=== PATIENT | male | born 1950 | race Caucasian/White ===

== ENCOUNTER → 2018-02-26 06:38 | Outpatient (CLI) | payer MEDICARE, SELFPAY ==
[2017-05-15 11:53] VITALS: BMI 35.6
--- NOTE | 2018-02-26 06:38 | DT_ITS ---
This patient was seen during an EMR downtime February 19, 2018 - February 26, 2018. This patient may have a combination of paper and electronic documentation or all paper documentation. All documentation is viewable within the e-chart portion of [employer] for each patient visit.
[2018-02-26 08:36] LABS: Microalbumin,Random Urine 26.7 mg/L (NO RANGE EST.); Microalbumin:Creatinine Ratio 164.8 mg/g CRE (<30 mg/g CRE)
[2018-02-26 08:44] LABS: ALB/GLOB Ratio 1.1 RATIO (0.9-2.4); AST(SGOT) 17 U/L (15-37); Alanine Aminotransfer ALT/SGPT 34 U/L (16-61); Albumin, Serum 4.2 g/dL (3.2-5.0); Alkaline Phosphatase 68 U/L (45-117); Anion Gap 8 (5-15); BUN 15 mg/dL (7-18); BUN/Creat Ratio 12.7 RATIO (10-20); Bilirubin, Direct 0.14 mg/dL (0.00-0.30); Chloride 105 mmol/L (98-107); Cholesterol 103 mg/dL (200); Creatinine, Serum 1.18 mg/dL (0.70-1.30); EST Glomerular Filtration Rate 65 mL/min (>60); Est Glom Filt Rate - Afr Amer 79 mL/min (>60); Globulin 3.7 g/dL (2.2-4.2); Glucose 92 mg/dL (74-106); High Density Lipoprotein 37 mg/dL; Potassium 3.8 mmol/L (3.5-5.1); Protein, Total 7.9 g/dL (6.4-8.2); Sodium Level 142 mmol/L (136-145); Triglycerides 112 mg/dL; Very Low Density Lipoprotein 22 mg/dL (5-40)
== END ==
PROVIDERS: Family Provider Preventive Medicine Occupational Medicine; PCP Preventive Medicine Occupational Medicine; Visit Provider Nurse Practitioner Family
DX: E78.2 Mixed hyperlipidemia (principal); I10 Essential (primary) hypertension
CPT/HCPCS: 36415; 80053; 80061; 82043; 82248; 82570

== ENCOUNTER 2018-03-14 08:02 | Inpatient (IN) | payer MEDICARE, SELFPAY ==
[2017-05-15 11:53] VITALS: BMI 35.6
[2018-03-14] VITALS (13 sets, daily range): BP systolic 117–191; BP diastolic 65–105; PULSE 32–122; RESP 11–16; TEMP 36.4–37.3; O2SAT 96–99; BMI 32.1
--- NOTE | 2018-03-14 08:22 | CT_ITS ---
STUDY: CT ABDOMEN AND PELVIS WITH CONTRAST REASON FOR EXAM: Male, 68 years old. Bloody stool, abdominal pain RADIATION DOSAGE (If Supplied By Facility): CTDIvol = ( 20.25 ) mGy, DLP = ( 1294.02 ) mGycm TECHNIQUE: Transaxial images were obtained from the dome of the diaphragm to the symphysis pubis with oral contrast. 100 ml of Isovue 300 contrast was administered. Sagittal and coronal images were reconstructed. Individualized dose optimization techniques were used for this CT. COMPARISON: None. FINDINGS: The visualized lung bases are unremarkable. Coronary artery calcifications are present. Normal liver. There is a small calcified gallstone. Normal spleen. Normal pancreas. Normal bilateral adrenal glands. Normal right kidney. Normal left kidney. Normal visualized stomach. There may be mild thickening to the wall of the distal esophagus. Normal small intestine. There appears to be mild wall thickening within the mid transverse colon. The appendix is visualized and appears normal. Mild atherosclerotic calcification is seen within the abdominal aorta. Normal inferior vena cava. Normal retroperitoneum. The urinary bladder is nearly empty at the time of scanning. The prostate gland is slightly enlarged. There is a small umbilical hernia containing fat. Degenerative changes are present within the lower thoracic spine. CT/Abdomen/Pelvis WITH Contrast IMPRESSION: Relatively focal thickening within the mid transverse colon. This can be further evaluated with endoscopy or contrast enema, as clinically indicated. Question mild wall thickening within the distal esophagus. This may represent esophagitis. Cholelithiasis. Additional findings, as detailed above. Electronically Signed: Cj Glover DO at 10:36 EDT Tel , Service support ,
--- NOTE | 2018-03-14 08:29 | ED.VISSUMM ---
- ER Visit Summary Date of Service: 03/14/18 Chief Complaint: GI bleed History of Present Illness: The patient is a 68 M who presents with 2 episodes of bright red blood in his stool this morning. He denies any abdominal pain. He has a history of rectal surgery several years ago and states he has poor muscle tone. He has not had a colonoscopy in the past 5 years. He has a history of gastric ulcers but no history of lower GI bleeding. He does have previous history of [place] and coronary artery disease. He has 2 cardiac stents. Plavix was held this morning. Physical Examination: Blood pressure is 191/105, otherwise vitals are normal. Patient sitting upright in bed no acute distress. Head neck examination is unremarkable. Heart is regular rate and rhythm. Lungs are clear with good air movement. Abdomen is soft and nontender. He has a small reducible periumbilical hernia. Rectal examination reveals no evidence of external hemorrhoids. There is a small amount of bright red blood on gloved finger. Test Results: CBC is remarkable only for platelet count of 125,000. Chemistry studies are normal. Coags normal. Stool guaiac is positive. CT abdomen pelvis with p.o. and IV contrast shows focal thickening within the mid transverse colon. Barium enema versus colonoscopy is recommended. Emergency Department Course and Treatment: Patient is given IV fluids here. Blood pressure is improved to 139/84. Patient had 1 episode with a bloody bowel movement while here in the emergency room. I spoke with Dr. Cueva, on-call for surgery. She will follow with the patient and plan for probable colonoscopy. I will speak with the hospitalist. Treatment Plan: [] Disposition: Admit Impression: GI bleed This note was generated with [employer] dictation software. It may contain incorrect words, spelling, and punctuation that were not noted in review of the chart prior to signing ED Disposition - Plan for ED Patient: Chief Complaint: GI Bleed Referrals: Xavier El DO [Primary Care Provider] -
[2018-03-14] MEDS: 0.9% Normal Saline 1,000 ML 150 ML IV (08:40)
[2018-03-14 09:07] LABS: International Normalized Ratio 1.2; Prothrombin Time (Protime)PT. 14.8 SECONDS (11.7-14.9)
[2018-03-14 09:08] LABS: Partial Thromboplast Time 26.8 Seconds (24.1-36.2)
[2018-03-14 09:14] LABS: Absolute Lymphocyte Count 0.68 X10^3/ul (0.83-4.51); Absolute Neutrophil Count 2.1 X10^3/uL (2.0-7.7); Basophil# 0.01 X10^3/uL; Basophil% 0.3 % (0-1); Eosinophil# 0.05 X10^3/uL; Eosinophils% 1.6 % (0-5); Hematocrit 40.9 % (40-54); Hemoglobin 13.4 g/dl (13.0-16.5); Lymphocyte # 0.68 X10^3/ul (4.0); Lymphocyte % 21.5 % (19-41); Mean Corp Hgb Conc 32.8 g/gl (32-36); Mean Corpuscular Hgb 29.2 pg (27.0-32.0); Mean Corpuscular Volume 89.1 fL (80-94); Monocyte% 9.5 % (0-10); Neutrophil # 2.13 X10^3/uL (2.7-7.7); Neutrophil % 67.1 % (47-70); Platelet Count 125 K/mm3 (150-450); RBC Distribution Width CV 12.6 % (11.6-14.6); RBC Distribution Width SD 40.2 fl (35.1-43.9); Red Blood Count 4.59 M/mm3 (4.6-6.2); White Blood Count 3.2 K/mm3 (4.4-11.0)
[2018-03-14 09:17] LABS: POSITIVE COUNT NO; POSITIVE DIFFERENTIAL NO; POSITIVE MORPHOLOGY NO
[2018-03-14 09:18] LABS: Anion Gap 7 (5-15); BUN 14 mg/dL (7-18); BUN/Creat Ratio 11.9 RATIO (10-20); Calcium,Total 8.4 mg/dL (8.5-10.1); Chloride 106 mmol/L (98-107); Creatinine, Serum 1.18 mg/dL (0.70-1.30); EST Glomerular Filtration Rate 65 mL/min (>60); Est Glom Filt Rate - Afr Amer 79 mL/min (>60); Glucose 148 mg/dL (74-106); Sodium Level 141 mmol/L (136-145)
--- NOTE | 2018-03-14 11:32 | NURSING ---
called [facility] at this time, okay to send pt.
[2018-03-14] MEDS: 0.9% Normal Saline 1,000 ML 75 ML IV (12:30)
--- NOTE | 2018-03-14 12:40 | CON.PCM_ITS ---
- Consult Date of Consult: 03/14/18 - Reason for Consult Chief Complaint: bloody bowel movements History of Present Illness: 68 y/o WM presents with sudden onset of bloody bowel movements - copious amount according to patient, began early this morning around 3:30/4:00am. CT scan reveals focal thickening of transverse colon. Denies previous colonoscopy. Has had occult stool testing intermittently and they have all been negative. No colon cancer known in immediate family. Patient has noted some gaseous distention of his abdomen. Denies any colon problems prior to this. Denies weight loss. Denies diarrhea. Has occasional constipation. Denies abdominal pain. Hgb upon admission was 13.4. Past Medical History: coronary artery disease - s/p stent placement hypertension hyperlipidemia History of peptic ulcer disease Past Surgical History: rectal surgery for rupture? 1979 kidney stone basket removal eye surgery - right coronary artery stent placement May 14, 2017 Medications: aciphex flomax imdur zestril lopressor clopidogrel atorvastatin glucosamine miralax Allergies: omeprazole Social history: TOB use denies , lives with Review of Systems: General - denies fevers, denies weight loss, denies anorexia Cardiovascular denies chest pain, walks 4-5 miles several times per week Pulmonary denies shortness of breath, denies coughing up blood, denies breathing difficulties Gastrointestinal as per HPI, history of peptic ulcers greater than 25 y ago by endoscopy Neurological denies numbness/weakness of extremities, denies seizures, denies history of head trauma, denies history of stroke Genitourinary has benign prostate hypertrophy, denies blood in urine, has history of kidney stones, denies history of kidney infections/failure Hematological denies spontaneous/prolonged bleeding, on aspirin and plavix for coronary artery stent Skin denies open non healing wounds Musculoskeletal has sciatica, complains of left shoulder pain Endocrine denies diabetes Psychological denies suicidal ideation, denies hallucinations Physical examination: Vital signs Temp 97.9F HR 56 RR 16 BP 118/78 Ht: 5'11 Wt: 104.4 kg General WD/WN WM in no apparent distress, alert and oriented, not septic appearing HEENT Normocephalic. EOM intact with sclera clear and no icterus noted. Neck is supple with no jugular venous distention noted. Trachea is midline. Lungs clear to auscultation. normal breath sounds in all lung [place]. No rales/rhonchi/wheezing noted. No labored breathing noted, such as retractions. Heart normal S1 and S2 auscultated. No rubs/clicks/murmurs noted. Normal size and location by auscultation. Abdomen soft and benign, protuberant Normal bowel sounds area auscultated. No abdominal bruits noted. Umbilical hernia present Extremities no calf tenderness noted. No pitting edema noted. Genitourinary/Rectal deferred Skin normal skin integrity. Neurological cranial nerves II-XII intact. Normal motor strength in arms and legs. No localized numbness detected. Psychological normal affect, patient is calm and appropriate Impression: bloody bowel movements abnormal CT scan - transverse colon lesion Discussion/Plan: I have discussed the above with the patient and his who is present with him. I have offered evaluation with colonoscopy/EGD, possible biopsies. Plan for this tomorrow around noon. I have explained the procedure to the patient. I have counseled the patient as to the risks of the procedure, including but not limited to: infection, bleeding, injury to any blood vessels/nerves, scar tissue, injury to any intrabdominal such as the liver/spleen, perforation of the GI tract, inability to complete the procedure, complications of anesthesia, etc. the patient understands. He agrees to proceed. I have answered all questions to the patient?s satisfaction and the patient has no further questions.
--- NOTE | 2018-03-14 14:27 | PCM.HP.STD ---
Problem List (1) GI bleed Status: Acute History of Present Illness Date of Admission: 03/14/18 Chief Complaint: rectal bleeding. The patient is a 68 year old M who was in his normal state of health but today noted blood in his stool ?2 at home. Patient presented to the emergency room where he had bloody bowel movements. Patient had a CAT scan that showed some relatively focal thickening within the mid transverse colon. Dr. Cueva, of general surgery, was contacted and see that she would happily see the patient consultation. Patient denies any history of GI bleed before. He denies any abdominal pain but does state that he has some cramping right before he has a bloody bowel movement. [] Past Medical History Past Medical History (Chronic Problems): Chronic Problems (Last Updated 08/25/17 @ 07:57 by Fady Will NP-C) Hyperlipemia, mixed (Chronic) Essential (primary) hypertension (Chronic) Atherosclerotic heart disease of [place] coronary artery without angina pectoris (Chronic) HTN (hypertension) (Chronic) HLD (hyperlipidemia) (Chronic) Peptic ulcer disease (Chronic) Medical History: Medical History (Last Reviewed 03/14/18 @ 14:28 by Yonathan Pozo DO) Hyperlipemia, mixed (Chronic) E78.2 Essential (primary) hypertension (Chronic) I10 Atherosclerotic heart disease of [place] coronary artery without angina pectoris (Chronic) I25.10 Chest pain (Acute) R07.9 NSTEMI (non-ST elevated myocardial infarction) (Acute) I21.4 Peptic ulcer disease (Chronic) K27.9 BPH (benign prostatic hyperplasia) N40.0 GERD (gastroesophageal reflux disease) K21.9 Hyperglycemia R73.9 Allergies omeprazole [From Prilosec] Adverse Reaction (Verified 03/14/18 08:05) lowers WBCs Home Medications: Ambulatory Orders Medication Instructions Recorded Psyllium [Metamucil] 1 packet PO DAILY 05/13/17 Rabeprazole Sodium [Aciphex] 20 mg PO BID 05/13/17 Tamsulosin HCl [Flomax] 0.4 mg PO QHS 05/13/17 Aspirin E.C. [Ecotrin] 81 mg PO DAILY@0800 #30 tablet 05/16/17 Isosorbide Mononitrate [Imdur] 30 mg PO DAILY #30 tab 05/16/17 Lisinopril [Zestril] 20 mg PO DAILY #30 tab 05/16/17 Metoprolol Tartrate [Lopressor 25 mg PO BID #60 tab 05/16/17 (beta mandeep)] clopidogrel 75 mg tablet 75 mg PO DAILY 08/23/17 atorvastatin 80 mg tablet 80 mg PO QHS 08/24/17 docusate sodium 100 mg capsule 100 mg PO BID 08/25/17 triamcinolone acetonide 55 2 spray INTRANASAL QHS 08/25/17 mcg/actuation nasal spray,aerosol Glucosamine/MSM/Chondroitin A 1 each PO DAILY 03/14/18 [Glucosamine Chondroit MSM Tab] Polyethylene Glycol 3350 [Miralax] 17 gm PO DAILY 03/14/18 Surgical History: Surgical History (Last Reviewed 03/14/18 @ 14:28 by Yonathan Pozo DO) H/O removal of cyst Z98.890 History of left heart catheterization Z98.890 PTCA/JAYLIN of proximal RCA 05/15/17 History of percutaneous coronary intervention Z98.890 PTCA/JAYLIN of proximal RCA 05/15/17 History of rectal surgery Z98.890 Kidney stone removal Right eye surgery Surgical History: - - kidney stone removal w/stent, rectal surgery, laser eye surgery, right wrist cyst removed. Smoking Status: Never smoker - *Family History Paternal Family History: Family History (Last Reviewed 03/14/18 @ 14:29 by Yonathan Pozo DO) Father CAD (coronary artery disease) Mother CAD (coronary artery disease) History Items: Heart Disease Maternal Family History: Family History (Last Reviewed 03/14/18 @ 14:29 by Yonathan Pozo DO) Father CAD (coronary artery disease) Mother CAD (coronary artery disease) History Items: Heart Disease Review of Systems Constitutional: Denies: Chills, Fever, Weight Change Eyes: Denies: Blurred vision, Double vision HEENT: Denies: Head Aches, Sinus Congestion, Sinus Drainage Cardiovascular: Denies: Chest Pain, Palpitations Respiratory: Denies: Cough, Shortness of breath at rest, Sputum production Gastrointestinal: Reports: Hematochezia. Denies: Abdominal Pain, Nausea Genitourinary: Denies: Dysuria Musculoskeletal: Denies: Joint Pain, Joint Tenderness Skin: Denies: Rash, Wounds Neurological: Denies: Numbness, Tingling, Focal weakness Psychiatric: Denies: Anxiety, Depression, Homicidal Ideations, Suicidal Ideations Hematologic/ Lymphatic: Denies: Easy Bruising, Easy Bleeding, Hx of blood clot VTE Information - Inpt Only VTE Present on Admission: No VTE Mechan Device Prophylaxis: SCD's VTE Pharm Prophylaxis ordered?: No Reason prophylaxis not ordered:: Medical Contraindication Patient Problems: Active and Suspected Problems (Last Updated 08/25/17 @ 07:57 by Fady Will SCHOOL ATHLETIC DIRECTOR-C) GI bleed (Acute) - Physical Exam General: Alert, Cooperative, No apparent distress HEENT: Atraumatic, Normocephalic Oral: Moist Mucosa, No Gingival or Mucosal Lesions/ Ulcerations Neck: No Nodes, Thyroid Normal Size and Texture Lungs: Clear to auscultation, Normal air movement, No rhonchi, No wheeze Cardiovascular: Regular rate, Regular Rhythm, Normal S1, Normal S2, No murmurs Abdomen: Bowel Sounds Present, Soft, Non Tender, Non-Distended, No Hepato-splenomegaly Extremities: No clubbing, No cyanosis, No edema, No Calf Tenderness Skin: No rashes, No breakdown Musculoskeletal: No Tenderness to Palpation of Joints or Extremities, No Muscle Wasting Neurological: Neuro grossly intact, Sensory exam intact to light touch and pain, Coordination normal Psych/Mental Status: Normal Affect, Appropriate Vital Signs Temp Pulse Resp BP Pulse Ox 37.3 C 56 L 16 119/73 98 03/14/18 12:20 03/14/18 12:29 03/14/18 12:20 03/14/18 12:20 03/14/18 12:20 Oxygen Delivery Method Room Air Weight: 104.4 kg Body Mass Index (BMI) 32.1 Clinical Impression(s) from Imaging Studies Abdomen/Pelvis CT 03/14/18 08:22 IMPRESSION: Relatively focal thickening within the mid transverse colon. This can be further evaluated with endoscopy or contrast enema, as clinically indicated. Question mild wall thickening within the distal esophagus. This may represent esophagitis. Cholelithiasis. Additional findings, as detailed above. Electronically Signed: Cj Glover DO at 10:36 EDT Tel , Service support , Assessment/Plan All Active Problems (Last Updated 08/25/17 @ 07:57 by Fady Will, SCHOOL ATHLETIC DIRECTOR-C) GI bleed (Acute) Chest pain (Acute) NSTEMI (non-ST elevated myocardial infarction) (Acute) 1. GI bleed I suspect it is probably related with diverticulosis or internal hemorrhoids as it is painless. The area of focal thickening may be no inflammation is patient really does not not have any abdominal pain This is also comp gated by the fact the patient is on dual antiplatelet therapy for coronary artery disease with a drug-eluting stent placed in April 2017 Discussed with the patient and his that if patient's bleeding becomes refractory that we may need transfer to a tertiary facility for bleeding scan and possible coil embolization. 2. Coronary artery disease Status post drug-eluting stent Patient is not quite a year out so will need to continue with the doing the therapy for now Follow-up with cardiology as outpatient 3. DVT prophylaxis with SCDs. Chemical prophylaxis contraindicated in light of the acute GI bleed. Code Visit Inpatient E&M: 17105 Init Hosp L3
--- NOTE | 2018-03-14 14:33 | HP.PCM_ITS ---
Problem List (1) GI bleed Status: Acute History of Present Illness Date of Admission: 03/14/18 Chief Complaint: rectal bleeding. The patient is a 68 year old M who was in his normal state of health but today noted blood in his stool ?2 at home. Patient presented to the emergency room where he had bloody bowel movements. Patient had a CAT scan that showed some relatively focal thickening within the mid transverse colon. Dr. Cueva, of general surgery, was contacted and see that she would happily see the patient consultation. Patient denies any history of GI bleed before. He denies any abdominal pain but does state that he has some cramping right before he has a bloody bowel movement. [] Past Medical History Past Medical History (Chronic Problems): Chronic Problems (Last Updated 08/25/17 @ 07:57 by Fady Will NP-C) Hyperlipemia, mixed (Chronic) Essential (primary) hypertension (Chronic) Atherosclerotic heart disease of [place] coronary artery without angina pectoris (Chronic) HTN (hypertension) (Chronic) HLD (hyperlipidemia) (Chronic) Peptic ulcer disease (Chronic) Medical History: Medical History (Last Reviewed 03/14/18 @ 14:28 by Yonathan Pozo DO) Hyperlipemia, mixed (Chronic) E78.2 Essential (primary) hypertension (Chronic) I10 Atherosclerotic heart disease of [place] coronary artery without angina pectoris (Chronic) I25.10 Chest pain (Acute) R07.9 NSTEMI (non-ST elevated myocardial infarction) (Acute) I21.4 Peptic ulcer disease (Chronic) K27.9 BPH (benign prostatic hyperplasia) N40.0 GERD (gastroesophageal reflux disease) K21.9 Hyperglycemia R73.9 Allergies omeprazole [From Prilosec] Adverse Reaction (Verified 03/14/18 08:05) lowers WBCs Home Medications: Ambulatory Orders Medication Instructions Recorded Psyllium [Metamucil] 1 packet PO DAILY 05/13/17 Rabeprazole Sodium [Aciphex] 20 mg PO BID 05/13/17 Tamsulosin HCl [Flomax] 0.4 mg PO QHS 05/13/17 Aspirin E.C. [Ecotrin] 81 mg PO DAILY@0800 #30 tablet 05/16/17 Isosorbide Mononitrate [Imdur] 30 mg PO DAILY #30 tab 05/16/17 Lisinopril [Zestril] 20 mg PO DAILY #30 tab 05/16/17 Metoprolol Tartrate [Lopressor 25 mg PO BID #60 tab 05/16/17 (beta mandeep)] clopidogrel 75 mg tablet 75 mg PO DAILY 08/23/17 atorvastatin 80 mg tablet 80 mg PO QHS 08/24/17 docusate sodium 100 mg capsule 100 mg PO BID 08/25/17 triamcinolone acetonide 55 2 spray INTRANASAL QHS 08/25/17 mcg/actuation nasal spray,aerosol Glucosamine/MSM/Chondroitin A 1 each PO DAILY 03/14/18 [Glucosamine Chondroit MSM Tab] Polyethylene Glycol 3350 [Miralax] 17 gm PO DAILY 03/14/18 Surgical History: Surgical History (Last Reviewed 03/14/18 @ 14:28 by Yonathan Pozo DO) H/O removal of cyst Z98.890 History of left heart catheterization Z98.890 PTCA/JAYLIN of proximal RCA 05/15/17 History of percutaneous coronary intervention Z98.890 PTCA/JAYLIN of proximal RCA 05/15/17 History of rectal surgery Z98.890 Kidney stone removal Right eye surgery Surgical History: - - kidney stone removal w/stent, rectal surgery, laser eye surgery, right wrist cyst removed. Smoking Status: Never smoker - *Family History Paternal Family History: Family History (Last Reviewed 03/14/18 @ 14:29 by Yonathan Pozo DO) Father CAD (coronary artery disease) Mother CAD (coronary artery disease) History Items: Heart Disease Maternal Family History: Family History (Last Reviewed 03/14/18 @ 14:29 by Yonathan Pozo DO) Father CAD (coronary artery disease) Mother CAD (coronary artery disease) History Items: Heart Disease Review of Systems Constitutional: Denies: Chills, Fever, Weight Change Eyes: Denies: Blurred vision, Double vision HEENT: Denies: Head Aches, Sinus Congestion, Sinus Drainage Cardiovascular: Denies: Chest Pain, Palpitations Respiratory: Denies: Cough, Shortness of breath at rest, Sputum production Gastrointestinal: Reports: Hematochezia. Denies: Abdominal Pain, Nausea Genitourinary: Denies: Dysuria Musculoskeletal: Denies: Joint Pain, Joint Tenderness Skin: Denies: Rash, Wounds Neurological: Denies: Numbness, Tingling, Focal weakness Psychiatric: Denies: Anxiety, Depression, Homicidal Ideations, Suicidal Ideations Hematologic/ Lymphatic: Denies: Easy Bruising, Easy Bleeding, Hx of blood clot VTE Information - Inpt Only VTE Present on Admission: No VTE Mechan Device Prophylaxis: SCD's VTE Pharm Prophylaxis ordered?: No Reason prophylaxis not ordered:: Medical Contraindication Patient Problems: Active and Suspected Problems (Last Updated 08/25/17 @ 07:57 by Fady Will MAINTENANCE DIRECTOR- C) GI bleed (Acute) - Physical Exam General: Alert, Cooperative, No apparent distress HEENT: Atraumatic, Normocephalic Oral: Moist Mucosa, No Gingival or Mucosal Lesions/ Ulcerations Neck: No Nodes, Thyroid Normal Size and Texture Lungs: Clear to auscultation, Normal air movement, No rhonchi, No wheeze Cardiovascular: Regular rate, Regular Rhythm, Normal S1, Normal S2, No murmurs Abdomen: Bowel Sounds Present, Soft, Non Tender, Non-Distended, No Hepato- splenomegaly Extremities: No clubbing, No cyanosis, No edema, No Calf Tenderness Skin: No rashes, No breakdown Musculoskeletal: No Tenderness to Palpation of Joints or Extremities, No Muscle Wasting Neurological: Neuro grossly intact, Sensory exam intact to light touch and pain , Coordination normal Psych/Mental Status: Normal Affect, Appropriate Vital Signs Temp Pulse Resp BP Pulse Ox 37.3 C 56 L 16 119/73 98 03/14/18 12:20 03/14/18 12:29 03/14/18 12:20 03/14/18 12:20 03/14/18 12:20 Oxygen Delivery Method Room Air Weight: 104.4 kg Body Mass Index (BMI) 32.1 Clinical Impression(s) from Imaging Studies Abdomen/Pelvis CT 03/14/18 08:22 IMPRESSION: Relatively focal thickening within the mid transverse colon. This can be further evaluated with endoscopy or contrast enema, as clinically indicated. Question mild wall thickening within the distal esophagus. This may represent esophagitis. Cholelithiasis. Additional findings, as detailed above. Electronically Signed: Cj Glover DO at 10:36 EDT Tel , Service support , Assessment/Plan All Active Problems (Last Updated 08/25/17 @ 07:57 by Fady Will, MAINTENANCE DIRECTOR-C) GI bleed (Acute) Chest pain (Acute) NSTEMI (non-ST elevated myocardial infarction) (Acute) 1. GI bleed * I suspect it is probably related with diverticulosis or internal hemorrhoids as it is painless. * The area of focal thickening may be no inflammation is patient really does not not have any abdominal pain * This is also comp gated by the fact the patient is on dual antiplatelet therapy for coronary artery disease with a drug-eluting stent placed in April 2017 * Discussed with the patient and his that if patient's bleeding becomes refractory that we may need transfer to a tertiary facility for bleeding scan and possible coil embolization. 2. Coronary artery disease * Status post drug-eluting stent * Patient is not quite a year out so will need to continue with the doing the therapy for now * Follow-up with cardiology as outpatient 3. DVT prophylaxis with SCDs. Chemical prophylaxis contraindicated in light of the acute GI bleed. Code Visit Inpatient E&M: 67784 Init Hosp L3
[2018-03-14] MEDS: Electrolyte Solution/Peg's 4000 ML 2000 ML PO (15:58)
[2018-03-14 18:43] LABS: Absolute Lymphocyte Count 1.03 X10^3/ul (0.83-4.51); Absolute Neutrophil Count 4.2 X10^3/uL (2.0-7.7); Basophil# 0.01 X10^3/uL; Basophil% 0.2 % (0-1); Eosinophil# 0.05 X10^3/uL; Eosinophils% 0.9 % (0-5); Hematocrit 36.5 % (40-54); Hemoglobin 12.1 g/dl (13.0-16.5); Lymphocyte # 1.03 X10^3/ul (4.0); Lymphocyte % 18.4 % (19-41); Mean Corp Hgb Conc 33.2 g/gl (32-36); Mean Corpuscular Hgb 29.4 pg (27.0-32.0); Mean Corpuscular Volume 88.8 fL (80-94); Mean Platelet Vol. 9.2 fl (6.2-12.0); Monocyte% 5.3 % (0-10); Neutrophil # 4.21 X10^3/uL (2.7-7.7); Platelet Count 140 K/mm3 (150-450); RBC Distribution Width CV 12.6 % (11.6-14.6); RBC Distribution Width SD 40.5 fl (35.1-43.9); Red Blood Count 4.11 M/mm3 (4.6-6.2); White Blood Count 5.6 K/mm3 (4.4-11.0)
[2018-03-14 18:45] LABS: POSITIVE COUNT NO; POSITIVE DIFFERENTIAL NO; POSITIVE MORPHOLOGY NO
[2018-03-14] MEDS: Ondansetron 4 MG/2 ML Vial IV (21:43)
[2018-03-14 22:05] LABS: Hematocrit 32.6 % (40-54); Hemoglobin 10.9 g/dl (13.0-16.5)
[2018-03-14] MEDS: Fluticasone 0.05% 1 SPRAY NASAL.SRY 2 SPRAY NASAL (22:08)
[2018-03-14] MEDS: Pantoprazole Sodium 20 MG Tablet PO (22:09)
[2018-03-14] MEDS: Atorvastatin Calcium 80 MG Tablet PO (22:10)
--- NOTE | 2018-03-14 22:57 | CCHN_ITS ---
Hospitalist Note Hospitalist note: Patient had an episode of severe sinus bradycardia while having a bowel movement tonight during his prep for colonoscopy tomorrow. Patient had a large melanotic stool, I did an H&H and his hemoglobin was 10.9 which is dropped a little from his admission H&H. I elected to stop his Plavix , his drug-eluting stent was placed last April and the right coronary artery- he had 2 stents placed. I talked to Dr. Donnie kidd and let him know that I stopped the Plavix and he is in agreement with this.
[2018-03-15] VITALS (16 sets, daily range): BP systolic 100–125; BP diastolic 51–71; PULSE 56–105; RESP 16; TEMP 36.4–37.1; O2SAT 95–100; BMI 32.1
--- NOTE | 2018-03-15 | IMM_PTH ---
PATIENT: MYRNA CAPPS Jr. LOC: [facility] U#:[id number] AGE/SX: 68/M ROOM: [facility] RE03/14/[address]: Dr. Yonathan Pozo DO : 1950 BED: 1 DIS: 03/17/2018 SPEC #: [id number] RECD: 03/16/18 10:29 STATUS: KEO REQ #: [id number] DAYANARA: 03/15/18 00:[address]: Yonathan Pozo DEPT: IMMUNOHISTOCHEMISTRY RECD BY: Christine Harding ENTERED: 03/16/18 10:30 SP TYPE: IMMUNO OTHR DR: MD Dr. Xavier Barfield DO Tissues: Gastric mucous membrane Procedures: H Pylori (initial) MSH2 (add) MLH-1 (add) MSH6 (add) Anti-PMS2 (add) DUFFY-2 (add) KI-67 (add) P53 (add) PHYSICIAN & [address] [address] SPECIMEN INFORMATION: Tissue Source: A. Antral biopsy, C. Transverse colon mass, biopsy Clinical Info: GI bleed Specimen Number: [id number] Latoya Lopez CPT code: 13496w6, 58076X1 METHODOLOGY: Deparaffinized sections of prefer/formalin-fixed tissue or PAP/DQ stained slides are incubated with monoclonal/polyclonal antibodies/oligonucleotide probes. Localization is made via biotin free immunoperoxidase method. Appropriate controls are performed and reacted as expected. Results on target cell population are indicated in the following table: RESULTS: ANTIBODY / CLONE RESULT Block A H Pylori (polyclonal) negative Block C COLON CANCER PROFILE (Prognostic Markers) Ki-67 (30-9) positive P53 (DO-7) positive MSH2 (25D12) positive MSH6 (44) positive MLH-1 (M1) positive PMS2 (EPT2214) positive DUFFY-2 (SP21) positive These tests were developed and their performance characteristics determined by [facility]. They may not have been cleared or approved by the U.S. Food and Drug Administration. The FDA has determined that such clearance or approval is not necessary. INTERPRETATION: A. Antral biopsy: Negative for Helicobacter pylori organisms. C. Transverse colon mass, biopsy: Invasive adenocarcinoma Result of Microsatellite Instability Study: Negative (no loss of mismatch protein; no microsatellite instability detected). SJ:sandra 03/19/18
--- NOTE | 2018-03-15 | GASB_PTH ---
PATIENT: MYRNA CAPPS Jr. LOC: [facility] U#:[id number] AGE/SX: 68/M ROOM: [facility] RE03/14/[address]: Dr. Yonathan Pozo DO : 1950 BED: 1 DIS: 03/17/2018 SPEC #: [id number] RECD: 03/15/18 14:08 STATUS: KEO RELg #: [id number] DAYANARA: 03/15/18 00:[address]: Yonathan Pozo DEPT: SURGICAL PATHOLOGY RECD BY: Haile Mayo ENTERED: 03/15/18 14:09 SP TYPE: Gastric Bx OTHR DR: MD Dr. Xavier Barfield DO Tissues: A - Gastric mucous membrane B - Gastric mucous membrane C - Transverse colon Procedures: Surgery Specimen Level IV HEADER OPERATION: EGD and colonoscopy PRE-OP DIAGNOSIS: GI bleed TISSUE SUBMITTED: A. Antral biopsy, B. Gastric polyp biopsy, C. Transverse colon mass biopsy MICROSCOPIC DIAGNOSIS A. Antral biopsy: Mild gastritis. B. Gastric polyp, biopsy: Fundic gland polyp. C. Transverse colon mass, biopsy: Invasive moderately differentiated adenocarcinoma. See comment. SORAYA:farida 03/16/18 COMMENT A. The results of immunohistochemistry for Helicobacter pylori will be reported separately ([id number]). C. A fragment of tubular adenoma is also noted. Results of mismatched repair protein (MMR) by immunohistochemistry ([id number]) will be reported separately. MICROSCOPIC DESCRIPTION Slides are reviewed. A. The specimen shows fragments of gastric mucosa with chronic inflammatory cell infiltrates in the lamina propria consisting of lymphocytes and plasma cells, consistent with mild chronic gastritis. GROSS DESCRIPTION A. Received in fixative is one container labeled with the patient's name and designated antral biopsy. The specimen consists of one irregular fragment of becker soft tissue that measures 0.5 x 0.2 x 0.1 cm. . The entire specimen is submitted in one cassette. B. Received in fixative is one container labeled with the patient's name and designated gastric polyp biopsy. The specimen consists of a becker-pink polyp that measures 1.5 x 1 x 0.3 cm. The entire specimen is submitted in one cassette. C. Received in fixative is one container labeled with the patient's name and designated transverse colon mass biopsy. The specimen consists of multiple irregular fragments of light becker soft tissue that in aggregate measure 0.8 x 0.3 x 0.1 cm. The specimen is totally submitted in one cassette. SJ:farida 03/15/18 TC:0 CPT: 86918 x3
[2018-03-15] MEDS: 0.9% Normal Saline 1,000 ML 75 ML IV ×2 (04:06→12:35)
[2018-03-15] MEDS: Electrolyte Solution/Peg's 4000 ML 2000 ML PO (04:08)
[2018-03-15 06:39] LABS: Absolute Lymphocyte Count 0.82 X10^3/ul (0.83-4.51); Absolute Neutrophil Count 4.4 X10^3/uL (2.0-7.7); Basophil# 0.01 X10^3/uL; Basophil% 0.2 % (0-1); Eosinophil# 0.03 X10^3/uL; Eosinophils% 0.5 % (0-5); Hematocrit 32.5 % (40-54); Hemoglobin 10.7 g/dl (13.0-16.5); Lymphocyte # 0.82 X10^3/ul (4.0); Lymphocyte % 14.6 % (19-41); Mean Corp Hgb Conc 32.9 g/gl (32-36); Mean Corpuscular Hgb 29.1 pg (27.0-32.0); Mean Corpuscular Volume 88.3 fL (80-94); Monocyte# 0.39 X10^3/uL; Monocyte% 6.9 % (0-10); Neutrophil # 4.36 X10^3/uL (2.7-7.7); Neutrophil % 77.6 % (47-70); Platelet Count 145 K/mm3 (150-450); RBC Distribution Width CV 12.7 % (11.6-14.6); RBC Distribution Width SD 40.6 fl (35.1-43.9); Red Blood Count 3.68 M/mm3 (4.6-6.2); White Blood Count 5.6 K/mm3 (4.4-11.0)
[2018-03-15 06:44] LABS: POSITIVE COUNT NO; POSITIVE DIFFERENTIAL NO; POSITIVE MORPHOLOGY NO
[2018-03-15 06:59] LABS: Anion Gap 7 (5-15); BUN 11 mg/dL (7-18); BUN/Creat Ratio 9.8 RATIO (10-20); Calcium,Total 8.1 mg/dL (8.5-10.1); Chloride 110 mmol/L (98-107); Creatinine, Serum 1.12 mg/dL (0.70-1.30); EST Glomerular Filtration Rate 70 mL/min (>60); Est Glom Filt Rate - Afr Amer 84 mL/min (>60); Estimated Creatinine Clearance 68.17 ml/min; Glucose 123 mg/dL (74-106); Potassium 3.9 mmol/L (3.5-5.1); Sodium Level 143 mmol/L (136-145)
[2018-03-15] MEDS: Lisinopril 20 MG Tablet PO (09:29)
[2018-03-15] MEDS: Isosorbide Mononitrate 30 MG Tablet PO (09:29)
--- NOTE | 2018-03-15 09:40 | NURSING ---
Called report to Angelica in AC at this time.
--- NOTE | 2018-03-15 12:05 | CASEMGMT ---
This RN CM to room to complete CM assessment and pt is still out of the dept at this time. [place] RN CM
[2018-03-15] MEDS: Tamsulosin HCl 0.4 MG Capsule PO (14:28)
[2018-03-15] MEDS: Pantoprazole Sodium 20 MG Tablet PO ×2 (14:28→21:33)
[2018-03-15 15:03] LABS: Absolute Lymphocyte Count 0.71 X10^3/ul (0.83-4.51); Absolute Neutrophil Count 3.1 X10^3/uL (2.0-7.7); Basophil# 0.01 X10^3/uL; Basophil% 0.2 % (0-1); Eosinophil# 0.02 X10^3/uL; Eosinophils% 0.5 % (0-5); Hematocrit 26.9 % (40-54); Lymphocyte # 0.71 X10^3/ul (4.0); Lymphocyte % 17.4 % (19-41); Mean Corp Hgb Conc 33.5 g/gl (32-36); Mean Corpuscular Hgb 29.6 pg (27.0-32.0); Mean Corpuscular Volume 88.5 fL (80-94); Mean Platelet Vol. 8.8 fl (6.2-12.0); Monocyte# 0.29 X10^3/uL; Monocyte% 7.1 % (0-10); Neutrophil # 3.06 X10^3/uL (2.7-7.7); Neutrophil % 74.8 % (47-70); POSITIVE COUNT NO; POSITIVE DIFFERENTIAL NO; POSITIVE MORPHOLOGY NO; Platelet Count 125 K/mm3 (150-450); RBC Distribution Width CV 12.8 % (11.6-14.6); RBC Distribution Width SD 41.3 fl (35.1-43.9); Red Blood Count 3.04 M/mm3 (4.6-6.2); White Blood Count 4.1 K/mm3 (4.4-11.0)
--- NOTE | 2018-03-15 15:07 | CASEMGMT ---
Face to Face with patient for initial transition planning/care coordination assessment. SHEN CHANEY introduced self and role at [facility], pt voices understanding and consents to assessment at this time. Pt is sitting up in bed in no distress at this time. Pt is A/O x4 at this time and answers all questions appropriately at this time. Care providers, pharmacy, and demographics verified. See attached link. Pt voices no further concerns/needs at this time. Advised pt to ask for CM if any further questions/concerns/needs arise, voices understanding. PLAN: Home [place] SHEN CHANEY
--- NOTE | 2018-03-15 15:23 | PCM.PROGNOTE ---
<Chinmay Perea - Last Filed: 03/15/18 15:23> Patient Problems: Active and Suspected Problems (Last Reviewed 03/14/18 @ 14:28 by Yonathan Pozo DO) GI bleed (Acute) Subjective: Pt continued to have bloody stools up to 0800 today. Underwent colonoscopy - apparently had a mass in the colon suspicious for cancer, waiting for official report. Pt agreeable to resection. Asa/plavix will be stopped. No abdominal pain. He complains of bloating post procedure. No nausea/vomiting. No LH/dizziness/palpitations/CP/SOB. - Physical Exam General: Alert, Oriented x3, Cooperative HEENT: Atraumatic, PERRLA, EOMI, Normocephalic Neck: Supple, No JVD, Negative Carotid Bruits Lungs: Clear to auscultation, Normal air movement Cardiovascular: Regular rate, No murmurs Abdomen: Bowel Sounds Present, Soft, Non Tender Extremities: No edema, Capillary Refill Less than 3 Seconds Skin: No rashes, No breakdown Musculoskeletal: No Tenderness to Palpation of Joints or Extremities Neurological: Cranial nerves II-XII grossly intact Psych/Mental Status: Normal Affect, Appropriate, Alert and oriented to time, place, person, mood and affect Vital Signs Temp Pulse Resp BP Pulse Ox 98.2 F 68 16 114/59 L 96 03/15/18 13:35 03/15/18 13:35 03/15/18 13:35 03/15/18 13:35 03/15/18 13:35 Oxygen Flow Rate (L/min) 6 Oxygen Delivery Method Room Air Weight: 104.4 kg Body Mass Index (BMI) 32.1 Intake and Output for Last 24 Hours 03/13/18 03/14/18 03/15/18 23:59 23:59 23:59 Intake Total 2877 / 2877 1793 / 1793 Output Total 450 / 450 1974 Balance 2427 / 2427 -182 / -182 Laboratory Tests Past 24 Hrs 03/14/18 03/14/18 03/15/18 18:01 21:57 06:00 WBC 5.6 RBC 4.11 L Hgb 12.1 L 10.9 L Hct 36.5 L 32.6 L MCV 88.8 MCH 29.4 MCHC 33.2 RDW 12.6 RDW Differential 40.5 Plt Count 140 L MPV 9.2 Immature Gran % (Auto) 0.200 Neut % (Auto) 75.0 H Lymph % (Auto) 18.4 L [place] % (Auto) 5.3 Eos % (Auto) 0.9 Baso % (Auto) 0.2 Absolute Neuts (auto) 4.2 Absolute Lymphs (auto) 1.03 Total Counted Not Reportable Sodium 143 Potassium 3.9 Chloride 110 H Carbon Dioxide 26.0 Anion Gap 7 BUN 11 Creatinine 1.12 Estim Creat Clear Calc 68.17 Est GFR (MDRD) Af Amer 84 Est GFR (MDRD) Non-Af 70 BUN/Creatinine Ratio 9.8 L Glucose 123 H Calcium 8.1 L 03/15/18 03/15/18 06:00 14:20 WBC 5.6 4.1 L RBC 3.68 L 3.04 L Hgb 10.7 L 9.0 L Hct 32.5 L 26.9 L MCV 88.3 88.5 MCH 29.1 29.6 MCHC 32.9 33.5 RDW 12.7 12.8 RDW Differential 40.6 41.3 Plt Count 145 L 125 L MPV 9.0 8.8 Immature Gran % (Auto) 0.200 0.000 Neut % (Auto) 77.6 H 74.8 H Lymph % (Auto) 14.6 L 17.4 L [place] % (Auto) 6.9 7.1 Eos % (Auto) 0.5 0.5 Baso % (Auto) 0.2 0.2 Absolute Neuts (auto) 4.4 3.1 Absolute Lymphs (auto) 0.82 L 0.71 L Total Counted Not Reportable Not Reportable Sodium Potassium Chloride Carbon Dioxide Anion Gap BUN Creatinine Estim Creat Clear Calc Est GFR (MDRD) Af Amer Est GFR (MDRD) Non-Af BUN/Creatinine Ratio Glucose Calcium Medical Necessity - Tobacco Use Smoking Status: Never smoker Assessment/Plan All Active Problems (Last Reviewed 03/14/18 @ 14:28 by Yonathan Pozo DO) GI bleed (Acute) Chest pain (Acute) NSTEMI (non-ST elevated myocardial infarction) (Acute) 1. Acute blood loss anemia 2/2 lower GI bleed 2/2 colonic mass - Gen surgery following: Cueva/Hanna. Trend Hgb. DC asa/plavix. CT with 2. Vasovagal syncope 2/2 blood loss and bearing down with large bloody BM last night - stable. Maintain on tele. AM lopressor held. 3. CAD s/p drug eluding stent / NSTEMI last April. continue statin, BB tonight if pulse/bp stable, ANETA-I, imdur. 4. HTN - controlled 5. HLD - statin 6. BPH - flomax 7. PUD/GERD - PPI. 8. Hyperglycemia with A1C 6.2% (last april) c/w prediabetes , with obesity - start DM diet when appropriate. Recheck as it has been >3 months (10). Given cardiac hx would benefit from starting oral antidiabetic medication 9. Pancytopenia suspect 2/2 colorectal cancer. DVT ppx: SCDs DC planning: trend Hgb overnight. This patient was seen by Chinmay Perea PA-C under the supervision of Doctor Nohelia. <Yonathan Pozo - Last Filed: 03/15/18 16:29> - Physical Exam General: Alert, Cooperative HEENT: Atraumatic Lungs: Clear to auscultation, Normal air movement, No rhonchi, No wheeze Cardiovascular: Regular rate, Regular Rhythm, Normal S1, Normal S2 Abdomen: Bowel Sounds Present, Soft, Non Tender, Non-Distended, No Hepato-splenomegaly Psych/Mental Status: Normal Affect, Appropriate Vital Signs Temp Pulse Resp BP Pulse Ox 36.8 C 70 16 114/59 L 96 03/15/18 13:35 03/15/18 15:13 03/15/18 13:35 03/15/18 13:35 03/15/18 13:35 Oxygen Flow Rate (L/min) 6 Oxygen Delivery Method Room Air Weight: 104.4 kg Body Mass Index (BMI) 32.1 Intake and Output for Last 24 Hours 03/13/18 03/14/18 03/15/18 23:59 23:59 23:59 Intake Total 2877 / 2877 1793 / 1793 Output Total 450 / 450 1974 / 1974 Balance 2427 / 2427 -182 / -182 Laboratory Tests Past 24 Hrs 03/14/18 03/14/18 03/15/18 18:01 21:57 06:00 WBC 5.6 RBC 4.11 L Hgb 12.1 L 10.9 L Hct 36.5 L 32.6 L MCV 88.8 MCH 29.4 MCHC 33.2 RDW 12.6 RDW Differential 40.5 Plt Count 140 L MPV 9.2 Immature Gran % (Auto) 0.200 Neut % (Auto) 75.0 H Lymph % (Auto) 18.4 L [place] % (Auto) 5.3 Eos % (Auto) 0.9 Baso % (Auto) 0.2 Absolute Neuts (auto) 4.2 Absolute Lymphs (auto) 1.03 Total Counted Not Reportable Sodium 143 Potassium 3.9 Chloride 110 H Carbon Dioxide 26.0 Anion Gap 7 BUN 11 Creatinine 1.12 Estim Creat Clear Calc 68.17 Est GFR (MDRD) Af Amer 84 Est GFR (MDRD) Non-Af 70 BUN/Creatinine Ratio 9.8 L Glucose 123 H Hemoglobin A1c Calcium 8.1 L 03/15/18 03/15/18 03/15/18 06:00 06:00 14:20 WBC 5.6 4.1 L RBC 3.68 L 3.04 L Hgb 10.7 L 9.0 L Hct 32.5 L 26.9 L MCV 88.3 88.5 MCH 29.1 29.6 MCHC 32.9 33.5 RDW 12.7 12.8 RDW Differential 40.6 41.3 Plt Count 145 L 125 L MPV 9.0 8.8 Immature Gran % (Auto) 0.200 0.000 Neut % (Auto) 77.6 H 74.8 H Lymph % (Auto) 14.6 L 17.4 L [place] % (Auto) 6.9 7.1 Eos % (Auto) 0.5 0.5 Baso % (Auto) 0.2 0.2 Absolute Neuts (auto) 4.4 3.1 Absolute Lymphs (auto) 0.82 L 0.71 L Total Counted Not Reportable Not Reportable Sodium Potassium Chloride Carbon Dioxide Anion Gap BUN Creatinine Estim Creat Clear Calc Est GFR (MDRD) Af Amer Est GFR (MDRD) Non-Af BUN/Creatinine Ratio Glucose Hemoglobin A1c Pending Calcium Assessment/Plan Patient seen and examined independently. Data reviewed. I agree with the above note by the physician nursing assistants teacher. 1. Acute blood loss anemia Secondary to GI bleed hemoglobin has gone from 13.4 to 9 Continue to monitor No need for transfusions at this point Will type and screen but not transfuse at this time. 2. GI bleed Secondary to colonic mass and antiplatelet medications Monitor for now. 3. Colon mass Plan is for surgery on 20 March It will be determined the patient will continue to be hospitalized during the that time or if he can go home and follow-up 4. Coronary artery disease Stent placed in April [address] Fields and he is okay with holding antiplatelet medications in light of GI bleed. 5. DVT prophylaxis with SCDs. Code Visit Inpatient E&M: [id number] [facility] Hosp L3
--- NOTE | 2018-03-15 15:36 | PN_ITS ---
<Chinmay Perea - Last Filed: 03/15/18 15:23> Patient Problems: Active and Suspected Problems (Last Reviewed 03/14/18 @ 14:28 by Yonathan Pozo DO) GI bleed (Acute) Subjective: Pt continued to have bloody stools up to 0800 today. Underwent colonoscopy - apparently had a mass in the colon suspicious for cancer, waiting for official report. Pt agreeable to resection. Asa/plavix will be stopped. No abdominal pain. He complains of bloating post procedure. No nausea/vomiting. No LH/ dizziness/palpitations/CP/SOB. - Physical Exam General: Alert, Oriented x3, Cooperative HEENT: Atraumatic, PERRLA, EOMI, Normocephalic Neck: Supple, No JVD, Negative Carotid Bruits Lungs: Clear to auscultation, Normal air movement Cardiovascular: Regular rate, No murmurs Abdomen: Bowel Sounds Present, Soft, Non Tender Extremities: No edema, Capillary Refill Less than 3 Seconds Skin: No rashes, No breakdown Musculoskeletal: No Tenderness to Palpation of Joints or Extremities Neurological: Cranial nerves II-XII grossly intact Psych/Mental Status: Normal Affect, Appropriate, Alert and oriented to time, place, person, mood and affect Vital Signs Temp Pulse Resp BP Pulse Ox 98.2 F 68 16 114/59 L 96 03/15/18 13:35 03/15/18 13:35 03/15/18 13:35 03/15/18 13:35 03/15/18 13:35 Oxygen Flow Rate (L/min) 6 Oxygen Delivery Method Room Air Weight: 104.4 kg Body Mass Index (BMI) 32.1 Intake and Output for Last 24 Hours 03/13/18 03/14/18 03/15/18 23:59 23:59 23:59 Intake Total 2877 / 2877 1793 / 1793 Output Total 450 / 450 1974 Balance 2427 / 2427 -182 / -182 Laboratory Tests Past 24 Hrs 03/14/18 03/14/18 03/15/18 18:01 21:57 06:00 WBC 5.6 RBC 4.11 L Hgb 12.1 L 10.9 L Hct 36.5 L 32.6 L MCV 88.8 MCH 29.4 MCHC 33.2 RDW 12.6 RDW Differential 40.5 Plt Count 140 L MPV 9.2 Immature Gran % (Auto) 0.200 Neut % (Auto) 75.0 H Lymph % (Auto) 18.4 L [place] % (Auto) 5.3 Eos % (Auto) 0.9 Baso % (Auto) 0.2 Absolute Neuts (auto) 4.2 Absolute Lymphs (auto) 1.03 Total Counted Not Reportable Sodium 143 Potassium 3.9 Chloride 110 H Carbon Dioxide 26.0 Anion Gap 7 BUN 11 Creatinine 1.12 Estim Creat Clear Calc 68.17 Est GFR (MDRD) Af Amer 84 Est GFR (MDRD) Non-Af 70 BUN/Creatinine Ratio 9.8 L Glucose 123 H Calcium 8.1 L 03/15/18 03/15/18 06:00 14:20 WBC 5.6 4.1 L RBC 3.68 L 3.04 L Hgb 10.7 L 9.0 L Hct 32.5 L 26.9 L MCV 88.3 88.5 MCH 29.1 29.6 MCHC 32.9 33.5 RDW 12.7 12.8 RDW Differential 40.6 41.3 Plt Count 145 L 125 L MPV 9.0 8.8 Immature Gran % (Auto) 0.200 0.000 Neut % (Auto) 77.6 H 74.8 H Lymph % (Auto) 14.6 L 17.4 L [place] % (Auto) 6.9 7.1 Eos % (Auto) 0.5 0.5 Baso % (Auto) 0.2 0.2 Absolute Neuts (auto) 4.4 3.1 Absolute Lymphs (auto) 0.82 L 0.71 L Total Counted Not Reportable Not Reportable Sodium Potassium Chloride Carbon Dioxide Anion Gap BUN Creatinine Estim Creat Clear Calc Est GFR (MDRD) Af Amer Est GFR (MDRD) Non-Af BUN/Creatinine Ratio Glucose Calcium Medical Necessity - Tobacco Use Smoking Status: Never smoker Assessment/Plan All Active Problems (Last Reviewed 03/14/18 @ 14:28 by Yonathan Pozo DO) GI bleed (Acute) Chest pain (Acute) NSTEMI (non-ST elevated myocardial infarction) (Acute) 1. Acute blood loss anemia 2/2 lower GI bleed 2/2 colonic mass - Gen surgery following: Cueva/Hanna. Trend Hgb. DC asa/plavix. CT with 2. Vasovagal syncope 2/2 blood loss and bearing down with large bloody BM last night - stable. Maintain on tele. AM lopressor held. 3. CAD s/p drug eluding stent / NSTEMI last April. continue statin, BB tonight if pulse/bp stable, ANETA-I, imdur. 4. HTN - controlled 5. HLD - statin 6. BPH - flomax 7. PUD/GERD - PPI. 8. Hyperglycemia with A1C 6.2% (last april) c/w prediabetes , with obesity - start DM diet when appropriate. Recheck as it has been >3 months (10). Given cardiac hx would benefit from starting oral antidiabetic medication 9. Pancytopenia suspect 2/2 colorectal cancer. DVT ppx: SCDs DC planning: trend Hgb overnight. This patient was seen by Chinmay Perea PA-C under the supervision of Doctor Nohelia. <Yonathan Pozo - Last Filed: 03/15/18 16:29> - Physical Exam General: Alert, Cooperative HEENT: Atraumatic Lungs: Clear to auscultation, Normal air movement, No rhonchi, No wheeze Cardiovascular: Regular rate, Regular Rhythm, Normal S1, Normal S2 Abdomen: Bowel Sounds Present, Soft, Non Tender, Non-Distended, No Hepato- splenomegaly Psych/Mental Status: Normal Affect, Appropriate Vital Signs Temp Pulse Resp BP Pulse Ox 36.8 C 70 16 114/59 L 96 03/15/18 13:35 03/15/18 15:13 03/15/18 13:35 03/15/18 13:35 03/15/18 13:35 Oxygen Flow Rate (L/min) 6 Oxygen Delivery Method Room Air Weight: 104.4 kg Body Mass Index (BMI) 32.1 Intake and Output for Last 24 Hours 03/13/18 03/14/18 03/15/18 23:59 23:59 23:59 Intake Total 2877 / 2877 1793 / 1793 Output Total 450 / 450 1974 / 1974 Balance 2427 / 2427 -182 / -182 Laboratory Tests Past 24 Hrs 03/14/18 03/14/18 03/15/18 18:01 21:57 06:00 WBC 5.6 RBC 4.11 L Hgb 12.1 L 10.9 L Hct 36.5 L 32.6 L MCV 88.8 MCH 29.4 MCHC 33.2 RDW 12.6 RDW Differential 40.5 Plt Count 140 L MPV 9.2 Immature Gran % (Auto) 0.200 Neut % (Auto) 75.0 H Lymph % (Auto) 18.4 L [place] % (Auto) 5.3 Eos % (Auto) 0.9 Baso % (Auto) 0.2 Absolute Neuts (auto) 4.2 Absolute Lymphs (auto) 1.03 Total Counted Not Reportable Sodium 143 Potassium 3.9 Chloride 110 H Carbon Dioxide 26.0 Anion Gap 7 BUN 11 Creatinine 1.12 Estim Creat Clear Calc 68.17 Est GFR (MDRD) Af Amer 84 Est GFR (MDRD) Non-Af 70 BUN/Creatinine Ratio 9.8 L Glucose 123 H Hemoglobin A1c Calcium 8.1 L 03/15/18 03/15/18 03/15/18 06:00 06:00 14:20 WBC 5.6 4.1 L RBC 3.68 L 3.04 L Hgb 10.7 L 9.0 L Hct 32.5 L 26.9 L MCV 88.3 88.5 MCH 29.1 29.6 MCHC 32.9 33.5 RDW 12.7 12.8 RDW Differential 40.6 41.3 Plt Count 145 L 125 L MPV 9.0 8.8 Immature Gran % (Auto) 0.200 0.000 Neut % (Auto) 77.6 H 74.8 H Lymph % (Auto) 14.6 L 17.4 L [place] % (Auto) 6.9 7.1 Eos % (Auto) 0.5 0.5 Baso % (Auto) 0.2 0.2 Absolute Neuts (auto) 4.4 3.1 Absolute Lymphs (auto) 0.82 L 0.71 L Total Counted Not Reportable Not Reportable Sodium Potassium Chloride Carbon Dioxide Anion Gap BUN Creatinine Estim Creat Clear Calc Est GFR (MDRD) Af Amer Est GFR (MDRD) Non-Af BUN/Creatinine Ratio Glucose Hemoglobin A1c Pending Calcium Assessment/Plan Patient seen and examined independently. Data reviewed. I agree with the above note by the physician merchandising assistant. 1. Acute blood loss anemia * Secondary to GI bleed * hemoglobin has gone from 13.4 to 9 * Continue to monitor * No need for transfusions at this point * Will type and screen but not transfuse at this time. 2. GI bleed * Secondary to colonic mass and antiplatelet medications * Monitor for now. 3. Colon mass * Plan is for surgery on 20 March * It will be determined the patient will continue to be hospitalized during the that time or if he can go home and follow-up 4. Coronary artery disease * Stent placed in April 2017 * Discussed with Dr. Fields and he is okay with holding antiplatelet medications in light of GI bleed. 5. DVT prophylaxis with SCDs. Code Visit Inpatient E&M: [id number] Subs Hosp L3
[2018-03-15 16:30] LABS: Hemoglobin A1c 5.9 % (4.2-6.3)
--- NOTE | 2018-03-15 16:50 | PCM.OPRPT ---
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 Colonoscopy with biopsies of mass, clip placed to localize mass, luis ink injected for identification of the mass intraoperatively Description of Surgical Findings:: mild gastritis on EGD with multiple gastric fundic polyps - no bleeding site noted transverse colon mass - actively oozing, no distal lesions noted Type of Anesthesia:: MAC Anesthesiologist: Yonathan Denny Special Medications: luis ink injection at colon mass site Specimen's removed: mucosal biopsy of antrum of stomach. biopsy of transverse colon mass Estimated Blood Loss (mL): < 5 ml Fluids Replaced: see anesthesia note Description of Procedure: After informed consent was given, the patient was brought to the endoscopy suite and placed in the upright sitting position. Appropriate time out protocol was followed. Appropriate cardiac, blood pressure, and pulse oximetry monitoring was placed. After stable vital signs were noted, the patient was given anesthesia by the anesthesiologist. The posterior pharynx was sprayed with lidocaine spray times two and a bite block was placed. The patient was then placed in the left lateral decubitis position. The upper endoscope was lubricated and inserted into the patients mouth and then carefully placed into the patients throat. The patient was asked to swallow and the endoscope was then easily advanced into the patients esophagus. The endoscope was further advanced down into the patients stomach, then past the pylorus, then past the duodenal bulb and then to the second portion of the duodenum. There were no lesions noted in the duodenum. The endoscope was then retracted back into the stomach. A retroflex view of the stomach revealed no evidence of any masses. No ulcers were noted. The patient had multiple benign appearing gastric fundic polyps. There was minimal erythematous mucosa noted of the antrum of the stomach. Mucosal biopsies using cold grasper forceps were taken of the antral mucosal. A biopsy was done of the one of the gastric fundic polyps. The endoscope was retracted into the esophagus, where any insufflated gas in the stomach was aspirated out. The gastroesophageal junction appeared grossly normal. The remainder of the esophagus was normal. The upper endoscope was removed intact. The next procedure performed was the colonoscopy. The colonoscope was lubricated and carefully inserted into the patients anus. It was then advanced into the rectum, then into the sigmoid colon, then into the left descending colon, past the splenic flexure, into the transverse colon where a mass was noted that was probably an adenocarcinoma. It was actively oozing. There was blood noted throughout the colon up to this point. Biopsies were taken using cold grasper forceps of this mass. In anticipation for surgery, the mucosa was injected with luis ink. Also a clip was applied to the area for marking also. The colonoscope could not be advanced pas the hepatic flexure. Given the need for extended right hemicolectomy, no further attempt was made. The colonoscope was retracted back and the mucosa distal to the cancerous lesion was carefully examined. There was retained bloody liquid and clots that required lavage and aspiration to visualize the carmona adequately and this took some time. However, no suspicious lesions were noted distal to the transverse colon mass. Retrograde view of the rectum revealed hemorrhoidal disease. The colonoscopy was removed intact. Patient tolerated procedure well. - Complications none noted
--- NOTE | 2018-03-15 17:02 | OP.PCM_ITS ---
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 Colonoscopy with biopsies of mass, clip placed to localize mass, luis ink injected for identification of the mass intraoperatively Description of Surgical Findings:: mild gastritis on EGD with multiple gastric fundic polyps - no bleeding site noted transverse colon mass - actively oozing, no distal lesions noted Type of Anesthesia:: MAC Anesthesiologist: Yonathan Denny Special Medications: luis ink injection at colon mass site Specimen's removed: mucosal biopsy of antrum of stomach. biopsy of transverse colon mass Estimated Blood Loss (mL): < 5 ml Fluids Replaced: see anesthesia note Description of Procedure: After informed consent was given, the patient was brought to the endoscopy suite and placed in the upright sitting position. Appropriate time out protocol was followed. Appropriate cardiac, blood pressure, and pulse oximetry monitoring was placed. After stable vital signs were noted, the patient was given anesthesia by the anesthesiologist. The posterior pharynx was sprayed with lidocaine spray times two and a bite block was placed. The patient was then placed in the left lateral decubitis position. The upper endoscope was lubricated and inserted into the patient?s mouth and then carefully placed into the patient?s throat. The patient was asked to swallow and the endoscope was then easily advanced into the patient?s esophagus. The endoscope was further advanced down into the patient?s stomach, then past the pylorus, then past the duodenal bulb and then to the second portion of the duodenum. There were no lesions noted in the duodenum. The endoscope was then retracted back into the stomach. A retroflex view of the stomach revealed no evidence of any masses. No ulcers were noted. The patient had multiple benign appearing gastric fundic polyps. There was minimal erythematous mucosa noted of the antrum of the stomach. Mucosal biopsies using cold grasper forceps were taken of the antral mucosal. A biopsy was done of the one of the gastric fundic polyps. The endoscope was retracted into the esophagus, where any insufflated gas in the stomach was aspirated out. The gastroesophageal junction appeared grossly normal. The remainder of the esophagus was normal. The upper endoscope was removed intact. The next procedure performed was the colonoscopy. The colonoscope was lubricated and carefully inserted into the patient?s anus. It was then advanced into the rectum, then into the sigmoid colon, then into the left descending colon, past the splenic flexure, into the transverse colon where a mass was noted that was probably an adenocarcinoma. It was actively oozing. There was blood noted throughout the colon up to this point. Biopsies were taken using cold grasper forceps of this mass. In anticipation for surgery , the mucosa was injected with luis ink. Also a clip was applied to the area for marking also. The colonoscope could not be advanced pas the hepatic flexure. Given the need for extended right hemicolectomy, no further attempt was made. The colonoscope was retracted back and the mucosa distal to the cancerous lesion was carefully examined. There was retained bloody liquid and clots that required lavage and aspiration to visualize the carmona adequately and this took some time. However, no suspicious lesions were noted distal to the transverse colon mass. Retrograde view of the rectum revealed hemorrhoidal disease. The colonoscopy was removed intact. Patient tolerated procedure well. - Complications none noted
--- NOTE | 2018-03-15 17:24 | PCM.CONS.C ---
Problem List (1) Atherosclerotic heart disease of [place] coronary artery without angina pectoris Status: Chronic Qualifiers: [place] vs. transplanted heart: [place] heart Qualified Code(s): I25.10 - Atherosclerotic heart disease of [place] coronary artery without angina pectoris; I25.10 - Atherosclerotic heart disease of [place] coronary artery without angina pectoris; I25.10 - Atherosclerotic heart disease of [place] coronary artery without angina pectoris (2) S/P PTCA (percutaneous transluminal coronary angioplasty) Status: Chronic (3) HLD (hyperlipidemia) Status: Chronic Qualifiers: Hyperlipidemia type: unspecified Qualified Code(s): E78.5 - Hyperlipidemia, unspecified (4) HTN (hypertension) Status: Chronic (5) Anemia Status: Acute (6) GI bleed Status: Acute (7) Colonic mass Status: Acute (8) Preop cardiovascular exam Status: Acute Reason for Consult Date of Consultation: 03/15/18 History of Present Illness: The patient is a 68 year old white male with a past cardiovascular history of an underlying CAD, non-ST segment elevation [place], status post RCA PTCA/stent, hyperlipidemia, hypertension, who is undergoing evaluation for gastrointestinal bleeding thought related to underlying colonic mass concerning for colon carcinoma. Since the patient's last outpatient cardiovascular visit on 08/28/2017 he states overall from a cardiac standpoint he has been doing well. He continues to exercise on his treadmill at 4 mph for approximately 8 miles. He states he feels good doing that. He has had no classic symptoms of angina pectoris at rest or with exertion. There has been no evidence of CHF or pulmonary edema. There has been no near syncope or syncope. He has not undergone additional cardiovascular diagnostic studies or therapeutic intervention. He states that recently, when having a bowel movement, he noted bleeding. He has now been evaluated in the hospital for anemia secondary to gastrointestinal bleeding. He has been found on colonoscopy to have concerns of an underlying colonic mass. According to Dr. Ferreira, via telephone conversation he initiated, he was concerned of underlying colon carcinoma and that the patient would require upcoming general surgery. Thus, based on his cardiovascular disease history, he requested cardiovascular consultation. In the interim the patient's antiplatelet therapy with respect to his aspirin and clopidogrel/Plavix therapy has been placed on hold. He has continued his other cardiovascular medications as his heart rate and blood pressure allow. [] Past Medical History Allergies/Adverse Reactions: Allergies omeprazole [From Prilosec] Adverse Reaction (Verified 03/14/18 08:05) lowers WBCs Home Medications: Ambulatory Orders Medication Instructions Recorded Psyllium [Metamucil] 1 packet PO DAILY 05/13/17 Rabeprazole Sodium [Aciphex] 20 mg PO BID 05/13/17 Tamsulosin HCl [Flomax] 0.4 mg PO QHS 05/13/17 Aspirin E.C. [Ecotrin] 81 mg PO DAILY@0800 #30 tablet 05/16/17 Isosorbide Mononitrate [Imdur] 30 mg PO DAILY #30 tab 05/16/17 Lisinopril [Zestril] 20 mg PO DAILY #30 tab 05/16/17 Metoprolol Tartrate [Lopressor 25 mg PO BID #60 tab 05/16/17 (beta mandeep)] clopidogrel 75 mg tablet 75 mg PO DAILY 08/23/17 atorvastatin 80 mg tablet 80 mg PO QHS 08/24/17 docusate sodium 100 mg capsule 100 mg PO BID 08/25/17 triamcinolone acetonide 55 2 spray INTRANASAL QHS 08/25/17 mcg/actuation nasal spray,aerosol Glucosamine/MSM/Chondroitin A 1 each PO DAILY 03/14/18 [Glucosamine Chondroit MSM Tab] Polyethylene Glycol 3350 [Miralax] 17 gm PO DAILY 03/14/18 Past Medical History (Chronic Problems): Chronic Problems (Last Reviewed 03/14/18 @ 14:28 by Yonathan Pozo DO) S/P PTCA (percutaneous transluminal coronary angioplasty) (Chronic) Hyperlipemia, mixed (Chronic) Essential (primary) hypertension (Chronic) Atherosclerotic heart disease of [place] coronary artery without angina pectoris (Chronic) HTN (hypertension) (Chronic) HLD (hyperlipidemia) (Chronic) Peptic ulcer disease (Chronic) Surgical History: angioplasty, - - kidney stone removal w/stent, rectal surgery, laser eye surgery, right wrist cyst removed. - *Family History Paternal Family History: Family History (Last Reviewed 03/14/18 @ 14:29 by Yonathan Pozo DO) Father CAD (coronary artery disease) Mother CAD (coronary artery disease) History Items: Heart Disease Maternal Family History: Family History (Last Reviewed 03/14/18 @ 14:29 by Yonathan Pozo DO) Father CAD (coronary artery disease) Mother CAD (coronary artery disease) History Items: Heart Disease Lives: Spouse/ Significant Other Smoking Status: Never smoker Alcohol: None Drugs: None Review of Systems - Review of Systems General: Denies: Fever, Night Sweats, Fatigue Cardiovascular: Denies: Chest Discomfort, Shortness of Breath, Orthopnea, PND, Peripheral Edema, Palpitations, Lightheadedness, Dizziness, Near Syncope, Syncope Respiratory: Denies: Cough, Sputum Production, Hemoptysis Gastrointestinal: Reports: Hematochezia. Denies: Hematemesis, Melena Genitourinary: Denies: Dysuria, Hematuria Skin: Denies: Rash Subjectve: This is a 68-year-old white male who appears to be resting comfortably at the moment in no acute distress. Objective: Vital Signs Temp Pulse Resp BP Pulse Ox 98.5 F 77 16 108/55 L 97 03/15/18 17:00 03/15/18 17:00 03/15/18 17:00 03/15/18 17:00 03/15/18 17:00 Oxygen Flow Rate (L/min) 6 Oxygen Delivery Method Room Air Weight: 230 lb 2.601 oz Body Mass Index (BMI) 32.1 Intake and Output for Last 24 Hours 03/13/18 03/14/18 03/15/18 23:59 23:59 23:59 Intake Total 2877 / 2877 1793 / 1793 Output Total 450 / 450 1974 Balance 2427 / 2427 -182 / -182 General: Awake, Alert, Oriented x 3, Cooperative, No Acute Distress HEENT: Atraumatic, Normocephalic, PERRL, EOMI, Sclera Non Icteric Oral: Moist Mucosa Neck: Supple, Good ROM, No JVD Lungs: Clear to auscultation Cardiovascular: Regular Rhythm, Premature Ectopic Beats, Normal S1, Normal S2, Positive S4 Vascular: No Carotid Bruits Abdomen: Bowel Sounds Present, Soft, Non Tender Extremities: No Cyanosis, No Clubbing, No edema Neurological: No Focal Motor or Sensory Deficit Psych/Mental Status: Appropriate, Normal Affect 03/14/18 18:01: WBC 5.6, RBC 4.11 L, Hgb 12.1 L, Hct 36.5 L, MCV 88.8, MCH 29.4, MCHC 33.2, RDW 12.6, RDW Differential 40.5, Plt Count 140 L, MPV 9.2, Immature Gran % (Auto) 0.200, Neut % (Auto) 75.0 H, Lymph % (Auto) 18.4 L, [place] % (Auto) 5.3, Eos % (Auto) 0.9, Baso % (Auto) 0.2, Absolute Neuts (auto) 4.2, Total Counted Not Reportable 03/14/18 21:57: Hgb 10.9 L, Hct 32.6 L 03/15/18 06:00: Sodium 143, Potassium 3.9, Chloride 110 H, Carbon Dioxide 26.0, Anion Gap 7, BUN 11, Creatinine 1.12, Est GFR (MDRD) Af Amer 84, Est GFR (MDRD) Non-Af 70, BUN/Creatinine Ratio 9.8 L, Glucose 123 H, Calcium 8.1 L 03/15/18 06:00: WBC 5.6, RBC 3.68 L, Hgb 10.7 L, Hct 32.5 L, MCV 88.3, MCH 29.1, MCHC 32.9, RDW 12.7, RDW Differential 40.6, Plt Count 145 L, MPV 9.0, Immature Gran % (Auto) 0.200, Neut % (Auto) 77.6 H, Lymph % (Auto) 14.6 L, [place] % (Auto) 6.9, Eos % (Auto) 0.5, Baso % (Auto) 0.2, Absolute Neuts (auto) 4.4, Total Counted Not Reportable 03/15/18 06:00: Hemoglobin A1c 5.9 03/15/18 14:20: WBC 4.1 L, RBC 3.04 L, Hgb 9.0 L, Hct 26.9 L, MCV 88.5, MCH 29.6, MCHC 33.5, RDW 12.8, RDW Differential 41.3, Plt Count 125 L, MPV 8.8, Immature Gran % (Auto) 0.000, Neut % (Auto) 74.8 H, Lymph % (Auto) 17.4 L, [place] % (Auto) 7.1, Eos % (Auto) 0.5, Baso % (Auto) 0.2, Absolute Neuts (auto) 3.1, Total Counted Not Reportable Rhythm: Sinus rhythm; PVCs ECHO: 05/13/2017: Left ventricular regional wall motion abnormalities with overall preserved LVEF of 60%; trivial MR/TR; mild focal aortic valve calcification; unable to estimate RV systolic pressure due to a technically difficult study; decreased diastolic compliance Stress Test: 05/30/2017: Exercise tolerance test: Technically adequate (percent predicted maximal heart rate greater than 85%) exercise tolerance test with a peak ECG demonstrating somatic/motion artifact with beat to beat nonspecific ST segment variability with resolution towards baseline beginning by 1 minute in recovery with subsequent notation of approximately 0.5-1.[address] segment depression in leads I, II, III, aVF, and V4 through V6 during recovery-at approximately 5 minutes into recovery-with gradual resolution towards baseline at approximately 10 minutes into recovery; rare PVC during exercise and recovery Cardiac Cath: 05/15/2017: Left main coronary artery normal; LAD with proximal and mid 25% stenosis; second diagonal branch with proximal long diffuse 85% stenosis-small caliber bifurcating vessel; diagonal branch #3 occluded; LCx with mid 10-25% stenosis; OM 2 with proximal 50-75% stenosis-small caliber vessel; RCA with proximal eccentric 99% stenosis; collateral flow from the left to the right PCI: 05/15/2017: RCA PTCA/JAYLIN Assessment/Plan 1. CAD status post non-ST segment elevation [place]-remote status post RCA PTCA/JAYLIN At the present time he appears to be doing well from a cardiac standpoint with no acute cardiovascular complaints suspicious for his underlying CAD process. Based upon his need for upcoming noncardiovascular surgery he will have additional testing with a 12-lead ECG as well as a transthoracic echocardiogram to evaluate her left ventricular wall motion and systolic function which may provide additional information which may be important with respect to upcoming general anesthesia and noncardiovascular surgery. In the interim he will continue medical management which will include his nitrates, beta-blockers, ANETA inhibitors, lipid-lowering agents. It appears prudent at this time, based upon his continued anemia due to the gastrointestinal bleeding process secondary to the underlying colonic mass that he be without his aspirin therapy and clopidogrel/Plavix therapy. Really he would be without clopidogrel/Plavix therapy for approximately 5 days prior to an upcoming surgical procedure. 2. Hyperlipidemia He will continue lipid-lowering therapy as deemed appropriate. 4. Hypertension His blood pressure will be monitored. His medications may need to be adjusted as deemed appropriate. 5. Anemia secondary to GI bleeding process secondary to colonic mass concerning for colon carcinoma His H&H should be followed. If his H&H declines he may need PRBCs to assist with his oxygen carrying capacity or to his noncardiovascular surgery. 6. Preoperative cardiovascular examination At the present time the patient appears to be without obvious acute cardiovascular symptoms. He does not appear at this time to require additional preoperative cardiovascular evaluation studies, other than those noted above, with respect to exercise tolerance test/imaging study or diagnostic cardiac catheterization, barring some unforeseen change in his clinical status. He should continue on medical management as best as possible in and around the time of his surgical procedure especially with respect to his beta-blockers. He would need close follow-up of his cardiac rate and rhythm and blood pressure during and following his surgical procedure. An attempt should be made to avoid excessive IV volume overload that could bring out CHF/pulmonary edema. Following his surgical procedure be reasonable to restart his aspirin and antiplatelet therapy when able from a surgical standpoint. Comment: The patient's case has been previously discussed with Dr. Ferreira. This note was generated with [employer] software. It may contain incorrect words, spelling, and punctuation that were not noted in checking the note before signing.
--- NOTE | 2018-03-15 17:35 | CON.PCM_ITS ---
Problem List (1) Atherosclerotic heart disease of [place] coronary artery without angina pectoris Status: Chronic Qualifiers: Torres Martinez vs. transplanted heart: [place] heart Qualified Code(s): I25.10 - Atherosclerotic heart disease of [place] coronary artery without angina pectoris ; I25.10 - Atherosclerotic heart disease of [place] coronary artery without angina pectoris; I25.10 - Atherosclerotic heart disease of [place] coronary artery without angina pectoris (2) S/P PTCA (percutaneous transluminal coronary angioplasty) Status: Chronic (3) HLD (hyperlipidemia) Status: Chronic Qualifiers: Hyperlipidemia type: unspecified Qualified Code(s): E78.5 - Hyperlipidemia , unspecified (4) HTN (hypertension) Status: Chronic (5) Anemia Status: Acute (6) GI bleed Status: Acute (7) Colonic mass Status: Acute (8) Preop cardiovascular exam Status: Acute Reason for Consult Date of Consultation: 03/15/18 History of Present Illness: The patient is a 68 year old white male with a past cardiovascular history of an underlying CAD, non-ST segment elevation DE, status post RCA PTCA/stent, hyperlipidemia, hypertension, who is undergoing evaluation for gastrointestinal bleeding thought related to underlying colonic mass concerning for colon carcinoma. Since the patient's last outpatient cardiovascular visit on 2016 he states overall from a cardiac standpoint he has been doing well. He continues to exercise on his treadmill at 4 mph for approximately 8 miles. He states he feels good doing that. He has had no classic symptoms of angina pectoris at rest or with exertion. There has been no evidence of CHF or pulmonary edema. There has been no near syncope or syncope. He has not undergone additional cardiovascular diagnostic studies or therapeutic intervention. He states that recently, when having a bowel movement, he noted bleeding. He has now been evaluated in the hospital for anemia secondary to gastrointestinal bleeding. He has been found on colonoscopy to have concerns of an underlying colonic mass. According to Dr. Ferreira, via telephone conversation he initiated , he was concerned of underlying colon carcinoma and that the patient would require upcoming general surgery. Thus, based on his cardiovascular disease history, he requested cardiovascular consultation. In the interim the patient's antiplatelet therapy with respect to his aspirin and clopidogrel/Plavix therapy has been placed on hold. He has continued his other cardiovascular medications as his heart rate and blood pressure allow. [] Past Medical History Allergies/Adverse Reactions: Allergies omeprazole [From Prilosec] Adverse Reaction (Verified 03/14/18 08:05) lowers WBCs Home Medications: Ambulatory Orders Medication Instructions Recorded Psyllium [Metamucil] 1 packet PO DAILY 05/13/17 Rabeprazole Sodium [Aciphex] 20 mg PO BID 05/13/17 Tamsulosin HCl [Flomax] 0.4 mg PO QHS 05/13/17 Aspirin E.C. [Ecotrin] 81 mg PO DAILY@0800 #30 tablet 05/16/17 Isosorbide Mononitrate [Imdur] 30 mg PO DAILY #30 tab 05/16/17 Lisinopril [Zestril] 20 mg PO DAILY #30 tab 05/16/17 Metoprolol Tartrate [Lopressor 25 mg PO BID #60 tab 05/16/17 (beta mandeep)] clopidogrel 75 mg tablet 75 mg PO DAILY 08/23/17 atorvastatin 80 mg tablet 80 mg PO QHS 08/24/17 docusate sodium 100 mg capsule 100 mg PO BID 08/25/17 triamcinolone acetonide 55 2 spray INTRANASAL QHS 08/25/17 mcg/actuation nasal spray,aerosol Glucosamine/MSM/Chondroitin A 1 each PO DAILY 03/14/18 [Glucosamine Chondroit MSM Tab] Polyethylene Glycol 3350 [Miralax] 17 gm PO DAILY 03/14/18 Past Medical History (Chronic Problems): Chronic Problems (Last Reviewed 03/14/18 @ 14:28 by Yonathan Pozo DO) S/P PTCA (percutaneous transluminal coronary angioplasty) (Chronic) Hyperlipemia, mixed (Chronic) Essential (primary) hypertension (Chronic) Atherosclerotic heart disease of [place] coronary artery without angina pectoris (Chronic) HTN (hypertension) (Chronic) HLD (hyperlipidemia) (Chronic) Peptic ulcer disease (Chronic) Surgical History: angioplasty, - - kidney stone removal w/stent, rectal surgery , laser eye surgery, right wrist cyst removed. - *Family History Paternal Family History: Family History (Last Reviewed 03/14/18 @ 14:29 by Yonathan Pozo DO) Father CAD (coronary artery disease) Mother CAD (coronary artery disease) History Items: Heart Disease Maternal Family History: Family History (Last Reviewed 03/14/18 @ 14:29 by Yonathan Pozo DO) Father CAD (coronary artery disease) Mother CAD (coronary artery disease) History Items: Heart Disease Lives: Spouse/ Significant Other Smoking Status: Never smoker Alcohol: None Drugs: None Review of Systems - Review of Systems General: Denies: Fever, Night Sweats, Fatigue Cardiovascular: Denies: Chest Discomfort, Shortness of Breath, Orthopnea, PND, Peripheral Edema, Palpitations, Lightheadedness, Dizziness, Near Syncope, Syncope Respiratory: Denies: Cough, Sputum Production, Hemoptysis Gastrointestinal: Reports: Hematochezia. Denies: Hematemesis, Melena Genitourinary: Denies: Dysuria, Hematuria Skin: Denies: Rash Subjectve: This is a 68-year-old white male who appears to be resting comfortably at the moment in no acute distress. Objective: Vital Signs Temp Pulse Resp BP Pulse Ox 98.5 F 77 16 108/55 L 97 03/15/18 17:00 03/15/18 17:00 03/15/18 17:00 03/15/18 17:00 03/15/18 17:00 Oxygen Flow Rate (L/min) 6 Oxygen Delivery Method Room Air Weight: 230 lb 2.601 oz Body Mass Index (BMI) 32.1 Intake and Output for Last 24 Hours 03/13/18 03/14/18 03/15/18 23:59 23:59 23:59 Intake Total 2877 / 2877 1793 / 1793 Output Total 450 / 450 1974 Balance 2427 / 2427 -182 / -182 General: Awake, Alert, Oriented x 3, Cooperative, No Acute Distress HEENT: Atraumatic, Normocephalic, PERRL, EOMI, Sclera Non Icteric Oral: Moist Mucosa Neck: Supple, Good ROM, No JVD Lungs: Clear to auscultation Cardiovascular: Regular Rhythm, Premature Ectopic Beats, Normal S1, Normal S2, Positive S4 Vascular: No Carotid Bruits Abdomen: Bowel Sounds Present, Soft, Non Tender Extremities: No Cyanosis, No Clubbing, No edema Neurological: No Focal Motor or Sensory Deficit Psych/Mental Status: Appropriate, Normal Affect 03/14/18 18:01: WBC 5.6, RBC 4.11 L, Hgb 12.1 L, Hct 36.5 L, MCV 88.8, MCH 29.4 , MCHC 33.2, RDW 12.6, RDW Differential 40.5, Plt Count 140 L, MPV 9.2, Immature Gran % (Auto) 0.200, Neut % (Auto) 75.0 H, Lymph % (Auto) 18.4 L, [place] % (Auto) 5.3, Eos % (Auto) 0.9, Baso % (Auto) 0.2, Absolute Neuts (auto) 4.2, Total Counted Not Reportable 03/14/18 21:57: Hgb 10.9 L, Hct 32.6 L 03/15/18 06:00: Sodium 143, Potassium 3.9, Chloride 110 H, Carbon Dioxide 26.0, Anion Gap 7, BUN 11, Creatinine 1.12, Est GFR (MDRD) Af Amer 84, Est GFR (MDRD) Non-Af 70, BUN/Creatinine Ratio 9.8 L, Glucose 123 H, Calcium 8.1 L 03/15/18 06:00: WBC 5.6, RBC 3.68 L, Hgb 10.7 L, Hct 32.5 L, MCV 88.3, MCH 29.1 , MCHC 32.9, RDW 12.7, RDW Differential 40.6, Plt Count 145 L, MPV 9.0, Immature Gran % (Auto) 0.200, Neut % (Auto) 77.6 H, Lymph % (Auto) 14.6 L, [place] % (Auto) 6.9, Eos % (Auto) 0.5, Baso % (Auto) 0.2, Absolute Neuts (auto) 4.4, Total Counted Not Reportable 03/15/18 06:00: Hemoglobin A1c 5.9 03/15/18 14:20: WBC 4.1 L, RBC 3.04 L, Hgb 9.0 L, Hct 26.9 L, MCV 88.5, MCH 29.6 , MCHC 33.5, RDW 12.8, RDW Differential 41.3, Plt Count 125 L, MPV 8.8, Immature Gran % (Auto) 0.000, Neut % (Auto) 74.8 H, Lymph % (Auto) 17.4 L, [place] % (Auto) 7.1, Eos % (Auto) 0.5, Baso % (Auto) 0.2, Absolute Neuts (auto) 3.1, Total Counted Not Reportable Rhythm: Sinus rhythm; PVCs ECHO: 05/13/2017: Left ventricular regional wall motion abnormalities with overall preserved LVEF of 60%; trivial MR/TR; mild focal aortic valve calcification; unable to estimate RV systolic pressure due to a technically difficult study; decreased diastolic compliance Stress Test: 05/30/2017: Exercise tolerance test: Technically adequate (percent predicted maximal heart rate greater than 85%) exercise tolerance test with a peak ECG demonstrating somatic/motion artifact with beat to beat nonspecific ST segment variability with resolution towards baseline beginning by 1 minute in recovery with subsequent notation of approximately 0.5-1.[address] segment depression in leads I, II, III, aVF, and V4 through V6 during recovery- at approximately 5 minutes into recovery-with gradual resolution towards baseline at approximately 10 minutes into recovery; rare PVC during exercise and recovery Cardiac Cath: 05/15/2017: Left main coronary artery normal; LAD with proximal and mid 25% stenosis; second diagonal branch with proximal long diffuse 85% stenosis-small caliber bifurcating vessel; diagonal branch #3 occluded; LCx with mid 10-25% stenosis; OM 2 with proximal 50-75% stenosis-small caliber vessel; RCA with proximal eccentric 99% stenosis; collateral flow from the left to the right PCI: 05/15/2017: RCA PTCA/JAYLIN Assessment/Plan 1. CAD status post non-ST segment elevation DE-remote status post RCA PTCA/JAYLIN At the present time he appears to be doing well from a cardiac standpoint with no acute cardiovascular complaints suspicious for his underlying CAD process. Based upon his need for upcoming noncardiovascular surgery he will have additional testing with a 12-lead ECG as well as a transthoracic echocardiogram to evaluate her left ventricular wall motion and systolic function which may provide additional information which may be important with respect to upcoming general anesthesia and noncardiovascular surgery. In the interim he will continue medical management which will include his nitrates, beta-blockers, ANETA inhibitors, lipid-lowering agents. It appears prudent at this time, based upon his continued anemia due to the gastrointestinal bleeding process secondary to the underlying colonic mass that he be without his aspirin therapy and clopidogrel/Plavix therapy. Really he would be without clopidogrel/Plavix therapy for approximately 5 days prior to an upcoming surgical procedure. 2. Hyperlipidemia He will continue lipid-lowering therapy as deemed appropriate. 4. Hypertension His blood pressure will be monitored. His medications may need to be adjusted as deemed appropriate. 5. Anemia secondary to GI bleeding process secondary to colonic mass concerning for colon carcinoma His H&H should be followed. If his H&H declines he may need PRBCs to assist with his oxygen carrying capacity or to his noncardiovascular surgery. 6. Preoperative cardiovascular examination At the present time the patient appears to be without obvious acute cardiovascular symptoms. He does not appear at this time to require additional preoperative cardiovascular evaluation studies, other than those noted above, with respect to exercise tolerance test/imaging study or diagnostic cardiac catheterization, barring some unforeseen change in his clinical status. He should continue on medical management as best as possible in and around the time of his surgical procedure especially with respect to his beta-blockers. He would need close follow-up of his cardiac rate and rhythm and blood pressure during and following his surgical procedure. An attempt should be made to avoid excessive IV volume overload that could bring out CHF/pulmonary edema. Following his surgical procedure be reasonable to restart his aspirin and antiplatelet therapy when able from a surgical standpoint. Comment: The patient's case has been previously discussed with Dr. Ferreira. This note was generated with [employer] software. It may contain incorrect words, spelling, and punctuation that were not noted in checking the note before signing.
[2018-03-15] MEDS: Fluticasone 0.05% 1 SPRAY NASAL.SRY 2 SPRAY NASAL (21:32)
[2018-03-15] MEDS: Atorvastatin Calcium 80 MG Tablet PO (21:34)
[2018-03-16] VITALS (14 sets, daily range): BP systolic 105–137; BP diastolic 57–76; PULSE 51–100; RESP 14–16; TEMP 36.5–37.1; O2SAT 96–100
--- NOTE | 2018-03-16 05:55 | ECHOD_ITS ---
Reason For Study: CAD/ASHD Procedure This was a 2D Doppler, Color Flow transthoracic echocardiogram. The exam was of fair technical quality due to diminished acoustic windows. The study was technically difficult. Exam performed portable in patient room. Left Ventricle Normal LV size. Mild concentric left ventricular hypertrophy. Segmental dysfunction with preserved ejection fraction (see wall motion). The estimated ejection fraction is 65 %. Infero-Basal: Hypokinetic. Right Ventricle Normal RV size. Normal systolic function. Atria Normal left atrium. Normal right atrium. No doppler evidence for ASD. Mitral Valve There is no mitral annular calcification. Normal mitral valve. Trivial mitral valve insufficiency. Tricuspid Valve Normal tricuspid valve. Mild tricuspid valve insufficiency. Unable to estimate RV systolic pressure/pulmonary artery pressure due to technically difficult study. Aortic Valve Trisinus/trileaflet aortic valve. Moderate focal aortic valve calcification. Pulmonic Valve The pulmonic valve is not well visualized. Great Vessels Normal sized aortic root. Pericardium/Pleural No pericardial effusion. MMode/2D Measurements & Calculations LVIDd: 5.0 cm IVSd: 1.4 cm LVOT diam: 2.1 cm LVIDs: 3.0 cm LVPWd: 1.4 cm LVOT area: 3.5 cm2 RVDd: 3.8 cm FS: 40.5 % Ao root diam: 2.9 cm LAV(MOD-bp): 54.5 ml RVOT diam: 2.6 cm LAV(MOD-bp) Indexed: 24.4 ml/m2 LAV(MOD-sp2): 57.9 ml LAV(MOD-sp4): 50.4 ml EDV(MOD-sp4): 122.0 ml SV(MOD-sp4): 74.9 ml LA A4 area: 19.0 cm2 ESV(MOD-sp4): 47.0 ml EF(MOD-sp4): 61.4 % RA A4 area: 12.5 cm2 Doppler Measurements & Calculations MV E max josé miguel: 118.6 cm/sec Lat Peak E' José Miguel: 8.3 cm/sec Med Peak E' José Miguel: 8.9 cm/sec MV A max josé miguel: 89.5 cm/sec E/E' lat: 14.4 E/E' med: 13.3 MV E/A: 1.3 Ao V2 max: 283.4 cm/sec LV V1 max: 158.1 cm/sec SV(LVOT): 115.1 ml Ao max P.1 mmHg LV V1 max P.0 mmHg Ao V2 mean: 193.6 cm/sec LV V1 mean P.4 mmHg Ao mean P.9 mmHg LV V1 mean: 120.1 cm/sec Ao V2 VTI: 49.1 cm LV V1 VTI: 32.8 cm ANGELES(I,D): 2.3 cm2 ANGELES(V,D): 2.0 cm2 PA V2 max: 252.1 cm/sec SV(RVOT): 123.4 ml Qp/Qs: 1.1/1.0 PA max PG (full): 22.1 mmHg PA V2 mean: 169.7 cm/sec PA mean PG (full): 10.7 mmHg PA V2 VTI: 48.7 cm Interpretation Summary The study was technically difficult. Segmental dysfunction with preserved ejection fraction (see wall motion). The estimated ejection fraction is 65 %. Mild concentric left ventricular hypertrophy. Trivial mitral valve insufficiency. Mild tricuspid valve insufficiency. Moderate focal aortic valve calcification. Unable to estimate RV systolic pressure/pulmonary artery pressure due to technically difficult study. Transmitral diastolic flow velocities suggest diastolic dysfunction (pseudonormal pattern). Ordering Physician: Esteban Grigsby Referring Physician: Xavier El Performed By: Gia Will, CHRIS, RVT
--- NOTE | 2018-03-16 05:55 | EKG12_ITS ---
Test Reason : AM EKG Blood Pressure : / mmHG Vent. Rate : 069 BPM Atrial Rate : 069 BPM P-R Int : 164 ms QRS Dur : 102 ms QT Int : 404 ms P-R-T Axes : 059 031 008 degrees QTc Int : 432 ms Normal sinus rhythm Normal ECG When compared with ECG of 05-JUN-2017 04:26, Premature ventricular complexes are no longer Present Confirmed by JAJA LUKE, CHRISTIAN ([id number]), editor producer ALMA DELIA MORA ([id number]) on 03/19/2018 3:16:52 PM Referred By: ROBERTH Confirmed By:CHRISTIAN WILKINSON MD
[2018-03-16 06:16] LABS: Absolute Lymphocyte Count 0.73 X10^3/ul (0.83-4.51); Absolute Neutrophil Count 4.8 X10^3/uL (2.0-7.7); Basophil# 0.02 X10^3/uL; Basophil% 0.3 % (0-1); Eosinophil# 0.02 X10^3/uL; Eosinophils% 0.3 % (0-5); Hematocrit 26.4 % (40-54); Hemoglobin 8.5 g/dl (13.0-16.5); Lymphocyte # 0.73 X10^3/ul (4.0); Lymphocyte % 11.4 % (19-41); Mean Corp Hgb Conc 32.2 g/gl (32-36); Mean Corpuscular Hgb 29.4 pg (27.0-32.0); Mean Corpuscular Volume 91.3 fL (80-94); Mean Platelet Vol. 9.4 fl (6.2-12.0); Monocyte# 0.83 X10^3/uL; Monocyte% 12.9 % (0-10); Neutrophil # 4.81 X10^3/uL (2.7-7.7); Neutrophil % 75.1 % (47-70); Platelet Count 123 K/mm3 (150-450); RBC Distribution Width CV 12.6 % (11.6-14.6); RBC Distribution Width SD 40.4 fl (35.1-43.9); Red Blood Count 2.89 M/mm3 (4.6-6.2); White Blood Count 6.4 K/mm3 (4.4-11.0)
[2018-03-16 06:18] LABS: POSITIVE COUNT NO; POSITIVE DIFFERENTIAL NO; POSITIVE MORPHOLOGY NO
--- NOTE | 2018-03-16 06:41 | RAD_ITS ---
STUDY: X-RAY - ABDOMEN/PELVIS REASON FOR EXAM: Male, 68 years old. Abdominal distention. GI bleed. History of a carcinoma of the transverse colon. TECHNIQUE: AP supine and upright views of the abdomen and pelvis. COMPARISON: None. FINDINGS: Normal visualized lung bases. Gas is seen throughout small bowel loops and colon. Small bowel loops are markedly dilated. This is suggestive of an ileus pattern. There is no demonstrated free abdominal air. The visualized liver, spleen and kidneys are grossly normal in size and morphology. There are calcified phleboliths in the pelvis. Normal visualized osseous structures. RAD/Abdomen Single View IMPRESSION: Findings suggestive of an ileus gas pattern. Electronically Signed: Dylan Abdalla MD at 8:39 EDT Tel [phone], Service support ,
[2018-03-16] MEDS: Lisinopril 20 MG Tablet PO (09:09)
[2018-03-16] MEDS: Isosorbide Mononitrate 30 MG Tablet PO (09:09)
[2018-03-16] MEDS: Tamsulosin HCl 0.4 MG Capsule PO (09:09)
[2018-03-16] MEDS: Pantoprazole Sodium 20 MG Tablet PO ×2 (09:09→21:13)
--- NOTE | 2018-03-16 10:11 | CASEMGMT ---
SINCERE met with patient and his . Introduced self and role at [facility]. SW offered support for recent diagnosis. Both patient and his state they are doing okay. Patient said he is saved man so does not scare him. They said it sounds like surgery is all he will need for now. They thanked SINCERE for stopping in to check on them. Rossana ALAN MSW
[2018-03-16] MEDS: Metoprolol Tartrate 25 MG Tablet PO ×2 (11:06→23:59)
[2018-03-16] MEDS: Aspirin 81 MG TAB.CHEW PO (11:07)
[2018-03-16] MEDS: 0.9% Normal Saline 1,000 ML 75 ML IV (13:31)
[2018-03-16] MEDS: 0.9% NaCl Peripheral Flush Adult/Peds IV (13:31)
--- NOTE | 2018-03-16 13:39 | PCM.PN.HOSP ---
Patient Problems: Active and Suspected Problems (Last Reviewed 03/14/18 @ 14:28 by Yonathan Pozo DO) GI bleed (Acute) Anemia (Acute) Colonic mass (Acute) Preop cardiovascular exam (Acute) Subjective: Still with some blood in stool but improved from previous Vitals/I&O's: Vital Signs Temp Pulse Resp BP Pulse Ox 37.1 C 82 16 137/76 H 99 03/16/18 09:00 03/16/18 11:11 03/16/18 09:00 03/16/18 11:06 03/16/18 09:00 Oxygen Flow Rate (L/min) 6 Oxygen Delivery Method Room Air Weight: 104.4 kg Body Mass Index (BMI) 32.1 Intake and Output for Last 24 Hours 03/14/18 03/15/18 03/16/18 23:59 23:59 23:59 Intake Total 2877 / 2877 3668 / 3668 1101 / 1101 Output Total 450 / 450 1974 1050 / 1050 Balance 2427 / 2427 1693 / 1693 51 / 51 General: Alert, Cooperative, No apparent distress HEENT: Atraumatic, Normocephalic Neck: No Nodes, Thyroid Normal Size and Texture Lungs: Clear to auscultation, Normal air movement, No rhonchi, No wheeze Cardiovascular: Regular rate, Regular Rhythm, Normal S1, Normal S2, No murmurs Abdomen: Bowel Sounds Present, Soft, Non Tender, Non-Distended, No Hepato-splenomegaly Extremities: No edema, No Calf Tenderness Laboratory Results 03/15/18 06:00: Hemoglobin A1c 5.9 03/15/18 14:20: WBC 4.1 L, RBC 3.04 L, Hgb 9.0 L, Hct 26.9 L, MCV 88.5, MCH 29.6, MCHC 33.5, RDW 12.8, RDW Differential 41.3, Plt Count 125 L, MPV 8.8, Immature Gran % (Auto) 0.000, Neut % (Auto) 74.8 H, Lymph % (Auto) 17.4 L, [place] % (Auto) 7.1, Eos % (Auto) 0.5, Baso % (Auto) 0.2, Absolute Neuts (auto) 3.1, Absolute Lymphs (auto) 0.71 L, Total Counted Not Reportable 03/15/18 16:45: Blood Type O POSITIVE, Antibody Screen NEGATIVE 03/16/18 05:25: WBC 6.4, RBC 2.89 L, Hgb 8.5 L, Hct 26.4 L, MCV 91.3, MCH 29.4, MCHC 32.2, RDW 12.6, RDW Differential 40.4, Plt Count 123 L, MPV 9.4, Immature Gran % (Auto) 0.000, Neut % (Auto) 75.1 H, Lymph % (Auto) 11.4 L, [place] % (Auto) 12.9 H, Eos % (Auto) 0.3, Baso % (Auto) 0.3, Absolute Neuts (auto) 4.8, Absolute Lymphs (auto) 0.73 L, Total Counted Not Reportable Current Medications Aspirin (Aspirin, Baby) 81 mg PO DAILY@0800 [facility] Last Admin: 03/16/18 11:07 Dose: 81 mg Atorvastatin Calcium (Lipitor) 80 mg PO HS [facility] Last Admin: 03/15/18 21:34 Dose: 80 mg Fluticasone Propionate (Flonase Nasal [place]) 2 spray NASAL HS [facility] Last Admin: 03/15/18 21:32 Dose: 2 spray Sodium Chloride () 1,000 mls @ 75 mls/hr IV .[id number] [facility] Last Admin: 03/16/18 13:31 Dose: 75 mls/hr Isosorbide Mononitrate (Imdur) 30 mg PO DAILY [facility] Last Admin: 03/16/18 09:09 Dose: 30 mg Lisinopril (Zestril) 20 mg PO DAILY [facility] Last Admin: 03/16/18 09:09 Dose: 20 mg Magnesium Hydroxide (Milk Of Magnesia) 30 ml PO DAILY PRN PRN Reason: Constipation Metoprolol Tartrate (Lopressor (Beta Geraldine)) 25 mg PO BID [facility] Last Admin: 03/16/18 11:06 Dose: 25 mg Ondansetron HCl (Zofran) 4 mg IV Q8H PRN PRN PRN Reason: NAUSEA Last Admin: 03/14/18 21:43 Dose: 4 mg Pantoprazole Sodium (Protonix) 20 mg PO BID [facility] Last Admin: 03/16/18 09:09 Dose: 20 mg Sodium Chloride () 5 - 30 ml IV UD PRN PRN Reason: SALINE FLUSH Last Admin: 03/16/18 13:31 Dose: 5 ml Tamsulosin HCl (Flomax) 0.4 mg PO DAILY [facility] Last Admin: 03/16/18 09:09 Dose: 0.4 mg Medical Necessity - Tobacco Use Smoking Status: Never smoker Assessment/Plan All Active Problems (Last Reviewed 03/14/18 @ 14:28 by Yonathan Pozo DO) GI bleed (Acute) Anemia (Acute) Colonic mass (Acute) Preop cardiovascular exam (Acute) Chest pain (Acute) NSTEMI (non-ST elevated myocardial infarction) (Acute) 1. Acute blood loss anemia Secondary to GI bleed hemoglobin has gone from 13.4 to 8.5 Continue to monitor No need for transfusions at this point Will type and screen but not transfuse at this time. 2. GI bleed Secondary to colonic mass and antiplatelet medications Monitor for now. Still with some blood. 3. Colon mass Plan is for surgery on 20 March It will be determined the patient will continue to be hospitalized during the that time or if he can go home and follow-up 4. Coronary artery disease Stent placed in April [address] Fields and he is okay with holding antiplatelet medications in light of GI bleed. 5. DVT prophylaxis with SCDs. Code Visit Inpatient E&M: 28878 Subs Hosp L2
--- NOTE | 2018-03-16 14:47 | PCM.PN.SRG ---
Patient Problems: Active and Suspected Problems (Last Reviewed 03/14/18 @ 14:28 by Yonathan Pozo DO) GI bleed (Acute) Anemia (Acute) Colonic mass (Acute) Preop cardiovascular exam (Acute) Subjective: looser stools partially blooning - Physical Exam General: Alert, Oriented x3, Cooperative Vital Signs Temp Pulse Resp BP Pulse Ox 98.8 F 82 16 137/76 H 99 03/16/18 09:00 03/16/18 11:11 03/16/18 09:00 03/16/18 11:06 03/16/18 09:00 Oxygen Flow Rate (L/min) 6 Oxygen Delivery Method Room Air Weight: 104.4 kg Body Mass Index (BMI) 32.1 Intake and Output for Last 24 Hours 03/14/18 03/15/18 03/16/18 23:59 23:59 23:59 Intake Total 2877 / 2877 3668 / 3668 1101 / 1101 Output Total 450 / 450 1974 / 1974 1050 / 1050 Balance 2427 / 2427 1693 / 1693 51 / 51 Laboratory Tests Past 24 Hrs 03/15/18 03/15/18 03/15/18 06:00 14:20 16:45 WBC 4.1 L RBC 3.04 L Hgb 9.0 L Hct 26.9 L MCV 88.5 MCH 29.6 MCHC 33.5 RDW 12.8 RDW Differential 41.3 Plt Count 125 L MPV 8.8 Immature Gran % (Auto) 0.000 Neut % (Auto) 74.8 H Lymph % (Auto) 17.4 L [place] % (Auto) 7.1 Eos % (Auto) 0.5 Baso % (Auto) 0.2 Absolute Neuts (auto) 3.1 Absolute Lymphs (auto) 0.71 L Total Counted Not Reportable Hemoglobin A1c 5.9 Blood Type O POSITIVE Antibody Screen NEGATIVE 03/16/18 05:25 WBC 6.4 RBC 2.89 L Hgb 8.5 L Hct 26.4 L MCV 91.3 MCH 29.4 MCHC 32.2 RDW 12.6 RDW Differential 40.4 Plt Count 123 L MPV 9.4 Immature Gran % (Auto) 0.000 Neut % (Auto) 75.1 H Lymph % (Auto) 11.4 L [place] % (Auto) 12.9 H Eos % (Auto) 0.3 Baso % (Auto) 0.3 Absolute Neuts (auto) 4.8 Absolute Lymphs (auto) 0.73 L Total Counted Not Reportable Hemoglobin A1c Blood Type Antibody Screen Medical Necessity - Tobacco Use Smoking Status: Never smoker Assessment/Plan All Active Problems (Last Reviewed 03/14/18 @ 14:28 by Yonathan Pozo DO) GI bleed (Acute) Anemia (Acute) Colonic mass (Acute) Preop cardiovascular exam (Acute) Chest pain (Acute) NSTEMI (non-ST elevated myocardial infarction) (Acute)
--- NOTE | 2018-03-16 17:06 | PCM.PN.CARD ---
Subjectve: The patient is awake and alert. He has been up and ambulating. He has no new acute cardiovascular complaints or concerns. Objective: Vital Signs Temp Pulse Resp BP Pulse Ox 97.7 F L 60 16 128/69 H 100 03/16/18 15:00 03/16/18 15:37 03/16/18 15:00 03/16/18 15:00 03/16/18 15:00 Oxygen Flow Rate (L/min) 6 Oxygen Delivery Method Room Air Weight: 230 lb 2.601 oz Body Mass Index (BMI) 32.1 Intake and Output for Last 24 Hours 03/14/18 03/15/18 03/16/18 23:59 23:59 23:59 Intake Total 2877 / 2877 3668 / 3668 1101 / 1101 Output Total 450 / 450 1974 1050 / 1050 Balance 2427 / 2427 1693 / 1693 51 / 51 General: Awake, Alert, Oriented x 3, Cooperative Neck: No JVD Lungs: Clear to auscultation Cardiovascular: Regular Rhythm, Normal S1, Normal S2 Abdomen: Bowel Sounds Present, Soft, Non Tender Extremities: No edema 03/16/18 05:25: WBC 6.4, RBC 2.89 L, Hgb 8.5 L, Hct 26.4 L, MCV 91.3, MCH 29.4, MCHC 32.2, RDW 12.6, RDW Differential 40.4, Plt Count 123 L, MPV 9.4, Immature Gran % (Auto) 0.000, Neut % (Auto) 75.1 H, Lymph % (Auto) 11.4 L, [place] % (Auto) 12.9 H, Eos % (Auto) 0.3, Baso % (Auto) 0.3, Absolute Neuts (auto) 4.8, Total Counted Not Reportable Rhythm: Sinus rhythm EKG: Normal sinus rhythm; no acute ECG changes ECHO: Overall preserved LV systolic function/LVEF: Please see official report Medical Necessity - Tobacco Use Smoking Status: Never smoker Assessment/Plan 1. CAD status post non-ST segment elevation [place]-remote status post RCA PTCA/JAYLIN At the present time he appears to be doing well from a cardiac standpoint with no acute cardiovascular complaints suspicious for his underlying CAD process. He appears to be symptomatically and hemodynamically stable at this time. His noninvasive studies have been reviewed. He will continue medical management which will include his nitrates, beta-blockers, ANETA inhibitors, lipid-lowering agents. His case has been previously discussed with Dr. Ferreira. He feels the patient may remain on his aspirin therapy. His clopidogrel/Plavix therapy is on hold. 2. Hyperlipidemia He will continue lipid-lowering therapy as deemed appropriate. 4. Hypertension His blood pressure will be monitored. His medications may need to be adjusted as deemed appropriate. 5. Anemia secondary to GI bleeding process secondary to colonic mass concerning for colon carcinoma His H&H should be followed. If his H&H declines he may need PRBCs to assist with his oxygen carrying capacity or to his noncardiovascular surgery. 6. Preoperative cardiovascular examination At the present time the patient appears to be without obvious acute cardiovascular symptoms. He does not appear at this time to require additional preoperative cardiovascular evaluation studies, other than those noted above, with respect to exercise tolerance test/imaging study or diagnostic cardiac catheterization, barring some unforeseen change in his clinical status. He should continue on medical management as best as possible in and around the time of his surgical procedure especially with respect to his beta-blockers. He would need close follow-up of his cardiac rate and rhythm and blood pressure during and following his surgical procedure. An attempt should be made to avoid excessive IV volume overload that could bring out CHF/pulmonary edema. Following his surgical procedure be reasonable to restart his antiplatelet therapy when able from a surgical standpoint. Comment: The patient's case has been previously discussed with Dr. Ferreira. This note was generated with [employer] software. It may contain incorrect words, spelling, and punctuation that were not noted in checking the note before signing.
--- NOTE | 2018-03-16 17:10 | PN.CARD_ITS ---
Subjectve: The patient is awake and alert. He has been up and ambulating. He has no new acute cardiovascular complaints or concerns. Objective: Vital Signs Temp Pulse Resp BP Pulse Ox 97.7 F L 60 16 128/69 H 100 03/16/18 15:00 03/16/18 15:37 03/16/18 15:00 03/16/18 15:00 03/16/18 15:00 Oxygen Flow Rate (L/min) 6 Oxygen Delivery Method Room Air Weight: 230 lb 2.601 oz Body Mass Index (BMI) 32.1 Intake and Output for Last 24 Hours 03/14/18 03/15/18 03/16/18 23:59 23:59 23:59 Intake Total 2877 / 2877 3668 / 3668 1101 / 1101 Output Total 450 / 450 1974 1050 / 1050 Balance 2427 / 2427 1693 / 1693 51 / 51 General: Awake, Alert, Oriented x 3, Cooperative Neck: No JVD Lungs: Clear to auscultation Cardiovascular: Regular Rhythm, Normal S1, Normal S2 Abdomen: Bowel Sounds Present, Soft, Non Tender Extremities: No edema 03/16/18 05:25: WBC 6.4, RBC 2.89 L, Hgb 8.5 L, Hct 26.4 L, MCV 91.3, MCH 29.4, MCHC 32.2, RDW 12.6, RDW Differential 40.4, Plt Count 123 L, MPV 9.4, Immature Gran % (Auto) 0.000, Neut % (Auto) 75.1 H, Lymph % (Auto) 11.4 L, [place] % (Auto) 12.9 H, Eos % (Auto) 0.3, Baso % (Auto) 0.3, Absolute Neuts (auto) 4.8, Total Counted Not Reportable Rhythm: Sinus rhythm EKG: Normal sinus rhythm; no acute ECG changes ECHO: Overall preserved LV systolic function/LVEF: Please see official report Medical Necessity - Tobacco Use Smoking Status: Never smoker Assessment/Plan 1. CAD status post non-ST segment elevation [place]-remote status post RCA PTCA/JAYLIN At the present time he appears to be doing well from a cardiac standpoint with no acute cardiovascular complaints suspicious for his underlying CAD process. He appears to be symptomatically and hemodynamically stable at this time. His noninvasive studies have been reviewed. He will continue medical management which will include his nitrates, beta- blockers, ANETA inhibitors, lipid-lowering agents. His case has been previously discussed with Dr. Ferreira. He feels the patient may remain on his aspirin therapy. His clopidogrel/Plavix therapy is on hold. 2. Hyperlipidemia He will continue lipid-lowering therapy as deemed appropriate. 4. Hypertension His blood pressure will be monitored. His medications may need to be adjusted as deemed appropriate. 5. Anemia secondary to GI bleeding process secondary to colonic mass concerning for colon carcinoma His H&H should be followed. If his H&H declines he may need PRBCs to assist with his oxygen carrying capacity or to his noncardiovascular surgery. 6. Preoperative cardiovascular examination At the present time the patient appears to be without obvious acute cardiovascular symptoms. He does not appear at this time to require additional preoperative cardiovascular evaluation studies, other than those noted above, with respect to exercise tolerance test/imaging study or diagnostic cardiac catheterization, barring some unforeseen change in his clinical status. He should continue on medical management as best as possible in and around the time of his surgical procedure especially with respect to his beta-blockers. He would need close follow-up of his cardiac rate and rhythm and blood pressure during and following his surgical procedure. An attempt should be made to avoid excessive IV volume overload that could bring out CHF/pulmonary edema. Following his surgical procedure be reasonable to restart his antiplatelet therapy when able from a surgical standpoint. Comment: The patient's case has been previously discussed with Dr. Ferreira. This note was generated with [employer] software. It may contain incorrect words, spelling, and punctuation that were not noted in checking the note before signing.
[2018-03-16] MEDS: Fluticasone 0.05% 1 SPRAY NASAL.SRY 2 SPRAY NASAL (21:13)
[2018-03-16] MEDS: Atorvastatin Calcium 80 MG Tablet PO (21:14)
[2018-03-17] VITALS (12 sets, daily range): BP systolic 105–137; BP diastolic 58–72; PULSE 54–71; RESP 10–16; TEMP 36.7–37.3; O2SAT 97–99
[2018-03-17] MEDS: 0.9% Normal Saline 1,000 ML 75 ML IV (06:02)
[2018-03-17 07:12] LABS: Hematocrit 25.7 % (40-54); Hemoglobin 8.4 g/dl (13.0-16.5); Mean Corp Hgb Conc 32.7 g/gl (32-36); Mean Corpuscular Hgb 29.9 pg (27.0-32.0); Mean Corpuscular Volume 91.5 fL (80-94); Mean Platelet Vol. 9.6 fl (6.2-12.0); Platelet Count 121 K/mm3 (150-450); RBC Distribution Width CV 13.1 % (11.6-14.6); RBC Distribution Width SD 41.9 fl (35.1-43.9); Red Blood Count 2.81 M/mm3 (4.6-6.2); White Blood Count 4.5 K/mm3 (4.4-11.0)
[2018-03-17 07:15] LABS: Scan Indicated on CBC? Y/N NO
[2018-03-17] MEDS: Isosorbide Mononitrate 30 MG Tablet PO (10:10)
[2018-03-17] MEDS: Metoprolol Tartrate 25 MG Tablet PO (10:10)
[2018-03-17] MEDS: Lisinopril 20 MG Tablet PO (10:10)
[2018-03-17] MEDS: Tamsulosin HCl 0.4 MG Capsule PO (10:10)
[2018-03-17] MEDS: Pantoprazole Sodium 20 MG Tablet PO (10:11)
[2018-03-17] MEDS: Aspirin 81 MG TAB.CHEW PO (10:11)
--- NOTE | 2018-03-17 11:42 | PCM.PN.HOSP ---
Patient Problems: Active and Suspected Problems (Last Reviewed 03/14/18 @ 14:28 by Yonathan Pozo DO) GI bleed (Acute) Anemia (Acute) Colonic mass (Acute) Preop cardiovascular exam (Acute) Subjective: No further BRBPR, but no BMs Vitals/I&O's: Vital Signs Temp Pulse Resp BP Pulse Ox 37.3 C H 61 16 137/72 H 97 03/17/18 10:10 03/17/18 11:00 03/17/18 10:10 03/17/18 10:10 03/17/18 10:10 Oxygen Flow Rate (L/min) 6 Oxygen Delivery Method Room Air Weight: 104.4 kg Body Mass Index (BMI) 32.1 Intake and Output for Last 24 Hours 03/15/18 03/16/18 03/17/18 23:59 23:59 23:59 Intake Total 3668 / 3668 2549 / 2549 2085 Output Total 1974 1050 / 1050 Balance 1693 / 1693 1499 / 1499 2085 General: Alert, No apparent distress HEENT: Atraumatic, Normocephalic Oral: Moist Mucosa, No Gingival or Mucosal Lesions/ Ulcerations Lungs: Clear to auscultation, Normal air movement, No rhonchi, No wheeze Cardiovascular: Regular rate, Regular Rhythm, Normal S1, Normal S2 Abdomen: Bowel Sounds Present, Soft, Non Tender, Non-Distended Extremities: No edema, No Calf Tenderness Psych/Mental Status: Normal Affect, Appropriate Laboratory Results 03/15/18 16:45: Crossmatch See Detail 03/17/18 06:31: WBC 4.5, RBC 2.81 L, Hgb 8.4 L, Hct 25.7 L, MCV 91.5, MCH 29.9, MCHC 32.7, RDW 13.1, RDW Differential 41.9, Plt Count 121 L, MPV 9.6 Current Medications Aspirin (Aspirin, Baby) 81 mg PO DAILY@0800 [facility] Last Admin: 03/17/18 10:11 Dose: 81 mg Atorvastatin Calcium (Lipitor) [address] [facility] Last Admin: 03/16/18 21:14 Dose: 80 mg Fluticasone Propionate (Flonase Nasal [place]) [address] [facility] Last Admin: 03/16/18 21:13 Dose: 2 spray Sodium Chloride () 1,000 mls @ 75 mls/hr IV .[id number] [facility] Last Admin: 03/17/18 06:02 Dose: 75 mls/hr Isosorbide Mononitrate (Imdur) 30 mg PO DAILY [facility] Last Admin: 03/17/18 10:10 Dose: 30 mg Lisinopril (Zestril) 20 mg PO DAILY [facility] Last Admin: 03/17/18 10:10 Dose: 20 mg Magnesium Hydroxide (Milk Of Magnesia) 30 ml PO DAILY PRN PRN Reason: Constipation Metoprolol Tartrate (Lopressor (Beta Geraldine)) 25 mg PO BID [facility] Last Admin: 03/17/18 10:10 Dose: 25 mg Ondansetron HCl (Zofran) 4 mg IV Q8H PRN PRN PRN Reason: NAUSEA Last Admin: 03/14/18 21:43 Dose: 4 mg Pantoprazole Sodium (Protonix) 20 mg PO BID [facility] Last Admin: 03/17/18 10:11 Dose: 20 mg Sodium Chloride () 5 - 30 ml IV UD PRN PRN Reason: SALINE FLUSH Last Admin: 03/16/18 13:31 Dose: 5 ml Tamsulosin HCl (Flomax) 0.4 mg PO DAILY [facility] Last Admin: 03/17/18 10:10 Dose: 0.4 mg Medical Necessity - Tobacco Use Smoking Status: Never smoker Assessment/Plan All Active Problems (Last Reviewed 03/14/18 @ 14:28 by Yonathan Pozo DO) GI bleed (Acute) Anemia (Acute) Colonic mass (Acute) Preop cardiovascular exam (Acute) Chest pain (Acute) NSTEMI (non-ST elevated myocardial infarction) (Acute) 1. Acute blood loss anemia Secondary to GI bleed hemoglobin has gone from 13.4 to 8.4 Continue to monitor Was transfused 1 unit last night Will type and screen but not transfuse at this time. recheck Hg, if stable or up, can likely be discharged today. 2. GI bleed Secondary to colonic mass and antiplatelet medications Monitor for now. Still with some blood. 3. Colon mass Plan is for surgery on 20 March It will be determined the patient will continue to be hospitalized during the that time or if he can go home and follow-up 4. Coronary artery disease Stent placed in April [address] Fields and he is okay with holding antiplatelet medications in light of GI bleed. 5. DVT prophylaxis with SCDs. Greater than 30 minutes, of which greater than 50% time was counseling about GI bleed and anemia with the patient and his . Code Visit Inpatient E&M: 29130 Subs Hosp L3
--- NOTE | 2018-03-17 11:46 | PN_ITS ---
Patient Problems: Active and Suspected Problems (Last Reviewed 03/14/18 @ 14:28 by Yonathan Pozo DO) GI bleed (Acute) Anemia (Acute) Colonic mass (Acute) Preop cardiovascular exam (Acute) Subjective: No further BRBPR, but no BMs Vitals/I&O's: Vital Signs Temp Pulse Resp BP Pulse Ox 37.3 C H 61 16 137/72 H 97 03/17/18 10:10 03/17/18 11:00 03/17/18 10:10 03/17/18 10:10 03/17/18 10:10 Oxygen Flow Rate (L/min) 6 Oxygen Delivery Method Room Air Weight: 104.4 kg Body Mass Index (BMI) 32.1 Intake and Output for Last 24 Hours 03/15/18 03/16/18 03/17/18 23:59 23:59 23:59 Intake Total 3668 / 3668 2549 / 2549 2085 Output Total 1974 1050 / 1050 Balance 1693 / 1693 1499 / 1499 2085 General: Alert, No apparent distress HEENT: Atraumatic, Normocephalic Oral: Moist Mucosa, No Gingival or Mucosal Lesions/ Ulcerations Lungs: Clear to auscultation, Normal air movement, No rhonchi, No wheeze Cardiovascular: Regular rate, Regular Rhythm, Normal S1, Normal S2 Abdomen: Bowel Sounds Present, Soft, Non Tender, Non-Distended Extremities: No edema, No Calf Tenderness Psych/Mental Status: Normal Affect, Appropriate Laboratory Results 03/15/18 16:45: Crossmatch See Detail 03/17/18 06:31: WBC 4.5, RBC 2.81 L, Hgb 8.4 L, Hct 25.7 L, MCV 91.5, MCH 29.9, MCHC 32.7, RDW 13.1, RDW Differential 41.9, Plt Count 121 L, MPV 9.6 Current Medications Aspirin (Aspirin, Baby) 81 mg PO DAILY@0800 [facility] Last Admin: 03/17/18 10:11 Dose: 81 mg Atorvastatin Calcium (Lipitor) 80 mg PO [facility] Last Admin: 03/16/18 21:14 Dose: 80 mg Fluticasone Propionate (Flonase Nasal [place]) 2 spray NASAL [facility] Last Admin: 03/16/18 21:13 Dose: 2 spray Sodium Chloride () 1,000 mls @ 75 mls/hr IV .[id number] [facility] Last Admin: 03/17/18 06:02 Dose: 75 mls/hr Isosorbide Mononitrate (Imdur) 30 mg PO DAILY [facility] Last Admin: 03/17/18 10:10 Dose: 30 mg Lisinopril (Zestril) 20 mg PO DAILY [facility] Last Admin: 03/17/18 10:10 Dose: 20 mg Magnesium Hydroxide (Milk Of Magnesia) 30 ml PO DAILY PRN PRN Reason: Constipation Metoprolol Tartrate (Lopressor (Beta Geraldine)) 25 mg PO BID [facility] Last Admin: 03/17/18 10:10 Dose: 25 mg Ondansetron HCl (Zofran) 4 mg IV Q8H PRN PRN PRN Reason: NAUSEA Last Admin: 03/14/18 21:43 Dose: 4 mg Pantoprazole Sodium (Protonix) 20 mg PO BID [facility] Last Admin: 03/17/18 10:11 Dose: 20 mg Sodium Chloride () 5 - 30 ml IV UD PRN PRN Reason: SALINE FLUSH Last Admin: 03/16/18 13:31 Dose: 5 ml Tamsulosin HCl (Flomax) 0.4 mg PO DAILY [facility] Last Admin: 03/17/18 10:10 Dose: 0.4 mg Medical Necessity - Tobacco Use Smoking Status: Never smoker Assessment/Plan All Active Problems (Last Reviewed 03/14/18 @ 14:28 by Yonathan Pozo DO) GI bleed (Acute) Anemia (Acute) Colonic mass (Acute) Preop cardiovascular exam (Acute) Chest pain (Acute) NSTEMI (non-ST elevated myocardial infarction) (Acute) 1. Acute blood loss anemia * Secondary to GI bleed * hemoglobin has gone from 13.4 to 8.4 * Continue to monitor * Was transfused 1 unit last night * Will type and screen but not transfuse at this time. * recheck Hg, if stable or up, can likely be discharged today. 2. GI bleed * Secondary to colonic mass and antiplatelet medications * Monitor for now. * Still with some blood. 3. Colon mass * Plan is for surgery on 20 March * It will be determined the patient will continue to be hospitalized during the that time or if he can go home and follow-up 4. Coronary artery disease * Stent placed in April 2017 * Discussed with Dr. Fields and he is okay with holding antiplatelet medications in light of GI bleed. 5. DVT prophylaxis with SCDs. Greater than 30 minutes, of which greater than 50% time was counseling about GI bleed and anemia with the patient and his . Code Visit Inpatient E&M: 09613 Subs Hosp L3
[2018-03-17 13:09] LABS: Absolute Lymphocyte Count 0.88 X10^3/ul (0.83-4.51); Absolute Neutrophil Count 3.2 X10^3/uL (2.0-7.7); Basophil# 0.01 X10^3/uL; Basophil% 0.2 % (0-1); Eosinophil# 0.09 X10^3/uL; Eosinophils% 1.9 % (0-5); Hematocrit 26.8 % (40-54); Hemoglobin 8.8 g/dl (13.0-16.5); Lymphocyte # 0.88 X10^3/ul (4.0); Lymphocyte % 18.4 % (19-41); Mean Corp Hgb Conc 32.8 g/gl (32-36); Mean Corpuscular Hgb 29.4 pg (27.0-32.0); Mean Corpuscular Volume 89.6 fL (80-94); Monocyte# 0.63 X10^3/uL; Monocyte% 13.2 % (0-10); Neutrophil # 3.15 X10^3/uL (2.7-7.7); Neutrophil % 66.1 % (47-70); Platelet Count 123 K/mm3 (150-450); RBC Distribution Width CV 13.3 % (11.6-14.6); RBC Distribution Width SD 42.9 fl (35.1-43.9); Red Blood Count 2.99 M/mm3 (4.6-6.2); White Blood Count 4.8 K/mm3 (4.4-11.0)
[2018-03-17 13:10] LABS: POSITIVE COUNT NO; POSITIVE DIFFERENTIAL NO; POSITIVE MORPHOLOGY NO
--- NOTE | 2018-03-17 14:15 | PCM.DC ---
- Discharge Diagnoses Current Active Problems: Current Active and Chronic Problems (Last Reviewed 03/14/18 @ 14:28 by Yonathan Pozo DO) GI bleed (Acute) S/P PTCA (percutaneous transluminal coronary angioplasty) (Chronic) Anemia (Acute) Colonic mass (Acute) Preop cardiovascular exam (Acute) You will use the following diet at home:: Other - Mechanical soft. Ground meats. Clear liquid diet starting 04/06/18 Your food should be the consistency of: Mechanical soft (ground) Your liquids should be the consistency of: Regular/Thin Discharge Activity: Return to Normal Activity Call your doctor if you observe: Chest pain, - - recurrent rectal bleeding. Allergies/Adverse Reactions: Allergies omeprazole [From Prilosec] Adverse Reaction (Verified 03/14/18 08:05) lowers WBCs Medications to take at Discharge Psyllium [Metamucil] 1 packet PO DAILY 05/13/17 Rabeprazole Sodium [Aciphex] 20 mg PO BID 05/13/17 Tamsulosin HCl [Flomax] 0.4 mg PO QHS 05/13/17 Aspirin E.C. [Ecotrin] 81 mg PO DAILY@0800 #30 tablet 05/16/17 Isosorbide Mononitrate [Imdur] 30 mg PO DAILY #30 tab 05/16/17 Lisinopril [Zestril] 20 mg PO DAILY #30 tab 05/16/17 Metoprolol Tartrate [Lopressor (beta mandeep)] 25 mg PO BID #60 tab 05/16/17 atorvastatin 80 mg tablet 80 mg PO QHS 08/24/17 docusate sodium 100 mg capsule 100 mg PO BID 08/25/17 triamcinolone acetonide 55 mcg/actuation nasal spray,aerosol 2 spray INTRANASAL QHS 08/25/17 Glucosamine/MSM/Chondroitin A [Glucosamine Chondroit MSM Tab] 1 each PO DAILY 03/14/18 Polyethylene Glycol 3350 [Miralax] 17 gm PO DAILY 03/14/18 Lisinopril [Zestril] 20 mg PO DAILY tablet 03/17/18 Primary Care Physician: Xavier El DO [Primary Care Provider] - Within 2 Weeks Please Follow Up With: Luciano Ferreira MD When: 03/19/18 Please Follow Up With: Esteban Grigsby MD When: 1 month Proposed Discharge Date: 03/17/18
--- NOTE | 2018-03-17 14:18 | PCM.DC.SUM ---
Discharge Date and Diagnosis - Problem List Patient Problems: Active and Suspected Problems (Last Reviewed 03/14/18 @ 14:28 by Yonathan Pozo DO) GI bleed (Acute) Anemia (Acute) Colonic mass (Acute) Preop cardiovascular exam (Acute) Date of Admission: 03/14/18 Date of Discharge: 03/17/18 - Primary Discharge Diagnosis Active and Suspected Problems (Last Reviewed 03/14/18 @ 14:28 by Yonathan Pozo DO) GI bleed (Acute) Anemia (Acute) Colonic mass (Acute) Preop cardiovascular exam (Acute) - Secondary Discharge Diagnosis Chronic Problems (Last Reviewed 03/14/18 @ 14:28 by Yonathan Pozo DO) S/P PTCA (percutaneous transluminal coronary angioplasty) (Chronic) Hyperlipemia, mixed (Chronic) Essential (primary) hypertension (Chronic) Atherosclerotic heart disease of [place] coronary artery without angina pectoris (Chronic) HTN (hypertension) (Chronic) HLD (hyperlipidemia) (Chronic) Peptic ulcer disease (Chronic) Hospital Course and Treatment Imaging Results: Clinical Impression(s) from Imaging Studies Abdomen/Pelvis CT 03/14/18 08:22 IMPRESSION: Relatively focal thickening within the mid transverse colon. This can be further evaluated with endoscopy or contrast enema, as clinically indicated. Question mild wall thickening within the distal esophagus. This may represent esophagitis. Cholelithiasis. Additional findings, as detailed above. Electronically Signed: Cj Glover DO at 10:36 EDT Tel , Service support , [facility] X-Ray 03/16/18 06:41 IMPRESSION: Findings suggestive of an ileus gas pattern. Electronically Signed: Dylan Abdalla MD at 8:39 EDT Tel [phone], Service support , Lorenza Grigsby Operations: None Procedures: Colonoscopy, EGD Summary of Care Provided: The patient is a 68 year old M GI bleed. Patient was seen in consultation by general surgery as well as cardiology. Patient underwent an EGD and colonoscopy to have a colonic mass. The bleeding was coming from the colonic mass but also comp gated by the patient's dual antiplatelet therapy that she is a coronary stent that had placed in April 2017. Plavix is discontinued patient will continue with aspirin given the stent. Plan is for the patient to have a partial colectomy performed on March [address] Valle. Patient was transfused 1 unit of packed red blood cells while he was here. Patient's hemoglobin has been stable though he did have a drop from 13.4 to 8.4. 1. Acute blood loss anemia Secondary to GI bleed hemoglobin has gone from 13.4 to 8.4 Continue to monitor Was transfused 1 unit last night Will type and screen but not transfuse at this time. recheck Hg, if stable or up, can likely be discharged today. 2. GI bleed Secondary to colonic mass and antiplatelet medications Monitor for now. Still with some blood. 3. Colon mass Plan is for surgery on 20 March It will be determined the patient will continue to be hospitalized during the that time or if he can go home and follow-up 4. Coronary artery disease Stent placed in April 2017 Back on ASA Plavix held due to anemia and GI, plus upcoming surgery. [] Discharge Diet: Soft diet Discharge Activity: Return to Normal Activity Call your doctor if you observe: Chest pain, - - recurrent rectal bleeding. Home Medications: Medications to take at Discharge Psyllium [Metamucil] 1 packet PO DAILY 05/13/17 Rabeprazole Sodium [Aciphex] 20 mg PO BID 05/13/17 Tamsulosin HCl [Flomax] 0.4 mg PO QHS 05/13/17 Aspirin E.C. [Ecotrin] 81 mg PO DAILY@0800 #30 tablet 05/16/17 Isosorbide Mononitrate [Imdur] 30 mg PO DAILY #30 tab 05/16/17 Lisinopril [Zestril] 20 mg PO DAILY #30 tab 05/16/17 Metoprolol Tartrate [Lopressor (beta mandeep)] 25 mg PO BID #60 tab 05/16/17 atorvastatin 80 mg tablet 80 mg PO QHS 08/24/17 docusate sodium 100 mg capsule 100 mg PO BID 08/25/17 triamcinolone acetonide 55 mcg/actuation nasal spray,aerosol 2 spray INTRANASAL QHS 08/25/17 Glucosamine/MSM/Chondroitin A [Glucosamine Chondroit MSM Tab] 1 each PO DAILY 03/14/18 Polyethylene Glycol 3350 [Miralax] 17 gm PO DAILY 03/14/18 Lisinopril [Zestril] 20 mg PO DAILY tablet 03/17/18 Primary Care Physician: Xavier El DO [Primary Care Provider] - Within 2 Weeks Please Follow Up With: Luciano Ferreira MD When: 03/19/18 Please Follow Up With: Esteban Grigsby MD When: 1 month Disposition: Home Minutes spent on discharge:: 35 Patient Condition:: Good Medical Necessity - Tobacco Use Smoking Status: Never smoker Meaningful Use Info Meaningful Use Diagnoses (Choose all that apply): None applicable Code Visit Inpatient E&M: 83091 Disch Hosp
--- NOTE | 2018-03-17 14:23 | DS.PCM_ITS ---
Discharge Date and Diagnosis - Problem List Patient Problems: Active and Suspected Problems (Last Reviewed 03/14/18 @ 14:28 by Yonathan Pozo DO) GI bleed (Acute) Anemia (Acute) Colonic mass (Acute) Preop cardiovascular exam (Acute) Date of Admission: 03/14/18 Date of Discharge: 03/17/18 - Primary Discharge Diagnosis Active and Suspected Problems (Last Reviewed 03/14/18 @ 14:28 by Yonathan Pozo DO) GI bleed (Acute) Anemia (Acute) Colonic mass (Acute) Preop cardiovascular exam (Acute) - Secondary Discharge Diagnosis Chronic Problems (Last Reviewed 03/14/18 @ 14:28 by Yonathan Pozo DO) S/P PTCA (percutaneous transluminal coronary angioplasty) (Chronic) Hyperlipemia, mixed (Chronic) Essential (primary) hypertension (Chronic) Atherosclerotic heart disease of [place] coronary artery without angina pectoris (Chronic) HTN (hypertension) (Chronic) HLD (hyperlipidemia) (Chronic) Peptic ulcer disease (Chronic) Hospital Course and Treatment Imaging Results: Clinical Impression(s) from Imaging Studies Abdomen/Pelvis CT 03/14/18 08:22 IMPRESSION: Relatively focal thickening within the mid transverse colon. This can be further evaluated with endoscopy or contrast enema, as clinically indicated. Question mild wall thickening within the distal esophagus. This may represent esophagitis. Cholelithiasis. Additional findings, as detailed above. Electronically Signed: Cj Glover DO at 10:36 EDT Tel , Service support , KUB X-Ray 03/16/18 06:41 IMPRESSION: Findings suggestive of an ileus gas pattern. Electronically Signed: Dylan Abdalla MD at 8:39 EDT Tel [phone], Service support , Lorenza Grigsby Operations: None Procedures: Colonoscopy, EGD Summary of Care Provided: The patient is a 68 year old M GI bleed. Patient was seen in consultation by general surgery as well as cardiology. Patient underwent an EGD and colonoscopy to have a colonic mass. The bleeding was coming from the colonic mass but also comp gated by the patient's dual antiplatelet therapy that she is a coronary stent that had placed in April 2017. Plavix is discontinued patient will continue with aspirin given the stent. Plan is for the patient to have a partial colectomy performed on March [address] Valle. Patient was transfused 1 unit of packed red blood cells while he was here. Patient's hemoglobin has been stable though he did have a drop from 13.4 to 8.4. 1. Acute blood loss anemia * Secondary to GI bleed * hemoglobin has gone from 13.4 to 8.4 * Continue to monitor * Was transfused 1 unit last night * Will type and screen but not transfuse at this time. * recheck Hg, if stable or up, can likely be discharged today. 2. GI bleed * Secondary to colonic mass and antiplatelet medications * Monitor for now. * Still with some blood. 3. Colon mass * Plan is for surgery on 20 March * It will be determined the patient will continue to be hospitalized during the that time or if he can go home and follow-up 4. Coronary artery disease * Stent placed in April 2017 * Back on ASA * Plavix held due to anemia and GI, plus upcoming surgery. [] Discharge Diet: Soft diet Discharge Activity: Return to Normal Activity Call your doctor if you observe: Chest pain, - - recurrent rectal bleeding. Home Medications: Medications to take at Discharge Psyllium [Metamucil] 1 packet PO DAILY 05/13/17 Rabeprazole Sodium [Aciphex] 20 mg PO BID 05/13/17 Tamsulosin HCl [Flomax] 0.4 mg PO QHS 05/13/17 Aspirin E.C. [Ecotrin] 81 mg PO DAILY@0800 #30 tablet 05/16/17 Isosorbide Mononitrate [Imdur] 30 mg PO DAILY #30 tab 05/16/17 Lisinopril [Zestril] 20 mg PO DAILY #30 tab 05/16/17 Metoprolol Tartrate [Lopressor (beta mandeep)] 25 mg PO BID #60 tab 05/16/17 atorvastatin 80 mg tablet 80 mg PO QHS 08/24/17 docusate sodium 100 mg capsule 100 mg PO BID 08/25/17 triamcinolone acetonide 55 mcg/actuation nasal spray,aerosol 2 spray INTRANASAL QHS 08/25/17 Glucosamine/MSM/Chondroitin A [Glucosamine Chondroit MSM Tab] 1 each PO DAILY Polyethylene Glycol 3350 [Miralax] 17 gm PO DAILY 03/14/18 Lisinopril [Zestril] 20 mg PO DAILY tablet 03/17/18 Primary Care Physician: Xaveir El DO [Primary Care Provider] - Within 2 Weeks Please Follow Up With: Luciano Ferreira MD When: 03/19/18 Please Follow Up With: Esteban Grigsby MD When: 1 month Disposition: Home Minutes spent on discharge:: 35 Patient Condition:: Good Medical Necessity - Tobacco Use Smoking Status: Never smoker Meaningful Use Info Meaningful Use Diagnoses (Choose all that apply): None applicable Code Visit Inpatient E&M: 04889 Disch Hosp
== END 2018-03-17 15:18 | disposition home or self-care (01) | DRG 378 ==
LOC: ED 08:25 → PCU 11:41
PROVIDERS: Internal Medicine; Physician Assistant; Surgery; Emergency Provider Emergency Medicine; Family Provider Preventive Medicine Occupational Medicine; PCP Preventive Medicine Occupational Medicine
PROC: 0DJD8ZZ Inspection of Lower Intestinal Tract, Via Natural or Artificial Opening Endoscopic (ICD-10-PCS; CPT 45378; principal; 2018-03-15 12:00)
DX: K92.2 Gastrointestinal hemorrhage, unspecified (principal); D62 Acute posthemorrhagic anemia; K63.9 Disease of intestine, unspecified; I25.10 Atherosclerotic heart disease of native coronary artery without angina pectoris; I10 Essential (primary) hypertension; K29.60 Other gastritis without bleeding; K31.7 Polyp of stomach and duodenum; N40.0 Benign prostatic hyperplasia without lower urinary tract symptoms; E78.5 Hyperlipidemia, unspecified; I25.2 Old myocardial infarction; Z95.5 Presence of coronary angioplasty implant and graft; K27.9 Peptic ulcer, site unspecified, unspecified as acute or chronic, without hemorrhage or perforation; Z79.02 Long term (current) use of antithrombotics/antiplatelets
CPT/HCPCS: 36415; 74018; 74177; 80048; 82274; 83036; 85014; 85018; 85025; 85027; 85610; 85730; 86850; 86900; 86920; 88305; 88341; 88342; 93005; 93306; 97803; 99285; J7030; P9016; Q9967; A4216; A4648; J2405

== ENCOUNTER 2018-03-20 07:03 | Inpatient (IN) | payer MEDICARE, SELFPAY ==
[2017-05-15 11:53] VITALS: BMI 35.6
[2018-03-20] VITALS (10 sets, daily range): BP systolic 98–152; BP diastolic 49–85; PULSE 51–101; RESP 14–18; TEMP 36.6–37.1; O2SAT 93–100; BMI 31.2; BMI 31.8
--- NOTE | 2018-03-20 | IMM_PTH ---
PATIENT: MYRNA CAPPS Jr. LOC: MS3 U#:[id number] AGE/SX: 68/M ROOM: NC314 RE03/20/[address]: Dr. Luciano Ferreira MD : 1950 BED: 1 DIS: 03/23/2018 SPEC #: [id number] RECD: 03/26/18 09:32 STATUS: KEO REQ #: [id number] DAYANARA: 03/20/18 00:[address]: Luciano Ferreira DEPT: IMMUNOHISTOCHEMISTRY RECD BY: Stephanie Moran ENTERED: 03/26/18 09:34 SP TYPE: IMMUNO OTHR DR: Dr. Xavier El DO Tissues: A - Right colon Procedures: MSH2 (add) MLH-1 (add) MSH6 (add) Anti-PMS2 (add) CD31 (add) DUFFY-2 (add) KI-67 (add) P53 (add) FACTOR VIII (add) HER-2-KENDRICK (initial) PHYSICIAN & [address] [address] SPECIMEN INFORMATION: Tissue Source: A ? Right colon Clinical Info: Malignant neoplasm of transverse colon Specimen Number: [id number] #25 CPT code: 66606, 14488 x9 METHODOLOGY: Deparaffinized sections of prefer/formalin-fixed tissue or PAP/DQ stained slides are incubated with monoclonal/polyclonal antibodies/oligonucleotide probes. Localization is made via biotin free immunoperoxidase method. Appropriate controls are performed and reacted as expected. Results on target cell population are indicated in the following table: RESULTS: ANTIBODY / CLONE RESULT Block 25 COLON CANCER PROFILE (Prognostic Markers) Ki-67 (30-9) positive, moderate P53 (DO-7) positive, >50% MSH2 (25D12) positive MSH6 (44) positive MLH-1 (M1) positive PMS2 (MYX1905) negative DUFFY-2 (SP21) positive Her-2neu (CB11) negative CD31 (MELITA/70A) negative Factor VIII (R Ag) negative These tests were developed and their performance characteristics determined by [facility]. They may not have been cleared or approved by the U.S. Food and Drug Administration. The FDA has determined that such clearance or approval is not necessary. INTERPRETATION: Right colon, hemicolectomy: Invasive adenocarcinoma. Result of Microsatellite Instability Study: Negative (no loss of mismatch protein; no microsatellite instability detected). AM:claudio 03/27/18
--- NOTE | 2018-03-20 | COL._PTH ---
PATIENT: MYRNA CAPPS Jr. LOC: MS3 U#:[id number] AGE/SX: 68/M ROOM: MS314 RE03/20/[address]: Dr. Luciano Ferreira MD : 1950 BED: 1 DIS: 03/23/2018 SPEC #: [id number] RECD: 03/20/18 14:45 STATUS: KEO REQ #: [id number] DAYANARA: 03/20/18 00:[address]: Luciano Ferreira DEPT: SURGICAL PATHOLOGY RECD BY: Haile Mayo ENTERED: 03/20/18 14:45 SP TYPE: COLON OTHR DR: Dr. Xavier El DO Tissues: A - Colon, NOS B - HERNIA Procedures: Surgery Specimen Level II Surgery Specimen Level HEADER OPERATION: Laparoscopic right hemicolectomy PRE-OP DIAGNOSIS: Malignant neoplasm of transverse colon TISSUE SUBMITTED: A. Right colon, B. Umbilical hernia sac MICROSCOPIC DIAGNOSIS A. Right colon, hemicolectomy: Invasive adenocarcinoma. See complete cancer checklist below. B. Soft tissue of umbilical region, excision: Fragment of fibrofatty tissue with mild fibrosis consistent with hernia sac. No evidence of malignancy. AM:claudio 03/26/18 COMMENT COLON CANCER SUMMARY: Specimen ? right colon Procedure ? right hemicolectomy Tumor site ? right colon Tumor size ? 2.5 x 2 x 0.5 cm Macroscopic tumor perforation ? not identified Histologic type - adenocarcinoma Histologic grade ? low-grade (moderately differentiated) Microscopic tumor extension ? tumor invades through the muscularis propria to the subserosal adipose tissue. Tumor is located 3 cm from its closest (distal) mucosal margin of excision. Margins: Proximal margin ? uninvolved by invasive carcinoma. Distal margin - uninvolved by invasive carcinoma. Circumferential or mesenteric margin - uninvolved by invasive carcinoma. Treatment effect - unknown Lymph-Vascular invasion ? not identified. Perineural invasion ? not identified Tumor deposits - not identified Lymph nodes: Number of lymph nodes examined - 39 Number of lymph nodes involved - 1 Additional pathologic findings ? largest polyp close to ileocecal valve with focal high-grade dysplasia. Two smaller polyps ? tubular adenoma Appendix ? fibrous obliteration of distal appendix and focal hyperplastic mucosal change. Ancillary studies: Microsatellite instability - Negative (no loss of mismatch protein; no microsatellite instability detected). Immunohistochemistry studies for mismatch repair proteins: MLH1 - Intact nuclear positivity, tumor cells MSH2 - Intact nuclear positivity, tumor cells MSH6 - Intact nuclear positivity, tumor cells PMS2 - Intact nuclear positivity, tumor cells PATHOLOGIC STAGE: pT3 N1a Mx The above summary is in compliance with [employer] (CAP) Cancer Protocols Checklist and [place] Joint Committee on Cancer (AJCC), Staging Manual, 8th Ed. Case has been reviewed in consultation with Dr. Bocanegra who concurs with the above diagnosis. IDC:SJ MICROSCOPIC DESCRIPTION Slides are reviewed. GROSS DESCRIPTION A - Received in fixative is one container labeled with the patient's name and designated right colon. The specimen consists of a 24 cm segment of large bowel with attached 8.5 cm of small bowel and attached 8 cm of appendix that has an average diameter of 1 cm. Located approximately 3 cm from the distal margin of resection is a firm, indurated and ulcerated mass measuring 2.5 x 2 x 0.5 cm. A metallic endoscopic clip is attached to the mucosa adjacent to the mass. The remainder of the small and large bowel mucosa is thrown into normal folds. Located 3 cm distal to the ileocecal valve is a larger polyp measuring 2 x 1.5 x 0.5 cm. The serosal surface in area of this larger polyp is inked in blue ink. Small polyps ranging in size from 0.2 to 0.5 cm are present at a distance of 4 and 7 cm proximal to the mass, respectively. Sections of the appendix do not reveal mass lesions. The serosal surface in area of mass is inked in black ink. Also present free in the container are two irregular segments of becker, glistening mucosa ranging in size from 2.5 to 4 cm. No mass lesions are identified in these mucosal fragments. The attached fibrofatty tissue contains a number of grossly unremarkable lymph nodes. Also present attached to the specimen is a portion of omentum measuring 29 x 13 x 4 cm. Serial sections of the omentum does not reveal mass lesions. Sections are submitted as follows: 1 - [employer] Graduate [employer] sections of small fragments of bowel free in container, 2 ? proximal and distal mucosal margins, 3 ? appendix, 4 ? ileocecal valve, 5 ? largest polyp closest to ileocecal valve, 6 ? smaller polyps, 7-11 ? mass, totally submitted, 12-19 ? multiple lymph nodes in each cassette. B - Received in fixative is one container labeled with the patient's name and designated umbilical hernia sac. The specimen consists of an irregular fragment of becker-yellow fibrofatty tissue measuring 5.6 x 3.5 x 1.5 cm. Sections do not reveal mass lesions. Post Graduate Internship sections are submitted in one cassette. / AM:claudio 03/22/18 TC:0 CPT: 61298, 48672 ADDENDUM ADDENDUM ADDENDUM ADDENDUM ADDENDUM ADDENDUM ADDENDUM 09/30/2019 10:09 ADDENDUM 09/30/2019 10:09 ADDENDUM 09/30/2019 10:09 ADDENDUM 09/30/2019 10:09 ADDENDUM 09/30/2019 10:09 ALICIA/JIGAR REFLEX TO BRAF REPORT FROM [facility] Results: Negative NRAS Results: Negative Please see complete report in e-chart or EMR for further details
[2018-03-20 08:15] LABS: Absolute Neutrophil Count 3.2 X10^3/uL (2.0-7.7); Basophil# 0.01 X10^3/uL; Basophil% 0.2 % (0-1); Eosinophil# 0.06 X10^3/uL; Eosinophils% 1.4 % (0-5); Hematocrit 30.6 % (40-54); Hemoglobin 10.2 g/dl (13.0-16.5); Mean Corp Hgb Conc 33.3 g/gl (32-36); Mean Corpuscular Hgb 29.5 pg (27.0-32.0); Mean Corpuscular Volume 88.4 fL (80-94); Mean Platelet Vol. 8.8 fl (6.2-12.0); Monocyte# 0.34 X10^3/uL; Monocyte% 8.2 % (0-10); Neutrophil # 3.23 X10^3/uL (2.7-7.7); Platelet Count 183 K/mm3 (150-450); RBC Distribution Width CV 13.1 % (11.6-14.6); RBC Distribution Width SD 41.8 fl (35.1-43.9); Red Blood Count 3.46 M/mm3 (4.6-6.2); White Blood Count 4.2 K/mm3 (4.4-11.0)
[2018-03-20 08:27] LABS: Differential Indicated SCAN CRITERIA MET; POSITIVE COUNT NO; POSITIVE DIFFERENTIAL YES; POSITIVE MORPHOLOGY NO
[2018-03-20] MEDS: Bupivacaine Mpf 0.5% 30 ML VIAL (14:00)
--- NOTE | 2018-03-20 14:08 | PCM.OPRPT ---
Report of Operation Date of Procedure: 03/20/18 Pre-Operative Diagnosis: transverse colon cancer Post-Operative Diagnosis: transverse colon cancer - mid to left of midline transverse colon, small umbilical hernia Surgery/Procedure Performed:: laparoscopic extended right hemicolectomy Description of Surgical Findings:: as above childbirth educator: Shirin Cheng Type of Anesthesia:: General Anesthesiologist: Yonathan Denny - ASA3 Specimen's removed: hernia sac, extended right colon Drains: none Estimated Blood Loss (mL): 125 Fluids Replaced: 1999 Description of Procedure: The patient was brought to the operating suite. Sign in was performed verifying patient, site, procedure, position, and DVT prophylaxis with SCDs. Patient 2 g of cefotetan. Preoperative bowel prep of mechanical and antibiotic comprised of GoLYTELY and then neomycin and Flagyl 1 g 3 doses evening before was given. Following induction of general anesthetic. The patients abdomen was prepped and draped in the usual fashion. Timeout was performed verifying patient, site, position. Local anesthetic was injected below the umbilicus. Incision made and dissection carried down to the umbilical root fascia. 2 stay sutures were placed. Incision made in the fascia, the peritoneum entered under direct visualization. A 10 mm Valladares trocar was inserted and secured with the stay sutures. Pneumoperitoneum to 15 mmHg was insufflated. Visual inspection revealed no abnormalities in the liver. The area of tattooing of the tumor was noted to be to the left of the midline by a about 3 cm. 2 5mm ports were placed in the standard midline position and an additional foam was placed in the left upper quadrant. Mobilization the avascular plane was undertaken from the base of the cecum up and around the hepatic flexure. Division of the lesser sac from the midline to the hepatic flexure was undertaken. When this was fully mobilized, the duodenum was visualized from the right flank region. Following this, division of the gastrocolic omentum was undertaken starting to the left of the tumor site and progressing from that left upper quadrant area across the midline, connecting finally to the mobilization at the site of the hepatic flexure. Care was taken to avoid injury of the middle colic vessel, the stomach, and the gastroduodenal vessels Next, the terminal ileum area was brought up and a cleavage point noted in the mesentery. Harmonic Scalpel was used to create a window in the terminal ileal mesentery and division was taken down to the ileocolic root. Next the transverse colon was grasped and the vasculature coming from the middle colic vessel was identified. A window was made in the bare area proximal to the middle colic vessels just overlying the duodenal sweep. This was also fully divided. Dissection was then carried out at the ileal colic vessel root. The artery and vein were identified and doubly clipped proximally and doubly clipped distally with Hem-o-venita clips. The tumor in the mid transverse colon was noted to be just beyond the abdominal midline to the left of midline. There was noted to be a branch of the middle colic vessel which seemed takeoff directly towards the splenic flexure. This branch was protected. Dissection was continued, dividing the transverse mesocolon at the planned point of colonic transection down to the branches of the middle colic going to the middle transverse colon at the site of the tumor. Again, connecting all the way to the previous dissected area towards the ileocolic branch. Vessels were doubly clipped proximally and singly clipped distally with Hem-o-venita clips. With full dissection of the mesentery and full mobilization the colon, the umbilical incision was extended and a wound protector placed. The terminal ileum and cecum ascending colon and extended transverse colon were delivered through the wound protector. Complete division of the mesentery to the bowel was undertaken at both sites. The bowel was transected with an intestinal load echelon stapler. On this a functional stapled end-to-end anastomosis was performed between the ileum and transverse colon with an echelon stapler. The staple line was checked for hemostasis and following this the anastomosis closed with a TA stapler creating a wide triangle opening that was easily palpable. A 3-0 silk suture was used to take tension off the apex of the staple line and Betadine painted on the TA staple line. At this point, the specimen was opened on the back table. There was noted to be tumor in the expected location. Gown and gloves were changed. Pneumoperitoneum was reestablished. There was good anatomic positioning of the small bowel. It was good hemostasis along the incisions. Pneumoperitoneum was released. The midline/supraumbilical fascial defect was closed with a running 0 PDS suture. Pneumoperitoneum was reestablished. The 5mm ports were removed under direct visualization with no signs of bleeding. Pneumoperitoneum was released. Subcutaneous fat reapproximated with interrupted 3-0 Vicryl sutures. Skin was closed with interrupted 4-0 Monocryl subcuticular sutures. Steri-Strips and bandages were applied. The patient was brought to recovery room in stable condition. - Admit VTE Documentation VTE Present on Admission: No VTE Mechan Device Prophylaxis: SCD's VTE Pharm Prophylaxis ordered?: Yes
--- NOTE | 2018-03-20 14:11 | OP.PCM_ITS ---
Report of Operation Date of Procedure: 03/20/18 Pre-Operative Diagnosis: transverse colon cancer Post-Operative Diagnosis: transverse colon cancer - mid to left of midline transverse colon, small umbilical hernia Surgery/Procedure Performed:: laparoscopic extended right hemicolectomy Description of Surgical Findings:: as above laundry bag punch operator: Shirin Cheng Type of Anesthesia:: General Anesthesiologist: Yonathan Denny - ASA3 Specimen's removed: hernia sac, extended right colon Drains: none Estimated Blood Loss (mL): 125 Fluids Replaced: 2000 Description of Procedure: The patient was brought to the operating suite. Sign in was performed verifying patient, site, procedure, position, and DVT prophylaxis with SCDs. Patient 2 g of cefotetan. Preoperative bowel prep of mechanical and antibiotic comprised of GoLYTELY and then neomycin and Flagyl 1 g 3 doses evening before was given. Following induction of general anesthetic. The patient?s abdomen was prepped and draped in the usual fashion. Timeout was performed verifying patient, site , position. Local anesthetic was injected below the umbilicus. Incision made and dissection carried down to the umbilical root fascia. 2 stay sutures were placed. Incision made in the fascia, the peritoneum entered under direct visualization. A 10 mm Valladares trocar was inserted and secured with the stay sutures. Pneumoperitoneum to 15 mmHg was insufflated. Visual inspection revealed no abnormalities in the liver. The area of tattooing of the tumor was noted to be to the left of the midline by a about 3 cm. 2 5mm ports were placed in the standard midline position and an additional foam was placed in the left upper quadrant. Mobilization the avascular plane was undertaken from the base of the cecum up and around the hepatic flexure. Division of the lesser sac from the midline to the hepatic flexure was undertaken. When this was fully mobilized, the duodenum was visualized from the right flank region. Following this, division of the gastrocolic omentum was undertaken starting to the left of the tumor site and progressing from that left upper quadrant area across the midline , connecting finally to the mobilization at the site of the hepatic flexure. Care was taken to avoid injury of the middle colic vessel, the stomach, and the gastroduodenal vessels Next, the terminal ileum area was brought up and a cleavage point noted in the mesentery. Harmonic Scalpel was used to create a window in the terminal ileal mesentery and division was taken down to the ileocolic root. Next the transverse colon was grasped and the vasculature coming from the middle colic vessel was identified. A window was made in the bare area proximal to the middle colic vessels just overlying the duodenal sweep. This was also fully divided. Dissection was then carried out at the ileal colic vessel root. The artery and vein were identified and doubly clipped proximally and doubly clipped distally with Hem-o-venita clips. The tumor in the mid transverse colon was noted to be just beyond the abdominal midline to the left of midline. There was noted to be a branch of the middle colic vessel which seemed takeoff directly towards the splenic flexure. This branch was protected. Dissection was continued, dividing the transverse mesocolon at the planned point of colonic transection down to the branches of the middle colic going to the middle transverse colon at the site of the tumor. Again, connecting all the way to the previous dissected area towards the ileocolic branch. Vessels were doubly clipped proximally and singly clipped distally with Hem-o-venita clips. With full dissection of the mesentery and full mobilization the colon, the umbilical incision was extended and a wound protector placed. The terminal ileum and cecum ascending colon and extended transverse colon were delivered through the wound protector. Complete division of the mesentery to the bowel was undertaken at both sites. The bowel was transected with an intestinal load echelon stapler. On this a functional stapled end-to-end anastomosis was performed between the ileum and transverse colon with an echelon stapler. The staple line was checked for hemostasis and following this the anastomosis closed with a TA stapler creating a wide triangle opening that was easily palpable. A 3-0 silk suture was used to take tension off the apex of the staple line and Betadine painted on the TA staple line. At this point, the specimen was opened on the back table. There was noted to be tumor in the expected location. Gown and gloves were changed. Pneumoperitoneum was reestablished. There was good anatomic positioning of the small bowel. It was good hemostasis along the incisions. Pneumoperitoneum was released. The midline/supraumbilical fascial defect was closed with a running 0 PDS suture. Pneumoperitoneum was reestablished. The 5mm ports were removed under direct visualization with no signs of bleeding. Pneumoperitoneum was released. Subcutaneous fat reapproximated with interrupted 3-0 Vicryl sutures. Skin was closed with interrupted 4-0 Monocryl subcuticular sutures. Steri-Strips and bandages were applied. The patient was brought to recovery room in stable condition. - Admit VTE Documentation VTE Present on Admission: No VTE Mechan Device Prophylaxis: SCD's VTE Pharm Prophylaxis ordered?: Yes
[2018-03-20 14:56] LABS: Absolute Lymphocyte Count 0.33 X10^3/ul (0.83-4.51); Absolute Neutrophil Count 6.4 X10^3/uL (2.0-7.7); Basophil# 0.01 X10^3/uL; Basophil% 0.1 % (0-1); Hematocrit 27.6 % (40-54); Hemoglobin 9.2 g/dl (13.0-16.5); Lymphocyte # 0.33 X10^3/ul (4.0); Lymphocyte % 4.7 % (19-41); Mean Corp Hgb Conc 33.3 g/gl (32-36); Mean Corpuscular Hgb 29.4 pg (27.0-32.0); Mean Corpuscular Volume 88.2 fL (80-94); Mean Platelet Vol. 8.6 fl (6.2-12.0); Monocyte# 0.29 X10^3/uL; Monocyte% 4.1 % (0-10); Neutrophil # 6.38 X10^3/uL (2.7-7.7); Neutrophil % 91.1 % (47-70); Platelet Count 142 K/mm3 (150-450); RBC Distribution Width CV 12.9 % (11.6-14.6); RBC Distribution Width SD 41.5 fl (35.1-43.9); Red Blood Count 3.13 M/mm3 (4.6-6.2)
[2018-03-20 14:58] LABS: Differential Indicated SCAN CRITERIA MET; POSITIVE COUNT NO; POSITIVE DIFFERENTIAL YES; POSITIVE MORPHOLOGY NO
--- NOTE | 2018-03-20 15:47 | NURSING ---
NO FLU VACCINE
--- NOTE | 2018-03-20 16:10 | NURSING ---
LR RUNNING PER ORDER AT 90CC/HR- WITH BAG FROM ER
[2018-03-20] MEDS: 0.9% NaCl Peripheral Flush Adult/Peds IV (17:59)
[2018-03-20] MEDS: Ondansetron 4 MG/2 ML Vial IV (17:59)
[2018-03-20] MEDS: Morphine 2 MG/ML Syringe IV ×3 (17:59→22:08)
[2018-03-20] MEDS: Lactated Ringers 1,000 ML 90 ML IV (18:12)
[2018-03-20] MEDS: Ibuprofen 400 MG Tablet PO (22:09)
[2018-03-20] MEDS: Pantoprazole Sodium 20 MG Tablet PO (22:11)
[2018-03-20] MEDS: Metoprolol Tartrate 25 MG Tablet PO (22:11)
[2018-03-20] MEDS: Tamsulosin HCl 0.4 MG Capsule PO (22:12)
[2018-03-20] MEDS: Fluticasone 0.05% 1 SPRAY NASAL.SRY 2 SPRAY NASAL (22:16)
[2018-03-21] MEDS: Morphine 2 MG/ML Syringe IV ×3 (00:26→05:38)
[2018-03-21 02:00] VITALS: BP 151/85; PULSE 91; RESP 16; TEMP 37.3; O2SAT 97
--- NOTE | 2018-03-21 02:40 | NURSING ---
PATIENT UP WALKING HALLS; WALKED ENTIRE UNIT X3 WITH ; TOLERATING WELL.
[2018-03-21] MEDS: Ibuprofen 400 MG Tablet PO ×5 (03:19→21:09)
[2018-03-21] MEDS: Lactated Ringers 1,000 ML 90 ML IV ×2 (05:26→17:11)
[2018-03-21 06:16] LABS: AST(SGOT) 15 U/L (15-37); Alanine Aminotransfer ALT/SGPT 25 U/L (16-61); Albumin, Serum 3.3 g/dL (3.2-5.0); Alkaline Phosphatase 60 U/L (45-117); Anion Gap 9 (5-15); BUN 9 mg/dL (7-18); BUN/Creat Ratio 7.1 RATIO (10-20); Calcium,Total 8.2 mg/dL (8.5-10.1); Chloride 105 mmol/L (98-107); Creatinine, Serum 1.27 mg/dL (0.70-1.30); EST Glomerular Filtration Rate 60 mL/min (>60); Est Glom Filt Rate - Afr Amer 73 mL/min (>60); Estimated Creatinine Clearance 60.11 ml/min; Globulin 3.2 g/dL (2.2-4.2); Glucose 124 mg/dL (74-106); Potassium 3.6 mmol/L (3.5-5.1); Protein, Total 6.5 g/dL (6.4-8.2); Sodium Level 141 mmol/L (136-145)
[2018-03-21 06:31] LABS: Absolute Lymphocyte Count 0.52 X10^3/ul (0.83-4.51); Absolute Neutrophil Count 7.7 X10^3/uL (2.0-7.7); Hematocrit 27.3 % (40-54); Hemoglobin 9.1 g/dl (13.0-16.5); Lymphocyte # 0.52 X10^3/ul (4.0); Lymphocyte % 5.5 % (19-41); Mean Corp Hgb Conc 33.3 g/gl (32-36); Mean Corpuscular Hgb 29.6 pg (27.0-32.0); Mean Corpuscular Volume 88.9 fL (80-94); Mean Platelet Vol. 8.7 fl (6.2-12.0); Monocyte# 1.31 X10^3/uL; Monocyte% 13.8 % (0-10); Neutrophil # 7.68 X10^3/uL (2.7-7.7); Neutrophil % 80.6 % (47-70); Platelet Count 185 K/mm3 (150-450); RBC Distribution Width CV 12.6 % (11.6-14.6); RBC Distribution Width SD 39.1 fl (35.1-43.9); Red Blood Count 3.07 M/mm3 (4.6-6.2); White Blood Count 9.5 K/mm3 (4.4-11.0)
[2018-03-21 06:32] LABS: Differential Indicated SCAN CRITERIA MET; POSITIVE COUNT NO; POSITIVE DIFFERENTIAL YES; POSITIVE MORPHOLOGY NO
[2018-03-21 07:38] VITALS: BP 132/74; PULSE 64; RESP 18; TEMP 37.2; O2SAT 96
[2018-03-21] MEDS: Aspirin E.C. 81 MG Tablet PO (07:42)
--- NOTE | 2018-03-21 08:01 | PCM.PN.SRG ---
Subjective: improved abdominal pain - Physical Exam General: Alert, Oriented x3 Lungs: Clear to auscultation, Normal air movement Cardiovascular: Regular rate, Regular Rhythm Abdomen: Soft, Tender - minimal tenderness at incisions, hypoactive to no bowel sounds Vital Signs Temp Pulse Resp BP Pulse Ox 98.9 F 64 18 132/74 H 96 03/21/18 07:38 03/21/18 07:38 03/21/18 07:38 03/21/18 07:38 03/21/18 07:38 Oxygen Flow Rate (L/min) 2 Oxygen Delivery Method Room Air Weight: 103.4 kg Body Mass Index (BMI) 31.8 Intake and Output for Last 24 Hours 03/19/18 03/20/18 03/21/18 23:59 23:59 23:59 Intake Total 3110 / 3110 1718 / 1718 Output Total 700 / 700 300 / 300 Balance 2410 / 2410 1418 / 1418 Laboratory Tests Past 24 Hrs 03/20/18 03/20/18 03/20/18 07:30 08:55 08:55 WBC 4.2 L RBC 3.46 L Hgb 10.2 L Hct 30.6 L MCV 88.4 MCH 29.5 MCHC 33.3 RDW 13.1 RDW Differential 41.8 Plt Count 183 MPV 8.8 Immature Gran % (Auto) 0.200 Neut % (Auto) 78.0 H Lymph % (Auto) 12.0 L [place] % (Auto) 8.2 Eos % (Auto) 1.4 Baso % (Auto) 0.2 Absolute Neuts (auto) 3.2 Absolute Lymphs (auto) 0.50 L Total Counted Not Reportable Differential Comment COMMENT Sodium Potassium Chloride Carbon Dioxide Anion Gap BUN Creatinine Estim Creat Clear Calc Est GFR (MDRD) Af Amer Est GFR (MDRD) Non-Af BUN/Creatinine Ratio Glucose Calcium Total Bilirubin AST ALT Alkaline Phosphatase Total Protein Albumin Globulin Albumin/Globulin Ratio Carcinoembryonic Ag Pending Blood Type O POSITIVE Antibody Screen NEGATIVE 03/20/18 03/21/18 03/21/18 14:40 05:28 05:28 WBC 7.0 9.5 RBC 3.13 L 3.07 L Hgb 9.2 L 9.1 L Hct 27.6 L 27.3 L MCV 88.2 88.9 MCH 29.4 29.6 MCHC 33.3 33.3 RDW 12.9 12.6 RDW Differential 41.5 39.1 Plt Count 142 L 185 MPV 8.6 8.7 Immature Gran % (Auto) 0.000 0.100 Neut % (Auto) 91.1 H 80.6 H Lymph % (Auto) 4.7 L 5.5 L [place] % (Auto) 4.1 13.8 H Eos % (Auto) 0.0 0.0 Baso % (Auto) 0.1 0.0 Absolute Neuts (auto) 6.4 7.7 Absolute Lymphs (auto) 0.33 L 0.52 L Total Counted Not Reportable Not Reportable Differential Comment Sodium 141 Potassium 3.6 Chloride 105 Carbon Dioxide 27.0 Anion Gap 9 BUN 9 Creatinine 1.27 Estim Creat Clear Calc 60.11 Est GFR (MDRD) Af Amer 73 Est GFR (MDRD) Non-Af 60 BUN/Creatinine Ratio 7.1 L Glucose 124 H Calcium 8.2 L Total Bilirubin 0.60 AST 15 ALT 25 Alkaline Phosphatase 60 Total Protein 6.5 Albumin 3.3 Globulin 3.2 Albumin/Globulin Ratio 1.0 Carcinoembryonic Ag Blood Type Antibody Screen Medical Necessity - Tobacco Use Smoking Status: Never smoker Assessment/Plan All Active Problems (Last Reviewed 03/14/18 @ 14:28 by Yonathan Pozo DO) GI bleed (Acute) Anemia (Acute) Colonic mass (Acute) Preop cardiovascular exam (Acute) Chest pain (Acute) NSTEMI (non-ST elevated myocardial infarction) (Acute) postoperative day #1 status post extended right hemicolectomy for 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 Patient complaining of minimal discomfort this morning, which is improved since his postoperative pain. He is doing a very good job of ambulating. I recommend utilization of incentive spirometer area. We will continue sips of sugar-based clear liquids until the patient has improved bowel function. Started on Lovenox given his diagnosis malignancy and his history of stent placement. I spoke with Dr. Plata by last night. Given his coronary disease. He was comfortable maintaining his hemoglobin above 9. His current hemoglobin is 9.1 this morning.
[2018-03-21] MEDS: Enoxaparin 40 MG/0.4 ML Syringe SC (09:57)
[2018-03-21 09:58] VITALS: PULSE 64
[2018-03-21] MEDS: Pantoprazole Sodium 20 MG Tablet PO ×2 (09:58→21:02)
[2018-03-21] MEDS: Lisinopril 20 MG Tablet PO (09:58)
[2018-03-21] MEDS: Isosorbide Mononitrate 30 MG Tablet PO (09:58)
[2018-03-21] MEDS: Metoprolol Tartrate 25 MG Tablet PO ×2 (09:58→21:02)
[2018-03-21 14:00] VITALS: BP 118/68; PULSE 66; RESP 16; TEMP 37.5; O2SAT 97
[2018-03-21 20:47] VITALS: BP 118/73; PULSE 69; RESP 16; TEMP 36.9; O2SAT 96
[2018-03-21] MEDS: Tamsulosin HCl 0.4 MG Capsule PO (21:01)
[2018-03-21 21:02] VITALS: BP 118/73; PULSE 69
[2018-03-21] MEDS: Fluticasone 0.05% 1 SPRAY NASAL.SRY 2 SPRAY NASAL (21:02)
--- NOTE | 2018-03-22 02:00 | NURSING ---
c/o nasal drainage. has scheduled Flonase. declined the need for any other intervention at this time.
[2018-03-22 02:04] VITALS: BP 120/82; PULSE 61; RESP 16; TEMP 36.8; O2SAT 97
[2018-03-22] MEDS: Ibuprofen 400 MG Tablet PO ×3 (03:07→22:32)
[2018-03-22] MEDS: Lactated Ringers 1,000 ML 90 ML IV ×2 (03:09→15:05)
[2018-03-22] MEDS: Ondansetron 4 MG/2 ML Vial IV (04:56)
[2018-03-22] MEDS: 0.9% NaCl Peripheral Flush Adult/Peds IV (04:57)
[2018-03-22] MEDS: Isosorbide Mononitrate 30 MG Tablet PO (08:09)
[2018-03-22] MEDS: Pantoprazole Sodium 20 MG Tablet PO ×2 (08:09→22:31)
[2018-03-22] MEDS: Aspirin E.C. 81 MG Tablet PO (08:09)
[2018-03-22] MEDS: Lisinopril 20 MG Tablet PO (08:09)
[2018-03-22 08:10] VITALS: BP 141/75; PULSE 67; RESP 16; TEMP 37.2; O2SAT 97
[2018-03-22] MEDS: Metoprolol Tartrate 25 MG Tablet PO ×2 (08:10→22:27)
[2018-03-22] MEDS: Enoxaparin 40 MG/0.4 ML Syringe SC (08:10)
--- NOTE | 2018-03-22 14:20 | CASEMGMT ---
SEE SHEN CHANEY LINK: D/C PLAN: Home. SHEN CHANEY Face to Face with patient for initial transition planning/care coordination assessment. RN RITU introduced self and role at [facility]. Patient resting in bed, alert and oriented. Patient willing to participate in assessment and answered questions appropriately. , who states is an RN, also in room with pt and answered questions as well. Care providers, pharmacy, and demographics verified. Pt wishes to discharge home and states he has no further needs or concerns at this time. CM to follow for discharge planning needs that may arise. Мария BSN RN CM
[2018-03-22 15:05] VITALS: BP 129/79; PULSE 68; RESP 18; TEMP 37.2; O2SAT 98
[2018-03-22 17:14] LABS: Carcinoembryonic Antigen 2.1 ng/mL (0.0-4.7)
--- NOTE | 2018-03-22 18:23 | PCM.PN.SRG ---
Subjective: no flatus - Physical Exam General: Alert, Oriented x3, Cooperative Lungs: Clear to auscultation, Normal air movement Cardiovascular: Regular rate, No murmurs Abdomen: Bowel Sounds Present, Soft, Non Tender Vital Signs Temp Pulse Resp BP Pulse Ox 98.9 F 68 18 129/79 H 98 03/22/18 15:05 03/22/18 15:05 03/22/18 15:05 03/22/18 15:05 03/22/18 15:05 Oxygen Flow Rate (L/min) 2 Oxygen Delivery Method Room Air Weight: 103.4 kg Body Mass Index (BMI) 31.8 Intake and Output for Last 24 Hours 03/20/18 03/21/18 03/22/18 23:59 23:59 23:59 Intake Total 3110 / 3110 3067 / 3067 2495 / 2495 Output Total 700 / 700 300 / 300 Balance 2410 / 2410 2767 / 2767 2495 / 2495 Laboratory Tests Past 24 Hrs 03/20/18 08:55 Carcinoembryonic Ag 2.1 Medical Necessity - Tobacco Use Smoking Status: Never smoker Assessment/Plan All Active Problems (Last Reviewed 03/14/18 @ 14:28 by Yonathan Pozo DO) GI bleed (Acute) Anemia (Acute) Colonic mass (Acute) Preop cardiovascular exam (Acute) Chest pain (Acute) NSTEMI (non-ST elevated myocardial infarction) (Acute) postoperative day #2 status post extended right hemicolectomy for 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 Patient complaining of minimal discomfort this morning, which is improved since his postoperative pain. He is doing a very good job of ambulating. I recommend utilization of incentive spirometer area. We will continue sips of sugar-based clear liquids until the patient has improved bowel function. Started on Lovenox given his diagnosis malignancy and his history of stent placement. I spoke with Dr. Grigsby, given his coronary disease - he was comfortable maintaining his hemoglobin above 9. His current hemoglobin is 9.1 yesterday morning.
[2018-03-22 20:14] VITALS: BP 132/81; PULSE 78; RESP 18; TEMP 36.8; O2SAT 97
[2018-03-22 22:27] VITALS: BP 141/76; PULSE 74
[2018-03-22] MEDS: Tamsulosin HCl 0.4 MG Capsule PO (22:30)
[2018-03-22] MEDS: Fluticasone 0.05% 1 SPRAY NASAL.SRY 2 SPRAY NASAL (22:31)
[2018-03-23] MEDS: Lactated Ringers 1,000 ML 90 ML IV (01:35)
[2018-03-23 02:14] VITALS: BP 135/88; PULSE 63; RESP 16; TEMP 36.8; O2SAT 97
[2018-03-23 08:32] VITALS: PULSE 78
[2018-03-23] MEDS: Pantoprazole Sodium 20 MG Tablet PO (08:32)
[2018-03-23] MEDS: Metoprolol Tartrate 25 MG Tablet PO (08:32)
[2018-03-23] MEDS: Isosorbide Mononitrate 30 MG Tablet PO (08:32)
[2018-03-23] MEDS: Aspirin E.C. 81 MG Tablet PO (08:32)
[2018-03-23] MEDS: Lisinopril 20 MG Tablet PO (08:32)
[2018-03-23] MEDS: Enoxaparin 40 MG/0.4 ML Syringe SC (08:33)
[2018-03-23 08:35] VITALS: BP 153/77; PULSE 81; RESP 16; TEMP 36.8; O2SAT 100
--- NOTE | 2018-03-23 13:39 | PCM.DC ---
You will use the following diet at home:: Full liquid - for a few days, then advance to regular Discharge Activity: Return to Normal Activity May shower in (days): 0 - now Call your doctor if your incision/area has: Increased Pain/ Swelling, Increased Redness, Foul Smelling Discharge, Swelling at the incision site Call your doctor if you observe: Fever of 101 or Higher, Inability to urinate, Inability to have a bowel movement, Uncontrolled pain Allergies/Adverse Reactions: Allergies omeprazole [From Prilosec] Adverse Reaction (Verified 03/19/18 11:59) lowers WBCs Medications to take at Discharge Psyllium [Metamucil] 1 packet PO DAILY 05/13/17 Rabeprazole Sodium [Aciphex] 20 mg PO BID 05/13/17 Tamsulosin HCl [Flomax] 0.4 mg PO QHS 05/13/17 atorvastatin 80 mg tablet 80 mg PO QHS 08/24/17 docusate sodium 100 mg capsule 100 mg PO BID 08/25/17 triamcinolone acetonide 55 mcg/actuation nasal spray,aerosol 2 spray INTRANASAL QHS 08/25/17 Glucosamine/MSM/Chondroitin A [Glucosamine Chondroit MSM Tab] 1 each PO DAILY 03/14/18 Polyethylene Glycol 3350 [Miralax] 17 gm PO DAILY 03/14/18 Aspirin E.C. [Ecotrin] 81 mg PO DAILY@0800 03/19/18 Isosorbide Mononitrate [Imdur] 30 mg PO DAILY 03/19/18 Lisinopril [Zestril] 20 mg PO DAILY 03/19/18 Metoprolol Tartrate [Lopressor (beta mandeep)] 25 mg PO BID 03/19/18 Primary Care Physician: Xavier El DO [Primary Care Provider] - Test Results: Test results from this visit will be discussed in further detail at your follow-up appointment, if applicable. Please Follow Up With: Luciano Ferreira MD When: Monday or
[2018-03-23 15:22] VITALS: BP 129/79; PULSE 67; RESP 18; TEMP 36.8; O2SAT 99
--- NOTE | 2018-03-24 04:01 | PCM.DC.SUM ---
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 He was found of a mid transverse colon cancer. He was discharged from the hospital last week had appropriate workup and was found to have no signs of metastatic disease. He returned for laparoscopic extended right hemicolectomy performed on March 20 after he had been off his anticoagulation for 5 days. Surgery was somewhat protracted due to the location of the tumor and rather significant mobilization of the transverse colon was required. The patient did well postoperatively had return of bowel function and tolerating a diet by postoperative day 3. He was discharged home with plans to follow-up in my office. Discharge Activity: Return to Normal Activity May shower in (days): 0 - now Call your doctor if your incision/area has: Increased Pain/ Swelling, Increased Redness, Foul Smelling Discharge, Swelling at the incision site Call your doctor if you observe: Fever of 101 or Higher, Inability to urinate, Inability to have a bowel movement, Uncontrolled pain Home Medications: Medications to take at Discharge Psyllium [Metamucil] 1 packet PO DAILY 05/13/17 Rabeprazole Sodium [Aciphex] 20 mg PO BID 05/13/17 Tamsulosin HCl [Flomax] 0.4 mg PO QHS 05/13/17 atorvastatin 80 mg tablet 80 mg PO QHS 08/24/17 Glucosamine/MSM/Chondroitin A [Glucosamine Chondroit MSM Tab] 1 each PO DAILY 03/14/18 Aspirin E.C. [Ecotrin] 81 mg PO DAILY@0800 03/19/18 Isosorbide Mononitrate [Imdur] 30 mg PO DAILY 03/19/18 Lisinopril [Zestril] 20 mg PO DAILY 03/19/18 Metoprolol Tartrate [Lopressor (beta mandeep)] 25 mg PO BID 03/19/18 Fluticasone 0.05% [Flonase Nasal [place]] 2 spray NASAL QHS nasal.sry 03/23/18 Ibuprofen [Motrin] 400 mg PO Q4H PRN PRN tablet 03/23/18 Primary Care Physician: Xavier El DO [Primary Care Provider] - Please Follow Up With: Luciano Ferreira MD When: Monday or Medical Necessity - Tobacco Use Smoking Status: Never smoker Meaningful Use Info Meaningful Use Diagnoses (Choose all that apply): None applicable
== END 2018-03-23 17:33 | disposition home or self-care (01) | DRG 331 ==
LOC: ACINP 07:04 → MS3 12:58
PROVIDERS: Admitting Provider Surgery; Family Provider Preventive Medicine Occupational Medicine; PCP Preventive Medicine Occupational Medicine; Visit Provider Surgery
PROC: 0DTF4ZZ Resection of Right Large Intestine, Percutaneous Endoscopic Approach (ICD-10-PCS; principal; 2018-03-20 08:40)
DX: C18.4 Malignant neoplasm of transverse colon (principal); K42.9 Umbilical hernia without obstruction or gangrene; I25.10 Atherosclerotic heart disease of native coronary artery without angina pectoris; I10 Essential (primary) hypertension; E78.5 Hyperlipidemia, unspecified; Z95.5 Presence of coronary angioplasty implant and graft; I25.2 Old myocardial infarction; N40.0 Benign prostatic hyperplasia without lower urinary tract symptoms
CPT/HCPCS: 36415; 80053; 82378; 85025; 86850; 86900; 88302; 88309; 88341; 88342; J7120; A4216; J2405

== ENCOUNTER → 2018-04-18 11:47 | Outpatient (CLI) | payer MEDICARE, SELFPAY ==
[2017-05-15 11:53] VITALS: BMI 35.6
[2018-04-18 14:56] LABS: Absolute Lymphocyte Count 0.98 X10^3/ul (0.83-4.51); Absolute Neutrophil Count 2.7 X10^3/uL (2.0-7.7); Basophil# 0.02 X10^3/uL; Basophil% 0.5 % (0-1); Eosinophil# 0.09 X10^3/uL; Eosinophils% 2.1 % (0-5); Hematocrit 30.5 % (40-54); Hemoglobin 9.8 g/dl (13.0-16.5); Lymphocyte # 0.98 X10^3/ul (4.0); Lymphocyte % 22.8 % (19-41); Mean Corp Hgb Conc 32.1 g/gl (32-36); Mean Corpuscular Hgb 27.3 pg (27.0-32.0); Mean Platelet Vol. 9.6 fl (6.2-12.0); Monocyte% 11.6 % (0-10); Neutrophil # 2.71 X10^3/uL (2.7-7.7); POSITIVE COUNT NO; POSITIVE DIFFERENTIAL NO; POSITIVE MORPHOLOGY NO; Platelet Count 189 K/mm3 (150-450); RBC Distribution Width CV 12.7 % (11.6-14.6); RBC Distribution Width SD 37.7 fl (35.1-43.9); Red Blood Count 3.59 M/mm3 (4.6-6.2); White Blood Count 4.3 K/mm3 (4.4-11.0)
[2018-04-18 15:06] LABS: ALB/GLOB Ratio 1.1 RATIO (0.9-2.4); AST(SGOT) 16 U/L (15-37); Alanine Aminotransfer ALT/SGPT 28 U/L (16-61); Albumin, Serum 3.9 g/dL (3.2-5.0); Alkaline Phosphatase 78 U/L (45-117); Anion Gap 7 (5-15); BUN 12 mg/dL (7-18); Calcium,Total 8.7 mg/dL (8.5-10.1); Chloride 106 mmol/L (98-107); Creatinine, Serum 1.09 mg/dL (0.70-1.30); EST Glomerular Filtration Rate 72 mL/min (>60); Est Glom Filt Rate - Afr Amer 87 mL/min (>60); Globulin 3.5 g/dL (2.2-4.2); Glucose 76 mg/dL (74-106); Potassium 3.5 mmol/L (3.5-5.1); Protein, Total 7.4 g/dL (6.4-8.2); Sodium Level 140 mmol/L (136-145)
== END ==
PROVIDERS: Family Provider Preventive Medicine Occupational Medicine; PCP Preventive Medicine Occupational Medicine; Visit Provider Internal Medicine Hematology & Oncology
DX: C18.0 Malignant neoplasm of cecum (principal)
CPT/HCPCS: 36415; 80053; 85025

== ENCOUNTER → 2018-04-20 15:48 | Outpatient (CLI) | payer MEDICARE, SELFPAY ==
[2017-05-15 11:53] VITALS: BMI 35.6
[2018-04-20 16:23] LABS: Ferritin 12 ng/mL (26-388); Iron 26 ug/dL (65-175); Iron Binding Capacity,Total 379 ug/dL (250-450)
== END ==
PROVIDERS: Visit Provider Internal Medicine Hematology & Oncology
DX: C18.0 Malignant neoplasm of cecum (principal); C77.2 Secondary and unspecified malignant neoplasm of intra-abdominal lymph nodes; D50.0 Iron deficiency anemia secondary to blood loss (chronic)
CPT/HCPCS: 82728; 83540; 83550

== ENCOUNTER → 2018-05-14 09:22 | Outpatient (CLI) | payer MEDICARE, SELFPAY ==
[2017-05-15 11:53] VITALS: BMI 35.6
[2018-05-14 09:53] LABS: Absolute Lymphocyte Count 0.64 X10^3/ul (0.83-4.51); Absolute Neutrophil Count 1.9 X10^3/uL (2.0-7.7); Basophil# 0.01 X10^3/uL; Basophil% 0.3 % (0-1); Eosinophil# 0.05 X10^3/uL; Eosinophils% 1.7 % (0-5); Hematocrit 34.2 % (40-54); Lymphocyte # 0.64 X10^3/ul (4.0); Lymphocyte % 21.3 % (19-41); Mean Corp Hgb Conc 32.2 g/gl (32-36); Mean Corpuscular Hgb 27.8 pg (27.0-32.0); Mean Corpuscular Volume 86.6 fL (80-94); Mean Platelet Vol. 8.2 fl (6.2-12.0); Monocyte# 0.44 X10^3/uL; Monocyte% 14.6 % (0-10); Neutrophil # 1.85 X10^3/uL (2.7-7.7); Neutrophil % 61.4 % (47-70); Platelet Count 202 K/mm3 (150-450); RBC Distribution Width SD 41.7 fl (35.1-43.9); Red Blood Count 3.95 M/mm3 (4.6-6.2)
[2018-05-14 09:56] LABS: POSITIVE COUNT NO; POSITIVE DIFFERENTIAL NO; POSITIVE MORPHOLOGY NO
[2018-05-14 10:13] LABS: ALB/GLOB Ratio 1.1 RATIO (0.9-2.4); AST(SGOT) 26 U/L (15-37); Alanine Aminotransfer ALT/SGPT 43 U/L (16-61); Albumin, Serum 3.8 g/dL (3.2-5.0); Alkaline Phosphatase 87 U/L (45-117); Anion Gap 12 (5-15); BUN 9 mg/dL (7-18); BUN/Creat Ratio 8.3 RATIO (10-20); Calcium,Total 8.5 mg/dL (8.5-10.1); Chloride 106 mmol/L (98-107); Creatinine, Serum 1.09 mg/dL (0.70-1.30); EST Glomerular Filtration Rate 72 mL/min (>60); Est Glom Filt Rate - Afr Amer 87 mL/min (>60); Globulin 3.5 g/dL (2.2-4.2); Glucose 133 mg/dL (74-106); Potassium 3.8 mmol/L (3.5-5.1); Protein, Total 7.3 g/dL (6.4-8.2); Sodium Level 143 mmol/L (136-145)
== END ==
PROVIDERS: Family Provider Preventive Medicine Occupational Medicine; PCP Preventive Medicine Occupational Medicine; Visit Provider Internal Medicine Hematology & Oncology
DX: C18.0 Malignant neoplasm of cecum (principal)
CPT/HCPCS: 36415; 80053; 85025

== ENCOUNTER 2018-05-16 16:55 | Observation (INO) | payer MEDICARE, SELFPAY ==
[2017-05-15 11:53] VITALS: BMI 35.6
[2018-05-16] VITALS (9 sets, daily range): BP systolic 130–169; BP diastolic 70–85; PULSE 38–70; RESP 14–18; TEMP 36.6; O2SAT 96–98; BMI 31.1; BMI 31.6
[2018-05-16 17:53] LABS: Absolute Lymphocyte Count 0.35 X10^3/ul (0.83-4.51); Absolute Neutrophil Count 3.2 X10^3/uL (2.0-7.7); Eosinophil# 0.01 X10^3/uL; Eosinophils% 0.3 % (0-5); Hematocrit 35.1 % (40-54); Hemoglobin 11.1 g/dl (13.0-16.5); Lymphocyte # 0.35 X10^3/ul (4.0); Lymphocyte % 9.6 % (19-41); Mean Corp Hgb Conc 31.6 g/gl (32-36); Mean Corpuscular Hgb 27.5 pg (27.0-32.0); Mean Corpuscular Volume 86.9 fL (80-94); Mean Platelet Vol. 8.3 fl (6.2-12.0); Monocyte# 0.05 X10^3/uL; Monocyte% 1.4 % (0-10); Neutrophil # 3.24 X10^3/uL (2.7-7.7); Neutrophil % 88.7 % (47-70); Platelet Count 147 K/mm3 (150-450); RBC Distribution Width CV 19.3 % (11.6-14.6); RBC Distribution Width SD 46.5 fl (35.1-43.9); Red Blood Count 4.04 M/mm3 (4.6-6.2); White Blood Count 3.7 K/mm3 (4.4-11.0)
[2018-05-16] MEDS: DiphenhydrAMINE 50 MG/ML Syringe 25 MG IV (17:54)
[2018-05-16] MEDS: MethylPREDNISolone 125 MG/2 ML Vial IV (17:54)
[2018-05-16 17:56] LABS: Differential Indicated SCAN CRITERIA MET; POSITIVE COUNT NO; POSITIVE DIFFERENTIAL YES; POSITIVE MORPHOLOGY NO
[2018-05-16 18:03] LABS: Anion Gap 11 (5-15); BUN 10 mg/dL (7-18); BUN/Creat Ratio 8.9 RATIO (10-20); Calcium,Total 8.5 mg/dL (8.5-10.1); Chloride 107 mmol/L (98-107); Creatinine, Serum 1.12 mg/dL (0.70-1.30); EST Glomerular Filtration Rate 69 mL/min (>60); Est Glom Filt Rate - Afr Amer 84 mL/min (>60); Estimated Creatinine Clearance 66.08 ml/min; Glucose 176 mg/dL (74-106); Potassium 3.6 mmol/L (3.5-5.1); Sodium Level 141 mmol/L (136-145)
[2018-05-16 18:23] LABS: Differential Comment SCANNED
--- NOTE | 2018-05-16 18:29 | ED.DCSUM_ITS ---
- ER Visit Summary Date of Service: 05/16/18 Chief Complaint: Reaction to chemotherapy History of Present Illness: The patient is a 68 M presenting with bilateral hand and feet paresthesias. This started just after his second round of chemotherapy today. He has a history of colon cancer which has been resected and is receiving adjunctive chemotherapy. His oncologist is Dr. Ramos. He states initially he had paresthesias in his hands and feet and this then traveled to his chest and throat. Dr. Ramos was concerned about cold-induced neuropathy from the chemotherapy versus allergic reaction. He denies difficulty breathing. Complains of generalized weakness and dizziness. Physical Examination: Vitals are stable. Patient is afebrile. Alert no acute distress. HEENT exam is unremarkable. No tongue swelling or pharyngeal edema Neck is supple. Lungs are clear and equal bilaterally. Heart is regular rate and rhythm. Abdomen is soft nontender nondistended. Extremities are unremarkable. Skin is warm and dry. No rash No focal neurologic deficit. Remainder of exam is unremarkable. Emergency Department Course and Treatment: EKG is sinus bradycardia rate of 54. Patient was given Solu-Medrol and Benadryl IV. CBC shows white count 3.7, hemoglobin 11.1, platelets 147. Chemistries unremarkable other than glucose 176. Troponin is negative. Chest x-ray shows no acute process. Discussed with Dr. Hawkins who recommends checking a magnesium level as well as observation. Discussed with the hospitalist for observation Disposition: Observation Impression: Cold induced neuropathy, history of colon cancer This note was generated with [employer] dictation software. It may contain incorrect words, spelling, and punctuation that were not noted in review of the chart prior to signing ED Disposition - Plan for ED Patient: Disposition: Acute Care Hospital [facility] Chief Complaint: Allergic Reaction
[2018-05-16 18:52] LABS: Magnesium 2.3 mg/dL (1.6-2.6)
--- NOTE | 2018-05-16 19:41 | PCM.HP.STD ---
Problem List (1) Cold induced neuropathy Status: Acute (2) Pancytopenia Status: Chronic (3) Adenocarcinoma of cecum Status: Chronic (4) GI bleed Status: Chronic Qualifiers: GI bleed type/associated pathology: unspecified gastrointestinal hemorrhage type Qualified Code(s): K92.2 - Gastrointestinal hemorrhage, unspecified (5) Atherosclerotic heart disease of [place] coronary artery without angina pectoris Status: Chronic Qualifiers: [place] vs. transplanted heart: [place] heart Qualified Code(s): I25.10 - Atherosclerotic heart disease of [place] coronary artery without angina pectoris; I25.10 - Atherosclerotic heart disease of [place] coronary artery without angina pectoris; I25.10 - Atherosclerotic heart disease of [place] coronary artery without angina pectoris Comment: PTCA/JAYLIN of Prox RCA 05/15/17 (6) NSTEMI (non-ST elevated myocardial infarction) Status: Chronic (7) HTN (hypertension) Status: Chronic Qualifiers: Hypertension type: essential hypertension Qualified Code(s): I10 - Essential (primary) hypertension (8) HLD (hyperlipidemia) Status: Chronic Qualifiers: Hyperlipidemia type: pure hypercholesterolemia Qualified Code(s): E78.00 - Pure hypercholesterolemia, unspecified; E78.0 - Pure hypercholesterolemia (9) Peptic ulcer disease Status: Chronic History of Present Illness Date of Admission: 05/16/18 Chief Complaint: Neuropathy worsening after chemotherapy round The patient is a 68 y/o M w/ PMHx: CAD s/p NSTEMI, PCI RCA 04/2017, HTN, HLD, BPH, Hx Hyperglycemia w/ 03/15/18 5.9% HgbA1c, PUD/GERD, Chronic constipation, 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 Ramos, s/p 03/[address] Ferreira who presents to the [facility] ED on 05/16/[address] Ramos recommendation as patient had 2nd round oxaliplatin and following onset severe BL LE and UE as well as upper chest and throat sharp pins and needles neuropathic pain. He notes the first time he only had minimal pain in his hands and feet but this quickly subsided however today following his treatments upon standing he had severe discomfort in both lower and upper extremities feet up toward his knees and as well as hands up to his elbows and did not improve upon return to his home. At home he attempted to eat and had intake of suspected colder fluids with onset following severe discomfort in his throat with similar sensation of pins and needles and pain. Dr. 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 Workup in the ED included T 98, heart rate 70, BP 169/85, respiratory rate 16, 97% on room air, CBC with WBC 3.7, hemoglobin 11.1, platelet 147, ANC 3.2, BMP with glucose 176, calcium 8.5, magnesium 2.3, troponin less than 0.015, chest x-ray unremarkable, EKG no acute evidence of ischemia. In the ED patient administered Benadryl and Solu-Medrol. Past Medical History Past Medical History (Chronic Problems): Chronic Problems (Last Reviewed 04/18/18 @ 11:03 by Ramya Fatima) Pancytopenia (Chronic) Adenocarcinoma of cecum (Chronic) Presence of stent in coronary artery (Chronic ~05/15/17) PTCA/JAYLIN of Prox RCA 05/15/17 GI bleed (Chronic) Hyperlipemia, mixed (Chronic) Atherosclerotic heart disease of [place] coronary artery without angina pectoris (Chronic) PTCA/JAYLIN of Prox RCA 05/15/17 NSTEMI (non-ST elevated myocardial infarction) (Chronic) HTN (hypertension) (Chronic) HLD (hyperlipidemia) (Chronic) Peptic ulcer disease (Chronic) Medical History: Medical History (Last Reviewed 04/18/18 @ 11:03 by Ramya Fatima) Presence of stent in coronary artery (Chronic) Onset Date: ~05/15/17 Z95.5 PTCA/JAYLIN of Prox RCA 05/15/17 Hyperlipemia, mixed (Chronic) E78.2 Atherosclerotic heart disease of [place] coronary artery without angina pectoris (Chronic) I25.10 PTCA/JAYLIN of Prox RCA 05/15/17 Chest pain (Acute) R07.9 NSTEMI (non-ST elevated myocardial infarction) (Acute) I21.4 HTN (hypertension) (Chronic) I10 Peptic ulcer disease (Chronic) K27.9 BPH (benign prostatic hyperplasia) N40.0 Cancer of transverse colon C18.4 GERD (gastroesophageal reflux disease) K21.9 Hyperglycemia R73.9 Allergies omeprazole [From Prilosec] Adverse Reaction (Verified 04/18/18 10:59) lowers WBCs Home Medications: Ambulatory Orders Medication Instructions Recorded Psyllium [Metamucil] 1 packet PO DAILY 05/13/17 Rabeprazole Sodium [Aciphex] 20 mg PO BID 05/13/17 Tamsulosin HCl [Flomax] 0.4 mg PO QHS 05/13/17 atorvastatin 80 mg tablet 80 mg PO QHS 08/24/17 Glucosamine/MSM/Chondroitin A 1 ea PO DAILY 03/14/18 [Glucosamine Chondroit MSM Tab] Aspirin E.C. [Ecotrin] 81 mg PO DAILY@0800 03/19/18 Isosorbide Mononitrate [Imdur] 30 mg PO DAILY 03/19/18 Lisinopril [Zestril] 20 mg PO DAILY 03/19/18 Metoprolol Tartrate [Lopressor 25 mg PO BID 03/19/18 (beta mandeep)] Ibuprofen [Motrin] 400 mg PO Q4H PRN PRN tab 03/23/18 tizanidine 4 mg tablet 4 mg PO TID PRN 04/18/18 triamcinolone acetonide 55 mcg 2 spray INTRANASAL QDAY 04/18/18 nasal spray aerosol Surgical History: Surgical History (Last Reviewed 04/18/18 @ 11:03 by Ramya Fatima) H/O removal of cyst Z98.890 History of left heart catheterization Z98.890 PTCA/JAYLIN of proximal RCA 05/15/17 History of rectal surgery Z98.890 Kidney stone removal Postsurgical percutaneous transluminal coronary angioplasty (PTCA) status Onset Date: ~05/15/17 Z98.61 PTCA/JAYLIN of Prox RCA 05/15/17 Right eye surgery S/P right hemicolectomy Z90.49 History of percutaneous coronary intervention Z98.890 PTCA/JAYLIN of proximal RCA 05/15/17 Surgical History: - - kidney stone removal w/ stent, rectal surgery, laser eye surgery, right wrist cyst removed, right hemicolectomy, PCI x 1. Psychiatric History: No pertinent psych hx Lives: Spouse/ Significant Other Smoking Status: Never smoker Alcohol: None Drugs: None - *Family History Paternal Family History: Family History (Last Reviewed 04/18/18 @ 11:03 by Ramya Fatima) Father CAD (coronary artery disease) Mother CAD (coronary artery disease) History Items: Heart Disease Maternal Family History: Family History (Last Reviewed 04/18/18 @ 11:03 by Ramya Fatima) Father CAD (coronary artery disease) Mother CAD (coronary artery disease) History Items: Heart Disease Review of Systems Constitutional: Reports: Malaise, Weakness, Fatigue. Denies: Chills, Fever, Weight Change HEENT: Reports: Sore Throat. Denies: Head Aches, Sinus Congestion, Sinus Drainage Cardiovascular: Reports: Chest Pain. Denies: Palpitations Respiratory: Denies: Cough, Shortness of breath at rest, Sputum production Gastrointestinal: Denies: Abdominal Pain, Nausea, Vomiting Genitourinary: Denies: Dysuria Musculoskeletal: Reports: Hand Pain, Leg Pain. Denies: Joint Pain, Joint Tenderness Skin: Denies: Rash, Wounds Neurological: Reports: Numbness, Tingling. Denies: Focal weakness Psychiatric: Denies: Anxiety, Depression, Homicidal Ideations, Suicidal Ideations Hematologic/ Lymphatic: Reports: Anemia. Denies: Easy Bruising, Easy Bleeding VTE Information - Inpt Only VTE Present on Admission: No VTE Mechan Device Prophylaxis: SCD's VTE Pharm Prophylaxis ordered?: Yes Patient Problems: Active and Suspected Problems (Last Reviewed 04/18/18 @ 11:03 by Ramya Fatima) Cold induced neuropathy (Acute) Subjective: Seated upright in the ED bed, fatigued appearance, notes BL LE and UE paresthesias/neuropathy improved, still some sensation in his throat. Objective: Physical Examination: General: awake, alert, oriented x 3 and cooperative, seated upright in the ED bed in no apparent distress, fatigued appearance. Skin: mildly pale color, turgor, no icterus, cyanosis. HEENT: AT/NC, EOMI, PERRLA, dry MM, no carotid bruits or JVD noted, airway patent, no obstruction or edema noted, breathing well. Lungs: CTA bilaterally, moderate effort, mild decrease BL bases, no rales, ronchi or wheezing. Heart: Regular rate and rhythm; no gallop, rub audible. Abdomen: soft, obese, healed incisions s/p R hemicolectomy, NTTP, ND, normal BS, no HSM. Extremities: no cyanosis, clubbing, or edema. Neurological: patient awake, alert, oriented x 3; cognitive function intact; pupils equally reactive to light and accomodation; cranial nerves II-XII grossly normal, moving all 4 extremities, no focal deficits, strength moderately globally decreased, improved/lessened paresthesias to BL UE and LE. Psychiatric: affect appears normal, no acute evidence of depressive or anxiety feelings. - Physical Exam Vital Signs Temp Pulse Resp BP Pulse Ox 98 F 70 16 169/85 H 97 05/16/18 16:57 05/16/18 16:57 05/16/18 16:57 05/16/18 16:57 05/16/18 16:57 Oxygen Delivery Method Room Air Weight: 220 lb Body Mass Index (BMI) 31.1 Laboratory Tests Past 24 Hrs 05/16/18 05/16/18 05/16/18 17:22 17:35 17:35 WBC 3.7 L RBC 4.04 L Hgb 11.1 L Hct 35.1 L MCV 86.9 MCH 27.5 MCHC 31.6 L RDW 19.3 H RDW Differential 46.5 H Plt Count 147 L MPV 8.3 Immature Gran % (Auto) 0.000 Neut % (Auto) 88.7 H Lymph % (Auto) 9.6 L [place] % (Auto) 1.4 Eos % (Auto) 0.3 Baso % (Auto) 0.0 Absolute Neuts (auto) 3.2 Absolute Lymphs (auto) 0.35 L Total Counted Not Reportable Differential Comment SCANNED Sodium 141 Potassium 3.6 Chloride 107 Carbon Dioxide 23.0 Anion Gap 11 BUN 10 Creatinine 1.12 Estim Creat Clear Calc 66.08 Est GFR (MDRD) Af Amer 84 Est GFR (MDRD) Non-Af 69 BUN/Creatinine Ratio 8.9 L Glucose 176 H Calcium 8.5 Magnesium 2.3 Troponin I < 0.015 Assessment/Plan All Active Problems (Last Reviewed 04/18/18 @ 11:03 by Ramya Fatima) Cold induced neuropathy (Acute) Anemia (Acute) Colonic mass (Acute) Preop cardiovascular exam (Acute) Chest pain (Acute) The patient is a 68 y/o M w/ PMHx: CAD s/p NSTEMI, PCI RCA 04/2017, HTN, HLD, BPH, Hx Hyperglycemia w/ 03/15/18 5.9% HgbA1c, PUD/GERD, Chronic constipation, Recent Dx adenocarcinoma of the cecum following w/ Dr. Ramos, s/p 03/[address] Ferreira who presents to the [facility] ED on 05/16/[address] Ramos recommendation as patient had 2nd round oxaliplatin and following onset severe BL LE and UE as well as upper chest and throat sharp pins and needles neuropathic pain. (1) Allergic Reaction, Cold Induced Neuropathy: Secondary to oxaliplatin, 2nd round on day of ED presentation, Oncology recommendation for treatment, will admit to PCU, maintain on telemetry, continue treatment w/ IV PPI, IV benadril and IV solumedrol, maintain on heated IVFs, allow oral intake warm-hot ONLY to avoid worsened reaction. Pending oncology evaluation. Allow diet if able to tolerate given neuropathy sensation in the throat, airway patent, breathing appropriate. (2) Recent Dx adenocarcinoma of the cecum: Noted pT3Na1 low risk stage IIIa, following w/ Dr. Ramos, s/p 03/[address] Dr. Ferreira, Dr. Ramos consulted, mag normal, phos pending, calcium normal. Continue home BID oral regimen. Add zyprexa given severe nausea after regimen per Dr. Ramos recommendation. Pending Oncology evaluation given #1. (3) CAD: s/p NSTEMI, PCI RCA 04/2017, will continue home regimen asa, off plavix following R hemicolectomy and onset chemotherapy, continue home statin, BB. (4) Hypertension: Continue home regimen including isosorbide, metoprolol, holding lisinopril given atypical allergic reaction presentation although suspected secondary to chemotherapy with cold-induced neuropathy, PRN hydralazine. (5) Hyperlipidemia: Continue home statin regimen. (6) Hyperglycemia: Admission glucose 176, similar to prior presentations, recent 03/15/18 5.9% HgbA1c. (7) Obesity: Weight loss and lifestyle changes encouraged. (8) PUD/GERD: IV PPI as noted, monitor for WBC decrease and change to famotidine if needed. (9) DVT prophylaxis: SCD, Lovenox with hold as needed given mild pancytopenia and prior history GI bleed. Code Visit Inpatient E&M: 50012 Init Hosp L3
[2018-05-16 20:56] LABS: Phosphorus 1.3 mg/dL (2.5-4.9)
[2018-05-16] MEDS: 0.9% Normal Saline 1,000 ML 100 ML IV (21:46)
[2018-05-16] MEDS: Tamsulosin HCl 0.4 MG Capsule PO (21:47)
[2018-05-16] MEDS: Atorvastatin Calcium 80 MG Tablet PO (21:47)
[2018-05-16] MEDS: OLANZapine 2.5 MG Tablet PO (21:48)
[2018-05-16] MEDS: Metoprolol Tartrate 25 MG Tablet PO (21:48)
[2018-05-17] VITALS (8 sets, daily range): BP systolic 124–149; BP diastolic 68–86; PULSE 52–75; RESP 16; TEMP 36.5–36.7; O2SAT 93–98
[2018-05-17] MEDS: 0.9% Normal Saline 1,000 ML 100 ML IV (05:42)
[2018-05-17 06:47] LABS: Absolute Lymphocyte Count 0.49 X10^3/ul (0.83-4.51); Absolute Neutrophil Count 6.3 X10^3/uL (2.0-7.7); Hematocrit 34.7 % (40-54); Hemoglobin 11.3 g/dl (13.0-16.5); Lymphocyte # 0.49 X10^3/ul (4.0); Lymphocyte % 7.1 % (19-41); Mean Corp Hgb Conc 32.6 g/gl (32-36); Mean Corpuscular Volume 85.9 fL (80-94); Mean Platelet Vol. 8.6 fl (6.2-12.0); Monocyte# 0.12 X10^3/uL; Monocyte% 1.7 % (0-10); Neutrophil # 6.28 X10^3/uL (2.7-7.7); Neutrophil % 91.1 % (47-70); Platelet Count 169 K/mm3 (150-450); RBC Distribution Width CV 19.4 % (11.6-14.6); RBC Distribution Width SD 47.6 fl (35.1-43.9); Red Blood Count 4.04 M/mm3 (4.6-6.2); White Blood Count 6.9 K/mm3 (4.4-11.0)
[2018-05-17 06:48] LABS: Differential Indicated SCAN CRITERIA MET; POSITIVE COUNT NO; POSITIVE DIFFERENTIAL YES; POSITIVE MORPHOLOGY NO
[2018-05-17 06:59] LABS: ALB/GLOB Ratio 1.1 RATIO (0.9-2.4); AST(SGOT) 24 U/L (15-37); Alanine Aminotransfer ALT/SGPT 40 U/L (16-61); Albumin, Serum 3.6 g/dL (3.2-5.0); Alkaline Phosphatase 83 U/L (45-117); Anion Gap 12 (5-15); BUN 11 mg/dL (7-18); BUN/Creat Ratio 10.2 RATIO (10-20); Calcium,Total 8.5 mg/dL (8.5-10.1); Chloride 108 mmol/L (98-107); Creatinine, Serum 1.08 mg/dL (0.70-1.30); EST Glomerular Filtration Rate 72 mL/min (>60); Est Glom Filt Rate - Afr Amer 88 mL/min (>60); Estimated Creatinine Clearance 68.53 ml/min; Globulin 3.4 g/dL (2.2-4.2); Glucose 128 mg/dL (74-106); Sodium Level 143 mmol/L (136-145)
--- NOTE | 2018-05-17 08:03 | PCM.CONS.B ---
Problem List (1) Anemia Status: Chronic Qualifiers: Anemia type: unspecified type Qualified Code(s): D64.9 - Anemia, unspecified Comment: Chemotherapy (2) Cold induced neuropathy Status: Acute (3) Adenocarcinoma of cecum Status: Chronic - Consult Date of Consult: 05/17/18 Consultation was requested by Dr. 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 My final recommendation will be communicated to the nursing staff, patient and also by electronic medical records. - Reason for Consult istory of Present Illness Date of Admission: 05/16/18 Chief Complaint: Neuropathy worsening after chemotherapy. 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 Ferreira who presents to the [facility] ED on 05/16/18. During his first cycle of chemotherapy (Oxaliplatin / Xeloda), patient did experience cold induced neuropathy for several days after his chemotherapy treatment. During his 2nd round oxaliplatin,he had acute onset severe BL LE and UE as well as upper chest and throat sharp pins and needles neuropathic pain. He notes the first time he only had minimal pain in his hands and feet but this quickly subsided. He had severe pain upon standing with discomfort in both lower and upper extremities feet up toward his knees and as well as hands up to his elbows and did not improve upon return to his home. At home, he attempted to eat and had intake of suspected colder fluids with onset following severe discomfort in his throat with similar sensation of pins and needles. Has no difficulty breathing or any mucosal swelling. Dr. aRmos was notified and recommended that patient presented to the emergency room for allergic reaction versus cold induced neuropathy secondary to Oxaliplatin. Workup in the ED included T 98, heart rate 70, BP 169/85, respiratory rate 16, 97% on room air, CBC with WBC 3.7, hemoglobin 11.1, platelet 147, ANC 3.2, BMP with glucose 176, calcium 8.5, magnesium 2.3, troponin less than 0.015, chest x-ray unremarkable, EKG no acute evidence of ischemia. In the ED patient administered Benadryl and Solu-Medrol. Warm IV fluid was given peripherally. He was admitted and observe overnight for any reaction. This morning his pain had subsided, he still experienced some numbness in his feet, hand and throat. He denies any sharp neuropathic pain, cough, chest pain or shortness of breath. He denies hoarseness or difficulty swallowing. No fever, nausea, vomiting or diarrhea. Past Medical History Past Medical History (Chronic Problems): Chronic Problems (Last Reviewed 04/18/18 @ 11:03 by Ramya Fatima) Pancytopenia (Chronic) Adenocarcinoma of cecum (Chronic) Presence of stent in coronary artery (Chronic ~05/15/17) PTCA/JAYLIN of Prox RCA 05/15/17 GI bleed (Chronic) Hyperlipemia, mixed (Chronic) Atherosclerotic heart disease of [place] coronary artery without angina pectoris (Chronic) PTCA/JAYLIN of Prox RCA 05/15/17 NSTEMI (non-ST elevated myocardial infarction) (Chronic) HTN (hypertension) (Chronic) HLD (hyperlipidemia) (Chronic) Peptic ulcer disease (Chronic) Medical History: Medical History (Last Reviewed 04/18/18 @ 11:03 by Ramya Fatima) Presence of stent in coronary artery (Chronic) Onset Date: ~05/15/17 Z95.5 PTCA/JAYLIN of Prox RCA 05/15/17 Hyperlipemia, mixed (Chronic) E78.2 Atherosclerotic heart disease of [place] coronary artery without angina pectoris (Chronic) I25.10 PTCA/JAYLIN of Prox RCA 05/15/17 Chest pain (Acute) R07.9 NSTEMI (non-ST elevated myocardial infarction) (Acute) I21.4 HTN (hypertension) (Chronic) I10 Peptic ulcer disease (Chronic) K27.9 BPH (benign prostatic hyperplasia) N40.0 Cancer of transverse colon C18.4 GERD (gastroesophageal reflux disease) K21.9 Hyperglycemia R73.9 Allergies omeprazole [From Prilosec] Adverse Reaction (Verified 04/18/18 10:59) lowers WBCs Home Medications: Ambulatory Orders Medication Instructions Recorded Psyllium [Metamucil] 1 packet PO DAILY 05/13/17 Rabeprazole Sodium [Aciphex] 20 mg PO BID 05/13/17 Tamsulosin HCl [Flomax] 0.4 mg PO QHS 05/13/17 atorvastatin 80 mg tablet 80 mg PO QHS 08/24/17 Glucosamine/MSM/Chondroitin A 1 ea PO DAILY 03/14/18 [Glucosamine Chondroit MSM Tab] Aspirin E.C. [Ecotrin] 81 mg PO DAILY@0800 03/19/18 Isosorbide Mononitrate [Imdur] 30 mg PO DAILY 03/19/18 Lisinopril [Zestril] 20 mg PO DAILY 03/19/18 Metoprolol Tartrate [Lopressor 25 mg PO BID 03/19/18 (beta mandeep)] Ibuprofen [Motrin] 400 mg PO Q4H PRN PRN tab 03/23/18 tizanidine 4 mg tablet 4 mg PO TID PRN 04/18/18 triamcinolone acetonide 55 mcg 2 spray INTRANASAL QDAY 04/18/18 nasal spray aerosol Surgical History: Surgical History (Last Reviewed 04/18/18 @ 11:03 by Ramya Fatima) H/O removal of cyst Z98.890 History of left heart catheterization Z98.890 PTCA/JAYLIN of proximal RCA 05/15/17 History of rectal surgery Z98.890 Kidney stone removal Postsurgical percutaneous transluminal coronary angioplasty (PTCA) status Onset Date: ~05/15/17 Z98.61 PTCA/JAYLIN of Prox RCA 05/15/17 Right eye surgery S/P right hemicolectomy Z90.49 History of percutaneous coronary intervention Z98.890 PTCA/JAYLIN of proximal RCA 05/15/17 Surgical History: - - kidney stone removal w/ stent, rectal surgery, laser eye surgery, right wrist cyst removed, right hemicolectomy, PCI x 1. Psychiatric History: No pertinent psych hx Lives: Spouse/ Significant Other Smoking Status: Never smoker Alcohol: None Drugs: None - *Family History Paternal Family History: Family History (Last Reviewed 04/18/18 @ 11:03 by Ramya Fatima) Father CAD (coronary artery disease) Mother CAD (coronary artery disease) History Items: Heart Disease Maternal Family History: Family History (Last Reviewed 04/18/18 @ 11:03 by Ramya Fatima) Father CAD (coronary artery disease) Mother CAD (coronary artery disease) History Items: Heart Disease Review of Systems Constitutional: Reports: Malaise, Weakness, Fatigue. Denies: Chills, Fever, Weight Change HEENT: Reports: Sore Throat. Denies: Head Aches, Sinus Congestion, Sinus Drainage Cardiovascular: Reports: Chest Pain. Denies: Palpitations Respiratory: Denies: Cough, Shortness of breath at rest, Sputum production Gastrointestinal: Denies: Abdominal Pain, Nausea, Vomiting Genitourinary: Denies: Dysuria Musculoskeletal: Reports: Hand Pain, Leg Pain. Denies: Joint Pain, Joint Tenderness Skin: Denies: Rash, Wounds Neurological: Reports: Numbness, Tingling. Denies: Focal weakness Psychiatric: Denies: Anxiety, Depression, Homicidal Ideations, Suicidal Ideations Hematologic/ Lymphatic: Reports: Anemia. Denies: Easy Bruising, Easy Bleeding Active and Suspected Problems (Last Reviewed 04/18/18 @ 11:03 by Ramya Fatima) Cold induced neuropathy (Acute) Objective: Physical Examination: General: awake, alert, oriented x 3 and cooperative, seated upright in the ED bed in no apparent distress, fatigued appearance. Skin: mildly pale color, turgor, no icterus, cyanosis. HEENT: AT/NC, EOMI, PERRLA, dry MM, no carotid bruits or JVD noted, airway patent, no obstruction or edema noted, breathing well. Lungs: CTA bilaterally, moderate effort, mild decrease BL bases, no rales, ronchi or wheezing. Heart: Regular rate and rhythm; no gallop, rub audible. Abdomen: soft, obese, healed incisions s/p R hemicolectomy, NTTP, ND, normal BS, no HSM. Extremities: no cyanosis, clubbing, or edema. Neurological: patient awake, alert, oriented x 3; cognitive function intact; pupils equally reactive to light and accomodation; cranial nerves II-XII grossly normal, moving all 4 extremities, no focal deficits, strength moderately globally decreased, improved/lessened paresthesias to BL UE and LE. Psychiatric: affect appears normal, no acute evidence of depressive or anxiety feelings. - Physical Exam Vital Signs - 24 hr Temp Pulse Resp BP Pulse Ox 05/17/18 07:30 93 05/17/18 07:07 59 L 05/17/18 03:01 52 L 05/17/18 02:05 97.7 F L 65 16 149/86 H 96 05/16/18 23:00 57 L 05/16/18 22:47 38 L 05/16/18 21:48 54 L 130/73 H 05/16/18 21:08 96 05/16/18 20:50 96 05/16/18 20:36 39 L 05/16/18 20:29 97.8 F 54 L 18 130/73 H 96 05/16/18 20:10 70 14 155/70 H 98 05/16/18 16:57 98 F 70 16 169/85 H 97 Oxygen Delivery Method Room Air Weight: 220 lb Body Mass Index (BMI) 31.1 Laboratory Results - last 24 hr 05/16/18 05/16/18 05/16/18 17:22 17:22 17:35 WBC 3.7 L RBC 4.04 L Hgb 11.1 L Hct 35.1 L MCV 86.9 MCH 27.5 MCHC 31.6 L RDW 19.3 H RDW Differential 46.5 H Plt Count 147 L MPV 8.3 Immature Gran % (Auto) 0.000 Neut % (Auto) 88.7 H Lymph % (Auto) 9.6 L [place] % (Auto) 1.4 Eos % (Auto) 0.3 Baso % (Auto) 0.0 Absolute Neuts (auto) 3.2 Absolute Lymphs (auto) 0.35 L Total Counted Not Reportable Differential Comment SCANNED Sodium Potassium Chloride Carbon Dioxide Anion Gap BUN Creatinine Estim Creat Clear Calc Est GFR (MDRD) Af Amer Est GFR (MDRD) Non-Af BUN/Creatinine Ratio Glucose Calcium Phosphorus 1.3 L Magnesium 2.3 Total Bilirubin AST ALT Alkaline Phosphatase Troponin I Total Protein Albumin Globulin Albumin/Globulin Ratio 05/16/18 05/17/18 05/17/18 17:35 06:20 06:20 WBC 6.9 RBC 4.04 L Hgb 11.3 L Hct 34.7 L MCV 85.9 MCH 28.0 MCHC 32.6 RDW 19.4 H RDW Differential 47.6 H Plt Count 169 MPV 8.6 Immature Gran % (Auto) 0.100 Neut % (Auto) 91.1 H Lymph % (Auto) 7.1 L [place] % (Auto) 1.7 Eos % (Auto) 0.0 Baso % (Auto) 0.0 Absolute Neuts (auto) 6.3 Absolute Lymphs (auto) 0.49 L Total Counted Not Reportable Differential Comment Sodium 141 143 Potassium 3.6 4.0 Chloride 107 108 H Carbon Dioxide 23.0 23.0 Anion Gap 11 12 BUN 10 11 Creatinine 1.12 1.08 Estim Creat Clear Calc 66.08 68.53 Est GFR (MDRD) Af Amer 84 88 Est GFR (MDRD) Non-Af 69 72 BUN/Creatinine Ratio 8.9 L 10.2 Glucose 176 H 128 H Calcium 8.5 8.5 Phosphorus Magnesium Total Bilirubin 0.80 AST 24 ALT 40 Alkaline Phosphatase 83 Troponin I < 0.015 Total Protein 7.0 Albumin 3.6 Globulin 3.4 Albumin/Globulin Ratio 1.1 Assessment/Plan All Active Problems (Last Reviewed 04/18/18 @ 11:03 by Ramya Fatima) 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 Anemia secondary to chemotherapy (Acute/chronic) -asymptomatic Stage III colon cancer, pT3, pN1a (low risk)-status post right hemicolectomy. HUMBERTO on adjuvant chemotherapy. Plan: -Discharge home this morning. No need for Benadryl or prednisone after discharge. -Avoid drinking cold fluid, touching cold objects or walking on cold floor. -Continue Xeloda x 2 weeks at home. -Start Zantac daily and continue Zofran as needed for nausea with chemotherapy. -Follow up with Dr. Ramos in 3 weeks. We will likely omit oxaliplatin & proceed with 6 months of Xeloda -adjuvant chemotherapy instead for his colon cancer. cc: Dr. Esteban Ramos, Dr. Radha Rivera, Dr. Luciano eFrreira
[2018-05-17] MEDS: Metoprolol Tartrate 25 MG Tablet PO (08:45)
[2018-05-17] MEDS: Aspirin E.C. 81 MG Tablet PO (08:45)
[2018-05-17] MEDS: Isosorbide Mononitrate 30 MG Tablet PO (08:45)
--- NOTE | 2018-05-17 13:57 | PCM.DC ---
- Discharge Diagnoses Current Active Problems: Current Active and Chronic Problems (Last Reviewed 04/18/18 @ 11:03 by Ramya Fatima) Pancytopenia (Chronic) Adenocarcinoma of cecum (Chronic) Cold induced neuropathy (Acute) You will use the following diet at home:: No restrictions, Regular Discharge Activity: Return to Normal Activity Allergies/Adverse Reactions: Allergies omeprazole [From Prilosec] Adverse Reaction (Verified 04/18/18 10:59) lowers WBCs Medications to take at Discharge Psyllium [Metamucil] 1 packet PO DAILY 05/13/17 Rabeprazole Sodium [Aciphex] 20 mg PO BID 05/13/17 Tamsulosin HCl [Flomax] 0.4 mg PO QHS 05/13/17 atorvastatin 80 mg tablet 80 mg PO QHS 08/24/17 Glucosamine/MSM/Chondroitin A [Glucosamine Chondroit MSM Tab] 1 ea PO DAILY 03/14/18 Aspirin E.C. [Ecotrin] 81 mg PO DAILY@0800 03/19/18 Isosorbide Mononitrate [Imdur] 30 mg PO DAILY 03/19/18 Lisinopril [Zestril] 20 mg PO DAILY 03/19/18 Metoprolol Tartrate [Lopressor (beta mandeep)] 25 mg PO BID 03/19/18 Ibuprofen [Motrin] 400 mg PO Q4H PRN PRN tab 03/23/18 triamcinolone acetonide 55 mcg nasal spray aerosol 2 spray INTRANASAL QHS 04/18/18 Cyanocobalamin [Vitamin B12] 500 mcg PO DAILY@0800 #30 tab 05/17/18 Pyridoxine HCl [Vitamin B-6] 100 mg PO DAILY@0800 #30 tab 05/17/18 Thiamine Hydrochloride [Vitamin B1] 100 mg PO DAILYCM #30 tab 05/17/18 The following prescriptions were given: Cyanocobalamin [Vitamin B12] 500 mcg PO DAILY@0800 #30 tab Pyridoxine HCl [Vitamin B-6] 100 mg PO DAILY@0800 #30 tab Thiamine Hydrochloride [Vitamin B1] 100 mg PO DAILYCM #30 tab Please follow up with your Primary Care Physician in: 1-2 weeks Test Results: Test results from this visit will be discussed in further detail at your follow-up appointment, if applicable. Proposed Discharge Date: 05/17/18
--- NOTE | 2018-05-17 13:59 | PCM.DC.SUM ---
Discharge Date and Diagnosis - Problem List Patient Problems: Active and Suspected Problems (Last Reviewed 04/18/18 @ 11:03 by Ramya Fatima) Cold induced neuropathy (Acute) Date of Admission: 05/16/18 Date of Discharge: 05/17/18 - Primary Discharge Diagnosis Active and Suspected Problems (Last Reviewed 04/18/18 @ 11:03 by Ramya Fatima) Cold induced neuropathy (Acute) - Secondary Discharge Diagnosis Chronic Problems (Last Reviewed 04/18/18 @ 11:03 by Ramya Fatima) Pancytopenia (Chronic) Adenocarcinoma of cecum (Chronic) Presence of stent in coronary artery (Chronic ~05/15/17) PTCA/JAYLIN of Prox RCA 05/15/17 GI bleed (Chronic) Anemia (Chronic) Chemotherapy Hyperlipemia, mixed (Chronic) Atherosclerotic heart disease of [place] coronary artery without angina pectoris (Chronic) PTCA/JAYLIN of Prox RCA 05/15/17 NSTEMI (non-ST elevated myocardial infarction) (Chronic) HTN (hypertension) (Chronic) HLD (hyperlipidemia) (Chronic) Peptic ulcer disease (Chronic) Hospital Course and Treatment oncology Operations: None, - - laparoscopic extended right hemicolectomy Procedures: None Summary of Care Provided: The patient is a 68 year old M h/o stage II lung cancer s/p XRT and on chemotherapy with with Oxaliplatin and Xeloda. Following chemotherapy infusion developed severe painful paresthesias and dysesthesias in the legs, arm, chest and throat and presented to the ED. Was admitted and treated with steroids and antihistamines and fluids and started on b complex vitamins. Today symptoms have improved, patient was seen by oncology and is doing much better and ok for discharge.] Discharge Activity: Return to Normal Activity Home Medications: Medications to take at Discharge Psyllium [Metamucil] 1 packet PO DAILY 05/13/17 Rabeprazole Sodium [Aciphex] 20 mg PO BID 05/13/17 Tamsulosin HCl [Flomax] 0.4 mg PO QHS 05/13/17 atorvastatin 80 mg tablet 80 mg PO QHS 08/24/17 Glucosamine/MSM/Chondroitin A [Glucosamine Chondroit MSM Tab] 1 ea PO DAILY 03/14/18 Aspirin E.C. [Ecotrin] 81 mg PO DAILY@0800 03/19/18 Isosorbide Mononitrate [Imdur] 30 mg PO DAILY 03/19/18 Lisinopril [Zestril] 20 mg PO DAILY 03/19/18 Metoprolol Tartrate [Lopressor (beta mandeep)] 25 mg PO BID 03/19/18 Ibuprofen [Motrin] 400 mg PO Q4H PRN PRN tab 03/23/18 triamcinolone acetonide 55 mcg nasal spray aerosol 2 spray INTRANASAL QHS 04/18/18 Cyanocobalamin [Vitamin B12] 500 mcg PO DAILY@0800 #30 tab 05/17/18 Pyridoxine HCl [Vitamin B-6] 100 mg PO DAILY@0800 #30 tab 05/17/18 Thiamine Hydrochloride [Vitamin B1] 100 mg PO DAILYCM #30 tab 05/17/18 Following Prescrptions Were Given to Patient: Cyanocobalamin [Vitamin B12] 500 mcg PO DAILY@0800 #30 tab Pyridoxine HCl [Vitamin B-6] 100 mg PO DAILY@0800 #30 tab Thiamine Hydrochloride [Vitamin B1] 100 mg PO DAILYCM #30 tab Primary Care Physician: Xavier El DO [Primary Care Provider] - Please follow up with your Primary Care Physician in: 1-2 weeks Medical Necessity - Tobacco Use Smoking Status: Never smoker Meaningful Use Info Meaningful Use Diagnoses (Choose all that apply): None applicable Code Visit OBSV E&M: 58226 Observation care discharge
== END 2018-05-17 13:58 | disposition home or self-care (01) ==
LOC: ED 17:36 → PCU 20:08
PROVIDERS: Admitting Provider Family Medicine; Emergency Provider Emergency Medicine; Family Provider Preventive Medicine Occupational Medicine; PCP Preventive Medicine Occupational Medicine; Visit Provider Internal Medicine
DX: G62.9 Polyneuropathy, unspecified (principal); T45.1X5A Adverse effect of antineoplastic and immunosuppressive drugs, initial encounter; C18.0 Malignant neoplasm of cecum; R00.1 Bradycardia, unspecified; I25.10 Atherosclerotic heart disease of native coronary artery without angina pectoris; I25.2 Old myocardial infarction; I10 Essential (primary) hypertension; N40.0 Benign prostatic hyperplasia without lower urinary tract symptoms; E66.9 Obesity, unspecified; R73.9 Hyperglycemia, unspecified; Z95.5 Presence of coronary angioplasty implant and graft; Z87.11 Personal history of peptic ulcer disease; Z79.899 Other long term (current) drug therapy; Z79.82 Long term (current) use of aspirin; Z68.31 Body mass index [BMI] 31.0-31.9, adult; Z71.3 Dietary counseling and surveillance; K21.9 Gastro-esophageal reflux disease without esophagitis; E78.2 Mixed hyperlipidemia; D64.81 Anemia due to antineoplastic chemotherapy
CPT/HCPCS: 36415; 71045; 80048; 80053; 83735; 84100; 84484; 85025; 93005; 96361; 96365; 96366; 96375; 96376; 99218; 99283; J7030; J7050; A4216; G0378

== ENCOUNTER 2018-06-02 07:14 | Outpatient (RCR) | payer MEDICARE, SELFPAY ==
[2017-05-15 11:53] VITALS: BMI 35.6
[2018-06-02 08:10] LABS: Absolute Lymphocyte Count 0.92 X10^3/ul (0.83-4.51); Absolute Neutrophil Count 2.6 X10^3/uL (2.0-7.7); Basophil# 0.02 X10^3/uL; Basophil% 0.5 % (0-1); Eosinophils% 2.3 % (0-5); Hemoglobin 11.7 g/dl (13.0-16.5); Lymphocyte # 0.92 X10^3/ul (4.0); Lymphocyte % 21.2 % (19-41); Mean Corp Hgb Conc 32.5 g/gl (32-36); Mean Corpuscular Hgb 28.7 pg (27.0-32.0); Mean Corpuscular Volume 88.5 fL (80-94); Mean Platelet Vol. 9.1 fl (6.2-12.0); Monocyte# 0.68 X10^3/uL; Monocyte% 15.7 % (0-10); Neutrophil # 2.58 X10^3/uL (2.7-7.7); Neutrophil % 59.4 % (47-70); Platelet Count 180 K/mm3 (150-450); RBC Distribution Width CV 22.4 % (11.6-14.6); RBC Distribution Width SD 59.5 fl (35.1-43.9); Red Blood Count 4.07 M/mm3 (4.6-6.2); White Blood Count 4.3 K/mm3 (4.4-11.0)
[2018-06-02 08:11] LABS: Differential Indicated SCAN CRITERIA MET; POSITIVE COUNT NO; POSITIVE DIFFERENTIAL NO; POSITIVE MORPHOLOGY YES
[2018-06-02 08:38] LABS: ALB/GLOB Ratio 1.2 RATIO (0.9-2.4); AST(SGOT) 26 U/L (15-37); Alanine Aminotransfer ALT/SGPT 49 U/L (16-61); Albumin, Serum 4.1 g/dL (3.2-5.0); Alkaline Phosphatase 90 U/L (45-117); Anion Gap 8 (5-15); BUN 11 mg/dL (7-18); BUN/Creat Ratio 10.2 RATIO (10-20); Calcium,Total 8.6 mg/dL (8.5-10.1); Chloride 106 mmol/L (98-107); Creatinine, Serum 1.08 mg/dL (0.70-1.30); EST Glomerular Filtration Rate 72 mL/min (>60); Est Glom Filt Rate - Afr Amer 88 mL/min (>60); Globulin 3.5 g/dL (2.2-4.2); Glucose 96 mg/dL (74-106); Protein, Total 7.6 g/dL (6.4-8.2); Sodium Level 142 mmol/L (136-145)
[2018-06-02 08:57] LABS: Anisocytosis 2+; Differential Comment SCANNED; Macrocytosis 1+; Microcytosis 1+
== END 2018-06-05 08:00 | disposition home or self-care (01) ==
LOC: LAB 07:14
PROVIDERS: Family Provider Preventive Medicine Occupational Medicine; PCP Preventive Medicine Occupational Medicine; Visit Provider Internal Medicine Hematology & Oncology
DX: C18.0 Malignant neoplasm of cecum (principal)
CPT/HCPCS: 36415; 80053; 85025

== ENCOUNTER 2018-07-16 06:56 | Outpatient (RCR) | payer MEDICARE, SELFPAY ==
[2017-05-15 11:53] VITALS: BMI 35.6
[2018-06-25 07:22] LABS: Absolute Neutrophil Count 2.3 X10^3/uL (2.0-7.7); Basophil# 0.01 X10^3/uL; Basophil% 0.3 % (0-1); Eosinophil# 0.05 X10^3/uL; Eosinophils% 1.4 % (0-5); Hematocrit 39.8 % (40-54); Hemoglobin 13.4 g/dl (13.0-16.5); Lymphocyte % 21.7 % (19-41); Mean Corp Hgb Conc 33.7 g/gl (32-36); Mean Corpuscular Hgb 30.2 pg (27.0-32.0); Mean Corpuscular Volume 89.6 fL (80-94); Mean Platelet Vol. 8.6 fl (6.2-12.0); Monocyte# 0.49 X10^3/uL; Monocyte% 13.3 % (0-10); Neutrophil % 62.2 % (47-70); Platelet Count 153 K/mm3 (150-450); RBC Distribution Width CV 26.2 % (11.6-14.6); RBC Distribution Width SD 81.9 fl (35.1-43.9); Red Blood Count 4.44 M/mm3 (4.6-6.2); White Blood Count 3.7 K/mm3 (4.4-11.0)
[2018-06-25 07:24] LABS: Differential Indicated SCAN CRITERIA MET; POSITIVE COUNT NO; POSITIVE DIFFERENTIAL NO; POSITIVE MORPHOLOGY YES
[2018-06-25 07:38] LABS: ALB/GLOB Ratio 1.2 RATIO (0.9-2.4); AST(SGOT) 35 U/L (15-37); Alanine Aminotransfer ALT/SGPT 64 U/L (16-61); Albumin, Serum 4.2 g/dL (3.2-5.0); Alkaline Phosphatase 85 U/L (45-117); Anion Gap 8 (5-15); BUN 10 mg/dL (7-18); BUN/Creat Ratio 9.1 RATIO (10-20); Calcium,Total 9.2 mg/dL (8.5-10.1); Chloride 107 mmol/L (98-107); EST Glomerular Filtration Rate 71 mL/min (>60); Est Glom Filt Rate - Afr Amer 86 mL/min (>60); Globulin 3.4 g/dL (2.2-4.2); Glucose 100 mg/dL (74-106); Protein, Total 7.6 g/dL (6.4-8.2); Sodium Level 143 mmol/L (136-145)
[2018-06-25 07:48] LABS: Anisocytosis 1+; Macrocytosis RARE
[2018-07-16 07:57] LABS: Absolute Lymphocyte Count 0.85 X10^3/ul (0.83-4.51); Absolute Neutrophil Count 2.5 X10^3/uL (2.0-7.7); BUN 11 mg/dL (7-18); Basophil# 0.01 X10^3/uL; Basophil% 0.3 % (0-1); Creatinine, Serum 1.12 mg/dL (0.70-1.30); Differential Indicated SCAN CRITERIA MET; Eosinophil# 0.05 X10^3/uL; Eosinophils% 1.3 % (0-5); Glucose 99 mg/dL (74-106); Hematocrit 41.7 % (40-54); Hemoglobin 13.8 g/dl (13.0-16.5); Lymphocyte # 0.85 X10^3/ul (4.0); Lymphocyte % 21.5 % (19-41); Mean Corp Hgb Conc 33.1 g/gl (32-36); Mean Corpuscular Hgb 30.9 pg (27.0-32.0); Mean Corpuscular Volume 93.3 fL (80-94); Mean Platelet Vol. 8.7 fl (6.2-12.0); Monocyte% 12.7 % (0-10); Neutrophil # 2.52 X10^3/uL (2.7-7.7); Neutrophil % 63.7 % (47-70); POSITIVE COUNT NO; POSITIVE DIFFERENTIAL NO; POSITIVE MORPHOLOGY YES; Platelet Count 135 K/mm3 (150-450); RBC Distribution Width CV 27.3 % (11.6-14.6); RBC Distribution Width SD 91.8 fl (35.1-43.9); Red Blood Count 4.47 M/mm3 (4.6-6.2)
[2018-07-16 07:58] LABS: ALB/GLOB Ratio 1.3 RATIO (0.9-2.4); AST(SGOT) 30 U/L (15-37); Alanine Aminotransfer ALT/SGPT 62 U/L (16-61); Albumin, Serum 4.3 g/dL (3.2-5.0); Alkaline Phosphatase 78 U/L (45-117); Anion Gap 6 (5-15); BUN/Creat Ratio 9.8 RATIO (10-20); Calcium,Total 8.9 mg/dL (8.5-10.1); Chloride 106 mmol/L (98-107); EST Glomerular Filtration Rate 69 mL/min (>60); Est Glom Filt Rate - Afr Amer 84 mL/min (>60); Globulin 3.2 g/dL (2.2-4.2); Potassium 3.9 mmol/L (3.5-5.1); Protein, Total 7.5 g/dL (6.4-8.2); Sodium Level 141 mmol/L (136-145)
== END 2018-07-16 08:00 | disposition home or self-care (01) ==
LOC: LAB 06:56
PROVIDERS: Family Provider Preventive Medicine Occupational Medicine; PCP Preventive Medicine Occupational Medicine; Referring Provider Internal Medicine Hematology & Oncology; Visit Provider Internal Medicine Hematology & Oncology
DX: C18.0 Malignant neoplasm of cecum (principal)
CPT/HCPCS: 36415; 80053; 85025

== ENCOUNTER 2018-08-06 06:44 | Outpatient (RCR) | payer MEDICARE, SELFPAY ==
[2017-05-15 11:53] VITALS: BMI 35.6
[2018-08-06 07:42] LABS: Absolute Lymphocyte Count 0.83 X10^3/ul (0.83-4.51); Absolute Neutrophil Count 2.3 X10^3/uL (2.0-7.7); Basophil# 0.01 X10^3/uL; Basophil% 0.3 % (0-1); Eosinophil# 0.08 X10^3/uL; Eosinophils% 2.1 % (0-5); Hemoglobin 14.1 g/dl (13.0-16.5); Lymphocyte # 0.83 X10^3/ul (4.0); Lymphocyte % 22.1 % (19-41); Mean Corp Hgb Conc 33.6 g/gl (32-36); Mean Corpuscular Hgb 32.6 pg (27.0-32.0); Mean Platelet Vol. 8.8 fl (6.2-12.0); Monocyte# 0.52 X10^3/uL; Monocyte% 13.9 % (0-10); Neutrophil # 2.27 X10^3/uL (2.7-7.7); Neutrophil % 60.5 % (47-70); Platelet Count 135 K/mm3 (150-450); RBC Distribution Width CV 25.1 % (11.6-14.6); RBC Distribution Width SD 89.6 fl (35.1-43.9); Red Blood Count 4.33 M/mm3 (4.6-6.2); White Blood Count 3.8 K/mm3 (4.4-11.0)
[2018-08-06 07:43] LABS: Differential Indicated SCAN CRITERIA MET; POSITIVE COUNT NO; POSITIVE DIFFERENTIAL NO; POSITIVE MORPHOLOGY YES
[2018-08-06 07:58] LABS: ALB/GLOB Ratio 1.3 RATIO (0.9-2.4); AST(SGOT) 30 U/L (15-37); Alanine Aminotransfer ALT/SGPT 62 U/L (16-61); Albumin, Serum 4.3 g/dL (3.2-5.0); Alkaline Phosphatase 83 U/L (45-117); Anion Gap 7 (5-15); BUN 9 mg/dL (7-18); BUN/Creat Ratio 8.9 RATIO (10-20); Calcium,Total 8.7 mg/dL (8.5-10.1); Chloride 108 mmol/L (98-107); Creatinine, Serum 1.01 mg/dL (0.70-1.30); EST Glomerular Filtration Rate 78 mL/min (>60); Est Glom Filt Rate - Afr Amer 95 mL/min (>60); Globulin 3.3 g/dL (2.2-4.2); Glucose 105 mg/dL (74-106); Potassium 3.9 mmol/L (3.5-5.1); Protein, Total 7.6 g/dL (6.4-8.2); Sodium Level 142 mmol/L (136-145)
[2018-08-06 08:11] LABS: Anisocytosis 1+; Basophilic Stippling RARE
== END 2018-08-17 11:30 | disposition home or self-care (01) ==
LOC: LAB 06:44
PROVIDERS: Family Provider Preventive Medicine Occupational Medicine; PCP Preventive Medicine Occupational Medicine; Referring Provider Internal Medicine Hematology & Oncology; Visit Provider Internal Medicine Hematology & Oncology
DX: C18.0 Malignant neoplasm of cecum (principal)
CPT/HCPCS: 36415; 80053; 85025

== ENCOUNTER 2018-09-17 06:44 | Outpatient (RCR) | payer MEDICARE, SELFPAY ==
[2017-05-15 11:53] VITALS: BMI 35.6
[2018-05-16 20:29] VITALS: BMI 31.6
[2018-08-27 09:17] LABS: Absolute Neutrophil Count 1.9 X10^3/uL (2.0-7.7); Basophil# 0.01 X10^3/uL; Basophil% 0.3 % (0-1); Eosinophil# 0.05 X10^3/uL; Eosinophils% 1.5 % (0-5); Hematocrit 42.1 % (40-54); Hemoglobin 14.6 g/dl (13.0-16.5); Lymphocyte % 24.5 % (19-41); Mean Corp Hgb Conc 34.7 g/gl (32-36); Mean Corpuscular Hgb 34.8 pg (27.0-32.0); Mean Corpuscular Volume 100.5 fL (80-94); Mean Platelet Vol. 9.3 fl (6.2-12.0); Monocyte# 0.45 X10^3/uL; Monocyte% 13.8 % (0-10); Neutrophil # 1.94 X10^3/uL (2.7-7.7); Neutrophil % 59.3 % (47-70); Platelet Count 60 K/mm3 (150-450); RBC Distribution Width CV 20.4 % (11.6-14.6); RBC Distribution Width SD 73.8 fl (35.1-43.9); Red Blood Count 4.19 M/mm3 (4.6-6.2); White Blood Count 3.3 K/mm3 (4.4-11.0)
[2018-08-27 09:18] LABS: Differential Indicated SCAN CRITERIA MET; POSITIVE COUNT NO; POSITIVE DIFFERENTIAL NO; POSITIVE MORPHOLOGY YES
[2018-08-27 09:30] LABS: ALB/GLOB Ratio 1.3 RATIO (0.9-2.4); AST(SGOT) 42 U/L (15-37); Alanine Aminotransfer ALT/SGPT 62 U/L (16-61); Albumin, Serum 4.1 g/dL (3.2-5.0); Alkaline Phosphatase 74 U/L (45-117); Anion Gap 9 (5-15); BUN 11 mg/dL (7-18); BUN/Creat Ratio 11.3 RATIO (10-20); Calcium,Total 8.8 mg/dL (8.5-10.1); Chloride 109 mmol/L (98-107); Creatinine, Serum 0.98 mg/dL (0.70-1.30); EST Glomerular Filtration Rate 81 mL/min (>60); Est Glom Filt Rate - Afr Amer 98 mL/min (>60); Globulin 3.1 g/dL (2.2-4.2); Glucose 92 mg/dL (74-106); Protein, Total 7.2 g/dL (6.4-8.2); Sodium Level 140 mmol/L (136-145)
[2018-09-17 07:41] LABS: Absolute Lymphocyte Count 0.93 X10^3/ul (0.83-4.51); Absolute Neutrophil Count 2.1 X10^3/uL (2.0-7.7); Basophil# 0.01 X10^3/uL; Basophil% 0.3 % (0-1); Eosinophil# 0.06 X10^3/uL; Eosinophils% 1.6 % (0-5); Hemoglobin 14.9 g/dl (13.0-16.5); Lymphocyte # 0.93 X10^3/ul (4.0); Lymphocyte % 25.3 % (19-41); Mean Corp Hgb Conc 33.9 g/gl (32-36); Mean Corpuscular Hgb 35.4 pg (27.0-32.0); Mean Corpuscular Volume 104.5 fL (80-94); Monocyte# 0.52 X10^3/uL; Monocyte% 14.2 % (0-10); Neutrophil # 2.13 X10^3/uL (2.7-7.7); Neutrophil % 58.1 % (47-70); Platelet Count 136 K/mm3 (150-450); RBC Distribution Width CV 18.1 % (11.6-14.6); RBC Distribution Width SD 67.9 fl (35.1-43.9); Red Blood Count 4.21 M/mm3 (4.6-6.2); White Blood Count 3.7 K/mm3 (4.4-11.0)
[2018-09-17 07:43] LABS: Differential Indicated SCAN CRITERIA MET; POSITIVE COUNT NO; POSITIVE DIFFERENTIAL NO; POSITIVE MORPHOLOGY YES
[2018-09-17 08:00] LABS: ALB/GLOB Ratio 1.3 RATIO (0.9-2.4); AST(SGOT) 43 U/L (15-37); Alanine Aminotransfer ALT/SGPT 86 U/L (16-61); Albumin, Serum 4.3 g/dL (3.2-5.0); Alkaline Phosphatase 77 U/L (45-117); Anion Gap 10 (5-15); BUN 12 mg/dL (7-18); BUN/Creat Ratio 10.1 RATIO (10-20); Chloride 104 mmol/L (98-107); Creatinine, Serum 1.19 mg/dL (0.70-1.30); EST Glomerular Filtration Rate 65 mL/min (>60); Est Glom Filt Rate - Afr Amer 78 mL/min (>60); Globulin 3.2 g/dL (2.2-4.2); Glucose 103 mg/dL (74-106); Potassium 3.7 mmol/L (3.5-5.1); Protein, Total 7.5 g/dL (6.4-8.2); Sodium Level 143 mmol/L (136-145)
== END 2018-09-17 07:00 | disposition home or self-care (01) ==
LOC: LAB 06:44
PROVIDERS: Family Provider Preventive Medicine Occupational Medicine; PCP Preventive Medicine Occupational Medicine; Referring Provider Internal Medicine Hematology & Oncology; Visit Provider Internal Medicine Hematology & Oncology
DX: C18.0 Malignant neoplasm of cecum (principal)
CPT/HCPCS: 36415; 80053; 85025

== ENCOUNTER 2018-10-08 07:21 | Outpatient (RCR) | payer MEDICARE, SELFPAY ==
[2017-05-15 11:53] VITALS: BMI 35.6
[2018-05-16 20:29] VITALS: BMI 31.6
[2018-10-08 07:53] LABS: Absolute Lymphocyte Count 0.98 X10^3/ul (0.83-4.51); Absolute Neutrophil Count 2.7 X10^3/uL (2.0-7.7); Basophil# 0.01 X10^3/uL; Basophil% 0.2 % (0-1); Eosinophil# 0.08 X10^3/uL; Eosinophils% 1.9 % (0-5); Hematocrit 44.5 % (40-54); Hemoglobin 15.1 g/dl (13.0-16.5); Lymphocyte # 0.98 X10^3/ul (4.0); Mean Corp Hgb Conc 33.9 g/gl (32-36); Mean Corpuscular Hgb 35.9 pg (27.0-32.0); Mean Corpuscular Volume 105.7 fL (80-94); Mean Platelet Vol. 9.3 fl (6.2-12.0); Monocyte# 0.41 X10^3/uL; Monocyte% 9.6 % (0-10); Neutrophil # 2.73 X10^3/uL (2.7-7.7); Neutrophil % 64.1 % (47-70); Platelet Count 143 K/mm3 (150-450); RBC Distribution Width CV 17.5 % (11.6-14.6); RBC Distribution Width SD 66.2 fl (35.1-43.9); Red Blood Count 4.21 M/mm3 (4.6-6.2); White Blood Count 4.3 K/mm3 (4.4-11.0)
[2018-10-08 07:54] LABS: Differential Indicated SCAN CRITERIA MET; POSITIVE COUNT NO; POSITIVE DIFFERENTIAL NO; POSITIVE MORPHOLOGY YES
[2018-10-08 08:18] LABS: ALB/GLOB Ratio 1.3 RATIO (0.9-2.4); AST(SGOT) 42 U/L (15-37); Alanine Aminotransfer ALT/SGPT 73 U/L (16-61); Albumin, Serum 4.2 g/dL (3.2-5.0); Alkaline Phosphatase 81 U/L (45-117); Anion Gap 10 (5-15); BUN 11 mg/dL (7-18); BUN/Creat Ratio 9.2 RATIO (10-20); Calcium,Total 8.9 mg/dL (8.5-10.1); Chloride 108 mmol/L (98-107); EST Glomerular Filtration Rate 64 mL/min (>60); Est Glom Filt Rate - Afr Amer 78 mL/min (>60); Globulin 3.3 g/dL (2.2-4.2); Glucose 106 mg/dL (74-106); Potassium 3.9 mmol/L (3.5-5.1); Protein, Total 7.5 g/dL (6.4-8.2); Sodium Level 142 mmol/L (136-145)
[2018-10-08 08:37] LABS: Anisocytosis 1+; Macrocytosis 2+; Platelet Estimate ADEQUATE (ADEQ); Red Cell Morphology N CHROM NORMAL (NORM C&C)
--- OUTSIDE RECORDS SUMMARY | 2018-12-10 15:01 | XMS RPT_ITS ---
:1950 Author Organization [place] Support Name Relationship Address Phone R Unavailable Unavailable Unavailable JORGENSEN, BLANKA Unavailable [address] + [address] [place] [address] R Unavailable Unavailable Unavailable JORGENSEN, BLANKA Unavailable [address] + [address] [place] [address] R Unavailable Unavailable Unavailable JORGENSEN, BLANKA Unavailable [address] + [address] [place] [address] R Unavailable Unavailable Unavailable JORGENSEN, BLANKA Unavailable [address] + [address] [place] [address] R Unavailable Unavailable Unavailable JORGENSEN, BLANKA Unavailable [address] + [address] [place] [address] R Unavailable Unavailable Unavailable JORGENSEN, BLANKA Unavailable [address] + [address] [place] [address] R Unavailable Unavailable Unavailable JORGENSEN, BLANKA Unavailable [address] + [address] [place] [address] R Unavailable Unavailable Unavailable JORGENSEN, BLANKA Unavailable [address] + [address] [place] [address] R Unavailable Unavailable Unavailable JORGENSEN, BLANKA Unavailable [address] + [address] [place] [address] R Unavailable Unavailable Unavailable JORGENSEN, BLANKA Unavailable [address] + [address] [place] [address] R Unavailable Unavailable Unavailable JORGENSEN, BLANKA Unavailable [address] + [address] [place] [address] R Unavailable Unavailable Unavailable JORGENSEN, BLANKA Unavailable [address] + [address] [place] [address] R Unavailable Unavailable Unavailable JORGENSEN, BLANKA Unavailable [address] + [address] [place] [address] R Unavailable Unavailable Unavailable JORGENSEN, BLANKA Unavailable [address] + [address] [place] [address] R Unavailable Unavailable Unavailable JORGENSEN, BLANKA Unavailable [address] + [address] [place] [address] R Unavailable Unavailable Unavailable JORGENSEN, BLANKA Unavailable [address] + [address] [place] [address] R Unavailable Unavailable Unavailable JORGENSEN, BLANKA Unavailable [address] + [address] [place] [address] R Unavailable Unavailable Unavailable JORGENSEN, BLANKA Unavailable [address] + [address] [place] [address] R Unavailable Unavailable Unavailable JORGENSEN, BLANKA Unavailable [address] + [address] [place] [address] R Unavailable Unavailable Unavailable JORGENSEN, BLANKA Unavailable [address] + [address] [place] [address] R Unavailable Unavailable Unavailable JORGENSEN, BLANKA Unavailable [address] + [address] [place] [address] R Unavailable Unavailable Unavailable JORGENSEN, BLANKA Unavailable [address] + [address] [place] [address] R Unavailable Unavailable Unavailable JORGENSEN, BLANKA Unavailable [address] + [address] [place] [address] Care Team Providers Name Role Phone CHRIS FERREIRA Attending Unavailable CHRIS FERREIRA Attending Unavailable SHLOMO DUDLEY Referring Unavailable ESTEBAN RAMOS Attending Unavailable CHRIS FERREIRA Referring Unavailable CHRIS FERREIRA Attending Unavailable SHLOMO DUDLEY Referring Unavailable ESTEBAN RAMOS Attending Unavailable CHRIS FERREIRA Referring Unavailable ESTEBAN RAMOS Referring Unavailable ESTEBAN RAMOS Referring Unavailable ESTEBAN RAMOS Referring Unavailable ESTEBAN RAMOS Attending Unavailable HANNA, CHRIS Carranza Referring Unavailable MASCI, ESTEBAN Lopez Referring Unavailable MASCI, ESTEBAN Lopez Attending Unavailable MASCI, ESTEBAN Lopez Referring Unavailable MASCI, ESTEBAN Lopez Attending Unavailable HANNA, CHRIS Carranza Referring Unavailable MASCI, ESTEBAN Lopez Attending Unavailable HANNA, CHRIS Carranza Referring Unavailable HANNA, CHRIS Carranza Attending Unavailable OCTAVIASHLOMO F Referring Unavailable MASCI, ESTEBAN Lopez Attending Unavailable HANNA, CHRIS Carranza Referring Unavailable MASCI, ESTEBAN Lopez Attending Unavailable HANNA, CHRIS Carranza Referring Unavailable MASCI, ESTEBAN Lopez Attending Unavailable MASCI, ESTEBAN Lopez Referring Unavailable Masci, Esteban Attending Unavailable Masci, Esteban [facility] Fady Attending Unavailable [facility], Fady Ruano Referring Unavailable [facility] Un[facility] Unavailable Jopperi, Yonathan Admitting Unavailable Jopperi, Yonathan Attending Unavailable Cueva, Lorenza Consulting Unavailable Jopperi, Yonathan Admitting Unavailable Jopperi, Yonathan Attending Unavailable [facility] Unavailable Cueva, Lorenza Consulting Unavailable Jopperi, Yonathan Consulting Unavailable Jopperi, Yonathan Admitting Unavailable Octavia, Shlomo Primary Care Unavailable Cueva, Lorenza Consulting Unavailable Jopperi, Yonathan Attending Unavailable Jopperi, Yonathan Consulting Unavailable Jopperi, Yonathan Admitting Unavailable MoodEsteban anton Attending Unavailable Octavia, [facility] Unavailable Cueva, Lorenza Consulting Unavailable Jopperi, Yonathan Consulting Unavailable Jopperi, Yonathan Admitting Unavailable Jopperi, Yonathan Attending Unavailable Octavia, [facility] Care Unavailable Cueva, Lorenza Consulting Unavailable Jopperi, Yonathan Consulting Unavailable Jopperi, Yonathan Admitting Unavailable MoodispawEsteban Attending Unavailable Octavia, Shlomo Primary Care Unavailable Cueva, Lorenza Consulting Unavailable Jopperi, Yonathan Consulting Unavailable Jopperi, Yonathan Admitting Unavailable Jopperi, Yonathan Attending Unavailable [facility] Unavailable Cueva, Lorenza Consulting Unavailable Jopperi, Yonathan Consulting Unavailable Hanna, Chris Admitting Unavailable Hanna, Chris Attending Unavailable [facility] Unavailable Masci, Esteban Attending Unavailable [facility] Unavailable Masci, Esteban Referring Unavailable Ramya Fatima Attending Unavailable Moodispaw, Esteban Attending Unavailable Octavia, Shlomo Referring Unavailable [facility] Unavailable Masci, Esteban Attending Unavailable Octavia, Shlomo Primary Care Unavailable Masci, Esteban Referring Unavailable Masci, Esteban Attending Unavailable Masci, Esteban Referring Unavailable Octavia, Shlomo Primary Care Unavailable Octavia, Shlomo Primary Care Unavailable White, Radha Admitting Unavailable White, Radha Referring Unavailable Masci, Esteban Consulting Unavailable Oleghe, Ifijen Attending Unavailable White, Radha Admitting Unavailable White, Radha Attending Unavailable White, Radha Referring Unavailable Octavia, Shlomo Primary Care Unavailable Masci, Esteban Consulting Unavailable White, Radha Consulting Unavailable White, Radha Admitting Unavailable White, Radha Referring Unavailable Octavia, Shlomo Primary Care Unavailable Masci, Esteban Consulting Unavailable Sementi, Indy Attending Unavailable Oleghe, Ifijen Consulting Unavailable Moodispaw, Esteban Attending Unavailable Octavia, Shlomo Referring Unavailable Masci, Esteban Attending Unavailable Masci, Esteban Referring Unavailable Octavia, Shlomo Primary Care Unavailable Masci, Esteban Attending Unavailable Masci, Esteban Referring Unavailable Octavia, Shlomo Primary Care Unavailable Masci, Esteban Attending Unavailable Masci, Esteban Referring Unavailable Octavia, Shlomo Primary Care Unavailable Masci, Esteban Attending Unavailable Masci, Esteban Referring Unavailable Octavia, Shlomo Primary Care Unavailable PROBLEMS PROBLEMS DATE TYPE CONDITION / CODE ATTENDING STATUS SOURCE 09/17/2018 Unknown C18.0 - Malignant Esteban Ramos Active [facility] [facility] cecum [facility] C18.0(ICD-10) Hospital Repository 04/21/2018 Unknown C77.2 - Secondary MascEsteban benitez Active [place] and unspecified [facility] malignant [facility]oplasm [facility] of intra-abdominal Repository lymph nodes / C77.2(ICD-10) 04/21/2018 Unknown 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) / Repository D50.0(ICD-10) 03/30/2018 Active Secondary and NA Active [place] unspecified [facility] Main malignant neoplasm [place] of intra-abdominal Repository lymph nodes / C77.2(ICD-10) 03/30/2018 Active Malignant neoplasm NA Active [place] of [facility]ecum / Clinic Main C18.0(ICD-10) [place] Repository 04/20/2018 Active 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 REPOSITORY Visit (SP) Office (NIM[place]) MYRNA JORGENSEN ([id number]) 1950 M Date Time Provider Department 10/09/18 8:30 AM ESTEBAN RAMOS During your visit today, we recorded the following information about you: Temperature Pulse Blood pressure Weight 97.9 degrees 66/minute 165/85 111.8 kg Niki Rios LPN, COMFORT 10/09/2018 8:37 AM Signed Est. Pt. Discuss recent lab results from [facility] 10/08 COMFORT Dolan DO 10/09/2018 8:53 AM Signed Diagnosis: 1) Stage IIIA colon cancer. HPI: The patient is a 68 yo male HTN and CAD (SC 2017; 2 stents RCA). Patient was on ASA and Plavix. Had episode rectal bleeding without previous bleeding. Went to ED where bleeding continued. Admitted. MICROSCOPIC DIAGNOSIS A. Right colon, hemicolectomy: Invasive adenocarcinoma. See complete cancer checklist below. B. Soft tissue of umbilical region, excision: Fragment of fibrofatty tissue with mild fibrosis consistent with hernia sac. No evidence of malignancy. COMMENT COLON CANCER SUMMARY: Specimen ? right colon Procedure ? right hemicolectomy Tumor site ? right colon Tumor size ? 2.5 x 2 x 0.5 cm Macroscopic tumor perforation ? not identified Histologic type - adenocarcinoma Histologic grade ? low-grade (moderately differentiated) Microscopic tumor extension ? tumor invades through the muscularis propria to the subserosal adipose tissue. Tumor is located 3 cm from its closest (distal) mucosal margin of excision. Margins: Proximal margin ? uninvolved by invasive carcinoma. Distal margin - uninvolved by invasive carcinoma. Circumferential or mesenteric margin - uninvolved by invasive carcinoma. Treatment effect - unknown Lymph-Vascular invasion ? not identified. Perineural invasion ? not identified Tumor deposits - not identified Lymph nodes: Number of lymph nodes examined - 39 Number of lymph nodes involved - 1 Additional pathologic findings ? largest polyp close to ileocecal valve with focal high-grade dysplasia. Two smaller polyps ? tubular adenoma Appendix ? fibrous obliteration of distal appendix and focal hyperplastic mucosal change. Ancillary studies: Microsatellite instability - Negative (no loss of mismatch protein; no microsatellite instability detected). Immunohistochemistry studies for mismatch repair proteins: MLH1 - Intact nuclear positivity, tumor cells MSH2 - Intact nuclear positivity, tumor cells MSH6 - Intact nuclear positivity, tumor cells PMS2 - Intact nuclear positivity, tumor cells PATHOLOGIC STAGE: pT3 N1a Mx Was seen by cardiology. Was told okay to stay off Plavix. Continuing ASA daily. Previous therapy: 1) CAPOX. Significant early onset of rather extreme neurologic symptoms following second dose. He required hospitalization overnight observation due to the laryngeal dysesthesia--started in feet right after infusion. Immediately went to knees when he stood up out of chair. By the time he got home (very hot that day; >85 degrees) had feeling of cutting glass from throat to stomach when tried to swallow. Had sensation of severe pain in throat. Couldn't talk. Current therapy: 1) Capecitabine. Presents for ongoing oncologic management. Interim history: Significant HFS reaction of feet this cycle. Eyes feel dry. No nausea with use of Zofran. Stopped last week after completed cycle. Bowels moving regularly and normally. Good appetite. No abdominal pain, bloating or distention. No episodes jaundice. No symptoms of neuropathy. PMH, medications and allergies personally reviewed by me today. Any changes documented in appropriate section. ROS: Constitutional: Denies episodes of fever and night sweats. Neuro: Denies LEWIS, vertigo, dizziness and imbalance. Denies symptoms of neuropathy. HEENT: No recent change in voice, vision or hearing. Resp: Denies cough, wheeze and hemoptysis. CVS: Denies PND, orthopnea. GI: See above. : Denies dysuria or gross hematuria. No symptoms of bladder outlet obstruction. Endo: Denies hot flashes. Denies polyuria and polydipsia. Denies heat and cold intolerance. Musculoskeletal: Denies bone, joint, back and muscular pain. Derm: See above. Heme: Denies unusual bleeding and unexplained bruising. Psych: Normal mood. PHYSICAL EXAM: Vitals: Blood pressure 165/85, pulse 66, temperature 36.6 ?C (97.9 ?F), weight 111.8 kg (246 lb 8 oz). Well-appearing and in no acute distress. EYES: Sclerae are anicteric bilaterally. NECK: Supple. LYMPHATIC: There is no palpable cervical, supraclavicular adenopathy. RESPIRATORY: Inspiratory breath sounds are of normal intensity in all monroy. No rales, wheezes or rhonchi. Expiratory phase is normal. CARDIOVASCULAR: Rhythm is regular. Normal intensity S1/S2. There is no gallop or murmur. ABDOMEN: The abdomen is nondistended. No organomegaly. No tenderness. Extremities: No swelling or edema. SKIN: Resolving areas of desquamation of the feet. NEUROLOGIC: open cut examiner II-XII are grossly intact. No focal motor weakness. MUSCULOSKELETAL: No joint swelling or tenderness. No muscle wasting. 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 -Pathologic staging previously completed in problem list. -Significant reaction to oxaliplatin. -Tolerated capecitabine well with exception hand-foot skin reaction. -Discussed follow up plan: will need SCP in a few weeks. Office visit every 3-6 months for first 2 years and every 6 months for a total of 5 years. CEA every 3-6 months ?2 years and every 6 months for a total of [address] scan of chest, abdomen and pelvis every 6 months for the first 2 years then annually up to year 5. Colonoscopy approximately 1 year after surgery. Plan: -Schedule SCP. -Recommended preservative-free moisturizing eyedrops prn. -Due for colonoscopy in February. -OV/labs in about 3 months. -CT in about 6 months. 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) [C77.2] Follow-up and Disposition History Recorded Prescriptions as of 10/09/2018 Sig: ONDANSETRON HCL 8 MG TABLET Take 1 tablet by mouth every * MULTIPLE VITAMIN ORAL Take 1 tablet by mouth once d* METAMUCIL ORAL Take 2 Tablespoonsful by mout* GLUCOSAMINE [id number]-[id number]* Take 1 tablet by mouth once d* TRIAMCINOLONE ACETONIDE 55 MC* Use 2 Sprays in the nose once* ASPIRIN 81 MG TABLET,DELAYED * Take 81 mg by mouth once curtis* ATORVASTATIN 80 MG TABLET Take 80 mg by mouth once curtis* ISOSORBIDE MONONITRATE ER 30 * Take 30 mg by mouth once curtis* LISINOPRIL 20 MG TABLET Take 20 mg by mouth once curtis* METOPROLOL TARTRATE 25 MG TAB* Take 25 mg by mouth twice cely* MIRALAX ORAL Take 1 scoop by mouth once da* TAMSULOSIN 0.4 MG CAPSULE Take 1 capsule by mouth daily* RABEPRAZOLE 20 MG TABLET,MIA* Take 1 tablet by mouth once d* Patient taking differently: Take 20 mg by mouth twice cely* CAPECITABINE 500 MG TABLET Take 3 tablets by mouth twice* Patient not taking: Reported on 10/09/2018 VITAMIN B12 500 MCG-FOLIC ACI* 1 capsule once daily. CYANOCOBALAMIN (VIT B-12) 500* 1 tablet once daily. VITAMIN B-6 100 MG TABLET 1 tablet once daily. OLANZAPINE 10 MG TABLET Take 1 tablet by mouth daily * Patient not taking: Reported on 06/26/2018 Problem List As Of Date 10/09/2018 Noted Resolved CALCULUS OF KIDNEY [N20.0] INVALID FOR* BENIGN HYPERTENSION [I10] INVALID FOR* HYPERLIPIDEMIA NEC/NOS [E78.5] INVALID FOR* ESOPHAGEAL REFLUX [K21.9] INVALID FOR* Vasomotor rhinitis [J30.0] INVALID FOR* BPH (benign prostatic hyperplasia) [N40.0] INVALID FOR* Cancer of cecum (HCC) [C18.0] INVALID FOR* Metastatic cancer to intra-abdominal lymph node*INVALID FOR* Iron deficiency anemia due to chronic blood los*INVALID FOR* Iron malabsorption [K90.9] INVALID FOR* Visit Notes: >> Niki Ye (Comfort) COMFORT Rios Oct 09, 2018 8:22 AM Status: Signed Est. Pt. Discuss recent lab results from [facility] 10/08 Niki Rios LPN Encounter Status:Closed by ESTEBAN RAMOS DO on 10/09/18 PROGRESS Observed: 10/09/2018 Status: COMPLETED Source: [place] 8:[address] [facility] REPOSITORY HNO ID: [id number] Author: Esteban Ramos Service: (none) Author Type: Physician Type: Progress Notes Filed: 10/09/2018 8:53 AM Note Text: Diagnosis: 1) Stage IIIA colon cancer. HPI: The patient is a 68 yo male HTN and CAD (SC 2017; 2 stents RCA). Patient was on ASA and Plavix. Had episode rectal bleeding without previous bleeding. Went to ED where bleeding continued. Admitted. MICROSCOPIC DIAGNOSIS A. Right colon, hemicolectomy: Invasive adenocarcinoma. See complete cancer checklist below. B. Soft tissue of umbilical region, excision: Fragment of fibrofatty tissue with mild fibrosis consistent with hernia sac. No evidence of malignancy. COMMENT COLON CANCER SUMMARY: Specimen ? right colon Procedure ? right hemicolectomy Tumor site ? right colon Tumor size ? 2.5 x 2 x 0.5 cm Macroscopic tumor perforation ? not identified Histologic type - adenocarcinoma Histologic grade ? low-grade (moderately differentiated) Microscopic tumor extension ? tumor invades through the muscularis propria to the subserosal adipose tissue. Tumor is located 3 cm from its closest (distal) mucosal margin of excision. Margins: Proximal margin ? uninvolved by invasive carcinoma. Distal margin - uninvolved by invasive carcinoma. Circumferential or mesenteric margin - uninvolved by invasive carcinoma. Treatment effect - unknown Lymph-Vascular invasion ? not identified. Perineural invasion ? not identified Tumor deposits - not identified Lymph nodes: Number of lymph nodes examined - 39 Number of lymph nodes involved - 1 Additional pathologic findings ? largest polyp close to ileocecal valve with focal high-grade dysplasia. Two smaller polyps ? tubular adenoma Appendix ? fibrous obliteration of distal appendix and focal hyperplastic mucosal change. Ancillary studies: Microsatellite instability - Negative (no loss of mismatch protein; no microsatellite instability detected). Immunohistochemistry studies for mismatch repair proteins: MLH1 - Intact nuclear positivity, tumor cells MSH2 - Intact nuclear positivity, tumor cells MSH6 - Intact nuclear positivity, tumor cells PMS2 - Intact nuclear positivity, tumor cells PATHOLOGIC STAGE: pT3 N1a Mx Was seen by cardiology. Was told okay to stay off Plavix. Continuing ASA daily. Previous therapy: 1) CAPOX. Significant early onset of rather extreme neurologic symptoms following second dose. He required hospitalization overnight observation due to the laryngeal dysesthesia--started in feet right after infusion. Immediately went to knees when he stood up out of chair. By the time he got home (very hot that day; >85 degrees) had feeling of cutting glass from throat to stomach when tried to swallow. Had sensation of severe pain in throat. Couldn't talk. Current therapy: 1) Capecitabine. Presents for ongoing oncologic management. Interim history: Significant HFS reaction of feet this cycle. Eyes feel dry. No nausea with use of Zofran. Stopped last week after completed cycle. Bowels moving regularly and normally. Good appetite. No abdominal pain, bloating or distention. No episodes jaundice. No symptoms of neuropathy. PMH, medications and allergies personally reviewed by me today. Any changes documented in appropriate section. ROS: Constitutional: Denies episodes of fever and night sweats. Neuro: Denies LEWIS, vertigo, dizziness and imbalance. Denies symptoms of neuropathy. HEENT: No recent change in voice, vision or hearing. Resp: Denies cough, wheeze and hemoptysis. CVS: Denies PND, orthopnea. GI: See above. : Denies dysuria or gross hematuria. No symptoms of bladder outlet obstruction. Endo: Denies hot flashes. Denies polyuria and polydipsia. Denies heat and cold intolerance. Musculoskeletal: Denies bone, joint, back and muscular pain. Derm: See above. Heme: Denies unusual bleeding and unexplained bruising. Psych: Normal mood. PHYSICAL EXAM: Vitals: Blood pressure 165/85, pulse 66, temperature 36.6 ?C (97.9 ?F), weight 111.8 kg (246 lb 8 oz). Well-appearing and in no acute distress. EYES: Sclerae are anicteric bilaterally. NECK: Supple. LYMPHATIC: There is no palpable cervical, supraclavicular adenopathy. RESPIRATORY: Inspiratory breath sounds are of normal intensity in all monroy. No rales, wheezes or rhonchi. Expiratory phase is normal. CARDIOVASCULAR: Rhythm is regular. Normal intensity S1/S2. There is no gallop or murmur. ABDOMEN: The abdomen is nondistended. No organomegaly. No tenderness. Extremities: No swelling or edema. SKIN: Resolving areas of desquamation of the feet. NEUROLOGIC: open cut examiner II-XII are grossly intact. No focal motor weakness. MUSCULOSKELETAL: No joint swelling or tenderness. No muscle wasting. 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 -Pathologic staging previously completed in problem list. -Significant reaction to oxaliplatin. -Tolerated capecitabine well with exception hand-foot skin reaction. -Discussed follow up plan: will need SCP in a few weeks. Office visit every 3-6 months for first 2 years and every 6 months for a total of 5 years. CEA every 3-6 months ?2 years and every 6 months for a total of [address] scan of chest, abdomen and pelvis every 6 months for the first 2 years then annually up to year 5. Colonoscopy approximately 1 year after surgery. Plan: -Schedule SCP. -Recommended preservative-free moisturizing eyedrops prn. -Due for colonoscopy in February. -OV/labs in about 3 months. -CT in about 6 months. Esteban Ramos, DO CBC W/DIFF, AUTOMATED Collected: 10/08/2018 Status: F Source: [place] 7:27 AM [facility] REPOSITORY TYPE CODE TESTS RESULT OUT OF RANGE REFERENCE UNITS LAB L100.1000 4.4-11.0 K/mm3 Low WBC 4.3 LAB L100.1200 4.6-6.2 M/mm3 Low RBC 4.21 LAB L100.1300 13.0-16.5 g/dl Normal HGB 15.1 LAB L100.1400 40-54 % Normal HCT 44.5 LAB L100.1500 80-94 fL High MCV 105.7 LAB L100.1600 27.0-32.0 pg High MCH 35.9 LAB L100.1700 32-36 g/gl Normal MCHC 33.9 LAB L100.1810 11.6-14.6 % High RDW CV 17.5 LAB L100.1820 35.1-43.9 fl High RDW SD 66.2 LAB L100.1900 150-450 K/mm3 Low PLT 143 LAB L100.2000 6.2-12.0 fl Normal MPV 9.3 LAB L100.2100 47-70 % Normal NEUT% 64.1 LAB L100.2200 19-41 % Normal LY% 23.0 LAB L100.2300 0-10 % Normal MONO% 9.6 LAB L100.2400 0-5 % Normal EO% 1.9 LAB L100.2500 0-1 % Normal BASO% 0.2 LAB L100.2550 0.0-0.9 % High IM GRAN % 1.200 Result Comment: IG% - Immature Granulocytes (promyelocytes, myelocytes and metamyelocytes) > 1% indicates that a LEFT SHIFT is Present. LAB L100.2620 2.0-7.7 X10 3/uL Normal Absolute Neut 2.7 LAB L100.2720 0.83-4.51 X10 3/ul Normal Absolute Lymph 0.98 LAB L100.5500 ADEQ Normal PLT EST [facility] L100.7000 NORM C AND C NORMAL Normal RED CELL MORPH N CHROM LAB L100.7300 Normal ANISO 1+ LAB L100.7800 Normal MACROCYTE 2+ Performed By: #### L100.0100 #### [facility] [address] [place], [address] COMPREHENSIVE METABOLIC Collected: 10/08/2018 Status: F Source: [facility] 7:27 AM [facility] REPOSITORY TYPE CODE TESTS RESULT OUT OF RANGE REFERENCE UNITS LAB L501.0100 74-106 mg/dL Normal GLU 106 Result Comment: Fasting Glucose result from 100 to 125 mg/dL suggests IMPAIRED HOMEOSTASIS per A.D.A. criteria. Please note revised GLUCOSE reference range effective 2017. LAB L501.1000 7-18 mg/dL Normal BUN 11 LAB L501.1100 0.70-1.30 mg/dL Normal CREAT,SERUM 1.20 Result Comment: The validity of the calculated GFR AND GFRAA in patients over 70 years has not been determined. Clinical correlation is essential. LAB L501.1110 >60 mL/min Normal EST GFR 64 Result Comment: Non- GFR Calc LAB L501.1115 >60 mL/min Normal EST GFR - AA 78 Result Comment: GFR Calc LAB L501.1300 10-20 RATIO Low BUN/CRE 9.2 LAB L501.1500 6.4-8.2 g/dL Normal T PROT 7.5 LAB L501.1800 3.2-5.0 g/dL Normal ALB 4.2 LAB L501.1950 2.2-4.2 g/dL Normal GLOB 3.3 LAB L501.2000 0.9-2.4 RATIO Normal A/G 1.3 LAB L501.2200 8.5-10.1 mg/dL Normal CA 8.9 LAB L501.4100 15-37 U/L High AST 42 Result Comment: Slight Hemolysis, Result may be falsely increased. LAB L501.4305 45-117 U/L Normal ALK P 81 LAB L501.4405 16-61 U/L High ALT 73 LAB L501.4600 0.20-1.00 mg/dL Normal T BILI 0.80 LAB L501.5300 136-145 mmol/L Normal NA 142 LAB L501.5600 3.5-5.1 mmol/L Normal K 3.9 Result Comment: Slight Hemolysis, Result may be falsely increased. LAB L501.5900 98-107 mmol/L High CL 108 LAB L501.6100 21.0-32.0 mmol/L Normal CO2 24.0 LAB L501.6200 5-15 Normal GAP 10 Performed By: #### L500.4050 #### [facility] [address] [place], [place] [address], [address] CBC W/DIFF, AUTOMATED Collected: 09/17/2018 Status: F Source: [place] 6:46 AM [facility] REPOSITORY TYPE CODE TESTS RESULT OUT OF RANGE REFERENCE UNITS LAB L100.1000 4.4-11.0 K/mm3 Low WBC 3.7 LAB L100.1200 4.6-6.2 M/mm3 Low RBC 4.21 LAB L100.1300 13.0-16.5 g/dl Normal HGB 14.9 LAB L100.1400 40-54 % Normal HCT 44.0 LAB L100.1500 80-94 fL High MCV 104.5 LAB L100.1600 27.0-32.0 pg High MCH 35.4 LAB L100.1700 32-36 g/gl Normal MCHC 33.9 LAB L100.1810 11.6-14.6 % High RDW CV 18.1 LAB L100.1820 35.1-43.9 fl High RDW SD 67.9 LAB L100.1900 150-450 K/mm3 Low PLT 136 LAB L100.2000 6.2-12.0 fl Normal MPV 9.0 LAB L100.2100 47-70 % Normal NEUT% 58.1 LAB L100.2200 19-41 % Normal LY% 25.3 LAB L100.2300 0-10 % High MONO% 14.2 LAB L100.2400 0-5 % Normal EO% 1.6 LAB L100.2500 0-1 % Normal BASO% 0.3 LAB L100.2550 0.0-0.9 % Normal IM GRAN % 0.500 Result Comment: IG% - Immature Granulocytes (promyelocytes, myelocytes and metamyelocytes) > 1% indicates that a LEFT SHIFT is Present. LAB L100.2620 2.0-7.7 X10 3/uL Normal Absolute Neut 2.1 LAB L100.2720 0.83-4.51 X10 3/ul Normal Absolute Lymph 0.93 LAB L100.4500 Normal SMEAR COMMENT COMMENT Result Comment: SLIDE SCANNED - 1+ ANISO. Performed By: #### L100.0100 #### [facility] [address] [place], [place], [address] COMPREHENSIVE METABOLIC Collected: 09/17/2018 Status: F Source: [facility] 6:46 AM [facility] REPOSITORY TYPE CODE TESTS RESULT OUT OF RANGE REFERENCE UNITS LAB L501.0100 74-106 mg/dL Normal GLU 103 Result Comment: Fasting Glucose result from 100 to 125 mg/dL suggests IMPAIRED HOMEOSTASIS per A.D.A. criteria. Please note revised GLUCOSE reference range effective 2017. LAB L501.1000 7-18 mg/dL Normal BUN 12 LAB L501.1100 0.70-1.30 mg/dL Normal CREAT,SERUM 1.19 Result Comment: The validity of the calculated GFR AND GFRAA in patients over 70 years has not been determined. Clinical correlation is essential. LAB L501.1110 >60 mL/min Normal EST GFR 65 Result Comment: Non- GFR Calc LAB L501.1115 >60 mL/min Normal EST GFR - AA 78 Result Comment: GFR Calc LAB L501.1300 10-20 RATIO Normal BUN/CRE 10.1 LAB L501.1500 6.4-8.2 g/dL T Normal PROT 7.5 LAB L501.1800 3.2-5.0 g/dL Normal ALB 4.3 LAB L501.1950 2.2-4.2 g/dL Normal GLOB 3.2 LAB L501.2000 0.9-2.4 RATIO Normal A/G 1.3 LAB L501.2200 8.5-10.1 mg/dL CA Normal 9.0 LAB L501.4100 15-37 U/L High AST 43 LAB L501.4305 45-117 U/L Normal ALK P 77 LAB L501.4405 16-61 U/L High ALT 86 LAB L501.4600 0.20-1.00 mg/dL T Normal BILI 0.90 LAB L501.5300 136-145 mmol/L NA Normal 143 LAB L501.5600 3.5-5.1 mmol/L K Normal 3.7 LAB L501.5900 98-107 mmol/L CL Normal 104 LAB L501.6100 21.0-32.0 mmol/L Normal CO2 29.0 LAB L501.6200 5-15 Normal GAP 10 Performed By: #### L500.4050 #### [facility] [address] [place] [address]. [place], [place], [address] PROGRESS Observed: 08/28/2018 Status: COMPLETED Source: [place] 10:[address] [facility] REPOSITORY [facility] ID: [id number] Author: Esteban Ramos Service: (none) Author Type: Physician Type: Progress Notes Filed: 08/28/2018 11:14 AM Note Text: Diagnosis: 1) Stage IIIA colon cancer. HPI: The patient is a 68 yo male HTN and CAD (SC 2017; 2 stents RCA). Patient was on ASA and Plavix. Had episode rectal bleeding without previous bleeding. Went to ED where bleeding continued. Admitted. MICROSCOPIC DIAGNOSIS A. Right colon, hemicolectomy: Invasive adenocarcinoma. See complete cancer checklist below. B. Soft tissue of umbilical region, excision: Fragment of fibrofatty tissue with mild fibrosis consistent with hernia sac. No evidence of malignancy. COMMENT COLON CANCER SUMMARY: Specimen ? right colon Procedure ? right hemicolectomy Tumor site ? right colon Tumor size ? 2.5 x 2 x 0.5 cm Macroscopic tumor perforation ? not identified Histologic type - adenocarcinoma Histologic grade ? low-grade (moderately differentiated) Microscopic tumor extension ? tumor invades through the muscularis propria to the subserosal adipose tissue. Tumor is located 3 cm from its closest (distal) mucosal margin of excision. Margins: Proximal margin ? uninvolved by invasive carcinoma. Distal margin - uninvolved by invasive carcinoma. Circumferential or mesenteric margin - uninvolved by invasive carcinoma. Treatment effect - unknown Lymph-Vascular invasion ? not identified. Perineural invasion ? not identified Tumor deposits - not identified Lymph nodes: Number of lymph nodes examined - 39 Number of lymph nodes involved - 1 Additional pathologic findings ? largest polyp close to ileocecal valve with focal high-grade dysplasia. Two smaller polyps ? tubular adenoma Appendix ? fibrous obliteration of distal appendix and focal hyperplastic mucosal change. Ancillary studies: Microsatellite instability - Negative (no loss of mismatch protein; no microsatellite instability detected). Immunohistochemistry studies for mismatch repair proteins: MLH1 - Intact nuclear positivity, tumor cells MSH2 - Intact nuclear positivity, tumor cells MSH6 - Intact nuclear positivity, tumor cells PMS2 - Intact nuclear positivity, tumor cells PATHOLOGIC STAGE: pT3 N1a Mx Was seen by cardiology. Was told okay to stay off Plavix. Continuing ASA daily. Previous therapy: 1) CAPOX. Significant early onset of rather extreme neurologic symptoms following second dose. He required hospitalization overnight observation due to the laryngeal dysesthesia--started in feet right after infusion. Immediately went to knees when he stood up out of chair. By the time he got home (very hot that day; >85 degrees) had feeling of cutting glass from throat to stomach when tried to swallow. Had sensation of severe pain in throat. Couldn't talk. Current therapy: 1) Capecitabine. Presents for ongoing oncologic management. Interim history: Doing well with 1500 mg BID dosing. Had flare of HFS in feet and nausea throughout this week. No symptoms of neuropathy. PMH, medications and allergies personally reviewed by me today. Any changes documented in appropriate section. ROS: Constitutional: Denies episodes of fever and night sweats. Neuro: Denies LEWIS, vertigo, dizziness and imbalance. Denies symptoms of neuropathy. HEENT: No recent change in voice, vision or hearing. Resp: Denies cough, wheeze and hemoptysis. CVS: Denies PND, orthopnea. GI: See above. : Denies dysuria or gross hematuria. No symptoms of bladder outlet obstruction. Endo: Denies hot flashes. Denies polyuria and polydipsia. Denies heat and cold intolerance. Musculoskeletal: Denies bone, joint, back and muscular pain. Derm: See above. Heme: Denies unusual bleeding and unexplained bruising. Psych: Normal mood. PHYSICAL EXAM: Vitals: Blood pressure 149/82, pulse 60, temperature 36.8 ?C (98.3 ?F), temperature source Temporal Artery, weight 108.2 kg (238 lb 8 oz). Well-appearing and in no acute distress. EYES: Sclerae are anicteric bilaterally. NECK: Supple. LYMPHATIC: There is no palpable cervical, supraclavicular adenopathy. RESPIRATORY: Inspiratory breath sounds are of normal intensity in all [place]roy. No rales, wheezes or rhonchi. Expiratory phase is normal. CARDIOVASCULAR: Rhythm is regular. Normal intensity S1/S2. There is no gallop or murmur. ABDOMEN: The abdomen is nondistended. No organomegaly. No tenderness. Extremities: No swelling or edema. SKIN: No jaundice or rash. No petechiae. NEUROLOGIC: open cut examiner II-XII are grossly intact. No focal motor weakness. MUSCULOSKELETAL: No joint swelling or tenderness. No muscle wasting. 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 -Pathologic staging previously completed in problem list. -Significant reaction to oxaliplatin. Plan: -Continue capecitabine at 1500 mg in am and keep 1500 mg pm. -Will complete 6 months of therapy--due to finish in October. Esteban Ramos DO CNOVSP Observed: 08/28/2018 Status: COMPLETED Source: [place] 10:[address] [facility] REPOSITORY Visit (SP) Office ([place]) MYRNA JORGENSEN ([id number]) 1950 M Date Time Provider Department 08/28/18 10:30 AM ESTEBAN RAMOS During your visit today, we recorded the following information about you: Temperature Pulse Blood pressure Weight 98.3 degrees 60/minute 149/82 108.2 kg Meryl Amaral LPN 08/28/2018 10:55 AM Signed Est patient. Three week office visit. Discuss recent labs. Meryl Ramos DO 08/28/2018 11:14 AM Signed Diagnosis: 1) Stage IIIA colon cancer. HPI: The patient is a 68 yo male HTN and CAD (SC 2017; 2 stents RCA). Patient was on ASA and Plavix. Had episode rectal bleeding without previous bleeding. Went to ED where bleeding continued. Admitted. MICROSCOPIC DIAGNOSIS A. Right colon, hemicolectomy: Invasive adenocarcinoma. See complete cancer checklist below. B. Soft tissue of umbilical region, excision: Fragment of fibrofatty tissue with mild fibrosis consistent with hernia sac. No evidence of malignancy. COMMENT COLON CANCER SUMMARY: Specimen ? right colon Procedure ? right hemicolectomy Tumor site ? right colon Tumor size ? 2.5 x 2 x 0.5 cm Macroscopic tumor perforation ? not identified Histologic type - adenocarcinoma Histologic grade ? low-grade (moderately differentiated) Microscopic tumor extension ? tumor invades through the muscularis propria to the subserosal adipose tissue. Tumor is located 3 cm from its closest (distal) mucosal margin of excision. Margins: Proximal margin ? uninvolved by invasive carcinoma. Distal margin - uninvolved by invasive carcinoma. Circumferential or mesenteric margin - uninvolved by invasive carcinoma. Treatment effect - unknown Lymph-Vascular invasion ? not identified. Perineural invasion ? not identified Tumor deposits - not identified Lymph nodes: Number of lymph nodes examined - 39 Number of lymph nodes involved - 1 Additional pathologic findings ? largest polyp close to ileocecal valve with focal high-grade dysplasia. Two smaller polyps ? tubular adenoma Appendix ? fibrous obliteration of distal appendix and focal hyperplastic mucosal change. Ancillary studies: Microsatellite instability - Negative (no loss of mismatch protein; no microsatellite instability detected). Immunohistochemistry studies for mismatch repair proteins: MLH1 - Intact nuclear positivity, tumor cells MSH2 - Intact nuclear positivity, tumor cells MSH6 - Intact nuclear positivity, tumor cells PMS2 - Intact nuclear positivity, tumor cells PATHOLOGIC STAGE: pT3 N1a Mx Was seen by cardiology. Was told okay to stay off Plavix. Continuing ASA daily. Previous therapy: 1) CAPOX. Significant early onset of rather extreme neurologic symptoms following second dose. He required hospitalization overnight observation due to the laryngeal dysesthesia--started in feet right after infusion. Immediately went to knees when he stood up out of chair. By the time he got home (very hot that day; >85 degrees) had feeling of cutting glass from throat to stomach when tried to swallow. Had sensation of severe pain in throat. Couldn't talk. Current therapy: 1) Capecitabine. Presents for ongoing oncologic management. Interim history: Doing well with 1500 mg BID dosing. Had flare of HFS in feet and nausea throughout this week. No symptoms of neuropathy. PMH, medications and allergies personally reviewed by me today. Any changes documented in appropriate section. ROS: Constitutional: Denies episodes of fever and night sweats. Neuro: Denies LEWIS, vertigo, dizziness and imbalance. Denies symptoms of neuropathy. HEENT: No recent change in voice, vision or hearing. Resp: Denies cough, wheeze and hemoptysis. CVS: Denies PND, orthopnea. GI: See above. : Denies dysuria or gross hematuria. No symptoms of bladder outlet obstruction. Endo: Denies hot flashes. Denies polyuria and polydipsia. Denies heat and cold intolerance. Musculoskeletal: Denies bone, joint, back and muscular pain. Derm: See above. Heme: Denies unusual bleeding and unexplained bruising. Psych: Normal mood. PHYSICAL EXAM: Vitals: Blood pressure 149/82, pulse 60, temperature 36.8 ?C (98.3 ?F), temperature source Temporal Artery, weight 108.2 kg (238 lb 8 oz). Well-appearing and in no acute distress. EYES: Sclerae are anicteric bilaterally. NECK: Supple. LYMPHATIC: There is no palpable cervical, supraclavicular adenopathy. RESPIRATORY: Inspiratory breath sounds are of normal intensity in all monroy. No rales, wheezes or rhonchi. Expiratory phase is normal. CARDIOVASCULAR: Rhythm is regular. Normal intensity S1/S2. There is no gallop or murmur. ABDOMEN: The abdomen is nondistended. No organomegaly. No tenderness. Extremities: No swelling or edema. SKIN: No jaundice or rash. No petechiae. NEUROLOGIC: open cut examiner II-XII are grossly intact. No focal motor weakness. MUSCULOSKELETAL: No joint swelling or tenderness. No muscle wasting. 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 -Pathologic staging previously completed in problem list. -Significant reaction to oxaliplatin. Plan: -Continue capecitabine at 1500 mg in am and keep 1500 mg pm. -Will complete 6 months of therapy--due to finish in October. Esteban Ramos DO Referring Provider: CHRIS FERREIRA [[id number]] Allergies As of Date: 08/28/2018 Noted Allergy Reaction OXALIPLATIN 06/04/2018 5 - Intolerance Comments: Difficulty swallowing PRILOSEC (OMEPRAZOLE) 09/20/2005 ZYPREXA (OLANZAPINE) 07/19/2018 14 - Other: See Comments Comments: muscle twitching Date Reviewed: 08/28/2018 Reviewed by: Mreyl Amaral LPN - Fully Assessed Reason for Visit: Established Patient [175] Primary Visit Diagnosis:Cancer of cecum (HCC) [C18.0] Other Visit Diagnosis:Metastatic cancer to intra-abdominal lymph nodes (HCC) [C77.2] Follow-up and Disposition History Recorded Prescriptions as of 08/28/2018 Sig: ASPIRIN 81 MG TABLET,DELAYED * Take 81 mg by mouth once curtis* ATORVASTATIN 80 MG TABLET Take 80 mg by mouth once curtis* CAPECITABINE 500 MG TABLET Take 3 tablets by mouth twice* GLUCOSAMINE [id number]* Take 1 tablet by mouth once d* ISOSORBIDE MONONITRATE ER 30 * Take 30 mg by mouth once curtis* LISINOPRIL 20 MG TABLET Take 20 mg by mouth once curtis* METOPROLOL TARTRATE 25 MG TAB* Take 25 mg by mouth twice cely* MULTIPLE VITAMIN ORAL Take 1 tablet by mouth once d* ONDANSETRON HCL 8 MG TABLET Take 1 tablet by mouth every * MIRALAX ORAL Take 1 scoop by mouth once da* METAMUCIL ORAL Take 2 Tablespoonsful by mout* RABEPRAZOLE 20 MG TABLET,MIA* Take 1 tablet by mouth once d* Patient taking differently: Take 20 mg by mouth twice cely* TAMSULOSIN 0.4 MG CAPSULE Take 1 capsule by mouth daily* TRIAMCINOLONE ACETONIDE 55 MC* Use 2 Sprays in the nose once* CYANOCOBALAMIN (VIT B-12) 500* 1 tablet once daily. VITAMIN B12 500 MCG-FOLIC ACI* 1 capsule once daily. OLANZAPINE 10 MG TABLET Take 1 tablet by mouth daily * Patient not taking: Reported on 06/26/2018 VITAMIN B-6 100 MG TABLET 1 tablet once daily. Problem List As Of Date 08/28/2018 Noted Resolved CALCULUS OF KIDNEY [N20.0] INVALID FOR* BENIGN HYPERTENSION [I10] INVALID FOR* HYPERLIPIDEMIA NEC/NOS [E78.5] INVALID FOR* ESOPHAGEAL REFLUX [K21.9] INVALID FOR* Vasomotor rhinitis [J30.0] INVALID FOR* BPH (benign prostatic hyperplasia) [N40.0] INVALID FOR* Cancer of cecum (HCC) [C18.0] INVALID FOR* Metastatic cancer to intra-abdominal lymph node*INVALID FOR* Iron deficiency anemia due to chronic blood los*INVALID FOR* Iron malabsorption [K90.9] INVALID FOR* Visit Notes: >> Meryl Mcfaralne Aug 28, 2018 10:43 AM Status: Signed Est patient. Three week office visit. Discuss recent labs. Meryl Amaral LPN Encounter Status:Closed by ESTEBAN RAMOS DO on 08/28/18 CBC W/DIFF, AUTOMATED Collected: 08/27/2018 Status: F Source: [place] 7:04 AM [facility] REPOSITORY TYPE CODE TESTS RESULT OUT OF RANGE REFERENCE UNITS LAB L100.1000 4.4-11.0 K/mm3 Low WBC 3.3 LAB L100.1200 4.6-6.2 M/mm3 Low RBC 4.19 LAB L100.1300 13.0-16.5 g/dl Normal HGB 14.6 LAB L100.1400 40-54 % Normal HCT 42.1 LAB L100.1500 80-94 fL High MCV 100.5 LAB L100.1600 27.0-32.0 pg High MCH 34.8 LAB L100.1700 32-36 g/gl Normal MCHC 34.7 LAB L100.1810 11.6-14.6 % High RDW CV 20.4 LAB L100.1820 35.1-43.9 fl High RDW SD 73.8 LAB L100.1900 150-450 K/mm3 Low PLT 60 LAB L100.2000 6.2-12.0 fl Normal MPV 9.3 LAB L100.2100 47-70 % Normal NEUT% 59.3 LAB L100.2200 19-41 % Normal LY% 24.5 LAB L100.2300 0-10 % High MONO% 13.8 LAB L100.2400 0-5 % Normal EO% 1.5 LAB L100.2500 0-1 % Normal BASO% 0.3 LAB L100.2550 0.0-0.9 % Normal IM GRAN % 0.600 Result Comment: IG% - Immature Granulocytes (promyelocytes, myelocytes and metamyelocytes) > 1% indicates that a LEFT SHIFT is Present. LAB L100.2620 2.0-7.7 X10 3/uL Low Absolute Neut 1.9 LAB L100.2720 0.83-4.51 X10 3/ul Low Absolute Lymph 0.80 LAB L100.4500 Normal SMEAR COMMENT COMMENT Result Comment: SLIDE SCANNED - 1+ ANISO. Performed By: #### L100.0100 #### [facility] [address] [place], [place], [address] COMPREHENSIVE METABOLIC Collected: 08/27/2018 Status: F Source: [facility] 7:04 AM [facility] REPOSITORY TYPE CODE TESTS RESULT OUT OF RANGE REFERENCE UNITS LAB L501.0100 74-106 mg/dL Normal GLU 92 Result Comment: Please note revised GLUCOSE reference range effective 2017. LAB L501.1000 7-18 mg/dL Normal BUN 11 LAB L501.1100 0.70-1.30 mg/dL Normal CREAT,SERUM 0.98 Result Comment: The validity of the calculated GFR AND GFRAA in patients over 70 years has not been determined. Clinical correlation is essential. LAB L501.1110 >60 mL/min Normal EST GFR 81 Result Comment: Non- GFR Calc LAB L501.1115 >60 mL/min Normal EST GFR - AA 98 Result Comment: GFR Calc LAB L501.1300 10-20 RATIO Normal BUN/CRE 11.3 LAB L501.1500 6.4-8.2 g/dL T Normal PROT 7.2 LAB L501.1800 3.2-5.0 g/dL Normal ALB 4.1 LAB L501.1950 2.2-4.2 g/dL Normal GLOB 3.1 LAB L501.2000 0.9-2.4 RATIO Normal A/G 1.3 LAB L501.2200 8.5-10.1 mg/dL CA Normal 8.8 LAB L501.4100 15-37 U/L High AST 42 Result Comment: Moderate Hemolysis, Result may be falsely increased. LAB L501.4305 45-117 U/L Normal ALK P 74 LAB L501.4405 16-61 U/L High ALT 62 LAB L501.4600 0.20-1.00 mg/dL Normal T BILI 0.90 LAB L501.5300 136-145 mmol/L Normal NA 140 LAB L501.5600 3.5-5.1 mmol/L Normal K 4.0 Result Comment: Moderate Hemolysis, Result may be falsely increased. LAB L501.5900 98-107 mmol/L High CL 109 LAB L501.6100 21.0-32.0 mmol/L Normal CO2 22.0 LAB L501.6200 5-15 Normal 9 GAP Performed By: #### L500.4050 #### [facility] [address] [facility] [place], [address] PROGRESS Observed: 08/07/2018 Status: COMPLETED Source: [place] 2:[address] [facility] REPOSITORY [facility] ID: [id number] Author: Esteban Ramos Service: (none) Author Type: Physician Type: Progress Notes Filed: 08/07/2018 2:32 PM Note Text: Diagnosis: 1) Stage IIIA colon cancer. HPI: The patient is a 68 yo male HTN and CAD (SC 2017; 2 stents RCA). Patient was on ASA and Plavix. Had episode rectal bleeding without previous bleeding. Went to ED where bleeding continued. Admitted. MICROSCOPIC DIAGNOSIS A. Right colon, hemicolectomy: Invasive adenocarcinoma. See complete cancer checklist below. B. Soft tissue of umbilical region, excision: Fragment of fibrofatty tissue with mild fibrosis consistent with hernia sac. No evidence of malignancy. COMMENT COLON CANCER SUMMARY: Specimen ? right colon Procedure ? right hemicolectomy Tumor site ? right colon Tumor size ? 2.5 x 2 x 0.5 cm Macroscopic tumor perforation ? not identified Histologic type - adenocarcinoma Histologic grade ? low-grade (moderately differentiated) Microscopic tumor extension ? tumor invades through the muscularis propria to the subserosal adipose tissue. Tumor is located 3 cm from its closest (distal) mucosal margin of excision. Margins: Proximal margin ? uninvolved by invasive carcinoma. Distal margin - uninvolved by invasive carcinoma. Circumferential or mesenteric margin - uninvolved by invasive carcinoma. Treatment effect - unknown Lymph-Vascular invasion ? not identified. Perineural invasion ? not identified Tumor deposits - not identified Lymph nodes: Number of lymph nodes examined - 39 Number of lymph nodes involved - 1 Additional pathologic findings ? largest polyp close to ileocecal valve with focal high-grade dysplasia. Two smaller polyps ? tubular adenoma Appendix ? fibrous obliteration of distal appendix and focal hyperplastic mucosal change. Ancillary studies: Microsatellite instability - Negative (no loss of mismatch protein; no microsatellite instability detected). Immunohistochemistry studies for mismatch repair proteins: MLH1 - Intact nuclear positivity, tumor cells MSH2 - Intact nuclear positivity, tumor cells MSH6 - Intact nuclear positivity, tumor cells PMS2 - Intact nuclear positivity, tumor cells PATHOLOGIC STAGE: pT3 N1a Mx Was seen by cardiology. Was told okay to stay off Plavix. Continuing ASA daily. Previous therapy: 1) CAPOX. Significant early onset of rather extreme neurologic symptoms following second dose. He required hospitalization overnight observation due to the laryngeal dysesthesia--started in feet right after infusion. Immediately went to knees when he stood up out of chair. By the time he got home (very hot that day; >85 degrees) had feeling of cutting glass from throat to stomach when tried to swallow. Had sensation of severe pain in throat. Couldn't talk. Current therapy: 1) Capecitabine. Presents for ongoing oncologic management. Interim history: Doing well with 1500 mg BID dosing. Still gets HFS reaction of the soles of the feet during week #2. Nausea minimal and relieved with Zofran. Appetite very good. No abdominal pain, bloating or distension. No symptoms of neuropathy. PMH, medications and allergies personally reviewed by me today. Any changes documented in appropriate section. ROS: Constitutional: Denies episodes of fever and night sweats. Neuro: Denies LEWIS, vertigo, dizziness and imbalance. Denies symptoms of neuropathy. HEENT: No recent change in voice, vision or hearing. Resp: Denies cough, wheeze and hemoptysis. CVS: Denies PND, orthopnea. GI: See above. : Denies dysuria or gross hematuria. No symptoms of bladder outlet obstruction. Endo: Denies hot flashes. Denies polyuria and polydipsia. Denies heat and cold intolerance. Musculoskeletal: Denies bone, joint, back and muscular pain. Derm: See above. Heme: Denies unusual bleeding and unexplained bruising. Psych: Normal mood. PHYSICAL EXAM: Vitals: Blood pressure 156/88, pulse (!) 55, temperature 36.6 ?C (97.8 ?F), temperature source Temporal Artery, weight 107 kg (236 lb). Well-appearing and in no acute distress. EYES: Sclerae are anicteric bilaterally. NECK: Supple. LYMPHATIC: There is no palpable cervical, supraclavicular adenopathy. RESPIRATORY: Inspiratory breath sounds are of normal intensity in all [place]roy. No rales, wheezes or rhonchi. Expiratory phase is normal. CARDIOVASCULAR: Rhythm is regular. Normal intensity S1/S2. There is no gallop or murmur. ABDOMEN: The abdomen is nondistended. No organomegaly. No tenderness. Extremities: No swelling or edema. SKIN: No jaundice or rash. No petechiae. NEUROLOGIC: open cut examiner II-XII are grossly intact. No focal motor weakness. MUSCULOSKELETAL: No joint swelling or tenderness. No muscle wasting. 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 -Pathologic staging previously completed in problem list. -Significant reaction to oxaliplatin. Plan: -Continue capecitabine at 1500 mg in am and keep 1500 mg pm. -Will complete 6 months of therapy--due to finish in October. Esteban Ramos DO CNOVSP Observed: 08/07/2018 Status: COMPLETED Source: [place] 2:[address] [facility] REPOSITORY Visit (SP) Office ([place]IM[place]) MYRNA JORGENSEN ([id number]) 1950 M Date Time Provider Department 08/07/18 2:00 PM ESTEBAN RAMOS During your visit today, we recorded the following information about you: Temperature Pulse Blood pressure Weight 97.8 degrees 55/minute 156/88 107 kg Esteban Ramos DO 08/07/2018 2:32 PM Signed Diagnosis: 1) Stage IIIA colon cancer. HPI: The patient is a 68 yo male HTN and CAD (SC 2017; 2 stents RCA). Patient was on ASA and Plavix. Had episode rectal bleeding without previous bleeding. Went to ED where bleeding continued. Admitted. MICROSCOPIC DIAGNOSIS A. Right colon, hemicolectomy: Invasive adenocarcinoma. See complete cancer checklist below. B. Soft tissue of umbilical region, excision: Fragment of fibrofatty tissue with mild fibrosis consistent with hernia sac. No evidence of malignancy. COMMENT COLON CANCER SUMMARY: Specimen ? right colon Procedure ? right hemicolectomy Tumor site ? right colon Tumor size ? 2.5 x 2 x 0.5 cm Macroscopic tumor perforation ? not identified Histologic type - adenocarcinoma Histologic grade ? low-grade (moderately differentiated) Microscopic tumor extension ? tumor invades through the muscularis propria to the subserosal adipose tissue. Tumor is located 3 cm from its closest (distal) mucosal margin of excision. Margins: Proximal margin ? uninvolved by invasive carcinoma. Distal margin - uninvolved by invasive carcinoma. Circumferential or mesenteric margin - uninvolved by invasive carcinoma. Treatment effect - unknown Lymph-Vascular invasion ? not identified. Perineural invasion ? not identified Tumor deposits - not identified Lymph nodes: Number of lymph nodes examined - 39 Number of lymph nodes involved - 1 Additional pathologic findings ? largest polyp close to ileocecal valve with focal high-grade dysplasia. Two smaller polyps ? tubular adenoma Appendix ? fibrous obliteration of distal appendix and focal hyperplastic mucosal change. Ancillary studies: Microsatellite instability - Negative (no loss of mismatch protein; no microsatellite instability detected). Immunohistochemistry studies for mismatch repair proteins: MLH1 - Intact nuclear positivity, tumor cells MSH2 - Intact nuclear positivity, tumor cells MSH6 - Intact nuclear positivity, tumor cells PMS2 - Intact nuclear positivity, tumor cells PATHOLOGIC STAGE: pT3 N1a Mx Was seen by cardiology. Was told okay to stay off Plavix. Continuing ASA daily. Previous therapy: 1) CAPOX. Significant early onset of rather extreme neurologic symptoms following second dose. He required hospitalization overnight observation due to the laryngeal dysesthesia--started in feet right after infusion. Immediately went to knees when he stood up out of chair. By the time he got home (very hot that day; >85 degrees) had feeling of cutting glass from throat to stomach when tried to swallow. Had sensation of severe pain in throat. Couldn't talk. Current therapy: 1) Capecitabine. Presents for ongoing oncologic management. Interim history: Doing well with 1500 mg BID dosing. Still gets HFS reaction of the soles of the feet during week #2. Nausea minimal and relieved with Zofran. Appetite very good. No abdominal pain, bloating or distension. No symptoms of neuropathy. PMH, medications and allergies personally reviewed by me today. Any changes documented in appropriate section. ROS: Constitutional: Denies episodes of fever and night sweats. Neuro: Denies LEIWS, vertigo, dizziness and imbalance. Denies symptoms of neuropathy. HEENT: No recent change in voice, vision or hearing. Resp: Denies cough, wheeze and hemoptysis. CVS: Denies PND, orthopnea. GI: See above. : Denies dysuria or gross hematuria. No symptoms of bladder outlet obstruction. Endo: Denies hot flashes. Denies polyuria and polydipsia. Denies heat and cold intolerance. Musculoskeletal: Denies bone, joint, back and muscular pain. Derm: See above. Heme: Denies unusual bleeding and unexplained bruising. Psych: Normal mood. PHYSICAL EXAM: Vitals: Blood pressure 156/88, pulse (!) 55, temperature 36.6 ?C (97.8 ?F), temperature source Temporal Artery, weight 107 kg (236 lb). Well-appearing and in no acute distress. EYES: Sclerae are anicteric bilaterally. NECK: Supple. LYMPHATIC: There is no palpable cervical, supraclavicular adenopathy. RESPIRATORY: Inspiratory breath sounds are of normal intensity in all [place]roy. No rales, wheezes or rhonchi. Expiratory phase is normal. CARDIOVASCULAR: Rhythm is regular. Normal intensity S1/S2. There is no gallop or murmur. ABDOMEN: The abdomen is nondistended. No organomegaly. No tenderness. Extremities: No swelling or edema. SKIN: No jaundice or rash. No petechiae. NEUROLOGIC: open cut examiner II-XII are grossly intact. No focal motor weakness. MUSCULOSKELETAL: No joint swelling or tenderness. No muscle wasting. 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 -Pathologic staging previously completed in problem list. -Significant reaction to oxaliplatin. Plan: -Continue capecitabine at 1500 mg in am and keep 1500 mg pm. -Will complete 6 months of therapy--due to finish in October. Esteban Ramos DO Referring Provider: CHRIS FERREIRA [[id number]] Allergies As of Date: 08/07/2018 Noted Allergy Reaction OXALIPLATIN 06/04/2018 5 - Intolerance Comments: Difficulty swallowing PRILOSEC (OMEPRAZOLE) 09/20/2005 ZYPREXA (OLANZAPINE) 07/19/2018 14 - Other: See Comments Comments: muscle twitching Date Reviewed: 08/07/2018 Reviewed by: Patricia Guadarrama - Fully Assessed Reason for Visit: Established Patient [175] Visit Diagnoses:Cancer of cecum (HCC) [C18.0] Metastatic cancer to intra-abdominal lymph nodes (HCC) [C77.2] Order(s):ondansetron (ZOFRAN) 8 mg tabletTake 1 tablet by mouth every 8 hours as needed for Nausea/Vomiting (For chemotherapy induced nausea). FOR NAUSEADisp: 30 tabletRfl: 2 Follow-up and Disposition History Recorded Prescriptions as of 08/07/2018 Sig: ONDANSETRON HCL 8 MG TABLET Take 1 tablet by mouth every * CAPECITABINE 500 MG TABLET Take 3 tablets by mouth twice* MULTIPLE VITAMIN ORAL Take 1 tablet by mouth once d* METAMUCIL ORAL Take 2 Tablespoonsful by mout* GLUCOSAMINE [id number]* Take 1 tablet by mouth once d* TRIAMCINOLONE ACETONIDE 55 MC* Use 2 Sprays in the nose once* ASPIRIN 81 MG TABLET,DELAYED * Take 81 mg by mouth once curtis* ATORVASTATIN 80 MG TABLET Take 80 mg by mouth once curtis* ISOSORBIDE MONONITRATE ER 30 * Take 30 mg by mouth once curtis* LISINOPRIL 20 MG TABLET Take 20 mg by mouth once curtis* METOPROLOL TARTRATE 25 MG TAB* Take 25 mg by mouth twice cely* MIRALAX ORAL Take 1 scoop by mouth once da* TAMSULOSIN 0.4 MG CAPSULE Take 1 capsule by mouth daily* RABEPRAZOLE 20 MG TABLET,MIA* Take 1 tablet by mouth once d* Patient taking differently: Take 20 mg by mouth twice cely* VITAMIN B12 500 MCG-FOLIC ACI* 1 capsule once daily. CYANOCOBALAMIN (VIT B-12) 500* 1 tablet once daily. VITAMIN B-6 100 MG TABLET 1 tablet once daily. OLANZAPINE 10 MG TABLET Take 1 tablet by mouth daily * Patient not taking: Reported on 06/26/2018 Problem List As Of Date 08/07/2018 Noted Resolved CALCULUS OF KIDNEY [N20.0] INVALID FOR* BENIGN HYPERTENSION [I10] INVALID FOR* HYPERLIPIDEMIA NEC/NOS [E78.5] INVALID FOR* ESOPHAGEAL REFLUX [K21.9] INVALID FOR* Vasomotor rhinitis [J30.0] INVALID FOR* BPH (benign prostatic hyperplasia) [N40.0] INVALID FOR* Cancer of cecum (HCC) [C18.0] INVALID FOR* Metastatic cancer to intra-abdominal lymph node*INVALID FOR* Iron deficiency anemia due to chronic blood los*INVALID FOR* Iron malabsorption [K90.9] INVALID FOR* Encounter Status:Closed by ESTEBAN RAMOS DO on 08/07/18 CBC W/DIFF, AUTOMATED Collected: 08/06/2018 Status: F Source: [place] 6:49 AM [facility] REPOSITORY TYPE CODE TESTS RESULT OUT OF RANGE REFERENCE UNITS LAB L100.1000 4.4-11.0 K/mm3 Low WBC 3.8 LAB L100.1200 4.6-6.2 M/mm3 Low RBC 4.33 LAB L100.1300 13.0-16.5 g/dl Normal HGB 14.1 LAB L100.1400 40-54 % Normal HCT 42.0 LAB L100.1500 80-94 fL High MCV 97.0 LAB L100.1600 27.0-32.0 pg High MCH 32.6 LAB L100.1700 32-36 g/gl Normal MCHC 33.6 LAB L100.1810 11.6-14.6 % High RDW CV 25.1 LAB L100.1820 35.1-43.9 fl High RDW SD 89.6 LAB L100.1900 150-450 K/mm3 Low PLT 135 LAB L100.2000 6.2-12.0 fl Normal MPV 8.8 LAB L100.2100 47-70 % Normal NEUT% 60.5 LAB L100.2200 19-41 % Normal LY% 22.1 LAB L100.2300 0-10 % High MONO% 13.9 LAB L100.2400 0-5 % Normal EO% 2.1 LAB L100.2500 0-1 % Normal BASO% 0.3 LAB L100.2550 0.0-0.9 % High IM GRAN % 1.100 Result Comment: IG% - Immature Granulocytes (promyelocytes, myelocytes and metamyelocytes) > 1% indicates that a LEFT SHIFT is Present. LAB L100.2620 2.0-7.7 X10 3/uL Normal Absolute Neut 2.3 LAB L100.2720 0.83-4.51 X10 3/ul Normal Absolute Lymph 0.83 LAB L100.7300 Normal ANISO 1+ LAB L100.7900 Normal BASO STIP RARE Performed By: #### L100.0100 #### [facility] [address] [place], [place], [address] COMPREHENSIVE METABOLIC Collected: 08/06/2018 Status: F Source: [facility] 6:49 AM [facility] REPOSITORY TYPE CODE TESTS RESULT OUT OF RANGE REFERENCE UNITS LAB L501.0100 74-106 mg/dL Normal GLU 105 Result Comment: Fasting Glucose result from 100 to 125 mg/dL suggests IMPAIRED HOMEOSTASIS per A.D.A. criteria. Please note revised GLUCOSE reference range effective 2017. LAB L501.1000 7-18 mg/dL Normal BUN 9 LAB L501.1100 0.70-1.30 mg/dL Normal CREAT,SERUM 1.01 Result Comment: The validity of the calculated GFR AND GFRAA in patients over 70 years has not been determined. Clinical correlation is essential. LAB L501.1110 >60 mL/min Normal EST GFR 78 Result Comment: Non- GFR Calc LAB L501.1115 >60 mL/min Normal EST GFR - AA 95 Result Comment: GFR Calc LAB L501.1300 10-20 RATIO Low BUN/CRE 8.9 LAB L501.1500 6.4-8.2 g/dL Normal T PROT 7.6 LAB L501.1800 3.2-5.0 g/dL Normal ALB 4.3 LAB L501.1950 2.2-4.2 g/dL Normal GLOB 3.3 LAB L501.2000 0.9-2.4 RATIO Normal A/G 1.3 LAB L501.2200 8.5-10.1 mg/dL Normal CA 8.7 LAB L501.4100 15-37 U/L Normal AST 30 LAB L501.4305 45-117 U/L Normal ALK P 83 LAB L501.4405 16-61 U/L High ALT 62 LAB L501.4600 0.20-1.00 mg/dL Normal T BILI 0.80 LAB L501.5300 136-145 mmol/L Normal NA 142 LAB L501.5600 3.5-5.1 mmol/L Normal K 3.9 LAB L501.5900 98-107 mmol/L High CL 108 LAB L501.6100 21.0-32.0 mmol/L Normal CO2 27.0 LAB L501.6200 5-15 Normal GAP 7 Performed By: #### L500.4050 #### [facility] [address] [place], [address] PROGRESS Observed: 07/19/2018 Status: COMPLETED Source: [place] 7:06 PM [facility] [place] REPOSITORY HNO ID: [id number] Author: Chris Ferreira Service: (none) Author Type: Physician Type: Progress Notes Filed: 07/19/2018 7:09 PM Note Text: FOLLOW UP VISIT - POST OP COLON CANCER NAME: Myrna Jorgensen [facility] NO.: [id number] DATE OF SERVICE: July 19, 2018 : 1950 REFERRING PHYSICIAN: Shlomo Dudley DO Myrna is a patient I am following for a mid transverse colon colon cancer. The patient is a 68 year old male with a complaint of rectal bleeding. The patient has a history of coronary artery disease. He had 2 stents placed last April. He is chronically on Plavix and aspirin. The patient presented to [facility] last week with rectal bleeding. He was admitted to the medicine service. A CT scan of the abdomen and pelvis was obtained which demonstrated no specific abnormalities in the liver. There was felt to be thickening in the mid transverse colon. My partner, Lorenza Cueva was consulted. She performed upper and lower endoscopy on March 15, 2018. Upper endoscopy demonstrated very mild antritis and benign gastric fundic polyps. Colonoscopy was performed and at the mid transverse colon a fungating mass was identified. Multiple biopsies were obtained. Luis ink was injected for identification and a clip was placed to better localize this abnormality. Postprocedure KUB was obtained which demonstrated the clip just to the right of the midline vertebral structures. Pathology returned this morning. Pathology demonstrated: MICROSCOPIC DIAGNOSIS A. Antral biopsy: Mild gastritis. B. Gastric polyp, biopsy: Fundic gland polyp. C. Transverse colon mass, biopsy: Invasive moderately differentiated adenocarcinoma. See comment. The patient was seen in the hospital by his bladder tier, Dr. Esteban Grigsby. Dr. Grigsby felt that overall, the patient was a reasonable risk for surgical intervention locally. He was comfortable holding both his aspirin and his plavix. I performed a laparoscopic extended right hemicolectomy on March 20, 2018. The patient did well and was discharged home on March 23. He did note some dizziness the day after discharge, but we held his beta mandeep and he has been doing well since. The pathology demonstrated: MICROSCOPIC DIAGNOSIS A. Right colon, hemicolectomy: Invasive adenocarcinoma. See complete cancer checklist below. B. Soft tissue of umbilical region, excision: Fragment of fibrofatty tissue with mild fibrosis consistent with hernia sac. No evidence of malignancy. AM:claudio 03/26/18 COMMENT COLON CANCER SUMMARY: Specimen ? right colon Procedure ? right hemicolectomy Tumor site ? right colon Tumor size ? 2.5 x 2 x 0.5 cm Macroscopic tumor perforation ? not identified Histologic type - adenocarcinoma Histologic grade ? low-grade (moderately differentiated) Microscopic tumor extension ? tumor invades through the muscularis propria to the subserosal adipose tissue. Tumor is located 3 cm from its closest (distal) mucosal margin of excision. Margins: Proximal margin ? uninvolved by invasive carcinoma. Distal margin - uninvolved by invasive carcinoma. Circumferential or mesenteric margin - uninvolved by invasive carcinoma. Treatment effect - unknown Lymph-Vascular invasion ? not identified. Perineural invasion ? not identified Tumor deposits - not identified Lymph nodes: Number of lymph nodes examined - 39 Number of lymph nodes involved - 1 Additional pathologic findings ? largest polyp close to ileocecal valve with focal high-grade dysplasia. Two smaller polyps ? tubular adenoma Appendix ? fibrous obliteration of distal appendix and focal hyperplastic mucosal change. Ancillary studies: Microsatellite instability - Negative (no loss of mismatch protein; no microsatellite instability detected). Immunohistochemistry studies for mismatch repair proteins: MLH1 - Intact nuclear positivity, tumor cells MSH2 - Intact nuclear positivity, tumor cells MSH6 - Intact nuclear positivity, tumor cells PMS2 - Intact nuclear positivity, tumor cells PATHOLOGIC STAGE: pT3 N1a Mx Myrna notes overall he is doing quite well. Post operative pain has been well controlled. The patient denies nausea. The patient`s appetite has been good. He is currently undergoing his oral chemotherapy agents. He has had 1 episode of a reaction to his medication which has protracted his course somewhat but overall he is doing well. He notes his appetite is good and he is gaining weight. VITALS: There were no vitals taken for this visit. On examination, the abdominal skin incisions were clean, dry, and intact. The bowel sounds were normal, the abdomen was soft. Assessment IMPRESSION: Status Post laparoscopic right hemicolectomy for colon cancer. PLAN: Myrna should contact me immediately if he has any difficulties or changes in his bowel activity or abdominal complaints. Otherwise, I would like him to return for 1 year follow-up colonoscopy next summer Diagnoses: (C18.4) Malignant neoplasm of transverse colon (HCC) (primary encounter diagnosis) Return to Clinic: The patient is instructed to follow- up with me in 8 months for colonoscopy. Chris Ferreira MD CNOV Observed: 07/19/2018 Status: COMPLETED Source: [place] 8:[address] [facility] REPOSITORY Office Visit (GENSWS) MYRNA JORGENSEN ([id number]) 1950 M Date Time Provider Department 07/19/18 8:30 AM CHRIS FERREIRA During your visit today, we recorded the following information about you: Chris Ferreira MD 07/19/2018 7:09 PM Signed FOLLOW UP VISIT - POST OP COLON CANCER NAME: Myrna Jorgensen CLINIC NO.: [id number] DATE OF SERVICE: July 19, 2018 : 1950 REFERRING PHYSICIAN: Shlomo Dudley DO Myrna is a patient I am following for a mid transverse colon colon cancer. The patient is a 68 year old male with a complaint of rectal bleeding. The patient has a history of coronary artery disease. He had 2 stents placed last April. He is chronically on Plavix and aspirin. The patient presented to [facility] last week with rectal bleeding. He was admitted to the medicine service. A CT scan of the abdomen and pelvis was obtained which demonstrated no specific abnormalities in the liver. There was felt to be thickening in the mid transverse colon. My partner, Lorenza Cueva was consulted. She performed upper and lower endoscopy on March 15, 2018. Upper endoscopy demonstrated very mild antritis and benign gastric fundic polyps. Colonoscopy was performed and at the mid transverse colon a fungating mass was identified. Multiple biopsies were obtained. Luis ink was injected for identification and a clip was placed to better localize this abnormality. Postprocedure KUB was obtained which demonstrated the clip just to the right of the midline vertebral structures. Pathology returned this morning. Pathology demonstrated: MICROSCOPIC DIAGNOSIS A. Antral biopsy: Mild gastritis. B. Gastric polyp, biopsy: Fundic gland polyp. C. Transverse colon mass, biopsy: Invasive moderately differentiated adenocarcinoma. See comment. The patient was seen in the hospital by his bladder tier, Dr. Esteban Grigsby. Dr. Grigsby felt that overall, the patient was a reasonable risk for surgical intervention locally. He was comfortable holding both his aspirin and his plavix. I performed a laparoscopic extended right hemicolectomy on March 20, 2018. The patient did well and was discharged home on March 23. He did note some dizziness the day after discharge, but we held his beta mandeep and he has been doing well since. The pathology demonstrated: MICROSCOPIC DIAGNOSIS A. Right colon, hemicolectomy: Invasive adenocarcinoma. See complete cancer checklist below. B. Soft tissue of umbilical region, excision: Fragment of fibrofatty tissue with mild fibrosis consistent with hernia sac. No evidence of malignancy. AM:claudio 03/26/18 COMMENT COLON CANCER SUMMARY: Specimen ? right colon Procedure ? right hemicolectomy Tumor site ? right colon Tumor size ? 2.5 x 2 x 0.5 cm Macroscopic tumor perforation ? not identified Histologic type - adenocarcinoma Histologic grade ? low-grade (moderately differentiated) Microscopic tumor extension ? tumor invades through the muscularis propria to the subserosal adipose tissue. Tumor is located 3 cm from its closest (distal) mucosal margin of excision. Margins: Proximal margin ? uninvolved by invasive carcinoma. Distal margin - uninvolved by invasive carcinoma. Circumferential or mesenteric margin - uninvolved by invasive carcinoma. Treatment effect - unknown Lymph-Vascular invasion ? not identified. Perineural invasion ? not identified Tumor deposits - not identified Lymph nodes: Number of lymph nodes examined - 39 Number of lymph nodes involved - 1 Additional pathologic findings ? largest polyp close to ileocecal valve with focal high-grade dysplasia. Two smaller polyps ? tubular adenoma Appendix ? fibrous obliteration of distal appendix and focal hyperplastic mucosal change. Ancillary studies: Microsatellite instability - Negative (no loss of mismatch protein; no microsatellite instability detected). Immunohistochemistry studies for mismatch repair proteins: MLH1 - Intact nuclear positivity, tumor cells MSH2 - Intact nuclear positivity, tumor cells MSH6 - Intact nuclear positivity, tumor cells PMS2 - Intact nuclear positivity, tumor cells PATHOLOGIC STAGE: pT3 N1a Mx Myrna notes overall he is doing quite well. Post operative pain has been well controlled. The patient denies nausea. The patient`s appetite has been good. He is currently undergoing his oral chemotherapy agents. He has had 1 episode of a reaction to his medication which has protracted his course somewhat but overall he is doing well. He notes his appetite is good and he is gaining weight. VITALS: There were no vitals taken for this visit. On examination, the abdominal skin incisions were clean, dry, and intact. The bowel sounds were normal, the abdomen was soft. Assessment IMPRESSION: Status Post laparoscopic right hemicolectomy for colon cancer. PLAN: Myrna should contact me immediately if he has any difficulties or changes in his bowel activity or abdominal complaints. Otherwise, I would like him to return for 1 year follow-up colonoscopy next summer Diagnoses: (C18.4) Malignant neoplasm of transverse colon (HCC) (primary encounter diagnosis) Return to Clinic: The patient is instructed to follow- up with me in 8 months for colonoscopy. Chris Ferreira MD Referring Provider: SHLOMO DUDLEY [[id number]] Allergies As of Date: 07/19/2018 Noted Allergy Reaction OXALIPLATIN 06/04/2018 5 - Intolerance Comments: Difficulty swallowing PRILOSEC (OMEPRAZOLE) 09/20/2005 ZYPREXA (OLANZAPINE) 07/19/2018 14 - Other: See Comments Comments: muscle twitching Date Reviewed: 07/19/2018 Reviewed by: Chris Ferreira - Fully Assessed Reason for Visit: Established Patient [175] Cmt: 3 mo f/u colectomy Primary Visit Diagnosis:Malignant neoplasm of transverse colon (HCC) [C18.4] Prescriptions as of 07/19/2018 Sig: CAPECITABINE 500 MG TABLET Take 3 tablets by mouth twice* MULTIPLE VITAMIN ORAL Take 1 tablet by mouth once d* ONDANSETRON HCL 8 MG TABLET Take 1 tablet by mouth every * METAMUCIL ORAL Take 2 Tablespoonsful by mout* GLUCOSAMINE [id number]* Take 1 tablet by mouth once d* TRIAMCINOLONE ACETONIDE 55 MC* Use 2 Sprays in the nose once* ASPIRIN 81 MG TABLET,DELAYED * Take 81 mg by mouth once curtis* ATORVASTATIN 80 MG TABLET Take 80 mg by mouth once curtis* ISOSORBIDE MONONITRATE ER 30 * Take 30 mg by mouth once curtis* LISINOPRIL 20 MG TABLET Take 20 mg by mouth once curtis* METOPROLOL TARTRATE 25 MG TAB* Take 25 mg by mouth twice cely* MIRALAX ORAL Take 1 scoop by mouth once da* TAMSULOSIN 0.4 MG CAPSULE Take 1 capsule by mouth daily* RABEPRAZOLE 20 MG TABLET,MIA* Take 1 tablet by mouth once d* Patient taking differently: Take 20 mg by mouth twice cely* VITAMIN B12 500 MCG-FOLIC ACI* 1 capsule once daily. CYANOCOBALAMIN (VIT B-12) 500* 1 tablet once daily. VITAMIN B-6 100 MG TABLET 1 tablet once daily. OLANZAPINE 10 MG TABLET Take 1 tablet by mouth daily * Patient not taking: Reported on 06/26/2018 Problem List As Of Date 07/19/2018 Noted Resolved CALCULUS OF KIDNEY [N20.0] INVALID FOR* BENIGN HYPERTENSION [I10] INVALID FOR* HYPERLIPIDEMIA NEC/NOS [E78.5] INVALID FOR* ESOPHAGEAL REFLUX [K21.9] INVALID FOR* Vasomotor rhinitis [J30.0] INVALID FOR* BPH (benign prostatic hyperplasia) [N40.0] INVALID FOR* Cancer of cecum (HCC) [C18.0] INVALID FOR* Metastatic cancer to intra-abdominal lymph node*INVALID FOR* Iron deficiency anemia due to chronic blood los*INVALID FOR* Iron malabsorption [K90.9] INVALID FOR* Follow-up and Disposition History Recorded Letter Text Encounter Status:Closed by CHRIS FERREIRA MD on 07/19/18 PROGRESS Observed: 07/17/2018 Status: COMPLETED Source: [place] 10:[address] [facility] REPOSITORY O ID: [id number] Author: Esteban Ramos Service: (none) Author Type: Physician Type: Progress Notes Filed: 07/17/2018 11:12 AM Note Text: Diagnosis: 1) Stage IIIA colon cancer. HPI: The patient is a 68 yo male HTN and CAD (SC 2017; 2 stents RCA). Patient was on ASA and Plavix. Had episode rectal bleeding without previous bleeding. Went to ED where bleeding continued. Admitted. MICROSCOPIC DIAGNOSIS A. Right colon, hemicolectomy: Invasive adenocarcinoma. See complete cancer checklist below. B. Soft tissue of umbilical region, excision: Fragment of fibrofatty tissue with mild fibrosis consistent with hernia sac. No evidence of malignancy. COMMENT COLON CANCER SUMMARY: Specimen ? right colon Procedure ? right hemicolectomy Tumor site ? right colon Tumor size ? 2.5 x 2 x 0.5 cm Macroscopic tumor perforation ? not identified Histologic type - adenocarcinoma Histologic grade ? low-grade (moderately differentiated) Microscopic tumor extension ? tumor invades through the muscularis propria to the subserosal adipose tissue. Tumor is located 3 cm from its closest (distal) mucosal margin of excision. Margins: Proximal margin ? uninvolved by invasive carcinoma. Distal margin - uninvolved by invasive carcinoma. Circumferential or mesenteric margin - uninvolved by invasive carcinoma. Treatment effect - unknown Lymph-Vascular invasion ? not identified. Perineural invasion ? not identified Tumor deposits - not identified Lymph nodes: Number of lymph nodes examined - 39 Number of lymph nodes involved - 1 Additional pathologic findings ? largest polyp close to ileocecal valve with focal high-grade dysplasia. Two smaller polyps ? tubular adenoma Appendix ? fibrous obliteration of distal appendix and focal hyperplastic mucosal change. Ancillary studies: Microsatellite instability - Negative (no loss of mismatch protein; no microsatellite instability detected). Immunohistochemistry studies for mismatch repair proteins: MLH1 - Intact nuclear positivity, tumor cells MSH2 - Intact nuclear positivity, tumor cells MSH6 - Intact nuclear positivity, tumor cells PMS2 - Intact nuclear positivity, tumor cells PATHOLOGIC STAGE: pT3 N1a Mx Was seen by cardiology. Was told okay to stay off Plavix. Continuing ASA daily. Previous therapy: 1) CAPOX. Significant early onset of rather extreme neurologic symptoms following second dose. He required hospitalization overnight observation due to the laryngeal dysesthesia--started in feet right after infusion. Immediately went to knees when he stood up out of chair. By the time he got home (very hot that day; >85 degrees) had feeling of cutting glass from throat to stomach when tried to swallow. Had sensation of severe pain in throat. Couldn't talk. Current therapy: 1) Capecitabine. Presents for ongoing oncologic management. Interim history: Did better with 1500 mg BID dosing--less nausea, but uses Zofran prior to each dose capecitabine. Less HFS reaction, but got on the treadmill twice and exacerbated symptoms of feet. Now healing well. No mouth sores or diarrhea. Rare heartburn. All neurologic symptoms remain resolved. PMH, medications and allergies personally reviewed by me today. Any changes documented in appropriate section. ROS: Constitutional: Denies episodes of fever and night sweats. Neuro: Denies LEWIS, vertigo, dizziness and imbalance. Denies symptoms of neuropathy. HEENT: No recent change in voice, vision or hearing. Resp: Denies cough, wheeze and hemoptysis. CVS: Denies PND, orthopnea. GI: See above. : Denies dysuria or gross hematuria. No symptoms of bladder outlet obstruction. Endo: Denies hot flashes. Denies polyuria and polydipsia. Denies heat and cold intolerance. Musculoskeletal: Denies bone, joint, back and muscular pain. Derm: Denies rash. Denies jaundice and diffuse pruritis. Heme: Denies unusual bleeding and unexplained bruising. Psych: Normal mood. PHYSICAL EXAM: Vitals: There were no vitals taken for this visit. Well-appearing and in no acute distress. EYES: Sclerae are anicteric bilaterally. NECK: Supple. LYMPHATIC: There is no palpable cervical, supraclavicular adenopathy. RESPIRATORY: Inspiratory breath sounds are of normal intensity in all [place]roy. No rales, wheezes or rhonchi. Expiratory phase is normal. CARDIOVASCULAR: Rhythm is regular. Normal intensity S1/S2. There is no gallop or murmur. ABDOMEN: The abdomen is nondistended. No organomegaly. No tenderness. Extremities: No swelling or edema. SKIN: No jaundice or rash. No petechiae. NEUROLOGIC: open cut examiner II-XII are grossly intact. No focal motor weakness. MUSCULOSKELETAL: No joint swelling or tenderness. No muscle wasting. 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 -Pathologic staging previously completed in problem list. -Significant reaction to oxaliplatin. -Plan 6 months of therapy which will be 8-9 cycles of treatment. Plan: -Continue capecitabine at 1500 mg in am and keep 1500 mg pm. -Will complete 6 months of therapy. Esteban Ramos DO CNOVSP Observed: 07/17/2018 Status: COMPLETED Source: [place] 10:[address] [facility] REPOSITORY Visit (SP) Office ([place]) MYRNA JORGENSEN ([id number]) 1950 M Date Time Provider Department 07/17/18 10:50 AM ESTEBAN RAMOS During your visit today, we recorded the following information about you: Esteban Ramos DO 07/17/2018 11:12 AM Signed Diagnosis: 1) Stage IIIA colon cancer. HPI: The patient is a 68 yo male HTN and CAD (SC 2017; 2 stents RCA). Patient was on ASA and Plavix. Had episode rectal bleeding without previous bleeding. Went to ED where bleeding continued. Admitted. MICROSCOPIC DIAGNOSIS A. Right colon, hemicolectomy: Invasive adenocarcinoma. See complete cancer checklist below. B. Soft tissue of umbilical region, excision: Fragment of fibrofatty tissue with mild fibrosis consistent with hernia sac. No evidence of malignancy. COMMENT COLON CANCER SUMMARY: Specimen ? right colon Procedure ? right hemicolectomy Tumor site ? right colon Tumor size ? 2.5 x 2 x 0.5 cm Macroscopic tumor perforation ? not identified Histologic type - adenocarcinoma Histologic grade ? low-grade (moderately differentiated) Microscopic tumor extension ? tumor invades through the muscularis propria to the subserosal adipose tissue. Tumor is located 3 cm from its closest (distal) mucosal margin of excision. Margins: Proximal margin ? uninvolved by invasive carcinoma. Distal margin - uninvolved by invasive carcinoma. Circumferential or mesenteric margin - uninvolved by invasive carcinoma. Treatment effect - unknown Lymph-Vascular invasion ? not identified. Perineural invasion ? not identified Tumor deposits - not identified Lymph nodes: Number of lymph nodes examined - 39 Number of lymph nodes involved - 1 Additional pathologic findings ? largest polyp close to ileocecal valve with focal high-grade dysplasia. Two smaller polyps ? tubular adenoma Appendix ? fibrous obliteration of distal appendix and focal hyperplastic mucosal change. Ancillary studies: Microsatellite instability - Negative (no loss of mismatch protein; no microsatellite instability detected). Immunohistochemistry studies for mismatch repair proteins: MLH1 - Intact nuclear positivity, tumor cells MSH2 - Intact nuclear positivity, tumor cells MSH6 - Intact nuclear positivity, tumor cells PMS2 - Intact nuclear positivity, tumor cells PATHOLOGIC STAGE: pT3 N1a Mx Was seen by cardiology. Was told okay to stay off Plavix. Continuing ASA daily. Previous therapy: 1) CAPOX. Significant early onset of rather extreme neurologic symptoms following second dose. He required hospitalization overnight observation due to the laryngeal dysesthesia--started in feet right after infusion. Immediately went to knees when he stood up out of chair. By the time he got home (very hot that day; >85 degrees) had feeling of cutting glass from throat to stomach when tried to swallow. Had sensation of severe pain in throat. Couldn't talk. Current therapy: 1) Capecitabine. Presents for ongoing oncologic management. Interim history: Did better with 1500 mg BID dosing--less nausea, but uses Zofran prior to each dose capecitabine. Less HFS reaction, but got on the treadmill twice and exacerbated symptoms of feet. Now healing well. No mouth sores or diarrhea. Rare heartburn. All neurologic symptoms remain resolved. PMH, medications and allergies personally reviewed by me today. Any changes documented in appropriate section. ROS: Constitutional: Denies episodes of fever and night sweats. Neuro: Denies LEWIS, vertigo, dizziness and imbalance. Denies symptoms of neuropathy. HEENT: No recent change in voice, vision or hearing. Resp: Denies cough, wheeze and hemoptysis. CVS: Denies PND, orthopnea. GI: See above. : Denies dysuria or gross hematuria. No symptoms of bladder outlet obstruction. Endo: Denies hot flashes. Denies polyuria and polydipsia. Denies heat and cold intolerance. Musculoskeletal: Denies bone, joint, back and muscular pain. Derm: Denies rash. Denies jaundice and diffuse pruritis. Heme: Denies unusual bleeding and unexplained bruising. Psych: Normal mood. PHYSICAL EXAM: Vitals: There were no vitals taken for this visit. Well-appearing and in no acute distress. EYES: Sclerae are anicteric bilaterally. NECK: Supple. LYMPHATIC: There is no palpable cervical, supraclavicular adenopathy. RESPIRATORY: Inspiratory breath sounds are of normal intensity in all [place]. No rales, wheezes or rhonchi. Expiratory phase is normal. CARDIOVASCULAR: Rhythm is regular. Normal intensity S1/S2. There is no gallop or murmur. ABDOMEN: The abdomen is nondistended. No organomegaly. No tenderness. Extremities: No swelling or edema. SKIN: No jaundice or rash. No petechiae. NEUROLOGIC: open cut examiner II-XII are grossly intact. No focal motor weakness. MUSCULOSKELETAL: No joint swelling or tenderness. No muscle wasting. 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 -Pathologic staging previously completed in problem list. -Significant reaction to oxaliplatin. -Plan 6 months of therapy which will be 8-9 cycles of treatment. Plan: -Continue capecitabine at 1500 mg in am and keep 1500 mg pm. -Will complete 6 months of therapy. DO Niki Sanchez LPN, COMFORT 07/17/2018 11:05 AM Signed Est pt., discuss recent lab results Niki Rios LPN Referring Provider: CHRIS FERREIRA [[id number]] Allergies As of Date: 07/17/2018 Noted Allergy Reaction OXALIPLATIN 06/04/2018 5 - Intolerance Comments: Difficulty swallowing PRILOSEC (OMEPRAZOLE) 09/20/2005 Date Reviewed: 07/17/2018 Reviewed by: Niki Ye (Musical Performer) COMFORT Rios - Fully Assessed Reason for Visit: Established Patient [175] Primary Visit Diagnosis:Cancer of cecum (HCC) [C18.0] Other Visit Diagnosis:Metastatic cancer to intra-abdominal lymph nodes (HCC) [C77.2] Follow-up and Disposition History Recorded Prescriptions as of 07/17/2018 Sig: CAPECITABINE 500 MG TABLET Take 3 tablets by mouth twice* MULTIPLE VITAMIN ORAL Take 1 tablet by mouth once d* ONDANSETRON HCL 8 MG TABLET Take 1 tablet by mouth every * METAMUCIL ORAL Take 2 Tablespoonsful by mout* GLUCOSAMINE [id number]* Take 1 tablet by mouth once d* TRIAMCINOLONE ACETONIDE 55 MC* Use 2 Sprays in the nose once* ASPIRIN 81 MG TABLET,DELAYED * Take 81 mg by mouth once curtis* ATORVASTATIN 80 MG TABLET Take 80 mg by mouth once curtis* ISOSORBIDE MONONITRATE ER 30 * Take 30 mg by mouth once curtis* LISINOPRIL 20 MG TABLET Take 20 mg by mouth once curtis* METOPROLOL TARTRATE 25 MG TAB* Take 25 mg by mouth twice cely* MIRALAX ORAL Take 1 scoop by mouth once da* TAMSULOSIN 0.4 MG CAPSULE Take 1 capsule by mouth daily* RABEPRAZOLE 20 MG TABLET,MIA* Take 1 tablet by mouth once d* Patient taking differently: Take 20 mg by mouth twice cely* VITAMIN B12 500 MCG-FOLIC ACI* 1 capsule once daily. CYANOCOBALAMIN (VIT B-12) 500* 1 tablet once daily. VITAMIN B-6 100 MG TABLET 1 tablet once daily. OLANZAPINE 10 MG TABLET Take 1 tablet by mouth daily * Patient not taking: Reported on 06/26/2018 Problem List As Of Date 07/17/2018 Noted Resolved CALCULUS OF KIDNEY [N20.0] INVALID FOR* BENIGN HYPERTENSION [I10] INVALID FOR* HYPERLIPIDEMIA NEC/NOS [E78.5] INVALID FOR* ESOPHAGEAL REFLUX [K21.9] INVALID FOR* Vasomotor rhinitis [J30.0] INVALID FOR* BPH (benign prostatic hyperplasia) [N40.0] INVALID FOR* Cancer of cecum (HCC) [C18.0] INVALID FOR* Metastatic cancer to intra-abdominal lymph node*INVALID FOR* Iron deficiency anemia due to chronic blood los*INVALID FOR* Iron malabsorption [K90.9] INVALID FOR* Visit Notes: >> Niki Ye (Musical Performer) BlancaCOMFORT Jul 17, 2018 11:00 AM Status: Signed Est pt., discuss recent lab results Niki Ye ArashjiaCOMFORT Encounter Status:Closed by ESTEBAN RAMOS DO on 07/17/18 COMPREHENSIVE METABOLIC Collected: 07/16/2018 Status: F Source: [place] RODRIGUEZ 7:01 AM [facility] REPOSITORY TYPE CODE TESTS RESULT OUT OF RANGE REFERENCE UNITS LAB L501.0100 74-106 mg/dL Normal GLU 99 Result Comment: Please note revised GLUCOSE reference range effective 2017. LAB L501.1000 7-18 mg/dL Normal BUN 11 LAB L501.1100 0.70-1.30 mg/dL Normal CREAT,SERUM 1.12 Result Comment: The validity of the calculated GFR AND GFRAA in patients over 70 years has not been determined. Clinical correlation is essential. LAB L501.1110 >60 mL/min Normal EST GFR 69 Result Comment: Non- GFR Calc LAB L501.1115 >60 mL/min Normal EST GFR - AA 84 Result Comment: GFR Calc LAB L501.1300 10-20 RATIO Low BUN/CRE 9.8 LAB L501.1500 6.4-8.2 g/dL Normal T PROT 7.5 LAB L501.1800 3.2-5.0 g/dL Normal ALB 4.3 LAB L501.1950 2.2-4.2 g/dL Normal GLOB 3.2 LAB L501.2000 0.9-2.4 RATIO Normal A/G 1.3 LAB L501.2200 8.5-10.1 mg/dL Normal CA 8.9 LAB L501.4100 15-37 U/L Normal AST 30 LAB L501.4305 45-117 U/L Normal ALK P 78 LAB L501.4405 16-61 U/L High ALT 62 LAB L501.4600 0.20-1.00 mg/dL Normal T BILI 0.80 LAB L501.5300 136-145 mmol/L Normal NA 141 LAB L501.5600 3.5-5.1 mmol/L Normal K 3.9 LAB L501.5900 98-107 mmol/L Normal CL 106 LAB L501.6100 21.0-32.0 mmol/L Normal CO2 29.0 LAB L501.6200 5-15 Normal GAP 6 Performed By: #### L500.4050 #### [facility] [address] [place], [address] CBC W/DIFF, AUTOMATED Collected: 07/16/2018 Status: F Source: [place] 7:01 AM [facility] REPOSITORY TYPE CODE TESTS RESULT OUT OF RANGE REFERENCE UNITS LAB L100.1000 4.4-11.0 K/mm3 Low WBC 4.0 LAB L100.1200 4.6-6.2 M/mm3 Low RBC 4.47 LAB L100.1300 13.0-16.5 g/dl Normal HGB 13.8 LAB L100.1400 40-54 % Normal HCT 41.7 LAB L100.1500 80-94 fL Normal MCV 93.3 LAB L100.1600 27.0-32.0 pg Normal MCH 30.9 LAB L100.1700 32-36 g/gl Normal MCHC 33.1 LAB L100.1810 11.6-14.6 % High RDW CV 27.3 LAB L100.1820 35.1-43.9 fl High RDW SD 91.8 LAB L100.1900 150-450 K/mm3 Low PLT 135 LAB L100.2000 6.2-12.0 fl Normal MPV 8.7 LAB L100.2100 47-70 % Normal NEUT% 63.7 LAB L100.2200 19-41 % Normal LY% 21.5 LAB L100.2300 0-10 % High MONO% 12.7 LAB L100.2400 0-5 % Normal EO% 1.3 LAB L100.2500 0-1 % Normal BASO% 0.3 LAB L100.2550 0.0-0.9 % Normal IM GRAN % 0.500 Result Comment: IG% - Immature Granulocytes (promyelocytes, myelocytes and metamyelocytes) > 1% indicates that a LEFT SHIFT is Present. LAB L100.2620 2.0-7.7 X10 3/uL Normal Absolute Neut 2.5 LAB L100.2720 0.83-4.51 X10 3/ul Normal Absolute Lymph 0.85 LAB L100.4500 Normal SMEAR COMMENT COMMENT Result Comment: SLIDE SCANNED - 1+ ANISO NOTED. Performed By: #### L100.0100 #### [facility] [address], [address] PROGRESS Observed: 06/26/2018 Status: COMPLETED Source: [place] 10:[address] [facility] REPOSITORY HNO ID: [id number] Author: Niki Ye (Comfort) COMFORT Rios Service: (none) Author Type: LICENSED NURSE Type: Progress Notes Filed: 06/26/2018 12:33 PM Note Text: 68 year old male here for INACTIVATED INFLUENZA VACCINE. 2842-7665 Season Patient is identified by name and date of : Yes [] CONTRAINDICATIONS color enhanced section Age less than 6 months? No Allergy to eggs, chicken, chicken feathers, or chicken dander? No Allergy to thimerosal (a preservative) or formaldehyde, gelatin? No History of severe reaction to any vaccine component or a previous dose of influenza vaccination? No History of Guillain-Huson Syndrome within 6 weeks after a previous influenza vaccine? No Patient is not moderately or severely ill? No Current temperature greater or equal to 100.4F? No History of Bone Marrow Transplant prior 6 months or solid organ transplant in the past 3 months ? No History of fainting after a prior injection or medical procedure? No- ? If patient has fainted in the past, the CDC recommends sitting or lying down for 15 minutes after the vaccination. [] VERIFICATION color enhanced section Was the answer Yes for any of the above contraindications? No contraindications present. Acceptable to proceed with vaccine. Patient/guardian agrees the above answers are true to the best of their knowledge? Yes Flu vaccine information sheet given? Yes See immunization activity in [facility] for details of immunizations adminstered today. Patient age: [age] year old For The 7486-3943 Flu Season 6-35 months old: Fluzone 0.25 ml - IM (Preservative Free) 3 years of age: Fluzone 0.5 ml - IM (Preservative Free) 3 years and older: Fluzone 0.5 ml- IM-(with Preservatives) 65+ years old: 2-49 years old Fluzone High-Dose 0.5 ml - IM (Preservative Free) FLUMIST- intranasal REMEMBER: If patient is less than 9 years of age and this is the first vaccine of Influenza to be received in any flu season, they should receive a second dose in one months time. PROGRESS Observed: 06/26/2018 Status: COMPLETED Source: [place] 10:[address] [facility] REPOSITORY [facility] ID: [id number] Author: Esteban Ramos Service: (none) Author Type: Physician Type: Progress Notes Filed: 06/26/2018 12:33 PM Note Text: Diagnosis: 1) Stage IIIA colon cancer. HPI: The patient is a 68 yo male HTN and CAD (SC 2017; 2 stents RCA). Patient was on ASA and Plavix. Had episode rectal bleeding without previous bleeding. Went to ED where bleeding continued. Admitted. MICROSCOPIC DIAGNOSIS A. Right colon, hemicolectomy: Invasive adenocarcinoma. See complete cancer checklist below. B. Soft tissue of umbilical region, excision: Fragment of fibrofatty tissue with mild fibrosis consistent with hernia sac. No evidence of malignancy. COMMENT COLON CANCER SUMMARY: Specimen ? right colon Procedure ? right hemicolectomy Tumor site ? right colon Tumor size ? 2.5 x 2 x 0.5 cm Macroscopic tumor perforation ? not identified Histologic type - adenocarcinoma Histologic grade ? low-grade (moderately differentiated) Microscopic tumor extension ? tumor invades through the muscularis propria to the subserosal adipose tissue. Tumor is located 3 cm from its closest (distal) mucosal margin of excision. Margins: Proximal margin ? uninvolved by invasive carcinoma. Distal margin - uninvolved by invasive carcinoma. Circumferential or mesenteric margin - uninvolved by invasive carcinoma. Treatment effect - unknown Lymph-Vascular invasion ? not identified. Perineural invasion ? not identified Tumor deposits - not identified Lymph nodes: Number of lymph nodes examined - 39 Number of lymph nodes involved - 1 Additional pathologic findings ? largest polyp close to ileocecal valve with focal high-grade dysplasia. Two smaller polyps ? tubular adenoma Appendix ? fibrous obliteration of distal appendix and focal hyperplastic mucosal change. Ancillary studies: Microsatellite instability - Negative (no loss of mismatch protein; no microsatellite instability detected). Immunohistochemistry studies for mismatch repair proteins: MLH1 - Intact nuclear positivity, tumor cells MSH2 - Intact nuclear positivity, tumor cells MSH6 - Intact nuclear positivity, tumor cells PMS2 - Intact nuclear positivity, tumor cells PATHOLOGIC STAGE: pT3 N1a Mx Was seen by cardiology. Was told okay to stay off Plavix. Continuing ASA daily. Previous therapy: 1) CAPOX. Significant early onset of rather extreme neurologic symptoms following second dose. He required hospitalization overnight observation due to the laryngeal dysesthesia--started in feet right after infusion. Immediately went to knees when he stood up out of chair. By the time he got home (very hot that day; >85 degrees) had feeling of cutting glass from throat to stomach when tried to swallow. Had sensation of severe pain in throat. Couldn't talk. Current therapy: 1) Capecitabine. Presents for ongoing oncologic management. Interim history: Dose of capecitabine was increased for cycle 2. Around day 12 or 13 he started experiencing symptoms of hand-foot skin reaction. Most predominant on the feet. No cracking or blistering. However they were tender. No symptoms of stomatitis. No diarrhea. He had fatigue and still had nausea which was relieved with antiemetics. All neurologic symptoms resolved. PMH, medications and allergies personally reviewed by me today. Any changes documented in appropriate section. ROS: Constitutional: Denies episodes of fever and night sweats. Neuro: Denies LEWIS, vertigo, dizziness and imbalance. Denies symptoms of neuropathy. HEENT: No recent change in voice, vision or hearing. Resp: Denies cough, wheeze and hemoptysis. CVS: Denies PND, orthopnea. GI: See above. : Denies dysuria or gross hematuria. No symptoms of bladder outlet obstruction. Endo: Denies hot flashes. Denies polyuria and polydipsia. Denies heat and cold intolerance. Musculoskeletal: Denies bone, joint, back and muscular pain. Derm: Denies rash. Denies jaundice and diffuse pruritis. Heme: Denies unusual bleeding and unexplained bruising. Psych: Normal mood. PHYSICAL EXAM: Vitals: Blood pressure 127/75, pulse 63, temperature 37.4 ?C (99.3 ?F), temperature source Oral, weight 103.9 kg (229 lb). Well-appearing and in no acute distress. EYES: Sclerae are anicteric bilaterally. NECK: Supple. LYMPHATIC: There is no palpable cervical, supraclavicular adenopathy. RESPIRATORY: Inspiratory breath sounds are of normal intensity in all [place]. No rales, wheezes or rhonchi. Expiratory phase is normal. CARDIOVASCULAR: Rhythm is regular. Normal intensity S1/S2. There is no gallop or murmur. ABDOMEN: The abdomen is nondistended. No organomegaly. No tenderness. Extremities: No swelling or edema. SKIN: No jaundice or rash. No petechiae. NEUROLOGIC: open cut examiner II-XII are grossly intact. No focal motor weakness. MUSCULOSKELETAL: No joint swelling or tenderness. No muscle wasting. 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 -Pathologic staging previously completed in problem list. -Significant reaction to oxaliplatin. -Plan 6 months of therapy which will be 8-9 cycles of treatment. Plan: -Decrease back to 1500 mg in am and keep 1500 mg pm. -Will complete 6 months of therapy. -Flu shot today. Esteban Ramos DO CNOVSP Observed: 06/26/2018 Status: COMPLETED Source: [place] 10:[address] [facility] REPOSITORY Visit (SP) Office (HEMAWS) MYRNA JORGENSEN ([id number]) 1950 M Date Time Provider Department 06/26/18 10:10 AM ESTEBAN RAMOS During your visit today, we recorded the following information about you: Temperature Pulse Blood pressure Weight 99.3 degrees 63/minute 127/75 103.9 kg Meryl Marina MOYER 06/26/2018 10:46 AM Signed Est patient. Discuss recent labs. Meryl Marina Ramos DO 06/26/2018 12:33 PM Signed Diagnosis: 1) Stage IIIA colon cancer. HPI: The patient is a 68 yo male HTN and CAD (SC 2017; 2 stents RCA). Patient was on ASA and Plavix. Had episode rectal bleeding without previous bleeding. Went to ED where bleeding continued. Admitted. MICROSCOPIC DIAGNOSIS A. Right colon, hemicolectomy: Invasive adenocarcinoma. See complete cancer checklist below. B. Soft tissue of umbilical region, excision: Fragment of fibrofatty tissue with mild fibrosis consistent with hernia sac. No evidence of malignancy. COMMENT COLON CANCER SUMMARY: Specimen ? right colon Procedure ? right hemicolectomy Tumor site ? right colon Tumor size ? 2.5 x 2 x 0.5 cm Macroscopic tumor perforation ? not identified Histologic type - adenocarcinoma Histologic grade ? low-grade (moderately differentiated) Microscopic tumor extension ? tumor invades through the muscularis propria to the subserosal adipose tissue. Tumor is located 3 cm from its closest (distal) mucosal margin of excision. Margins: Proximal margin ? uninvolved by invasive carcinoma. Distal margin - uninvolved by invasive carcinoma. Circumferential or mesenteric margin - uninvolved by invasive carcinoma. Treatment effect - unknown Lymph-Vascular invasion ? not identified. Perineural invasion ? not identified Tumor deposits - not identified Lymph nodes: Number of lymph nodes examined - 39 Number of lymph nodes involved - 1 Additional pathologic findings ? largest polyp close to ileocecal valve with focal high-grade dysplasia. Two smaller polyps ? tubular adenoma Appendix ? fibrous obliteration of distal appendix and focal hyperplastic mucosal change. Ancillary studies: Microsatellite instability - Negative (no loss of mismatch protein; no microsatellite instability detected). Immunohistochemistry studies for mismatch repair proteins: MLH1 - Intact nuclear positivity, tumor cells MSH2 - Intact nuclear positivity, tumor cells MSH6 - Intact nuclear positivity, tumor cells PMS2 - Intact nuclear positivity, tumor cells PATHOLOGIC STAGE: pT3 N1a Mx Was seen by cardiology. Was told okay to stay off Plavix. Continuing ASA daily. Previous therapy: 1) CAPOX. Significant early onset of rather extreme neurologic symptoms following second dose. He required hospitalization overnight observation due to the laryngeal dysesthesia--started in feet right after infusion. Immediately went to knees when he stood up out of chair. By the time he got home (very hot that day; >85 degrees) had feeling of cutting glass from throat to stomach when tried to swallow. Had sensation of severe pain in throat. Couldn't talk. Current therapy: 1) Capecitabine. Presents for ongoing oncologic management. Interim history: Dose of capecitabine was increased for cycle 2. Around day 12 or 13 he started experiencing symptoms of hand-foot skin reaction. Most predominant on the feet. No cracking or blistering. However they were tender. No symptoms of stomatitis. No diarrhea. He had fatigue and still had nausea which was relieved with antiemetics. All neurologic symptoms resolved. PMH, medications and allergies personally reviewed by me today. Any changes documented in appropriate section. ROS: Constitutional: Denies episodes of fever and night sweats. Neuro: Denies LEWIS, vertigo, dizziness and imbalance. Denies symptoms of neuropathy. HEENT: No recent change in voice, vision or hearing. Resp: Denies cough, wheeze and hemoptysis. CVS: Denies PND, orthopnea. GI: See above. : Denies dysuria or gross hematuria. No symptoms of bladder outlet obstruction. Endo: Denies hot flashes. Denies polyuria and polydipsia. Denies heat and cold intolerance. Musculoskeletal: Denies bone, joint, back and muscular pain. Derm: Denies rash. Denies jaundice and diffuse pruritis. Heme: Denies unusual bleeding and unexplained bruising. Psych: Normal mood. PHYSICAL EXAM: Vitals: Blood pressure 127/75, pulse 63, temperature 37.4 ?C (99.3 ?F), temperature source Oral, weight 103.9 kg (229 lb). Well-appearing and in no acute distress. EYES: Sclerae are anicteric bilaterally. NECK: Supple. LYMPHATIC: There is no palpable cervical, supraclavicular adenopathy. RESPIRATORY: Inspiratory breath sounds are of normal intensity in all monroy. No rales, wheezes or rhonchi. Expiratory phase is normal. CARDIOVASCULAR: Rhythm is regular. Normal intensity S1/S2. There is no gallop or murmur. ABDOMEN: The abdomen is nondistended. No organomegaly. No tenderness. Extremities: No swelling or edema. SKIN: No jaundice or rash. No petechiae. NEUROLOGIC: open cut examiner II-XII are grossly intact. No focal motor weakness. MUSCULOSKELETAL: No joint swelling or tenderness. No muscle wasting. 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 -Pathologic staging previously completed in problem list. -Significant reaction to oxaliplatin. -Plan 6 months of therapy which will be 8-9 cycles of treatment. Plan: -Decrease back to 1500 mg in am and keep 1500 mg pm. -Will complete 6 months of therapy. -Flu shot today. DO Niki Sanchez, COMFORT, STOPPER GRINDER 06/26/2018 12:33 PM Signed 68 year old male here for INACTIVATED INFLUENZA VACCINE. [id number] Season Patient is identified by name and date of : Yes [] CONTRAINDICATIONS color enhanced section Age less than 6 months? No Allergy to eggs, chicken, chicken feathers, or chicken dander? No Allergy to thimerosal (a preservative) or formaldehyde, gelatin? No History of severe reaction to any vaccine component or a previous dose of influenza vaccination? No History of Guillain-Huson Syndrome within 6 weeks after a previous influenza vaccine? No Patient is not moderately or severely ill? No Current temperature greater or equal to 100.4F? No History of Bone Marrow Transplant prior 6 months or solid organ transplant in the past 3 months ? No History of fainting after a prior injection or medical procedure? No- ? If patient has fainted in the past, the CDC recommends sitting or lying down for 15 minutes after the vaccination. [] VERIFICATION color enhanced section Was the answer Yes for any of the above contraindications? No contraindications present. Acceptable to proceed with vaccine. Patient/guardian agrees the above answers are true to the best of their knowledge? Yes Flu vaccine information sheet given? Yes See immunization activity in [facility] for details of immunizations adminstered today. Patient age: [age] year old For The [id number] Flu Season 6-35 months old: Fluzone 0.25 ml - IM (Preservative Free) 3 years of age: Fluzone 0.5 ml - IM (Preservative Free) 3 years and older: Fluzone 0.5 ml- IM-(with Preservatives) 65+ years old: 2-49 years old Fluzone High-Dose 0.5 ml - IM (Preservative Free) FLUMIST- intranasal REMEMBER: If patient is less than 9 years of age and this is the first vaccine of Influenza to be received in any flu season, they should receive a second dose in one months time. Niki Rios LPN, COMFORT 06/26/2018 11:07 AM Signed Flu vaccine administered, tolerated well, no immediate adverse reactions noted. Niki Rios LPN Referring Provider: CHRIS FERREIRA [[id number]] Allergies As of Date: 06/26/2018 Noted Allergy Reaction OXALIPLATIN 06/04/2018 5 - Intolerance Comments: Difficulty swallowing PRILOSEC (OMEPRAZOLE) 09/20/2005 Date Reviewed: 06/26/2018 Reviewed by: Meryl Amaral LPN - Fully Assessed Reason for Visit: Established Patient [175] Imm/Inj [58] Cmt: Flu Vaccine Reason For Visit History Recorded Primary Visit Diagnosis:Cancer of cecum (HCC) [C18.0] Other Visit Diagnoses:Metastatic cancer to intra-abdominal lymph nodes (HCC) [C77.2] Need for vaccination [Z23] Order(s):capecitabine (XELODA) 500 mg tabletTake 3 tablets by mouth twice daily. for 14 days. Then off 1 week.Disp: 112 tabletRfl: 5 [] influenza vaccine 180 mcg (Patients 65 years and older) (PF) (FLUZONE HIGH DOSE )Disp: Rfl: Follow-up and Disposition History Recorded Prescriptions as of 06/26/2018 Sig: CAPECITABINE 500 MG TABLET Take 3 tablets by mouth twice* MULTIPLE VITAMIN ORAL Take 1 tablet by mouth once d* ONDANSETRON HCL 8 MG TABLET Take 1 tablet by mouth every * METAMUCIL ORAL Take 2 Tablespoonsful by mout* GLUCOSAMINE [id number]* Take 1 tablet by mouth once d* TRIAMCINOLONE ACETONIDE 55 MC* Use 2 Sprays in the nose once* ASPIRIN 81 MG TABLET,DELAYED * Take 81 mg by mouth once curtis* ATORVASTATIN 80 MG TABLET Take 80 mg by mouth once curtis* ISOSORBIDE MONONITRATE ER 30 * Take 30 mg by mouth once curtis* LISINOPRIL 20 MG TABLET Take 20 mg by mouth once curtis* METOPROLOL TARTRATE 25 MG TAB* Take 25 mg by mouth twice cely* MIRALAX ORAL Take 1 scoop by mouth once da* TAMSULOSIN 0.4 MG CAPSULE Take 1 capsule by mouth daily* RABEPRAZOLE 20 MG TABLET,MIA* Take 1 tablet by mouth once d* Patient taking differently: Take 20 mg by mouth twice cely* VITAMIN B12 500 MCG-FOLIC ACI* 1 capsule once daily. CYANOCOBALAMIN (VIT B-12) 500* 1 tablet once daily. VITAMIN B-6 100 MG TABLET 1 tablet once daily. OLANZAPINE 10 MG TABLET Take 1 tablet by mouth daily * Patient not taking: Reported on 06/26/2018 Medication notes this encounter VITAMIN B12 500 MCG-FOLIC ACID 400 MCG TABLET >> Meryl Amaral LPN 06/26/2018 10:11 AM >> MERYL AMARAL LPN Jun 26, 2018 10:11 AM discontinued CYANOCOBALAMIN (VIT B-12) 500 MCG TABLET >> Meryl Amaral LPN 06/26/2018 10:11 AM >> MERYL AMARAL LPN Jun 26, 2018 10:11 AM discontinued VITAMIN B-6 100 MG TABLET >> Meryl Amaral LPN 06/26/2018 10:13 AM >> MERYL AMARAL LPN Jun 26, 2018 10:13 AM discontinued Problem List As Of Date 06/26/2018 Noted Resolved CALCULUS OF KIDNEY [N20.0] INVALID FOR* BENIGN HYPERTENSION [I10] INVALID FOR* HYPERLIPIDEMIA NEC/NOS [E78.5] INVALID FOR* ESOPHAGEAL REFLUX [K21.9] INVALID FOR* Vasomotor rhinitis [J30.0] INVALID FOR* BPH (benign prostatic hyperplasia) [N40.0] INVALID FOR* Cancer of cecum (HCC) [C18.0] INVALID FOR* Metastatic cancer to intra-abdominal lymph node*INVALID FOR* Iron deficiency anemia due to chronic blood los*INVALID FOR* Iron malabsorption [K90.9] INVALID FOR* Visit Notes: >> Meryl Marina MOYER MonJun 26, 2018 10:14 AM Status: Signed Est patient. Discuss recent labs. Meryl Amaral LPN >> Niki Ye (Musical Performer) COMFORT Rios MonJun 26, 2018 11:06 AM Status: Signed Flu vaccine administered, tolerated well, no immediate adverse reactions noted. Niki Rios LPN Encounter Status:Closed by NIKI RIOS on 06/26/18 CBC W/DIFF, AUTOMATED Collected: 06/25/2018 Status: F Source: [place] 7:01 AM [facility] REPOSITORY TYPE CODE TESTS RESULT OUT OF RANGE REFERENCE UNITS LAB L100.1000 4.4-11.0 K/mm3 Low WBC 3.7 LAB L100.1200 4.6-6.2 M/mm3 Low RBC 4.44 LAB L100.1300 13.0-16.5 g/dl Normal HGB 13.4 LAB L100.1400 40-54 % Low HCT 39.8 LAB L100.1500 80-94 fL Normal MCV 89.6 LAB L100.1600 27.0-32.0 pg Normal MCH 30.2 LAB L100.1700 32-36 g/gl Normal MCHC 33.7 LAB L100.1810 11.6-14.6 % High RDW CV 26.2 LAB L100.1820 35.1-43.9 fl High RDW SD 81.9 LAB L100.1900 150-450 K/mm3 Normal PLT 153 LAB L100.2000 6.2-12.0 fl Normal MPV 8.6 LAB L100.2100 47-70 % Normal NEUT% 62.2 LAB L100.2200 19-41 % Normal LY% 21.7 LAB L100.2300 0-10 % High MONO% 13.3 LAB L100.2400 0-5 % Normal EO% 1.4 LAB L100.2500 0-1 % Normal BASO% 0.3 LAB L100.2550 0.0-0.9 % High IM GRAN % 1.100 Result Comment: IG% - Immature Granulocytes (promyelocytes, myelocytes and metamyelocytes) > 1% indicates that a LEFT SHIFT is Present. LAB L100.2620 2.0-7.7 X10 3/uL Normal Absolute Neut 2.3 LAB L100.2720 0.83-4.51 X10 3/ul Low Absolute Lymph 0.80 LAB L100.7300 ANISO Normal 1+ LAB L100.7800 Normal MACROCYTE RARE Performed By: #### L100.0100 #### [facility] [address] [place], [address] COMPREHENSIVE METABOLIC Collected: 06/25/2018 Status: F Source: [facility] 7:01 AM [facility] REPOSITORY TYPE CODE TESTS RESULT OUT OF RANGE REFERENCE UNITS LAB L501.0100 74-106 mg/dL Normal GLU 100 Result Comment: Fasting Glucose result from 100 to 125 mg/dL suggests IMPAIRED HOMEOSTASIS per A.D.A. criteria. Please note revised GLUCOSE reference range effective 2017. LAB L501.1000 7-18 mg/dL Normal BUN 10 LAB L501.1100 0.70-1.30 mg/dL Normal CREAT,SERUM 1.10 Result Comment: The validity of the calculated GFR AND GFRAA in patients over 70 years has not been determined. Clinical correlation is essential. LAB L501.1110 >60 mL/min Normal EST GFR 71 Result Comment: Non- GFR Calc LAB L501.1115 >60 mL/min Normal EST GFR - AA 86 Result Comment: GFR Calc LAB L501.1300 10-20 RATIO Low BUN/CRE 9.1 LAB L501.1500 6.4-8.2 g/dL Normal T PROT 7.6 LAB L501.1800 3.2-5.0 g/dL Normal ALB 4.2 LAB L501.1950 2.2-4.2 g/dL Normal GLOB 3.4 LAB L501.2000 0.9-2.4 RATIO Normal A/G 1.2 LAB L501.2200 8.5-10.1 mg/dL Normal CA 9.2 LAB L501.4100 15-37 U/L Normal AST 35 LAB L501.4305 45-117 U/L Normal ALK P 85 LAB L501.4405 16-61 U/L High ALT 64 LAB L501.4600 0.20-1.00 mg/dL Normal T BILI 0.70 LAB L501.5300 136-145 mmol/L Normal NA 143 LAB L501.5600 3.5-5.1 mmol/L Normal K 4.0 LAB L501.5900 98-107 mmol/L Normal CL 107 LAB L501.6100 21.0-32.0 mmol/L Normal CO2 28.0 LAB L501.6200 5-15 Normal GAP 8 Performed By: #### L500.4050 #### [facility] [address], [address] PROGRESS Observed: 06/07/2018 Status: COMPLETED Source: [place] 2:[address] [facility] REPOSITORY HNO ID: [id number] Author: Sabina Saravia (Sw) Service: (none) Author Type: Director Dental Services Type: Progress Notes Filed: 06/07/2018 2:17 PM Note Text: SOCIAL WORK FOLLOW UP NOTE: [facility] Date of service: June 07, 2018 Myrna Hudson Jorgensen is being seen for a follow up social work visit. Today's visit includes: spouse TOPICS ADDRESSED: Finances; SINCERE spoke with patient's spouse regarding need for Xeloda assistance once current jessica is . Patient's spouse reports she did not receive previous message from SINCERE earlier this month. Currently funding is not available for patient's disease through [employer], [employer] or [employer]. Patient's spouse reports they cannot afford the co-pay amount if we were to go through Rx Outreach. SINCERE referred this to Financial Navigator to see if other resources are available. PLAN: Communicate pertinent medical/psychosocial information to Cancer Center team and Continue follow up as needed F/U APPOINTMENT: WAQAS Leroy Observed: 06/07/2018 Status: COMPLETED Source: [place] 12:[address] [facility] REPOSITORY Social Work (NIMA) JEFRYMYRNA Hudson ([id number]) 1950 M Date Time Provider Department 06/07/18 SABINA SARAVIA (SW) During your visit today, we recorded the following information about you: WAQAS Fuchs 06/07/2018 2:17 PM Signed SOCIAL WORK FOLLOW UP NOTE: [facility]CER CENTER Date of service: June 07, 2018 Myrna Jorgensen is being seen for a follow up social work visit. Today's visit includes: spouse TOPICS ADDRESSED: Finances; SINCERE spoke with patient's spouse regarding need for Xeloda assistance once current jessica is . Patient's spouse reports she did not receive previous message from SINCERE earlier this month. Currently funding is not available for patient's disease through [employer] or [employer]. Patient's spouse reports they cannot afford the co-pay amount if we were to go through Rx Outreach. SINCERE referred this to Financial Navigator to see if other resources are available. PLAN: Communicate pertinent medical/psychosocial information to Cancer Center team and Continue follow up as needed F/U APPOINTMENT: PRN WAQAS Fuchs Allergies As of Date: 06/07/2018 Noted Allergy Reaction OXALIPLATIN 06/04/2018 5 - Intolerance Comments: Difficulty swallowing PRILOSEC (OMEPRAZOLE) 09/20/2005 Date Reviewed: 06/04/2018 Reviewed by: Niki Ye (Musical Performer) COMFORT Rios - Fully Assessed Reason for Visit: Social Work Services [507] Prescriptions as of 06/07/2018 Sig: VITAMIN B12 500 MCG-FOLIC ACI* 1 capsule once daily. CYANOCOBALAMIN (VIT B-12) 500* 1 tablet once daily. VITAMIN B-6 100 MG TABLET 1 tablet once daily. MULTIPLE VITAMIN ORAL Take 1 tablet by mouth once d* ONDANSETRON HCL 8 MG TABLET Take 1 tablet by mouth every * METAMUCIL ORAL Take 2 Tablespoonsful by mout* OLANZAPINE 10 MG TABLET Take 1 tablet by mouth daily * GLUCOSAMINE [id number]* Take 1 tablet by mouth once d* CAPECITABINE 500 MG TABLET Take 4 tablets by mouth twice* TRIAMCINOLONE ACETONIDE 55 MC* Use 2 Sprays in the nose once* ASPIRIN 81 MG TABLET,DELAYED * Take 81 mg by mouth once curtis* ATORVASTATIN 80 MG TABLET Take 80 mg by mouth once curtis* ISOSORBIDE MONONITRATE ER 30 * Take 30 mg by mouth once curtis* LISINOPRIL 20 MG TABLET Take 20 mg by mouth once curtis* METOPROLOL TARTRATE 25 MG TAB* Take 25 mg by mouth twice cely* MIRALAX ORAL Take 1 scoop by mouth once da* TAMSULOSIN 0.4 MG CAPSULE Take 1 capsule by mouth daily* RABEPRAZOLE 20 MG TABLET,MIA* Take 1 tablet by mouth once d* Patient taking differently: Take 20 mg by mouth twice cely* Problem List As Of Date 06/07/2018 Noted Resolved CALCULUS OF KIDNEY [N20.0] INVALID FOR* BENIGN HYPERTENSION [I10] INVALID FOR* HYPERLIPIDEMIA NEC/NOS [E78.5] INVALID FOR* ESOPHAGEAL REFLUX [K21.9] INVALID FOR* Vasomotor rhinitis [J30.0] INVALID FOR* BPH (benign prostatic hyperplasia) [N40.0] INVALID FOR* Cancer of cecum (HCC) [C18.0] INVALID FOR* Metastatic cancer to intra-abdominal lymph node*INVALID FOR* Iron deficiency anemia due to chronic blood los*INVALID FOR* Iron malabsorption [K90.9] INVALID FOR* Encounter Status:Closed by SABINA SARAVIA on 06/07/18 PROGRESS Observed: 06/04/2018 Status: COMPLETED Source: [place] 4:[address] [facility] REPOSITORY [facility] ID: [id number] Author: Esteban Ramos Service: (none) Author Type: Physician Type: Progress Notes Filed: 06/04/2018 4:39 PM Note Text: Diagnosis: 1) Stage IIIA colon cancer. HPI: The patient is a 68 yo male HTN and CAD (SC 2017; 2 stents RCA). Patient was on ASA and Plavix. Had episode rectal bleeding without previous bleeding. Went to ED where bleeding continued. Admitted. MICROSCOPIC DIAGNOSIS A. Right colon, hemicolectomy: Invasive adenocarcinoma. See complete cancer checklist below. B. Soft tissue of umbilical region, excision: Fragment of fibrofatty tissue with mild fibrosis consistent with hernia sac. No evidence of malignancy. COMMENT COLON CANCER SUMMARY: Specimen ? right colon Procedure ? right hemicolectomy Tumor site ? right colon Tumor size ? 2.5 x 2 x 0.5 cm Macroscopic tumor perforation ? not identified Histologic type - adenocarcinoma Histologic grade ? low-grade (moderately differentiated) Microscopic tumor extension ? tumor invades through the muscularis propria to the subserosal adipose tissue. Tumor is located 3 cm from its closest (distal) mucosal margin of excision. Margins: Proximal margin ? uninvolved by invasive carcinoma. Distal margin - uninvolved by invasive carcinoma. Circumferential or mesenteric margin - uninvolved by invasive carcinoma. Treatment effect - unknown Lymph-Vascular invasion ? not identified. Perineural invasion ? not identified Tumor deposits - not identified Lymph nodes: Number of lymph nodes examined - 39 Number of lymph nodes involved - 1 Additional pathologic findings ? largest polyp close to ileocecal valve with focal high-grade dysplasia. Two smaller polyps ? tubular adenoma Appendix ? fibrous obliteration of distal appendix and focal hyperplastic mucosal change. Ancillary studies: Microsatellite instability - Negative (no loss of mismatch protein; no microsatellite instability detected). Immunohistochemistry studies for mismatch repair proteins: MLH1 - Intact nuclear positivity, tumor cells MSH2 - Intact nuclear positivity, tumor cells MSH6 - Intact nuclear positivity, tumor cells PMS2 - Intact nuclear positivity, tumor cells PATHOLOGIC STAGE: pT3 N1a Mx Was seen by cardiology. Was told okay to stay off Plavix. Continuing ASA daily. Current therapy: 1) CAPOX Presents for ongoing oncologic management. Interim history: He had a very marked and severe onset of neuropathy following the most recent dose of oxaliplatin--started in feet right after infusion. Immediately went to knees when he stood up out of chair. By the time he got home (very hot that day; >85 degrees) had feeling of cutting glass from throat to stomach when tried to swallow. Had sensation of severe pain in throat. Couldn't talk. Went to ED. Had a lot of tremors/fasciliculations the next day. All neurologic symptoms resolved. PMH, medications and allergies personally reviewed by me today. Any changes documented in appropriate section. ROS: Constitutional: Denies episodes of fever and night sweats. Neuro: Denies LEWIS, vertigo, dizziness and imbalance. Denies symptoms of neuropathy. HEENT: No recent change in voice, vision or hearing. Resp: Denies cough, wheeze and hemoptysis. CVS: Denies PND, orthopnea. GI: See above. : Denies dysuria or gross hematuria. No symptoms of bladder outlet obstruction. Endo: Denies hot flashes. Denies polyuria and polydipsia. Denies heat and cold intolerance. Musculoskeletal: See above. Derm: Denies rash. Denies jaundice and diffuse pruritis. Heme: Denies unusual bleeding and unexplained bruising. Psych: Normal mood. PHYSICAL EXAM: Vitals: Blood pressure 124/82, pulse 66, temperature 37 ?C (98.6 ?F), weight 102.1 kg (225 lb). Well-appearing and in no acute distress. EYES: Sclerae are anicteric bilaterally. NECK: Supple. No enlargement of thyroid. LYMPHATIC: There is no palpable cervical, supraclavicular, axillary or inguinal adenopathy. RESPIRATORY: Inspiratory breath sounds are of normal intensity in all [place]roy. No rales, wheezes or rhonchi. Expiratory phase is normal. CARDIOVASCULAR: Rhythm is regular. Normal intensity S1/S2. There is no gallop or murmur. ABDOMEN: The abdomen is nondistended. No organomegaly. No tenderness. Extremities: No swelling or edema. SKIN: No jaundice or rash. No petechiae. NEUROLOGIC: open cut examiner II-XII are grossly intact. No focal motor weakness. DTRs are symmetric and normal. MUSCULOSKELETAL: No joint swelling or tenderness. No muscle wasting. 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 -Pathologic staging previously completed in problem list. -Significant reaction to oxaliplatin. -Plan 6 months of therapy which will be 8-9 cycles of treatment. Plan: -Increase to 2000 mg in am and keep 1500 mg pm. If does well then increase to 2000 mg BID for next cycle. -Will complete 6 months of therapy. RETA -continue iron carboxymaltose Esteban Ramos DO CNOVSP Observed: 06/04/2018 Status: COMPLETED Source: [place] 4:[address] [facility] REPOSITORY Visit (SP) Office (HEMAWS) MYRNA JORGENSEN ([id number]) 1950 M Date Time Provider Department 06/04/18 4:10 PM ESTEBAN RAMOS During your visit today, we recorded the following information about you: Temperature Pulse Blood pressure Weight 98.6 degrees 66/minute 124/82 102.1 kg Niki Cassi Rios LPN, COMFORT 06/04/2018 4:26 PM Signed Est pt, discuss recent lab results Nikigeorges Ye COMFORT Rios, 06/04/2018 4:39 PM Signed Diagnosis: 1) Stage IIIA colon cancer. HPI: The patient is a 68 yo male HTN and CAD (SC 2017; 2 stents RCA). Patient was on ASA and Plavix. Had episode rectal bleeding without previous bleeding. Went to ED where bleeding continued. Admitted. MICROSCOPIC DIAGNOSIS A. Right colon, hemicolectomy: Invasive adenocarcinoma. See complete cancer checklist below. B. Soft tissue of umbilical region, excision: Fragment of fibrofatty tissue with mild fibrosis consistent with hernia sac. No evidence of malignancy. COMMENT COLON CANCER SUMMARY: Specimen ? right colon Procedure ? right hemicolectomy Tumor site ? right colon Tumor size ? 2.5 x 2 x 0.5 cm Macroscopic tumor perforation ? not identified Histologic type - adenocarcinoma Histologic grade ? low-grade (moderately differentiated) Microscopic tumor extension ? tumor invades through the muscularis propria to the subserosal adipose tissue. Tumor is located 3 cm from its closest (distal) mucosal margin of excision. Margins: Proximal margin ? uninvolved by invasive carcinoma. Distal margin - uninvolved by invasive carcinoma. Circumferential or mesenteric margin - uninvolved by invasive carcinoma. Treatment effect - unknown Lymph-Vascular invasion ? not identified. Perineural invasion ? not identified Tumor deposits - not identified Lymph nodes: Number of lymph nodes examined - 39 Number of lymph nodes involved - 1 Additional pathologic findings ? largest polyp close to ileocecal valve with focal high-grade dysplasia. Two smaller polyps ? tubular adenoma Appendix ? fibrous obliteration of distal appendix and focal hyperplastic mucosal change. Ancillary studies: Microsatellite instability - Negative (no loss of mismatch protein; no microsatellite instability detected). Immunohistochemistry studies for mismatch repair proteins: MLH1 - Intact nuclear positivity, tumor cells MSH2 - Intact nuclear positivity, tumor cells MSH6 - Intact nuclear positivity, tumor cells PMS2 - Intact nuclear positivity, tumor cells PATHOLOGIC STAGE: pT3 N1a Mx Was seen by cardiology. Was told okay to stay off Plavix. Continuing ASA daily. Current therapy: 1) KAREN Presents for ongoing oncologic management. Interim history: He had a very marked and severe onset of neuropathy following the most recent dose of oxaliplatin--started in feet right after infusion. Immediately went to knees when he stood up out of chair. By the time he got home (very hot that day; >85 degrees) had feeling of cutting glass from throat to stomach when tried to swallow. Had sensation of severe pain in throat. Couldn't talk. Went to ED. Had a lot of tremors/fasciliculations the next day. All neurologic symptoms resolved. PMH, medications and allergies personally reviewed by me today. Any changes documented in appropriate section. ROS: Constitutional: Denies episodes of fever and night sweats. Neuro: Denies LEWIS, vertigo, dizziness and imbalance. Denies symptoms of neuropathy. HEENT: No recent change in voice, vision or hearing. Resp: Denies cough, wheeze and hemoptysis. CVS: Denies PND, orthopnea. GI: See above. : Denies dysuria or gross hematuria. No symptoms of bladder outlet obstruction. Endo: Denies hot flashes. Denies polyuria and polydipsia. Denies heat and cold intolerance. Musculoskeletal: See above. Derm: Denies rash. Denies jaundice and diffuse pruritis. Heme: Denies unusual bleeding and unexplained bruising. Psych: Normal mood. PHYSICAL EXAM: Vitals: Blood pressure 124/82, pulse 66, temperature 37 ?C (98.6 ?F), weight 102.1 kg (225 lb). Well-appearing and in no acute distress. EYES: Sclerae are anicteric bilaterally. NECK: Supple. No enlargement of thyroid. LYMPHATIC: There is no palpable cervical, supraclavicular, axillary or inguinal adenopathy. RESPIRATORY: Inspiratory breath sounds are of normal intensity in all monroy. No rales, wheezes or rhonchi. Expiratory phase is normal. CARDIOVASCULAR: Rhythm is regular. Normal intensity S1/S2. There is no gallop or murmur. ABDOMEN: The abdomen is nondistended. No organomegaly. No tenderness. Extremities: No swelling or edema. SKIN: No jaundice or rash. No petechiae. NEUROLOGIC: open cut examiner II-XII are grossly intact. No focal motor weakness. DTRs are symmetric and normal. MUSCULOSKELETAL: No joint swelling or tenderness. No muscle wasting. 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 -Pathologic staging previously completed in problem list. -Significant reaction to oxaliplatin. -Plan 6 months of therapy which will be 8-9 cycles of treatment. Plan: -Increase to 2000 mg in am and keep 1500 mg pm. If does well then increase to 2000 mg BID for next cycle. -Will complete 6 months of therapy. 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 FOR NAUSEADisp: 30 tabletRfl: 2 Follow-up and Disposition History Recorded Prescriptions as of 06/04/2018 Sig: VITAMIN B12 500 MCG-FOLIC ACI* 1 capsule once daily. CYANOCOBALAMIN (VIT B-12) 500* 1 tablet once daily. VITAMIN B-6 100 MG TABLET 1 tablet once daily. MULTIPLE VITAMIN ORAL Take 1 tablet by mouth once d* ONDANSETRON HCL 8 MG TABLET Take 1 tablet by mouth every * METAMUCIL ORAL Take 2 Tablespoonsful by mout* GLUCOSAMINE [id number]* Take 1 tablet by mouth once d* CAPECITABINE 500 MG TABLET Take 4 tablets by mouth twice* TRIAMCINOLONE ACETONIDE 55 MC* Use 2 Sprays in the nose once* ASPIRIN 81 MG TABLET,DELAYED * Take 81 mg by mouth once curtis* ATORVASTATIN 80 MG TABLET Take 80 mg by mouth once curtis* ISOSORBIDE MONONITRATE ER 30 * Take 30 mg by mouth once curtis* LISINOPRIL 20 MG TABLET Take 20 mg by mouth once curtis* METOPROLOL TARTRATE 25 MG TAB* Take 25 mg by mouth twice cely* MIRALAX ORAL Take 1 scoop by mouth once da* TAMSULOSIN 0.4 MG CAPSULE Take 1 capsule by mouth daily* RABEPRAZOLE 20 MG TABLET,MIA* Take 1 tablet by mouth once d* Patient taking differently: Take 20 mg by mouth twice cely* OLANZAPINE 10 MG TABLET Take 1 tablet by mouth daily * Medication notes this encounter OLANZAPINE 10 MG TABLET >> Niki Rios LPN, LPN 06/04/2018 4:13 PM >> NIKI RIOS MonJun 04, 2018 4:13 PM discontinued Problem List As Of Date 06/04/2018 Noted Resolved CALCULUS OF KIDNEY [N20.0] INVALID FOR* BENIGN HYPERTENSION [I10] INVALID FOR* HYPERLIPIDEMIA NEC/NOS [E78.5] INVALID FOR* ESOPHAGEAL REFLUX [K21.9] INVALID FOR* Vasomotor rhinitis [J30.0] INVALID FOR* BPH (benign prostatic hyperplasia) [N40.0] INVALID FOR* Cancer of cecum (HCC) [C18.0] INVALID FOR* Metastatic cancer to intra-abdominal lymph node*INVALID FOR* Iron deficiency anemia due to chronic blood los*INVALID FOR* Iron malabsorption [K90.9] INVALID FOR* Visit Notes: >> Niki Rios LPN MonJun 04, 2018 4:18 PM Status: Signed Est pt, discuss recent lab results Niki Rios LPN Encounter Status:Closed by ESTEBAN RAMOS DO on 06/04/18 CBC W/DIFF, AUTOMATED Collected: 06/02/2018 Status: F Source: [place] 7:17 AM [facility] REPOSITORY TYPE CODE TESTS RESULT OUT OF RANGE REFERENCE UNITS LAB L100.1000 4.4-11.0 K/mm3 Low WBC 4.3 LAB L100.1200 4.6-6.2 M/mm3 Low RBC 4.07 LAB L100.1300 13.0-16.5 g/dl Low HGB 11.7 LAB L100.1400 40-54 % Low HCT 36.0 LAB L100.1500 80-94 fL Normal MCV 88.5 LAB L100.1600 27.0-32.0 pg Normal MCH 28.7 LAB L100.1700 32-36 g/gl Normal MCHC 32.5 LAB L100.1810 11.6-14.6 % High RDW CV 22.4 LAB L100.1820 35.1-43.9 fl High RDW SD 59.5 LAB L100.1900 150-450 K/mm3 Normal PLT 180 LAB L100.2000 6.2-12.0 fl Normal MPV 9.1 LAB L100.2100 47-70 % Normal NEUT% 59.4 LAB L100.2200 19-41 % Normal LY% 21.2 LAB L100.2300 0-10 % High MONO% 15.7 LAB L100.2400 0-5 % Normal EO% 2.3 LAB L100.2500 0-1 % Normal BASO% 0.5 LAB L100.2550 0.0-0.9 % Normal IM GRAN % 0.900 Result Comment: IG% - Immature Granulocytes (promyelocytes, myelocytes and metamyelocytes) > 1% indicates that a LEFT SHIFT is Present. LAB L100.2620 2.0-7.7 X10 3/uL Absolute Normal Neut 2.6 LAB L100.2720 0.83-4.51 X10 3/ul Absolute Normal Lymph 0.92 LAB L100.4500 SMEAR Normal COMMENT SCANNED LAB L100.7300 ANISO Normal 2+ LAB L100.7700 Normal MICROCYTES 1+ LAB L100.7800 Normal MACROCYTE 1+ Performed By: #### L100.0100 #### [facility] [place], [address] COMPREHENSIVE METABOLIC Collected: 06/02/2018 Status: F Source: [facility] 7:17 AM [facility] REPOSITORY TYPE CODE TESTS RESULT OUT OF RANGE REFERENCE UNITS LAB L501.0100 74-106 mg/dL Normal GLU 96 Result Comment: Please note revised GLUCOSE reference range effective 2017. LAB L501.1000 7-18 mg/dL Normal BUN 11 LAB L501.1100 0.70-1.30 mg/dL Normal CREAT,SERUM 1.08 Result Comment: The validity of the calculated GFR AND GFRAA in patients over 70 years has not been determined. Clinical correlation is essential. LAB L501.1110 >60 mL/min Normal EST GFR 72 Result Comment: Non- GFR Calc LAB L501.1115 >60 mL/min Normal EST GFR - AA 88 Result Comment: GFR Calc LAB L501.1300 10-20 RATIO Normal BUN/CRE 10.2 LAB L501.1500 6.4-8.2 g/dL T Normal PROT 7.6 LAB L501.1800 3.2-5.0 g/dL Normal ALB 4.1 LAB L501.1950 2.2-4.2 g/dL Normal GLOB 3.5 LAB L501.2000 0.9-2.4 RATIO Normal A/G 1.2 LAB L501.2200 8.5-10.1 mg/dL CA Normal 8.6 LAB L501.4100 15-37 U/L Normal AST 26 LAB L501.4305 45-117 U/L Normal ALK P 90 LAB L501.4405 16-61 U/L Normal ALT 49 LAB L501.4600 0.20-1.00 mg/dL T Normal BILI 0.50 LAB L501.5300 136-145 mmol/L NA Normal 142 LAB L501.5600 3.5-5.1 mmol/L K Normal 4.0 LAB L501.5900 98-107 mmol/L CL Normal 106 LAB L501.6100 21.0-32.0 mmol/L Normal CO2 28.0 LAB L501.6200 5-15 Normal GAP 8 Performed By: #### L500.4050 #### [facility] [address] [place] [address]. [place], [place], [id number] PROGRESS Observed: 05/23/2018 Status: COMPLETED Source: [place] 4:36 PM [facility] REPOSITORY HNO ID: [id number] Author: Sabina Saravia (Sw) Service: (none) Author Type: Director Dental Services Type: Progress Notes Filed: 05/23/2018 4:37 PM Note Text: SOCIAL WORK FOLLOW UP NOTE: [facility] Date of service: May 23, 2018 Myrna Jorgensen is being seen for a follow up social work visit. Today's visit includes: spouse and [employer] representative TOPICS ADDRESSED: Finances; SINCERE called patient's spouse to discuss upcoming usage of current jessica for Xeloda through [employer]. There is open funding through [employer], but we cannot apply until current funding is used up. PLAN: Continue follow up as needed F/U APPOINTMENT: WAQAS Leroy CNSW Observed: 05/23/2018 Status: COMPLETED Source: [place] 12:[address] [facility] REPOSITORY Social Work (HEMAWS) MYRNA JORGENSEN ([id number]) 1950 M Date Time Provider Department 05/23/18 SABINA SARAVIA (SINCERE) NIMA During your visit today, we recorded the following information about you: WAQAS Fuchs 05/23/2018 4:37 PM Signed SOCIAL WORK FOLLOW UP NOTE: CANCER CENTER Date of service: May 23, 2018 Myrna Jorgensen is being seen for a follow up social work visit. Today's visit includes: spouse and [employer] representative TOPICS ADDRESSED: Finances; SINCERE called patient's spouse to discuss upcoming usage of current jessica for Xeloda through [employer]. There is open funding through [employer], but we cannot apply until current funding is used up. PLAN: Continue follow up as needed F/U APPOINTMENT: WAQAS Leroy Allergies As of Date: 05/23/2018 Noted Allergy Reaction PRILOSEC (OMEPRAZOLE) 09/20/2005 Date Reviewed: 05/16/2018 Reviewed by: Caty Morales - Fully Assessed Reason for Visit: Social Work Services [507] Prescriptions as of 05/23/2018 Sig: METAMUCIL ORAL Take 2 Tablespoonsful by mout* OLANZAPINE 10 MG TABLET Take 1 tablet by mouth daily * ONDANSETRON HCL 8 MG TABLET Take 1 tablet by mouth every * GLUCOSAMINE [id number]* Take 1 tablet by mouth once d* CAPECITABINE 500 MG TABLET Take 4 tablets by mouth twice* TRIAMCINOLONE ACETONIDE 55 MC* Use 2 Sprays in the nose once* ASPIRIN 81 MG TABLET,DELAYED * Take 81 mg by mouth once curtis* ATORVASTATIN 80 MG TABLET Take 80 mg by mouth once curtis* ISOSORBIDE MONONITRATE ER 30 * Take 30 mg by mouth once curtis* LISINOPRIL 20 MG TABLET Take 20 mg by mouth once curtis* METOPROLOL TARTRATE 25 MG TAB* Take 25 mg by mouth twice cely* MIRALAX ORAL Take 1 scoop by mouth once da* TAMSULOSIN 0.4 MG CAPSULE Take 1 capsule by mouth daily* RABEPRAZOLE 20 MG TABLET,MIA* Take 1 tablet by mouth once d* Patient taking differently: Take 20 mg by mouth twice cely* Problem List As Of Date 05/23/2018 Noted Resolved CALCULUS OF KIDNEY [N20.0] INVALID FOR* BENIGN HYPERTENSION [I10] INVALID FOR* HYPERLIPIDEMIA NEC/NOS [E78.5] INVALID FOR* ESOPHAGEAL REFLUX [K21.9] INVALID FOR* Vasomotor rhinitis [J30.0] INVALID FOR* BPH (benign prostatic hyperplasia) [N40.0] INVALID FOR* Cancer of cecum (HCC) [C18.0] INVALID FOR* Metastatic cancer to intra-abdominal lymph node*INVALID FOR* Iron deficiency anemia due to chronic blood los*INVALID FOR* Iron malabsorption [K90.9] INVALID FOR* Encounter Status:Closed by SABINA SARAVIA on 05/23/18 12 LEAD ELECTROCARDIOGRAM Observed: 05/18/2018 Status: F Source: [place] 1:30 PM [facility] REPOSITORY [facility] Cardiovascular Services [address] [place] [address] 12 Lead EKG 05/16/18 1705 MR#: [id number] Acct: [id number] Name: MYRNA JORGENSEN Jr. Rep #: [id number] : 1950 68 From: Esteban Grigsby MD Attending Dr: Jyotsna Bal M.D. Status: DIS ROMEO Ordering Dr: Aimee Babin MD Date: 05/16/18 Location: [facility] Sex: M C Admitted: 05/16/18 Test Reason : CHEST OTHER Blood Pressure : / mmHG Vent. Rate : 054 BPM Atrial Rate : 054 BPM P-R Int : 190 ms QRS Dur : 104 ms QT Int : 426 ms P-R-T Axes : 072 049 021 degrees QTc Int : 403 ms Sinus bradycardia with sinus arrhythmia Otherwise normal ECG Confirmed by KIRSTIN LUKE, ESTBEAN ([id number]), state editor ALMA DELIA MORA ([id number]) on 05/18/2018 1:29:40 PM Referred By: Radha Rivera Confirmed By:ESTEBAN GRIGSBY MD 05/18/18 1329 Date Esteban Grigsby MD CC: Aimee Babin MD; Radha Rivera; Jyotsna Bal M.D.; Shlomo Dudley DO Signed DISCHARGE SUMMARY Observed: 05/17/2018 Status: F Source: [place] 2:09 PM [facility] REPOSITORY [facility] Medical Records Department [address] [place] [address] Discharge Summary 05/17/18 1359 MR#: [id number] Acct: [id number] Name: MYRNA JORGENSEN Jr. Rep #: [id number] : 1950 68 From: Jyotsna Bal MD PCP: Shlomo Dudley DO Status: ADM IN Location: [place] [address] Discharge Date and Diagnosis - Problem List Patient Problems: Active and Suspected Problems (Last Reviewed 04/18/18 @ 11:03 by Ramya Fatima) Cold induced neuropathy (Acute) Date of Admission: 05/16/18 Date of Discharge: 05/17/18 - Primary Discharge Diagnosis Active and Suspected Problems (Last Reviewed 04/18/18 @ 11:03 by Ramya Fatima) Cold induced neuropathy (Acute) - Secondary Discharge Diagnosis Chronic Problems (Last Reviewed 04/18/18 @ 11:03 by Ramya Fatima) Pancytopenia (Chronic) Adenocarcinoma of cecum (Chronic) Presence of stent in coronary artery (Chronic 05/15/17) PTCA/JAYLIN of Prox RCA 05/15/17 GI bleed (Chronic) Anemia (Chronic) Chemotherapy Hyperlipemia, mixed (Chronic) 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 Following chemotherapy infusion developed severe painful paresthesias and dysesthesias in the legs, arm, chest and throat and presented to the ED. Was admitted and treated with steroids and antihistamines and fluids and started on b complex vitamins. Today symptoms have improved, patient was seen by oncology and is doing much better and ok for discharge.] Discharge Activity: Return to Normal Activity Home Medications: Medications to take at Discharge Psyllium [Metamucil] 1 packet PO DAILY 05/13/17 Rabeprazole Sodium [Aciphex] 20 mg PO BID 05/13/17 Tamsulosin HCl [Flomax] 0.4 mg PO QHS 05/13/17 atorvastatin 80 mg tablet 80 mg PO QHS 08/24/17 Glucosamine/MSM/Chondroitin A [Glucosamine Chondroit MSM Tab] 1 ea PO DAILY 03/14/18 Aspirin E.C. [Ecotrin] 81 mg PO DAILY@0800 03/19/18 Isosorbide Mononitrate [Imdur] 30 mg PO DAILY 03/19/18 Lisinopril [Zestril] 20 mg PO DAILY 03/19/18 Metoprolol Tartrate [Lopressor (beta mandeep)] 25 mg PO BID 03/19/18 Ibuprofen [Motrin] 400 mg PO Q4H PRN PRN tab 03/23/18 triamcinolone acetonide 55 mcg nasal spray aerosol 2 spray INTRANASAL QHS 04/18/18 Cyanocobalamin [Vitamin B12] 500 mcg PO DAILY@0800 #30 tab 05/17/18 Pyridoxine HCl [Vitamin B-6] 100 mg PO DAILY@0800 #30 tab 05/17/18 Thiamine Hydrochloride [Vitamin B1] 100 mg PO DAILYCM #30 tab 05/17/18 Following Prescrptions Were Given to Patient: Cyanocobalamin [Vitamin B12] 500 mcg PO DAILY@0800 #30 tab Pyridoxine HCl [Vitamin B-6] 100 mg PO DAILY@0800 #30 tab Thiamine Hydrochloride [Vitamin B1] 100 mg PO DAILYCM #30 tab Primary Care Physician: Shlomo Dudley DO [Primary Care Provider] - Please follow up with your Primary Care Physician in: 1-2 weeks Medical Necessity - Tobacco Use Smoking Status: Never smoker Meaningful Use Info Meaningful Use Diagnoses (Choose all that apply): None applicable Code Visit OBSV E AND M: 99251 Observation care discharge 05/17/18 1409 <Electronically signed by Jyotsna Bal MD> Date Jyotsna Bal MD Cosigner Signature (if applicable): Date CC: Jyotsna Bal M.D.; Shlomo Dudley DO Signed DISCHARGE INSTRUCTION Observed: 05/17/2018 Status: F Source: [place] 1:59 PM [facility] REPOSITORY [facility] Medical Records Department [address] [place] [address] Instructions for Home/Discharge Instructions 05/17/18 1357 MR#: [id number] Acct: [id number] Name: MYRNA JORGENSEN Jr. Rep #: [id number] : 1950 68 From: Jyotsna Bal MD PCP: Shlomo Dudley DO Status: ADM IN - Discharge Diagnoses Current Active Problems: Current Active and Chronic Problems (Last Reviewed 04/18/18 @ 11:03 by Ramya Fatima) Pancytopenia (Chronic) Adenocarcinoma of cecum (Chronic) Cold induced neuropathy (Acute) You will use the following diet at home:: No restrictions, Regular Discharge Activity: Return to Normal Activity Allergies/Adverse Reactions: Allergies omeprazole [From Prilosec] Adverse Reaction (Verified 04/18/18 10:59) lowers WBCs Medications to take at Discharge Psyllium [Metamucil] 1 packet PO DAILY 05/13/17 Rabeprazole Sodium [Aciphex] 20 mg PO BID 05/13/17 Tamsulosin HCl [Flomax] 0.4 mg PO QHS 05/13/17 atorvastatin 80 mg tablet 80 mg PO QHS 08/24/17 Glucosamine/MSM/Chondroitin A [Glucosamine Chondroit MSM Tab] 1 ea PO DAILY 03/14/18 Aspirin E.C. [Ecotrin] 81 mg PO DAILY@0800 03/19/18 Isosorbide Mononitrate [Imdur] 30 mg PO DAILY 03/19/18 Lisinopril [Zestril] 20 mg PO DAILY 03/19/18 Metoprolol Tartrate [Lopressor (beta mandeep)] 25 mg PO BID 03/19/18 Ibuprofen [Motrin] 400 mg PO Q4H PRN PRN tab 03/23/18 triamcinolone acetonide 55 mcg nasal spray aerosol 2 spray INTRANASAL QHS 04/18/18 Cyanocobalamin [Vitamin B12] 500 mcg PO DAILY@0800 #30 tab 05/17/18 Pyridoxine HCl [Vitamin B-6] 100 mg PO DAILY@0800 #30 tab 05/17/18 Thiamine Hydrochloride [Vitamin B1] 100 mg PO DAILYCM #30 tab 05/17/18 The following prescriptions were given: Cyanocobalamin [Vitamin B12] 500 mcg PO DAILY@0800 #30 tab Pyridoxine HCl [Vitamin B-6] 100 mg PO DAILY@0800 #30 tab Thiamine Hydrochloride [Vitamin B1] 100 mg PO DAILYCM #30 tab Please follow up with your Primary Care Physician in: 1-2 weeks Test Results: Test results from this visit will be discussed in further detail at your follow-up appointment, if applicable. Proposed Discharge Date: 05/17/18 05/17/18 1359 <Electronically signed by Jyotsna Bal MD> Date Jyotsna Bal MD CC: Esteban Ramos DO; Shlomo Dudley DO CONSULTATION Observed: 05/17/2018 Status: F Source: [place] 8:22 AM [facility] REPOSITORY [facility] Medical Records Department [address] [place] [address] Consultation 05/17/18 08 MR#: [id number] Acct: [id number] Name: MYRNA JORGENSEN Jr. Rep #: [id number] : 1950 68 From: Dioni Hawkins MD PCP: Shlomo Dudley DO Status: ADM IN Y Location: [place] [address] Problem List (1) Anemia Status: Chronic Qualifiers: Anemia type: unspecified type Qualified Code(s): D64.9 - Anemia, unspecified Comment: Chemotherapy (2) Cold induced neuropathy Status: Acute (3) Adenocarcinoma of cecum Status: Chronic - Consult Date of Consult: 05/17/18 Consultation was requested by Dr. 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 My final recommendation will be communicated to the nursing staff, patient and also by electronic medical records. - Reason for Consult istory of Present Illness Date of Admission: 05/16/18 Chief Complaint: Neuropathy worsening after chemotherapy. 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 Ferreira who presents to the [facility] ED on 05/16/18. During his first cycle of chemotherapy (Oxaliplatin / Xeloda), patient did experience cold induced neuropathy for several days after his chemotherapy treatment. During his 2nd round oxaliplatin,he had acute onset severe BL LE and UE as well as upper chest and throat sharp pins and needles neuropathic pain. He notes the first time he only had minimal pain in his hands and feet but this quickly subsided. He had severe pain upon standing with discomfort in both lower and upper extremities feet up toward his knees and as well as hands up to his elbows and did not improve upon return to his home. At home, he attempted to eat and had intake of suspected colder fluids with onset following severe discomfort in his throat with similar sensation of pins and needles. Has no difficulty breathing or any mucosal swelling. Dr. Ramos was notified and recommended that patient presented to the emergency room for allergic reaction versus cold induced neuropathy secondary to Oxaliplatin. Workup in the ED included T 98, heart rate 70, BP 169/85, respiratory rate 16, 97% on room air, CBC with WBC 3.7, hemoglobin 11.1, platelet 147, ANC 3.2, BMP with glucose 176, calcium 8.5, magnesium 2.3, troponin less than 0.015, chest x-ray unremarkable, EKG no acute evidence of ischemia. In the ED patient administered Benadryl and Solu-Medrol. Warm IV fluid was given peripherally. He was admitted and observe overnight for any reaction. This morning his pain had subsided, he still experienced some numbness in his feet, hand and throat. He denies any sharp neuropathic pain, cough, chest pain or shortness of breath. He denies hoarseness or difficulty swallowing. No fever, nausea, vomiting or diarrhea. 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) PTCA/JAYLIN of Prox RCA 05/15/17 NSTEMI (non-ST elevated myocardial infarction) (Chronic) HTN (hypertension) (Chronic) HLD (hyperlipidemia) (Chronic) Peptic ulcer disease (Chronic) Medical History: Medical History (Last Reviewed 04/18/18 @ 11:03 by Ramya Fatima) Presence of stent in coronary artery (Chronic) Onset Date: 05/15/17 Z95.5 PTCA/JAYLIN of Prox RCA 05/15/17 Hyperlipemia, mixed (Chronic) E78.2 Atherosclerotic heart disease of [place] coronary artery without angina pectoris (Chronic) I25.10 PTCA/JAYLIN of Prox RCA 05/15/17 Chest pain (Acute) R07.9 NSTEMI (non-ST elevated myocardial infarction) (Acute) I21.4 HTN (hypertension) (Chronic) I10 Peptic ulcer disease (Chronic) K27.9 BPH (benign prostatic hyperplasia) N40.0 Cancer of transverse colon C18.4 GERD (gastroesophageal reflux disease) K21.9 Hyperglycemia R73.9 Allergies omeprazole [From Prilosec] Adverse Reaction (Verified 04/18/18 10:59) lowers WBCs Home Medications: Ambulatory Orders Medication Instructions Recorded Psyllium [Metamucil] 1 packet PO DAILY 05/13/17 Rabeprazole Sodium [Aciphex] 20 mg PO BID 05/13/17 Tamsulosin HCl [Flomax] 0.4 mg PO QHS 05/13/17 Surgical History: Surgical History (Last Reviewed 04/18/18 @ 11:03 by Ramya Fatima) H/O removal of cyst Z98.890 History of left heart catheterization Z98.890 PTCA/JAYLIN of proximal RCA 05/15/17 History of rectal surgery Z98.890 Kidney stone removal Postsurgical percutaneous transluminal coronary angioplasty (PTCA) status Onset Date: 05/15/17 Z98.61 PTCA/JAYLIN of Prox RCA 05/15/17 Right eye surgery S/P right hemicolectomy Z90.49 History of percutaneous coronary intervention Z98.890 PTCA/JAYLIN of proximal RCA 05/15/17 Surgical History: - - kidney stone removal w/ stent, rectal surgery, laser eye surgery, right wrist cyst removed, right hemicolectomy, PCI x 1. Psychiatric History: No pertinent psych hx Lives: Spouse/ Significant Other Smoking Status: Never smoker Alcohol: None Drugs: None - *Family History Paternal Family History: Family History (Last Reviewed 04/18/18 @ 11:03 by Ramya Fatima) Father CAD (coronary artery disease) Mother CAD (coronary artery disease) History Items: Heart Disease Maternal Family History: Family History (Last Reviewed 04/18/18 @ 11:03 by Ramya Fatima) Father CAD (coronary artery disease) Mother CAD (coronary artery disease) History Items: Heart Disease Review of Systems Constitutional: Reports: Malaise, Weakness, Fatigue. Denies: Chills, Fever, Weight Change HEENT: Reports: Sore Throat. Denies: Head Aches, Sinus Congestion, Sinus Drainage Cardiovascular: Reports: Chest Pain. Denies: Palpitations Respiratory: Denies: Cough, Shortness of breath at rest, Sputum production Gastrointestinal: Denies: Abdominal Pain, Nausea, Vomiting Genitourinary: Denies: Dysuria Musculoskeletal: Reports: Hand Pain, Leg Pain. Denies: Joint Pain, Joint Tenderness Skin: Denies: Rash, Wounds Neurological: Reports: Numbness, Tingling. Denies: Focal weakness Psychiatric: Denies: Anxiety, Depression, Homicidal Ideations, Suicidal Ideations Hematologic/ Lymphatic: Reports: Anemia. Denies: Easy Bruising, Easy Bleeding Active and Suspected Problems (Last Reviewed 04/18/18 @ 11:03 by Ramya Fatima) Cold induced neuropathy (Acute) Objective: Physical Examination: General: awake, alert, oriented x 3 and cooperative, seated upright in the ED bed in no apparent distress, fatigued appearance. Skin: mildly pale color, turgor, no icterus, cyanosis. HEENT: AT/NC, EOMI, PERRLA, dry MM, no carotid bruits or JVD noted, airway patent, no obstruction or edema noted, breathing well. Lungs: CTA bilaterally, moderate effort, mild decrease BL bases, no rales, ronchi or wheezing. Heart: Regular rate and rhythm; no gallop, rub audible. Abdomen: soft, obese, healed incisions s/p R hemicolectomy, NTTP, ND, normal BS, no HSM. Extremities: no cyanosis, clubbing, or edema. Neurological: patient awake, alert, oriented x 3; cognitive function intact; pupils equally reactive to light and accomodation; cranial nerves II-XII grossly normal, moving all 4 extremities, no focal deficits, strength moderately globally decreased, improved/lessened paresthesias to BL UE and LE. Psychiatric: affect appears normal, no acute evidence of depressive or anxiety feelings. 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 Anemia secondary to chemotherapy (Acute/chronic) -asymptomatic Stage III colon cancer, pT3, pN1a (low risk)-status post right hemicolectomy. HUMBERTO on adjuvant chemotherapy. Plan: -Discharge home this morning. No need for Benadryl or prednisone after discharge. -Avoid drinking cold fluid, touching cold objects or walking on cold floor. -Continue Xeloda x 2 weeks at home. -Start Zantac daily and continue Zofran as needed for nausea with chemotherapy. -Follow up with Dr. Ramos in 3 weeks. We will likely omit oxaliplatin AND proceed with 6 months of Xeloda -adjuvant chemotherapy instead for his colon cancer. cc: Dr. Esteban Ramos, Dr. Radha Rivera, Dr. Chris Ferreira 05/17/18 0822 <Electronically signed by Dioni Hawkins MD> Date Dioni Hawkins MD Cosigner Signature (if applicable): Date CC: Radha Rivera; Esteban Ramos DO; Shlomo Dudley DO Signed CBC W/DIFF, AUTOMATED Collected: 05/17/2018 Status: F Source: [place] 6:20 AM [facility] REPOSITORY TYPE CODE TESTS RESULT OUT OF RANGE REFERENCE UNITS LAB L100.1000 4.4-11.0 K/mm3 Normal WBC 6.9 LAB L100.1200 4.6-6.2 M/mm3 Low RBC 4.04 LAB L100.1300 13.0-16.5 g/dl Low HGB 11.3 LAB L100.1400 40-54 % Low HCT 34.7 LAB L100.1500 80-94 fL Normal MCV 85.9 LAB L100.1600 27.0-32.0 pg Normal MCH 28.0 LAB L100.1700 32-36 g/gl Normal MCHC 32.6 LAB L100.1810 11.6-14.6 % High RDW CV 19.4 LAB L100.1820 35.1-43.9 fl High RDW SD 47.6 LAB L100.1900 150-450 K/mm3 Normal PLT 169 LAB L100.2000 6.2-12.0 fl Normal MPV 8.6 LAB L100.2100 47-70 % High NEUT% 91.1 LAB L100.2200 19-41 % Low LY% 7.1 LAB L100.2300 0-10 % Normal MONO% 1.7 LAB L100.2400 0-5 % Normal EO% 0.0 LAB L100.2500 0-1 % Normal BASO% 0.0 LAB L100.2550 0.0-0.9 % Normal IM GRAN % 0.100 Result Comment: IG% - Immature Granulocytes (promyelocytes, myelocytes and metamyelocytes) > 1% indicates that a LEFT SHIFT is Present. LAB L100.2620 2.0-7.7 X10 3/uL Normal Absolute Neut 6.3 LAB L100.2720 0.83-4.51 X10 3/ul Low Absolute Lymph 0.49 Performed By: #### L100.0100 #### [facility] [address] [place], [place], [address] COMPREHENSIVE METABOLIC Collected: 05/17/2018 Status: F Source: [facility] 6:20 AM [facility] REPOSITORY TYPE CODE TESTS RESULT OUT OF RANGE REFERENCE UNITS LAB L501.0100 74-106 mg/dL High GLU 128 Result Comment: Fasting Glucose result greater than or equal to 126 mg/dL suggests DIABETES MELLITUS per A.D.A. criteria. Please note revised GLUCOSE reference range effective 2017. LAB L501.1000 7-18 mg/dL Normal BUN 11 LAB L501.1100 0.70-1.30 mg/dL Normal CREAT,SERUM 1.08 Result Comment: The validity of the calculated GFR AND GFRAA in patients over 70 years has not been determined. Clinical correlation is essential. LAB L501.1110 >60 mL/min Normal EST GFR 72 Result Comment: Non- GFR Calc LAB L501.1115 >60 mL/min Normal EST GFR - AA 88 Result Comment: GFR Calc LAB L501.1255 ml/min Normal Estimated CRCL 68.53 LAB L501.1300 10-20 RATIO Normal BUN/CRE 10.2 LAB L501.1500 6.4-8. g/dL Normal 2 T PROT 7.0 LAB L501.1800 3.2-5. g/dL Normal 0 ALB 3.6 LAB L501.1950 2.2-4. g/dL Normal 2 GLOB 3.4 LAB L501.2000 0.9-2. RATIO Normal 4 A/G 1.1 LAB L501.2200 8.5-10 mg/dL Normal .1 CA 8.5 LAB L501.4100 15-37 U/L Normal AST 24 LAB L501.4305 45-117 U/L Normal ALK P 83 LAB L501.4405 16-61 U/L Normal ALT 40 LAB L501.4600 0.20-1 mg/dL Normal .00 T BILI 0.80 LAB L501.5300 136-14 mmol/L Normal 5 NA 143 LAB L501.5600 3.5-5. mmol/L Normal 1 K 4.0 LAB L501.5900 98-107 mmol/L High CL 108 LAB L501.6100 21.0-3 mmol/L Normal 2.0 CO2 23.0 LAB L501.6200 5-15 Normal GAP 12 Performed By: #### L500.4050 #### [facility] [address] [facility] [place], [address] EMERGENCY DEPARTMENT Observed: 05/16/2018 Status: F Source: [place] 9:42 PM [facility] REPOSITORY [facility] Medical Records Department [address] [place] [address] Emergency Department Summary 05/16/18 1829 MR#: [id number] Acct: [id number] Name: MYRNA JORGENSEN Jr. Rep #: [id number] : 1950 68 From: Aimee Babin MD PCP: Shlomo Dudley DO Status: ADM IN - ER Visit Summary Date of Service: 05/16/18 Chief Complaint: Reaction to chemotherapy History of Present Illness: The patient is a 68 M presenting with bilateral hand and feet paresthesias. This started just after his second round of chemotherapy today. He has a history of colon cancer which has been resected and is receiving adjunctive chemotherapy. His oncologist is Dr. Ramos. He states initially he had paresthesias in his hands and feet and this then traveled to his chest and throat. Dr. Ramos was concerned about cold-induced neuropathy from the chemotherapy versus allergic reaction. He denies difficulty breathing. Complains of generalized weakness and dizziness. Physical Examination: Vitals are stable. Patient is afebrile. Alert no acute distress. HEENT exam is unremarkable. No tongue swelling or pharyngeal edema Neck is supple. Lungs are clear and equal bilaterally. Heart is regular rate and rhythm. Abdomen is soft nontender nondistended. Extremities are unremarkable. Skin is warm and dry. No rash No focal neurologic deficit. Remainder of exam is unremarkable. Emergency Department Course and Treatment: EKG is sinus bradycardia rate of 54. Patient was given Solu-Medrol and Benadryl IV. CBC shows white count 3.7, hemoglobin 11.1, platelets 147. Chemistries unremarkable other than glucose 176. Troponin is negative. Chest x-ray shows no acute process. Discussed with Dr. Hawkins who recommends checking a magnesium level as well as observation. Discussed with the hospitalist for observation Disposition: Observation Impression: Cold induced neuropathy, history of colon cancer This note was generated with Driverdo dictation software. It may contain incorrect words, spelling, and punctuation that were not noted in review of the chart prior to signing ED Disposition - Plan for ED Patient: Disposition: [facility] Chief Complaint: Allergic Reaction What to do if you have Problems For any increased pain, shortness of breath, bleeding, nausea or vomiting, chest pain, or any unexpected problems, contact your Primary Care Provider. Call [facility] ([phone]) or report to the closest Emergency Room. Call 911 if necessary. 05/16/182141 <Electronically signed by Aimee Babin MD> Date Aimee Babin MD Cosigner Signature (If Indicated): Date CC: Shlomo Dudley DO HISTORY AND PHYSICAL Observed: 05/16/2018 Status: F Source: [place]AM 8:24 PM [facility] REPOSITORY [facility] Medical Records Department [address] [place] [address] History and Physical 05/16/181940 MR#: [id number] Acct: [id number] Name: MYRNA JORGENSEN Jr. Rep #: [id number] : 1950 68 From: Radha Rivera PCP: Shlomo Dudley DO Status: ADM IN Y Location: [place] [address]-1 Problem List (1) Cold induced neuropathy Status: Acute (2) Pancytopenia Status: Chronic (3) Adenocarcinoma of cecum Status: Chronic (4) GI bleed Status: Chronic Qualifiers: GI bleed type/associated pathology: unspecified gastrointestinal hemorrhage type Qualified Code(s): K92.2 - Gastrointestinal hemorrhage, unspecified (5) Atherosclerotic heart disease of saxman coronary artery without angina pectoris Status: Chronic Qualifiers: [place] vs. transplanted heart: saxman heart Qualified Code(s): I25.10 - Atherosclerotic heart disease of saxman coronary artery without angina pectoris; I25.10 - Atherosclerotic heart disease of saxman coronary artery without angina pectoris; I25.10 - Atherosclerotic heart disease of saxman coronary artery without angina pectoris Comment: PTCA/JAYLIN of Prox RCA 05/15/17 (6) NSTEMI (non-ST elevated myocardial infarction) Status: Chronic (7) HTN (hypertension) Status: Chronic Qualifiers: Hypertension type: essential hypertension Qualified Code(s): I10 - Essential (primary) hypertension (8) HLD (hyperlipidemia) Status: Chronic Qualifiers: Hyperlipidemia type: pure hypercholesterolemia Qualified Code(s): E78.00 - Pure hypercholesterolemia, unspecified; E78.0 - Pure hypercholesterolemia (9) Peptic ulcer disease Status: Chronic History of Present Illness Date of Admission: 05/16/18 Chief Complaint: Neuropathy worsening after chemotherapy round The patient is a 68 y/o M w/ PMHx: CAD s/p NSTEMI, PCI RCA 04/2017, HTN, HLD, BPH, Hx Hyperglycemia w/ 03/15/18 5.9% HgbA1c, PUD/GERD, Chronic constipation, 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 Ramos, s/p 03/[address] Ferreira who presents to the [facility] ED on 05/16/[address] Ramos recommendation as patient had 2nd round oxaliplatin and following onset severe BL LE and UE as well as upper chest and throat sharp pins and needles neuropathic pain. He notes the first time he only had minimal pain in his hands and feet but this quickly subsided however today following his treatments upon standing he had severe discomfort in both lower and upper extremities feet up toward his knees and as well as hands up to his elbows and did not improve upon return to his home. At home he attempted to eat and had intake of suspected colder fluids with onset following severe discomfort in his throat with similar sensation of pins and needles and pain. Dr. 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 Workup in the ED included T 98, heart rate 70, BP 169/85, respiratory rate 16, 97% on room air, CBC with WBC 3.7, hemoglobin 11.1, platelet 147, ANC 3.2, BMP with glucose 176, calcium 8.5, magnesium 2.3, troponin less than 0.015, chest x-ray unremarkable, EKG no acute evidence of ischemia. In the ED patient administered Benadryl and Solu-Medrol. 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) PTCA/JAYLIN of Prox RCA 05/15/17 NSTEMI (non-ST elevated myocardial infarction) (Chronic) HTN (hypertension) (Chronic) HLD (hyperlipidemia) (Chronic) Peptic ulcer disease (Chronic) Medical History: Medical History (Last Reviewed 04/18/18 @ 11:03 by Ramya Fatima) Presence of stent in coronary artery (Chronic) Onset Date: 05/15/17 Z95.5 PTCA/JAYLIN of Prox RCA 05/15/17 Hyperlipemia, mixed (Chronic) E78.2 Atherosclerotic heart disease of saxman coronary artery without angina pectoris (Chronic) I25.10 PTCA/JAYLIN of Prox RCA 05/15/17 Chest pain (Acute) R07.9 NSTEMI (non-ST elevated myocardial infarction) (Acute) I21.4 HTN (hypertension) (Chronic) I10 Peptic ulcer disease (Chronic) K27.9 BPH (benign prostatic hyperplasia) N40.0 Cancer of transverse colon C18.4 GERD (gastroesophageal reflux disease) K21.9 Hyperglycemia R73.9 Allergies omeprazole [From Prilosec] Adverse Reaction (Verified 04/18/18 10:59) lowers WBCs Home Medications: Ambulatory Orders Medication Instructions Recorded Psyllium [Metamucil] 1 packet PO DAILY 05/13/17 Rabeprazole Sodium [Aciphex] 20 mg PO BID 05/13/17 Tamsulosin HCl [Flomax] 0.4 mg PO QHS 05/13/17 Surgical History: Surgical History (Last Reviewed 04/18/18 @ 11:03 by Ramya Fatima) H/O removal of cyst Z98.890 History of left heart catheterization Z98.890 PTCA/JAYLIN of proximal RCA 05/15/17 History of rectal surgery Z98.890 Kidney stone removal Postsurgical percutaneous transluminal coronary angioplasty (PTCA) status Onset Date: 05/15/17 Z98.61 PTCA/JAYLIN of Prox RCA 05/15/17 Right eye surgery S/P right hemicolectomy Z90.49 History of percutaneous coronary intervention Z98.890 PTCA/JAYLIN of proximal RCA 05/15/17 Surgical History: - - kidney stone removal w/ stent, rectal surgery, laser eye surgery, right wrist cyst removed, right hemicolectomy, PCI x 1. Psychiatric History: No pertinent psych hx Lives: Spouse/ Significant Other Smoking Status: Never smoker Alcohol: None Drugs: None - *Family History Paternal Family History: Family History (Last Reviewed 04/18/18 @ 11:03 by Ramya Fatima) Father CAD (coronary artery disease) Mother CAD (coronary artery disease) History Items: Heart Disease Maternal Family History: Family History (Last Reviewed 04/18/18 @ 11:03 by Ramya Fatima) Father CAD (coronary artery disease) Mother CAD (coronary artery disease) History Items: Heart Disease Review of Systems Constitutional: Reports: Malaise, Weakness, Fatigue. Denies: Chills, Fever, Weight Change HEENT: Reports: Sore Throat. Denies: Head Aches, Sinus Congestion, Sinus Drainage Cardiovascular: Reports: Chest Pain. Denies: Palpitations Respiratory: Denies: Cough, Shortness of breath at rest, Sputum production Gastrointestinal: Denies: Abdominal Pain, Nausea, Vomiting Genitourinary: Denies: Dysuria Musculoskeletal: Reports: Hand Pain, Leg Pain. Denies: Joint Pain, Joint Tenderness Skin: Denies: Rash, Wounds Neurological: Reports: Numbness, Tingling. Denies: Focal weakness Psychiatric: Denies: Anxiety, Depression, Homicidal Ideations, Suicidal Ideations Hematologic/ Lymphatic: Reports: Anemia. Denies: Easy Bruising, Easy Bleeding VTE Information - Inpt Only VTE Present on Admission: No VTE Mechan Device Prophylaxis: SCD's VTE Pharm Prophylaxis ordered?: Yes Patient Problems: Active and Suspected Problems (Last Reviewed 04/18/18 @ 11:03 by Ramya Fatima) Cold induced neuropathy (Acute) Subjective: Seated upright in the ED bed, fatigued appearance, notes BL LE and UE paresthesias/neuropathy improved, still some sensation in his throat. Objective: Physical Examination: General: awake, alert, oriented x 3 and cooperative, seated upright in the ED bed in no apparent distress, fatigued appearance. Skin: mildly pale color, turgor, no icterus, cyanosis. HEENT: AT/NC, EOMI, PERRLA, dry MM, no carotid bruits or JVD noted, airway patent, no obstruction or edema noted, breathing well. Lungs: CTA bilaterally, moderate effort, mild decrease BL bases, no rales, ronchi or wheezing. Heart: Regular rate and rhythm; no gallop, rub audible. Abdomen: soft, obese, healed incisions s/p R hemicolectomy, NTTP, ND, normal BS, no HSM. Extremities: no cyanosis, clubbing, or edema. Neurological: patient awake, alert, oriented x 3; cognitive function intact; pupils equally reactive to light and accomodation; cranial nerves II-XII grossly normal, moving all 4 extremities, no focal deficits, strength moderately globally decreased, improved/lessened paresthesias to BL UE and LE. Psychiatric: affect appears normal, no acute evidence of depressive or anxiety feelings. - Physical Exam Vital Signs Temp Pulse Resp BP Pulse Ox 98 F 70 16 169/85 H 97 05/16/18 16:57 05/16/18 16:57 05/16/18 16:57 05/16/18 16:57 05/16/18 16:57 Oxygen Delivery Method Room Air Weight: 220 lb Body Mass Index (BMI) 31.1 Laboratory Tests Past 24 Hrs WBC 3.7 L Assessment/Plan All Active Problems (Last Reviewed 04/18/18 @ 11:03 by Ramya Fatima) Cold induced neuropathy (Acute) Anemia (Acute) Colonic mass (Acute) Preop cardiovascular exam (Acute) Chest pain (Acute) The patient is a 68 y/o M w/ PMHx: CAD s/p NSTEMI, PCI RCA 04/2017, HTN, HLD, BPH, Hx Hyperglycemia w/ 03/15/18 5.9% HgbA1c, PUD/GERD, Chronic constipation, Recent Dx adenocarcinoma of the cecum following w/ Dr. Ramos, s/p 03/[address] Ferreira who presents to the [facility] ED on 05/16/[address] Ramos recommendation as patient had 2nd round oxaliplatin and following onset severe BL LE and UE as well as upper chest and throat sharp pins and needles neuropathic pain. (1) Allergic Reaction, Cold Induced Neuropathy: Secondary to oxaliplatin, 2nd round on day of ED presentation, Oncology recommendation for treatment, will admit to PCU, maintain on telemetry, continue treatment w/ IV PPI, IV benadril and IV solumedrol, maintain on heated IVFs, allow oral intake warm-hot ONLY to avoid worsened reaction. Pending oncology evaluation. Allow diet if able to tolerate given neuropathy sensation in the throat, airway patent, breathing appropriate. (2) Recent Dx adenocarcinoma of the cecum: Noted pT3Na1 low risk stage IIIa, following w/ Dr. Ramos, s/p 03/[address] per Dr. Ferreira, Dr. Ramos consulted, mag normal, phos pending, calcium normal. Continue home BID oral regimen. Add zyprexa given severe nausea after regimen per Dr. Ramos recommendation. Pending Oncology evaluation given #1. (3) CAD: s/p NSTEMI, PCI RCA 04/2017, will continue home regimen asa, off plavix following R hemicolectomy and onset chemotherapy, continue home statin, BB. (4) Hypertension: Continue home regimen including isosorbide, metoprolol, holding lisinopril given atypical allergic reaction presentation although suspected secondary to chemotherapy with cold-induced neuropathy, PRN hydralazine. (5) Hyperlipidemia: Continue home statin regimen. (6) Hyperglycemia: Admission glucose 176, similar to prior presentations, recent 03/15/18 5.9% HgbA1c. (7) Obesity: Weight loss and lifestyle changes encouraged. (8) PUD/GERD: IV PPI as noted, monitor for WBC decrease and change to famotidine if needed. (9) DVT prophylaxis: SCD, Lovenox with hold as needed given mild pancytopenia and prior history GI bleed. Code Visit Inpatient E AND M: [id number] Init Hosp L3 05/16/182023 <Electronically signed by Radha Rivera > Date Radha Rivera Cosigner Signature: Date (if applicable) CC: Radha Rivera; Shlomo Dudley DO Signed CBC W/DIFF, AUTOMATED Collected: 05/16/2018 Status: F Source: [place] 5:35 PM [facility] REPOSITORY TYPE CODE TESTS RESULT OUT OF RANGE REFERENCE UNITS LAB L100.1000 4.4-11.0 K/mm3 Low WBC 3.7 LAB L100.1200 4.6-6.2 M/mm3 Low RBC 4.04 LAB L100.1300 13.0-16.5 g/dl Low HGB 11.1 LAB L100.1400 40-54 % Low HCT 35.1 LAB L100.1500 80-94 fL Normal MCV 86.9 LAB L100.1600 27.0-32.0 pg Normal MCH 27.5 LAB L100.1700 32-36 g/gl Low MCHC 31.6 LAB L100.1810 11.6-14.6 % High RDW CV 19.3 LAB L100.1820 35.1-43.9 fl High RDW SD 46.5 LAB L100.1900 150-450 K/mm3 Low PLT 147 LAB L100.2000 6.2-12.0 fl Normal MPV 8.3 LAB L100.2100 47-70 % High NEUT% 88.7 LAB L100.2200 19-41 % Low LY% 9.6 LAB L100.2300 0-10 % Normal MONO% 1.4 LAB L100.2400 0-5 % Normal EO% 0.3 LAB L100.2500 0-1 % Normal BASO% 0.0 LAB L100.2550 0.0-0.9 % Normal IM GRAN % 0.000 Result Comment: IG% - Immature Granulocytes (promyelocytes, myelocytes and metamyelocytes) > 1% indicates that a LEFT SHIFT is Present. LAB L100.2620 2.0-7.7 X10 3/uL Normal Absolute Neut 3.2 LAB L100.2720 0.83-4.51 X10 3/ul Low Absolute Lymph 0.35 LAB L100.4500 Normal SMEAR COMMENT SCANNED Result Comment: LYMPHOPENIA NOTED Performed By: #### L100.0100 #### [facility] [address] [place], [place], [address] BASIC METABOLIC Collected: 05/16/2018 Status: F Source: [place] PROFILE (BMP) 5:35 PM [facility] REPOSITORY TYPE CODE TESTS RESULT OUT OF RANGE REFERENCE UNITS LAB L501.0100 74-106 mg/dL High GLU 176 Result Comment: Fasting Glucose result greater than or equal to 126 mg/dL suggests DIABETES MELLITUS per A.D.A. criteria. Please note revised GLUCOSE reference range effective 2017. LAB L501.1000 7-18 mg/dL Normal BUN 10 LAB L501.1100 0.70-1.30 mg/dL Normal CREAT,SERUM 1.12 Result Comment: The validity of the calculated GFR AND GFRAA in patients over 70 years has not been determined. Clinical correlation is essential. LAB L501.1110 >60 mL/min Normal EST GFR 69 Result Comment: Non- GFR Calc LAB L501.1115 >60 mL/min Normal EST GFR - AA 84 Result Comment: GFR Calc LAB L501.1255 ml/min Normal Estimated CRCL 66.08 LAB L501.1300 10-20 RATIO Low BUN/CRE 8.9 LAB L501.2200 8.5-10 mg/dL Normal .1 CA 8.5 LAB L501.5300 136-14 mmol/L Normal 5 NA 141 LAB L501.5600 3.5-5. mmol/L Normal 1 K 3.6 LAB L501.5900 98-107 mmol/L Normal CL 107 LAB L501.6100 21.0-3 mmol/L Normal 2.0 CO2 23.0 LAB L501.6200 5-15 Normal GAP 11 Performed By: #### L500.2500, L501.4010 #### [facility] [address] [place], [address] TROPONIN-I Collected: 05/16/2018 Status: F Source: [place] 5:35 PM [facility] REPOSITORY TYPE CODE TESTS RESULT OUT OF RANGE REFERENCE UNITS LAB L501.4010 <0.045 ng/mL Normal < 0.015 TROPONIN-I Result Comment: TROPONIN-I EXPECTED VALUES <0.045 Negative 0.045 - 0.590 Consistent with Cardiac Damage > OR = 0.600 Critical Value Not every elevated troponin is indicative of SC. These values should be used with clinical judgement in examining the patient's clinical picture for diagnosis. To establish a diagnosis of SC versus myocardial injury, there must be a demonstrated rise and/or fall in the troponin values, in addition to ischemic symptoms, EKG changes, new regional wall motion abnormality, and/or angiographical evidence. PLEASE NOTE: REFERENCE RANGES EDITED 18 Performed By: #### L500.2500, L501.4010 #### [facility] [address] [facility] [place], [address] CHEST 1 VIEW Observed: 05/16/2018 Status: F Source: [place] (PORTABLE) 5:22 PM [facility] REPOSITORY [facility] Imaging Services [address] [facility] [place] [address] Chest 1 View (Portable) MR#: [id number] Acct: [id number] Name: MYRNA JORGENSEN Jr. Rep #: [id number] : 1950 68 From: Juan Antonio Sparrow MD PCP: Shlomo Dudley DO Status: REG ER Study: Chest 1 View (Portable) Date of Exam: 05/16/18 Exam# [id number] Ordering Dr: Aimee Babin MD STUDY: X-RAY CHEST REASON FOR EXAM: Male, 68 years old. Fever cough and sore throat TECHNIQUE: Single AP portable view of the chest. COMPARISON: 2016 FINDINGS: The lungs are clear and expanded. There is no demonstrated pleural abnormality. Normal size heart. Normal mediastinum and sandro. Normal visualized pulmonary arteries. Normal visualized aortic arch and descending thoracic aorta. There are diffuse degenerative changes of the visualized thoracic spine. Normal visualized ribs, clavicles, and shoulders. There is no demonstrated abnormality of the visualized soft tissue structures of the upper abdomen. RAD/Chest 1 View (Portable) IMPRESSION: No acute pulmonary process Electronically Signed: Yasmani Sparrow MD at 18:07 EDT , Service support , CC: Aimee Babin MD; Shlomo Dudley DO Managed Security Sales Consultant: Signed MAGNESIUM Collected: 05/16/2018 Status: F Source: [place] 5:22 PM [facility] REPOSITORY TYPE CODE TESTS RESULT OUT OF RANGE REFERENCE UNITS LAB L501.5200 1.6-2.6 mg/dL Normal MG 2.3 Performed By: #### L501.5200 #### [facility] [address] [place], [place], [address] PHOSPHORUS Collected: 05/16/2018 Status: F Source: [place] 5:22 PM [facility] REPOSITORY TYPE CODE TESTS RESULT OUT OF RANGE REFERENCE UNITS LAB L501.2300 2.5-4.9 mg/dL Low PHOS 1.3 Performed By: #### L501.2300 #### [facility] [address] [place], [address] PROGRESS Observed: 05/15/2018 Status: COMPLETED Source: [place] 10:54 AM [facility] REPOSITORY HNO ID: [id number] Author: Esteban Ramos Service: (none) Author Type: Physician Type: Progress Notes Filed: 05/15/2018 11:20 AM Note Text: Diagnosis: 1) Stage IIIA colon cancer. HPI: The patient is a 68 yo male HTN and CAD (SC 2017; 2 stents RCA). Patient was on ASA and Plavix. Had episode rectal bleeding without previous bleeding. Went to ED where bleeding continued. Admitted. MICROSCOPIC DIAGNOSIS A. Right colon, hemicolectomy: Invasive adenocarcinoma. See complete cancer checklist below. B. Soft tissue of umbilical region, excision: Fragment of fibrofatty tissue with mild fibrosis consistent with hernia sac. No evidence of malignancy. COMMENT COLON CANCER SUMMARY: Specimen ? right colon Procedure ? right hemicolectomy Tumor site ? right colon Tumor size ? 2.5 x 2 x 0.5 cm Macroscopic tumor perforation ? not identified Histologic type - adenocarcinoma Histologic grade ? low-grade (moderately differentiated) Microscopic tumor extension ? tumor invades through the muscularis propria to the subserosal adipose tissue. Tumor is located 3 cm from its closest (distal) mucosal margin of excision. Margins: Proximal margin ? uninvolved by invasive carcinoma. Distal margin - uninvolved by invasive carcinoma. Circumferential or mesenteric margin - uninvolved by invasive carcinoma. Treatment effect - unknown Lymph-Vascular invasion ? not identified. Perineural invasion ? not identified Tumor deposits - not identified Lymph nodes: Number of lymph nodes examined - 39 Number of lymph nodes involved - 1 Additional pathologic findings ? largest polyp close to ileocecal valve with focal high-grade dysplasia. Two smaller polyps ? tubular adenoma Appendix ? fibrous obliteration of distal appendix and focal hyperplastic mucosal change. Ancillary studies: Microsatellite instability - Negative (no loss of mismatch protein; no microsatellite instability detected). Immunohistochemistry studies for mismatch repair proteins: MLH1 - Intact nuclear positivity, tumor cells MSH2 - Intact nuclear positivity, tumor cells MSH6 - Intact nuclear positivity, tumor cells PMS2 - Intact nuclear positivity, tumor cells PATHOLOGIC STAGE: pT3 N1a Mx Was seen by cardiology. Was told okay to stay off Plavix. Continuing ASA daily. Current therapy: 1) CAPOX Presents for ongoing oncologic management. Interim history: Had significant nausea on days 34 and 5 with the first cycle. He took Zofran which helped curb the nausea. No actual vomiting. 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 No further nausea after day 4 or 5. No diarrhea. Small little fissure in the right corner of his mouth otherwise no symptoms of stomatitis. PMH, medications and allergies personally reviewed by me today. Any changes documented in appropriate section. ROS: Constitutional: Denies episodes of fever and night sweats. Neuro: Denies LEWIS, vertigo, dizziness and imbalance. Denies symptoms of neuropathy. HEENT: No recent change in voice, vision or hearing. Resp: Denies cough, wheeze and hemoptysis. CVS: Denies PND, orthopnea. GI: See above. : Denies dysuria or gross hematuria. No symptoms of bladder outlet obstruction. Endo: Denies hot flashes. Denies polyuria and polydipsia. Denies heat and cold intolerance. Musculoskeletal: See above. Derm: Denies rash. Denies jaundice and diffuse pruritis. Heme: Denies unusual bleeding and unexplained bruising. Psych: Normal mood. PHYSICAL EXAM: Vitals: Blood pressure 114/66, pulse (!) 58, temperature 36.7 ?C (98 ?F), temperature source Temporal Artery, weight 101.2 kg (223 lb). Well-appearing and in no acute distress. EYES: Sclerae are anicteric bilaterally. NECK: Supple. No enlargement of thyroid. LYMPHATIC: There is no palpable cervical, supraclavicular, axillary or inguinal adenopathy. RESPIRATORY: Inspiratory breath sounds are of normal intensity in all monroy. No rales, wheezes or rhonchi. Expiratory phase is normal. CARDIOVASCULAR: Rhythm is regular. Normal intensity S1/S2. There is no gallop or murmur. ABDOMEN: The abdomen is nondistended. No organomegaly. No tenderness. Extremities: No swelling or edema. SKIN: No jaundice or rash. No petechiae. NEUROLOGIC: open cut examiner II-XII are grossly intact. No focal motor weakness. DTRs are symmetric and normal. MUSCULOSKELETAL: No joint swelling or tenderness. No muscle wasting. 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 -Pathologic staging previously completed in problem list. -Tolerating chemotherapy well with the exception of nausea. ANC yesterday was 1900. -Discussed plan to continue chemotherapy with dose of capecitabine at 1500 mg twice a day secondary to lower white blood cell count. -Discussed anti-emetic regimen. We'll add fosaprepitant tomorrow and he'll take olanzapine at bedtime for 5 nights in a row. He is very sensitive to steroids secondary to trouble with chronic reflux. Therefore no use of dexamethasone unless nausea proves to need tighter control after this cycle. -Plan 3 months of therapy which will be 4 cycles of treatment. Plan: -Okay to continue treatment. RETA -continue iron carboxymaltose Esteban Ramos DO CNOVSP Observed: 05/15/2018 Status: COMPLETED Source: [place] 10:[address] [facility] REPOSITORY Visit (SP) Office (HEMAWS) MYRNA JORGENSEN ([id number]) 1950 M Date Time Provider Department 05/15/18 10:30 AM ESTEBAN RAMOS During your visit today, we recorded the following information about you: Temperature Pulse Blood pressure Weight 98 degrees 58/minute 114/66 101.2 kg Esteban Ramos DO 05/15/2018 11:20 AM Signed Diagnosis: 1) Stage IIIA colon cancer. HPI: The patient is a 68 yo male HTN and CAD (SC 2017; 2 stents RCA). Patient was on ASA and Plavix. Had episode rectal bleeding without previous bleeding. Went to ED where bleeding continued. Admitted. MICROSCOPIC DIAGNOSIS A. Right colon, hemicolectomy: Invasive adenocarcinoma. See complete cancer checklist below. B. Soft tissue of umbilical region, excision: Fragment of fibrofatty tissue with mild fibrosis consistent with hernia sac. No evidence of malignancy. COMMENT COLON CANCER SUMMARY: Specimen ? right colon Procedure ? right hemicolectomy Tumor site ? right colon Tumor size ? 2.5 x 2 x 0.5 cm Macroscopic tumor perforation ? not identified Histologic type - adenocarcinoma Histologic grade ? low-grade (moderately differentiated) Microscopic tumor extension ? tumor invades through the muscularis propria to the subserosal adipose tissue. Tumor is located 3 cm from its closest (distal) mucosal margin of excision. Margins: Proximal margin ? uninvolved by invasive carcinoma. Distal margin - uninvolved by invasive carcinoma. Circumferential or mesenteric margin - uninvolved by invasive carcinoma. Treatment effect - unknown Lymph-Vascular invasion ? not identified. Perineural invasion ? not identified Tumor deposits - not identified Lymph nodes: Number of lymph nodes examined - 39 Number of lymph nodes involved - 1 Additional pathologic findings ? largest polyp close to ileocecal valve with focal high-grade dysplasia. Two smaller polyps ? tubular adenoma Appendix ? fibrous obliteration of distal appendix and focal hyperplastic mucosal change. Ancillary studies: Microsatellite instability - Negative (no loss of mismatch protein; no microsatellite instability detected). Immunohistochemistry studies for mismatch repair proteins: MLH1 - Intact nuclear positivity, tumor cells MSH2 - Intact nuclear positivity, tumor cells MSH6 - Intact nuclear positivity, tumor cells PMS2 - Intact nuclear positivity, tumor cells PATHOLOGIC STAGE: pT3 N1a Mx Was seen by cardiology. Was told okay to stay off Plavix. Continuing ASA daily. Current therapy: 1) CAPOX Presents for ongoing oncologic management. Interim history: Had significant nausea on days 34 and 5 with the first cycle. He took Zofran which helped curb the nausea. No actual vomiting. 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 No further nausea after day 4 or 5. No diarrhea. Small little fissure in the right corner of his mouth otherwise no symptoms of stomatitis. PMH, medications and allergies personally reviewed by me today. Any changes documented in appropriate section. ROS: Constitutional: Denies episodes of fever and night sweats. Neuro: Denies LEWIS, vertigo, dizziness and imbalance. Denies symptoms of neuropathy. HEENT: No recent change in voice, vision or hearing. Resp: Denies cough, wheeze and hemoptysis. CVS: Denies PND, orthopnea. GI: See above. : Denies dysuria or gross hematuria. No symptoms of bladder outlet obstruction. Endo: Denies hot flashes. Denies polyuria and polydipsia. Denies heat and cold intolerance. Musculoskeletal: See above. Derm: Denies rash. Denies jaundice and diffuse pruritis. Heme: Denies unusual bleeding and unexplained bruising. Psych: Normal mood. PHYSICAL EXAM: Vitals: Blood pressure 114/66, pulse (!) 58, temperature 36.7 ?C (98 ?F), temperature source Temporal Artery, weight 101.2 kg (223 lb). Well-appearing and in no acute distress. EYES: Sclerae are anicteric bilaterally. NECK: Supple. No enlargement of thyroid. LYMPHATIC: There is no palpable cervical, supraclavicular, axillary or inguinal adenopathy. RESPIRATORY: Inspiratory breath sounds are of normal intensity in all monroy. No rales, wheezes or rhonchi. Expiratory phase is normal. CARDIOVASCULAR: Rhythm is regular. Normal intensity S1/S2. There is no gallop or murmur. ABDOMEN: The abdomen is nondistended. No organomegaly. No tenderness. Extremities: No swelling or edema. SKIN: No jaundice or rash. No petechiae. NEUROLOGIC: open cut examiner II-XII are grossly intact. No focal motor weakness. DTRs are symmetric and normal. MUSCULOSKELETAL: No joint swelling or tenderness. No muscle wasting. 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 -Pathologic staging previously completed in problem list. -Tolerating chemotherapy well with the exception of nausea. ANC yesterday was 1900. -Discussed plan to continue chemotherapy with dose of capecitabine at 1500 mg twice a day secondary to lower white blood cell count. -Discussed anti-emetic regimen. We'll add fosaprepitant tomorrow and he'll take olanzapine at bedtime for 5 nights in a row. He is very sensitive to steroids secondary to trouble with chronic reflux. Therefore no use of dexamethasone unless nausea proves to need tighter control after this cycle. -Plan 3 months of therapy which will be 4 cycles of treatment. Plan: -Okay to continue treatment. RETA -continue iron carboxymaltose Esteban Ramos DO Referring Provider: CHRIS FERREIRA [[id number]] Allergies As of Date: 05/15/2018 Noted Allergy Reaction PRILOSEC (OMEPRAZOLE) 09/20/2005 Date Reviewed: 05/15/2018 Reviewed by: Patricia Guadarrama - Fully Assessed Reason for Visit: Established Patient [175] Primary Visit Diagnosis:Cancer of cecum (HCC) [C18.0] Other Visit Diagnosis:Metastatic cancer to intra-abdominal lymph nodes (HCC) [C77.2] Order(s):OLANZapine (ZYPREXA) 10 mg tabletTake 1 tablet by mouth daily at bedtime. for 5 nights beginning the night of each chemotherapy infusion.Disp: 5 tabletRfl: 5 Follow-up and Disposition History Recorded Prescriptions as of 05/15/2018 Sig: METAMUCIL ORAL Take 2 Tablespoonsful by mout* ONDANSETRON HCL 8 MG TABLET Take 1 tablet by mouth every * GLUCOSAMINE [id number]* Take 1 tablet by mouth once d* CAPECITABINE 500 MG TABLET Take 4 tablets by mouth twice* TRIAMCINOLONE ACETONIDE 55 MC* Use 2 Sprays in the nose once* ASPIRIN 81 MG TABLET,DELAYED * Take 81 mg by mouth once curtis* ATORVASTATIN 80 MG TABLET Take 80 mg by mouth once curtis* ISOSORBIDE MONONITRATE ER 30 * Take 30 mg by mouth once curtis* LISINOPRIL 20 MG TABLET Take 20 mg by mouth once curtis* METOPROLOL TARTRATE 25 MG TAB* Take 25 mg by mouth twice cely* MIRALAX ORAL Take 1 scoop by mouth once da* TAMSULOSIN 0.4 MG CAPSULE Take 1 capsule by mouth daily* RABEPRAZOLE 20 MG TABLET,MIA* Take 1 tablet by mouth once d* Patient taking differently: Take 20 mg by mouth twice cely* OLANZAPINE 10 MG TABLET Take 1 tablet by mouth daily * Medication notes this encounter CAPECITABINE 500 MG TABLET >> Patricia Guadarrama MA 05/15/2018 10:26 AM >> PATRICIA GUADARRAMA MA May 15, 2018 10:26 AM Taking 3 tablets twice daily x 14 days, then off x 1 week. Problem List As Of Date 05/15/2018 Noted Resolved CALCULUS OF KIDNEY [N20.0] INVALID FOR* BENIGN HYPERTENSION [I10] INVALID FOR* HYPERLIPIDEMIA NEC/NOS [E78.5] INVALID FOR* ESOPHAGEAL REFLUX [K21.9] INVALID FOR* Vasomotor rhinitis [J30.0] INVALID FOR* BPH (benign prostatic hyperplasia) [N40.0] INVALID FOR* Cancer of cecum (HCC) [C18.0] INVALID FOR* Metastatic cancer to intra-abdominal lymph node*INVALID FOR* Iron deficiency anemia due to chronic blood los*INVALID FOR* Iron malabsorption [K90.9] INVALID FOR* Encounter Status:Closed by ESTEBAN RAMOS DO on 05/15/18 CBC W/DIFF, AUTOMATED Collected: 05/14/2018 Status: F Source: [place] 9:31 AM [facility] REPOSITORY TYPE CODE TESTS RESULT OUT OF RANGE REFERENCE UNITS LAB L100.1000 4.4-11.0 K/mm3 Low WBC 3.0 LAB L100.1200 4.6-6.2 M/mm3 Low RBC 3.95 LAB L100.1300 13.0-16.5 g/dl Low HGB 11.0 LAB L100.1400 40-54 % Low HCT 34.2 LAB L100.1500 80-94 fL Normal MCV 86.6 LAB L100.1600 27.0-32.0 pg Normal MCH 27.8 LAB L100.1700 32-36 g/gl Normal MCHC 32.2 LAB L100.1810 11.6-14.6 % High RDW CV 19.0 LAB L100.1820 35.1-43.9 fl Normal RDW SD 41.7 LAB L100.1900 150-450 K/mm3 Normal PLT 202 LAB L100.2000 6.2-12.0 fl Normal MPV 8.2 LAB L100.2100 47-70 % Normal NEUT% 61.4 LAB L100.2200 19-41 % Normal LY% 21.3 LAB L100.2300 0-10 % High MONO% 14.6 LAB L100.2400 0-5 % Normal EO% 1.7 LAB L100.2500 0-1 % Normal BASO% 0.3 LAB L100.2550 0.0-0.9 % Normal IM GRAN % 0.700 Result Comment: IG% - Immature Granulocytes (promyelocytes, myelocytes and metamyelocytes) > 1% indicates that a LEFT SHIFT is Present. LAB L100.2620 2.0-7.7 X10 3/uL Low Absolute Neut 1.9 LAB L100.2720 0.83-4.51 X10 3/ul Low Absolute Lymph 0.64 Performed By: #### L100.0100 #### [facility] [address] [place], [address] COMPREHENSIVE METABOLIC Collected: 05/14/2018 Status: F Source: [facility] 9:31 AM [facility] REPOSITORY TYPE CODE TESTS RESULT OUT OF RANGE REFERENCE UNITS LAB L501.0100 74-106 mg/dL High GLU 133 Result Comment: Fasting Glucose result greater than or equal to 126 mg/dL suggests DIABETES MELLITUS per A.D.A. criteria. Please note revised GLUCOSE reference range effective 2017. LAB L501.1000 7-18 mg/dL Normal BUN 9 LAB L501.1100 0.70-1.30 mg/dL Normal CREAT,SERUM 1.09 Result Comment: The validity of the calculated GFR AND GFRAA in patients over 70 years has not been determined. Clinical correlation is essential. LAB L501.1110 >60 mL/min Normal EST GFR 72 Result Comment: Non- GFR Calc LAB L501.1115 >60 mL/min Normal EST GFR - AA 87 Result Comment: GFR Calc LAB L501.1300 10-20 RATIO Low BUN/CRE 8.3 LAB L501.1500 6.4-8.2 g/dL Normal T PROT 7.3 LAB L501.1800 3.2-5.0 g/dL Normal ALB 3.8 LAB L501.1950 2.2-4.2 g/dL Normal GLOB 3.5 LAB L501.2000 0.9-2.4 RATIO Normal A/G 1.1 LAB L501.2200 8.5-10.1 mg/dL Normal CA 8.5 LAB L501.4100 15-37 U/L Normal AST 26 LAB L501.4305 45-117 U/L Normal ALK P 87 LAB L501.4405 16-61 U/L Normal ALT 43 LAB L501.4600 0.20-1.00 mg/dL Normal T BILI 0.60 LAB L501.5300 136-145 mmol/L Normal NA 143 LAB L501.5600 3.5-5.1 mmol/L Normal K 3.8 LAB L501.5900 98-107 mmol/L Normal CL 106 LAB L501.6100 21.0-32.0 mmol/L Normal CO2 25.0 LAB L501.6200 5-15 Normal GAP 12 Performed By: #### L500.4050 #### [facility] [address] [place], [place], [address] CNPN Observed: 04/27/2018 Status: COMPLETED Source: [place] 12:[address] [facility] REPOSITORY Telephone (NIMA) MYRNA JORGENSEN ([id number]) 1950 M Date Time Provider Department 04/27/18 FINANCIAL NAVIGATOR SARAN NIMA During your visit today, we recorded the following information about you: BrigidChiSunita Gonsalez 04/27/2018 11:17 AM Signed OOP report- benefit investigation complete.Spoke with patient, received authorization to speak with spouse. Called [employer], spoke with [facility] ref # [id number]. Advised [facility] is OON and if pre cert is approved patients responsibility is 20% coinsurance. Precert is to be completed through Utilization Management, fax # . Estimate shows patient financial responsibility is $0 for each treatment in 2018 until oop max is reached. Patient stated understanding. Although estimate shows $0 patient responsibility for the drug, I explained copay assistance and spouse authorized me to proceed with enrollment once funding becomes available. Reference #: [id number] Estimate run by Meme Summers Pssebastian 05/10/2018 1:35 PM Signed Spouse called regarding the jessica to assist with patient' chemo treatment. Please advise to caller at [phone]. Caller inquires regarding the progress that is being made. Allergies As of Date: 04/27/2018 Noted Allergy Reaction PRILOSEC (OMEPRAZOLE) 09/20/2005 Date Reviewed: 04/20/2018 Reviewed by: Meryl Amaral LPN - Fully Assessed Reason for Visit: Benefits Investigation [4588] Prescriptions as of 04/27/2018 Sig: ONDANSETRON HCL 8 MG TABLET Take 1 tablet by mouth every * GLUCOSAMINE [id number]* Take by mouth. CAPECITABINE 500 MG TABLET Take 4 tablets by mouth twice* TIZANIDINE 4 MG CAPSULE Take 1 capsule by mouth three* TRIAMCINOLONE ACETONIDE 55 MC* Use 2 Sprays in the nose once* ASPIRIN 81 MG TABLET,DELAYED * Take 81 mg by mouth once curtis* ATORVASTATIN 80 MG TABLET Take 80 mg by mouth once curtis* ISOSORBIDE MONONITRATE ER 30 * Take 30 mg by mouth once curtis* LISINOPRIL 20 MG TABLET Take 20 mg by mouth once curtis* METOPROLOL TARTRATE 25 MG TAB* Take 25 mg by mouth twice cely* MIRALAX ORAL Take 1 scoop by mouth once da* TAMSULOSIN 0.4 MG CAPSULE Take 1 capsule by mouth daily* RABEPRAZOLE 20 MG TABLET,MIA* Take 1 tablet by mouth once d* Patient taking differently: Take 20 mg by mouth twice cely* Problem List As Of Date 04/27/2018 Noted Resolved CALCULUS OF KIDNEY [N20.0] INVALID FOR* BENIGN HYPERTENSION [I10] INVALID FOR* HYPERLIPIDEMIA NEC/NOS [E78.5] INVALID FOR* ESOPHAGEAL REFLUX [K21.9] INVALID FOR* Vasomotor rhinitis [J30.0] INVALID FOR* BPH (benign prostatic hyperplasia) [N40.0] INVALID FOR* Cancer of cecum (HCC) [C18.0] INVALID FOR* Metastatic cancer to intra-abdominal lymph node*INVALID FOR* Iron deficiency anemia due to chronic blood los*INVALID FOR* Iron malabsorption [K90.9] INVALID FOR* Encounter Status:Closed by SHRADDHA GONSALEZ on 04/27/18 MICHA Observed: 04/26/2018 Status: COMPLETED Source: [place] 12:[address] [facility] REPOSITORY Telephone (NIMA) MYRNA JORGENSEN ([id number]) 1950 M Date Time Provider Department 04/26/18 KASEY MIJARES) NIMA During your visit today, we recorded the following information about you: Kasey Mijares RN, RN 04/26/2018 10:42 AM Signed CYCLE 1/DAY 1 POST TREATMENT CALL Today's date: April 26, 2018 Treatment Regimen: Capeox C1D1 Date: 04/25/2018 Called patient to follow-up on symptom management. Spoke with Patient reports treatment related symptoms: YES Other: cold induced peripheral neuropathy, abdominal discomfort that resolved Patient reports adequate fluid and nutrition intake: YES Reinforced applicable treatment education based on current and anticipated symptoms. Patient instructed to contact office or after hours Hematology/Oncology fellow for: temperature ? 100.4; questions or concerns. Contact information provided. denies N/V, bowel changes, rash. stated patient had abdominal discomfort this AM but resolved shortly after. stated patietnt's appetite is good and he is drinking 64+ ounces of fluids daily. instructed to call this office with a temperature of 100.4F or higher, worsening symptoms, questions or concerns. stated understanding. Kasey Mijares, RN Kasey Mijares, RN, RN 04/26/2018 10:45 AM Signed ORAL ANTI-CANCER AGENTS FOLLOW-UP PHONE CALL/VISIT spouse called today for follow- up on Capecitabine (Xeloda) for Colon / Rectal Cancer. Patient is on cycle 1, week 1, day 2 GENERAL ASSESSMENT: 1. Verified patient able to identify the medication they are taking: Yes 2. Verified patient was able to identify the correct dose prescribed: Yes 3. Verified patient understands reason for prescribed medication: Yes ADMINISTRATION ASSESSMENT: 1. Verified patient is able to open medication bottles and packages? Yes 2. Verified patient is able to read drug label information? Yes 3. Verified patient knows the dose and schedule of oral chemo agent:Yes 4. Verified patient knows what to do if a medication dose is missed. Yes 5. Verified patient is able to swallow pills: Yes 6. Verified patient is taking the pill whole Yes 7. Where is the patient storing the oral agent? Kitchen 8. Was review needed on where to correctly store the medication (out of sunlight, away from heat and/or humidity)? No 9. Was review given on how to correctly handle the oral agent, any body fluids, and soiled linen at this time? No SIDE EFFECT ASSESSMENT: 1. Verified patient understands potential side effects and how to manage them. Yes: Nausea , Vomiting, Constipation, Diarrhea, Fever / Chills / Risk for Neutropenic Fever, Headache, Neutropenia, Thrombocytopenia, Anemia, Mucositis, Fatigue, Alopecia , Abdominal Discomfort, Hand-foot Syndrome, Rash, Myalgia, Arthalgia and Fluid Retention 2. Verified patient understands neutropenia management (fever and/or chills). Yes 3. Has the patient started any new medications or herbal supplements since last visit? No ADDITIONAL FOLLOW UP: 1. Verified patient verbalized how to correctly refill the oral agent prescription. Yes 2. Does the patient have any financial difficulties affording this medication? No 3. Any additional follow-up needed at this time? Yes, instructed to call with any questions or concerns. 4. Verified patient is aware of next appointment in the cancer center: Yes. Patient is aware to call with any additional concerns or questions at this time. Reviewed the importance for the patient to take the oral agent as prescribed and to call if unable to take the agent. The next follow-up phone call is due on : Next week for Toxicity check Total time spent with patient: 15 minutes Total time spent on encounter: 20 minutes Kasey Mijares RN Allergies As of Date: 04/26/2018 Noted Allergy Reaction PRILOSEC (OMEPRAZOLE) 09/20/2005 Date Reviewed: 04/20/2018 Reviewed by: Meryl Amaral LPN - Fully Assessed Reason for Visit: Care Coordination [3491] Cmt: Cycle 1/Day 1 Post Treatment Call / Oral anti-cancer agents follow-up Reason For Visit History Recorded Prescriptions as of 04/26/2018 Sig: ONDANSETRON HCL 8 MG TABLET Take 1 tablet by mouth every * GLUCOSAMINE [id number]* Take by mouth. CAPECITABINE 500 MG TABLET Take 4 tablets by mouth twice* TIZANIDINE 4 MG CAPSULE Take 1 capsule by mouth three* TRIAMCINOLONE ACETONIDE 55 MC* Use 2 Sprays in the nose once* ASPIRIN 81 MG TABLET,DELAYED * Take 81 mg by mouth once curtis* ATORVASTATIN 80 MG TABLET Take 80 mg by mouth once curtis* ISOSORBIDE MONONITRATE ER 30 * Take 30 mg by mouth once curtis* LISINOPRIL 20 MG TABLET Take 20 mg by mouth once curtis* METOPROLOL TARTRATE 25 MG TAB* Take 25 mg by mouth twice cely* MIRALAX ORAL Take 1 scoop by mouth once da* TAMSULOSIN 0.4 MG CAPSULE Take 1 capsule by mouth daily* RABEPRAZOLE 20 MG TABLET,MIA* Take 1 tablet by mouth once d* Patient taking differently: Take 20 mg by mouth twice cely* Problem List As Of Date 04/26/2018 Noted Resolved CALCULUS OF KIDNEY [N20.0] INVALID FOR* BENIGN HYPERTENSION [I10] INVALID FOR* HYPERLIPIDEMIA NEC/NOS [E78.5] INVALID FOR* ESOPHAGEAL REFLUX [K21.9] INVALID FOR* Vasomotor rhinitis [J30.0] INVALID FOR* BPH (benign prostatic hyperplasia) [N40.0] INVALID FOR* Cancer of cecum (HCC) [C18.0] INVALID FOR* Metastatic cancer to intra-abdominal lymph node*INVALID FOR* Iron deficiency anemia due to chronic blood los*INVALID FOR* Iron malabsorption [K90.9] INVALID FOR* Encounter Status:Closed by KASEY MIJARES on 04/26/18 MICHA Observed: 04/24/2018 Status: COMPLETED Source: [place] 12:[address] [facility] REPOSITORY Telephone (HEMAWS) MYRNA JORGENSEN ([id number]) 1950 M Date Time Provider Department 04/24/18 ESTEBAN RAMOS During your visit today, we recorded the following information about you: Shirin Cardenas Psr 04/24/2018 11:38 AM Signed Patient's PCP gave him Prednisone for his achy joints. Patient asking if ok to start this medication today due to have his first tx starting tomorrow. Please advise and call patient. Thank you. Esteban Ramos DO 04/24/2018 12:58 PM Signed Yes. Also, can let him know I received the results of the iron studies run over at [facility]. I would like for him to get a dose of iron carboxymaltose when he is here tomorrow for chemotherapy and then at the time of his second chemotherapy. Orders filed. DO HORTENCIA Sanchez, RN, RN 04/24/2018 1:20 PM Signed Message given to patient and verbalizing understanding of all instructions Joanne Prather Psr 04/24/2018 1:38 PM Signed Added to appointment notes. New referral has been attached. Allergies As of Date: 04/24/2018 Noted Allergy Reaction PRILOSEC (OMEPRAZOLE) 09/20/2005 Date Reviewed: 04/20/2018 Reviewed by: Meryl Amaral LPN - Fully Assessed Reason for Visit: patient medication question [Other] Prescriptions as of 04/24/2018 Sig: ONDANSETRON HCL 8 MG TABLET Take 1 tablet by mouth every * GLUCOSAMINE [id number]* Take by mouth. CAPECITABINE 500 MG TABLET Take 4 tablets by mouth twice* TIZANIDINE 4 MG CAPSULE Take 1 capsule by mouth three* TRIAMCINOLONE ACETONIDE 55 MC* Use 2 Sprays in the nose once* ASPIRIN 81 MG TABLET,DELAYED * Take 81 mg by mouth once curtis* ATORVASTATIN 80 MG TABLET Take 80 mg by mouth once curtis* ISOSORBIDE MONONITRATE ER 30 * Take 30 mg by mouth once curtis* LISINOPRIL 20 MG TABLET Take 20 mg by mouth once curtis* METOPROLOL TARTRATE 25 MG TAB* Take 25 mg by mouth twice cely* MIRALAX ORAL Take 1 scoop by mouth once da* TAMSULOSIN 0.4 MG CAPSULE Take 1 capsule by mouth daily* RABEPRAZOLE 20 MG TABLET,MIA* Take 1 tablet by mouth once d* Patient taking differently: Take 20 mg by mouth twice cely* Problem List As Of Date 04/24/2018 Noted Resolved CALCULUS OF KIDNEY [N20.0] INVALID FOR* BENIGN HYPERTENSION [I10] INVALID FOR* HYPERLIPIDEMIA NEC/NOS [E78.5] INVALID FOR* ESOPHAGEAL REFLUX [K21.9] INVALID FOR* Vasomotor rhinitis [J30.0] INVALID FOR* BPH (benign prostatic hyperplasia) [N40.0] INVALID FOR* Cancer of cecum (HCC) [C18.0] INVALID FOR* Metastatic cancer to intra-abdominal lymph node*INVALID FOR* Iron deficiency anemia due to chronic blood los*INVALID FOR* Iron malabsorption [K90.9] INVALID FOR* Encounter Status:Closed by HORTENCIA KLINE on 04/24/18 PROGRESS Observed: 04/23/2018 Status: COMPLETED Source: [place] 3:08 PM [facility] HNO ID: [id number] Author: Sabina Saravia (Sw) Service: (none) Author Type: Director Dental Services Type: Progress Notes Filed: 04/23/2018 3:27 PM Note Text: PSYCHOSOCIAL ASSESSMENT Date of Service: April 23, 2018 Myrna Jorgensen is a 68 year old male being seen for initial social work assessment. Diagnosis: cancer of cecum New Primary Oncologist: Dr. Ramos Radiation Oncologist: BHARTI Goals of Care: Curative intent Today's visit includes: self/patient and spouse Family History of Cancer: no family history *SUPPORT NETWORK: Marital status: Parent(s): Mother is and Father is Child/Children: Yes. How many? 1 son, 1 daughter and 1 step-daughter dog day care attendant arrangements needed: No Siblings: 4 sister(s) and 2 brother(s) (both brothers ) Grandchild(moisés): 6 Home Health Provider: No Community Services: No Jo-Ann Identified: Yes Buddhist/Spirituality: Amish Are these practices or beliefs that may affect or influence treatment? No *EMPLOYMENT/FINANCIAL/HEALTH INSURANCE: Employment: Retired Income source: Social Security and Long-Term Pension Insurance: Medicare HMO Prescription coverage: Yes COBRA Is the patient appropriate for referral to [facility] COBRA Assistance program? No Financial Distress: No [place]: No *LIVING ARRANGEMENTS: Type: Condo-independent Resides with: Family Spouse and parrot *FUNCTIONAL STATUS: Cognitive limitations: none Physical limitations: high level fatigue Language barrier: No Hearing Impaired: Yes some hearing loss, but nothing major Speech Impaired: No Visual Impairments: Yes, reading glasses Literacy Issues: No Special considerations/accommodations needed: No MENTAL HEALTH HISTORY: No History of combat/trauma: No Substance Use and Treatment History: denied History of Abuse: No Issues with: ? Sleep:No ? Eating:No ? Exercising: No ? Stress Management: No *ADVANCE DIRECTIVES/LEGAL DOCUMENTS: Living Will: Yes Health Care Durable Power of Collections Analyst: Yes Scanned into [facility] [employer]: Yes Guardianship: NA Scanned into EPIC:NA *COPING STATUS: Coping Strengths: supportive relationships with immediate family, with friends, with extended family, with neighbors and with rastafarian spirituality successful managing past crises hopefulness self advocate strong problem-solving skills ability to plan able to follow direction consistently over time able to communicate effectively uses physical exercise Current affect/mood: appropriate History of Loss: Yes, mother, father, two brothers Adjustment to diagnosis: reflecting understanding, responding appropriately and accepting help *BARRIERS/CARE CHALLENGES: None Are barriers/care challenges identified likely to have an impact on the patient's quality of life during treatment? NA *CLINICAL IMPRESSION: SW met with patient and his spouse following his chemotherapy education appointment. Patient reports strong support system from spouse, children, grandchildren and sisters. Patient reports no family history of cancer and states he experienced no side effects or symptoms before his diagnosis. Patient reports he used to walk 8-10 miles/day, but recently has been walking only two because he is feeling more fatigued from anemia. Patient reports he sleeps well, has a good appetite and has no physical or cognitive issues besides the fatigue. Patient is retired and receives Social Security and has a Medicare Advantage plan that combines his A, B and D. Patient did not have Advance Directives, but was agreeable to completing these today. SW will scan copy into his chart. SINCERE oriented patient to services and provided him with a list of local community resources. INTERVENTIONS/REFERRALS TO BE PROVIDED: Monitor patient response to treatment Communicate pertinent medical/psychosocial information to Cancer Center team Provide emotional support to patient/family Referral to community resource Assist with financial support applications Psychotherapy/Counseling Education Relaxation Techniques Financial Applications Provided education on distress and screening process Continue follow up as needed Resources and Referrals: ? Internal: [facility] ? External: [facility] PLAN: Follow up appointment with SINCERE in: [facility] CNSW Observed: 04/23/2018 Status: COMPLETED Source: [place] 12:[address] [facility] REPOSITORY Social Work (NIMA) MYRNA JORGENSEN ([id number]) 1950 M Date Time Provider Department 04/23/18 SABINA SARAVIA (SW) During your visit today, we recorded the following information about you: WAQAS Fuchs 04/23/2018 3:27 PM Signed PSYCHOSOCIAL ASSESSMENT Date of Service: April 23, 2018 Myrna Jorgensen is a 68 year old male being seen for initial social work assessment. Diagnosis: cancer of cecum New Primary Oncologist: Dr. Ramos Radiation Oncologist: BHARTI Goals of Care: Curative intent Today's visit includes: self/patient and spouse Family History of Cancer: no family history *SUPPORT NETWORK: Marital status: Parent(s): Mother is and Father is Child/Children: Yes. How many? 1 son, 1 daughter and 1 step-daughter dog day care attendant arrangements needed: No Siblings: 4 sister(s) and 2 brother(s) (both brothers ) Grandchild(moisés): 6 Home Health Provider: No Community Services: No Jo-Ann Identified: Yes Buddhist/Spirituality: Amish Are these practices or beliefs that may affect or influence treatment? No *EMPLOYMENT/FINANCIAL/HEALTH INSURANCE: Employment: Retired Income source: Social Security and Long-Term Pension Insurance: Medicare HMO Prescription coverage: Yes COBRA Is the patient appropriate for referral to [facility] COBRA Assistance program? No Financial Distress: No : No *LIVING ARRANGEMENTS: Type: Condo-independent Resides with: Family Spouse and parrot *FUNCTIONAL STATUS: Cognitive limitations: none Physical limitations: high level fatigue Language barrier: No Hearing Impaired: Yes some hearing loss, but nothing major Speech Impaired: No Visual Impairments: Yes, reading glasses Literacy Issues: No Special considerations/accommodations needed: No MENTAL HEALTH HISTORY: No History of combat/trauma: No Substance Use and Treatment History: denied History of Abuse: No Issues with: ? Sleep:No ? Eating:No ? Exercising: No ? Stress Management: No *ADVANCE DIRECTIVES/LEGAL DOCUMENTS: Living Will: Yes Health Care Durable Power of Collections Analyst: Yes Scanned into [facility] [employer]: Yes Guardianship: NA Scanned into [facility]:NA *COPING STATUS: Coping Strengths: supportive relationships with immediate family, with friends, with extended family, with neighbors and with rastafarian spirituality successful managing past crises hopefulness self advocate strong problem-solving skills ability to plan able to follow direction consistently over time able to communicate effectively uses physical exercise Current affect/mood: appropriate History of Loss: Yes, mother, father, two brothers Adjustment to diagnosis: reflecting understanding, responding appropriately and accepting help *BARRIERS/CARE CHALLENGES: None Are barriers/care challenges identified likely to have an impact on the patient's quality of life during treatment? NA *CLINICAL IMPRESSION: SW met with patient and his spouse following his chemotherapy education appointment. Patient reports strong support system from spouse, children, grandchildren and sisters. Patient reports no family history of cancer and states he experienced no side effects or symptoms before his diagnosis. Patient reports he used to walk 8-10 miles/day, but recently has been walking only two because he is feeling more fatigued from anemia. Patient reports he sleeps well, has a good appetite and has no physical or cognitive issues besides the fatigue. Patient is retired and receives Social Security and has a Medicare Advantage plan that combines his A, B and D. Patient did not have Advance Directives, but was agreeable to completing these today. SW will scan copy into his chart. SW oriented patient to services and provided him with a list of local community resources. INTERVENTIONS/REFERRALS TO BE PROVIDED: Monitor patient response to treatment Communicate pertinent medical/psychosocial information to Cancer Center team Provide emotional support to patient/family Referral to community resource Assist with financial support applications Psychotherapy/Counseling Education Relaxation Techniques Financial Applications Provided education on distress and screening process Continue follow up as needed Resources and Referrals: ? Internal: [facility] ? External: [facility] PLAN: Follow up appointment with SINCERE in: [facility] Allergies As of Date: 04/23/2018 Noted Allergy Reaction PRILOSEC (OMEPRAZOLE) 09/20/2005 Date Reviewed: 04/20/2018 Reviewed by: Meryl Amaral LPN - Fully Assessed Reason for Visit: Psychosocial Assessment [[id number]] Prescriptions as of 04/23/2018 Sig: GLUCOSAMINE [id number]* Take by mouth. CAPECITABINE 500 MG TABLET Take 4 tablets by mouth twice* TIZANIDINE 4 MG CAPSULE Take 1 capsule by mouth three* TRIAMCINOLONE ACETONIDE 55 MC* Use 2 Sprays in the nose once* ASPIRIN 81 MG TABLET,DELAYED * Take 81 mg by mouth once curtis* ATORVASTATIN 80 MG TABLET Take 80 mg by mouth once curtis* ISOSORBIDE MONONITRATE ER 30 * Take 30 mg by mouth once curtis* LISINOPRIL 20 MG TABLET Take 20 mg by mouth once curtis* METOPROLOL TARTRATE 25 MG TAB* Take 25 mg by mouth twice cely* MIRALAX ORAL Take 1 scoop by mouth once da* TAMSULOSIN 0.4 MG CAPSULE Take 1 capsule by mouth daily* RABEPRAZOLE 20 MG TABLET,MIA* Take 1 tablet by mouth once d* Patient taking differently: Take 20 mg by mouth twice cely* Problem List As Of Date 04/23/2018 Noted Resolved CALCULUS OF KIDNEY [N20.0] INVALID FOR* BENIGN HYPERTENSION [I10] INVALID FOR* HYPERLIPIDEMIA NEC/NOS [E78.5] INVALID FOR* ESOPHAGEAL REFLUX [K21.9] INVALID FOR* Vasomotor rhinitis [J30.0] INVALID FOR* BPH (benign prostatic hyperplasia) [N40.0] INVALID FOR* Cancer of cecum (HCC) [C18.0] INVALID FOR* Metastatic cancer to intra-abdominal lymph node*INVALID FOR* Encounter Status:Closed by SABINA SARAVIA on 04/23/18 FERRITIN Collected: 04/20/2018 Status: F Source: [place] 12:[address] [facility] REPOSITORY TYPE CODE TESTS RESULT OUT OF REFERENCE UNITS RANGE LAB FERR 30.3-565.7 ng/mL Test Ferritin sent to [facility]. Result Comment: Account Credited HIDE IRON AND TIBC Collected: 04/20/2018 Status: F Source: [place] 12:[address] [facility] REPOSITORY TYPE CODE TESTS RESULT OUT OF REFERENCE UNITS RANGE LAB IRN 41-186 ug/dL Test Iron sent to [facility]. Result Comment: Account Credited HIDE LAB TIBC 232-386 ug/dL Test sent TIBC to [facility]. Result Comment: Account Credited HIDE LAB SAT 15-57 % Transferrin Test sent Saturatn to [facility]. Result Comment: Account Credited HIDE IRON BINDING Collected: 04/20/2018 Status: F Source: [facility] 12:10 PM [facility] REPOSITORY TYPE CODE TESTS RESULT OUT OF RANGE REFERENCE UNITS LAB L503.6075 250-450 ug/dL Normal TIBC 379 Performed By: #### L503.6075, L503.6150, L503.6550 #### [facility] [address] [facility] [id number] (498) IRON Collected: 04/20/2018 Status: F Source: [place] 12:10 PM [facility] REPOSITORY TYPE CODE TESTS RESULT OUT OF RANGE REFERENCE UNITS LAB [id number] 65-175 ug/dL Low IRON 26 Performed By: #### L503.6075, L503.6150, L503.6550 #### [facility] [address] [place], [address] FERRITIN Collected: 04/20/2018 Status: F Source: [place] 12:10 PM [facility] REPOSITORY TYPE CODE TESTS RESULT OUT OF REFERENCE UNITS RANGE LAB L503.6550 26-388 ng/mL Low FERRITIN 12 Performed By: #### L503.6075, L503.6150, L503.6550 #### [facility] [address] [facility] [id number] PROGRESS Observed: 04/20/2018 Status: COMPLETED Source: [place] 11:[address] [facility] REPOSITORY HNO ID: [id number] Author: Esteban Ramos Service: (none) Author Type: Physician Type: Progress Notes Filed: 04/20/2018 12:07 PM Note Text: Diagnosis: 1) Stage IIIA colon cancer. HPI: The patient is a 68 yo male HTN and CAD (SC 2017; 2 stents RCA). Patient was on ASA and Plavix. Had episode rectal bleeding without previous bleeding. Went to ED where bleeding continued. Admitted. MICROSCOPIC DIAGNOSIS A. Right colon, hemicolectomy: Invasive adenocarcinoma. See complete cancer checklist below. B. Soft tissue of umbilical region, excision: Fragment of fibrofatty tissue with mild fibrosis consistent with hernia sac. No evidence of malignancy. COMMENT COLON CANCER SUMMARY: Specimen ? right colon Procedure ? right hemicolectomy Tumor site ? right colon Tumor size ? 2.5 x 2 x 0.5 cm Macroscopic tumor perforation ? not identified Histologic type - adenocarcinoma Histologic grade ? low-grade (moderately differentiated) Microscopic tumor extension ? tumor invades through the muscularis propria to the subserosal adipose tissue. Tumor is located 3 cm from its closest (distal) mucosal margin of excision. Margins: Proximal margin ? uninvolved by invasive carcinoma. Distal margin - uninvolved by invasive carcinoma. Circumferential or mesenteric margin - uninvolved by invasive carcinoma. Treatment effect - unknown Lymph-Vascular invasion ? not identified. Perineural invasion ? not identified Tumor deposits - not identified Lymph nodes: Number of lymph nodes examined - 39 Number of lymph nodes involved - 1 Additional pathologic findings ? largest polyp close to ileocecal valve with focal high-grade dysplasia. Two smaller polyps ? tubular adenoma Appendix ? fibrous obliteration of distal appendix and focal hyperplastic mucosal change. Ancillary studies: Microsatellite instability - Negative (no loss of mismatch protein; no microsatellite instability detected). Immunohistochemistry studies for mismatch repair proteins: MLH1 - Intact nuclear positivity, tumor cells MSH2 - Intact nuclear positivity, tumor cells MSH6 - Intact nuclear positivity, tumor cells PMS2 - Intact nuclear positivity, tumor cells PATHOLOGIC STAGE: pT3 N1a Mx Presents for ongoing oncologic management. Interim history: Was seen by cardiology. Was told okay to stay off Plavix. Continuing ASA daily. He's not had any chest pain/pressure or tightness. No palpitation. No shortness of breath at rest or with exertion. No lower extremity swelling or edema. Still somewhat constipated, but relieved with Miralax. Appetite good. No nausea. He's not having any abdominal pain, bloating or distention. No signs of GI bleeding including melena and hematochezia. No episodes of jaundice. 3 different areas of back pain he had at presentation here including right-sided sciatica were significantly improved after taking several days of muscle relaxer. PMH, medications and allergies personally reviewed by me today. Any changes documented in appropriate section. ROS: Constitutional: Denies episodes of fever and night sweats. Neuro: Denies LEWIS, vertigo, dizziness and imbalance. Denies symptoms of neuropathy. HEENT: No recent change in voice, vision or hearing. Resp: Denies cough, wheeze and hemoptysis. CVS: Denies PND, orthopnea. GI: Denies dysgeusia. Denies symptoms of stomatitis. Denies dysphagia and odynophagia. Denies reflux (on terminal carman Aciphex) , n/v. : Denies dysuria or gross hematuria. No symptoms of bladder outlet obstruction. Endo: Denies hot flashes. Denies polyuria and polydipsia. Denies heat and cold intolerance. Musculoskeletal: See above. Derm: Denies rash. Denies jaundice and diffuse pruritis. Heme: Denies unusual bleeding and unexplained bruising. Psych: Normal mood. PHYSICAL EXAM: Vitals: Blood pressure 123/70, pulse (!) 54, temperature 36.9 ?C (98.5 ?F), temperature source Temporal Artery, weight 100 kg (220 lb 8 oz). Well-appearing and in no acute distress. EYES: Sclerae are anicteric bilaterally. NECK: Supple. No enlargement of thyroid. LYMPHATIC: There is no palpable cervical, supraclavicular, axillary or inguinal adenopathy. RESPIRATORY: Inspiratory breath sounds are of normal intensity in all [place]. No rales, wheezes or rhonchi. Expiratory phase is normal. CARDIOVASCULAR: Rhythm is regular. Normal intensity S1/S2. There is no gallop or murmur. ABDOMEN: The abdomen is nondistended. No organomegaly. No tenderness. Extremities: No swelling or edema. SKIN: No jaundice or rash. No petechiae. NEUROLOGIC: open cut examiner II-XII are grossly intact. No focal motor weakness. DTRs are symmetric and normal. MUSCULOSKELETAL: No joint swelling or tenderness. No muscle wasting. 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 -Pathologic staging previously completed in problem list. -Again reviewed the CAPOX regimen with the patient and his in detail. Due to lower counts, I advised we start with 1500 mg, i.e. 3 tablets of capecitabine twice a day for the first cycle. -Plan 3 months of therapy which will be 4 cycles of treatment. Plan: -Chemotherapy teaching for oxaliplatin. -Begin therapy next week. Esteban Ramos DO CNOVSP Observed: 04/20/2018 Status: COMPLETED Source: [place] 11:[address] [facility] REPOSITORY Visit (SP) Office (NIMA) MYRNA JORGENSEN ([id number]) 1950 M Date Time Provider Department 04/20/18 11:00 AM ESTEBAN RAMOS During your visit today, we recorded the following information about you: Temperature Pulse Blood pressure Weight 98.5 degrees 54/minute 123/70 100 kg Meryl Amaral LPN 04/20/2018 11:37 AM Signed Est patient. Discuss recent labs. Meryl aRmos DO 04/20/2018 12:07 PM Signed Diagnosis: 1) Stage IIIA colon cancer. HPI: The patient is a 68 yo male HTN and CAD (SC 2017; 2 stents RCA). Patient was on ASA and Plavix. Had episode rectal bleeding without previous bleeding. Went to ED where bleeding continued. Admitted. MICROSCOPIC DIAGNOSIS A. Right colon, hemicolectomy: Invasive adenocarcinoma. See complete cancer checklist below. B. Soft tissue of umbilical region, excision: Fragment of fibrofatty tissue with mild fibrosis consistent with hernia sac. No evidence of malignancy. COMMENT COLON CANCER SUMMARY: Specimen ? right colon Procedure ? right hemicolectomy Tumor site ? right colon Tumor size ? 2.5 x 2 x 0.5 cm Macroscopic tumor perforation ? not identified Histologic type - adenocarcinoma Histologic grade ? low-grade (moderately differentiated) Microscopic tumor extension ? tumor invades through the muscularis propria to the subserosal adipose tissue. Tumor is located 3 cm from its closest (distal) mucosal margin of excision. Margins: Proximal margin ? uninvolved by invasive carcinoma. Distal margin - uninvolved by invasive carcinoma. Circumferential or mesenteric margin - uninvolved by invasive carcinoma. Treatment effect - unknown Lymph-Vascular invasion ? not identified. Perineural invasion ? not identified Tumor deposits - not identified Lymph nodes: Number of lymph nodes examined - 39 Number of lymph nodes involved - 1 Additional pathologic findings ? largest polyp close to ileocecal valve with focal high-grade dysplasia. Two smaller polyps ? tubular adenoma Appendix ? fibrous obliteration of distal appendix and focal hyperplastic mucosal change. Ancillary studies: Microsatellite instability - Negative (no loss of mismatch protein; no microsatellite instability detected). Immunohistochemistry studies for mismatch repair proteins: MLH1 - Intact nuclear positivity, tumor cells MSH2 - Intact nuclear positivity, tumor cells MSH6 - Intact nuclear positivity, tumor cells PMS2 - Intact nuclear positivity, tumor cells PATHOLOGIC STAGE: pT3 N1a Mx Presents for ongoing oncologic management. Interim history: Was seen by cardiology. Was told okay to stay off Plavix. Continuing ASA daily. He's not had any chest pain/pressure or tightness. No palpitation. No shortness of breath at rest or with exertion. No lower extremity swelling or edema. Still somewhat constipated, but relieved with Miralax. Appetite good. No nausea. He's not having any abdominal pain, bloating or distention. No signs of GI bleeding including melena and hematochezia. No episodes of jaundice. 3 different areas of back pain he had at presentation here including right-sided sciatica were significantly improved after taking several days of muscle relaxer. PMH, medications and allergies personally reviewed by me today. Any changes documented in appropriate section. ROS: Constitutional: Denies episodes of fever and night sweats. Neuro: Denies LEWIS, vertigo, dizziness and imbalance. Denies symptoms of neuropathy. HEENT: No recent change in voice, vision or hearing. Resp: Denies cough, wheeze and hemoptysis. CVS: Denies PND, orthopnea. GI: Denies dysgeusia. Denies symptoms of stomatitis. Denies dysphagia and odynophagia. Denies reflux (on mcc Aciphex) , n/v. : Denies dysuria or gross hematuria. No symptoms of bladder outlet obstruction. Endo: Denies hot flashes. Denies polyuria and polydipsia. Denies heat and cold intolerance. Musculoskeletal: See above. Derm: Denies rash. Denies jaundice and diffuse pruritis. Heme: Denies unusual bleeding and unexplained bruising. Psych: Normal mood. PHYSICAL EXAM: Vitals: Blood pressure 123/70, pulse (!) 54, temperature 36.9 ?C (98.5 ?F), temperature source Temporal Artery, weight 100 kg (220 lb 8 oz). Well-appearing and in no acute distress. EYES: Sclerae are anicteric bilaterally. NECK: Supple. No enlargement of thyroid. LYMPHATIC: There is no palpable cervical, supraclavicular, axillary or inguinal adenopathy. RESPIRATORY: Inspiratory breath sounds are of normal intensity in all [place]. No rales, wheezes or rhonchi. Expiratory phase is normal. CARDIOVASCULAR: Rhythm is regular. Normal intensity S1/S2. There is no gallop or murmur. ABDOMEN: The abdomen is nondistended. No organomegaly. No tenderness. Extremities: No swelling or edema. SKIN: No jaundice or rash. No petechiae. NEUROLOGIC: open cut examiner II-XII are grossly intact. No focal motor weakness. DTRs are symmetric and normal. MUSCULOSKELETAL: No joint swelling or tenderness. No muscle wasting. 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 -Pathologic staging previously completed in problem list. -Again reviewed the CAPOX regimen with the patient and his in detail. Due to lower counts, I advised we start with 1500 mg, i.e. 3 tablets of capecitabine twice a day for the first cycle. -Plan 3 months of therapy which will be 4 cycles of treatment. Plan: -Chemotherapy teaching for oxaliplatin. -Begin therapy next week. Esteban Ramos DO Referring Provider: CHRIS FERREIRA [[id number]] Allergies As of Date: 04/20/2018 Noted Allergy Reaction PRILOSEC (OMEPRAZOLE) 09/20/2005 Date Reviewed: 04/20/2018 Reviewed by: Meryl Amaral LPN - Fully Assessed Reason for Visit: Established Patient [175] Primary Visit Diagnosis:Cancer of cecum (HCC) [C18.0] Other Visit Diagnoses:Metastatic cancer to intra-abdominal lymph nodes (HCC) [C77.2] Iron deficiency anemia due to chronic blood loss [D50.0] Order(s):IRON + TIBC [SQIRON] Order #: [id number] FUTURE FERRITIN BLD [SQFERR] Order #: [id number] FUTURE Follow-up and Disposition History Recorded Prescriptions as of 04/20/2018 Sig: GLUCOSAMINE [id number]* Take by mouth. TIZANIDINE 4 MG CAPSULE Take 1 capsule by mouth three* TRIAMCINOLONE ACETONIDE 55 MC* Use 2 Sprays in the nose once* ASPIRIN 81 MG TABLET,DELAYED * Take 81 mg by mouth once curtis* ATORVASTATIN 80 MG TABLET Take 80 mg by mouth once curtis* ISOSORBIDE MONONITRATE ER 30 * Take 30 mg by mouth once curtis* LISINOPRIL 20 MG TABLET Take 20 mg by mouth once curtis* METOPROLOL TARTRATE 25 MG TAB* Take 25 mg by mouth twice cely* MIRALAX ORAL Take 1 scoop by mouth once da* TAMSULOSIN 0.4 MG CAPSULE Take 1 capsule by mouth daily* RABEPRAZOLE 20 MG TABLET,MIA* Take 1 tablet by mouth once d* Patient taking differently: Take 20 mg by mouth twice cely* CAPECITABINE 500 MG TABLET Take 4 tablets by mouth twice* Medication notes this encounter TIZANIDINE 4 MG CAPSULE >> Esteban Ramos DO 04/20/2018 12:07 PM >> ESTEBAN RAMOS DO MonApr 20, 2018 12:07 PM Not currently using. ATORVASTATIN 80 MG TABLET >> Meryl Amaral LPN 04/20/2018 10:54 AM >> MERYL AMARAL LPN MonApr 20, 2018 10:54 AM resumed METOPROLOL TARTRATE 25 MG TABLET >> Meryl Amaral LPN 04/20/2018 10:55 AM >> MERYL AMARAL LPN MonApr 20, 2018 10:55 AM resumed CAPECITABINE 500 MG TABLET >> Meryl Amaral COMFORT 04/20/2018 10:54 AM >> MERYL AMARAL LPN MonApr 20, 2018 10:54 AM Due to receive 04/24/2018 Problem List As Of Date 04/20/2018 Noted Resolved CALCULUS OF KIDNEY [N20.0] INVALID FOR* BENIGN HYPERTENSION [I10] INVALID FOR* HYPERLIPIDEMIA NEC/NOS [E78.5] INVALID FOR* ESOPHAGEAL REFLUX [K21.9] INVALID FOR* Vasomotor rhinitis [J30.0] INVALID FOR* BPH (benign prostatic hyperplasia) [N40.0] INVALID FOR* Cancer of cecum (HCC) [C18.0] INVALID FOR* Metastatic cancer to intra-abdominal lymph node*INVALID FOR* Visit Notes: >> Meryl Amaral COMFROT MonApr 20, 2018 10:56 AM Status: Signed Est patient. Discuss recent labs. Meryl Marina MOYER Encounter Status:Closed by ESTEBAN RAMOS DO on 04/20/18 CARDIOLOGY VISIT Observed: 04/18/2018 Status: F Source: [place] RE[place] 5:23 PM [facility] REPOSITORY [facility] [address] [place] [address] OFFICE VISIT Date of Service: 04/18/18 MR#: [id number] Acct: [id number] Name: MYRNA JORGENSEN Jr. Rep #: [id number] : 1950 Provider: Esteban Grigsby MD Age/Sex: 68/M Location: [facility] Status: Signed HPI HPI Details: MYRNA JORGENSEN, is a 68 M who presents to the office today for for outpatient cardiovascular follow-up. As you recall he was evaluated at [facility] in cardiovascular consultation on 08/28/2017. That was for his history of CAD status post previous PCI superimposed on hyperlipidemia and hypertension in the midst of an underlying GI bleed secondary to concerns of colon carcinoma requiring PRBC transfusions and future colon surgery. At that time he did receive PRBCs. His medications with respect to his antiplatelet therapy was interrupted. He has subsequently gone on to receive colon carcinoma surgery. He is now pending initiation of chemotherapy. He states overall he feels much better. He denies any obvious ongoing evidence of angina pectoris at rest or with exertion. There is been no evidence of CHF or pulmonary edema. There has been no recurrent near syncope or syncope. As you recall in the past he did have episodes, during his hospitalization, during his anemia, etc. that appeared to be compatible with gastrointestinal related noxious stimuli leading to a vasovagal event. He states he is due for a follow-up H AND H later today by his oncologist. Intake Vital Signs04/18/18 Height 5 ft 10 in 04/18/18 Weight: 219 lb 04/18/18 Body Mass Index (BMI) 31.4 04/18/18 Blood Pressure 118/72 Intake Visit Reasons: GI Bleed/Ref. ED Allergies omeprazole [From Prilosec] Adverse Reaction (Verified 04/18/18 10:59) lowers WBCs Medications Psyllium [Metamucil] 1 packet PO DAILY 05/13/17 [History Confirmed 04/18/18] Rabeprazole Sodium [Aciphex] 20 mg PO BID 05/13/17 [History Confirmed 04/18/18] Tamsulosin HCl [Flomax] 0.4 mg PO QHS 05/13/17 [History Confirmed 04/18/18] atorvastatin 80 mg tablet 80 mg PO QHS 08/24/17 [History Confirmed 04/18/18] Glucosamine/MSM/Chondroitin A [Glucosamine Chondroit MSM Tab] 1 ea PO DAILY 03/14/18 [History Confirmed 04/18/18] Aspirin E.C. [Ecotrin] 81 mg PO DAILY@0800 03/19/18 [History Confirmed 04/18/18] Isosorbide Mononitrate [Imdur] 30 mg PO DAILY 03/19/18 [History Confirmed 04/18/18] Lisinopril [Zestril] 20 mg PO DAILY 03/19/18 [History Confirmed 04/18/18] Metoprolol Tartrate [Lopressor (beta mandeep)] 25 mg PO BID 03/19/18 [History Confirmed 04/18/18] Ibuprofen [Motrin] 400 mg PO Q4H PRN PRN tab 03/23/18 [Rx Confirmed 04/18/18] tizanidine 4 mg tablet 4 mg PO TID PRN 04/18/18 [History Confirmed 04/18/18] triamcinolone acetonide 55 mcg nasal spray aerosol 2 spray INTRANASAL QDAY 04/18/18 [History Confirmed 04/18/18] PFSH Medical History Presence of stent in coronary artery (Chronic 05/15/17) Hyperlipemia, mixed (Chronic) Atherosclerotic heart disease of saxman coronary artery without angina pectoris (Chronic) Chest pain (Acute) NSTEMI (non-ST elevated myocardial infarction) (Acute) HTN (hypertension) (Chronic) Peptic ulcer disease (Chronic) BPH (benign prostatic hyperplasia) (Chronic) Cancer of transverse colon (Chronic) GERD (gastroesophageal reflux disease) (Chronic) Hyperglycemia (Chronic) Surgical History H/O removal of cyst (Chronic) History of left heart catheterization (Chronic) History of rectal surgery (Chronic) Kidney stone removal (Chronic) Postsurgical percutaneous transluminal coronary angioplasty (PTCA) status (Chronic 05/15/17) Right eye surgery (Chronic) S/P right hemicolectomy (Resolved) History of percutaneous coronary intervention (Inactive) Family History Father CAD (coronary artery disease) Mother CAD (coronary artery disease) Social History Smoking Status: Never smoker ROS Const Const: Negative for fatigue, weakness, weight gain, weight loss, frequent falls or excessive sweating Eyes Eyes: Negative for change in vision, blurry vision or transient loss of vision ENT ENT: Negative for dizziness or balance problems Cardio Chest Pain: No Palpitations: No Edema: None Muscle aches with walking: None Resp Respiratory: Negative for SOB with activity or SOB at rest GI GI: Negative vomiting or vomiting blood/hematemesis : Negative for hematuria Musc Musc: Negative for balance problems, muscle aches/ myalgia, muscle weakness or joint pain Skin Skin: Negative non-healing lesions or rash Neuro Neuro: Negative for weakness, blurry vision, dizziness, lightheadedness, frequent falls or orthostatic symptoms [place] Hematologic/Lymphatic: Negative for easy bleeding Endo Endo: Negative for fatigue or excessive sweating Psych Psych: Negative for anxiety or depression Allergy Allergy/Immunology: Negative for hives, Negative for rash Cardiology Exam Const Appearance: cooperative, healthy appearing, comfortable, no acute distress, well developed and well groomed Nutritional Appearance: overweight Orientation: alert, awake and oriented x3 Head Head: normal to inspection, normocephalic and atraumatic Ears: hearing grossly normal bilaterally Nose: external nose normal Face and Sinus: face symmetric Mouth: oral mucosae normal Teeth and gingiva: fair dentition Eyes Eyelids: eyelids normal Conjunctivae: conjunctivae normal Pupils: PERRL EOM: EOM intact bilaterally Neck Neck: normal visual inspection and full ROM Carotids: normal carotid upstroke Chest Chest inspection: normal inspection of the chest and symmetric chest movement Auscultation: Bilateral: Clear to Auscultation Cardio Palpation: normal PMI Rhythm: regular rhythm Heart sounds: S1 normal and S2 normal GI GI: normal to inspection, soft, no hepatosplenomegaly and bowel sounds present Neuro General: alert, awake, oriented x3, gait normal, moves all extremities, no focal sensory deficit and no focal motor deficits Skin Skin: no rashes or lesions noted Extremities Pulses: Normal: Right Radial Pulse, Left Radial Pulse Psych Psychological: normal affect Supplemental Info He had a transthoracic echocardiogram performed on 05/13/2017 Interpretation Summary The study was technically difficult. Contrast injection was performed. Segmental dysfunction with preserved ejection fraction (see wall motion). The estimated ejection fraction is 60 %. Trivial mitral valve insufficiency. Trivial tricuspid valve insufficiency. Mild focal aortic valve calcification. Unable to estimate RV systolic pressure/pulmonary artery pressure due to technically difficult study. Transmitral diastolic flow velocities suggest diastolic dysfunction (pseudonormal pattern). He had a treadmill stress test performed on 05/30/2017. 1. Technically adequate (percent predicted maximal heart rate greater than 85%) exercise tolerance test 2. The peak exercise ECG demonstrated somatic/motion artifact with beat to beat nonspecific ST segment variability with resolution towards baseline beginning by 1 minute in recovery with subsequent notation of approximately 0.5 - 1.[address] segment depression in leads I, II, III, aVF, and V4 through V6 during recovery (at approximately 5 minutes into recovery) with gradual resolution towards baseline at approximately 10 minutes into recovery. 3. Rare PVC during exercise and recovery He had a diagnostic cardiac catheterization performed at [facility] on 05/15/2017. DOMINANCE: Right Dominant LEFT HEART ASSESSMENT LV evaluation: not performed: please see echocardiogram report LEFT MAIN: Angiographically normal LEFT ANTERIOR DESCENDING ARTERY: PROX LAD: Eccentric: 25 % Stenosis MID LAD: Eccentric: 25 % Stenosis DIAGONAL 2: Proximal - Long: Diffuse: 85 % Stenosis (small caliber bifurcating vassel) DIAGONAL 3: Proximal - is occluded CIRCUMFLEX ARTERY: MID CIRC: Eccentric: 10-25 % Stenosis OM 2: Proximal - 50-75 % Stenosis (small caliber vessel) RIGHT CORONARY ARTERY: Mild luminal irregularities PROX RCA: Eccentric: 99 % Stenosis COLLATERAL FLOW: Collateral flow from Left to Right He underwent PCI at [facility] on 05/15/2017. This included a JAYLIN to the RCA Assessment AND Plan 1. Atherosclerosis of saxman coronary artery of saxman heart without angina pectoris I25.10 PTCA/JAYLIN of Prox RCA 05/15/17 Plan At the present time he appears to be doing well. He will continue risk factor modification and medical management. 2. Presence of stent in coronary artery Z95.5 PTCA/JAYLIN of Prox RCA 05/15/17 Plan His antiplatelet therapy had to be interrupted based upon his anemia secondary to GI bleed secondary to his colon carcinoma. He has remained off of it. He appears to be doing well. As he is now approximately 1 year out from his PCI he will remain off of his antiplatelet therapy as he proceeds with further gastrointestinal evaluation care. 3. Hyperlipidemia, unspecified hyperlipidemia type E78.5 Plan He will continue his lipid-lowering therapy. His lipids will be followed over time peer 4. Essential hypertension I10 Plan His blood pressure appears to be recently well controlled. He will continue medical management and follow-up. Plan Detail Other Medications Discontinued: fluticasone 50 mcg/actuation Discontinued Reason: Pt no longer tak2 sprays NASAL QHS ing Additional Comments Thank you for allowing me to participate in the care of your patient. Please don't hesitate to call if any issues arise. This note was generated using a voice recognition system and there may be incorrect words, spelling or punctuation that were not noted when reviewing the office note prior to saving. Follow Up 6 Months (PFM) Coding Level of Care Code Off vis,est,level 3 Diagnoses Atherosclerosis of saxman coronary artery of saxman heart without angina pectoris I25.10 [place] vs. transplanted heart: saxman heart Presence of stent in coronary artery Z95.5 Hyperlipidemia, unspecified hyperlipidemia type E78.5 Hyperlipidemia type: unspecified Essential hypertension I10 Hypertension type: essential hypertension Coding Level of Care Code Off vis,est,level 3 Diagnoses Atherosclerosis of saxman coronary artery of sax[place] heart without angina pectoris I25.10 [place] vs. transplanted heart: saxman heart Presence of stent in coronary artery Z95.5 Hyperlipidemia, unspecified hyperlipidemia type E78.5 Hyperlipidemia type: unspecified Essential hypertension I10 Hypertension type: essential hypertension 04/18/18 1723 <Electronically signed by Esteban Grigsby MD> Date Esteban Grigsby MD Cosigner Signature: Date (if applicable) CC: Esteban Ramos DO; Chris Ferreira MD; Shlomo Dudley DO CBC W/DIFF, AUTOMATED Collected: 04/18/2018 Status: F Source: [place] 11:52 AM [facility] REPOSITORY TYPE CODE TESTS RESULT OUT OF RANGE REFERENCE UNITS LAB L100.1000 4.4-11.0 K/mm3 Low WBC 4.3 LAB L100.1200 4.6-6.2 M/mm3 Low RBC 3.59 LAB L100.1300 13.0-16.5 g/dl Low HGB 9.8 LAB L100.1400 40-54 % Low HCT 30.5 LAB L100.1500 80-94 fL Normal MCV 85.0 LAB L100.1600 27.0-32.0 pg Normal MCH 27.3 LAB L100.1700 32-36 g/gl Normal MCHC 32.1 LAB L100.1810 11.6-14.6 % Normal RDW CV 12.7 LAB L100.1820 35.1-43.9 fl Normal RDW SD 37.7 LAB L100.1900 150-450 K/mm3 Normal PLT 189 LAB L100.2000 6.2-12.0 fl Normal MPV 9.6 LAB L100.2100 47-70 % Normal NEUT% 63.0 LAB L100.2200 19-41 % Normal LY% 22.8 LAB L100.2300 0-10 % High MONO% 11.6 LAB L100.2400 0-5 % Normal EO% 2.1 LAB L100.2500 0-1 % Normal BASO% 0.5 LAB L100.2550 0.0-0.9 % Normal IM GRAN % 0.200 Result Comment: IG% - Immature Granulocytes (promyelocytes, myelocytes and metamyelocytes) > 1% indicates that a LEFT SHIFT is Present. LAB L100.2620 2.0-7.7 X10 3/uL Normal Absolute Neut 2.7 LAB L100.2720 0.83-4.51 X10 3/ul Normal Absolute Lymph 0.98 Performed By: #### L100.0100 #### [facility] [address], [address] COMPREHENSIVE METABOLIC Collected: 04/18/2018 Status: F Source: DANISHA RODRIGUEZ 11:52 AM [facility] REPOSITORY TYPE CODE TESTS RESULT OUT OF RANGE REFERENCE UNITS LAB L501.0100 74-106 mg/dL Normal GLU 76 Result Comment: Please note revised GLUCOSE reference range effective 2017. LAB L501.1000 7-18 mg/dL Normal BUN 12 LAB L501.1100 0.70-1.30 mg/dL Normal CREAT,SERUM 1.09 Result Comment: The validity of the calculated GFR AND GFRAA in patients over 70 years has not been determined. Clinical correlation is essential. LAB L501.1110 >60 mL/min Normal EST GFR 72 Result Comment: Non- GFR Calc LAB L501.1115 >60 mL/min Normal EST GFR - AA 87 Result Comment: GFR Calc LAB L501.1300 10-20 RATIO Normal BUN/CRE 11.0 LAB L501.1500 6.4-8.2 g/dL T Normal PROT 7.4 LAB L501.1800 3.2-5.0 g/dL Normal ALB 3.9 LAB L501.1950 2.2-4.2 g/dL Normal GLOB 3.5 LAB L501.2000 0.9-2.4 RATIO Normal A/G 1.1 LAB L501.2200 8.5-10.1 mg/dL CA Normal 8.7 LAB L501.4100 15-37 U/L Normal AST 16 LAB L501.4305 45-117 U/L Normal ALK P 78 LAB L501.4405 16-61 U/L Normal ALT 28 LAB L501.4600 0.20-1.00 mg/dL T Normal BILI 0.40 LAB L501.5300 136-145 mmol/L NA Normal 140 LAB L501.5600 3.5-5.1 mmol/L K Normal 3.5 LAB L501.5900 98-107 mmol/L CL Normal 106 LAB L501.6100 21.0-32.0 mmol/L Normal CO2 27.0 LAB L501.6200 5-15 Normal GAP 7 Performed By: #### L500.4050 #### [facility] [place], [address] PROGRESS Observed: 04/17/2018 Status: COMPLETED Source: [place] 8:04 PM [facility] REPOSIT[facility] HNO ID: [id number] Author: Chris Ferreira Service: (none) Author Type: Physician Type: Progress Notes Filed: 04/17/2018 8:06 PM Note Text: FOLLOW UP VISIT - POST OP COLON CANCER NAME: Myrna Jorgensen [facility] NO.: [id number] DATE OF SERVICE: April 17, 2018 : 1950 REFERRING PHYSICIAN: Shlomo Dudley DO Myrna is a patient I am following for a mid transverse colon colon cancer. The patient is a 68 year old male with a complaint of rectal bleeding. The patient has a history of coronary artery disease. He had 2 stents placed last April. He is chronically on Plavix and aspirin. The patient presented to [facility] last week with rectal bleeding. He was admitted to the medicine service. A CT scan of the abdomen and pelvis was obtained which demonstrated no specific abnormalities in the liver. There was felt to be thickening in the mid transverse colon. My partner, Lorenza Cueva was consulted. She performed upper and lower endoscopy on March 15, 2018. Upper endoscopy demonstrated very mild antritis and benign gastric fundic polyps. Colonoscopy was performed and at the mid transverse colon a fungating mass was identified. Multiple biopsies were obtained. Luis ink was injected for identification and a clip was placed to better localize this abnormality. Postprocedure KUB was obtained which demonstrated the clip just to the right of the midline vertebral structures. Pathology returned this morning. Pathology demonstrated: MICROSCOPIC DIAGNOSIS A. Antral biopsy: Mild gastritis. B. Gastric polyp, biopsy: Fundic gland polyp. C. Transverse colon mass, biopsy: Invasive moderately differentiated adenocarcinoma. See comment. The patient was seen in the hospital by his bladder tier, Dr. Esteban Grigsby. Dr. Moodispaw felt that overall, the patient was a reasonable risk for surgical intervention locally. He was comfortable holding both his aspirin and his plavix. The patient's last dose of Plavix was Monday. PAST MEDICAL HISTORY Diagnosis Date - BPH (benign prostatic hyperplasia) 09/02/2010 - Colon cancer (HCC) 03/2018 - Esophageal reflux 02/02/2008 - Heart attack (HCC) 04/2017 - Hernia of other specified sites of abdominal cavity without mention of obstruction or gangrene rectal - Renal calculus - Vasomotor rhinitis 09/02/2010 PAST SURGICAL HISTORY Procedure Laterality Date - PAST SURGICAL HISTORY OF Right 1979 detatched retina - PAST SURGICAL HISTORY OF removal of kidney stone - PAST SURGICAL HISTORY OF 1979 rectal surgery? - PRQ CARDIAC STENT W/ANGIO 1 VSL 04/2017 Current Outpatient Prescriptions: docusate sodium (COLACE) 100 mg capsule Take 100 mg by mouth twice daily. Disp: Rfl: triamcinolone acetonide (NASACORT AQ) 55 mcg nasal inhaler Use 2 Sprays in the nose once daily. Disp: Rfl: aspirin, enteric coated (ECOTRIN LOW STRENGTH) 81 mg EC tablet Take 81 mg by mouth once daily. Disp: Rfl: atorvastatin (LIPITOR) 80 mg tablet Take 80 mg by mouth once daily. Disp: Rfl: isosorbide mononitrate ER (IMDUR) 30 mg 24 hr tablet Take 30 mg by mouth once daily. Disp: Rfl: lisinopril (ZESTRIL) 20 mg tablet Take 20 mg by mouth once daily. Disp: Rfl: metoprolol tartrate, short acting, (LOPRESSOR) 25 mg tablet Take 25 mg by mouth twice daily. Disp: Rfl: polyethylene glycol 3350 (MIRALAX ORAL) Take 1 scoop by mouth once daily. Disp: Rfl: OTC NUTRITIONAL SUPPLEMENT once daily. Glucosamine/chondroitin 1500/1200mg Disp: Rfl: tamsulosin ER (FLOMAX) 0.4 mg cp24 Take 1 capsule by mouth daily at bedtime. Disp: 90 capsule Rfl: 0 RABEprazole (ACIPHEX) 20 mg tablet Take 1 tablet by mouth once daily. (Patient taking differently: Take 20 mg by mouth twice daily. ) Disp: 90 tablet Rfl: 0 Miralax / Gatorade Prep Miralax 238 gm bottle, (2) 32 oz bottles of Gatorade, AND 4 Dulcolax 5 mg tabs- as directed per instructions Disp: Rfl: neomycin 500 mg tablet Take 2 tablets by mouth four times daily. 2 TABLETS AT 6, 8 ,AND 10 PM Disp: 6 tablet Rfl: 0 metroNIDAZOLE (FLAGYL) 500 mg tablet Take 1 tablet by mouth three times daily. 2 TABLETS AT 6, 8, AND 10 PM Disp: 6 tablet Rfl: 0 Hydrochlorothiazide 12.5 mg capsule Take 1 capsule by mouth once daily. (Patient not taking: Reported on 03/19/2018 ) Disp: 90 capsule Rfl: 0 mometasone (NASONEX) 50 mcg/actuation nasal spray 2 puffs in each nostrils daily (Patient not taking: Reported on 03/19/2018 ) Disp: 3 Bottle Rfl: 3 methylPREDNISolone (MEDROL, MELODY,) 4 mg tablet Follow dosing instructions, take by mouth with food. (Patient not taking: Reported on 03/19/2018 ) Disp: 1 Package Rfl: 0 No current facility-administered medications for this visit. Last Plavix dose was Monday evening I performed a laparoscopic extended right hemicolectomy on March 20, 2018. The patient did well and was discharged home on March 23. He did note some dizziness the day after discharge, but we held his beta mandeep and he has been doing well since. The pathology demonstrated: MICROSCOPIC DIAGNOSIS A. Right colon, hemicolectomy: Invasive adenocarcinoma. See complete cancer checklist below. B. Soft tissue of umbilical region, excision: Fragment of fibrofatty tissue with mild fibrosis consistent with hernia sac. No evidence of malignancy. AM:claudio 03/26/18 COMMENT COLON CANCER SUMMARY: Specimen ? right colon Procedure ? right hemicolectomy Tumor site ? right colon Tumor size ? 2.5 x 2 x 0.5 cm Macroscopic tumor perforation ? not identified Histologic type - adenocarcinoma Histologic grade ? low-grade (moderately differentiated) Microscopic tumor extension ? tumor invades through the muscularis propria to the subserosal adipose tissue. Tumor is located 3 cm from its closest (distal) mucosal margin of excision. Margins: Proximal margin ? uninvolved by invasive carcinoma. Distal margin - uninvolved by invasive carcinoma. Circumferential or mesenteric margin - uninvolved by invasive carcinoma. Treatment effect - unknown Lymph-Vascular invasion ? not identified. Perineural invasion ? not identified Tumor deposits - not identified Lymph nodes: Number of lymph nodes examined - 39 Number of lymph nodes involved - 1 Additional pathologic findings ? largest polyp close to ileocecal valve with focal high-grade dysplasia. Two smaller polyps ? tubular adenoma Appendix ? fibrous obliteration of distal appendix and focal hyperplastic mucosal change. Ancillary studies: Microsatellite instability - Negative (no loss of mismatch protein; no microsatellite instability detected). Immunohistochemistry studies for mismatch repair proteins: MLH1 - Intact nuclear positivity, tumor cells MSH2 - Intact nuclear positivity, tumor cells MSH6 - Intact nuclear positivity, tumor cells PMS2 - Intact nuclear positivity, tumor cells PATHOLOGIC STAGE: pT3 N1a Mx Myrna notes overall he is doing quite well. Post operative pain has been well controlled. The patient denies nausea. The patient`s appetite has been good. VITALS: Blood pressure 152/84, pulse 64, weight 100.1 kg (220 lb 9.6 oz). On examination, the abdominal skin incisions were clean, dry, and intact. The bowel sounds were normal, the abdomen was soft. Assessment IMPRESSION: Status Post laparoscopic right hemicolectomy for colon cancer. PLAN: Myrna may return to regular activities as tolerated with the exception of no heavy lifting. .he may shower and bathe. The patient may now drive as long as he is no longer taking narcotic pain medication. If he notes any difficulties, he should contact me immediately. He was seen by Dr. Esteban Ramos. He is planning to start oral agents for his chemotherapy Diagnoses: (C18.4) Malignant neoplasm of transverse colon (HCC) (primary encounter diagnosis) Return to Clinic: The patient is instructed to follow- up with me in 3 months Chris Ferreira MD CNOV Observed: 04/17/2018 Status: COMPLETED Source: [place] 1:[address] [facility] REPOSITORY Office Visit (GENSWS) MYRNA JORGENSEN ([id number]) 1950 M Date Time Provider Department 04/17/18 1:50 PM CHRIS FERREIRA During your visit today, we recorded the following information about you: Pulse Blood pressure Weight 64/minute 152/84 100.1 kg Chris Ferreira MD 04/17/2018 8:06 PM Signed FOLLOW UP VISIT - POST OP COLON CANCER NAME: Myrna Jorgensen CLINIC NO.: [id number] DATE OF SERVICE: April 17, 2018 : 1950 REFERRING PHYSICIAN: Shlomo Dudley DO Myrna is a patient I am following for a mid transverse colon colon cancer. The patient is a 68 year old male with a complaint of rectal bleeding. The patient has a history of coronary artery disease. He had 2 stents placed last April. He is chronically on Plavix and aspirin. The patient presented to [facility] last week with rectal bleeding. He was admitted to the medicine service. A CT scan of the abdomen and pelvis was obtained which demonstrated no specific abnormalities in the liver. There was felt to be thickening in the mid transverse colon. My partner, Lorenza Cueva was consulted. She performed upper and lower endoscopy on March 15, 2018. Upper endoscopy demonstrated very mild antritis and benign gastric fundic polyps. Colonoscopy was performed and at the mid transverse colon a fungating mass was identified. Multiple biopsies were obtained. Luis ink was injected for identification and a clip was placed to better localize this abnormality. Postprocedure KUB was obtained which demonstrated the clip just to the right of the midline vertebral structures. Pathology returned this morning. Pathology demonstrated: MICROSCOPIC DIAGNOSIS A. Antral biopsy: Mild gastritis. B. Gastric polyp, biopsy: Fundic gland polyp. C. Transverse colon mass, biopsy: Invasive moderately differentiated adenocarcinoma. See comment. The patient was seen in the hospital by his bladder tier, Dr. Esteban Grigsby. Dr. Grigsby felt that overall, the patient was a reasonable risk for surgical intervention locally. He was comfortable holding both his aspirin and his plavix. The patient's last dose of Plavix was Monday. PAST MEDICAL HISTORY Diagnosis Date - BPH (benign prostatic hyperplasia) 09/02/2010 - Colon cancer (HCC) 03/2018 - Esophageal reflux 02/02/2008 - Heart attack (HCC) 04/2017 - Hernia of other specified sites of abdominal cavity without mention of obstruction or gangrene rectal - Renal calculus - Vasomotor rhinitis 09/02/2010 PAST SURGICAL HISTORY Procedure Laterality Date - PAST SURGICAL HISTORY OF Right 1980 detatched retina - PAST SURGICAL HISTORY OF removal of kidney stone - PAST SURGICAL HISTORY OF 1979 rectal surgery? - PRQ CARDIAC STENT W/ANGIO 1 VSL 04/2017 Current Outpatient Prescriptions: docusate sodium (COLACE) 100 mg capsule Take 100 mg by mouth twice daily. Disp: Rfl: triamcinolone acetonide (NASACORT AQ) 55 mcg nasal inhaler Use 2 Sprays in the nose once daily. Disp: Rfl: aspirin, enteric coated (ECOTRIN LOW STRENGTH) 81 mg EC tablet Take 81 mg by mouth once daily. Disp: Rfl: atorvastatin (LIPITOR) 80 mg tablet Take 80 mg by mouth once daily. Disp: Rfl: isosorbide mononitrate ER (IMDUR) 30 mg 24 hr tablet Take 30 mg by mouth once daily. Disp: Rfl: lisinopril (ZESTRIL) 20 mg tablet Take 20 mg by mouth once daily. Disp: Rfl: metoprolol tartrate, short acting, (LOPRESSOR) 25 mg tablet Take 25 mg by mouth twice daily. Disp: Rfl: polyethylene glycol 3350 (MIRALAX ORAL) Take 1 scoop by mouth once daily. Disp: Rfl: OTC NUTRITIONAL SUPPLEMENT once daily. Glucosamine/chondroitin 1500/1200mg Disp: Rfl: tamsulosin ER (FLOMAX) 0.4 mg cp24 Take 1 capsule by mouth daily at bedtime. Disp: 90 capsule Rfl: 0 RABEprazole (ACIPHEX) 20 mg tablet Take 1 tablet by mouth once daily. (Patient taking differently: Take 20 mg by mouth twice daily. ) Disp: 90 tablet Rfl: 0 Miralax / Gatorade Prep Miralax 238 gm bottle, (2) 32 oz bottles of Gatorade, AND 4 Dulcolax 5 mg tabs- as directed per instructions Disp: Rfl: neomycin 500 mg tablet Take 2 tablets by mouth four times daily. 2 TABLETS AT 6, 8 ,AND 10 PM Disp: 6 tablet Rfl: 0 metroNIDAZOLE (FLAGYL) 500 mg tablet Take 1 tablet by mouth three times daily. 2 TABLETS AT 6, 8, AND 10 PM Disp: 6 tablet Rfl: 0 Hydrochlorothiazide 12.5 mg capsule Take 1 capsule by mouth once daily. (Patient not taking: Reported on 03/19/2018 ) Disp: 90 capsule Rfl: 0 mometasone (NASONEX) 50 mcg/actuation nasal spray 2 puffs in each nostrils daily (Patient not taking: Reported on 03/19/2018 ) Disp: 3 Bottle Rfl: 3 methylPREDNISolone (MEDROL, MELODY,) 4 mg tablet Follow dosing instructions, take by mouth with food. (Patient not taking: Reported on 03/19/2018 ) Disp: 1 Package Rfl: 0 No current facility-administered medications for this visit. Last Plavix dose was Monday evening I performed a laparoscopic extended right hemicolectomy on March 20, 2018. The patient did well and was discharged home on March 23. He did note some dizziness the day after discharge, but we held his beta mandeep and he has been doing well since. The pathology demonstrated: MICROSCOPIC DIAGNOSIS A. Right colon, hemicolectomy: Invasive adenocarcinoma. See complete cancer checklist below. B. Soft tissue of umbilical region, excision: Fragment of fibrofatty tissue with mild fibrosis consistent with hernia sac. No evidence of malignancy. AM:claudio 03/26/18 COMMENT COLON CANCER SUMMARY: Specimen ? right colon Procedure ? right hemicolectomy Tumor site ? right colon Tumor size ? 2.5 x 2 x 0.5 cm Macroscopic tumor perforation ? not identified Histologic type - adenocarcinoma Histologic grade ? low-grade (moderately differentiated) Microscopic tumor extension ? tumor invades through the muscularis propria to the subserosal adipose tissue. Tumor is located 3 cm from its closest (distal) mucosal margin of excision. Margins: Proximal margin ? uninvolved by invasive carcinoma. Distal margin - uninvolved by invasive carcinoma. Circumferential or mesenteric margin - uninvolved by invasive carcinoma. Treatment effect - unknown Lymph-Vascular invasion ? not identified. Perineural invasion ? not identified Tumor deposits - not identified Lymph nodes: Number of lymph nodes examined - 39 Number of lymph nodes involved - 1 Additional pathologic findings ? largest polyp close to ileocecal valve with focal high-grade dysplasia. Two smaller polyps ? tubular adenoma Appendix ? fibrous obliteration of distal appendix and focal hyperplastic mucosal change. Ancillary studies: Microsatellite instability - Negative (no loss of mismatch protein; no microsatellite instability detected). Immunohistochemistry studies for mismatch repair proteins: MLH1 - Intact nuclear positivity, tumor cells MSH2 - Intact nuclear positivity, tumor cells MSH6 - Intact nuclear positivity, tumor cells PMS2 - Intact nuclear positivity, tumor cells PATHOLOGIC STAGE: pT3 N1a Mx Reddy notes overall he is doing quite well. Post operative pain has been well controlled. The patient denies nausea. The patient`s appetite has been good. VITALS: Blood pressure 152/84, pulse 64, weight 100.1 kg (220 lb 9.6 oz). On examination, the abdominal skin incisions were clean, dry, and intact. The bowel sounds were normal, the abdomen was soft. Assessment IMPRESSION: Status Post laparoscopic right hemicolectomy for colon cancer. PLAN: Myrna may return to regular activities as tolerated with the exception of no heavy lifting. .he may shower and bathe. The patient may now drive as long as he is no longer taking narcotic pain medication. If he notes any difficulties, he should contact me immediately. He was seen by Dr. Esteban Ramos. He is planning to start oral agents for his chemotherapy Diagnoses: (C18.4) Malignant neoplasm of transverse colon (HCC) (primary encounter diagnosis) Return to Clinic: The patient is instructed to follow- up with me in 3 months Chris Ferreira MD Referring Provider: SHLOMO DUDLEY [[id number]] Allergies As of Date: 04/17/2018 Noted Allergy Reaction PRILOSEC (OMEPRAZOLE) 09/20/2005 Date Reviewed: 04/17/2018 Reviewed by: Chris Ferreira - Fully Assessed Reason for Visit: Post Op [174] Cmt: 3 wk colectomy Primary Visit Diagnosis:Malignant neoplasm of transverse colon (HCC) [C18.4] Prescriptions as of 04/17/2018 Sig: GLUCOSAMINE [id number]* Take by mouth. TIZANIDINE 4 MG CAPSULE Take 1 capsule by mouth three* TRIAMCINOLONE ACETONIDE 55 MC* Use 2 Sprays in the nose once* ASPIRIN 81 MG TABLET,DELAYED * Take 81 mg by mouth once curtis* ATORVASTATIN 80 MG TABLET Take 80 mg by mouth once curtis* ISOSORBIDE MONONITRATE ER 30 * Take 30 mg by mouth once curtis* LISINOPRIL 20 MG TABLET Take 20 mg by mouth once curtis* METOPROLOL TARTRATE 25 MG TAB* Take 25 mg by mouth twice cely* MIRALAX ORAL Take 1 scoop by mouth once da* TAMSULOSIN 0.4 MG CAPSULE Take 1 capsule by mouth daily* RABEPRAZOLE 20 MG TABLET,MIA* Take 1 tablet by mouth once d* Patient taking differently: Take 20 mg by mouth twice cely* CAPECITABINE 500 MG TABLET Take 4 tablets by mouth twice* HYDROCHLOROTHIAZIDE 12.5 MG C* Take 1 capsule by mouth once * Patient not taking: Reported on 03/19/2018 Problem List As Of Date 04/17/2018 Noted Resolved CALCULUS OF KIDNEY [N20.0] INVALID FOR* BENIGN HYPERTENSION [I10] INVALID FOR* HYPERLIPIDEMIA NEC/NOS [E78.5] INVALID FOR* ESOPHAGEAL REFLUX [K21.9] INVALID FOR* Vasomotor rhinitis [J30.0] INVALID FOR* BPH (benign prostatic hyperplasia) [N40.0] INVALID FOR* Cancer of cecum (HCC) [C18.0] INVALID FOR* 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 REPOSITORY HNO ID: [id number] Author: Sabina Saravia (Sw) Service: (none) Author Type: Director Dental Services Type: Progress Notes Filed: 04/12/2018 8:28 AM Note Text: SOCIAL WORK FOLLOW UP NOTE: [facility] Date of service: April 12, 2018 Myrna Jorgensen is being seen for a follow up social work visit. Today's visit includes: patient not present TOPICS ADDRESSED: Finances; assessment coordinator had Xeloda prescription sent electronically to [facility]. SINCERE faxed this confirmation, along with demographic information, insurance cards and PANF information to [facility]. PLAN: Continue follow up as needed F/U APPOINTMENT: WAQAS Leroy Observed: 04/12/2018 Status: COMPLETED Source: [place] 12:[address] [facility] REPOSITORY Social Work (NIMA) MYRNA JORGENSEN ([id number]) 1950 M Date Time Provider Department 04/12/18 MANJIT, SABINA HERRING (SW) During your visit today, we recorded the following information about you: WAQAS Fuchs 04/12/2018 8:28 AM Signed SOCIAL WORK FOLLOW UP NOTE: [facility] Date of service: April 12, 2018 Myrna Jorgensen is being seen for a follow up social work visit. Today's visit includes: patient not present TOPICS ADDRESSED: Finances; assessment coordinator had Xeloda prescription sent electronically to [facility]. SINCERE faxed this confirmation, along with demographic information, insurance cards and PANF information to [facility]. PLAN: Continue follow up as needed F/U APPOINTMENT: PRN WAQAS Fuchs Allergies As of Date: 04/12/2018 Noted Allergy Reaction PRILOSEC (OMEPRAZOLE) 09/20/2005 Date Reviewed: 03/30/2018 Reviewed by: Niki Ye (Comfort) COMFORT Rios - Fully Assessed Reason for Visit: Social Work Services [507] Prescriptions as of 04/12/2018 Sig: CAPECITABINE 500 MG TABLET Take 4 tablets by mouth twice* TIZANIDINE 4 MG CAPSULE Take 1 capsule by mouth three* TRIAMCINOLONE ACETONIDE 55 MC* Use 2 Sprays in the nose once* ASPIRIN 81 MG TABLET,DELAYED * Take 81 mg by mouth once curtis* ATORVASTATIN 80 MG TABLET Take 80 mg by mouth once curtis* ISOSORBIDE MONONITRATE ER 30 * Take 30 mg by mouth once curtis* LISINOPRIL 20 MG TABLET Take 20 mg by mouth once curtis* METOPROLOL TARTRATE 25 MG TAB* Take 25 mg by mouth twice cely* MIRALAX ORAL Take 1 scoop by mouth once da* TAMSULOSIN 0.4 MG CAPSULE Take 1 capsule by mouth daily* RABEPRAZOLE 20 MG TABLET,MIA* Take 1 tablet by mouth once d* Patient taking differently: Take 20 mg by mouth twice cely* HYDROCHLOROTHIAZIDE 12.5 MG C* Take 1 capsule by mouth once * Patient not taking: Reported on 03/19/2018 Problem List As Of Date 04/12/2018 Noted Resolved CALCULUS OF KIDNEY [N20.0] INVALID FOR* BENIGN HYPERTENSION [I10] INVALID FOR* HYPERLIPIDEMIA NEC/NOS [E78.5] INVALID FOR* ESOPHAGEAL REFLUX [K21.9] INVALID FOR* Vasomotor rhinitis [J30.0] INVALID FOR* BPH (benign prostatic hyperplasia) [N40.0] INVALID FOR* Cancer of cecum (HCC) [C18.0] INVALID FOR* 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 PERSONS INTERVIEWED: family - Name: Blanka, spouse, [facility] brewery representative and nurse INTERVENTION: Phone Contact, Team Meeting and Information AND Referral Service Co-ordination Affect/Mood: The patient is noted as patient not present IDENTIFIED PROBLEMS/NEEDS: Financial Intervention/Referral to be provided:Arrangements made for continuity of care Information for community resources/agencies Financial: Applications(s) sent to: Other: [facility] [employer] [facility] IMPRESSION/PLAN: SW received referral from nurse regarding issues getting patient's Xeloda. [facility] was informed from patient's insurance company that Xeloda would need to be provided through [facility], so [facility] SP sent Rx to [facility]. [facility] said they were not contracted with patient's insurance to cover this medication through Medicare Part B. SINCERE called patient's insurance company and was informed that patient actually needs this medication through [facility]. SINCERE contacted [facility] to get their information and needs for filling new Rx. [employer] is working on getting new Rx for SW to send to [facility] along with demographic information and copy of insurance card. SINCERE also spoke with patient's spouse about patient assistance that may be available through [facility] Access [facility]. Patient's spouse reports she is agreeable for to apply for this. SINCERE called [facility] to apply for patient and patient was approved. SINCERE will write this information down on fax cover sheet when sending information to [facility]. Patient's jessica award information is as follows: Group: [id number] Rx Bin: [id number] PCN: [employer] contacted patient's spouse afterward and also provided her with this information. SINCERE will fax information to [facility] tomorrow when physician Rx is obtained. F/U APPOINTMENT: WAQAS Leroy CNSW Observed: 04/11/2018 Status: COMPLETED Source: [place] 12:[address] [facility] REPOSITORY Social Work (HEMAWS) MYRNA JORGENSEN ([id number]) 1950 M Date Time Provider Department 04/11/18 SABINA SARAVIA (SINCERE) NIMA During your visit today, we recorded the following information about you: WAQAS Fuchs 04/11/2018 4:13 PM Signed Social Work Problem Referral Note INFORMATION/REFERRAL : Myrna Jorgensen 68 year old male was referred by nurse to [facility] Social Work for the following reason(s): Prescription issue and financial assistance - meals, parking, etc. PERSONS INTERVIEWED: family - Name: Blanka, spouse, [facility] brewery representative and nurse INTERVENTION: Phone Contact, Team Meeting and Information AND Referral Service Co-ordination Affect/Mood: The patient is noted as patient not present IDENTIFIED PROBLEMS/NEEDS: Financial Intervention/Referral to be provided:Arrangements made for continuity of care Information for community resources/agencies Financial: Applications(s) sent to: Other: Patient Access Network [facility] IMPRESSION/PLAN: SINCERE received referral from nurse regarding issues getting patient's Xeloda. [facility] was informed from patient's insurance company that Xeloda would need to be provided through [facility], so [facility] SP sent Rx to [facility]. [facility] said they were not contracted with patient's insurance to cover this medication through Medicare Part B. SINCERE called patient's insurance company and was informed that patient actually needs this medication through [facility]. SINCERE contacted [facility] to get their information and needs for filling new Rx. [employer] is working on getting new Rx for SW to send to [facility] along with demographic information and copy of insurance card. SINCERE also spoke with patient's spouse about patient assistance that may be available through Patient Access [facility]. Patient's spouse reports she is agreeable for SINCERE to apply for this. SINCERE called [employer] to apply for patient and patient was approved. SINCERE will write this information down on fax cover sheet when sending information to [facility]. Patient's jessica award information is as follows: Group: [id number] Rx Bin: [id number] PCN: [employer] POST contacted patient's spouse afterward and also provided her with this information. SINCERE will fax information to [facility] tomorrow when physician Rx is obtained. F/U APPOINTMENT: WAQAS Leroy Allergies As of Date: 04/11/2018 Noted Allergy Reaction PRILOSEC (OMEPRAZOLE) 09/20/2005 Date Reviewed: 03/30/2018 Reviewed by: Niki Ye (Musical Performer) COMFORT Rios - Fully Assessed Reason for Visit: Social Work Services [507] Cmt: patient assistance Xeloda Prescriptions as of 04/11/2018 Sig: CAPECITABINE 500 MG TABLET Take 4 tablets by mouth twice* TIZANIDINE 4 MG CAPSULE Take 1 capsule by mouth three* TRIAMCINOLONE ACETONIDE 55 MC* Use 2 Sprays in the nose once* ASPIRIN 81 MG TABLET,DELAYED * Take 81 mg by mouth once curtis* ATORVASTATIN 80 MG TABLET Take 80 mg by mouth once curtis* ISOSORBIDE MONONITRATE ER 30 * Take 30 mg by mouth once curtis* LISINOPRIL 20 MG TABLET Take 20 mg by mouth once curtis* METOPROLOL TARTRATE 25 MG TAB* Take 25 mg by mouth twice cely* MIRALAX ORAL Take 1 scoop by mouth once da* TAMSULOSIN 0.4 MG CAPSULE Take 1 capsule by mouth daily* RABEPRAZOLE 20 MG TABLET,MIA* Take 1 tablet by mouth once d* Patient taking differently: Take 20 mg by mouth twice cely* HYDROCHLOROTHIAZIDE 12.5 MG C* Take 1 capsule by mouth once * Patient not taking: Reported on 03/19/2018 Problem List As Of Date 04/11/2018 Noted Resolved CALCULUS OF KIDNEY [N20.0] INVALID FOR* BENIGN HYPERTENSION [I10] INVALID FOR* HYPERLIPIDEMIA NEC/NOS [E78.5] INVALID FOR* ESOPHAGEAL REFLUX [K21.9] INVALID FOR* Vasomotor rhinitis [J30.0] INVALID FOR* BPH (benign prostatic hyperplasia) [N40.0] INVALID FOR* Cancer of cecum (HCC) [C18.0] INVALID FOR* 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 REPOSITORY HNO ID: [id number] Author: Janine Aj (Pharmacist) Service: (none) Author Type: Pharmacist Type: Progress Notes Filed: 04/03/2018 12:22 PM Note Text: [facility] received prescription(s) for capecitabine (Xeloda) from Dr. Ramos's office. Benefits investigation was conducted, indicating that pt has an [employer] Medicare Advantage plan that bundles his Medicare Parts A, B and D benefits. Capecitabine is a medically billed, Part B medication. Medical billing to Part B can only be completed by [facility]'s in-network DME pharmacies, [facility] not being one of them. Called [facility], who advised that the prescription should be forwarded to [facility], who is in-network to be able to medically bill Part B. Will pend Rx request to go to that pharmacy. No further action by [facility] Janine Aj, PharmD Clinical Pharmacist, Oncology, Growth Hormone [facility] P: , F: [phone] [facility] Observed: 04/02/2018 Status: COMPLETED Source: [place] 12:[address] [facility] REPOSITORY Telephone (NIMA) MYRNA JORGENSEN ([id number]) 1950 M Date Time Provider Department 04/02/18 ESTEBAN RAMOS During your visit today, we recorded the following information about you: Ursula Riggs Pss 04/02/2018 12:51 PM Signed Patient's called in - she states that patient's insurance will not cover the lab work to be done at the [facility] - Dr. Ramos ordered labwork. The insurance company states that it must be done at [facility]. Patient's wanted to make sure the orders are re-placed to [facility]. She would like to be notified when they are placed so that patient can make sure to have the lab work done before patient's appointment on 04/20. Please advise - patient can be reached at [phone] Esteban Ramos DO 04/03/2018 8:21 AM Signed I printed orders for a weekly standing CBC/CMP to be faxed over to the hospital. He'll need to have those labs done the day prior to seeing me on 04/20. DO Meryl Sanchez LPN 04/03/2018 8:58 AM Signed Lab orders faxed to [facility]. Patient aware to have them drawn the day before the next office visit. Meryl Amaral LPN Allergies As of Date: 04/02/2018 Noted Allergy Reaction PRILOSEC (OMEPRAZOLE) 09/20/2005 Date Reviewed: 03/30/2018 Reviewed by: Niki Ye (Comfort) COMFORT Rios - Fully Assessed Reason for Visit: other [Other] Cmt: Upcoming Lab Work Primary Visit Diagnosis:Cancer of cecum (HCC) [C18.0] Order(s):DANISHA CBC AND DIFF [SQWCBCDF] Order #: [id number] STANDING COMP METABOLIC PANEL [SQCMP] Order #: [id number] STANDING Prescriptions as of 04/02/2018 Sig: TIZANIDINE 4 MG CAPSULE Take 1 capsule by mouth three* CAPECITABINE 500 MG TABLET Take 4 tablets by mouth twice* TRIAMCINOLONE ACETONIDE 55 MC* Use 2 Sprays in the nose once* ASPIRIN 81 MG TABLET,DELAYED * Take 81 mg by mouth once curtis* ATORVASTATIN 80 MG TABLET Take 80 mg by mouth once curtis* ISOSORBIDE MONONITRATE ER 30 * Take 30 mg by mouth once curtis* LISINOPRIL 20 MG TABLET Take 20 mg by mouth once curtis* METOPROLOL TARTRATE 25 MG TAB* Take 25 mg by mouth twice cely* MIRALAX ORAL Take 1 scoop by mouth once da* TAMSULOSIN 0.4 MG CAPSULE Take 1 capsule by mouth daily* RABEPRAZOLE 20 MG TABLET,MIA* Take 1 tablet by mouth once d* Patient taking differently: Take 20 mg by mouth twice cely* HYDROCHLOROTHIAZIDE 12.5 MG C* Take 1 capsule by mouth once * Patient not taking: Reported on 03/19/2018 Problem List As Of Date 04/02/2018 Noted Resolved CALCULUS OF KIDNEY [N20.0] INVALID FOR* BENIGN HYPERTENSION [I10] INVALID FOR* HYPERLIPIDEMIA NEC/NOS [E78.5] INVALID FOR* ESOPHAGEAL REFLUX [K21.9] INVALID FOR* Vasomotor rhinitis [J30.0] INVALID FOR* BPH (benign prostatic hyperplasia) [N40.0] INVALID FOR* Cancer of cecum (HCC) [C18.0] INVALID FOR* Metastatic cancer to intra-abdominal lymph node*INVALID FOR* Encounter Status:Closed by ESTEBAN RAMOS DO on 04/03/18 CNOVSP Observed: 03/30/2018 Status: COMPLETED Source: [place] 3:[address] [facility] REPOSITORY Visit (SP) Office (HEMCORI) MYRNA JORGENSEN ([id number]) 1950 M Date Time Provider Department 03/30/18 3:30 PM ESTEBAN RAMOS During your visit today, we recorded the following information about you: Temperature Pulse Blood pressure Weight 99.1 degrees 77/minute 127/62 99.8 kg Height 1.759 m Esteban Ramos DO 04/02/2018 1:14 PM Signed Consult requested by Dr. Ferreira for my opinion and recommendations regarding a patient who recently had surgery for a stage III colon cancer. The impression and plan will be communicated by way of the shared electronic record. HPI: The patient is a 68 yo male HTN and CAD (SC 2017; 2 stents RCA). Patient was on ASA and Plavix. Had episode rectal bleeding without previous bleeding. Went to ED where bleeding continued. Admitted. MICROSCOPIC DIAGNOSIS A. Right colon, hemicolectomy: Invasive adenocarcinoma. See complete cancer checklist below. B. Soft tissue of umbilical region, excision: Fragment of fibrofatty tissue with mild fibrosis consistent with hernia sac. No evidence of malignancy. COMMENT COLON CANCER SUMMARY: Specimen ? right colon Procedure ? right hemicolectomy Tumor site ? right colon Tumor size ? 2.5 x 2 x 0.5 cm Macroscopic tumor perforation ? not identified Histologic type - adenocarcinoma Histologic grade ? low-grade (moderately differentiated) Microscopic tumor extension ? tumor invades through the muscularis propria to the subserosal adipose tissue. Tumor is located 3 cm from its closest (distal) mucosal margin of excision. Margins: Proximal margin ? uninvolved by invasive carcinoma. Distal margin - uninvolved by invasive carcinoma. Circumferential or mesenteric margin - uninvolved by invasive carcinoma. Treatment effect - unknown Lymph-Vascular invasion ? not identified. Perineural invasion ? not identified Tumor deposits - not identified Lymph nodes: Number of lymph nodes examined - 39 Number of lymph nodes involved - 1 Additional pathologic findings ? largest polyp close to ileocecal valve with focal high-grade dysplasia. Two smaller polyps ? tubular adenoma Appendix ? fibrous obliteration of distal appendix and focal hyperplastic mucosal change. Ancillary studies: Microsatellite instability - Negative (no loss of mismatch protein; no microsatellite instability detected). Immunohistochemistry studies for mismatch repair proteins: MLH1 - Intact nuclear positivity, tumor cells MSH2 - Intact nuclear positivity, tumor cells MSH6 - Intact nuclear positivity, tumor cells PMS2 - Intact nuclear positivity, tumor cells PATHOLOGIC STAGE: pT3 N1a Mx He is making a very nice recovery thus far. PMH, medications and allergies personally reviewed by me today. Any changes documented in appropriate section. ROS: Constitutional: Denies episodes of fever and night sweats. Neuro: Denies LEWIS, vertigo, dizziness and imbalance. Denies symptoms of neuropathy. HEENT: No recent change in voice, vision or hearing. Resp: Denies cough, wheeze and hemoptysis. Denies shortness of breath at rest. Denies SOTO. CVS: Denies exertional chest pain, PND, orthopnea and LE edema. GI: Denies dysgeusia. Denies symptoms of stomatitis. Denies dysphagia and odynophagia. Denies reflux, n/v. : Denies dysuria or gross hematuria. No symptoms of bladder outlet obstruction. Endo: Denies hot flashes. Denies polyuria and polydipsia. Denies heat and cold intolerance. Musculoskeletal: Right sided sciatica. Intermittent. Derm: Denies rash. Denies jaundice and diffuse pruritis. Heme: Denies unusual bleeding and unexplained bruising. Psych: Normal mood. PHYSICAL EXAM: Vitals: Blood pressure 127/62, pulse 77, temperature 37.3 ?C (99.1 ?F), height 175.9 cm (5' 9.25), weight 99.8 kg (220 lb). Well-appearing and in no acute distress. EYES: Sclerae are anicteric bilaterally. NECK: Supple. No enlargement of thyroid. LYMPHATIC: There is no palpable cervical, supraclavicular, axillary or inguinal adenopathy. RESPIRATORY: Inspiratory breath sounds are of normal intensity in all monroy. No rales, wheezes or rhonchi. Expiratory phase is normal. CARDIOVASCULAR: Rhythm is regular. Normal intensity S1/S2. There is no gallop or murmur. ABDOMEN: The abdomen is nondistended. No organomegaly. No tenderness. Extremities: No swelling or edema. SKIN: No jaundice or rash. No petechiae. NEUROLOGIC: open cut examiner II-XII are grossly intact. No focal motor weakness. DTRs are symmetric and normal. MUSCULOSKELETAL: No joint swelling or tenderness. No muscle wasting. 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 -Pathologic staging completed in problem list. -I discussed with the patient and his the natural history, treated course, and prognosis of IIIA adenocarcinoma the right colon.. Also discussed the rationale, logistics, potential risks (including ), benefits and alternatives, as well as the personnel involved in the administration of CAPEOX/FOLFOX. I answered his questions in detail and he verbalized understanding and agreed with the recommended therapy. Please see the electronic consent document for details of doses and schedule. -CAPEOX x3 months if insurance covers capecitabine. FOLFOX x3-6 months if it doesn't. Plan: -Rx for capecitabine sent. -Plan chemotherapy teaching for oxaliplatin. -Begin therapy in about a month. Total [id number]-[id number] time was >60 minutes with greater than 45 minutes spent discussing the issues outlined above and/or coordinating care. DO Niki Sanchez LPN, LPN 03/30/2018 3:55 PM Signed New patient, diagnose recent DX: colon cancer Niki Rios LPN Referring Provider: CHRIS FERREIRA [[id number]] Allergies As of Date: 03/30/2018 Noted Allergy Reaction PRILOSEC (OMEPRAZOLE) 09/20/2005 Date Reviewed: 03/30/2018 Reviewed by: Niki Jo) COMFORT Rios - Fully Assessed Reason for Visit: New Patient [172] Primary Visit Diagnosis:Cancer of cecum (HCC) [C18.0] Other Visit Diagnosis:Metastatic cancer to intra-abdominal lymph nodes (HCC) [C77.2] Order(s):tiZANidine HCl 4 mg capsuleTake 1 capsule by mouth three times daily.Disp: 90 capsuleRfl: 0 capecitabine (XELODA) 500 mg tabletTake 4 tablets by mouth twice daily.Disp: 112 tabletRfl: 5 Follow-up and Disposition History Recorded Prescriptions as of 03/30/2018 Sig: TRIAMCINOLONE ACETONIDE 55 MC* Use 2 Sprays in the nose once* ASPIRIN 81 MG TABLET,DELAYED * Take 81 mg by mouth once curtis* ISOSORBIDE MONONITRATE ER 30 * Take 30 mg by mouth once curtis* LISINOPRIL 20 MG TABLET Take 20 mg by mouth once curtis* MIRALAX ORAL Take 1 scoop by mouth once da* TAMSULOSIN 0.4 MG CAPSULE Take 1 capsule by mouth daily* RABEPRAZOLE 20 MG TABLET,MIA* Take 1 tablet by mouth once d* Patient taking differently: Take 20 mg by mouth twice cely* TIZANIDINE 4 MG CAPSULE Take 1 capsule by mouth three* CAPECITABINE 500 MG TABLET Take 4 tablets by mouth twice* ATORVASTATIN 80 MG TABLET Take 80 mg by mouth once curtis* METOPROLOL TARTRATE 25 MG TAB* Take 25 mg by mouth twice cely* HYDROCHLOROTHIAZIDE 12.5 MG C* Take 1 capsule by mouth once * Patient not taking: Reported on 03/19/2018 Medication notes this encounter ATORVASTATIN 80 MG TABLET >> Niki Rios LPN, LPN 03/30/2018 3:32 PM >> NIKI RIOS MonMar 30, 2018 3:32 PM Hasn't taken in past couple weeks METOPROLOL TARTRATE 25 MG TABLET >> Niki Rios LPN, STOPPER GRINDER 03/30/2018 3:33 PM >> NIKI RIOS MonMar 30, 2018 3:33 PM On hold DOCUSATE SODIUM 100 MG CAPSULE >> Niki Rios LPN, STOPPER GRINDER 03/30/2018 3:33 PM >> NIKI RIOS MonMar 30, 2018 3:33 PM discontinued OTC NUTRITIONAL SUPPLEMENT >> Niki Rios LPN, STOPPER GRINDER 03/30/2018 3:34 PM >> NIKI RIOS MonMar 30, 2018 3:34 PM On hold COMPOUNDED PRESCRIPTION >> Niki Rios LPN, STOPPER GRINDER 03/30/2018 3:33 PM >> NIKI RIOS MonMar 30, 2018 3:33 PM discontinued NEOMYCIN 500 MG TABLET >> Niki Rios LPN, STOPPER GRINDER 03/30/2018 3:34 PM >> NIKI RIOS MonMar 30, 2018 3:34 PM discontinued METRONIDAZOLE 500 MG TABLET >> Niki Rios LPN, STOPPER GRINDER 03/30/2018 3:33 PM >> NIKI RIOS MonMar 30, 2018 3:33 PM Completed course Problem List As Of Date 03/30/2018 Noted Resolved CALCULUS OF KIDNEY [N20.0] INVALID FOR* BENIGN HYPERTENSION [I10] INVALID FOR* HYPERLIPIDEMIA NEC/NOS [E78.5] INVALID FOR* ESOPHAGEAL REFLUX [K21.9] INVALID FOR* Vasomotor rhinitis [J30.0] INVALID FOR* BPH (benign prostatic hyperplasia) [N40.0] INVALID FOR* Cancer of cecum (HCC) [C18.0] INVALID FOR* Metastatic cancer to intra-abdominal lymph node*INVALID FOR* Visit Notes: >> Niki Ye (Comfort) COMFORT Rios MonMar 30, 2018 3:34 PM Status: Signed New patient, diagnose recent DX: colon cancer Niki Rios LPN Encounter Status:Closed by ESTEBAN RAMOS DO on 04/02/18 PROGRESS Observed: 03/30/2018 Status: COMPLETED Source: [place] 3:[address] [facility] REPOSITORY HNO ID: [id number] Author: Esteban Ramos Service: (none) Author Type: Physician Type: Progress Notes Filed: 04/02/2018 1:14 PM Note Text: Consult requested by Dr. Ferreira for my opinion and recommendations regarding a patient who recently had surgery for a stage III colon cancer. The impression and plan will be communicated by way of the shared electronic record. HPI: The patient is a 68 yo male HTN and CAD (SC 2017; 2 stents RCA). Patient was on ASA and Plavix. Had episode rectal bleeding without previous bleeding. Went to ED where bleeding continued. Admitted. MICROSCOPIC DIAGNOSIS A. Right colon, hemicolectomy: Invasive adenocarcinoma. See complete cancer checklist below. B. Soft tissue of umbilical region, excision: Fragment of fibrofatty tissue with mild fibrosis consistent with hernia sac. No evidence of malignancy. COMMENT COLON CANCER SUMMARY: Specimen ? right colon Procedure ? right hemicolectomy Tumor site ? right colon Tumor size ? 2.5 x 2 x 0.5 cm Macroscopic tumor perforation ? not identified Histologic type - adenocarcinoma Histologic grade ? low-grade (moderately differentiated) Microscopic tumor extension ? tumor invades through the muscularis propria to the subserosal adipose tissue. Tumor is located 3 cm from its closest (distal) mucosal margin of excision. Margins: Proximal margin ? uninvolved by invasive carcinoma. Distal margin - uninvolved by invasive carcinoma. Circumferential or mesenteric margin - uninvolved by invasive carcinoma. Treatment effect - unknown Lymph-Vascular invasion ? not identified. Perineural invasion ? not identified Tumor deposits - not identified Lymph nodes: Number of lymph nodes examined - 39 Number of lymph nodes involved - 1 Additional pathologic findings ? largest polyp close to ileocecal valve with focal high-grade dysplasia. Two smaller polyps ? tubular adenoma Appendix ? fibrous obliteration of distal appendix and focal hyperplastic mucosal change. Ancillary studies: Microsatellite instability - Negative (no loss of mismatch protein; no microsatellite instability detected). Immunohistochemistry studies for mismatch repair proteins: MLH1 - Intact nuclear positivity, tumor cells MSH2 - Intact nuclear positivity, tumor cells MSH6 - Intact nuclear positivity, tumor cells PMS2 - Intact nuclear positivity, tumor cells PATHOLOGIC STAGE: pT3 N1a Mx He is making a very nice recovery thus far. PMH, medications and allergies personally reviewed by me today. Any changes documented in appropriate section. ROS: Constitutional: Denies episodes of fever and night sweats. Neuro: Denies LEWIS, vertigo, dizziness and imbalance. Denies symptoms of neuropathy. HEENT: No recent change in voice, vision or hearing. Resp: Denies cough, wheeze and hemoptysis. Denies shortness of breath at rest. Denies SOTO. CVS: Denies exertional chest pain, PND, orthopnea and LE edema. GI: Denies dysgeusia. Denies symptoms of stomatitis. Denies dysphagia and odynophagia. Denies reflux, n/v. : Denies dysuria or gross hematuria. No symptoms of bladder outlet obstruction. Endo: Denies hot flashes. Denies polyuria and polydipsia. Denies heat and cold intolerance. Musculoskeletal: Right sided sciatica. Intermittent. Derm: Denies rash. Denies jaundice and diffuse pruritis. Heme: Denies unusual bleeding and unexplained bruising. Psych: Normal mood. PHYSICAL EXAM: Vitals: Blood pressure 127/62, pulse 77, temperature 37.3 ?C (99.1 ?F), height 175.9 cm (5' 9.25), weight 99.8 kg (220 lb). Well-appearing and in no acute distress. EYES: Sclerae are anicteric bilaterally. NECK: Supple. No enlargement of thyroid. LYMPHATIC: There is no palpable cervical, supraclavicular, axillary or inguinal adenopathy. RESPIRATORY: Inspiratory breath sounds are of normal intensity in all monroy. No rales, wheezes or rhonchi. Expiratory phase is normal. CARDIOVASCULAR: Rhythm is regular. Normal intensity S1/S2. There is no gallop or murmur. ABDOMEN: The abdomen is nondistended. No organomegaly. No tenderness. Extremities: No swelling or edema. SKIN: No jaundice or rash. No petechiae. NEUROLOGIC: open cut examiner II-XII are grossly intact. No focal motor weakness. DTRs are symmetric and normal. MUSCULOSKELETAL: No joint swelling or tenderness. No muscle wasting. 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 -Pathologic staging completed in problem list. -I discussed with the patient and his the natural history, treated course, and prognosis of IIIA adenocarcinoma the right colon.. Also discussed the rationale, logistics, potential risks (including ), benefits and alternatives, as well as the personnel involved in the administration of CAPEOX/FOLFOX. I answered his questions in detail and he verbalized understanding and agreed with the recommended therapy. Please see the electronic consent document for details of doses and schedule. -CAPEOX x3 months if insurance covers capecitabine. FOLFOX x3-6 months if it doesn't. Plan: -Rx for capecitabine sent. -Plan chemotherapy teaching for oxaliplatin. -Begin therapy in about a month. Total ehhm-my-nkjx time was >60 minutes with greater than 45 minutes spent discussing the issues outlined above and/or coordinating care. Esteban Ramos DO PROGRESS Observed: 03/28/2018 Status: COMPLETED Source: [place] 5:28 PM [facility] [place] REPOSITORY HNO ID: [id number] Author: Chris Ferreira Service: (none) Author Type: Physician Type: Progress Notes Filed: 03/28/2018 5:34 PM Note Text: FOLLOW UP VISIT - POST OP COLON CANCER NAME: Myrna Jorgensen [facility] NO.: [id number] DATE OF SERVICE: 03/27/2018 : 1950 REFERRING PHYSICIAN: Shlomo Dudley DO Myrna is a patient I am following for a mid transverse colon colon cancer. The patient is a 68 year old male with a complaint of rectal bleeding. The patient has a history of coronary artery disease. He had 2 stents placed last April. He is chronically on Plavix and aspirin. The patient presented to [facility] last week with rectal bleeding. He was admitted to the medicine service. A CT scan of the abdomen and pelvis was obtained which demonstrated no specific abnormalities in the liver. There was felt to be thickening in the mid transverse colon. My partner, Lorenza Cueva was consulted. She performed upper and lower endoscopy on March 15, 2018. Upper endoscopy demonstrated very mild antritis and benign gastric fundic polyps. Colonoscopy was performed and at the mid transverse colon a fungating mass was identified. Multiple biopsies were obtained. Luis ink was injected for identification and a clip was placed to better localize this abnormality. Postprocedure KUB was obtained which demonstrated the clip just to the right of the midline vertebral structures. Pathology returned this morning. Pathology demonstrated: MICROSCOPIC DIAGNOSIS A. Antral biopsy: Mild gastritis. B. Gastric polyp, biopsy: Fundic gland polyp. C. Transverse colon mass, biopsy: Invasive moderately differentiated adenocarcinoma. See comment. The patient was seen in the hospital by his bladder tier, Dr. Esteban Grigsby. Dr. Grigsby felt that overall, the patient was a reasonable risk for surgical intervention locally. He was comfortable holding both his aspirin and his plavix. The patient's last dose of Plavix was Monday. PAST MEDICAL HISTORY Diagnosis Date - BPH (benign prostatic hyperplasia) 09/02/2010 - Colon cancer (HCC) 03/2018 - Esophageal reflux 02/02/2008 - Heart attack (HCC) 04/2017 - Hernia of other specified sites of abdominal cavity without mention of obstruction or gangrene rectal - Renal calculus - Vasomotor rhinitis 09/02/2010 PAST SURGICAL HISTORY Procedure Laterality Date - PAST SURGICAL HISTORY OF Right 1979 detatched retina - PAST SURGICAL HISTORY OF removal of kidney stone - PAST SURGICAL HISTORY OF 1979 rectal surgery? - PRQ CARDIAC STENT W/ANGIO 1 VSL 04/2017 Current Outpatient Prescriptions: docusate sodium (COLACE) 100 mg capsule Take 100 mg by mouth twice daily. Disp: Rfl: triamcinolone acetonide (NASACORT AQ) 55 mcg nasal inhaler Use 2 Sprays in the nose once daily. Disp: Rfl: aspirin, enteric coated (ECOTRIN LOW STRENGTH) 81 mg EC tablet Take 81 mg by mouth once daily. Disp: Rfl: atorvastatin (LIPITOR) 80 mg tablet Take 80 mg by mouth once daily. Disp: Rfl: isosorbide mononitrate ER (IMDUR) 30 mg 24 hr tablet Take 30 mg by mouth once daily. Disp: Rfl: lisinopril (ZESTRIL) 20 mg tablet Take 20 mg by mouth once daily. Disp: Rfl: metoprolol tartrate, short acting, (LOPRESSOR) 25 mg tablet Take 25 mg by mouth twice daily. Disp: Rfl: polyethylene glycol 3350 (MIRALAX ORAL) Take 1 scoop by mouth once daily. Disp: Rfl: OTC NUTRITIONAL SUPPLEMENT once daily. Glucosamine/chondroitin 1500/1200mg Disp: Rfl: tamsulosin ER (FLOMAX) 0.4 mg cp24 Take 1 capsule by mouth daily at bedtime. Disp: 90 capsule Rfl: 0 RABEprazole (ACIPHEX) 20 mg tablet Take 1 tablet by mouth once daily. (Patient taking differently: Take 20 mg by mouth twice daily. ) Disp: 90 tablet Rfl: 0 Miralax / Gatorade Prep Miralax 238 gm bottle, (2) 32 oz bottles of Gatorade, AND 4 Dulcolax 5 mg tabs- as directed per instructions Disp: Rfl: neomycin 500 mg tablet Take 2 tablets by mouth four times daily. 2 TABLETS AT 6, 8 ,AND 10 PM Disp: 6 tablet Rfl: 0 metroNIDAZOLE (FLAGYL) 500 mg tablet Take 1 tablet by mouth three times daily. 2 TABLETS AT 6, 8, AND 10 PM Disp: 6 tablet Rfl: 0 Hydrochlorothiazide 12.5 mg capsule Take 1 capsule by mouth once daily. (Patient not taking: Reported on 03/19/2018 ) Disp: 90 capsule Rfl: 0 mometasone (NASONEX) 50 mcg/actuation nasal spray 2 puffs in each nostrils daily (Patient not taking: Reported on 03/19/2018 ) Disp: 3 Bottle Rfl: 3 methylPREDNISolone (MEDROL, MELODY,) 4 mg tablet Follow dosing instructions, take by mouth with food. (Patient not taking: Reported on 03/19/2018 ) Disp: 1 Package Rfl: 0 No current facility-administered medications for this visit. Last Plavix dose was Monday evening I performed a laparoscopic extended right hemicolectomy on March 20, 2018. The patient did well and was discharged home on March 23. He did note some dizziness the day after discharge, but we held his beta mandeep and he has been doing well since. The pathology demonstrated: MICROSCOPIC DIAGNOSIS A. Right colon, hemicolectomy: Invasive adenocarcinoma. See complete cancer checklist below. B. Soft tissue of umbilical region, excision: Fragment of fibrofatty tissue with mild fibrosis consistent with hernia sac. No evidence of malignancy. AM:claudio 03/26/18 COMMENT COLON CANCER SUMMARY: Specimen ? right colon Procedure ? right hemicolectomy Tumor site ? right colon Tumor size ? 2.5 x 2 x 0.5 cm Macroscopic tumor perforation ? not identified Histologic type - adenocarcinoma Histologic grade ? low-grade (moderately differentiated) Microscopic tumor extension ? tumor invades through the muscularis propria to the subserosal adipose tissue. Tumor is located 3 cm from its closest (distal) mucosal margin of excision. Margins: Proximal margin ? uninvolved by invasive carcinoma. Distal margin - uninvolved by invasive carcinoma. Circumferential or mesenteric margin - uninvolved by invasive carcinoma. Treatment effect - unknown Lymph-Vascular invasion ? not identified. Perineural invasion ? not identified Tumor deposits - not identified Lymph nodes: Number of lymph nodes examined - 39 Number of lymph nodes involved - 1 Additional pathologic findings ? largest polyp close to ileocecal valve with focal high-grade dysplasia. Two smaller polyps ? tubular adenoma Appendix ? fibrous obliteration of distal appendix and focal hyperplastic mucosal change. Ancillary studies: Microsatellite instability - Negative (no loss of mismatch protein; no microsatellite instability detected). Immunohistochemistry studies for mismatch repair proteins: MLH1 - Intact nuclear positivity, tumor cells MSH2 - Intact nuclear positivity, tumor cells MSH6 - Intact nuclear positivity, tumor cells PMS2 - Intact nuclear positivity, tumor cells PATHOLOGIC STAGE: pT3 N1a Mx Myrna notes overall he is doing quite well. Post operative pain has been well controlled. The patient denies nausea. The patient`s appetite has been good. VITALS: Blood pressure 124/68, pulse 70, temperature 37.1 ?C (98.8 ?F), temperature source Temporal Artery. On examination, the abdominal skin incisions were clean, dry, and intact. The bowel sounds were normal, the abdomen was soft. Assessment IMPRESSION: Status Post laparoscopic right hemicolectomy for colon cancer. PLAN: Myrna may return to regular activities as tolerated with the exception of no heavy lifting. .he may shower and bathe. The patient may now drive as long as he is no longer taking narcotic pain medication. If he notes any difficulties, he should contact me immediately. I plan to refer him for evaluation by oncology - Dr. Esteban Ramos. Diagnoses: (C18.4) Malignant neoplasm of transverse colon (HCC) (primary encounter diagnosis) Return to Clinic: The patient is instructed to follow- up with me in 3 weeks. Chris Ferreira MD CNOV Observed: 03/27/2018 Status: COMPLETED Source: [place] 1:[address] [facility] REPOSITORY Office Visit (GENSWS) MYRNA JORGENSEN ([id number]) 1950 Date Time Provider Department 03/27/18 1:40 PM CHRIS FERREIRA During your visit today, we recorded the following information about you: Temperature Pulse Blood pressure 98.8 degrees 70/minute 124/68 Chris Ferreira MD 03/28/2018 5:34 PM Signed FOLLOW UP VISIT - POST OP COLON CANCER NAME: Myrna Jorgensen CLINIC NO.: [id number] DATE OF SERVICE: 03/27/2018 : 1950 REFERRING PHYSICIAN: Shlomo Dudley DO Myrna is a patient I am following for a mid transverse colon colon cancer. The patient is a 68 year old male with a complaint of rectal bleeding. The patient has a history of coronary artery disease. He had 2 stents placed last April. He is chronically on Plavix and aspirin. The patient presented to [facility] last week with rectal bleeding. He was admitted to the medicine service. A CT scan of the abdomen and pelvis was obtained which demonstrated no specific abnormalities in the liver. There was felt to be thickening in the mid transverse colon. My partner, Lorenza Hammad was consulted. She performed upper and lower endoscopy on March 15, 2018. Upper endoscopy demonstrated very mild antritis and benign gastric fundic polyps. Colonoscopy was performed and at the mid transverse colon a fungating mass was identified. Multiple biopsies were obtained. Luis ink was injected for identification and a clip was placed to better localize this abnormality. Postprocedure KUB was obtained which demonstrated the clip just to the right of the midline vertebral structures. Pathology returned this morning. Pathology demonstrated: MICROSCOPIC DIAGNOSIS A. Antral biopsy: Mild gastritis. B. Gastric polyp, biopsy: Fundic gland polyp. C. Transverse colon mass, biopsy: Invasive moderately differentiated adenocarcinoma. See comment. The patient was seen in the hospital by his bladder tier, Dr. Esteban Grigsby. Dr. Grigsby felt that overall, the patient was a reasonable risk for surgical intervention locally. He was comfortable holding both his aspirin and his plavix. The patient's last dose of Plavix was Monday. PAST MEDICAL HISTORY Diagnosis Date - BPH (benign prostatic hyperplasia) 09/02/2010 - Colon cancer (HCC) 03/2018 - Esophageal reflux 02/02/2008 - Heart attack (HCC) 04/2017 - Hernia of other specified sites of abdominal cavity without mention of obstruction or gangrene rectal - Renal calculus - Vasomotor rhinitis 09/02/2010 PAST SURGICAL HISTORY Procedure Laterality Date - PAST SURGICAL HISTORY OF Right 1979 detatched retina - PAST SURGICAL HISTORY OF removal of kidney stone - PAST SURGICAL HISTORY OF 1979 rectal surgery? - PRQ CARDIAC STENT W/ANGIO 1 VSL 04/2017 Current Outpatient Prescriptions: docusate sodium (COLACE) 100 mg capsule Take 100 mg by mouth twice daily. Disp: Rfl: triamcinolone acetonide (NASACORT AQ) 55 mcg nasal inhaler Use 2 Sprays in the nose once daily. Disp: Rfl: aspirin, enteric coated (ECOTRIN LOW STRENGTH) 81 mg EC tablet Take 81 mg by mouth once daily. Disp: Rfl: atorvastatin (LIPITOR) 80 mg tablet Take 80 mg by mouth once daily. Disp: Rfl: isosorbide mononitrate ER (IMDUR) 30 mg 24 hr tablet Take 30 mg by mouth once daily. Disp: Rfl: lisinopril (ZESTRIL) 20 mg tablet Take 20 mg by mouth once daily. Disp: Rfl: metoprolol tartrate, short acting, (LOPRESSOR) 25 mg tablet Take 25 mg by mouth twice daily. Disp: Rfl: polyethylene glycol 3350 (MIRALAX ORAL) Take 1 scoop by mouth once daily. Disp: Rfl: OTC NUTRITIONAL SUPPLEMENT once daily. Glucosamine/chondroitin 1500/1200mg Disp: Rfl: tamsulosin ER (FLOMAX) 0.4 mg cp24 Take 1 capsule by mouth daily at bedtime. Disp: 90 capsule Rfl: 0 RABEprazole (ACIPHEX) 20 mg tablet Take 1 tablet by mouth once daily. (Patient taking differently: Take 20 mg by mouth twice daily. ) Disp: 90 tablet Rfl: 0 Miralax / Gatorade Prep Miralax 238 gm bottle, (2) 32 oz bottles of Gatorade, AND 4 Dulcolax 5 mg tabs- as directed per instructions Disp: Rfl: neomycin 500 mg tablet Take 2 tablets by mouth four times daily. 2 TABLETS AT 6, 8 ,AND 10 PM Disp: 6 tablet Rfl: 0 metroNIDAZOLE (FLAGYL) 500 mg tablet Take 1 tablet by mouth three times daily. 2 TABLETS AT 6, 8, AND 10 PM Disp: 6 tablet Rfl: 0 Hydrochlorothiazide 12.5 mg capsule Take 1 capsule by mouth once daily. (Patient not taking: Reported on 03/19/2018 ) Disp: 90 capsule Rfl: 0 mometasone (NASONEX) 50 mcg/actuation nasal spray 2 puffs in each nostrils daily (Patient not taking: Reported on 03/19/2018 ) Disp: 3 Bottle Rfl: 3 methylPREDNISolone (MEDROL, MELODY,) 4 mg tablet Follow dosing instructions, take by mouth with food. (Patient not taking: Reported on 03/19/2018 ) Disp: 1 Package Rfl: 0 No current facility-administered medications for this visit. Last Plavix dose was Monday evening I performed a laparoscopic extended right hemicolectomy on March 20, 2018. The patient did well and was discharged home on March 23. He did note some dizziness the day after discharge, but we held his beta mandeep and he has been doing well since. The pathology demonstrated: MICROSCOPIC DIAGNOSIS A. Right colon, hemicolectomy: Invasive adenocarcinoma. See complete cancer checklist below. B. Soft tissue of umbilical region, excision: Fragment of fibrofatty tissue with mild fibrosis consistent with hernia sac. No evidence of malignancy. AM:claudio 03/26/18 COMMENT COLON CANCER SUMMARY: Specimen ? right colon Procedure ? right hemicolectomy Tumor site ? right colon Tumor size ? 2.5 x 2 x 0.5 cm Macroscopic tumor perforation ? not identified Histologic type - adenocarcinoma Histologic grade ? low-grade (moderately differentiated) Microscopic tumor extension ? tumor invades through the muscularis propria to the subserosal adipose tissue. Tumor is located 3 cm from its closest (distal) mucosal margin of excision. Margins: Proximal margin ? uninvolved by invasive carcinoma. Distal margin - uninvolved by invasive carcinoma. Circumferential or mesenteric margin - uninvolved by invasive carcinoma. Treatment effect - unknown Lymph-Vascular invasion ? not identified. Perineural invasion ? not identified Tumor deposits - not identified Lymph nodes: Number of lymph nodes examined - 39 Number of lymph nodes involved - 1 Additional pathologic findings ? largest polyp close to ileocecal valve with focal high-grade dysplasia. Two smaller polyps ? tubular adenoma Appendix ? fibrous obliteration of distal appendix and focal hyperplastic mucosal change. Ancillary studies: Microsatellite instability - Negative (no loss of mismatch protein; no microsatellite instability detected). Immunohistochemistry studies for mismatch repair proteins: MLH1 - Intact nuclear positivity, tumor cells MSH2 - Intact nuclear positivity, tumor cells MSH6 - Intact nuclear positivity, tumor cells PMS2 - Intact nuclear positivity, tumor cells PATHOLOGIC STAGE: pT3 N1a Mx Myrna notes overall he is doing quite well. Post operative pain has been well controlled. The patient denies nausea. The patient`s appetite has been good. VITALS: Blood pressure 124/68, pulse 70, temperature 37.1 ?C (98.8 ?F), temperature source Temporal Artery. On examination, the abdominal skin incisions were clean, dry, and intact. The bowel sounds were normal, the abdomen was soft. Assessment IMPRESSION: Status Post laparoscopic right hemicolectomy for colon cancer. PLAN: Myrna may return to regular activities as tolerated with the exception of no heavy lifting. .he may shower and bathe. The patient may now drive as long as he is no longer taking narcotic pain medication. If he notes any difficulties, he should contact me immediately. I plan to refer him for evaluation by oncology - Dr. Esteban Ramos. Diagnoses: (C18.4) Malignant neoplasm of transverse colon (HCC) (primary encounter diagnosis) Return to Clinic: The patient is instructed to follow- up with me in 3 weeks. Chris Ferreira MD Referring Provider: SHLOMO DUDLEY [[id number]] Allergies As of Date: 03/27/2018 Noted Allergy Reaction PRILOSEC (OMEPRAZOLE) 09/20/2005 Date Reviewed: 03/27/2018 Reviewed by: Roopa Mae LPN - Fully Assessed Reason for Visit: Post Op [174] Primary Visit Diagnosis:Malignant neoplasm of transverse colon (HCC) [C18.4] Prescriptions as of 03/27/2018 Sig: DOCUSATE SODIUM 100 MG CAPSULE Take 100 mg by mouth twice da* TRIAMCINOLONE ACETONIDE 55 MC* Use 2 Sprays in the nose once* ASPIRIN 81 MG TABLET,DELAYED * Take 81 mg by mouth once curtis* ATORVASTATIN 80 MG TABLET Take 80 mg by mouth once curtis* ISOSORBIDE MONONITRATE ER 30 * Take 30 mg by mouth once curtis* LISINOPRIL 20 MG TABLET Take 20 mg by mouth once curtis* METOPROLOL TARTRATE 25 MG TAB* Take 25 mg by mouth twice cely* MIRALAX ORAL Take 1 scoop by mouth once da* OTC NUTRITIONAL SUPPLEMENT once daily. Glucosamine/chond* COMPOUNDED PRESCRIPTION Miralax 238 gm bottle, (2) 32* NEOMYCIN 500 MG TABLET Take 2 tablets by mouth four * METRONIDAZOLE 500 MG TABLET Take 1 tablet by mouth three * TAMSULOSIN 0.4 MG CAPSULE Take 1 capsule by mouth daily* RABEPRAZOLE 20 MG TABLET,MIA* Take 1 tablet by mouth once d* Patient taking differently: Take 20 mg by mouth twice cely* HYDROCHLOROTHIAZIDE 12.5 MG C* Take 1 capsule by mouth once * Patient not taking: Reported on 03/19/2018 MOMETASONE 50 MCG/ACTUATION N* 2 puffs in each nostrils daily Patient not taking: Reported on 03/19/2018 METHYLPREDNISOLONE 4 MG TABLE* Follow dosing instructions, t* Patient not taking: Reported on 03/19/2018 Problem List As Of Date 03/27/2018 Noted Resolved CALCULUS OF KIDNEY [N20.0] INVALID FOR* BENIGN HYPERTENSION [I10] INVALID FOR* HYPERLIPIDEMIA NEC/NOS [E78.5] INVALID FOR* ESOPHAGEAL REFLUX [K21.9] INVALID FOR* Vasomotor rhinitis [J30.0] INVALID FOR* BPH (benign prostatic hyperplasia) [N40.0] INVALID FOR* Follow-up and Disposition History Recorded Letter Text Encounter Status:Closed by CHRIS FERREIRA MD on 03/28/18 PROGRESS Observed: 03/25/2018 Status: COMPLETED Source: [place] 9:[address] [facility] REPOSITORY [facility] ID: [id number] Author: Chris Ferreira Service: (none) Author Type: Physician Type: Progress Notes Filed: 03/25/2018 9:32 AM Note Text: OPERATIVE NOTATION FOR [facility] SURGICAL PROCEDURE. March 20, 2018 Myrna Jorgensen 1950 [id number] male PROCEDURE: Laparoscopic colectomy partial right hemicolectomy- [id number] SURGEON: Souleymane Ferreira M.D. FACS MEDICAL SUPERINTENDENT: [facility] DEPT: WQ PROVIDER: [id number] Ferreira MD POS: [id number] DIAGNOSIS: (C18.4) Malignant neoplasm of transverse colon (HCC) (primary encounter diagnosis) ASA CLASS: 3 - Severe FINDINGS: extended right hemicolectomy COMPLICATIONS: None PMHx - PAST MEDICAL HISTORY Diagnosis Date - BPH (benign prostatic hyperplasia) 09/02/2010 - Colon cancer (HCC) 03/2018 - Esophageal reflux 02/02/2008 - Heart attack (HCC) 04/2017 - Hernia of other specified sites of abdominal cavity without mention of obstruction or gangrene rectal - Renal calculus - Vasomotor rhinitis 09/02/2010 COMORBIDITIES - Obesity, Coagulopathy, CAD, Hx Cardiac Surgery and SC Post Op Occurrences - None Wound Classification - Clean Contaminated Operative note dictated in the [facility] dictation system. Chris Ferreira MD DISCHARGE SUMMARY Observed: 03/24/2018 Status: F Source: [place] 4:03 AM [facility] REPOSITORY [facility] Medical Records Department [address] [place] [address] Discharge Summary 03/24/18 0401 MR#: [id number] Acct: [id number] Name: MYRNA JORGENSEN JrMartha Rep #: [id number] : 1950 68 From: Chris Ferreira MD PCP: Shlomo Dudley DO Status: DIS IN Y Location: MS3 [id number] Discharge Date and Diagnosis Date of Admission: 03/20/18 Date of Discharge: 03/23/18 - Secondary Discharge Diagnosis Chronic Problems (Last Reviewed 03/14/18 @ 14:28 by Yonathan Pozo DO) transverse colon cancer S/P PTCA (percutaneous transluminal coronary angioplasty) (Chronic) Hyperlipemia, mixed (Chronic) Essential (primary) hypertension (Chronic) 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 He was found of a mid transverse colon cancer. He was discharged from the hospital last week had appropriate workup and was found to have no signs of metastatic disease. He returned for laparoscopic extended right hemicolectomy performed on March 20 after he had been off his anticoagulation for 5 days. Surgery was somewhat protracted due to the location of the tumor and rather significant mobilization of the transverse colon was required. The patient did well postoperatively had return of bowel function and tolerating a diet by postoperative day 3. He was discharged home with plans to follow-up in my office. Discharge Activity: Return to Normal Activity May shower in (days): 0 - now Call your doctor if your incision/area has: Increased Pain/ Swelling, Increased Redness, Foul Smelling Discharge, Swelling at the incision site Call your doctor if you observe: Fever of 101 or Higher, Inability to urinate, Inability to have a bowel movement, Uncontrolled pain Home Medications: Medications to take at Discharge Psyllium [Metamucil] 1 packet PO DAILY 05/13/17 Rabeprazole Sodium [Aciphex] 20 mg PO BID 05/13/17 Tamsulosin HCl [Flomax] 0.4 mg PO QHS 05/13/17 atorvastatin 80 mg tablet 80 mg PO QHS 08/24/17 Glucosamine/MSM/Chondroitin A [Glucosamine Chondroit MSM Tab] 1 each PO DAILY 03/14/18 Aspirin E.C. [Ecotrin] 81 mg PO DAILY@0800 03/19/18 Isosorbide Mononitrate [Imdur] 30 mg PO DAILY 03/19/18 Lisinopril [Zestril] 20 mg PO DAILY 03/19/18 Metoprolol Tartrate [Lopressor (beta mandeep)] 25 mg PO BID 03/19/18 Fluticasone 0.05% [Flonase Nasal [place]] 2 spray NASAL QHS nasal.sry 03/23/18 Ibuprofen [Motrin] 400 mg PO Q4H PRN PRN tablet 03/23/18 Primary Care Physician: Shlomo Dudley DO [Primary Care Provider] - Please Follow Up With: Chris Ferreira MD When: Monday or Medical Necessity - Tobacco Use Smoking Status: Never smoker Meaningful Use Info Meaningful Use Diagnoses (Choose all that apply): None applicable 03/24/18 5943 <Electronically signed by Chris Ferreira MD> Date Chris Ferreira MD Cosigner Signature (if applicable): Date CC: Chris Ferreira MD; Shlomo Dudley DO Signed DISCHARGE INSTRUCTION Observed: 03/23/2018 Status: F Source: [place] 1:40 PM [facility] REPOSITORY [facility] Medical Records Department [address] [place] [address] Instructions for Home/Discharge Instructions 03/23/18 1339 MR#: [id number] Acct: [id number] Name: MYRNA JORGENSEN Jr. Rep #: [id number] : 1950 68 From: Chris Ferreira MD PCP: Shlomo Dudley DO Status: ADM IN You will use the following diet at home:: Full liquid - for a few days, then advance to regular Discharge Activity: Return to Normal Activity May shower in (days): 0 - now Call your doctor if your incision/area has: Increased Pain/ Swelling, Increased Redness, Foul Smelling Discharge, Swelling at the incision site Call your doctor if you observe: Fever of 101 or Higher, Inability to urinate, Inability to have a bowel movement, Uncontrolled pain Allergies/Adverse Reactions: Allergies omeprazole [From Prilosec] Adverse Reaction (Verified 03/19/18 11:59) lowers WBCs Medications to take at Discharge Psyllium [Metamucil] 1 packet PO DAILY 05/13/17 Rabeprazole Sodium [Aciphex] 20 mg PO BID 05/13/17 Tamsulosin HCl [Flomax] 0.4 mg PO QHS 05/13/17 atorvastatin 80 mg tablet 80 mg PO QHS 08/24/17 docusate sodium 100 mg capsule 100 mg PO BID 08/25/17 triamcinolone acetonide 55 mcg/actuation nasal spray,aerosol 2 spray INTRANASAL QHS 08/25/17 Glucosamine/MSM/Chondroitin A [Glucosamine Chondroit MSM Tab] 1 each PO DAILY 03/14/18 Polyethylene Glycol 3350 [Miralax] 17 gm PO DAILY 03/14/18 Aspirin E.C. [Ecotrin] 81 mg PO DAILY@0800 03/19/18 Isosorbide Mononitrate [Imdur] 30 mg PO DAILY 03/19/18 Lisinopril [Zestril] 20 mg PO DAILY 03/19/18 Metoprolol Tartrate [Lopressor (beta mandeep)] 25 mg PO BID 03/19/18 Primary Care Physician: Shlomo Dudley DO [Primary Care Provider] - Test Results: Test results from this visit will be discussed in further detail at your follow-up appointment, if applicable. Please Follow Up With: Chris Ferreira MD When: Monday or 03/23/18 1340 <Electronically signed by Chris Ferreira MD> Date Chris Ferreira MD CC: Shlomo Dudley DO COMPREHENSIVE METABOLIC Collected: 03/21/2018 Status: F Source: [place] PROFIL 5:28 AM [facility] REPOSITORY TYPE CODE TESTS RESULT OUT OF RANGE REFERENCE UNITS LAB L501.0100 74-106 mg/dL High GLU 124 Result Comment: Fasting Glucose result from 100 to 125 mg/dL suggests IMPAIRED HOMEOSTASIS per A.D.A. criteria. Please note revised GLUCOSE reference range effective 2017. LAB L501.1000 7-18 mg/dL Normal BUN 9 LAB L501.1100 0.70-1.30 mg/dL Normal CREAT,SERUM 1.27 Result Comment: The validity of the calculated GFR AND GFRAA in patients over 70 years has not been determined. Clinical correlation is essential. LAB L501.1110 >60 mL/min Normal EST GFR 60 Result Comment: Non- GFR Calc LAB L501.1115 >60 mL/min Normal EST GFR - AA 73 Result Comment: GFR Calc LAB L501.1255 ml/min Normal Estimated CRCL 60.11 LAB L501.1300 10-20 RATIO Low BUN/CRE 7.1 LAB L501.1500 6.4-8. g/dL Normal 2 T PROT 6.5 LAB L501.1800 3.2-5. g/dL Normal 0 ALB 3.3 LAB L501.1950 2.2-4. g/dL Normal 2 GLOB 3.2 LAB L501.2000 0.9-2. RATIO Normal 4 A/G 1.0 LAB L501.2200 8.5-10 mg/dL Low .1 CA 8.2 LAB L501.4100 15-37 U/L Normal AST 15 LAB L501.4305 45-117 U/L Normal ALK P 60 LAB L501.4405 16-61 U/L Normal ALT 25 LAB L501.4600 0.20-1 mg/dL Normal .00 T BILI 0.60 LAB L501.5300 136-14 mmol/L Normal 5 NA 141 LAB L501.5600 3.5-5. mmol/L Normal 1 K 3.6 LAB L501.5900 98-107 mmol/L Normal CL 105 LAB L501.6100 21.0-3 mmol/L Normal 2.0 CO2 27.0 LAB L501.6200 5-15 Normal GAP 9 Performed By: #### L500.4050 #### [facility] [address], [address] CBC W/DIFF, AUTOMATED Collected: 03/21/2018 Status: F Source: [place] 5:28 AM [facility] REPOSITORY TYPE CODE TESTS RESULT OUT OF RANGE REFERENCE UNITS LAB L100.1000 4.4-11.0 K/mm3 Normal WBC 9.5 LAB L100.1200 4.6-6.2 M/mm3 Low RBC 3.07 LAB L100.1300 13.0-16.5 g/dl Low HGB 9.1 LAB L100.1400 40-54 % Low HCT 27.3 LAB L100.1500 80-94 fL Normal MCV 88.9 LAB L100.1600 27.0-32.0 pg Normal MCH 29.6 LAB L100.1700 32-36 g/gl Normal MCHC 33.3 LAB L100.1810 11.6-14.6 % Normal RDW CV 12.6 LAB L100.1820 35.1-43.9 fl Normal RDW SD 39.1 LAB L100.1900 150-450 K/mm3 Normal PLT 185 LAB L100.2000 6.2-12.0 fl Normal MPV 8.7 LAB L100.2100 47-70 % High NEUT% 80.6 LAB L100.2200 19-41 % Low LY% 5.5 LAB L100.2300 0-10 % High MONO% 13.8 LAB L100.2400 0-5 % Normal EO% 0.0 LAB L100.2500 0-1 % Normal BASO% 0.0 LAB L100.2550 0.0-0.9 % Normal IM GRAN % 0.100 Result Comment: IG% - Immature Granulocytes (promyelocytes, myelocytes and metamyelocytes) > 1% indicates that a LEFT SHIFT is Present. LAB L100.2620 2.0-7.7 X10 3/uL Normal Absolute Neut 7.7 LAB L100.2720 0.83-4.51 X10 3/ul Low Absolute Lymph 0.52 Performed By: #### L100.0100 #### [facility] [address] [facility] [place], [address] OPERATIVE REPORT Observed: 03/20/2018 Status: F Source: [place] 8:00 PM [facility] REPOSITORY [facility] Medical Records Department [address] [place] [address] Operative Report 03/20/18 1408 MR#: [id number] Acct: [id number] Name: MYRNA JORGENSEN Jr. Rep #: [id number] : 1950 68 From: Chris Ferreira MD PCP: Shlomo Dudley DO Status: ADM IN Y Location: [facility] [place] [id number] Report of Operation Date of Procedure: 03/20/18 Pre-Operative Diagnosis: transverse colon cancer Post-Operative Diagnosis: transverse colon cancer - mid to left of midline transverse colon, small umbilical hernia Surgery/Procedure Performed:: laparoscopic extended right hemicolectomy Description of Surgical Findings:: as above senior systems analyst: Shirin Cheng Type of Anesthesia:: General Anesthesiologist: Yonathan Denny - ASA3 Specimen's removed: hernia sac, extended right colon Drains: none Estimated Blood Loss (mL): 125 Fluids Replaced: 1999 Description of Procedure: The patient was brought to the operating suite. Sign in was performed verifying patient, site, procedure, position, and DVT prophylaxis with SCDs. Patient 2 g of cefotetan. Preoperative bowel prep of mechanical and antibiotic comprised of GoLYTELY and then neomycin and Flagyl 1 g 3 doses evening before was given. Following induction of general anesthetic. The patient s abdomen was prepped and draped in the usual fashion. Timeout was performed verifying patient, site, position. Local anesthetic was injected below the umbilicus. Incision made and dissection carried down to the umbilical root fascia. 2 stay sutures were placed. Incision made in the fascia, the peritoneum entered under direct visualization. A 10 mm Valladares trocar was inserted and secured with the stay sutures. Pneumoperitoneum to 15 mmHg was insufflated. Visual inspection revealed no abnormalities in the liver. The area of tattooing of the tumor was noted to be to the left of the midline by a about 3 cm. 2 5mm ports were placed in the standard midline position and an additional foam was placed in the left upper quadrant. Mobilization the avascular plane was undertaken from the base of the cecum up and around the hepatic flexure. Division of the lesser sac from the midline to the hepatic flexure was undertaken. When this was fully mobilized, the duodenum was visualized from the right flank region. Following this, division of the gastrocolic omentum was undertaken starting to the left of the tumor site and progressing from that left upper quadrant area across the midline, connecting finally to the mobilization at the site of the hepatic flexure. Care was taken to avoid injury of the middle colic vessel, the stomach, and the gastroduodenal vessels Next, the terminal ileum area was brought up and a cleavage point noted in the mesentery. Harmonic Scalpel was used to create a window in the terminal ileal mesentery and division was taken down to the ileocolic root. Next the transverse colon was grasped and the vasculature coming from the middle colic vessel was identified. A window was made in the bare area proximal to the middle colic vessels just overlying the duodenal sweep. This was also fully divided. Dissection was then carried out at the ileal colic vessel root. The artery and vein were identified and doubly clipped proximally and doubly clipped distally with Hem-o-venita clips. The tumor in the mid transverse colon was noted to be just beyond the abdominal midline to the left of midline. There was noted to be a branch of the middle colic vessel which seemed takeoff directly towards the splenic flexure. This branch was protected. Dissection was continued, dividing the transverse mesocolon at the planned point of colonic transection down to the branches of the middle colic going to the middle transverse colon at the site of the tumor. Again, connecting all the way to the previous dissected area towards the ileocolic branch. Vessels were doubly clipped proximally and singly clipped distally with Hem-o-venita clips. With full dissection of the mesentery and full mobilization the colon, the umbilical incision was extended and a wound protector placed. The terminal ileum and cecum ascending colon and extended transverse colon were delivered through the wound protector. Complete division of the mesentery to the bowel was undertaken at both sites. The bowel was transected with an intestinal load echelon stapler. On this a functional stapled end-to-end anastomosis was performed between the ileum and transverse colon with an echelon stapler. The staple line was checked for hemostasis and following this the anastomosis closed with a TA stapler creating a wide triangle opening that was easily palpable. A 3-0 silk suture was used to take tension off the apex of the staple line and Betadine painted on the TA staple line. At this point, the specimen was opened on the back table. There was noted to be tumor in the expected location. Gown and gloves were changed. Pneumoperitoneum was reestablished. There was good anatomic positioning of the small bowel. It was good hemostasis along the incisions. Pneumoperitoneum was released. The midline/supraumbilical fascial defect was closed with a running 0 PDS suture. Pneumoperitoneum was reestablished. The 5mm ports were removed under direct visualization with no signs of bleeding. Pneumoperitoneum was released. Subcutaneous fat reapproximated with interrupted 3-0 Vicryl sutures. Skin was closed with interrupted 4-0 Monocryl subcuticular sutures. Steri-Strips and bandages were applied. The patient was brought to recovery room in stable condition. - Admit VTE Documentation VTE Present on Admission: No VTE Mechan Device Prophylaxis: SCD's VTE Pharm Prophylaxis ordered?: Yes 03/20/181999 <Electronically signed by Chris Ferreira MD> Date Chris Ferreira MD CC: Chris Ferreira MD; Shlomo Dudley DO Signed CBC W/DIFF, AUTOMATED Collected: 03/20/2018 Status: F Source: [place] 2:40 PM [facility] REPOSITORY TYPE CODE TESTS RESULT OUT OF RANGE REFERENCE UNITS LAB L100.1000 4.4-11.0 K/mm3 Normal WBC 7.0 LAB L100.1200 4.6-6.2 M/mm3 Low RBC 3.13 LAB L100.1300 13.0-16.5 g/dl Low HGB 9.2 LAB L100.1400 40-54 % Low HCT 27.6 LAB L100.1500 80-94 fL Normal MCV 88.2 LAB L100.1600 27.0-32.0 pg Normal MCH 29.4 LAB L100.1700 32-36 g/gl Normal MCHC 33.3 LAB L100.1810 11.6-14.6 % Normal RDW CV 12.9 LAB L100.1820 35.1-43.9 fl Normal RDW SD 41.5 LAB L100.1900 150-450 K/mm3 Low PLT 142 LAB L100.2000 6.2-12.0 fl Normal MPV 8.6 LAB L100.2100 47-70 % High NEUT% 91.1 LAB L100.2200 19-41 % Low LY% 4.7 LAB L100.2300 0-10 % Normal MONO% 4.1 LAB L100.2400 0-5 % Normal EO% 0.0 LAB L100.2500 0-1 % Normal BASO% 0.1 LAB L100.2550 0.0-0.9 % Normal IM GRAN % 0.000 Result Comment: IG% - Immature Granulocytes (promyelocytes, myelocytes and metamyelocytes) > 1% indicates that a LEFT SHIFT is Present. LAB L100.2620 2.0-7.7 X10 3/uL Normal Absolute Neut 6.4 LAB L100.2720 0.83-4.51 X10 3/ul Low Absolute Lymph 0.33 LAB L100.4500 SMEAR Normal COMMENT Result Comment: SLIDE SCANNED - LYMPHOPENIA NOTED. Performed By: #### L100.0100 #### [facility] [address] [place], [place], [id number] TYPE AND SCREEN Collected: 03/20/2018 Status: F Source: [place] 8:55 AM [facility] REPOSITORY Order Comment: Reason for Type AND Screen/Red Cells: SURGERY TYPE CODE TESTS RESULT OUT OF RANGE REFERENCE UNITS LAB B10.0800 O Normal BLOOD TYPE GEL POSITIVE LAB B100.4000 Normal Antibody NEGATIVE Screen Performed By: #### B101.7450 #### [facility] [address] [place], [address] CARCINOEMBRYONIC ANTIGEN Collected: 03/20/2018 Status: F Source: [place] 8:55 AM [facility] REPOSITORY TYPE CODE TESTS RESULT OUT OF RANGE REFERENCE UNITS LAB L3100.2300 0.0-4.7 ng/mL Normal CEA 2.1 Result Comment: Tian ECLIA methodology Nonsmokers <3.9 Smokers <5.6 Performed at: [address] [id number] Exploration Geologist: Fareed Shane PhD, Phone: [phone] Performed By: #### L3100.2300 #### [facility] (refer to report for specific site) refer to report for address and phone number CBC W/DIFF, AUTOMATED Collected: 03/20/2018 Status: F Source: [place] 7:30 AM [facility] REPOSITORY TYPE CODE TESTS RESULT OUT OF RANGE REFERENCE UNITS LAB L100.1000 4.4-11.0 K/mm3 Low WBC 4.2 LAB L100.1200 4.6-6.2 M/mm3 Low RBC 3.46 LAB L100.1300 13.0-16.5 g/dl Low HGB 10.2 LAB L100.1400 40-54 % Low HCT 30.6 LAB L100.1500 80-94 fL Normal MCV 88.4 LAB L100.1600 27.0-32.0 pg Normal MCH 29.5 LAB L100.1700 32-36 g/gl Normal MCHC 33.3 LAB L100.1810 11.6-14.6 % Normal RDW CV 13.1 LAB L100.1820 35.1-43.9 fl Normal RDW SD 41.8 LAB L100.1900 150-450 K/mm3 Normal PLT 183 LAB L100.2000 6.2-12.0 fl Normal MPV 8.8 LAB L100.2100 47-70 % High NEUT% 78.0 LAB L100.2200 19-41 % Low LY% 12.0 LAB L100.2300 0-10 % Normal MONO% 8.2 LAB L100.2400 0-5 % Normal EO% 1.4 LAB L100.2500 0-1 % Normal BASO% 0.2 LAB L100.2550 0.0-0.9 % Normal IM GRAN % 0.200 Result Comment: IG% - Immature Granulocytes (promyelocytes, myelocytes and metamyelocytes) > 1% indicates that a LEFT SHIFT is Present. LAB L100.2620 2.0-7.7 X10 3/uL Normal Absolute Neut 3.2 LAB L100.2720 0.83-4.51 X10 3/ul Low Absolute Lymph 0.50 LAB L100.4500 Normal SMEAR COMMENT COMMENT Result Comment: SLIDE SCANNED - LYMPHOPENIA NOTED. Performed By: #### L100.0100 #### [facility] [address] [place], [address] CNOP Observed: 03/20/2018 Status: COMPLETED Source: [place] 12:[address] [facility] REPOSITORY Operative Note (Enc) (GENSWS) Progress Notes: Chris Ferreira MD 03/25/2018 9:32 AM Signed OPERATIVE NOTATION FOR [facility] SURGICAL PROCEDURE. March 20, 2018 Myrna Jorgensen 1950 [id number] male PROCEDURE: Laparoscopic colectomy partial right hemicolectomy- [id number] SURGEON: Souleymane Ferreira M.D. FACS MEDICAL SUPERINTENDENT: [facility] DEPT: WQ PROVIDER: [id number] Ferreira MD POS: [id number]=[id number] DIAGNOSIS: (C18.4) Malignant neoplasm of transverse colon (HCC) (primary encounter diagnosis) ASA CLASS: 3 - Severe FINDINGS: extended right hemicolectomy COMPLICATIONS: None PMHx - PAST MEDICAL HISTORY Diagnosis Date - BPH (benign prostatic hyperplasia) 09/02/2010 - Colon cancer (HCC) 03/2018 - Esophageal reflux 02/02/2008 - Heart attack (HCC) 04/2017 - Hernia of other specified sites of abdominal cavity without mention of obstruction or gangrene rectal - Renal calculus - Vasomotor rhinitis 09/02/2010 COMORBIDITIES - Obesity, Coagulopathy, CAD, Hx Cardiac Surgery and SC Post Op Occurrences - None Wound Classification - Clean Contaminated Operative note dictated in the [facility] dictation system. Chris Ferreira MD Encounter Status:Closed by CHRIS FERREIRA MD on 03/25/18 COLON (NEOPLASM) Observed: 03/20/2018 Status: F Source: [place] 12:00 AM [facility] REPOSITORY Patient: MYRNA JORGENSEN Jr. : 1950 (68/M) Acct Num: [id number] Phys: Chris Ferreira MD Unit Num: [id number] Loc: MS3 [id number] Specimen: [id number] Received: 03/20/181444 Spec Type: COLON TISSUES TISSUES: A. Colon, NOS B. HERNIA COMMENT COLON CANCER SUMMARY: Specimen right colon Procedure right hemicolectomy Tumor site right colon Tumor size 2.5 x 2 x 0.5 cm Macroscopic tumor perforation not identified Histologic type - adenocarcinoma Histologic grade low-grade (moderately differentiated) Microscopic tumor extension tumor invades through the muscularis propria to the subserosal adipose tissue. Tumor is located 3 cm from its closest (distal) mucosal margin of excision. Margins: Proximal margin uninvolved by invasive carcinoma. Distal margin - uninvolved by invasive carcinoma. Circumferential or mesenteric margin - uninvolved by invasive carcinoma. Treatment effect - unknown Lymph-Vascular invasion not identified. Perineural invasion not identified Tumor deposits - not identified Lymph nodes: Number of lymph nodes examined - 39 Number of lymph nodes involved - 1 Additional pathologic findings largest polyp close to ileocecal valve with focal high-grade dysplasia. Two smaller polyps tubular adenoma Appendix fibrous obliteration of distal appendix and focal hyperplastic mucosal change. Ancillary studies: Microsatellite instability - Negative (no loss of mismatch protein; no microsatellite instability detected). Immunohistochemistry studies for mismatch repair proteins: MLH1 - Intact nuclear positivity, tumor cells MSH2 - Intact nuclear positivity, tumor cells MSH6 - Intact nuclear positivity, tumor cells PMS2 - Intact nuclear positivity, tumor cells PATHOLOGIC STAGE: pT3 N1a Mx The above summary is in compliance with [employer] [place] Pathology (CAP) Cancer Protocols Checklist and [place] Joint Committee on Cancer (AJCC), Staging Manual, 8th Ed. Case has been reviewed in consultation with Dr. Bocanegra who concurs with the above diagnosis. IDC:SJ GROSS DESCRIPTION A - Received in fixative is one container labeled with the patient's name and designated right colon. The specimen consists of a 24 cm segment of large bowel with attached 8.5 cm of small bowel and attached 8 cm of appendix that has an average diameter of 1 cm. Located approximately 3 cm from the distal margin of resection is a firm, indurated and ulcerated mass measuring 2.5 x 2 x 0.5 cm. A metallic endoscopic clip is attached to the mucosa adjacent to the mass. The remainder of the small and large bowel mucosa is thrown into normal folds. Located 3 cm distal to the ileocecal valve is a larger polyp measuring 2 x 1.5 x 0.5 cm. The serosal surface in area of this larger polyp is inked in blue ink. Small polyps ranging in size from 0.2 to 0.5 cm are present at a distance of 4 and 7 cm proximal to the mass, respectively. Sections of the appendix do not reveal mass lesions. The serosal surface in area of mass is inked in black ink. Also present free in the container are two irregular segments of becker, glistening mucosa ranging in size from 2.5 to 4 cm. No mass lesions are identified in these mucosal fragments. The attached fibrofatty tissue contains a number of grossly unremarkable lymph nodes. Also present attached to the specimen is a portion of omentum measuring 29 x 13 x 4 cm. Serial sections of the omentum does not reveal mass lesions. Sections are submitted as follows: 1 - Family Life Counselor sections of small fragments of bowel free in container, 2 proximal and distal mucosal margins, 3 appendix, 4 ileocecal valve, 5 largest polyp closest to ileocecal valve, 6 smaller polyps, 7-11 mass, totally submitted, 12-19 multiple lymph nodes in each cassette. B - Received in fixative is one container labeled with the patient's name and designated umbilical hernia sac. The specimen consists of an irregular fragment of becker-yellow fibrofatty tissue measuring 5.6 x 3.5 x 1.5 cm. Sections do not reveal mass lesions. Family Life Counselor sections are submitted in one cassette. / AM:claudio 03/22/18 TC:0 CPT: 56351, 82409 HEADER OPERATION: Laparoscopic right hemicolectomy PRE-OP DIAGNOSIS: Malignant neoplasm of transverse colon TISSUE SUBMITTED: A. Right colon, B. Umbilical hernia sac MICROSCOPIC DESCRIPTION Slides are reviewed. MICROSCOPIC DIAGNOSIS A. Right colon, hemicolectomy: Invasive adenocarcinoma. See complete cancer checklist below. B. Soft tissue of umbilical region, excision: Fragment of fibrofatty tissue with mild fibrosis consistent with hernia sac. No evidence of malignancy. AM:claudio 03/26/18 Signed August Riojas 03/26/18 <signature on file> Performed By: #### PCOL. #### [facility] [address], [address] IMMUNOHISTOCHEMISTRY Observed: 03/20/2018 Status: F Source: [place] 12:00 AM [facility] REPOSITORY Patient: MYRNA JORGENSEN Jr. : 1950 (68/M) Acct Num: [id number] Phys: Chris Ferreira MD Unit Num: [id number] Loc: MS3 QN927-2 Specimen: [id number] Received: 03/26/18931 Spec Type: IMMUNO TISSUES TISSUES: A. Right colon - #25 SPECIMEN INFORMATION: Tissue Source: A Right colon Clinical Info: Malignant neoplasm of transverse colon Specimen Number: [id number] #25 CPT code: 44534, 17215 x9 METHODOLOGY: Deparaffinized sections of prefer/formalin-fixed tissue or PAP/DQ stained slides are incubated with monoclonal/polyclonal antibodies/oligonucleotide probes. Localization is made via biotin free immunoperoxidase method. Appropriate controls are performed and reacted as expected. Results on target cell population are indicated in the following table: RESULTS: ANTIBODY / CLONE RESULT Block 25 COLON CANCER PROFILE (Prognostic Markers) Ki-67 (30-9) positive, moderate P53 (DO-7) positive, >50% MSH2 (25D12) positive MSH6 (44) positive MLH-1 (M1) positive PMS2 (CGZ0385) negative DUFFY-2 (SP21) positive Her-2neu (CB11) negative CD31 (MELITA/70A) negative Factor VIII (R Ag) negative These tests were developed and their performance characteristics determined by [facility]. They may not have been cleared or approved by the U.S. Food and Drug Administration. The FDA has determined that such clearance or approval is not necessary. INTERPRETATION: Right colon, hemicolectomy: Invasive adenocarcinoma. Result of Microsatellite Instability Study: Negative (no loss of mismatch protein; no microsatellite instability detected). AM:claudio 03/27/18 PHYSICIAN AND INSTITUTION [address] [address] Signed August Riojas 03/29/18 <signature on file> Performed By: #### PIMM #### [facility] [address] [place] [address]. [place], [place], [id number] 12 LEAD ELECTROCARDIOGRAM Observed: 03/19/2018 Status: F Source: [place] 3:17 PM [facility] REPOSITORY [facility] Cardiovascular Services [address] [place] [address] 12 Lead EKG 03/16/18 0519 MR#: [id number] Acct: [id number] Name: MYRNA JORGENSEN Jr. Rep #: [id number] : 1950 68 From: Kwaku Owusu MD Attending Dr: Yonathan Pozo DO Status: DIS IN Ordering Dr: Esteban Grigsby MD Date: 03/16/18 Location: [facility] Sex: M C Admitted: 03/14/18 Test Reason : AM EKG Blood Pressure : / mmHG Vent. Rate : 069 BPM Atrial Rate : 069 BPM P-R Int : 164 ms QRS Dur : 102 ms QT Int : 404 ms P-R-T Axes : 059 031 008 degrees QTc Int : 432 ms Normal sinus rhythm Normal ECG When compared with ECG of 05-JUN-2017 04:26, Premature ventricular complexes are no longer Present Confirmed by KWAKU OWUSU MD ([id number]), state editor ALMA DELIA MORA ([id number]) on 03/19/2018 3:16:52 PM Referred By: ROBERTH Confirmed By:KWAKU OWUSU MD 03/19/18 1516 Date Kwaku Owusu MD CC: Yonathan Pozo DO; Esteban Grigsby MD; Shlomo Dudley DO Signed PROGRESS Observed: 03/19/2018 Status: COMPLETED Source: [place] 10:[address] [facility] REPOSITORY HNO ID: [id number] Author: Chris Tere Ferreira Service: (none) Author Type: Physician Type: Progress Notes Filed: 03/19/2018 11:08 AM Note Text: HISTORY AND PHYSICAL - COLON RESECTION FOR MID TRANSVERSE COLON CANCER Myrna Hudson Jorgensen 1950 March 19, 2018 REFERRING PHYSICIAN: Dr. Dudley CHIEF COMPLAINT: Rectal bleeding HPI: The patient is a 68 year old male with a complaint of rectal bleeding. The patient has a history of coronary artery disease. He had 2 stents placed last April. He is chronically on Plavix and aspirin. The patient presented to [facility] last week with rectal bleeding. He was admitted to the medicine service. A CT scan of the abdomen and pelvis was obtained which demonstrated no specific abnormalities in the liver. There was felt to be thickening in the mid transverse colon. My partner, Lorenza Cueva was consulted. She performed upper and lower endoscopy on March 15, 2018. Upper endoscopy demonstrated very mild antritis and benign gastric fundic polyps. Colonoscopy was performed and at the mid transverse colon a fungating mass was identified. Multiple biopsies were obtained. Luis ink was injected for identification and a clip was placed to better localize this abnormality. Postprocedure KUB was obtained which demonstrated the clip just to the right of the midline vertebral structures. Pathology returned this morning. Pathology demonstrated: MICROSCOPIC DIAGNOSIS A. Antral biopsy: Mild gastritis. B. Gastric polyp, biopsy: Fundic gland polyp. C. Transverse colon mass, biopsy: Invasive moderately differentiated adenocarcinoma. See comment. The patient was seen in the hospital by his bladder tier, Dr. Esteban Grigsby. Dr. Grigsby felt that overall, the patient was a reasonable risk for surgical intervention locally. He was comfortable holding both his aspirin and his plavix. The patient's last dose of Plavix was Monday. PAST MEDICAL HISTORY Diagnosis Date - BPH (benign prostatic hyperplasia) 09/02/2010 - Colon cancer (HCC) 03/2018 - Esophageal reflux 02/02/2008 - Heart attack (HCC) 04/2017 - Hernia of other specified sites of abdominal cavity without mention of obstruction or gangrene rectal - Renal calculus - Vasomotor rhinitis 09/02/2010 PAST SURGICAL HISTORY Procedure Laterality Date - PAST SURGICAL HISTORY OF Right 1979 detatched retina - PAST SURGICAL HISTORY OF removal of kidney stone - PAST SURGICAL HISTORY OF 1979 rectal surgery? - PRQ CARDIAC STENT W/ANGIO 1 VSL 04/2017 Current Outpatient Prescriptions: docusate sodium (COLACE) 100 mg capsule Take 100 mg by mouth twice daily. Disp: Rfl: triamcinolone acetonide (NASACORT AQ) 55 mcg nasal inhaler Use 2 Sprays in the nose once daily. Disp: Rfl: aspirin, enteric coated (ECOTRIN LOW STRENGTH) 81 mg EC tablet Take 81 mg by mouth once daily. Disp: Rfl: atorvastatin (LIPITOR) 80 mg tablet Take 80 mg by mouth once daily. Disp: Rfl: isosorbide mononitrate ER (IMDUR) 30 mg 24 hr tablet Take 30 mg by mouth once daily. Disp: Rfl: lisinopril (ZESTRIL) 20 mg tablet Take 20 mg by mouth once daily. Disp: Rfl: metoprolol tartrate, short acting, (LOPRESSOR) 25 mg tablet Take 25 mg by mouth twice daily. Disp: Rfl: polyethylene glycol 3350 (MIRALAX ORAL) Take 1 scoop by mouth once daily. Disp: Rfl: OTC NUTRITIONAL SUPPLEMENT once daily. Glucosamine/chondroitin 1500/1200mg Disp: Rfl: tamsulosin ER (FLOMAX) 0.4 mg cp24 Take 1 capsule by mouth daily at bedtime. Disp: 90 capsule Rfl: 0 RABEprazole (ACIPHEX) 20 mg tablet Take 1 tablet by mouth once daily. (Patient taking differently: Take 20 mg by mouth twice daily. ) Disp: 90 tablet Rfl: 0 Miralax / Gatorade Prep Miralax 238 gm bottle, (2) 32 oz bottles of Gatorade, AND 4 Dulcolax 5 mg tabs- as directed per instructions Disp: Rfl: neomycin 500 mg tablet Take 2 tablets by mouth four times daily. 2 TABLETS AT 6, 8 ,AND 10 PM Disp: 6 tablet Rfl: 0 metroNIDAZOLE (FLAGYL) 500 mg tablet Take 1 tablet by mouth three times daily. 2 TABLETS AT 6, 8, AND 10 PM Disp: 6 tablet Rfl: 0 Hydrochlorothiazide 12.5 mg capsule Take 1 capsule by mouth once daily. (Patient not taking: Reported on 03/19/2018 ) Disp: 90 capsule Rfl: 0 mometasone (NASONEX) 50 mcg/actuation nasal spray 2 puffs in each nostrils daily (Patient not taking: Reported on 03/19/2018 ) Disp: 3 Bottle Rfl: 3 methylPREDNISolone (MEDROL, MELODY,) 4 mg tablet Follow dosing instructions, take by mouth with food. (Patient not taking: Reported on 03/19/2018 ) Disp: 1 Package Rfl: 0 No current facility-administered medications for this visit. Last Plavix dose was Monday evening ALLERGIES: Prilosec [Omeprazole] PERSONAL HISTORY: Social History Marital status: Spouse name: Years of education: Number of children: Social History Main Topics Smoking status: Never Smoker Smokeless tobacco: Never Used Alcohol use: No Drug use: No FAMILY HISTORY: FAMILY HISTORY Problem Relation Age of Onset - Heart Mother ASHD,valve disease - Ischemic Heart Disease Father 80 - Hypertension Father - Diabetes Father - Ischemic Heart Disease Sister - None Sister - None Sister - None Sister REVIEW OF SYMPTOMS: The review of systems data was entered by the nurse and reviewed by ok Nursing Notes: Maribeth Carrizales RN 03/19/2018 9:26 AM Signed REVIEW OF SYSTEMS: General: The patient denies fatigue, denies weight loss, denies weight gain, denies feeling hot, and denies feelings of cold. Eyes: The patient denies glaucoma, NOTES eye injury/surgery, wears glasses or contacts. Ear/Nose/Throat: The patient NOTES allergies, denies hayfever, denies ear infections, and denies bloody noses. Cardiovascular: The patient denies chest pain, NOTES heart disease, denies high blood pressure,NOTES cardiac stent, NOTES prior heart attack, denies irregular heart beat, denies high cholesterol, denies poor circulation, denies heart failure, other cardiac issues, denies claudication, denies cold feet, denies peripheral arterial stent. Respiratory: The patient denies tuberculosis, denies pneumonia, denies frequent cough, denies pulmonary embolism, denies shortness of breath, and denies coughing up blood. Gastrointestinal: The patient denies difficulty swallowing, denies acid reflux, denies ulcers, denies vomiting, denies jaundice/hepatitis, denies gallbladder problems, denies black or tarry stools, denies hemorrhoids, NOTES bleeding from rectum, denies diverticulitis, denies constipation, denies diarrhea, denies loss of stool control, and denies hernias. Kidney/Bladder: The patient notes kidney stones, denies urine infections, and denies bloody urine. Skin: The patient denies a history of skin cancer, denies bleeding/changing moles, and denies a history of skin rash. Neurologic: The patient denies a history of epilepsy/convulsions, denies headaches, denies head/spinal injuries, and denies stroke/TIA. Psychiatric: The patient denies psychiatric medications, denies depression, and denies voices, denies substance abuse. Endocrine: The patient denies thyroid disorders, denies diabetes, and denies hormonal problems. Hematologic: The patient denies a history of bruising, denies bleeding, and denies anemia, denies blood clots. Infections: The patient denies a history of measles and mumps, denies rheumatic fever, and denies sexually transmitted diseases. Musculoskeletal: The patient denies back pain/injury, notes back problems, notes sciatica, denies knee/foot trouble, denies arthritis, or denies gout. When was patient's last Mammogram screening? N/A Last Colonoscopy: 02/2018 Maribeth Carrizales RN PHYSICAL EXAMINATION: General: The patient is 68 year old male, well nourished, well hydrated in no acute distress. The patient is oriented to time, place, and person. VITALS: BP 120/70 (BP Site: Right Arm, BP Position: Sitting, BP Cuff Size: Large Adult) Pulse 66 Temp 36.9 ?C (98.4 ?F) Ht 180.3 cm (5' 11) Wt 103.4 kg (228 lb) BMI 31.80 kg/m? Body mass index is 31.8 kg/m?. HEENT: Normal cephalic, ataumatic, pupils are equally round, sclera are anicteric, mucous membranes are moist, oropharynx is clear. Neck has no masses, asymmetry or lymphadenopathy. Thyroid is unremarkable. Respiratory: Clear to auscultation and percussion. Normal respiratory excursion and pattern. Cardiac: Examination is regular rate and rhythm. Abdominal exam: Soft, nontender, with no palpable masses. No hepatosplenomegaly. A small nonreducible umbilical hernia, no obvious inguinal hernias. Rectal exam: exam deferred Extremities: no clubbing, cyanosis or edema. No adenopathy. LABORATORY VALUES: As Noted RADIOLOGIC STUDIES: As Noted Assessment IMPRESSION: Transverse colon cancer PLAN: We extensively discussed the diagnosis and discussed the surgical options. The patient has elected to undergo colon resection I plan to perform a Laparoscopic colectomy partial right hemicolectomy- [id number]. The planned surgical procedure was discussed extensively with the patient. The risks, benefits, anticipated outcomes and possible complications and alternatives were discussed. My staff has also explained the procedure in understandable terms and the patient was given the option to take printed material concerning the planned procedure. The patient had the opportunity to ask questions concerning the planned procedure. The patient freely consents to the planned procedure. I will plan for outpatient bowel preparation including mechanical and antibiotic preparation including Neomycin and Flagyl 1gm each at 6,8, and 10pm the night before surgery. The patient received 1 unit of packed red cells while in the hospital last week. I will repeat a hemoglobin in the morning before surgery and obtain a CEA level. Anticipated Surgical Procedure/ CPT Code: Laparoscopic colectomy partial right hemicolectomy- 75750-237 Anticipated Anesthetic: General Patient weight: Blood pressure 120/70, pulse 66, temperature 36.9 ?C (98.4 ?F), height 180.3 cm (5' 11), weight 103.4 kg (228 lb). BMI: Body mass index is 31.8 kg/m?. Planned antibiotic: Cefotetan 2gm IVPB enterprise application administrator to OR SCDs needed - Yes Business Support Liaison Needed - Yes Diagnoses: (C18.4) Malignant neoplasm of transverse colon (HCC) (primary encounter diagnosis) A letter was sent to Dr. Octavia LUKE indicating the above finding for this patient. Return to Clinic: The patient is instructed to follow-up with me 1 week post operatively. Chris Ferreira MD CNOV Observed: 03/19/2018 Status: COMPLETED Source: [place] 8:[address] [facility] REPOSITORY Office Visit (GENSWS) JEFRYMYRNA ([id number]) 1950 M Date Time Provider Department 03/19/18 8:45 AM CHRIS FERREIRA During your visit today, we recorded the following information about you: Temperature Pulse Blood pressure Weight 98.4 degrees 66/minute 120/70 103.4 kg Height 1.803 m Maribeth Carrizales RN 03/19/2018 9:26 AM Signed REVIEW OF SYSTEMS: General: The patient denies fatigue, denies weight loss, denies weight gain, denies feeling hot, and denies feelings of cold. Eyes: The patient denies glaucoma, NOTES eye injury/surgery, wears glasses or contacts. Ear/Nose/Throat: The patient NOTES allergies, denies hayfever, denies ear infections, and denies bloody noses. Cardiovascular: The patient denies chest pain, NOTES heart disease, denies high blood pressure,NOTES cardiac stent, NOTES prior heart attack, denies irregular heart beat, denies high cholesterol, denies poor circulation, denies heart failure, other cardiac issues, denies claudication, denies cold feet, denies peripheral arterial stent. Respiratory: The patient denies tuberculosis, denies pneumonia, denies frequent cough, denies pulmonary embolism, denies shortness of breath, and denies coughing up blood. Gastrointestinal: The patient denies difficulty swallowing, denies acid reflux, denies ulcers, denies vomiting, denies jaundice/hepatitis, denies gallbladder problems, denies black or tarry stools, denies hemorrhoids, NOTES bleeding from rectum, denies diverticulitis, denies constipation, denies diarrhea, denies loss of stool control, and denies hernias. Kidney/Bladder: The patient notes kidney stones, denies urine infections, and denies bloody urine. Skin: The patient denies a history of skin cancer, denies bleeding/changing moles, and denies a history of skin rash. Neurologic: The patient denies a history of epilepsy/convulsions, denies headaches, denies head/spinal injuries, and denies stroke/TIA. Psychiatric: The patient denies psychiatric medications, denies depression, and denies voices, denies substance abuse. Endocrine: The patient denies thyroid disorders, denies diabetes, and denies hormonal problems. Hematologic: The patient denies a history of bruising, denies bleeding, and denies anemia, denies blood clots. Infections: The patient denies a history of measles and mumps, denies rheumatic fever, and denies sexually transmitted diseases. Musculoskeletal: The patient denies back pain/injury, notes back problems, notes sciatica, denies knee/foot trouble, denies arthritis, or denies gout. When was patient's last Mammogram screening? N/A Last Colonoscopy: 02/2018 Maribeth Ferreira MD 03/19/2018 10:25 AM Addendum SPLIT DOSE MIRALAX-GATORADE PREPARATION Arrive one hour early for your procedure. To ensure a successful exam, please follow all instructions carefully. You MUST arrange a ride for the day of your exam. If you fail to arrange acceptable transportation, your procedure will need to be rescheduled. Please bring a list of all of your current medications, including any Mool-ubo-Bkqnhlf medications with you. DIABETIC PATIENTS Use G2 or (Gatorade 2) Take only ? of your morning dose of insulin or tablets the day before your exam. Do not take any more of your diabetic medications until the procedure is over and you have resumed eating again. Drink regular liquids (not diabetic) and monitor your sugar throughout the day you are on clear liquids. If your sugar gets too low, drink some apple juice. PURCHASE THE FOLLOWING SUPPLIES AT YOUR LOCAL PHARMACY: - 1- 8.3oz bottle Miralax (238 grams) or generic equivalent. - 64 oz. clear liquid (NOT red). Gatorade, G2, Gatorade, G2, Gatorade Ice, PowerAde or PowerAde Zero are acceptable. 7 DAYS BEFORE YOUR COLONOSCOPY: If you take aspirin or NSAIDS such as Advil, Motrin, Celebrex or Ibuprofen, you may continue to take them as usual unless otherwise instructed by your physician. You should discuss this with your physician in advance of the procedure. Ask your doctor for specific instructions if you take a blood thinner like Plavix, Pradaxa, Clopidogrel, Coumadin, Warfarin, Effient, Prasugrel or Lovenox. 3 DAYS BEFORE COLONOSCOPY: Stop eating all nutes, seeds and popcorn. 1 DAY BEFORE YOUR COLONOSCOPY: Begin a clear liquid diet. Drink at least 8 glasses of water during the day to avoid dehydration. At 5pm, take 4 Dulcolax tablets. Mix 64oz. liquid with 8.[address] in the refrigerator (DO NOT ADD ICE) At 6pm, drink 32 oz. of the Miralax/Gatorade solution. 4 hours prior to procedure, drink the remaining 32 oz. of the Miralax/Gatorade solution. Clear Liquid Not Clear Liquid Gatorade, Pedialyte or PowerAde No red items of any kind Clear broth or bouillon No alcohol Coffee or tea (no milk or non-dairy creamer) No milk or non- dairy creamers Carbonated and non-carbonated soft drinks No noodles or vegetables in soup Cortes-Aid or other fruit flavored drinks No juice with pulp Strained fruit juices (no pulp) No liquid you cannot see through Jell-O, popsicles, hard candy No gum or candy DAY OF YOUR COLONOSCOPY: You may take your blood pressure or heart medication with a sip of water up to 3 hours before your procedure. 2 hours before, stop drinking all clear liquids. You are ready for the exam if you followed all instructions and your stool is no longer formed, but clear or yellow liquid. COLON CLEANSING TIPS 1. Stay near a toilet! You will have diarrhea, which can be quite sudden. This is normal. 2. It is common to experience abdominal discomfort until the stool has flushed from your colon (this may take 2-4 hours, and occasionally significantly longer). 3. Rarely, people may experience nausea or vomiting with the prep. If this occurs, give yourself a 30-90 minute break, rinse your mouth or brush your teeth, then continue drinking the prep solution. 4. Anal skin irritation or a flare of hemorrhoid inflammation may occur and can be treated with a variety of over the counter remedies including hydrocortisone creams, baby wipes or Tucks pads. Avoid products containing alcohol. If you have a prescription for hemorrhoid cream, you may use it. Do not use suppositories. The following instructions are important for you related to your office visit today with the [facility]. INSTRUCTIONS FOR YOUR SURGICAL PROCEDURE - COLON RESECTION We discussed the risks and benefits of your planned procedure. If you have any additional questions, please contact our office immediately. Preadmission testing is an important part of preparation for your procedure. All laboratory studies, x-rays, and additional testing must be available for the preadmission testing staff to help ready you for surgery. You should not take aspirin or other blood thinners for one week prior to surgery unless instructed differently. You were given handouts with instructions for your bowel preparation. It is important that should follow these instructions closely. If you do not feel you are becoming adequately clean after your bowel preparation, contact our office. Make sure to drink plenty of clear liquids with your bowel cleansing. This well help to better clean your colon and prevent dehydration. Do not eat or drink liquids after midnight. After completing the bowel cleansing, You may be given antibiotic tablets to further prepare your colon. Typically neomycin and flagyl - 1gram orally at: 4pm, 6pm and 10pm are given. The times may be different if surgery is not scheduled for the first case of the day. You should not have anything to eat or drink after midnight the night prior to your surgery. You should wear comfortable clothes for your procedure. Please understand that the operating room schedule is an estimated time for your surgical procedure. Your procedure may be somewhat earlier or somewhat later than the estimated time. You will typically be kept NPO in the hospital until you have return of bowel activity. Once you have return of bowel activity, you will be started on clear liquids and typically will go home the following day. You'll be discharged home with postoperative instructions and typically pain medications. Please be aware that many pain medications may cause nausea. You should typically eat light foods as you take your pain medications. Your dressing will usually be able to be removed two to three days following surgery. You may typically shower three days after surgery. If you have Steri-Strips on your incision (little white tapes) you should leave these in place until they fall off. You will typically have a followup office visit 1 to 2 weeks after surgery. Again, if you have any difficulties or concerns, contact our office immediately. If you note any additional difficulties, questions, or concerns, you should contact our office immediately @ [phone] and ask to be transferred to the General Surgery department. Chris Ferreira MD 03/19/2018 11:08 AM Signed HISTORY AND PHYSICAL - COLON RESECTION FOR MID TRANSVERSE COLON CANCER Myrna Jorgensen 1950 March 19, 2018 REFERRING PHYSICIAN: Dr. Dudley CHIEF COMPLAINT: Rectal bleeding HPI: The patient is a 68 year old male with a complaint of rectal bleeding. The patient has a history of coronary artery disease. He had 2 stents placed last April. He is chronically on Plavix and aspirin. The patient presented to [facility] last week with rectal bleeding. He was admitted to the medicine service. A CT scan of the abdomen and pelvis was obtained which demonstrated no specific abnormalities in the liver. There was felt to be thickening in the mid transverse colon. My partner, Lorenza Cueva was consulted. She performed upper and lower endoscopy on March 15, 2018. Upper endoscopy demonstrated very mild antritis and benign gastric fundic polyps. Colonoscopy was performed and at the mid transverse colon a fungating mass was identified. Multiple biopsies were obtained. Luis ink was injected for identification and a clip was placed to better localize this abnormality. Postprocedure KUB was obtained which demonstrated the clip just to the right of the midline vertebral structures. Pathology returned this morning. Pathology demonstrated: MICROSCOPIC DIAGNOSIS A. Antral biopsy: Mild gastritis. B. Gastric polyp, biopsy: Fundic gland polyp. C. Transverse colon mass, biopsy: Invasive moderately differentiated adenocarcinoma. See comment. The patient was seen in the hospital by his bladder tier, Dr. Esteban Grigsby. Dr. Grigsby felt that overall, the patient was a reasonable risk for surgical intervention locally. He was comfortable holding both his aspirin and his plavix. The patient's last dose of Plavix was Monday. PAST MEDICAL HISTORY Diagnosis Date - BPH (benign prostatic hyperplasia) 09/02/2010 - Colon cancer (HCC) 03/2018 - Esophageal reflux 02/02/2008 - Heart attack (HCC) 04/2017 - Hernia of other specified sites of abdominal cavity without mention of obstruction or gangrene rectal - Renal calculus - Vasomotor rhinitis 09/02/2010 PAST SURGICAL HISTORY Procedure Laterality Date - PAST SURGICAL HISTORY OF Right 1979 detatched retina - PAST SURGICAL HISTORY OF removal of kidney stone - PAST SURGICAL HISTORY OF 1979 rectal surgery? - PRQ CARDIAC STENT W/ANGIO 1 VSL 04/2017 Current Outpatient Prescriptions: docusate sodium (COLACE) 100 mg capsule Take 100 mg by mouth twice daily. Disp: Rfl: triamcinolone acetonide (NASACORT AQ) 55 mcg nasal inhaler Use 2 Sprays in the nose once daily. Disp: Rfl: aspirin, enteric coated (ECOTRIN LOW STRENGTH) 81 mg EC tablet Take 81 mg by mouth once daily. Disp: Rfl: atorvastatin (LIPITOR) 80 mg tablet Take 80 mg by mouth once daily. Disp: Rfl: isosorbide mononitrate ER (IMDUR) 30 mg 24 hr tablet Take 30 mg by mouth once daily. Disp: Rfl: lisinopril (ZESTRIL) 20 mg tablet Take 20 mg by mouth once daily. Disp: Rfl: metoprolol tartrate, short acting, (LOPRESSOR) 25 mg tablet Take 25 mg by mouth twice daily. Disp: Rfl: polyethylene glycol 3350 (MIRALAX ORAL) Take 1 scoop by mouth once daily. Disp: Rfl: OTC NUTRITIONAL SUPPLEMENT once daily. Glucosamine/chondroitin 1500/1200mg Disp: Rfl: tamsulosin ER (FLOMAX) 0.4 mg cp24 Take 1 capsule by mouth daily at bedtime. Disp: 90 capsule Rfl: 0 RABEprazole (ACIPHEX) 20 mg tablet Take 1 tablet by mouth once daily. (Patient taking differently: Take 20 mg by mouth twice daily. ) Disp: 90 tablet Rfl: 0 Miralax / Gatorade Prep Miralax 238 gm bottle, (2) 32 oz bottles of Gatorade, AND 4 Dulcolax 5 mg tabs- as directed per instructions Disp: Rfl: neomycin 500 mg tablet Take 2 tablets by mouth four times daily. 2 TABLETS AT 6, 8 ,AND 10 PM Disp: 6 tablet Rfl: 0 metroNIDAZOLE (FLAGYL) 500 mg tablet Take 1 tablet by mouth three times daily. 2 TABLETS AT 6, 8, AND 10 PM Disp: 6 tablet Rfl: 0 Hydrochlorothiazide 12.5 mg capsule Take 1 capsule by mouth once daily. (Patient not taking: Reported on 03/19/2018 ) Disp: 90 capsule Rfl: 0 mometasone (NASONEX) 50 mcg/actuation nasal spray 2 puffs in each nostrils daily (Patient not taking: Reported on 03/19/2018 ) Disp: 3 Bottle Rfl: 3 methylPREDNISolone (MEDROL, MELODY,) 4 mg tablet Follow dosing instructions, take by mouth with food. (Patient not taking: Reported on 03/19/2018 ) Disp: 1 Package Rfl: 0 No current facility-administered medications for this visit. Last Plavix dose was Monday evening ALLERGIES: Prilosec [Omeprazole] PERSONAL HISTORY: Social History Marital status: Spouse name: Years of education: Number of children: Social History Main Topics Smoking status: Never Smoker Smokeless tobacco: Never Used Alcohol use: No Drug use: No FAMILY HISTORY: FAMILY HISTORY Problem Relation Age of Onset - Heart Mother ASHD,valve disease - Ischemic Heart Disease Father 80 - Hypertension Father - Diabetes Father - Ischemic Heart Disease Sister - None Sister - None Sister - None Sister REVIEW OF SYMPTOMS: The review of systems data was entered by the nurse and reviewed by ok Nursing Notes: Maribeth Carrizales RN 03/19/2018 9:26 AM Signed REVIEW OF SYSTEMS: General: The patient denies fatigue, denies weight loss, denies weight gain, denies feeling hot, and denies feelings of cold. Eyes: The patient denies glaucoma, NOTES eye injury/surgery, wears glasses or contacts. Ear/Nose/Throat: The patient NOTES allergies, denies hayfever, denies ear infections, and denies bloody noses. Cardiovascular: The patient denies chest pain, NOTES heart disease, denies high blood pressure,NOTES cardiac stent, NOTES prior heart attack, denies irregular heart beat, denies high cholesterol, denies poor circulation, denies heart failure, other cardiac issues, denies claudication, denies cold feet, denies peripheral arterial stent. Respiratory: The patient denies tuberculosis, denies pneumonia, denies frequent cough, denies pulmonary embolism, denies shortness of breath, and denies coughing up blood. Gastrointestinal: The patient denies difficulty swallowing, denies acid reflux, denies ulcers, denies vomiting, denies jaundice/hepatitis, denies gallbladder problems, denies black or tarry stools, denies hemorrhoids, NOTES bleeding from rectum, denies diverticulitis, denies constipation, denies diarrhea, denies loss of stool control, and denies hernias. Kidney/Bladder: The patient notes kidney stones, denies urine infections, and denies bloody urine. Skin: The patient denies a history of skin cancer, denies bleeding/changing moles, and denies a history of skin rash. Neurologic: The patient denies a history of epilepsy/convulsions, denies headaches, denies head/spinal injuries, and denies stroke/TIA. Psychiatric: The patient denies psychiatric medications, denies depression, and denies voices, denies substance abuse. Endocrine: The patient denies thyroid disorders, denies diabetes, and denies hormonal problems. Hematologic: The patient denies a history of bruising, denies bleeding, and denies anemia, denies blood clots. Infections: The patient denies a history of measles and mumps, denies rheumatic fever, and denies sexually transmitted diseases. Musculoskeletal: The patient denies back pain/injury, notes back problems, notes sciatica, denies knee/foot trouble, denies arthritis, or denies gout. When was patient's last Mammogram screening? N/A Last Colonoscopy: 02/2018 Maribeth Carrizales RN PHYSICAL EXAMINATION: General: The patient is 68 year old male, well nourished, well hydrated in no acute distress. The patient is oriented to time, place, and person. VITALS: BP 120/70 (BP Site: Right Arm, BP Position: Sitting, BP Cuff Size: Large Adult) Pulse 66 Temp 36.9 ?C (98.4 ?F) Ht 180.3 cm (5' 11) Wt 103.4 kg (228 lb) BMI 31.80 kg/m? Body mass index is 31.8 kg/m?. HEENT: Normal cephalic, ataumatic, pupils are equally round, sclera are anicteric, mucous membranes are moist, oropharynx is clear. Neck has no masses, asymmetry or lymphadenopathy. Thyroid is unremarkable. Respiratory: Clear to auscultation and percussion. Normal respiratory excursion and pattern. Cardiac: Examination is regular rate and rhythm. Abdominal exam: Soft, nontender, with no palpable masses. No hepatosplenomegaly. A small nonreducible umbilical hernia, no obvious inguinal hernias. Rectal exam: exam deferred Extremities: no clubbing, cyanosis or edema. No adenopathy. LABORATORY VALUES: As Noted RADIOLOGIC STUDIES: As Noted Assessment IMPRESSION: Transverse colon cancer PLAN: We extensively discussed the diagnosis and discussed the surgical options. The patient has elected to undergo colon resection I plan to perform a Laparoscopic colectomy partial right hemicolectomy- [id number]. The planned surgical procedure was discussed extensively with the patient. The risks, benefits, anticipated outcomes and possible complications and alternatives were discussed. My staff has also explained the procedure in understandable terms and the patient was given the option to take printed material concerning the planned procedure. The patient had the opportunity to ask questions concerning the planned procedure. The patient freely consents to the planned procedure. I will plan for outpatient bowel preparation including mechanical and antibiotic preparation including Neomycin and Flagyl 1gm each at 6,8, and 10pm the night before surgery. The patient received 1 unit of packed red cells while in the hospital last week. I will repeat a hemoglobin in the morning before surgery and obtain a CEA level. Anticipated Surgical Procedure/ CPT Code: Laparoscopic colectomy partial right hemicolectomy- 96900-325 Anticipated Anesthetic: General Patient weight: Blood pressure 120/70, pulse 66, temperature 36.9 ?C (98.4 ?F), height 180.3 cm (5' 11), weight 103.4 kg (228 lb). BMI: Body mass index is 31.8 kg/m?. Planned antibiotic: Cefotetan 2gm IVPB enterprise application administrator to OR SCDs needed - Yes Business Support Liaison Needed - Yes Diagnoses: (C18.4) Malignant neoplasm of transverse colon (HCC) (primary encounter diagnosis) A letter was sent to Dr. Octavia LUKE indicating the above finding for this patient. Return to Clinic: The patient is instructed to follow-up with me 1 week post operatively. Chris Ferreira MD Referring Provider: [facility] [[id number]] Allergies As of Date: 03/19/2018 Noted Allergy Reaction PRILOSEC (OMEPRAZOLE) 09/20/2005 Date Reviewed: 03/19/2018 Reviewed by: Chris Ferreira - Fully Assessed Reason for Visit: Consult [[id number]] Cmt: colectomy Primary Visit Diagnosis:Malignant neoplasm of transverse colon (HCC) [C18.4] Order(s):Miralax / Gatorade PrepMiralax 238 gm bottle, (2) 32 oz bottles of Gatorade, AND 4 Dulcolax 5 mg tabs- as directed per instructionsDisp: Rfl: neomycin 500 mg tabletTake 2 tablets by mouth four times daily. 2 TABLETS AT 6, 8 ,AND 10 PMDisp: 6 tabletRfl: 0 metroNIDAZOLE (FLAGYL) 500 mg tabletTake 1 tablet by mouth three times daily. 2 TABLETS AT 6, 8, AND 10 PMDisp: 6 tabletRfl: 0 Prescriptions as of 03/19/2018 Sig: DOCUSATE SODIUM 100 MG CAPSULE Take 100 mg by mouth twice da* TRIAMCINOLONE ACETONIDE 55 MC* Use 2 Sprays in the nose once* ASPIRIN 81 MG TABLET,DELAYED * Take 81 mg by mouth once curtis* ATORVASTATIN 80 MG TABLET Take 80 mg by mouth once curtis* ISOSORBIDE MONONITRATE ER 30 * Take 30 mg by mouth once curtis* LISINOPRIL 20 MG TABLET Take 20 mg by mouth once curtis* METOPROLOL TARTRATE 25 MG TAB* Take 25 mg by mouth twice cely* MIRALAX ORAL Take 1 scoop by mouth once da* OTC NUTRITIONAL SUPPLEMENT once daily. Glucosamine/chond* TAMSULOSIN 0.4 MG CAPSULE Take 1 capsule by mouth daily* RABEPRAZOLE 20 MG TABLET,MIA* Take 1 tablet by mouth once d* Patient taking differently: Take 20 mg by mouth twice cely* COMPOUNDED PRESCRIPTION Miralax 238 gm bottle, (2) 32* NEOMYCIN 500 MG TABLET Take 2 tablets by mouth four * METRONIDAZOLE 500 MG TABLET Take 1 tablet by mouth three * HYDROCHLOROTHIAZIDE 12.5 MG C* Take 1 capsule by mouth once * Patient not taking: Reported on 03/19/2018 MOMETASONE 50 MCG/ACTUATION N* 2 puffs in each nostrils daily Patient not taking: Reported on 03/19/2018 METHYLPREDNISOLONE 4 MG TABLE* Follow dosing instructions, t* Patient not taking: Reported on 03/19/2018 Problem List As Of Date 03/19/2018 Noted Resolved CALCULUS OF KIDNEY [N20.0] INVALID FOR* BENIGN HYPERTENSION [I10] INVALID FOR* HYPERLIPIDEMIA NEC/NOS [E78.5] INVALID FOR* ESOPHAGEAL REFLUX [K21.9] INVALID FOR* Vasomotor rhinitis [J30.0] INVALID FOR* BPH (benign prostatic hyperplasia) [N40.0] INVALID FOR* Other instructions from your clinician: SPLIT DOSE MIRALAX-GATORADE PREPARATION Arrive one hour early for your procedure. To ensure a successful exam, please follow all instructions carefully. You MUST arrange a ride for the day of your exam. If you fail to arrange acceptable transportation, your procedure will need to be rescheduled. Please bring a list of all of your current medications, including any Ciee-lbd-Dugns[facility] medications with you. DIABETIC PATIENTS Use G2 or (Gatorade 2) Take only ? of your morning dose of insulin or tablets the day before your exam. Do not take any more of your diabetic medications until the procedure is over and you have resumed eating again. Drink regular liquids (not diabetic) and monitor your sugar throughout the day you are on clear liquids. If your sugar gets too low, drink some apple juice. PURCHASE THE FOLLOWING SUPPLIES AT YOUR LOCAL PHARMACY: - 1- 8.3oz bottle Miralax (238 grams) or generic equivalent. - 64 oz. clear liquid (NOT red). Gatorade, G2, Gatorade, G2, Gatorade Ice, PowerAde or PowerAde Zero are acceptable. 7 DAYS BEFORE YOUR COLONOSCOPY: If you take aspirin or NSAIDS such as Advil, Motrin, Celebrex or Ibuprofen, you may continue to take them as usual unless otherwise instructed by your physician. You should discuss this with your physician in advance of the procedure. Ask your doctor for specific instructions if you take a blood thinner like Plavix, Pradaxa, Clopidogrel, Coumadin, Warfarin, Effient, Prasugrel or Lovenox. 3 DAYS BEFORE COLONOSCOPY: Stop eating all nutes, seeds and popcorn. 1 DAY BEFORE YOUR COLONOSCOPY: Begin a clear liquid diet. Drink at least 8 glasses of water during the day to avoid dehydration. At 5pm, take 4 Dulcolax tablets. Mix 64oz. liquid with 8.[address] in the refrigerator (DO NOT ADD ICE) At 6pm, drink 32 oz. of the Miralax/Gatorade solution. 4 hours prior to procedure, drink the remaining 32 oz. of the Miralax/Gatorade solution. Clear Liquid Not Clear Liquid Gatorade, Pedialyte or PowerAde No red items of any kind Clear broth or bouillon No alcohol Coffee or tea (no milk or non-dairy creamer) No milk or non-dairy creamers Carbonated and non-carbonated soft drinks No noodles or vegetables in soup Cortes-Aid or other fruit flavored drinks No juice with pulp Strained fruit juices (no pulp) No liquid you cannot see through Jell-O, popsicles, hard candy No gum or candy DAY OF YOUR COLONOSCOPY: You may take your blood pressure or heart medication with a sip of water up to 3 hours before your procedure. 2 hours before, stop drinking all clear liquids. You are ready for the exam if you followed all instructions and your stool is no longer formed, but clear or yellow liquid. COLON CLEANSING TIPS 1. Stay near a toilet! You will have diarrhea, which can be quite sudden. This is normal. 2. It is common to experience abdominal discomfort until the stool has flushed from your colon (this may take 2-4 hours, and occasionally significantly longer). 3. Rarely, people may experience nausea or vomiting with the prep. If this occurs, give yourself a 30-90 minute break, rinse your mouth or brush your teeth, then continue drinking the prep solution. 4. Anal skin irritation or a flare of hemorrhoid inflammation may occur and can be treated with a variety of over the counter remedies including hydrocortisone creams, baby wipes or Tucks pads. Avoid products containing alcohol. If you have a prescription for hemorrhoid cream, you may use it. Do not use suppositories. The following instructions are important for you related to your office visit today with the [facility]. INSTRUCTIONS FOR YOUR SURGICAL PROCEDURE - COLON RESECTION We discussed the risks and benefits of your planned procedure. If you have any additional questions, please contact our office immediately. Preadmission testing is an important part of preparation for your procedure. All laboratory studies, x-rays, and additional testing must be available for the preadmission testing staff to help ready you for surgery. You should not take aspirin or other blood thinners for one week prior to surgery unless instructed differently. You were given handouts with instructions for your bowel preparation. It is important that should follow these instructions closely. If you do not feel you are becoming adequately clean after your bowel preparation, contact our office. Make sure to drink plenty of clear liquids with your bowel cleansing. This well help to better clean your colon and prevent dehydration. Do not eat or drink liquids after midnight. After completing the bowel cleansing, You may be given antibiotic tablets to further prepare your colon. Typically neomycin and flagyl - 1gram orally at: 4pm, 6pm and 10pm are given. The times may be different if surgery is not scheduled for the first case of the day. You should not have anything to eat or drink after midnight the night prior to your surgery. You should wear comfortable clothes for your procedure. Please understand that the operating room schedule is an estimated time for your surgical procedure. Your procedure may be somewhat earlier or somewhat later than the estimated time. You will typically be kept NPO in the hospital until you have return of bowel activity. Once you have return of bowel activity, you will be started on clear liquids and typically will go home the following day. You'll be discharged home with postoperative instructions and typically pain medications. Please be aware that many pain medications may cause nausea. You should typically eat light foods as you take your pain medications. Your dressing will usually be able to be removed two to three days following surgery. You may typically shower three days after surgery. If you have Steri-Strips on your incision (little white tapes) you should leave these in place until they fall off. You will typically have a followup office visit 1 to 2 weeks after surgery. Again, if you have any difficulties or concerns, contact our office immediately. If you note any additional difficulties, questions, or concerns, you should contact our office immediately @ [phone] and ask to be transferred to the General Surgery department. Visit Notes: >> Maribeth Carrizales RN MonMar 19, 2018 9:25 AM Status: Signed REVIEW OF SYSTEMS: General: The patient denies fatigue, denies weight loss, denies weight gain, denies feeling hot, and denies feelings of cold. Eyes: The patient denies glaucoma, NOTES eye injury/surgery, wears glasses or contacts. Ear/Nose/Throat: The patient NOTES allergies, denies hayfever, denies ear infections, and denies bloody noses. Cardiovascular: The patient denies chest pain, NOTES heart disease, denies high blood pressure,NOTES cardiac stent, NOTES prior heart attack, denies irregular heart beat, denies high cholesterol, denies poor circulation, denies heart failure, other cardiac issues, denies claudication, denies cold feet, denies peripheral arterial stent. Respiratory: The patient denies tuberculosis, denies pneumonia, denies frequent cough, denies pulmonary embolism, denies shortness of breath, and denies coughing up blood. Gastrointestinal: The patient denies difficulty swallowing, denies acid reflux, denies ulcers, denies vomiting, denies jaundice/hepatitis, denies gallbladder problems, denies black or tarry stools, denies hemorrhoids, NOTES bleeding from rectum, denies diverticulitis, denies constipation, denies diarrhea, denies loss of stool control, and denies hernias. Kidney/Bladder: The patient notes kidney stones, denies urine infections, and denies bloody urine. Skin: The patient denies a history of skin cancer, denies bleeding/changing moles, and denies a history of skin rash. Neurologic: The patient denies a history of epilepsy/convulsions, denies headaches, denies head/spinal injuries, and denies stroke/TIA. Psychiatric: The patient denies psychiatric medications, denies depression, and denies voices, denies substance abuse. Endocrine: The patient denies thyroid disorders, denies diabetes, and denies hormonal problems. Hematologic: The patient denies a history of bruising, denies bleeding, and denies anemia, denies blood clots. Infections: The patient denies a history of measles and mumps, denies rheumatic fever, and denies sexually transmitted diseases. Musculoskeletal: The patient denies back pain/injury, notes back problems, notes sciatica, denies knee/foot trouble, denies arthritis, or denies gout. When was patient's last Mammogram screening? N/A Last Colonoscopy: 02/2018 Maribeth Carrizales RN Prescriptions ordered this encounter Disp Refills Start End COMPOUNDED PRESCRIPTION 03/19/2018 Class: OTC Sig: Miralax 238 gm bottle, (2) 32 oz bottles of Gatorade, AND 4 Dulcolax 5 mg tabs- as directed per instructions NEOMYCIN 500 MG TABLET 6 ta* 0 03/19/2018 Route: ORAL Sig: Take 2 tablets by mouth four times daily. 2 TABLETS AT 6, 8 ,AND 10 PM METRONIDAZOLE 500 MG TABLET 6 ta* 0 03/19/2018 Route: ORAL Sig: Take 1 tablet by mouth three times daily. 2 TABLETS AT 6, 8, AND 10 PM Letter Text NURSE'S SIGNATURE DOCTOR'S SIGNATURE TIME TIME DATE March 19, 2018 [facility] DATE March 19, 2018 Orders verified by readback: PRE-ADMISSION TESTING PHYSICIAN'S ORDER SHEET PREOPERATIVE ORDERS: X ANTIBIOTIC: _Cefotetan 2gm IVPB enterprise application administrator to OR__ aware of penicillin allergy ok to administer X SCD'S __ PREP LOCATION: ___abdomen_ __ PAINT WITH BETADINE/CHLORAHEXIDINE PREP PRE-ADMISSION TESTING PHYSICIAN'S ORDER SHEET [id number] REV 3.13.08 ANESTHESIA: __ Surgeon has notified anesthesia. Date/Time Doctor OR __ Anesthesia not yet notified of consult by surgeon. Check area of concern. System of concern: __Cardiac __Pulmonary __Neuro __ Airway __Allergies __Other __ Anesthesia to see patient at PAT appointment. (PAT appt must be between 1-3 pm) LAB ORDERS: X Labs done at [facility] (Copies enclosed for [facility]) __ Duplicate order __ No Labs ordered ___ CBC _X__ CBC/Diff ___ Basic Metabolic Profile (BUN, Lytes, Glu, Cre, Calcium) __ Glucose __ Creatinine __ BUN __ Lytes __ Protime- Dx code: __ PTT - Dx code: __ Urinalysis __ Urinalysis (complete) __ Liver Profile __ Lipid Profile __ Alk Phosphatase __ Bilirubin __ Amylase/Lipase __ Magnesium __ Phosphorous __ PSA - Dx code: _X_ CEA - Dx code: __ Urine __ Serum (Age 11-52 years old unless sterilization or pt refuses) X Screen for MRSA (PCR) if guidelines met Other: BLOOD BANK: __ Type AND Screen __ Type AND Cross (RC) units __ Autologous units __ Fresh Frozen Plasma units __ Platelets units ANCILLARY DEPTS: __EKG-MD to read: __PA/Lat CXR Reason for exam: __ Incentive Spirometer __ SPINNER FIXER Other: Patient has: Pacemaker ICD Dispensing Optician name AND phone number: Pacer/ICD rep notified by nurse: X CHG product: Aplicare or cloths Dispense CHG product+Instructions if surgical site below neck Additional Orders: PAT Comment: Anesthesia notified on about: TEDS / KNEE HIGH TEDS / THIGH HIGH Faxed to Pharmacy: __ Vancomycin 1000 mg IV X 1 dose preoperatively if history of MRSA or positive MRSA screening (Fax to Rx) Admission Status: SDC Outpatient SDC Overnight (23 hr or less) X Admit Date: PAT Surgery Allergies:. Prilosec [Omeprazole] Patient's Name: Epi Jorgensen Patient's Birthdate: 1950 Diagnosis: (C18.4) Malignant neoplasm of transverse colon (HCC) (primary encounter diagnosis) [facility] Surgery / Procedure: Surgeon / Physician: Chris Ferreira MD My doctor and I talked about the recommended surgery/procedure, the reasons it is being recommended, and what it generally is expected to do. We talked about major risks or complications that could occur. We talked about options other than the recommended surgery/procedure (including no treatment) and the benefits and risks of each option. I received and understand information describing the surgery or procedure, its potential risks and complications. I know surgery/medicine is not an exact science. No doctor, nurse or anyone from [facility] promised or guaranteed the success or clinical outcome of the surgery/procedure, or that a risk or complication could not occur. I know every surgery/procedure has risks, including the risk of anesthesia, the risk of unplanned injury, the risk of infection and the risk of failure. I know that not every possible risk could be covered in the written materials or in talking with the doctor. Before signing this Consent, I had an opportunity to discuss the recommended surgery/procedure, other options, and risks. I am satisfied with the answers to all of my questions. I understand about risks and knowingly accept them. If you are (or believe you may be ), tell your doctor or nurse before you sign this Consent. Your doctor will discuss with you if there are potential risks to your unborn child. Your consent will be for yourself and for the unborn child. It is the Hospital's policy to require that a responsible adult drive you directly home when you leave the Hospital. By signing, you accept and agree with this policy. By signing, I voluntarily and knowingly give my informed consent: O To have the doctor perform the recommended surgery/procedure. O To have such anesthetics (including moderate sedation) that are necessary and advisable. O To have the doctor perform additional, medically necessary surgery/procedures to treat any unforeseen or newly-discovered condition that occurs during surgery/the procedure, which needs prompt attention. O To examine, record and dispose of any tissue or body parts that are removed. O To allow photographs that will be used strictly for documenting my medical condition and treatment, which will be made a part of my confidential medical record. Check, if applicable: - To give me blood or blood products during surgery/procedure and during my hospital stay, as medically necessary. The risks, benefits, and alternatives to transfusions have been discussed with me and all my questions have been answered. - To not give me blood or blood products. I fully understand that this may adversely affect my medical management and may result in my . Alternatives to blood/blood products have been discussed with me. I read this Form, or had it read to me. I understand what it says. Patient or Responsible Person Relationship to Patient Witness to Signature Only Reason Patient Does Not Sign -- Date and Time signed Physician's signature [id number] Rev 03/24 Informed Consent Page 1 of 2 [facility] Informed Consent Surgery / Procedure: Laparoscopic colectomy partial right hemicolectomy- [id number] Surgeon / Physician: Chris Ferreira MD My doctor and I talked about the recommended surgery / procedure, the reasons it is being recommended, and what it generally is expected to do. We talked about major risks or complications that could occur. We talked about options other than the recommended surgery / procedure (including no treatment) and the benefits and risks of each option. I received and understand information describing the surgery or procedure, its potential risks, and complications. I know surgery / medicine is not an exact science. No doctor, nurse or anyone from [facility] promised or guaranteed the success or clinical outcome of the surgery / procedure, or that a risk or complication could not occur. I know every surgery / procedure has risks, including the risk of anesthesia, the risk of unplanned injury, the risk of infection and the risk of failure. I know that not every possible risk could be covered in the written materials or in talking with the doctor. Before signing this Consent, I had an opportunity to discuss the recommended surgery / procedure, other options, risks, and what may occur if I choose not to have the surgery / procedure. I am satisfied with the answers to all of my questions. I understand about risks and knowingly accept them. If you are (or believe you may be ), tell your doctor or nurse before you sign this Consent. Your doctor will discuss with you if there are potential risks to your unborn child. Your consent will be for yourself and for the unborn child. It is the Hospital?s policy to require that a responsible adult drive you directly home when you leave the Hospital. By signing, you accept and agree with this policy. By signing, I voluntarily and knowingly give my informed consent: To have the doctor perform the recommended surgery / procedure To have such anesthetics (including moderate / deep sedation) that are necessary and advisable. To have the doctor perform additional, medically necessary surgery / procedures to treat any unforeseen or newly-discovered condition that occurs during surgery / the procedure, which needs prompt attention. To examine, record and dispose of any tissue or body parts that are removed. To allow photographs that will be used strictly for documenting my medical condition and treatment, which will be made a part of my confidential medical record. To allow [facility] employees, such as an Registered Nurse Plodding Operator (HOT SHOT) to assist with my surgery To allow Healthcare Industry Representatives to be present during my surgery or procedure To allow students to participate in the care, under appropriate situations. Page 1 of 2 [facility] Informed Consent Check One: To give me blood or blood products during surgery / procedure and during my hospital stay, as medically necessary. The risks, benefits, and alternatives to transfusions have been discussed with me and all my questions have been answered. To not give me blood or blood products. I fully understand that this may adversely affect my medical management and may result in my . Alternatives to blood / blood products have been discussed with me. I read this Form, or had it read to me. I understand what it says. Patient Signature Relationship to Patient Date AND Time Signed Reason Patient Does Not Sign Witness to Signature Only Date and Time Signed I certify that I have explained the nature, purpose, anticipated risks and benefits, complications, and alternatives to the proposed procedure to the patient. I have answered all questions fully and I believe the patient fully understands what I have explained. Physician?s Signature Date and Time [facility] [address] [place], [place] [address] Daniel Carey III MD [address] [place] [address] 03/19/2018 Dear Daniel Carey III MD : Thank you for allowing me to evaluate your patient, Myrna Jorgensen. I saw Myrna on 03/19/2018. I am planning to perform a asdasdsa. Enclosed is a copy of my office dictation for Myrna which includes my evaluation and recommendations. Again, thank you for the referral of Myrna Treviño Jorgensen. If I can be of any assistance to you in the future, please don't hesitate to call. Sincerely yours, Chris Ferreira MD, FACS HISTORY AND PHYSICAL - COLON RESECTION FOR MID TRANSVERSE COLON CANCER Myrna Jorgensen 1950 March 19, 2018 REFERRING PHYSICIAN: Dr. Dudley CHIEF COMPLAINT: Rectal bleeding HPI: The patient is a 68 year old male with a complaint of rectal bleeding. The patient has a history of coronary artery disease. He had 2 stents placed last April. He is chronically on Plavix and aspirin. The patient presented to [facility] last week with rectal bleeding. He was admitted to the medicine service. A CT scan of the abdomen and pelvis was obtained which demonstrated no specific abnormalities in the liver. There was felt to be thickening in the mid transverse colon. My partner, Lorenza Cueva was consulted. She performed upper and lower endoscopy on March 15, 2018. Upper endoscopy demonstrated very mild antritis and benign gastric fundic polyps. Colonoscopy was performed and at the mid transverse colon a fungating mass was identified. Multiple biopsies were obtained. Luis ink was injected for identification and a clip was placed to better localize this abnormality. Postprocedure KUB was obtained which demonstrated the clip just to the right of the midline vertebral structures. Pathology returned this morning. Pathology demonstrated: MICROSCOPIC DIAGNOSIS A. Antral biopsy: Mild gastritis. B. Gastric polyp, biopsy: Fundic gland polyp. C. Transverse colon mass, biopsy: Invasive moderately differentiated adenocarcinoma. See comment. The patient was seen in the hospital by his bladder tier, Dr. Esteban Grigsby. Dr. Grigsby felt that overall, the patient was a reasonable risk for surgical intervention locally. He was comfortable holding both his aspirin and his plavix. The patient's last dose of Plavix was Monday. PAST MEDICAL HISTORY Diagnosis Date - BPH (benign prostatic hyperplasia) 09/02/2010 - Colon cancer (HCC) 03/2018 - Esophageal reflux 02/02/2008 - Heart attack (HCC) 04/2017 - Hernia of other specified sites of abdominal cavity without mention of obstruction or gangrene rectal - Renal calculus - Vasomotor rhinitis 09/02/2010 PAST SURGICAL HISTORY Procedure Laterality Date - PAST SURGICAL HISTORY OF Right 1979 detatched retina - PAST SURGICAL HISTORY OF removal of kidney stone - PAST SURGICAL HISTORY OF 1979 rectal surgery? - PRQ CARDIAC STENT W/ANGIO 1 VSL 04/2017 Current Outpatient Prescriptions: docusate sodium (COLACE) 100 mg capsule Take 100 mg by mouth twice daily. Disp: Rfl: triamcinolone acetonide (NASACORT AQ) 55 mcg nasal inhaler Use 2 Sprays in the nose once daily. Disp: Rfl: aspirin, enteric coated (ECOTRIN LOW STRENGTH) 81 mg EC tablet Take 81 mg by mouth once daily. Disp: Rfl: atorvastatin (LIPITOR) 80 mg tablet Take 80 mg by mouth once daily. Disp: Rfl: isosorbide mononitrate ER (IMDUR) 30 mg 24 hr tablet Take 30 mg by mouth once daily. Disp: Rfl: lisinopril (ZESTRIL) 20 mg tablet Take 20 mg by mouth once daily. Disp: Rfl: metoprolol tartrate, short acting, (LOPRESSOR) 25 mg tablet Take 25 mg by mouth twice daily. Disp: Rfl: polyethylene glycol 3350 (MIRALAX ORAL) Take 1 scoop by mouth once daily. Disp: Rfl: OTC NUTRITIONAL SUPPLEMENT once daily. Glucosamine/chondroitin 1500/1200mg Disp: Rfl: tamsulosin ER (FLOMAX) 0.4 mg cp24 Take 1 capsule by mouth daily at bedtime. Disp: 90 capsule Rfl: 0 RABEprazole (ACIPHEX) 20 mg tablet Take 1 tablet by mouth once daily. (Patient taking differently: Take 20 mg by mouth twice daily. ) Disp: 90 tablet Rfl: 0 Miralax / Gatorade Prep Miralax 238 gm bottle, (2) 32 oz bottles of Gatorade, AND 4 Dulcolax 5 mg tabs- as directed per instructions Disp: Rfl: neomycin 500 mg tablet Take 2 tablets by mouth four times daily. 2 TABLETS AT 6, 8 ,AND 10 PM Disp: 6 tablet Rfl: 0 metroNIDAZOLE (FLAGYL) 500 mg tablet Take 1 tablet by mouth three times daily. 2 TABLETS AT 6, 8, AND 10 PM Disp: 6 tablet Rfl: 0 Hydrochlorothiazide 12.5 mg capsule Take 1 capsule by mouth once daily. (Patient not taking: Reported on 03/19/2018 ) Disp: 90 capsule Rfl: 0 mometasone (NASONEX) 50 mcg/actuation nasal spray 2 puffs in each nostrils daily (Patient not taking: Reported on 03/19/2018 ) Disp: 3 Bottle Rfl: 3 methylPREDNISolone (MEDROL, MELODY,) 4 mg tablet Follow dosing instructions, take by mouth with food. (Patient not taking: Reported on 03/19/2018 ) Disp: 1 Package Rfl: 0 No current facility-administered medications for this visit. Last Plavix dose was Monday evening ALLERGIES: Prilosec [Omeprazole] PERSONAL HISTORY: Social History Marital status: Spouse name: Years of education: Number of children: Social History Main Topics Smoking status: Never Smoker Smokeless tobacco: Never Used Alcohol use: No Drug use: No FAMILY HISTORY: FAMILY HISTORY Problem Relation Age of Onset - Heart Mother ASHD,valve disease - Ischemic Heart Disease Father 80 - Hypertension Father - Diabetes Father - Ischemic Heart Disease Sister - None Sister - None Sister - None Sister REVIEW OF SYMPTOMS: The review of systems data was entered by the nurse and reviewed by ok Nursing Notes: Maribeth Carrizales RN 03/19/2018 9:26 AM Signed REVIEW OF SYSTEMS: General: The patient denies fatigue, denies weight loss, denies weight gain, denies feeling hot, and denies feelings of cold. Eyes: The patient denies glaucoma, NOTES eye injury/surgery, wears glasses or contacts. Ear/Nose/Throat: The patient NOTES allergies, denies hayfever, denies ear infections, and denies bloody noses. Cardiovascular: The patient denies chest pain, NOTES heart disease, denies high blood pressure,NOTES cardiac stent, NOTES prior heart attack, denies irregular heart beat, denies high cholesterol, denies poor circulation, denies heart failure, other cardiac issues, denies claudication, denies cold feet, denies peripheral arterial stent. Respiratory: The patient denies tuberculosis, denies pneumonia, denies frequent cough, denies pulmonary embolism, denies shortness of breath, and denies coughing up blood. Gastrointestinal: The patient denies difficulty swallowing, denies acid reflux, denies ulcers, denies vomiting, denies jaundice/hepatitis, denies gallbladder problems, denies black or tarry stools, denies hemorrhoids, NOTES bleeding from rectum, denies diverticulitis, denies constipation, denies diarrhea, denies loss of stool control, and denies hernias. Kidney/Bladder: The patient notes kidney stones, denies urine infections, and denies bloody urine. Skin: The patient denies a history of skin cancer, denies bleeding/changing moles, and denies a history of skin rash. Neurologic: The patient denies a history of epilepsy/convulsions, denies headaches, denies head/spinal injuries, and denies stroke/TIA. Psychiatric: The patient denies psychiatric medications, denies depression, and denies voices, denies substance abuse. Endocrine: The patient denies thyroid disorders, denies diabetes, and denies hormonal problems. Hematologic: The patient denies a history of bruising, denies bleeding, and denies anemia, denies blood clots. Infections: The patient denies a history of measles and mumps, denies rheumatic fever, and denies sexually transmitted diseases. Musculoskeletal: The patient denies back pain/injury, notes back problems, notes sciatica, denies knee/foot trouble, denies arthritis, or denies gout. When was patient's last Mammogram screening? N/A Last Colonoscopy: 02/2018 Maribeth Carrizales RN PHYSICAL EXAMINATION: General: The patient is 68 year old male, well nourished, well hydrated in no acute distress. The patient is oriented to time, place, and person. VITALS: BP 120/70 (BP Site: Right Arm, BP Position: Sitting, BP Cuff Size: Large Adult) Pulse 66 Temp 36.9 ?C (98.4 ?F) Ht 180.3 cm (5' 11) Wt 103.4 kg (228 lb) BMI 31.80 kg/m? Body mass index is 31.8 kg/m?. HEENT: Normal cephalic, ataumatic, pupils are equally round, sclera are anicteric, mucous membranes are moist, oropharynx is clear. Neck has no masses, asymmetry or lymphadenopathy. Thyroid is unremarkable. Respiratory: Clear to auscultation and percussion. Normal respiratory excursion and pattern. Cardiac: Examination is regular rate and rhythm. Abdominal exam: Soft, nontender, with no palpable masses. No hepatosplenomegaly. A small nonreducible umbilical hernia, no obvious inguinal hernias. Rectal exam: exam deferred Extremities: no clubbing, cyanosis or edema. No adenopathy. LABORATORY VALUES: As Noted RADIOLOGIC STUDIES: As Noted Assessment IMPRESSION: Transverse colon cancer PLAN: We extensively discussed the diagnosis and discussed the surgical options. The patient has elected to undergo colon resection I plan to perform a Laparoscopic colectomy partial right hemicolectomy- 73040-298. The planned surgical procedure was discussed extensively with the patient. The risks, benefits, anticipated outcomes and possible complications and alternatives were discussed. My staff has also explained the procedure in understandable terms and the patient was given the option to take printed material concerning the planned procedure. The patient had the opportunity to ask questions concerning the planned procedure. The patient freely consents to the planned procedure. I will plan for outpatient bowel preparation including mechanical and antibiotic preparation including Neomycin and Flagyl 1gm each at 6,8, and 10pm the night before surgery. The patient received 1 unit of packed red cells while in the hospital last week. I will repeat a hemoglobin in the morning before surgery and obtain a CEA level. Anticipated Surgical Procedure/ CPT Code: Laparoscopic colectomy partial right hemicolectomy- 77969-566 Anticipated Anesthetic: General Patient weight: Blood pressure 120/70, pulse 66, temperature 36.9 ?C (98.4 ?F), height 180.3 cm (5' 11), weight 103.4 kg (228 lb). BMI: Body mass index is 31.8 kg/m?. Planned antibiotic: Cefotetan 2gm IVPB enterprise application administrator to OR SCDs needed - Yes Business Support Liaison Needed - Yes Diagnoses: (C18.4) Malignant neoplasm of transverse colon (HCC) (primary encounter diagnosis) A letter was sent to Dr. Octavia LUKE indicating the above finding for this patient. Return to Clinic: The patient is instructed to follow-up with me 1 week post operatively. Chris Ferreira MD 03/19/2018 HISTORY AND PHYSICAL - COLON RESECTION FOR MID TRANSVERSE COLON CANCER Myrna Jorgensen 1950 March 19, 2018 REFERRING PHYSICIAN: Dr. Dudley CHIEF COMPLAINT: Rectal bleeding HPI: The patient is a 68 year old male with a complaint of rectal bleeding. The patient has a history of coronary artery disease. He had 2 stents placed last April. He is chronically on Plavix and aspirin. The patient presented to [facility] last week with rectal bleeding. He was admitted to the medicine service. A CT scan of the abdomen and pelvis was obtained which demonstrated no specific abnormalities in the liver. There was felt to be thickening in the mid transverse colon. My partner, Lorenza Cueva was consulted. She performed upper and lower endoscopy on March 15, 2018. Upper endoscopy demonstrated very mild antritis and benign gastric fundic polyps. Colonoscopy was performed and at the mid transverse colon a fungating mass was identified. Multiple biopsies were obtained. Luis ink was injected for identification and a clip was placed to better localize this abnormality. Postprocedure KUB was obtained which demonstrated the clip just to the right of the midline vertebral structures. Pathology returned this morning. Pathology demonstrated: MICROSCOPIC DIAGNOSIS A. Antral biopsy: Mild gastritis. B. Gastric polyp, biopsy: Fundic gland polyp. C. Transverse colon mass, biopsy: Invasive moderately differentiated adenocarcinoma. See comment. The patient was seen in the hospital by his bladder tier, Dr. Esteban Grigsby. Dr. Grigsby felt that overall, the patient was a reasonable risk for surgical intervention locally. He was comfortable holding both his aspirin and his plavix. The patient's last dose of Plavix was Monday. PAST MEDICAL HISTORY Diagnosis Date - BPH (benign prostatic hyperplasia) 09/02/2010 - Colon cancer (HCC) 03/2018 - Esophageal reflux 02/02/2008 - Heart attack (HCC) 04/2017 - Hernia of other specified sites of abdominal cavity without mention of obstruction or gangrene rectal - Renal calculus - Vasomotor rhinitis 09/02/2010 PAST SURGICAL HISTORY Procedure Laterality Date - PAST SURGICAL HISTORY OF Right 1979 detatched retina - PAST SURGICAL HISTORY OF removal of kidney stone - PAST SURGICAL HISTORY OF 1979 rectal surgery? - PRQ CARDIAC STENT W/ANGIO 1 VSL 04/2017 Current Outpatient Prescriptions: docusate sodium (COLACE) 100 mg capsule Take 100 mg by mouth twice daily. Disp: Rfl: triamcinolone acetonide (NASACORT AQ) 55 mcg nasal inhaler Use 2 Sprays in the nose once daily. Disp: Rfl: aspirin, enteric coated (ECOTRIN LOW STRENGTH) 81 mg EC tablet Take 81 mg by mouth once daily. Disp: Rfl: atorvastatin (LIPITOR) 80 mg tablet Take 80 mg by mouth once daily. Disp: Rfl: isosorbide mononitrate ER (IMDUR) 30 mg 24 hr tablet Take 30 mg by mouth once daily. Disp: Rfl: lisinopril (ZESTRIL) 20 mg tablet Take 20 mg by mouth once daily. Disp: Rfl: metoprolol tartrate, short acting, (LOPRESSOR) 25 mg tablet Take 25 mg by mouth twice daily. Disp: Rfl: polyethylene glycol 3350 (MIRALAX ORAL) Take 1 scoop by mouth once daily. Disp: Rfl: OTC NUTRITIONAL SUPPLEMENT once daily. Glucosamine/chondroitin 1500/1200mg Disp: Rfl: tamsulosin ER (FLOMAX) 0.4 mg cp24 Take 1 capsule by mouth daily at bedtime. Disp: 90 capsule Rfl: 0 RABEprazole (ACIPHEX) 20 mg tablet Take 1 tablet by mouth once daily. (Patient taking differently: Take 20 mg by mouth twice daily. ) Disp: 90 tablet Rfl: 0 Miralax / Gatorade Prep Miralax 238 gm bottle, (2) 32 oz bottles of Gatorade, AND 4 Dulcolax 5 mg tabs- as directed per instructions Disp: Rfl: neomycin 500 mg tablet Take 2 tablets by mouth four times daily. 2 TABLETS AT 6, 8 ,AND 10 PM Disp: 6 tablet Rfl: 0 metroNIDAZOLE (FLAGYL) 500 mg tablet Take 1 tablet by mouth three times daily. 2 TABLETS AT 6, 8, AND 10 PM Disp: 6 tablet Rfl: 0 Hydrochlorothiazide 12.5 mg capsule Take 1 capsule by mouth once daily. (Patient not taking: Reported on 03/19/2018 ) Disp: 90 capsule Rfl: 0 mometasone (NASONEX) 50 mcg/actuation nasal spray 2 puffs in each nostrils daily (Patient not taking: Reported on 03/19/2018 ) Disp: 3 Bottle Rfl: 3 methylPREDNISolone (MEDROL, MELODY,) 4 mg tablet Follow dosing instructions, take by mouth with food. (Patient not taking: Reported on 03/19/2018 ) Disp: 1 Package Rfl: 0 No current facility-administered medications for this visit. Last Plavix dose was Monday evening ALLERGIES: Prilosec [Omeprazole] PERSONAL HISTORY: Social History Marital status: Spouse name: Years of education: Number of children: Social History Main Topics Smoking status: Never Smoker Smokeless tobacco: Never Used Alcohol use: No Drug use: No FAMILY HISTORY: FAMILY HISTORY Problem Relation Age of Onset - Heart Mother ASHD,valve disease - Ischemic Heart Disease Father 80 - Hypertension Father - Diabetes Father - Ischemic Heart Disease Sister - None Sister - None Sister - None Sister REVIEW OF SYMPTOMS: The review of systems data was entered by the nurse and reviewed by ok Nursing Notes: Maribeth Carrizales RN 03/19/2018 9:26 AM Signed REVIEW OF SYSTEMS: General: The patient denies fatigue, denies weight loss, denies weight gain, denies feeling hot, and denies feelings of cold. Eyes: The patient denies glaucoma, NOTES eye injury/surgery, wears glasses or contacts. Ear/Nose/Throat: The patient NOTES allergies, denies hayfever, denies ear infections, and denies bloody noses. Cardiovascular: The patient denies chest pain, NOTES heart disease, denies high blood pressure,NOTES cardiac stent, NOTES prior heart attack, denies irregular heart beat, denies high cholesterol, denies poor circulation, denies heart failure, other cardiac issues, denies claudication, denies cold feet, denies peripheral arterial stent. Respiratory: The patient denies tuberculosis, denies pneumonia, denies frequent cough, denies pulmonary embolism, denies shortness of breath, and denies coughing up blood. Gastrointestinal: The patient denies difficulty swallowing, denies acid reflux, denies ulcers, denies vomiting, denies jaundice/hepatitis, denies gallbladder problems, denies black or tarry stools, denies hemorrhoids, NOTES bleeding from rectum, denies diverticulitis, denies constipation, denies diarrhea, denies loss of stool control, and denies hernias. Kidney/Bladder: The patient notes kidney stones, denies urine infections, and denies bloody urine. Skin: The patient denies a history of skin cancer, denies bleeding/changing moles, and denies a history of skin rash. Neurologic: The patient denies a history of epilepsy/convulsions, denies headaches, denies head/spinal injuries, and denies stroke/TIA. Psychiatric: The patient denies psychiatric medications, denies depression, and denies voices, denies substance abuse. Endocrine: The patient denies thyroid disorders, denies diabetes, and denies hormonal problems. Hematologic: The patient denies a history of bruising, denies bleeding, and denies anemia, denies blood clots. Infections: The patient denies a history of measles and mumps, denies rheumatic fever, and denies sexually transmitted diseases. Musculoskeletal: The patient denies back pain/injury, notes back problems, notes sciatica, denies knee/foot trouble, denies arthritis, or denies gout. When was patient's last Mammogram screening? N/A Last Colonoscopy: 02/2018 Maribeth Carrizales RN PHYSICAL EXAMINATION: General: The patient is 68 year old male, well nourished, well hydrated in no acute distress. The patient is oriented to time, place, and person. VITALS: BP 120/70 (BP Site: Right Arm, BP Position: Sitting, BP Cuff Size: Large Adult) Pulse 66 Temp 36.9 ?C (98.4 ?F) Ht 180.3 cm (5' 11) Wt 103.4 kg (228 lb) BMI 31.80 kg/m? Body mass index is 31.8 kg/m?. HEENT: Normal cephalic, ataumatic, pupils are equally round, sclera are anicteric, mucous membranes are moist, oropharynx is clear. Neck has no masses, asymmetry or lymphadenopathy. Thyroid is unremarkable. Respiratory: Clear to auscultation and percussion. Normal respiratory excursion and pattern. Cardiac: Examination is regular rate and rhythm. Abdominal exam: Soft, nontender, with no palpable masses. No hepatosplenomegaly. A small nonreducible umbilical hernia, no obvious inguinal hernias. Rectal exam: exam deferred Extremities: no clubbing, cyanosis or edema. No adenopathy. LABORATORY VALUES: As Noted RADIOLOGIC STUDIES: As Noted Assessment IMPRESSION: Transverse colon cancer PLAN: We extensively discussed the diagnosis and discussed the surgical options. The patient has elected to undergo colon resection I plan to perform a Laparoscopic colectomy partial right hemicolectomy- 42572-332. The planned surgical procedure was discussed extensively with the patient. The risks, benefits, anticipated outcomes and possible complications and alternatives were discussed. My staff has also explained the procedure in understandable terms and the patient was given the option to take printed material concerning the planned procedure. The patient had the opportunity to ask questions concerning the planned procedure. The patient freely consents to the planned procedure. I will plan for outpatient bowel preparation including mechanical and antibiotic preparation including Neomycin and Flagyl 1gm each at 6,8, and 10pm the night before surgery. The patient received 1 unit of packed red cells while in the hospital last week. I will repeat a hemoglobin in the morning before surgery and obtain a CEA level. Anticipated Surgical Procedure/ CPT Code: Laparoscopic colectomy partial right hemicolectomy- 44999-330 Anticipated Anesthetic: General Patient weight: Blood pressure 120/70, pulse 66, temperature 36.9 ?C (98.4 ?F), height 180.3 cm (5' 11), weight 103.4 kg (228 lb). BMI: Body mass index is 31.8 kg/m?. Planned antibiotic: Cefotetan 2gm IVPB enterprise application administrator to OR SCDs needed - Yes Business Support Liaison Needed - Yes Diagnoses: (C18.4) Malignant neoplasm of transverse colon (HCC) (primary encounter diagnosis) A letter was sent to Dr. Octavia LUKE indicating the above finding for this patient. Return to Clinic: The patient is instructed to follow-up with me 1 week post operatively. Chris Ferreira MD I have reviewed the above history and physical exam. There have been no significant changes Chris Ferreira MD 03/19/2018 Letter Text Encounter Status:Closed by CHRIS FERREIRA MD on 03/19/18 DISCHARGE SUMMARY Observed: 03/17/2018 Status: F Source: [place] 2:23 PM [facility] REPOSITORY [facility] Medical Records Department [address] [place] [address] Discharge Summary 03/17/18 1418 MR#: [id number] Acct: [id number] Name: MYRNA JORGENSEN Jr. Rep #: [id number] : 1950 68 From: Yonathan Pozo DO PCP: Shlomo Dudley DO Status: ADM IN Location: [place] [address] Discharge Date and Diagnosis - Problem List Patient Problems: Active and Suspected Problems (Last Reviewed 03/14/18 @ 14:28 by Yonathan Pozo DO) GI bleed (Acute) Anemia (Acute) Colonic mass (Acute) Preop cardiovascular exam (Acute) Date of Admission: 03/14/18 Date of Discharge: 03/17/18 - Primary Discharge Diagnosis Active and Suspected Problems (Last Reviewed 03/14/18 @ 14:28 by Yonathan Pozo DO) GI bleed (Acute) Anemia (Acute) Colonic mass (Acute) Preop cardiovascular exam (Acute) - Secondary Discharge Diagnosis Chronic Problems (Last Reviewed 03/14/18 @ 14:28 by Yonathan Pozo DO) S/P PTCA (percutaneous transluminal coronary angioplasty) (Chronic) Hyperlipemia, mixed (Chronic) Essential (primary) hypertension (Chronic) Atherosclerotic heart disease of saxman coronary artery without angina pectoris (Chronic) HTN (hypertension) (Chronic) HLD (hyperlipidemia) (Chronic) Peptic ulcer disease (Chronic) Hospital Course and Treatment Imaging Results: Clinical Impression(s) from Imaging Studies Abdomen/Pelvis CT 03/14/18 08:22 IMPRESSION: Relatively focal thickening within the mid transverse colon. This can be further evaluated with endoscopy or contrast enema, as clinically indicated. Question mild wall thickening within the distal esophagus. This may represent esophagitis. Cholelithiasis. Additional findings, as detailed above. Electronically Signed: Cj Glover DO at 10:36 EDT Tel , Service support , KUB X-Ray 03/16/18 06:41 IMPRESSION: Findings suggestive of an ileus gas pattern. Electronically Signed: Dylan Abdalla MD at 8:39 EDT Tel [phone], Service support , Lorenza Grigsby Operations: None Procedures: Colonoscopy, EGD Summary of Care Provided: The patient is a 68 year old M GI bleed. Patient was seen in consultation by general surgery as well as cardiology. Patient underwent an EGD and colonoscopy to have a colonic mass. The bleeding was coming from the colonic mass but also comp gated by the patient's dual antiplatelet therapy that she is a coronary stent that had placed in April 2017. Plavix is discontinued patient will continue with aspirin given the stent. Plan is for the patient to have a partial colectomy performed on March [address] Valle. Patient was transfused 1 unit of packed red blood cells while he was here. Patient's hemoglobin has been stable though he did have a drop from 13.4 to 8.4. 1. Acute blood loss anemia * Secondary to GI bleed * hemoglobin has gone from 13.4 to 8.4 * Continue to monitor * Was transfused 1 unit last night * Will type and screen but not transfuse at this time. * recheck Hg, if stable or up, can likely be discharged today. 2. GI bleed * Secondary to colonic mass and antiplatelet medications * Monitor for now. * Still with some blood. 3. Colon mass * Plan is for surgery on 20 March * It will be determined the patient will continue to be hospitalized during the that time or if he can go home and follow-up 4. Coronary artery disease * Stent placed in April 2017 * Back on ASA * Plavix held due to anemia and GI, plus upcoming surgery. [] Discharge Diet: Soft diet Discharge Activity: Return to Normal Activity Call your doctor if you observe: Chest pain, - - recurrent rectal bleeding. Home Medications: Medications to take at Discharge Psyllium [Metamucil] 1 packet PO DAILY 05/13/17 Rabeprazole Sodium [Aciphex] 20 mg PO BID 05/13/17 Tamsulosin HCl [Flomax] 0.4 mg PO QHS 05/13/17 Aspirin E.C. [Ecotrin] 81 mg PO DAILY@0800 #30 tablet 05/16/17 Isosorbide Mononitrate [Imdur] 30 mg PO DAILY #30 tab 05/16/17 Lisinopril [Zestril] 20 mg PO DAILY #30 tab 05/16/17 Metoprolol Tartrate [Lopressor (beta mandeep)] 25 mg PO BID #60 tab 05/16/17 atorvastatin 80 mg tablet 80 mg PO QHS 08/24/17 docusate sodium 100 mg capsule 100 mg PO BID 08/25/17 triamcinolone acetonide 55 mcg/actuation nasal spray,aerosol 2 spray INTRANASAL QHS 08/25/17 Glucosamine/MSM/Chondroitin A [Glucosamine Chondroit MSM Tab] 1 each PO DAILY 03/14/18 Polyethylene Glycol 3350 [Miralax] 17 gm PO DAILY 03/14/18 Lisinopril [Zestril] 20 mg PO DAILY tablet 03/17/18 Primary Care Physician: Shlomo Dudley DO [Primary Care Provider] - Within 2 Weeks Please Follow Up With: Chris Ferreira MD When: 03/19/18 Please Follow Up With: Esteban Grigsby MD When: 1 month Disposition: Home Minutes spent on discharge:: 35 Patient Condition:: Good Medical Necessity - Tobacco Use Smoking Status: Never smoker Meaningful Use Info Meaningful Use Diagnoses (Choose all that apply): None applicable Code Visit Inpatient E AND M: 31686 Disch Hosp 03/17/18 1423 <Electronically signed by Yonathan Pozo DO> Date Yonathan Pozo DO Cosigner Signature (if applicable): Date CC: Yonathan Pozo DO; Esteban Grigsby MD; Shlomo Dudley DO Signed DISCHARGE INSTRUCTION Observed: 03/17/2018 Status: F Source: [place] 2:17 PM [facility] REPOSITORY [facility] Medical Records Department [address] [place] [address] Instructions for Home/Discharge Instructions 03/17/18 1415 MR#: [id number] Acct: [id number] Name: MYRNA JORGENSEN Jr. Rep #: [id number] : 1950 68 From: Yonathan Pozo DO PCP: Shlomo Dudley DO Status: ADM IN - Discharge Diagnoses Current Active Problems: Current Active and Chronic Problems (Last Reviewed 03/14/18 @ 14:28 by Yonathan Pozo DO) GI bleed (Acute) S/P PTCA (percutaneous transluminal coronary angioplasty) (Chronic) Anemia (Acute) Colonic mass (Acute) Preop cardiovascular exam (Acute) You will use the following diet at home:: Other - Mechanical soft. Ground meats. Clear liquid diet starting 04/06/18 Your food should be the consistency of: Mechanical soft (ground) Your liquids should be the consistency of: Regular/Thin Discharge Activity: Return to Normal Activity Call your doctor if you observe: Chest pain, - - recurrent rectal bleeding. Allergies/Adverse Reactions: Allergies omeprazole [From Prilosec] Adverse Reaction (Verified 03/14/18 08:05) lowers WBCs Medications to take at Discharge Psyllium [Metamucil] 1 packet PO DAILY 05/13/17 Rabeprazole Sodium [Aciphex] 20 mg PO BID 05/13/17 Tamsulosin HCl [Flomax] 0.4 mg PO QHS 05/13/17 Aspirin E.C. [Ecotrin] 81 mg PO DAILY@0800 #30 tablet 05/16/17 Isosorbide Mononitrate [Imdur] 30 mg PO DAILY #30 tab 05/16/17 Lisinopril [Zestril] 20 mg PO DAILY #30 tab 05/16/17 Metoprolol Tartrate [Lopressor (beta mandeep)] 25 mg PO BID #60 tab 05/16/17 atorvastatin 80 mg tablet 80 mg PO QHS 08/24/17 docusate sodium 100 mg capsule 100 mg PO BID 08/25/17 triamcinolone acetonide 55 mcg/actuation nasal spray,aerosol 2 spray INTRANASAL QHS 08/25/17 Glucosamine/MSM/Chondroitin A [Glucosamine Chondroit MSM Tab] 1 each PO DAILY 03/14/18 Polyethylene Glycol 3350 [Miralax] 17 gm PO DAILY 03/14/18 Lisinopril [Zestril] 20 mg PO DAILY tablet 03/17/18 Primary Care Physician: Shlomo Dudley DO [Primary Care Provider] - Within 2 Weeks Please Follow Up With: Chris Ferreira MD When: 03/19/18 Please Follow Up With: Esteban Grigsby MD When: 1 month Proposed Discharge Date: 03/17/18 03/17/18 1417 <Electronically signed by Yonathan Pozo DO> Date Yonathan Pozo DO CC: Lorenza Cueva MD; Shlomo Dudley DO CBC W/DIFF, AUTOMATED Collected: 03/17/2018 Status: F Source: [place] 12:10 PM [facility] REPOSITORY TYPE CODE TESTS RESULT OUT OF RANGE REFERENCE UNITS LAB L100.1000 4.4-11.0 K/mm3 Normal WBC 4.8 LAB L100.1200 4.6-6.2 M/mm3 Low RBC 2.99 LAB L100.1300 13.0-16.5 g/dl Low HGB 8.8 LAB L100.1400 40-54 % Low HCT 26.8 LAB L100.1500 80-94 fL Normal MCV 89.6 LAB L100.1600 27.0-32.0 pg Normal MCH 29.4 LAB L100.1700 32-36 g/gl Normal MCHC 32.8 LAB L100.1810 11.6-14.6 % Normal RDW CV 13.3 LAB L100.1820 35.1-43.9 fl Normal RDW SD 42.9 LAB L100.1900 150-450 K/mm3 Low PLT 123 LAB L100.2000 6.2-12.0 fl Normal MPV 9.0 LAB L100.2100 47-70 % Normal NEUT% 66.1 LAB L100.2200 19-41 % Low LY% 18.4 LAB L100.2300 0-10 % High MONO% 13.2 LAB L100.2400 0-5 % Normal EO% 1.9 LAB L100.2500 0-1 % Normal BASO% 0.2 LAB L100.2550 0.0-0.9 % Normal IM GRAN % 0.200 Result Comment: IG% - Immature Granulocytes (promyelocytes, myelocytes and metamyelocytes) > 1% indicates that a LEFT SHIFT is Present. LAB L100.2620 2.0-7.7 X10 3/uL Normal Absolute Neut 3.2 LAB L100.2720 0.83-4.51 X10 3/ul Normal Absolute Lymph 0.88 Performed By: #### L100.0100 #### [facility] [address] [place], [place], [address] CBC-COMPLETE BLOOD CNT Collected: 03/17/2018 Status: F Source: [place] NO DIFF 6:31 AM [facility] REPOSITORY TYPE CODE TESTS RESULT OUT OF RANGE REFERENCE UNITS LAB L100.1000 4.4-11.0 K/mm3 Normal WBC 4.5 LAB L100.1200 4.6-6.2 M/mm3 Low RBC 2.81 LAB L100.1300 13.0-16.5 g/dl Low HGB 8.4 LAB L100.1400 40-54 % Low HCT 25.7 LAB L100.1500 80-94 fL Normal MCV 91.5 LAB L100.1600 27.0-32.0 pg Normal MCH 29.9 LAB L100.1700 32-36 g/gl Normal MCHC 32.7 LAB L100.1810 11.6-14.6 % Normal RDW CV 13.1 LAB L100.1820 35.1-43.9 fl Normal RDW SD 41.9 LAB L100.1900 150-450 K/mm3 Low PLT 121 LAB L100.2000 6.2-12.0 fl Normal MPV 9.6 Performed By: #### L100.0500 #### [facility] [address] [place], [address] ECHOCARDIOGRAM COMPLETE Observed: 03/16/2018 Status: F Source: [place] 4:34 PM [facility] REPOSITORY [facility] Cardiovascular Services [address] [place] [address] Echo Complete 03/16/18 0917 MR#: [id number] Acct: [id number] Name: MYRNA JORGENSEN Jr. Rep #: [id number] : 1950 68 From: Esteban Grigsby MD Attending Dr: Yonathan Pozo DO Status: ADM IN Ordering Dr: Esteban Grigsby MD Date: 03/16/18 Location: U Sex: M C Admitted: 03/14/18 Reason For Study: CAD/ASHD Procedure This was a 2D Doppler, Color Flow transthoracic echocardiogram. The exam was of fair technical quality due to diminished acoustic windows. The study was technically difficult. Exam performed portable in patient room. Left Ventricle Normal LV size. Mild concentric left ventricular hypertrophy. Segmental dysfunction with preserved ejection fraction (see wall motion). The estimated ejection fraction is 65 %. Infero-Basal: Hypokinetic. Right Ventricle Normal RV size. Normal systolic function. Atria Normal left atrium. Normal right atrium. No doppler evidence for ASD. Mitral Valve There is no mitral annular calcification. Normal mitral valve. Trivial mitral valve insufficiency. Tricuspid Valve Normal tricuspid valve. Mild tricuspid valve insufficiency. Unable to estimate RV systolic pressure/pulmonary artery pressure due to technically difficult study. Aortic Valve Trisinus/trileaflet aortic valve. Moderate focal aortic valve calcification. Pulmonic Valve The pulmonic valve is not well visualized. Great Vessels Normal sized aortic root. Pericardium/Pleural No pericardial effusion. MMode/2D Measurements AND Calculations LVIDd: 5.0 cm IVSd: 1.4 cm LVOT diam: 2.1 cm LVIDs: 3.0 cm LVPWd: 1.4 cm LVOT area: 3.5 cm2 RVDd: 3.8 cm FS: 40.5 % Ao root diam: 2.9 cm LAV(MOD-bp): 54.5 ml RVOT diam: 2.6 cm LAV(MOD-bp) Indexed: 24.4 ml/m2 LAV(MOD-sp2): 57.9 ml LAV(MOD-sp4): 50.4 ml EDV(MOD-sp4): 122.0 ml SV(MOD-sp4): 74.9 ml LA A4 area: 19.0 cm2 ESV(MOD-sp4): 47.0 ml EF(MOD-sp4): 61.4 % RA A4 area: 12.5 cm2 Doppler Measurements AND Calculations MV E max bharati: 118.6 cm/sec Lat Peak E' Bharati: 8.3 cm/sec Med Peak E' Bharati: 8.9 cm/sec MV A max bharati: 89.5 cm/sec E/E' lat: 14.4 E/E' med: 13.3 MV E/A: 1.3 Ao V2 max: 283.4 cm/sec LV V1 max: 158.1 cm/sec SV(LVOT): 115.1 ml Ao max P.1 mmHg LV V1 max P.0 mmHg Ao V2 mean: 193.6 cm/sec LV V1 mean P.4 mmHg Ao mean P.9 mmHg LV V1 mean: 120.1 cm/sec Ao V2 VTI: 49.1 cm LV V1 VTI: 32.8 cm ANGELES(I,D): 2.3 cm2 ANGELES(V,D): 2.0 cm2 PA V2 max: 252.1 cm/sec SV(RVOT): 123.4 ml Qp/Qs: 1.1/1.0 PA max PG (full): 22.1 mmHg PA V2 mean: 169.7 cm/sec PA mean PG (full): 10.7 mmHg PA V2 VTI: 48.7 cm Interpretation Summary The study was technically difficult. Segmental dysfunction with preserved ejection fraction (see wall motion). The estimated ejection fraction is 65 %. Mild concentric left ventricular hypertrophy. Trivial mitral valve insufficiency. Mild tricuspid valve insufficiency. Moderate focal aortic valve calcification. Unable to estimate RV systolic pressure/pulmonary artery pressure due to technically difficult study. Transmitral diastolic flow velocities suggest diastolic dysfunction (pseudonormal pattern). Ordering Physician: Esteban Grigsby Referring Physician: Shlomo Dudley Performed By: Gia Will RDCS, RVT 03/16/18 1634 Date Esteban Grigsby MD CC: Yonathan Pozo DO; Esteban Grigsby MD; Shlomo Dudley DO Date Dictated: 03/16/18916 Date Transcribed: 03/16/181633 Managed Security Sales Consultant: Signed ABDOMEN SINGLE VIEW Observed: 03/16/2018 Status: F Source: [place] 6:43 AM [facility] REPOSITORY [facility] Imaging Services [address] [place] [id number] Abdomen Single View MR#: [id number] Acct: [id number] Name: MYRNA JORGENSEN Jr. Rep #: [id number] : 1950 M 68 From: Dylan Abdalla MD PCP: Shlomo Dudley DO Status: ADM IN Study: Abdomen Single View Date of Exam: 03/16/18 Exam# [id number] Ordering Dr: Chris Ferreira MD STUDY: X-RAY - ABDOMEN/PELVIS REASON FOR EXAM: Male, 68 years old. Abdominal distention. GI bleed. History of a carcinoma of the transverse colon. TECHNIQUE: AP supine and upright views of the abdomen and pelvis. COMPARISON: None. FINDINGS: Normal visualized lung bases. Gas is seen throughout small bowel loops and colon. Small bowel loops are markedly dilated. This is suggestive of an ileus pattern. There is no demonstrated free abdominal air. The visualized liver, spleen and kidneys are grossly normal in size and morphology. There are calcified phleboliths in the pelvis. Normal visualized osseous structures. RAD/Abdomen Single View IMPRESSION: Findings suggestive of an ileus gas pattern. Electronically Signed: Dylan Abdalla MD at 8:39 EDT Tel [phone], Service support , CC: Chris Ferreira MD; Shlomo Dudley DO Managed Security Sales Consultant: Signed CBC W/DIFF, AUTOMATED Collected: 03/16/2018 Status: F Source: [place] 5:25 AM [facility] REPOSITORY TYPE CODE TESTS RESULT OUT OF RANGE REFERENCE UNITS LAB L100.1000 4.4-11.0 K/mm3 Normal WBC 6.4 LAB L100.1200 4.6-6.2 M/mm3 Low RBC 2.89 LAB L100.1300 13.0-16.5 g/dl Low HGB 8.5 LAB L100.1400 40-54 % Low HCT 26.4 LAB L100.1500 80-94 fL Normal MCV 91.3 LAB L100.1600 27.0-32.0 pg Normal MCH 29.4 LAB L100.1700 32-36 g/gl Normal MCHC 32.2 LAB L100.1810 11.6-14.6 % Normal RDW CV 12.6 LAB L100.1820 35.1-43.9 fl Normal RDW SD 40.4 LAB L100.1900 150-450 K/mm3 Low PLT 123 LAB L100.2000 6.2-12.0 fl Normal MPV 9.4 LAB L100.2100 47-70 % High NEUT% 75.1 LAB L100.2200 19-41 % Low LY% 11.4 LAB L100.2300 0-10 % High MONO% 12.9 LAB L100.2400 0-5 % Normal EO% 0.3 LAB L100.2500 0-1 % Normal BASO% 0.3 LAB L100.2550 0.0-0.9 % Normal IM GRAN % 0.000 Result Comment: IG% - Immature Granulocytes (promyelocytes, myelocytes and metamyelocytes) > 1% indicates that a LEFT SHIFT is Present. LAB L100.2620 2.0-7.7 X10 3/uL Normal Absolute Neut 4.8 LAB L100.2720 0.83-4.51 X10 3/ul Low Absolute Lymph 0.73 Performed By: #### L100.0100 #### [facility] [address], [address] CONSULTATION Observed: 03/15/2018 Status: F Source: [place] 5:50 PM [facility] REPOSITORY [facility] Medical Records Department [address] [place] [address] Consultation 03/15/18 1724 MR#: [id number] Acct: [id number] Name: MYRNA JORGENSEN Jr. Rep #: [id number] : 1950 68 From: Esteban Grigsby MD PCP: Shlomo Dudley DO Status: ADM IN Y Location: [place] [address] Problem List (1) Atherosclerotic heart disease of saxman coronary artery without angina pectoris Status: Chronic Qualifiers: [place] vs. transplanted heart: saxman heart Qualified Code(s): I25.10 - Atherosclerotic heart disease of saxman coronary artery without angina pectoris; I25.10 - Atherosclerotic heart disease of saxman coronary artery without angina pectoris; I25.10 - Atherosclerotic heart disease of saxman coronary artery without angina pectoris (2) S/P PTCA (percutaneous transluminal coronary angioplasty) Status: Chronic (3) HLD (hyperlipidemia) Status: Chronic Qualifiers: Hyperlipidemia type: unspecified Qualified Code(s): E78.5 - Hyperlipidemia, unspecified (4) HTN (hypertension) Status: Chronic (5) Anemia Status: Acute (6) GI bleed Status: Acute (7) Colonic mass Status: Acute (8) Preop cardiovascular exam Status: Acute Reason for Consult Date of Consultation: 03/15/18 History of Present Illness: The patient is a 68 year old white male with a past cardiovascular history of an underlying CAD, non-ST segment elevation SC, status post RCA PTCA/stent, hyperlipidemia, hypertension, who is undergoing evaluation for gastrointestinal bleeding thought related to underlying colonic mass concerning for colon carcinoma. Since the patient's last outpatient cardiovascular visit on 08/28/2017 he states overall from a cardiac standpoint he has been doing well. He continues to exercise on his treadmill at 4 mph for approximately 8 miles. He states he feels good doing that. He has had no classic symptoms of angina pectoris at rest or with exertion. There has been no evidence of CHF or pulmonary edema. There has been no near syncope or syncope. He has not undergone additional cardiovascular diagnostic studies or therapeutic intervention. He states that recently, when having a bowel movement, he noted bleeding. He has now been evaluated in the hospital for anemia secondary to gastrointestinal bleeding. He has been found on colonoscopy to have concerns of an underlying colonic mass. According to Dr. Ferreira, via telephone conversation he initiated, he was concerned of underlying colon carcinoma and that the patient would require upcoming general surgery. Thus, based on his cardiovascular disease history, he requested cardiovascular consultation. In the interim the patient's antiplatelet therapy with respect to his aspirin and clopidogrel/Plavix therapy has been placed on hold. He has continued his other cardiovascular medications as his heart rate and blood pressure allow. [] Past Medical History Allergies/Adverse Reactions: Allergies omeprazole [From Prilosec] Adverse Reaction (Verified 03/14/18 08:05) lowers WBCs Home Medications: Ambulatory Orders Medication Instructions Recorded Psyllium [Metamucil] 1 packet PO DAILY 05/13/17 Past Medical History (Chronic Problems): Chronic Problems (Last Reviewed 03/14/18 @ 14:28 by Yonathan Pozo DO) S/P PTCA (percutaneous transluminal coronary angioplasty) (Chronic) Hyperlipemia, mixed (Chronic) Essential (primary) hypertension (Chronic) Atherosclerotic heart disease of saxman coronary artery without angina pectoris (Chronic) HTN (hypertension) (Chronic) HLD (hyperlipidemia) (Chronic) Peptic ulcer disease (Chronic) Surgical History: angioplasty, - - kidney stone removal w/stent, rectal surgery, laser eye surgery, right wrist cyst removed. - *Family History Paternal Family History: Family History (Last Reviewed 03/14/18 @ 14:29 by Yonathan Pozo DO) Father CAD (coronary artery disease) Mother CAD (coronary artery disease) History Items: Heart Disease Maternal Family History: Family History (Last Reviewed 03/14/18 @ 14:29 by Yonathan Pozo DO) Father CAD (coronary artery disease) Mother CAD (coronary artery disease) History Items: Heart Disease Lives: Spouse/ Significant Other Smoking Status: Never smoker Alcohol: None Drugs: None Review of Systems - Review of Systems General: Denies: Fever, Night Sweats, Fatigue Cardiovascular: Denies: Chest Discomfort, Shortness of Breath, Orthopnea, PND, Peripheral Edema, Palpitations, Lightheadedness, Dizziness, Near Syncope, Syncope Respiratory: Denies: Cough, Sputum Production, Hemoptysis Gastrointestinal: Reports: Hematochezia. Denies: Hematemesis, Melena Genitourinary: Denies: Dysuria, Hematuria Skin: Denies: Rash Subjectve: This is a 68-year-old white male who appears to be resting comfortably at the moment in no acute distress. Objective: Vital Signs Temp Pulse Resp BP Pulse Ox 98.5 F 77 16 108/55 L 97 03/15/18 17:00 03/15/18 17:00 03/15/18 17:00 03/15/18 17:00 03/15/18 17:00 Oxygen Flow Rate (L/min) 6 Oxygen Delivery Method Room Air Weight: 230 lb 2.601 oz Body Mass Index (BMI) 32.1 Intake and Output for Last 24 Hours Intake Total 2877 / 2877 1793 / 1793 Output Total 450 / 450 1974 Balance 2427 / 2427 -182 / -182 General: Awake, Alert, Oriented x 3, Cooperative, No Acute Distress HEENT: Atraumatic, Normocephalic, PERRL, EOMI, Sclera Non Icteric Oral: Moist Mucosa Neck: Supple, Good ROM, No JVD Lungs: Clear to auscultation Cardiovascular: Regular Rhythm, Premature Ectopic Beats, Normal S1, Normal S2, Positive S4 Vascular: No Carotid Bruits Abdomen: Bowel Sounds Present, Soft, Non Tender Extremities: No Cyanosis, No Clubbing, No edema Neurological: No Focal Motor or Sensory Deficit Psych/Mental Status: Appropriate, Normal Affect 03/14/18 18:01: WBC 5.6, RBC 4.11 L, Hgb 12.1 L, Hct 36.5 L, MCV 88.8, MCH 29.4, MCHC 33.2, RDW 12.6, RDW Differential 40.5, Plt Count 140 L, MPV 9.2, Immature Gran % (Auto) 0.200, Neut % (Auto) 75.0 H, Lymph % (Auto) 18.4 L, [place] % (Auto) 5.3, Eos % (Auto) 0.9, Baso % (Auto) 0.2, Absolute Neuts (auto) 4.2, Total Counted Not Reportable 03/14/18 21:57: Hgb 10.9 L, Hct 32.6 L 03/15/18 06:00: Sodium 143, Potassium 3.9, Chloride 110 H, Carbon Dioxide 26.0, Anion Gap 7, BUN 11, Creatinine 1.12, Est GFR (MDRD) Af Amer 84, Est GFR (MDRD) Non-Af 70, BUN/Creatinine Ratio 9.8 L, Glucose 123 H, Calcium 8.1 L 03/15/18 06:00: WBC 5.6, RBC 3.68 L, Hgb 10.7 L, Hct 32.5 L, MCV 88.3, MCH 29.1, MCHC 32.9, RDW 12.7, RDW Differential 40.6, Plt Count 145 L, MPV 9.0, Immature Gran % (Auto) 0.200, Neut % (Auto) 77.6 H, Lymph % (Auto) 14.6 L, Johnston % (Auto) 6.9, Eos % (Auto) 0.5, Baso % (Auto) 0.2, Absolute Neuts (auto) 4.4, Total Counted Not Reportable 03/15/18 06:00: Hemoglobin A1c 5.9 03/15/18 14:20: WBC 4.1 L, RBC 3.04 L, Hgb 9.0 L, Hct 26.9 L, MCV 88.5, MCH 29.6, MCHC 33.5, RDW 12.8, RDW Differential 41.3, Plt Count 125 L, MPV 8.8, Immature Gran % (Auto) 0.000, Neut % (Auto) 74.8 H, Lymph % (Auto) 17.4 L, Johnston % (Auto) 7.1, Eos % (Auto) 0.5, Baso % (Auto) 0.2, Absolute Neuts (auto) 3.1, Total Counted Not Reportable Rhythm: Sinus rhythm; PVCs ECHO: 05/13/2017: Left ventricular regional wall motion abnormalities with overall preserved LVEF of 60%; trivial MR/TR; mild focal aortic valve calcification; unable to estimate RV systolic pressure due to a technically difficult study; decreased diastolic compliance Stress Test: 05/30/2017: Exercise tolerance test: Technically adequate (percent predicted maximal heart rate greater than 85%) exercise tolerance test with a peak ECG demonstrating somatic/motion artifact with beat to beat nonspecific ST segment variability with resolution towards baseline beginning by 1 minute in recovery with subsequent notation of approximately 0.5-1.[address] segment depression in leads I, II, III, aVF, and V4 through V6 during recovery-at approximately 5 minutes into recovery-with gradual resolution towards baseline at approximately 10 minutes into recovery; rare PVC during exercise and recovery Cardiac Cath: 05/15/2017: Left main coronary artery normal; LAD with proximal and mid 25% stenosis; second diagonal branch with proximal long diffuse 85% stenosis-small caliber bifurcating vessel; diagonal branch #3 occluded; LCx with mid 10-25% stenosis; OM 2 with proximal 50-75% stenosis-small caliber vessel; RCA with proximal eccentric 99% stenosis; collateral flow from the left to the right PCI: 05/15/2017: RCA PTCA/JAYLIN Assessment/Plan 1. CAD status post non-ST segment elevation SC-remote status post RCA PTCA/JAYLIN At the present time he appears to be doing well from a cardiac standpoint with no acute cardiovascular complaints suspicious for his underlying CAD process. Based upon his need for upcoming noncardiovascular surgery he will have additional testing with a 12-lead ECG as well as a transthoracic echocardiogram to evaluate her left ventricular wall motion and systolic function which may provide additional information which may be important with respect to upcoming general anesthesia and noncardiovascular surgery. In the interim he will continue medical management which will include his nitrates, beta-blockers, ANETA inhibitors, lipid-lowering agents. It appears prudent at this time, based upon his continued anemia due to the gastrointestinal bleeding process secondary to the underlying colonic mass that he be without his aspirin therapy and clopidogrel/Plavix therapy. Really he would be without clopidogrel/Plavix therapy for approximately 5 days prior to an upcoming surgical procedure. 2. Hyperlipidemia He will continue lipid-lowering therapy as deemed appropriate. 4. Hypertension His blood pressure will be monitored. His medications may need to be adjusted as deemed appropriate. 5. Anemia secondary to GI bleeding process secondary to colonic mass concerning for colon carcinoma His H AND H should be followed. If his H AND H declines he may need PRBCs to assist with his oxygen carrying capacity or to his noncardiovascular surgery. 6. Preoperative cardiovascular examination At the present time the patient appears to be without obvious acute cardiovascular symptoms. He does not appear at this time to require additional preoperative cardiovascular evaluation studies, other than those noted above, with respect to exercise tolerance test/imaging study or diagnostic cardiac catheterization, barring some unforeseen change in his clinical status. He should continue on medical management as best as possible in and around the time of his surgical procedure especially with respect to his beta-blockers. He would need close follow-up of his cardiac rate and rhythm and blood pressure during and following his surgical procedure. An attempt should be made to avoid excessive IV volume overload that could bring out CHF/pulmonary edema. Following his surgical procedure be reasonable to restart his aspirin and antiplatelet therapy when able from a surgical standpoint. Comment: The patient's case has been previously discussed with Dr. Ferreira. This note was generated with [employer] software. It may contain incorrect words, spelling, and punctuation that were not noted in checking the note before signing. 03/15/18 1750 <Electronically signed by Esteban Grigsby MD> Date Esteban Grigsby MD Cosigner Signature (if applicable): Date CC: Lorenza Cueva MD; Chris Ferreira MD; Shlomo Dudley DO Signed CONSULTATION Observed: 03/15/2018 Status: F Source: [place] 5:11 PM [facility] REPOSITORY [facility] Medical Records Department [address] [facility] [address] Consultation 03/14/18 1239 MR#: [id number] Acct: [id number] Name: MYRNA JORGENSEN Jr. Rep #: [id number] : 1950 68 From: Lorenza Cueva MD PCP: Shlomo Dudley DO Status: ADM IN Y Location: [facility] [id number] - Consult Date of Consult: 03/14/18 - Reason for Consult Chief Complaint: bloody bowel movements History of Present Illness: 68 y/o WM presents with sudden onset of bloody bowel movements - copious amount according to patient, began early this morning around 3:30/4:00am. CT scan reveals focal thickening of transverse colon. Denies previous colonoscopy. Has had occult stool testing intermittently and they have all been negative. No colon cancer known in immediate family. Patient has noted some gaseous distention of his abdomen. Denies any colon problems prior to this. Denies weight loss. Denies diarrhea. Has occasional constipation. Denies abdominal pain. Hgb upon admission was 13.4. Past Medical History: coronary artery disease - s/p stent placement hypertension hyperlipidemia History of peptic ulcer disease Past Surgical History: rectal surgery for rupture? 1979 kidney stone basket removal eye surgery - right coronary artery stent placement May 14, 2017 Medications: aciphex flomax imdur zestril lopressor clopidogrel atorvastatin glucosamine miralax Allergies: omeprazole Social history: TOB use denies , lives with Review of Systems: General - denies fevers, denies weight loss, denies anorexia Cardiovascular denies chest pain, walks 4-5 miles several times per week Pulmonary denies shortness of breath, denies coughing up blood, denies breathing difficulties Gastrointestinal as per HPI, history of peptic ulcers greater than 25 y ago by endoscopy Neurological denies numbness/weakness of extremities, denies seizures, denies history of head trauma, denies history of stroke Genitourinary has benign prostate hypertrophy, denies blood in urine, has history of kidney stones, denies history of kidney infections/failure Hematological denies spontaneous/prolonged bleeding, on aspirin and plavix for coronary artery stent Skin denies open non healing wounds Musculoskeletal has sciatica, complains of left shoulder pain Endocrine denies diabetes Psychological denies suicidal ideation, denies hallucinations Physical examination: Vital signs Temp 97.9F HR 56 RR 16 BP 118/78 Ht: 5'11 Wt: 104.4 kg General WD/WN WM in no apparent distress, alert and oriented, not septic appearing HEENT Normocephalic. EOM intact with sclera clear and no icterus noted. Neck is supple with no jugular venous distention noted. Trachea is midline. Lungs clear to auscultation. normal breath sounds in all lung [place]. No rales/rhonchi/wheezing noted. No labored breathing noted, such as retractions. Heart normal S1 and S2 auscultated. No rubs/clicks/murmurs noted. Normal size and location by auscultation. Abdomen soft and benign, protuberant Normal bowel sounds area auscultated. No abdominal bruits noted. Umbilical hernia present Extremities no calf tenderness noted. No pitting edema noted. Genitourinary/Rectal deferred Skin normal skin integrity. Neurological cranial nerves II-XII intact. Normal motor strength in arms and legs. No localized numbness detected. Psychological normal affect, patient is calm and appropriate Impression: bloody bowel movements abnormal CT scan - transverse colon lesion Discussion/Plan: I have discussed the above with the patient and his who is present with him. I have offered evaluation with colonoscopy/EGD, possible biopsies. Plan for this tomorrow around noon. I have explained the procedure to the patient. I have counseled the patient as to the risks of the procedure, including but not limited to: infection, bleeding, injury to any blood vessels/nerves, scar tissue, injury to any intrabdominal such as the liver/spleen, perforation of the GI tract, inability to complete the procedure, complications of anesthesia, etc. the patient understands. He agrees to proceed. I have answered all questions to the patient s satisfaction and the patient has no further questions. 03/15/18 1711 <Electronically signed by Lorenza Cueva MD> Date Lorenza Cueva MD Cosigner Signature (if applicable): Date CC: Lorenza Cueva MD; Shlomo Dudley DO Signed OPERATIVE REPORT Observed: 03/15/2018 Status: F Source: [place] 5:04 PM [facility] REPOSITORY [facility] Medical Records Department [address] [place] [address] Operative Report 03/15/18 1650 MR#: [id number] Acct: [id number] Name: MYRNA JORGENSEN Jr. Rep #: [id number] : 1950 68 From: Lorenza Cueva MD PCP: Shlomo Dudley DO Status: ADM IN Y Location: [place] [address]-1 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 Colonoscopy with biopsies of mass, clip placed to localize mass, luis ink injected for identification of the mass intraoperatively Description of Surgical Findings:: mild gastritis on EGD with multiple gastric fundic polyps - no bleeding site noted transverse colon mass - actively oozing, no distal lesions noted Type of Anesthesia:: MAC Anesthesiologist: Yonathan Denny Special Medications: luis ink injection at colon mass site Specimen's removed: mucosal biopsy of antrum of stomach. biopsy of transverse colon mass Estimated Blood Loss (mL): < 5 ml Fluids Replaced: see anesthesia note Description of Procedure: After informed consent was given, the patient was brought to the endoscopy suite and placed in the upright sitting position. Appropriate time out protocol was followed. Appropriate cardiac, blood pressure, and pulse oximetry monitoring was placed. After stable vital signs were noted, the patient was given anesthesia by the anesthesiologist. The posterior pharynx was sprayed with lidocaine spray times two and a bite block was placed. The patient was then placed in the left lateral decubitis position. The upper endoscope was lubricated and inserted into the patient s mouth and then carefully placed into the patient s throat. The patient was asked to swallow and the endoscope was then easily advanced into the patient s esophagus. The endoscope was further advanced down into the patient s stomach, then past the pylorus, then past the duodenal bulb and then to the second portion of the duodenum. There were no lesions noted in the duodenum. The endoscope was then retracted back into the stomach. A retroflex view of the stomach revealed no evidence of any masses. No ulcers were noted. The patient had multiple benign appearing gastric fundic polyps. There was minimal erythematous mucosa noted of the antrum of the stomach. Mucosal biopsies using cold grasper forceps were taken of the antral mucosal. A biopsy was done of the one of the gastric fundic polyps. The endoscope was retracted into the esophagus, where any insufflated gas in the stomach was aspirated out. The gastroesophageal junction appeared grossly normal. The remainder of the esophagus was normal. The upper endoscope was removed intact. The next procedure performed was the colonoscopy. The colonoscope was lubricated and carefully inserted into the patient s anus. It was then advanced into the rectum, then into the sigmoid colon, then into the left descending colon, past the splenic flexure, into the transverse colon where a mass was noted that was probably an adenocarcinoma. It was actively oozing. There was blood noted throughout the colon up to this point. Biopsies were taken using cold grasper forceps of this mass. In anticipation for surgery, the mucosa was injected with luis ink. Also a clip was applied to the area for marking also. The colonoscope could not be advanced pas the hepatic flexure. Given the need for extended right hemicolectomy, no further attempt was made. The colonoscope was retracted back and the mucosa distal to the cancerous lesion was carefully examined. There was retained bloody liquid and clots that required lavage and aspiration to visualize the carmona adequately and this took some time. However, no suspicious lesions were noted distal to the transverse colon mass. Retrograde view of the rectum revealed hemorrhoidal disease. The colonoscopy was removed intact. Patient tolerated procedure well. - Complications none noted 03/15/181703 <Electronically signed by Lorenza Cueva MD> Date Lorenza Cueva MD CC: Lorenza Cueva MD; Shlomo Dudley DO Signed TYPE AND SCREEN Collected: 03/15/2018 Status: F Source: [place] 4:45 PM [facility] REPOSITORY Order Comment: Reason for Type AND Screen/Red Cells: ANEMIA TYPE CODE TESTS RESULT OUT OF RANGE REFERENCE UNITS LAB B10.0800 O Normal BLOOD TYPE GEL POSITIVE LAB B100.4000 Normal Antibody NEGATIVE Screen Performed By: #### B101.7450 #### [facility] [address] [place], [address] Collected: 03/15/2018 Status: F Source: [place] 4:45 PM [facility] REPOSITORY TYPE CODE TESTS RESULT OUT OF REFERENCE UNITS RANGE LAB U100.0000 [id number] TRANSFUSED PRODUCT: T AND S with Crossmatch, Red Cells COUNT: 1 Performed By: #### U100.0000 #### [facility] - refer to report for specific site CBC W/DIFF, AUTOMATED Collected: 03/15/2018 Status: F Source: [place] 2:20 PM [facility] REPOSITORY TYPE CODE TESTS RESULT OUT OF RANGE REFERENCE UNITS LAB L100.1000 4.4-11.0 K/mm3 Low WBC 4.1 LAB L100.1200 4.6-6.2 M/mm3 Low RBC 3.04 LAB L100.1300 13.0-16.5 g/dl Low HGB 9.0 LAB L100.1400 40-54 % Low HCT 26.9 LAB L100.1500 80-94 fL Normal MCV 88.5 LAB L100.1600 27.0-32.0 pg Normal MCH 29.6 LAB L100.1700 32-36 g/gl Normal MCHC 33.5 LAB L100.1810 11.6-14.6 % Normal RDW CV 12.8 LAB L100.1820 35.1-43.9 fl Normal RDW SD 41.3 LAB L100.1900 150-450 K/mm3 Low PLT 125 LAB L100.2000 6.2-12.0 fl Normal MPV 8.8 LAB L100.2100 47-70 % High NEUT% 74.8 LAB L100.2200 19-41 % Low LY% 17.4 LAB L100.2300 0-10 % Normal MONO% 7.1 LAB L100.2400 0-5 % Normal EO% 0.5 LAB L100.2500 0-1 % Normal BASO% 0.2 LAB L100.2550 0.0-0.9 % Normal IM GRAN % 0.000 Result Comment: IG% - Immature Granulocytes (promyelocytes, myelocytes and metamyelocytes) > 1% indicates that a LEFT SHIFT is Present. LAB L100.2620 2.0-7.7 X10 3/uL Normal Absolute Neut 3.1 LAB L100.2720 0.83-4.51 X10 3/ul Low Absolute Lymph 0.71 Performed By: #### L100.0100 #### [facility] [address], [address] CBC W/DIFF, AUTOMATED Collected: 03/15/2018 Status: F Source: [place] 6:00 AM [facility] REPOSITORY TYPE CODE TESTS RESULT OUT OF RANGE REFERENCE UNITS LAB L100.1000 4.4-11.0 K/mm3 Normal WBC 5.6 LAB L100.1200 4.6-6.2 M/mm3 Low RBC 3.68 LAB L100.1300 13.0-16.5 g/dl Low HGB 10.7 LAB L100.1400 40-54 % Low HCT 32.5 LAB L100.1500 80-94 fL Normal MCV 88.3 LAB L100.1600 27.0-32.0 pg Normal MCH 29.1 LAB L100.1700 32-36 g/gl Normal MCHC 32.9 LAB L100.1810 11.6-14.6 % Normal RDW CV 12.7 LAB L100.1820 35.1-43.9 fl Normal RDW SD 40.6 LAB L100.1900 150-450 K/mm3 Low PLT 145 LAB L100.2000 6.2-12.0 fl Normal MPV 9.0 LAB L100.2100 47-70 % High NEUT% 77.6 LAB L100.2200 19-41 % Low LY% 14.6 LAB L100.2300 0-10 % Normal MONO% 6.9 LAB L100.2400 0-5 % Normal EO% 0.5 LAB L100.2500 0-1 % Normal BASO% 0.2 LAB L100.2550 0.0-0.9 % Normal IM GRAN % 0.200 Result Comment: IG% - Immature Granulocytes (promyelocytes, myelocytes and metamyelocytes) > 1% indicates that a LEFT SHIFT is Present. LAB L100.2620 2.0-7.7 X10 3/uL Normal Absolute Neut 4.4 LAB L100.2720 0.83-4.51 X10 3/ul Low Absolute Lymph 0.82 Performed By: #### L100.0100 #### [facility] [address] [place], [place], [address] BASIC METABOLIC Collected: 03/15/2018 Status: F Source: [place] [facility]FILE ([facility] 6:00 AM [facility] REPOSITORY TYPE CODE TESTS RESULT OUT OF RANGE REFERENCE UNITS LAB L501.0100 74-106 mg/dL High GLU 123 Result Comment: Fasting Glucose result from 100 to 125 mg/dL suggests IMPAIRED HOMEOSTASIS per A.D.A. criteria. Please note revised GLUCOSE reference range effective 2017. LAB L501.1000 7-18 mg/dL Normal BUN 11 LAB L501.1100 0.70-1.30 mg/dL Normal CREAT,SERUM 1.12 Result Comment: The validity of the calculated GFR AND GFRAA in patients over 70 years has not been determined. Clinical correlation is essential. LAB L501.1110 >60 mL/min Normal EST GFR 70 Result Comment: Non- GFR Calc LAB L501.1115 >60 mL/min Normal EST GFR - AA 84 Result Comment: GFR Calc LAB L501.1255 ml/min Normal Estimated CRCL 68.17 LAB L501.1300 10-20 RATIO Low BUN/CRE 9.8 LAB L501.2200 8.5-10 mg/dL Low .1 CA 8.1 LAB L501.5300 136-14 mmol/L Normal 5 NA 143 LAB L501.5600 3.5-5. mmol/L Normal 1 K 3.9 LAB L501.5900 98-107 mmol/L High CL 110 LAB L501.6100 21.0-3 mmol/L Normal 2.0 CO2 26.0 LAB L501.6200 5-15 Normal GAP 7 Performed By: #### L500.2500 #### [facility] [address] [facility]. [place], [place], [address] HEMOGLOBIN A1C Collected: 03/15/2018 Status: F Source: [place] 6:00 AM [facility] REPOSITORY Order Comment: Comments: ok to add on TYPE CODE TESTS RESULT OUT OF RANGE REFERENCE UNITS LAB L501.9985 4.2-6.3 % Normal HGB A1C 5.9 Performed By: #### L501.9985 #### [facility] [address] [place], [address] GASTRIC BIOPSY Observed: 03/15/2018 Status: F Source: [place] 12:00 AM [facility] REPOSITORY Patient: MYRNA JORGENSEN Jr. : 1950 (68/M) Acct Num: [id number] Phys: Yonathan Pozo DO Unit Num: [id number] Loc: [facility] [id number] Specimen: [id number] Received: 03/15/18 - 1408 Spec Type: Gastric Bx TISSUES TISSUES: A. Gastric mucous membrane B. Gastric mucous membrane C. Transverse colon COMMENT A. The results of immunohistochemistry for Helicobacter pylori will be reported separately ([id number]). C. A fragment of tubular adenoma is also noted. Results of mismatched repair protein (MMR) by immunohistochemistry ([id number]) will be reported separately. GROSS DESCRIPTION A. Received in fixative is one container labeled with the patient's name and designated antral biopsy. The specimen consists of one irregular fragment of becker soft tissue that measures 0.5 x 0.2 x 0.1 cm. . The entire specimen is submitted in one cassette. B. Received in fixative is one container labeled with the patient's name and designated gastric polyp biopsy. The specimen consists of a becker-pink polyp that measures 1.5 x 1 x 0.3 cm. The entire specimen is submitted in one cassette. C. Received in fixative is one container labeled with the patient's name and designated transverse colon mass biopsy. The specimen consists of multiple irregular fragments of light becker soft tissue that in aggregate measure 0.8 x 0.3 x 0.1 cm. The specimen is totally submitted in one cassette. SJ:farida 03/15/18 TC:0 CPT: 95520 x3 HEADER OPERATION: EGD and colonoscopy PRE-OP DIAGNOSIS: GI bleed TISSUE SUBMITTED: A. Antral biopsy, B. Gastric polyp biopsy, C. Transverse colon mass biopsy MICROSCOPIC DESCRIPTION Slides are reviewed. A. The specimen shows fragments of gastric mucosa with chronic inflammatory cell infiltrates in the lamina propria consisting of lymphocytes and plasma cells, consistent with mild chronic gastritis. MICROSCOPIC DIAGNOSIS A. Antral biopsy: Mild gastritis. B. Gastric polyp, biopsy: Fundic gland polyp. C. Transverse colon mass, biopsy: Invasive moderately differentiated adenocarcinoma. See comment. SORAYA:farida 03/16/18 Signed Jagdeep Bocanegra 03/16/18 <signature on file> Performed By: #### PGASB #### [facility] [address], [address] IMMUNOHISTOCHEMISTRY Observed: 03/15/2018 Status: F Source: [place] 12:00 AM [facility] REPOSITORY Patient: MYRNA JORGENSEN Jr. : 1950 (68/M) Acct Num: [id number] Phys: Yonathan Pozo DO Unit Num: [id number] Loc: U IOK493-3 Specimen: [id number] Received: 03/16/18 - 1029 Spec Type: IMMUNO TISSUES TISSUES: Gastric mucous membrane SPECIMEN INFORMATION: Tissue Source: A. Antral biopsy, C. Transverse colon mass, biopsy Clinical Info: GI bleed Specimen Number: [id number] A, C CPT code: 13278b0, 26261K9 METHODOLOGY: Deparaffinized sections of prefer/formalin-fixed tissue or PAP/DQ stained slides are incubated with monoclonal/polyclonal antibodies/oligonucleotide probes. Localization is made via biotin free immunoperoxidase method. Appropriate controls are performed and reacted as expected. Results on target cell population are indicated in the following table: RESULTS: ANTIBODY / CLONE RESULT Block A H Pylori (polyclonal) negative Block C COLON CANCER PROFILE (Prognostic Markers) Ki-67 (30-9) positive P53 (DO-7) positive MSH2 (25D12) positive MSH6 (44) positive MLH-1 (M1) positive PMS2 (YPQ9859) positive DUFFY-2 (SP21) positive These tests were developed and their performance characteristics determined by [facility]. They may not have been cleared or approved by the U.S. Food and Drug Administration. The FDA has determined that such clearance or approval is not necessary. INTERPRETATION: A. Antral biopsy: Negative for Helicobacter pylori organisms. C. Transverse colon mass, biopsy: Invasive adenocarcinoma Result of Microsatellite Instability Study: Negative (no loss of mismatch protein; no microsatellite instability detected). SJ:sandra 03/19/18 PHYSICIAN [facility] INSTIT[facility] [address] [address] Signed Jagdeep Bocanegra 03/19/18 <signature on file> Performed By: #### PIMM #### [facility] [address] [place] [address]. [place], [address] HH, HEMOGLOBIN AND Collected: 03/14/2018 Status: F Source: [place] HEMATOCRIT 9:57 PM [facility] REPOSITORY TYPE CODE TESTS RESULT OUT OF RANGE REFERENCE UNITS LAB L100.1300 13.0-16.5 g/dl Low HGB 10.9 LAB L100.1400 40-54 % Low HCT 32.6 Performed By: #### L100.0600 #### [facility] [address] [place], [place], [address] CBC W/DIFF, AUTOMATED Collected: 03/14/2018 Status: F Source: [place] 6:01 PM [facility] REPOSITORY TYPE CODE TESTS RESULT OUT OF RANGE REFERENCE UNITS LAB L100.1000 4.4-11.0 K/mm3 Normal WBC 5.6 LAB L100.1200 4.6-6.2 M/mm3 Low RBC 4.11 LAB L100.1300 13.0-16.5 g/dl Low HGB 12.1 LAB L100.1400 40-54 % Low HCT 36.5 LAB L100.1500 80-94 fL Normal MCV 88.8 LAB L100.1600 27.0-32.0 pg Normal MCH 29.4 LAB L100.1700 32-36 g/gl Normal MCHC 33.2 LAB L100.1810 11.6-14.6 % Normal RDW CV 12.6 LAB L100.1820 35.1-43.9 fl Normal RDW SD 40.5 LAB L100.1900 150-450 K/mm3 Low PLT 140 LAB L100.2000 6.2-12.0 fl Normal MPV 9.2 LAB L100.2100 47-70 % High NEUT% 75.0 LAB L100.2200 19-41 % Low LY% 18.4 LAB L100.2300 0-10 % Normal MONO% 5.3 LAB L100.2400 0-5 % Normal EO% 0.9 LAB L100.2500 0-1 % Normal BASO% 0.2 LAB L100.2550 0.0-0.9 % Normal IM GRAN % 0.200 Result Comment: IG% - Immature Granulocytes (promyelocytes, myelocytes and metamyelocytes) > 1% indicates that a LEFT SHIFT is Present. LAB L100.2620 2.0-7.7 X10 3/uL Normal Absolute Neut 4.2 LAB L100.2720 0.83-4.51 X10 3/ul Normal Absolute Lymph 1.03 Performed By: #### L100.0100 #### [facility] [address], [address] HISTORY AND PHYSICAL Observed: 03/14/2018 Status: F Source: [place] EXAM 2:34 PM [facility] REPOSITORY [facility] Medical Records Department [address] [place] [address] History and Physical 03/14/18 1427 MR#: [id number] Acct: [id number] Name: MYRNA JORGENSEN Jr. Rep #: [id number] : 1950 68 From: Yonathan Pozo DO PCP: Shlomo Dudley DO Status: ADM IN Y [id number] Problem List (1) GI bleed Status: Acute History of Present Illness Date of Admission: 03/14/18 Chief Complaint: rectal bleeding. The patient is a 68 year old M who was in his normal state of health but today noted blood in his stool 2 at home. Patient presented to the emergency room where he had bloody bowel movements. Patient had a CAT scan that showed some relatively focal thickening within the mid transverse colon. Dr. Cueva, of general surgery, was contacted and see that she would happily see the patient consultation. Patient denies any history of GI bleed before. He denies any abdominal pain but does state that he has some cramping right before he has a bloody bowel movement. 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) I25.10 Chest pain (Acute) R07.9 NSTEMI (non-ST elevated myocardial infarction) (Acute) I21.4 Peptic ulcer disease (Chronic) K27.9 BPH (benign prostatic hyperplasia) N40.0 GERD (gastroesophageal reflux disease) K21.9 Hyperglycemia R73.9 Allergies omeprazole [From Prilosec] Adverse Reaction (Verified 03/14/18 08:05) lowers WBCs Home Medications: Ambulatory Orders Medication Instructions Recorded Psyllium [Metamucil] 1 packet PO DAILY 05/13/17 Surgical History: Surgical History (Last Reviewed 03/14/18 @ 14:28 by Yonathan Pozo DO) H/O removal of cyst Z98.890 History of left heart catheterization Z98.890 PTCA/JAYLIN of proximal RCA 05/15/17 History of percutaneous coronary intervention Z98.890 PTCA/JAYLIN of proximal RCA 05/15/17 History of rectal surgery Z98.890 Kidney stone removal Right eye surgery Surgical History: - - kidney stone removal w/stent, rectal surgery, laser eye surgery, right wrist cyst removed. Smoking Status: Never smoker - *Family History Paternal Family History: Family History (Last Reviewed 03/14/18 @ 14:29 by Yonathan Pozo DO) Father CAD (coronary artery disease) Mother CAD (coronary artery disease) History Items: Heart Disease Maternal Family History: Family History (Last Reviewed 03/14/18 @ 14:29 by Yonathan Pozo DO) Father CAD (coronary artery disease) Mother CAD (coronary artery disease) History Items: Heart Disease Review of Systems Constitutional: Denies: Chills, Fever, Weight Change Eyes: Denies: Blurred vision, Double vision HEENT: Denies: Head Aches, Sinus Congestion, Sinus Drainage Cardiovascular: Denies: Chest Pain, Palpitations Respiratory: Denies: Cough, Shortness of breath at rest, Sputum production Gastrointestinal: Reports: Hematochezia. Denies: Abdominal Pain, Nausea Genitourinary: Denies: Dysuria Musculoskeletal: Denies: Joint Pain, Joint Tenderness Skin: Denies: Rash, Wounds Neurological: Denies: Numbness, Tingling, Focal weakness Psychiatric: Denies: Anxiety, Depression, Homicidal Ideations, Suicidal Ideations Hematologic/ Lymphatic: Denies: Easy Bruising, Easy Bleeding, Hx of blood clot VTE Information - Inpt Only VTE Present on Admission: No VTE Mechan Device Prophylaxis: SCD's VTE Pharm Prophylaxis ordered?: No Reason prophylaxis not ordered:: Medical Contraindication Patient Problems: Active and Suspected Problems (Last Updated 08/25/17 @ 07:57 by FLORENCIO Kennedy) GI bleed (Acute) - Physical Exam General: Alert, Cooperative, No apparent distress HEENT: Atraumatic, Normocephalic Oral: Moist Mucosa, No Gingival or Mucosal Lesions/ Ulcerations Neck: No Nodes, Thyroid Normal Size and Texture Lungs: Clear to auscultation, Normal air movement, No rhonchi, No wheeze Cardiovascular: Regular rate, Regular Rhythm, Normal S1, Normal S2, No murmurs Abdomen: Bowel Sounds Present, Soft, Non Tender, Non-Distended, No Hepato-splenomegaly Extremities: No clubbing, No cyanosis, No edema, No Calf Tenderness Skin: No rashes, No breakdown Musculoskeletal: No Tenderness to Palpation of Joints or Extremities, No Muscle Wasting Neurological: Neuro grossly intact, Sensory exam intact to light touch and pain, Coordination normal Psych/Mental Status: Normal Affect, Appropriate Vital Signs Temp Pulse Resp BP Pulse Ox 37.3 C 56 L 16 119/73 98 03/14/18 12:20 03/14/18 12:29 03/14/18 12:20 03/14/18 12:20 03/14/18 12:20 Oxygen Delivery Method Room Air Weight: 104.4 kg Body Mass Index (BMI) 32.1 Clinical Impression(s) from Imaging Studies Abdomen/Pelvis CT 03/14/18 08:22 IMPRESSION: Relatively focal thickening within the mid transverse colon. This can be further evaluated with endoscopy or contrast enema, as clinically indicated. Question mild wall thickening within the distal esophagus. This may represent esophagitis. Cholelithiasis. Additional findings, as detailed above. Electronically Signed: Cj Glover DO at 10:36 EDT Tel , Service support , Assessment/Plan All Active Problems (Last Updated 08/25/17 @ 07:57 by FLORENCIO Kennedy) GI bleed (Acute) Chest pain (Acute) NSTEMI (non-ST elevated myocardial infarction) (Acute) 1. GI bleed * I suspect it is probably related with diverticulosis or internal hemorrhoids as it is painless. * The area of focal thickening may be no inflammation is patient really does not not have any abdominal pain * This is also comp gated by the fact the patient is on dual antiplatelet therapy for coronary artery disease with a drug-eluting stent placed in April 2017 * Discussed with the patient and his that if patient's bleeding becomes refractory that we may need transfer to a tertiary facility for bleeding scan and possible coil embolization. 2. Coronary artery disease * Status post drug-eluting stent * Patient is not quite a year out so will need to continue with the doing the therapy for now * Follow-up with cardiology as outpatient 3. DVT prophylaxis with SCDs. Chemical prophylaxis contraindicated in light of the acute GI bleed. Code Visit Inpatient E AND M: [id number] Init Hosp L3 03/14/18 1433 <Electronically signed by Yonathan Pozo DO> Date Yonathan Pozo DO Cosigner Signature: Date (if applicable) CC: Yonathan Pozo DO; Shlomo Dudley DO Signed EMERGENCY DEPARTMENT Observed: 03/14/2018 Status: F Source: [place] SUMMARY 11:47 AM [facility] Medical Records Department [address] [place] [address] Emergency Department Summary 03/14/18 0829 MR#: [id number] Acct: [id number] Name: MYRNA JORGENSEN Jr. Rep #: [id number] : 1950 68 From: Madhuri Dallas MD PCP: Shlomo Dudley DO Status: ADM IN - ER Visit Summary Date of Service: 03/14/18 Chief Complaint: GI bleed History of Present Illness: The patient is a 68 M who presents with 2 episodes of bright red blood in his stool this morning. He denies any abdominal pain. He has a history of rectal surgery several years ago and states he has poor muscle tone. He has not had a colonoscopy in the past 5 years. He has a history of gastric ulcers but no history of lower GI bleeding. He does have previous history of SC and coronary artery disease. He has 2 cardiac stents. Plavix was held this morning. Physical Examination: Blood pressure is 191/105, otherwise vitals are normal. Patient sitting upright in bed no acute distress. Head neck examination is unremarkable. Heart is regular rate and rhythm. Lungs are clear with good air movement. Abdomen is soft and nontender. He has a small reducible periumbilical hernia. Rectal examination reveals no evidence of external hemorrhoids. There is a small amount of bright red blood on gloved finger. Test Results: CBC is remarkable only for platelet count of 125,000. Chemistry studies are normal. Coags normal. Stool guaiac is positive. CT abdomen pelvis with p.o. and IV contrast shows focal thickening within the mid transverse colon. Barium enema versus colonoscopy is recommended. Emergency Department Course and Treatment: Patient is given IV fluids here. Blood pressure is improved to 139/84. Patient had 1 episode with a bloody bowel movement while here in the emergency room. I spoke with Dr. Cueva, on-call for surgery. She will follow with the patient and plan for probable colonoscopy. I will speak with the hospitalist. Treatment Plan: [] Disposition: Admit Impression: GI bleed This note was generated with Driverdo dictation software. It may contain incorrect words, spelling, and punctuation that were not noted in review of the chart prior to signing ED Disposition - Plan for ED Patient: Chief Complaint: GI Bleed Referrals: Shlomo Dudley, [Primary Care Provider] - What to do if you have Problems For any increased pain, shortness of breath, bleeding, nausea or vomiting, chest pain, or any unexpected problems, contact your Primary Care Provider. Call [facility] ([phone]) or report to the closest Emergency Room. Call 911 if necessary. 03/14/18 1147 <Electronically signed by Madhuri Dallas MD> Date Madhuri Dallas MD Cosigner Signature (If Indicated): Date CC: Shlomo Dudley DO Observed: 03/14/2018 Status: F Source: [place] STOOL OCCULT BLOOD 8:53 AM [facility]OB REPOSITORY Order Date: 03/14/18 STOB iFOB Normal Reference Range = Negative Occult Blood Positive ORGANISM 1: OCCULT BLOOD POSITIVE Performed By: #### M100.7900 #### [facility] [address] [place], [address] PROTHROMBIN TIME W/INR Collected: 03/14/2018 Status: F Source: [place] 8:49 AM [facility] REPOSITORY TYPE CODE TESTS RESULT OUT OF RANGE REFERENCE UNITS LAB L300.4150 11.7-14.9 SECONDS Normal PROTIME 14.8 LAB L300.4200 Normal INR 1.2 Performed By: #### L300.3900, L300.4310 #### [facility] [address] [place], [address] PARTIAL THROMBOPLAST Collected: 03/14/2018 Status: F Source: [place] 8:49 AM [facility] REPOSITORY TYPE CODE TESTS RESULT OUT OF RANGE REFERENCE UNITS LAB L300.4310 24.1-36.2 Seconds Normal PTT 26.8 Performed By: #### L300.3900, L300.4310 #### [facility] [address] [place], [address] CBC W/DIFF, AUTOMATED Collected: 03/14/2018 Status: F Source: D[place] 8:49 AM [facility] REPOSITORY TYPE CODE TESTS RESULT OUT OF RANGE REFERENCE UNITS LAB L100.1000 4.4-11.0 K/mm3 Low WBC 3.2 LAB L100.1200 4.6-6.2 M/mm3 Low RBC 4.59 LAB L100.1300 13.0-16.5 g/dl Normal HGB 13.4 LAB L100.1400 40-54 % Normal HCT 40.9 LAB L100.1500 80-94 fL Normal MCV 89.1 LAB L100.1600 27.0-32.0 pg Normal MCH 29.2 LAB L100.1700 32-36 g/gl Normal MCHC 32.8 LAB L100.1810 11.6-14.6 % Normal RDW CV 12.6 LAB L100.1820 35.1-43.9 fl Normal RDW SD 40.2 LAB L100.1900 150-450 K/mm3 Low PLT 125 LAB L100.2000 6.2-12.0 fl Normal MPV 9.0 LAB L100.2100 47-70 % Normal NEUT% 67.1 LAB L100.2200 19-41 % Normal LY% 21.5 LAB L100.2300 0-10 % Normal MONO% 9.5 LAB L100.2400 0-5 % Normal EO% 1.6 LAB L100.2500 0-1 % Normal BASO% 0.3 LAB L100.2550 0.0-0.9 % Normal IM GRAN % 0.000 Result Comment: IG% - Immature Granulocytes (promyelocytes, myelocytes and metamyelocytes) > 1% indicates that a LEFT SHIFT is Present. LAB L100.2620 2.0-7.7 X10 3/uL Normal Absolute Neut 2.1 LAB L100.2720 0.83-4.51 X10 3/ul Low Absolute Lymph 0.68 Performed By: #### L100.0100 #### [facility] [address], [address] BASIC METABOLIC Collected: 03/14/2018 Status: F Source: [place] [facility] 8:49 AM [facility] REPOSITORY TYPE CODE TESTS RESULT OUT OF RANGE REFERENCE UNITS LAB L501.0100 74-106 mg/dL High GLU 148 Result Comment: Fasting Glucose result greater than or equal to 126 mg/dL suggests DIABETES MELLITUS per A.D.A. criteria. Please note revised GLUCOSE reference range effective 2017. LAB L501.1000 7-18 mg/dL Normal BUN 14 LAB L501.1100 0.70-1.30 mg/dL Normal CREAT,SERUM 1.18 Result Comment: The validity of the calculated GFR AND GFRAA in patients over 70 years has not been determined. Clinical correlation is essential. LAB L501.1110 >60 mL/min Normal EST GFR 65 Result Comment: Non- GFR Calc LAB L501.1115 >60 mL/min Normal EST GFR - AA 79 Result Comment: GFR Calc LAB L501.1255 ml/min Normal Estimated CRCL 64.70 LAB L501.1300 10-20 RATIO Normal BUN/CRE 11.9 LAB L501.2200 8.5-10 mg/dL Low .1 CA 8.4 LAB L501.5300 136-14 mmol/L Normal 5 NA 141 LAB L501.5600 3.5-5. mmol/L Normal 1 K 4.0 LAB L501.5900 98-107 mmol/L Normal CL 106 LAB L501.6100 21.0-3 mmol/L Normal 2.0 CO2 28.0 LAB L501.6200 5-15 Normal GAP 7 Performed By: #### L500.2500 #### [facility] [address] [facility] [place], [address] ABDOMEN/PELVIS WITH Observed: 03/14/2018 Status: F Source: [place] CONTRAST 8:24 AM [facility] REPOSITORY [facility] Imaging Services [address] [place] [address] Abdomen/Pelvis WITH Contrast MR#: [id number] Acct: [id number] Name: MYRNA JORGENSEN Jr. Rep #: [id number] : 1950 68 From: Cj Glover DO PCP: Shlomo Dudley DO Status: REG ER Study: Abdomen/Pelvis WITH Contrast Date of Exam: 03/14/18 Exam# [id number] Ordering Dr: Madhuri Dallas MD STUDY: CT ABDOMEN AND PELVIS WITH CONTRAST REASON FOR EXAM: Male, 68 years old. Bloody stool, abdominal pain RADIATION DOSAGE (If Supplied By Facility): CTDIvol = ( 20.25 ) mGy, DLP = ( 1294.02 ) mGycm TECHNIQUE: Transaxial images were obtained from the dome of the diaphragm to the symphysis pubis with oral contrast. 100 ml of Isovue 300 contrast was administered. Sagittal and coronal images were reconstructed. Individualized dose optimization techniques were used for this CT. COMPARISON: None. FINDINGS: The visualized lung bases are unremarkable. Coronary artery calcifications are present. Normal liver. There is a small calcified gallstone. Normal spleen. Normal pancreas. Normal bilateral adrenal glands. Normal right kidney. Normal left kidney. Normal visualized stomach. There may be mild thickening to the wall of the distal esophagus. Normal small intestine. There appears to be mild wall thickening within the mid transverse colon. The appendix is visualized and appears normal. Mild atherosclerotic calcification is seen within the abdominal aorta. Normal inferior vena cava. Normal retroperitoneum. The urinary bladder is nearly empty at the time of scanning. The prostate gland is slightly enlarged. There is a small umbilical hernia containing fat. Degenerative changes are present within the lower thoracic spine. CT/Abdomen/Pelvis WITH Contrast IMPRESSION: Relatively focal thickening within the mid transverse colon. This can be further evaluated with endoscopy or contrast enema, as clinically indicated. Question mild wall thickening within the distal esophagus. This may represent esophagitis. Cholelithiasis. Additional findings, as detailed above. Electronically Signed: Cj Glover DO at 10:36 EDT Tel , Service support , CC: Madhuri Dallas MD; Shlomo Dudley DO Managed Security Sales Consultant: Signed DOWNTIME REPORT Observed: 03/08/2018 Status: F Source: [place]HA 1:51 PM [facility] REPOSITORY [facility] Medical Records Department [address] [place] [address] Downtime Report MR#: [id number] Acct: [id number] Name: MYRNA JORGENSEN Jr. Rep #: [id number] : 1950 68 From: Koby Mora PCP: Shlomo Dudley DO Status: REG CLI This patient was seen during an EMR downtime February 19, 2018 - February 26, 2018. This patient may have a combination of paper and electronic documentation or all paper documentation. All documentation is viewable within the e-chart portion of [employer] for each patient visit. COMPREHENSIVE METABOLIC Collected: 02/26/2018 Status: F Source: D[place] PROFIL 6:44 AM [facility] REPOSITORY Order Comment: CMP.MIACRE FOR DR MOON LIVER LIPID FOR TYPE CODE TESTS RESULT OUT OF RANGE REFERENCE UNITS LAB L501.0100 74-106 mg/dL Normal GLU 92 Result Comment: Please note revised GLUCOSE reference range effective 2017. LAB L501.1000 7-18 mg/dL Normal BUN 15 LAB L501.1100 0.70-1.30 mg/dL Normal CREAT,SERUM 1.18 Result Comment: The validity of the calculated GFR AND GFRAA in patients over 70 years has not been determined. Clinical correlation is essential. LAB L501.1110 >60 mL/min Normal EST GFR 65 Result Comment: Non- GFR Calc LAB L501.1115 >60 mL/min Normal EST GFR - AA 79 Result Comment: GFR Calc LAB L501.1300 10-20 RATIO Normal BUN/CRE 12.7 LAB L501.1500 6.4-8.2 g/dL T Normal PROT 7.9 LAB L501.1800 3.2-5.0 g/dL Normal ALB 4.2 LAB L501.1950 2.2-4.2 g/dL Normal GLOB 3.7 LAB L501.2000 0.9-2.4 RATIO Normal A/G 1.1 LAB L501.2200 8.5-10.1 mg/dL CA Normal 9.0 LAB L501.4100 15-37 U/L Normal AST 17 LAB L501.4305 45-117 U/L Normal ALK P 68 LAB L501.4405 16-61 U/L Normal ALT 34 LAB L501.4600 0.20-1.00 mg/dL T Normal BILI 0.50 LAB L501.5300 136-145 mmol/L NA Normal 142 LAB L501.5600 3.5-5.1 mmol/L K Normal 3.8 LAB L501.5900 98-107 mmol/L CL Normal 105 LAB L501.6100 21.0-32.0 mmol/L Normal CO2 29.0 LAB L501.6200 5-15 Normal GAP 8 Performed By: #### L500.4050, L500.4100, L501.4700 #### [facility] [address] [place], [address] LIPID PROFILE Collected: 02/26/2018 Status: F Source: DAN[place]HA 6:44 AM [facility] REPOSITORY Order Comment: CK FOR DR MOON LIVER LIPID FOR TYPE CODE TESTS RESULT OUT OF RANGE REFERENCE UNITS LAB L501.4900 200 mg/dL Normal CHOL 103 Result Comment: <200 mg/dL Desirable 200-240 mg/dL Borderline >240 mg/dL High Risk LAB L501.5000 mg/dL Normal TRIG 112 Result Comment: The drugs N-Acetylcysteine and Metamizole may falsely depress this assay. Serum Triglycerides Reference Interval Normal <150 mg/dL Borderline high 150 - 199 mg/dL High 200 - 499 mg/dL Very High > or = 500 mg/dL LAB L501.6400 mg/dL Low HDL 37 Result Comment: The drugs N-Acetylcysteine and Metamizole may falsely depress this assay. Reference Range HDL <40 mg/dL Low HDL Cholesterol HDL >or= 60 mg/dL High HDL Cholesterol LAB L501.6500 0-130 mg/dL Normal LDL 44 LAB L501.6600 5-40 mg/dL Normal VLDL 22 Performed By: #### L500.4050, L500.4100, L501.4700 #### [facility] [address] [place], [place], [address] BILIRUBIN, DIRECT Collected: 02/26/2018 Status: F Source: D[place]HA 6:44 AM [facility] REPOSITORY Order Comment: CK FOR DR MOON LIVER LIPID FOR TYPE CODE TESTS RESULT OUT OF RANGE REFERENCE UNITS LAB L501.4700 0.00-0.30 mg/dL Normal D BILI 0.14 Performed By: #### L500.4050, L500.4100, L501.4700 #### [facility] [address] [place], [place], [address] MICROALB:CREAT Collected: 02/26/2018 Status: F Source: DANISHA RATIO,RANDOM UR 6:44 AM [facility] REPOSITORY Order Comment: CK FOR DR MOON LIVER LIPID FOR TYPE CODE TESTS RESULT OUT OF RANGE REFERENCE UNITS LAB L501.1200 NO RANGE EST. mg/dL Normal UR CREAT 16.20 LAB L502.0500 NO RANGE EST. mg/L Normal 26.7 MICROALBUMIN ,UR LAB L502.0600 <30 mg/g CRE mg/g CRE High 164.8 MALB:CREAT Performed By: #### L502.0250 #### [facility] [address] [place], [address] ALLERGIES ALLERGIES DATE TYPE / NAME / CODE REACTION SEVERITY SOURCE CODE 07/19/2018 DRUG OLANZAPINE OTHER: SEE C [address] [id number]( Repository OMED CT) 06/04/2018 DRUG OXALIPLATIN INTOLERANCE High [place] [address] [address] [place] 6291832( Repository OMED CT) 04/18/2018 Drug omeprazole/[id number] lowers WBCs Unknown [place] [address] 3476(RXNORM) [facility] 0122978( Hospital OMED CT) Repository 09/20/2005 DRUG OMEPRAZOLE [address] [id number]( Repository OMED CT) ENCOUNTERS ENCOUNTERS ADMIT/DISCHARGE ACCOUNT ADMITTING ENCOUNTER LOCATION SOURCE NUMBER CLASS 10/09/2018/10/10/[id number] Repository 10/08/2018 [id number] [facility] ing:LAB Repository 09/17/2018/09/17/[id number] ing:LAB Repository 08/28/2018/08/29/[id number] Repository 08/07/2018/08/08/[id number] Repository 08/06/2018/08/17/[id number] ing:LAB Repository 07/19/2018/07/20/20 [id number] Ambulatory [address] Repository 07/17/2018/07/18/[id number] Repository 07/16/2018/07/16/[id number] ing:LAB Repository 06/26/2018/06/27/20 [id number] Ambulatory [address] Repository 06/04/2018/06/05/20 [id number] Ambulatory [address] Repository 06/04/2018 [id number] Ambulatory BMSBuilding:Luke Raman MS.[facility] Repository 06/02/2018/06/05/20 [id number] Ambulatory [address] ing:LAB Repository 05/16/2018/05/17/20 [id number] Radha Rievra Ambulatory [address] ing:PCURoom: Repository [id number]: 1 05/16/2018 [id number] Radha Rivera Ambulatory BMSBuilding:Luke Raman MS.[facility] Repository 05/16/2018 [id number] Radha Rivera Ambulatory BMSBuilding:Luke Raman MS.[facility] Repository 05/16/2018/05/17/20 [id number] Ambulatory [address] Repository 05/15/2018/05/16/20 [id number] Ambulatory [address] Repository 05/14/2018 [id number] Ambulatory [facility] ing:LAB Repository 04/25/2018/04/26/20 [id number] Ambulatory [address] Repository 04/23/2018/04/24/20 [id number] Ambulatory [address] Repository 04/20/2018 [id number] [facility] ing:LABSPEC Repository 04/20/2018/04/20/20 [id number] Ambulatory [address] Repository 04/20/2018/04/23/20 [id number] Ambulatory [address] Repository 04/18/2018 [id number] Ambulatory [facility] ing:LAB.FUTUR Repository E 04/18/2018/04/18/20 [id number] Ambulatory BMSBuilding:Luke Raman 18 MS.[facility] Repository 04/17/2018/04/18/20 [id number] Ambulatory [address] Repository 04/16/2018 [id number] Ambulatory BMSBuilding:Luke Raman MS.[facility] Repository 03/30/2018/04/03/20 [id number] Ambulatory [address] Repository 03/27/2018/03/29/20 [id number] Ambulatory [address] Repository 03/20/2018/03/23/20 [id number] Hanna, Inpatient [place] 18 Chris Encounter [facility] ing:DC7Xjsy: Repository [id number]: 1 03/19/2018/03/22/20 [id number] Ambulatory [address] Repository 03/14/2018/03/17/20 [id number] Yonathan Pozo Inpatient [place] 18 Encounter [facility] ing:PCURoom: Repository [id number]: 1 03/14/2018 [id number] Roberth, Yonathan Ambulatory BMSBuilding:B Danisha MS.[facility] Repository 03/14/2018 [id number] Roberth, Yonathan Ambulatory BMSBuilding:[place] MS.[facility] Repository 03/14/2018 [id number] Roberth Yonathan Ambulatory BMSBuilding:B Danisha MS.CF.[facility] Repository 03/14/2018 [id number] Roberth, Yonathan Ambulatory BMSBuilding:B Danisha MS.[facility] Repository 03/14/2018 [id number] Roberth, Yonathan Ambulatory BMSBuilding:B Danisha MS.CF.[facility] Repository 03/14/2018 [id number] Roberth, Yonathan Ambulatory BMSBuilding:B [place] MS.[facility] Repository 02/26/2018 [id number] [facility] ing:LAB Repository PAYERS PAYERS ENCOUNTER GUARANTOR PAYER SUBSCRIBER SOURCE 10/08/2018 MYRNA JORGENSEN Primary MYRNA Raman Jr.2447 Insurance:CLAUDE Martha: [facility] [id number] Hospital [address] Carolyn Number: [place] [address]Yli: (634) [id number] [phone] () e Date:3374-57-54YZ [address], [place] [address]YN: 10/08/2018 Secondary NOT GIVENUNK [place] Insurance:SELF PAY [facility] Number: Effective Repository Date:2018-09-17 09/17/2018 MYRNA JORGENSEN Primary MYRNA Raman Jr.2447 Insurance:CLAUDE Jr.: [facility] [id number] Number: Repository [place] [address]Gcj: (330) [id number] [phone] () e Date:0753-58-93FY [address] [address]ZI: 09/17/2018 Secondary NOT GIVENUNK [place] Insurance:SELF PAY [facility] Number: Effective Repository Date:2018-08-20 08/06/2018 MYRNA JORGENSEN Primary MYRNA Raman Jr.2447 Insurance:CLAUDE Jr.: [facility] [id number] Number: Repository [place] [address]Edr: (330) [id number] [phone] () e Date:6886-13-62WW [address] [address]JH: 08/06/2018 Secondary NOT GIVENUNK [place] Insurance:SELF PAY [facility] Number: Effective Repository Date:2018-07-19 07/16/2018 MYRNA JORGENSEN Primary MYRNA Raman Jr.2447 Insurance:CLAUDE Jr.: [facility] [id number] Number: Repository [place] [address]Fhf: (330 [id number] [phone] () e Date:1408-91-25ZG [address] [address]YH: 07/16/2018 Secondary NOT GIVENUNK Danisha Insurance:SELF PAY [facility] Number: Effective Repository Date:2018-06-20 06/04/2018 MYRNA JORGENSEN Primary MYRNA Raman Jr.2447 Insurance:CLAUDE Jr.: [facility] [id number] Number: Repository [place] [address]Glb: ([phone] [id number] [phone] () e Date:1762-58-62HV [address] [address]PC: 06/04/2018 Secondary NOT GIVENUNK [place] Insurance:SELF PAY [facility] Hospital Number: Effective Repository Date:2017-08-28 06/02/2018 MYRNA JORGENSEN Primary MYRNA Raman Jr.2447 Insurance:CLAUDE Jr.: [facility] [id number] Number: Repository [place] [address]Ijk: (330) [id number] [phone] () e Date:4387-15-03SZ [address] [place] [address], [place] [address]GA: 06/02/2018 Secondary NOT GIVENUNK Danisha Insurance:SELF PAY [facility] Hospital Number: Effective Repository Date:2018-06-02 05/16/2018 MYRNA JORGENSEN Primary MYRNA Raman Jr.2447 Insurance:CLAUDE Jr.: [facility] [id number] Number: Repository [place] [address]Xdj: (330) [id number] [phone] () e Date:7849-82-81UJ [address] [place] [address], [place] [address]LC: 05/16/2018 Secondary NOT GIVENUNK Danisha Insurance:SELF PAY [facility] Hospital Number: Effective Repository Date:2018-05-16 05/16/2018 MYRNA JORGENSEN Primary MYRNA Raman Jr.2447 Insurance:CLAUDE Jr.: [facility] [id number] Number: Repository [place] [address]Nba: (330) [id number] [phone] (HP) e Date:1681-87-43OR [address], [place] [address]MA: 05/16/2018 Secondary NOT GIVENUNK [place] Insurance:SELF PAY [facility] Number: Effective Repository Date:2018-05-16 05/16/2018 MYRNA JORGENSEN Primary MYRNA Raman Jr.2447 Insurance:CLAUDE Jr.: [facility] [id number] Number: Repository [place] [address]Jrt: (330) [id number] [phone] (HP) e Date:4816-50-37IE [address], [place] [address]LT: 05/16/2018 Secondary NOT GIVENUNK Danisha Insurance:SELF PAY [facility] Number: Effective Repository Date:2018-05-16 05/14/2018 MYRNA JORGENSEN Primary MYRNA Raman Jr.2447 Insurance:CLAUDE Jr.: [facility] [id number] Number: Repository [place] [address]Flw: (330) [id number] [phone] (HP) e Date:4152-72-89VJ [address], [place] [address]GD: 05/14/2018 Secondary NOT GIVENUNK [place] Insurance:SELF PAY [facility] Number: Effective Repository Date:2018-05-14 04/20/2018 MYRNA JORGENSEN Primary MYRNA Raman Jr.2447 Insurance:CLAUDE Jr.: [facility] [id number] [facility] Number: Repository [address], [place] [id number]: (330) e Date:3054-16-11YB [phone] () [address], [place] [address]UU: 04/20/2018 Secondary NOT GIVENUNK [place] Insurance:SELF PAY [facility] Hospital Number: Effective Repository Date:2018-04-20 04/18/2018 MYRNA JORGENSEN Primary MYRNA Raman Jr.2447 Insurance:CLAUDE Jr.: [facility] [id number] Number: Repository [place] [address]Tqg: (330) [id number] [phone] (HP) e Date:3625-38-04ZQ [address] [address]UX: 04/18/2018 Secondary NOT GIVENUNK [place] Insurance:SELF PAY [facility] Number: Effective Repository Date:2018-04-04 04/18/2018 MYRNA JORGENSEN Primary MYRNA Raman Jr.2447 Insurance:CLAUDE Jr.: [facility] [id number] [facility] Number: Repository [address] [place] [address] [id number]: (330) e Date:8179-89-24JF [phone] () [address] [address]VS: 04/18/2018 Secondary NOT GIVENUNK [place] Insurance:SELF PAY [facility] Number: Effective Repository Date:2018-04-18 04/16/2018 MYRNA JORGENSEN Primary MYRNA Raman Jr.2447 Insurance:CLAUDE Jr.: [facility] [id number] Number: Repository [place] [address]Ngd: (330) [id number] [phone] (HP) e Date:2943-54-89FQ [address], [place] [address]HZ: 04/16/2018 Secondary NOT GIVENUNK [place] Insurance:SELF PAY [facility] Number: Effective Repository Date:2018-04-16 03/20/2018 MYRNA JORGENSEN Primary MYRNA Raman Jr.2447 Insurance:CLAUDE Jr.: [facility] [id number] Number: Repository [place] [address]Gvf: (330) [id number] [phone] () e Date:6728-78-53EZ [address], [place] [address]DZ: 03/20/2018 Secondary NOT GIVENUNK [place] Insurance:SELF PAY [facility] Hospital Number: Effective Repository Date:2018-03-19 03/14/2018 MYRNA JORGENSEN Primary MYRNA Raman JrMartha2447 Insurance:CLAUDE Jr.: [place] [id number] Number: Repository [place] [address]Bdk: (330) [id number] [phone] () e Date:7806-92-04SG [address], [place] [address]AS: 03/14/2018 Secondary NOT GIVENUNK Danisha Insurance:SELF PAY [facility] Hospital Number: Effective Repository Date:2018-03-14 03/14/2018 MYRNA JORGENSEN Primary MYRNA Raman Jr.2447 Insurance:CLAUDE Jr.: [facility] [id number] Number: Repository [place] [address]Xln: (330) [id number] [phone] () e Date:6991-58-64VG [address], [place] [address]XG: 03/14/2018 Secondary NOT GIVENUNK Danisha Insurance:SELF PAY [facility] Number: Effective Repository Date:2018-03-14 03/14/2018 MYRNA JORGENSEN Primary MYRNA Raman Jr.2447 Insurance:CLAUDE Jr.: [place] [id number] Number: [place]ository [place] [address]Cun: (330) [id number] [phone] () e Date:4403-99-62LK [address], [place] [address]PW: 03/14/2018 Secondary NOT GIVENUNK Danisha Insurance:SELF PAY [facility] Hospital Number: Effective Repository Date:2018-03-14 03/14/2018 MYRNA JORGENSEN Primary MYRNA Raman Jr.2447 Insurance:CLAUDE Jr.: [place] [id number] Number: Repository [place] [address]Qer: 330 [id number] [phone] () e Date:1107-05-61HQ [address] [address]BM: 03/14/2018 Secondary NOT GIVENUNK Danisha Insurance:SELF PAY [facility] Number: Effective Repository Date:2018-03-14 03/14/2018 MYRNA JORGENSEN Primary MYRNA Raman Jr.2447 Insurance:CLAUDE .: [facility] [id number] Number: [place]ository [place] [address]Epb: 330 [id number] [phone] () e Date:4922-84-41HW [address] [address]DR: 03/14/2018 Secondary NOT GIVENUNK Danisha Insurance:SELF PAY [facility] Hospital Number: Effective Repository Date:2018-03-14 03/14/2018 MYRNA JORGENSEN Primary MYRNA Raman Jr.2447 Insurance:CLAUDE Jr.: [facility] [id number] Number: [place]ository [place] [address]Whh: 330 [id number] [phone] () e Date:0818-32-18EX [address] [address]EV: 03/14/2018 Secondary NOT GIVENUNK Danisha Insurance:SELF PAY [facility] Number: Effective Repository Date:2018-03-14 03/14/2018 MYRNA JORGENSEN Primary MYRNA Raman Jr.2447 [facility] [id number] Number: [place]ository [place] [address]Ghe: 330 [id number] [phone] () e Date:9180-06-24CI [address], [place] [address]TW: 03/14/2018 Secondary NOT GIVENUNK [place] Insurance:SELF PAY [facility] Number: Effective Repository Date:2018-03-14 02/26/2018 MYRNA JORGENSEN Primary MYRNA Raman Jr.2447 Insurance:CLAUDE .: [facility] [id number] Number: Repository [place] [address]Ggn: 330 [id number] [phone] () e Date:4082-63-75AJ [address] [address]FN: 02/26/2018 Secondary NOT GIVENUNK Danisha Insurance:SELF PAY [facility] Number: Effective Repository Date:2018-02-26
== END 2018-10-08 08:21 | disposition home or self-care (01) ==
LOC: LAB 07:21
PROVIDERS: Family Provider Preventive Medicine Occupational Medicine; PCP Preventive Medicine Occupational Medicine; Referring Provider Internal Medicine Hematology & Oncology; Visit Provider Internal Medicine Hematology & Oncology
DX: C18.0 Malignant neoplasm of cecum (principal)
CPT/HCPCS: 36415; 80053; 85025

== ENCOUNTER → 2019-01-15 06:43 | Outpatient (CLI) | payer MEDICARE, SELFPAY ==
[2017-05-15 11:53] VITALS: BMI 35.6
[2018-12-27 10:59] VITALS: BMI 34.4
--- NOTE | 2019-01-15 10:17 | STRESSREP_ITS ---
Stress Test Report Date: 01-15-19 Procedure: Exercise tolerance test/imaging study Indications: Chest pain; CAD; status post PCI Consent: Per the patient Procedure: The patient exercised on a Valerio protocol for 6 minutes completing Stage II achieving a peak heart rate of 131 bpm (86 % predicted maximal heart rate) with a peak blood pressure 224/90 mmHg and a peak MET capacity of 7 METs. The baseline ECG demonstrated normal sinus rhythm. The peak exercise ECG demonstrated no obvious ECG changes. There was a rare PVC during recovery. The functional capacity was considered average. There was no complaint of chest discomfort during exercise or recovery. The examination was discontinued secondary to hypertension. Impression: 1. Technically adequate (percent predicted maximal heart rate greater than 85%) exercise tolerance test 2. Peak exercise ECG with no obvious ECG changes 3. There was a rare PVC during recovery 4. Nuclear images pending Myocardial perfusion imaging study: Technique: The patient was injected with 14.7 mCi of technetium 99m Cardiolite and subsequently rest SPECT Cardiolite nuclear imaging was obtained in the horizontal long, vertical long, and short axis views. The patient exercised on a Valerio protocol for 6 minutes completing Stage II achieving a peak heart rate of 131 bpm (86 % predicted maximal heart rate) with a peak blood pressure 224/90 mmHg and a peak MET capacity of 7 METs. The patient was injected with 44.7 mCi of technetium 99m Cardiolite and subsequently stress SPECT Cardiolite nuclear imaging was obtained in the horizontal long, vertical long, and short axis views. A gated Cardiolite study at peak stress was obtained. Interpretation: Rest and stress SPECT Cardiolite nuclear imaging status post realignment, normalization, and attenuation correction, demonstrates the appearance of relative uniform tracer uptake and myocardial perfusion at rest. Status post stress there is notation of an area of diminished tracer uptake in portions of the basal to mid lateral segments. There is diminished end systolic thickening and brightening in the aforementioned areas. The gated Cardiolite study demonstrates myocardial thickening and inward wall motion. The reported LVEF is 45 %. Impression: 1. Rest and stress SPECT Cardiolite nuclear imaging demonstrate myocardial perfusion changes concerning for an area of stress-induced myocardial ischemia and portions of the basal to mid lateral segments. 2. The gated Cardiolite study reports an LVEF of 45 %. This note was generated with [employer] software. It may contain incorrect words, spelling, and punctuation that were not noted in checking the note before signing.
== END ==
PROVIDERS: Family Provider Preventive Medicine Occupational Medicine; PCP Preventive Medicine Occupational Medicine; Referring Provider Internal Medicine Cardiovascular Disease; Visit Provider Internal Medicine Cardiovascular Disease
DX: R07.9 Chest pain, unspecified (principal); E78.2 Mixed hyperlipidemia
CPT/HCPCS: 78452; 93017; A9500; A4216

== ENCOUNTER → 2019-01-19 07:02 | Outpatient (CLI) | payer MEDICARE, SELFPAY ==
[2017-05-15 11:53] VITALS: BMI 35.6
[2018-12-27 10:59] VITALS: BMI 34.4
[2019-01-19 08:31] LABS: Hematocrit 45.6 % (40-54); Hemoglobin 15.7 g/dl (13.0-16.5); Mean Corp Hgb Conc 34.4 g/gl (32-36); Mean Corpuscular Hgb 31.1 pg (27.0-32.0); Mean Corpuscular Volume 90.3 fL (80-94); Mean Platelet Vol. 9.9 fl (6.2-12.0); Platelet Count 146 K/mm3 (150-450); RBC Distribution Width CV 12.1 % (11.6-14.6); RBC Distribution Width SD 39.3 fl (35.1-43.9); Red Blood Count 5.05 M/mm3 (4.6-6.2); White Blood Count 3.6 K/mm3 (4.4-11.0)
[2019-01-19 08:35] LABS: Scan Indicated on CBC? Y/N NO
[2019-01-19 08:40] LABS: International Normalized Ratio 1.1; Partial Thromboplast Time 26.7 Seconds (24.1-36.2); Prothrombin Time (Protime)PT. 13.8 SECONDS (11.7-14.9)
[2019-01-19 09:17] LABS: AST(SGOT) 19 U/L (15-37); Alanine Aminotransfer ALT/SGPT 32 U/L (16-61); Alkaline Phosphatase 77 U/L (45-117); Anion Gap 9 (5-15); BUN 9 mg/dL (7-18); Bilirubin, Direct 0.18 mg/dL (0.00-0.30); Calcium,Total 8.8 mg/dL (8.5-10.1); Chloride 108 mmol/L (98-107); Cholesterol 112 mg/dL (200); Creatinine, Serum 1.12 mg/dL (0.70-1.30); EST Glomerular Filtration Rate 69 mL/min (>60); Est Glom Filt Rate - Afr Amer 84 mL/min (>60); Globulin 3.2 g/dL (2.2-4.2); Glucose 105 mg/dL (74-106); High Density Lipoprotein 38 mg/dL; Potassium 3.6 mmol/L (3.5-5.1); Protein, Total 7.2 g/dL (6.4-8.2); Sodium Level 142 mmol/L (136-145); Triglycerides 199 mg/dL; Very Low Density Lipoprotein 40 mg/dL (5-40)
[2019-01-20 09:12] LABS: Carcinoembryonic Antigen 2.9 ng/mL (0.0-4.7)
== END ==
PROVIDERS: Internal Medicine Cardiovascular Disease; Nurse Practitioner; Family Provider Preventive Medicine Occupational Medicine; PCP Preventive Medicine Occupational Medicine; Referring Provider Radiology Diagnostic Radiology; Visit Provider Radiology Diagnostic Radiology
DX: C18.0 Malignant neoplasm of cecum (principal); C77.2 Secondary and unspecified malignant neoplasm of intra-abdominal lymph nodes; E78.2 Mixed hyperlipidemia; R07.9 Chest pain, unspecified; I25.10 Atherosclerotic heart disease of native coronary artery without angina pectoris; R94.39 Abnormal result of other cardiovascular function study; Z95.5 Presence of coronary angioplasty implant and graft
CPT/HCPCS: 36415; 80048; 80061; 80076; 82378; 85027; 85610; 85730

== ENCOUNTER 2019-01-23 06:59 | Day surgery (SDC) | payer MEDICARE, SELFPAY ==
[2017-05-15 11:53] VITALS: BMI 35.6
[2018-12-27 10:59] VITALS: BMI 34.4
--- NOTE | 2019-01-17 13:56 | RAD_ITS ---
HISTORY: chest pain, pre heart cath EXAM: XR Chest 2 Views COMPARISON: 06/05/17 CXR FINDINGS: LINES/DEVICES: None. LUNGS: Radiographically clear. No consolidation, edema or effusion. No pneumothorax. Hyperinflated somewhat lucent lungs. MEDIASTINUM AND CARDIOVASCULAR STRUCTURES: Cardiac silhouette not enlarged. Central airways and mediastinal contour are unremarkable. BONES AND SOFT TISSUES: Unremarkable. RAD/Chest PA and Lateral IMPRESSION: Suspect mild COPD. No radiographic evidence of acute cardiopulmonary disease. at 2029 Reported and signed by: Farhan Mcduffie MD Electronically Signed: Farhan Mcduffie, at 20:27 EDT Tel , Service support ,
[2019-01-22 07:34] VITALS: BMI 34.4
[2019-01-23] VITALS (23 sets, daily range): BP systolic 127–187; BP diastolic 57–98; PULSE 43–68; RESP 9–19; TEMP 36.6–36.8; O2SAT 97–100; BMI 34.4; BMI 34.3
[2019-01-23 09:56] LABS: ACT Activated Clotting Time 202 sec (74-137)
--- NOTE | 2019-01-23 10:16 | CL.I_ITS ---
Patient Name: MYRNA CAPPS Study Date: 01/23/2019 Performing: Biju Combs MD Ht: 70.08 inches 178 cm : 1950 Wt: 240.3 lbs 109 kg Age: 69 Gender: male BSA: 2.26 PROCEDURE(S) PERFORMED [id number] W OR WO PTCA, SINGLE CORONARY ARTERY [id number] W OR WO PTCA, EACH ADD'L ARTERY, SAME MAJOR [id number], CORONARY OR GRAFT, INITIAL VESSEL CLINICAL PROFILE AND CO-MORBIDITIES Indications: Worsening Angina, Suspected CAD, New Onset Angina <= 2 months, Worsening Angina, Sta ble Known CAD Heart Failure: None Stress/Imaging Stress Test w/SPECT MPI: Yes Result: Positive Stress Test with SPECT MPI: Positive Angina Classification Anginal Classification w/in 2 Weeks: CCS III CAD Presentations: Stable angina. Unstable angina. Comorbidities/Risk Factors: Hypertension Dyslipidemia Prior PCI CONCLUSIONS Successful PTCA/JAYLIN proximal DIAG#1 with a 2.25 x 20 Promus Synergy; 85%-->0%, no dissection or encro achment into LAD. Successful PTCA/JAYLIN mid LAD with a 4.0 x 28 Promus Synergy, post dilated throughout with a 4.0 x 12 N C Balloon; 75%-->0%, no dissection. FFR eval of LAD was 0.78 pre stent; 0.93 post stent. RECOMMENDATIONS Highly recommend quitting all tobacco products Follow up with primary preschool program director Risk factor modification ASA Indefinitley Plavix for at least 12 months Routine post interventional care Refer for Outpatient Cardiac Rehab Manual sheath removal per protocol Follow up with Dr. Grigsby Elective PCI of LCX/OM in 3 weeks. Successful Mynx closure of RFA. DESCRIPTION OF PROCEDURE The patient arrived to the procedure lab. The risks and benefits of the procedure as well as a full d escription of our services here and current unavailability of surgical backup were fully explained to the patient and/or their significant other prior to the catheterization. The Timeout was completed, verifying the correct patient and procedure. The patient's procedural site was prepped and draped in the usual fashion. Local anesthetic was given subcutaneously to right groin region with Lidocaine 2% Using a modified Seldinger technique,arterial access was obtained via the right femoral artery, a 4Fr sheath was inserted Left Coronary Artery selective angiography was performed in multiple views using a 4 Fr. JL5 catheter. Right Coronary Artery selective angiography was then performed in multiple vie ws using a 4 Fr. 3DRC catheter. Left Ventriculography was performed in BURRELL projection using a 4 Fr. P igtail catheter. LV to AO pullback pressures were then recorded.The images were reviewed and options discussed. A decision was then made to proceed with an Intervention, IVUS or other adjunc t procedure. Arterial sheath was exchanged for a 6 Fr Sheath. ebu 3.75 Guide catheter was inserted and engaged into the LCA. The FFR/iFR wire was inserted. Adenosine was then given per protocol. Pressures and FF R/iFR were then recorded. FFR Ratio post Adenosine: 0.76 bmw Guide wire was advanced to the 1st Diago nal. emerge 2.00 x 12 Balloon catheter was advanced across lesion in the first diagonal, proximal. PT CA balloon inflated at 6 atms for 11 secs. PTCA balloon inflated at 8 atms for 11 secs. PTCA balloon inflated at 8 atms for 10 secs. Angiogram performed post balloon dilatation. synergy 2.25 x 20 Drug E luting stent was advanced across the lesion in the first diagonal, proximal. synergy 4.0 x 28 Drug El uting stent was advanced across the lesion in the LAD, mid. Angiogram performed pre stent deployment. Angiogram performed pre balloon dilatation. nc emerge 4.0 x 12 Balloon catheter was inserted post st ent. Angiogram performed post balloon dilatation. emerge 2.00 x 12 Balloon catheter was inserted post stent to diag 1 Contrast was injected through the sheath and the Right Iliac and Femora l artery were assessed for possible closure device. The arterial sheath was pulled and a Mynx closur e device was deployed for hemostasis INTERVENTION INFORMATION LESION SITE: 1st Diagonal (Proximal) Lesion Complexity: High, lesion at bifurcation: No, thrombus present: No, lesion length: 20 mm, culpr it lesion: Yes Pre Stenosis: 85 % Pre intervention SANAM flow: 3 PROCEDURE: Drug Eluting Stent with pre dilatation. Post Stenosis: 0 % Post intervention SANAM flow: 3 Lesion Devices: Apperian Synergy MR JAYLIN 2.25x20 Bernard Sci EMERGE MR 2.00x12 BALLOON LESION SITE: LAD (Mid) Lesion Complexity: High/C, lesion at bifurcation: No, thrombus present: No, lesion length: 28 mm, cul prit lesion: No Pre Stenosis: 75 % Pre intervention SANAM flow: 3 PROCEDURE: FFR Drug Eluting Stent with pre and post dilatation Post Stenosis: 0 % Post intervention SANAM flow: 3 Lesion Devices: Bernard Sci Synergy MR JAYLIN 4.00x28 Bernard Sci NC EMERGE MR 4.00x12 BALLOON COMPLICATIONS No Complications PROCEDURE MEDICATIONS Versed 1 mg IV Oxygen: 2 L/min via nasal cannula Adenosine drip for FFR 900 ml/hr 30 cc's infused @ 01/23/2019 09:13:19 Heparin 6000 unit(s) IV 01/23/2019 09:01:52 Nitro 200 mcg IC 01/23/2019 09:03:53 Nitro 200 mcg IC 01/23/2019 09:03:53 SUMMARY OF HEMODYNAMIC DATA Time AIR REST ECG 08:02:48 AO 137/87 (112) SA 08:09:36 LV 160/0, 22 08:17:43 LV 154/0, 20 08:17:50 LV 156/-3, 19 08:18:40 LV 156/-5, 20 08:18:47 LVp 154/-4, 20 08:18:53 AOp 81/-19 (13) 08:18:58 AO 171/83 (113) 09:45:54 Signed By Biju Combs MD On 01/23/2019 10:16:25 Biju Combs MD
--- NOTE | 2019-01-23 10:27 | EKG12_ITS ---
Test Reason : AM EKG Blood Pressure : / mmHG Vent. Rate : 053 BPM Atrial Rate : 053 BPM P-R Int : 176 ms QRS Dur : 104 ms QT Int : 438 ms P-R-T Axes : 049 030 011 degrees QTc Int : 410 ms Sinus bradycardia with Premature ventricular complexes or Fusion complexes Otherwise normal ECG When compared with ECG of 23-JAN-2019 10:24, MANUAL COMPARISON REQUIRED, DATA IS UNCONFIRMED Confirmed by KORY GERARD ([id number]), editor newspaper OMKAR MARTIN ([id number]) on 01/28/2019 2:29:36 PM Referred By: Esteban Grigsby Confirmed By:KVNG GERARD
--- NOTE | 2019-01-23 10:43 | CL.D_ITS ---
Patient Name: MYRNA CAPPS Study Date: 01/23/2019 Performing: Esteban Grigsby MD Ht: 70 inches 178 cm : 1950 Wt: 240.6 lbs 109 kg Age: 69 Gender: male BSA: 2.26 PROCEDURE(S) PERFORMED MC65-TZA/COR/LV [id number] W OR WO PTCA, SINGLE CORONARY ARTERY [id number] W OR WO PTCA, EACH ADD'L ARTERY, SAME MAJOR [id number], CORONARY OR GRAFT, INITIAL VESSEL CLINICAL PROFILE AND INDICATIONS Indications: Worsening Angina, Suspected CAD, New Onset Angina <= 2 months, Worsening Angina, Sta ble Known CAD Heart Failure: None Stress/Imaging Stress Test w/SPECT MPI: Yes Result: PositiveStress Test with SPECT MPI: Positive Angina Classification Anginal Classification w/in 2 Weeks: CCS III CAD Presentations: Stable angina. Unstable angina. Comorbidities/Risk Factors: Hypertension Dyslipidemia Prior PCI CONCLUSIONS Elevated Left Ventricular End Diastolic Pressure Normal LV size, wall motion,and systolic function LVEF: by LV gram 65 % [place] Multivessel CAD RECOMMENDATIONS Risk factor modification Medical therapy Referred for immediate PCI DESCRIPTION OF PROCEDURE The patient arrived to the procedure lab. The risks and benefits of the procedure as well as a full d escription of our services here and current unavailability of surgical backup were fully explained to the patient and/or their significant other prior to the catheterization. The Timeout was completed, verifying the correct patient and procedure. The patient's procedural site was prepped and draped in the usual fashion. Local anesthetic was given subcutaneously to right groin region with Lidocaine 2%. Using a modified Seldinger technique, arterial access was obtained via the right femoral artery, a 4 Fr sheath was inserted Left Coronary Artery selective angiography was performed in multiple views us ing a 4 Fr. JL5 catheter. Right Coronary Artery selective angiography was then performed in multiple views using a 4 Fr. 3DRC catheter. Left Ventriculography was performed in BURRELL projection using a 4 Fr . Pigtail catheter. LV to AO pullback pressures were then recorded.Contrast was injected through the sheath and the Right Iliac and Femoral artery were assessed for possible closure device.T he arterial sheath was pulled and a Mynx closure device was deployed for hemostasis CORONARY ANGIOGRAPHY DOMINANCE: Right Dominant LEFT HEART ASSESSMENT Left Ventricular Ejection Fraction: by LV Gram 65 % Normal LV wall motion Elevated Left Ventricular End Diastolic Pressure LVEDP: 20 mmHg LEFT MAIN: Angiographically normal LEFT ANTERIOR DESCENDING ARTERY: PROX LAD: Eccentric: 25 % Stenosis MID LAD: Eccentric: 50 % Stenosis DIAGONAL 2: Proximal - Long: Diffuse: 85 % Stenosis DIAGONAL 3: Proximal - is occluded CIRCUMFLEX ARTERY: MID CIRC: 10-25 % Stenosis OM 2: Proximal - 75 % Stenosis RIGHT CORONARY ARTERY: Mild luminal irregularities PROX RCA: Previously placed stent is patent COLLATERAL FLOW: Collateral flow from Left to Right Collateral flow from Right to Left VALVE FINDINGS: Normal Aortic Valve function Normal Mitral Valve function AORTIC ROOT: Angiographically normal COMPLICATIONS No Complications PROCEDURE MEDICATIONS Versed 1 mg IV Oxygen: 2 L/min via nasal cannula Adenosine drip for FFR 900 ml/hr 30 cc's infused @ 01/23/2019 09:13:19 Heparin 6000 unit(s) IV 01/23/2019 09:01:52 Nitro 200 mcg IC 01/23/2019 09:03:53 Nitro 200 mcg IC 01/23/2019 09:03:53 SUMMARY OF HEMODYNAMIC DATA Time AIR REST ECG 08:02:48 AO 137/87 (112) SA 08:09:36 LV 160/0, 22 08:17:43 LV 154/0, 20 08:17:50 LV 156/-3, 19 08:18:40 LV 156/-5, 20 08:18:47 LVp 154/-4, 20 08:18:53 AOp 81/-19 (13) 08:18:58 AO 171/83 (113) 09:45:54 Signed By Esteban Grigsby MD On 01/23/2019 10:42:08 Esteban Grigsby MD
[2019-01-23] MEDS: 0.9% Normal Saline 1,000 ML 150 ML IV (11:16)
[2019-01-23] MEDS: Psyllium 1 PACKET PO (13:58)
[2019-01-23] MEDS: Pantoprazole Sodium 20 MG Tablet PO ×2 (13:58→21:18)
--- NOTE | 2019-01-23 14:10 | CRPHASE1 ---
Patient Communication PHII Cardiac Rehab Discussed with Patient:: Yes Guide to Cardiac Rehab Given to Patient:: Yes Cardiac Rehab Facility Choice List Given to Patient:: Yes - [facility] Choice Program [facility] CR PHII:: Communication Given to CR, Refer to [facility] Pharmacy Operations Coordinator:: Biju Combs Phase II Cardiac Rehab:: Yes - HE IS GOING TO HAVE A THIRD STENT IN 2-3WKS. Sessions:: 36 sessions - 3 days/wk, 12 weeks Risk Factors/Lifestyle Smoking Status: Former smoker Hx Obesity: Yes Height: 1.78 m Weight:: 108.9 kg BMI: 34.3 Stress: Recent ETOH: No Caffeine: Yes Substance Abuse: No Risk Factor for Sedentary Lifestyle: Lowest Risk Family History: Family History (Last Reviewed 12/27/18 @ 11:02 by Ramya Fatima) Father CAD (coronary artery disease) Mother CAD (coronary artery disease) Phase I Education Given On:: [place] Issues Affecting Care:: None Knowledge of Condition:: Yes Hospital Course Pain Description: Burning, Tightness Cardiac Cath Date:: 01/23/19 Medical/Surgical History Angina:: Yes 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 Cardiac rehabilitation programs are recognized as integral to the continued care of the patient with coronary heart disease. The cardiac rehabilitation program is designed to optimize a patient's physical, psychological, and social functioning. Health body care manager work in cardiac rehabilitation programs and assist you with getting the treatments you need to get stronger and healthier - like exercise, healthy eating habits, and medications. Cardiac rehabilitation has been show to help people with heart problems live longer and have better life enjoyment than people who do not go to cardiac rehabilitation. Please contact the Cardiac Rehabilitation Program at [facility] at in two weeks if you have not heard from them.
--- NOTE | 2019-01-23 14:14 | CRPHASE1_ITS ---
Patient Communication PHII Cardiac Rehab Discussed with Patient:: Yes Guide to Cardiac Rehab Given to Patient:: Yes Cardiac Rehab Facility Choice List Given to Patient:: Yes - [facility] Choice Program [facility] CR PHII:: Communication Given to CR, Refer to [facility] Financial Project Manager:: Biju Combs Phase II Cardiac Rehab:: Yes - HE IS GOING TO HAVE A THIRD STENT IN 2- 3WKS. Sessions:: 36 sessions - 3 days/wk, 12 weeks Risk Factors/Lifestyle Smoking Status: Former smoker Hx Obesity: Yes Height: 1.78 m Weight:: 108.9 kg BMI: 34.3 Stress: Recent ETOH: No Caffeine: Yes Substance Abuse: No Risk Factor for Sedentary Lifestyle: Lowest Risk Family History: Family History (Last Reviewed 12/27/18 @ 11:02 by Ramya Fatima) Father CAD (coronary artery disease) Mother CAD (coronary artery disease) Phase I Education Given On:: [place] Issues Affecting Care:: None Knowledge of Condition:: Yes Hospital Course Pain Description: Burning, Tightness Cardiac Cath Date:: 01/23/19 Medical/Surgical History Angina:: Yes 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 Cardiac rehabilitation programs are recognized as integral to the continued care of the patient with coronary heart disease. The cardiac rehabilitation program is designed to optimize a patient's physical, psychological, and social functioning. Health resident care supervisor work in cardiac rehabilitation programs and assist you with getting the treatments you need to get stronger and healthier - like exercise, healthy eating habits, and medications. Cardiac rehabilitation has been show to help people with heart problems live longer and have better life enjoyment than people who do not go to cardiac rehabilitation. Please contact the Cardiac Rehabilitation Program at [facility] at in two weeks if you have not heard from them.
--- NOTE | 2019-01-23 14:14 | CRPH1.INSTRU ---
General Education CAD and cardiac anatomy and function:: Patient communicates acknowledgment Explanation of diagnoses and procedures:: Patient communicates acknowledgment Sign/Symptoms of ID:: Patient communicates acknowledgment Antiplatelet therapy: Needs reinforcement Proper use of NTG-SL: Needs reinforcement Emergency procedures and activation of EMS: Patient communicates acknowledgment Compliance of all prescribed medications: Needs reinforcement Smoking Patient Nicotine/Smoking Risk Factors Are:: Non-smoker Dyslipidemia Recommendations Include:: Lipid profile not available Overweight/Obesity Patient Overweight/Obesity Risk Factors Are:: Overweight = 26-29 Overweight/Obesity:: Patient communicates acknowledgment Hypertension Hypertension:: Patient communicates acknowledgment Heart Disease Patient Heart Disease Risk Factors Are:: Family history of heart disease < 65 years old, Previous cardiac event Diabetes Patient Diabetes Risk Factors Are:: No documented hx of diabetes Metabolic Syndrome Recommendations Include:: Does not meet criteria Metabolic Syndrome Response Code:: Patient communicates acknowledgment Sedentary Sedentary Response Code:: Patient communicates acknowledgment Stress Stress Response Code:: Patient communicates acknowledgment
[2019-01-23] MEDS: Tamsulosin HCl 0.4 MG Capsule PO (21:18)
[2019-01-23] MEDS: Metoprolol Tartrate 25 MG Tablet PO (21:18)
[2019-01-23] MEDS: Atorvastatin Calcium 80 MG Tablet PO (21:18)
[2019-01-23] MEDS: Fluticasone 0.05% 1 SPRAY NASAL.SRY 2 SPRAY NASAL (21:20)
[2019-01-24] VITALS (32 sets, daily range): BP systolic 110–184; BP diastolic 56–97; PULSE 41–79; RESP 10–25; TEMP 36.6–37; O2SAT 94–99
--- NOTE | 2019-01-24 06:46 | PCM.DC.CCA ---
Discharge Diet: Low fat/ Low Cholesterol May shower in (days): 1 - No tub baths for 5 days May resume sexual activity in: 1-2 weeks Lifting Restrictions: Do not lift anything greater than 10 pounds for 3 days Call your doctor if your incision/area has: Continuous Slow Oozing, Sudden Increased Bleeding, Increased Pain/ Swelling, Increased Redness, Foul Smelling Discharge, Swelling at the incision site Call your doctor if you observe: Fever of 101 or Higher, Shortness of breath, Chest pain Remove Dressing in (days):: 1 Cleanse incision/area with: Soap & Water Additional Instructions: You will continue with aspirin therapy. He will remain on Plavix therapy for at least one year. If anyone asks you to stop your Plavix please call the [facility] Office first at [phone]. You are scheduled for an office appointment on 02/15/2019 at 11:30 AM with Fady Comer Nurse Practitioner. Allergies/Adverse Reactions: Allergies olanzapine [From Zyprexa] Adverse Reaction (Severe, Verified 12/27/18 10:59) tremors, muscle twitching oxaliplatin Adverse Reaction (Severe, Verified 12/27/18 10:59) neuropathy omeprazole [From Prilosec] Adverse Reaction (Verified 12/27/18 10:59) lowers WBCs Medications to take at Discharge Psyllium [Metamucil] 1 packet PO DAILY 05/13/17 Rabeprazole Sodium [Aciphex] 20 mg PO BID 05/13/17 Tamsulosin HCl [Flomax] 0.4 mg PO QHS 05/13/17 Glucosamine/MSM/Chondroitin A [Glucosamine Chondroit MSM Tab] 1 ea PO DAILY 03/14/18 Aspirin E.C. [Ecotrin] 81 mg PO DAILY@0800 03/19/18 triamcinolone acetonide 55 mcg nasal spray aerosol 2 spray INTRANASAL QHS 04/18/18 atorvastatin 80 mg tablet 80 mg PO QHS #90 tab 06/05/18 isosorbide mononitrate ER 30 mg tablet,extended release 24 hr 30 mg PO DAILY #90 tab 06/05/18 lisinopril 20 mg tablet 20 mg PO DAILY #90 tab 06/05/18 metoprolol tartrate 25 mg tablet 25 mg PO BID #180 tab 06/05/18 clopidogrel 75 mg tablet 75 mg PO DAILY #30 tab 01/15/19 Polyethylene Glycol 3350 [Miralax] 17 gm PO DAILY 01/23/19 Orders to be completed after discharge: Phase II, Outpatient Cardiac Rehab Location: None Selected Primary Care Physician: Xavire El DO [Primary Care Provider] - Test Results: Test results from this visit will be discussed in further detail at your follow-up appointment, if applicable. Please Follow Up With: Fady Comer - Nurse Practitioner When: 02/15/2019 at 11:30 AM Cardiac Rehabilitation Info Cardiac Rehabilitation Program Information: Cardiac Rehabilitation is important for patients like you who are recovering from a heart problem. Cardiac rehabilitation programs are recognized as integral to the continued care of the patient with coronary heart disease. The cardiac rehabilitation program is designed to optimize a patient's physical, psychological, and social functioning. Health wild animal caretaker work in cardiac rehabilitation programs and assist you with getting the treatments you need to get stronger and healthier - like exercise, healthy eating habits, and medications. Cardiac rehabilitation has been show to help people with heart problems live longer and have better life enjoyment than people who do not go to cardiac rehabilitation. Please contact the Cardiac Rehabilitation Program at [facility] at in two weeks if you have not heard from them.
--- NOTE | 2019-01-24 06:49 | DCINST_ITS ---
Discharge Diet: Low fat/ Low Cholesterol May shower in (days): 1 - No tub baths for 5 days May resume sexual activity in: 1-2 weeks Lifting Restrictions: Do not lift anything greater than 10 pounds for 3 days Call your doctor if your incision/area has: Continuous Slow Oozing, Sudden Increased Bleeding, Increased Pain/ Swelling, Increased Redness, Foul Smelling Discharge, Swelling at the incision site Call your doctor if you observe: Fever of 101 or Higher, Shortness of breath, Chest pain Remove Dressing in (days):: 1 Cleanse incision/area with: Soap & Water Additional Instructions: You will continue with aspirin therapy. He will remain on Plavix therapy for at least one year. If anyone asks you to stop your Plavix please call the [facility] Office first at [phone]. You are scheduled for an office appointment on 02/15/2019 at 11:30 AM with Fady Comer Nurse Practitioner. Allergies/Adverse Reactions: Allergies olanzapine [From Zyprexa] Adverse Reaction (Severe, Verified 12/27/18 10:59) tremors, muscle twitching oxaliplatin Adverse Reaction (Severe, Verified 12/27/18 10:59) neuropathy omeprazole [From Prilosec] Adverse Reaction (Verified 12/27/18 10:59) lowers WBCs Medications to take at Discharge Psyllium [Metamucil] 1 packet PO DAILY 05/13/17 Rabeprazole Sodium [Aciphex] 20 mg PO BID 05/13/17 Tamsulosin HCl [Flomax] 0.4 mg PO QHS 05/13/17 Glucosamine/MSM/Chondroitin A [Glucosamine Chondroit MSM Tab] 1 ea PO DAILY 03/14/18 Aspirin E.C. [Ecotrin] 81 mg PO DAILY@0800 03/19/18 triamcinolone acetonide 55 mcg nasal spray aerosol 2 spray INTRANASAL QHS 04/18/18 atorvastatin 80 mg tablet 80 mg PO QHS #90 tab 06/05/18 isosorbide mononitrate ER 30 mg tablet,extended release 24 hr 30 mg PO DAILY #90 tab 06/05/18 lisinopril 20 mg tablet 20 mg PO DAILY #90 tab 06/05/18 metoprolol tartrate 25 mg tablet 25 mg PO BID #180 tab 06/05/18 clopidogrel 75 mg tablet 75 mg PO DAILY #30 tab 01/15/19 Polyethylene Glycol 3350 [Miralax] 17 gm PO DAILY 01/23/19 Orders to be completed after discharge: Phase II, Outpatient Cardiac Rehab Location: None Selected Primary Care Physician: Xavier El DO [Primary Care Provider] - Test Results: Test results from this visit will be discussed in further detail at your follow- up appointment, if applicable. Please Follow Up With: Fady Comer - Nurse Practitioner When: 02/15/2019 at 11:30 AM Cardiac Rehabilitation Info Cardiac Rehabilitation Program Information: Cardiac Rehabilitation is important for patients like you who are recovering from a heart problem. Cardiac rehabilitation programs are recognized as integral to the continued care of the patient with coronary heart disease. The cardiac rehabilitation program is designed to optimize a patient's physical, psychological, and social functioning. Health career development consultant work in cardiac rehabilitation programs and assist you with getting the treatments you need to get stronger and healthier - like exercise, healthy eating habits, and medications. Cardiac rehabilitation has been show to help people with heart problems live longer and have better life enjoyment than people who do not go to cardiac rehabilitation. Please contact the Cardiac Rehabilitation Program at [facility] at in two weeks if you have not heard from them.
--- NOTE | 2019-01-24 07:10 | ED.RN ---
PT C/O PULSATING AND BURNING SENSATION AT GROIN SITE AFTER RETURNING TO BED FROM BATHROOM. NOTIFIED HILLARY RN WHO ASSISTED THIS RN IN FURTHER ASSESSING THE SITE. AREA TO THE LEFT OF SITE WAS MORE FIRM. HILLARY APPLIED PRESSURE FOR 5 MIN AND THE AREA SOFTENED. WILL CONTINUE TO MONITOR.
[2019-01-24] MEDS: Isosorbide Mononitrate 30 MG Tablet PO (07:37)
[2019-01-24] MEDS: Metoprolol Tartrate 25 MG Tablet PO ×2 (07:37→21:41)
[2019-01-24] MEDS: Clopidogrel Bisulfate 75 MG Tablet PO (07:38)
[2019-01-24] MEDS: Lisinopril 20 MG Tablet PO (07:38)
[2019-01-24] MEDS: Pantoprazole Sodium 20 MG Tablet PO ×2 (07:38→21:41)
[2019-01-24] MEDS: Aspirin E.C. 81 MG Tablet PO (07:38)
[2019-01-24] MEDS: Psyllium 1 PACKET PO (07:39)
--- NOTE | 2019-01-24 08:25 | ADUL_ITS ---
Reason For Study: S/P cardiac cath Right Velocities CFV is compressible with normal venous flow patterns. COUNTER MANAGER PSV 111.2 cm/sec. Pseudoaneurysm noted measuring 2.12 x 2.0 cm. Neck measuring 0.32 cm. Possibly multilobular. Procedure Exam performed portable in ICU/CCU. Comments Prelim given to heart group and patients RN. Interpretation Summary Bilobed pseudoaneurysm right groin 2.12 x 1.03cm Normal flow right common femoral artery and vein. Ordering Physician: Esteban Grigsby Referring Physician: MD Xavier El Performed By: Jessica Vargas RVT
[2019-01-24 08:54] LABS: Hematocrit 45.9 % (40-54); Mean Corp Hgb Conc 34.9 g/gl (32-36); Mean Corpuscular Hgb 31.7 pg (27.0-32.0); Mean Corpuscular Volume 91.1 fL (80-94); Mean Platelet Vol. 9.2 fl (6.2-12.0); Platelet Count 141 K/mm3 (150-450); RBC Distribution Width CV 12.5 % (11.6-14.6); RBC Distribution Width SD 41.7 fl (35.1-43.9); Red Blood Count 5.04 M/mm3 (4.6-6.2); Scan Indicated on CBC? Y/N NO; White Blood Count 6.4 K/mm3 (4.4-11.0)
[2019-01-24 09:07] LABS: Anion Gap 9 (5-15); BUN 8 mg/dL (7-18); BUN/Creat Ratio 7.9 RATIO (10-20); Calcium,Total 8.5 mg/dL (8.5-10.1); Chloride 107 mmol/L (98-107); Cholesterol 127 mg/dL (200); Creatinine, Serum 1.01 mg/dL (0.70-1.30); EST Glomerular Filtration Rate 78 mL/min (>60); Est Glom Filt Rate - Afr Amer 95 mL/min (>60); Estimated Creatinine Clearance 72.28 ml/min; Glucose 112 mg/dL (74-106); High Density Lipoprotein 35 mg/dL; Potassium 3.6 mmol/L (3.5-5.1); Sodium Level 140 mmol/L (136-145); Triglycerides 197 mg/dL; Very Low Density Lipoprotein 39 mg/dL (5-40)
--- NOTE | 2019-01-24 09:29 | PN.CARD_ITS ---
Subjectve: The patient is status post diagnostic cardiac catheterization and LAD/diagonal branch PCI/JAYLIN. He denies any ongoing chest discomfort or difficulty breathing. He does have tenderness in his right inguinal area/right femoral artery access site. He is noted to have an area of ecchymoses there. Objective: Vital Signs Temp Pulse Resp BP Pulse Ox 98.4 F 59 L 25 H 142/97 H 99 01/24/19 09:00 01/24/19 09:00 01/24/19 09:00 01/24/19 09:00 01/24/19 09:00 Oxygen Delivery Method Room Air Weight: 240 lb 4.862 oz Body Mass Index (BMI) 34.4 Intake and Output for Last 24 Hours 01/22/19 01/23/19 01/24/19 23:59 23:59 23:59 Intake Total 5066 / 5066 800 / 800 Output Total 3275 / 3275 800 / 800 Balance 1791 / 1791 0 / 0 General: Awake, Alert, Oriented x 3, Cooperative, No Acute Distress HEENT: Atraumatic, Normocephalic Oral: Moist Mucosa Neck: Supple, Good ROM, No JVD Lungs: Clear to auscultation Cardiovascular: Regular Rhythm, Normal S1, Normal S2 Vascular: Normal Femoral Pulses Abdomen: Bowel Sounds Present, Soft, Non Tender Extremities: No edema Skin: - - Right inguinal area: Ecchymoses; pulses 2+/4+; no obvious bruit; no obvious hematoma Neurological: No Focal Motor or Sensory Deficit Psych/Mental Status: Appropriate 01/24/19 08:45: WBC 6.4, RBC 5.04, Hgb 16.0, Hct 45.9, MCV 91.1, MCH 31.7, MCHC 34.9, RDW 12.5, RDW Differential 41.7, Plt Count 141 L, MPV 9.2 01/24/19 08:45: Sodium 140, Potassium 3.6, Chloride 107, Carbon Dioxide 24.0, Anion Gap 9, BUN 8, Creatinine 1.01, Est GFR (MDRD) Af Amer 95, Est GFR (MDRD) Non-Af 78, BUN/Creatinine Ratio 7.9 L, Glucose 112 H, Calcium 8.5, Triglycerides 197, Cholesterol 127, LDL Cholesterol 53, VLDL Cholesterol 39, HDL Cholesterol 35 L 01/24/19 08:45: Hgb Cancelled, Hct Cancelled 01/24/19 08:45: Sodium Cancelled, Potassium Cancelled, Chloride Cancelled, Carbon Dioxide Cancelled, Anion Gap Cancelled, BUN Cancelled, Creatinine Cancelled, Est GFR (MDRD) Af Amer Cancelled, Est GFR (MDRD) Non-Af Cancelled, BUN/Creatinine Ratio Cancelled, Glucose Cancelled, Calcium Cancelled Rhythm: Sinus rhythm Medical Necessity - Tobacco Use Smoking Status: Former smoker Assessment/Plan 1. CAD status post previous RCA PTCA/JAYLIN now status post LAD/diagonal branch PTCA/JAYLIN At the present time the patient appears to be without any obvious post procedure related adverse events with respect to his cardiovascular status. He does have right inguinal area ecchymoses with maintained right femoral artery pulses and no obvious bruit or hematoma. However, he is tender to the touch in this area. From a cardiac standpoint he will continue cardiovascular medical management. He is being considered for a staged procedure to his LCx distribution. In the interim based upon his concerns of the right femoral artery area he will be further assessed for any obvious vascular concerns with a right femoral artery duplex study to evaluate for any obvious evidence of fistul a/pseudoaneurysm, etc. that is not being detected on examination. 2. Hyperlipidemia He will continue risk factor evaluation and care as deemed appropriate. 3. Hypertension The patient will continue antihypertensive therapy with adjustment as needed. Overall, if the patient appears to be symptomatically hemodynamically stable and is not found to have any obvious ongoing concerns with respect to his right femoral artery vasculature, etc., requiring continued inpatient evaluation and care, then hopefully he can be released home for continued outpatient cardiovascular follow-up. Comment: The above was discussed reviewed with the patient, his spouse, and Dr. Combs who performed his PCI procedure. This note was generated using a voice recognition system and there may be incorrect words, spelling or punctuation that were not noted when reviewing the office note prior to saving.
--- NOTE | 2019-01-24 10:00 | EKG12_ITS ---
Test Reason : POST PCI Blood Pressure : / mmHG Vent. Rate : 049 BPM Atrial Rate : 049 BPM P-R Int : 184 ms QRS Dur : 100 ms QT Int : 446 ms P-R-T Axes : 046 033 007 degrees QTc Int : 402 ms Marked sinus bradycardia Abnormal ECG When compared with ECG of 16-MAY-2018 17:05, No significant change was found Confirmed by KORY GERARD ([id number]), primer expeditor and drier OMKAR MARTIN ([id number]) on 01/28/2019 2:31:25 PM Referred By: Esteban Grigsby Confirmed By:KVNG GERARD
--- NOTE | 2019-01-24 15:07 | OP.PCM_ITS ---
Problem List (1) Pseudoaneurysm following procedure Status: Acute Report of Operation Date of Procedure: 01/24/19 Pre-Operative Diagnosis: Post cardiac intervention right groin pseudoaneurysm Post-Operative Diagnosis: Same Surgery/Procedure Performed:: Ultrasound-guided thrombin injection right groin pseudoaneurysm Description of Surgical Findings:: I had an opportunity to interview and examine this patient. He has a bilobed right groin pseudoaneurysm subsequent to a cardiac interventional procedure. He is on clopidogrel and aspirin therapy. He has focal discomfort at the area. He otherwise is not diabetic. Does not have a history of peripheral vascular disease. He has excellent right popliteal DP and PT 3+ pulses. The right groin is ecchymotic but not overtly tightly swollen. He is tender directly over the femoral artery. I have reviewed his duplex imaging and concur At the bedside in the ICU timeout and informed consent was obtained. The right groin was prepped with ChloraPrep. Ultrasound was used to identify the bilobed aneurysm. Under ultrasound guidance 1% lidocaine was instilled 0.5 cc. Then utilizing a 25-gauge needle and under strict ultrasound guidance I advanced that into the very most superficial portion of the superficial cavity. Slowly and under direct color Doppler visualization I injected 0.2 cc of 1000 unit/cc thrombin. Complete obliteration of flow within the bilobed pseudoaneurysm and the pseudoaneurysm neck was achieved. The [place] vessels were noted to be widely patent. He remained as having a 3+ right popliteal DP and PT pulse. He was asymptomatic throughout the entire procedure. Successfully treated pseudoaneurysm right groin. Patient will be at bedrest for 4 hours. I anticipate follow-up duplex imaging tomorrow. Xavier Carey M.D., F.A.C.S. Type of Anesthesia:: Local
--- NOTE | 2019-01-24 15:09 | ADUL_ITS ---
Reason For Study: Pseudoaneurysm Right Velocities Clotted pseudoaneurysm s/p thrombin injection. Procedure Exam performed portable in ICU/CCU. Interpretation Summary Successfully thrombosed right groin pseudoaneurysm status post injection Ordering Physician: Xavier Carey Referring Physician: MD Xavier El Performed By: Jessica Vargas RVT
[2019-01-24] MEDS: Morphine 2 MG/ML Syringe IV (15:47)
--- NOTE | 2019-01-24 17:00 | PCM.DC.SUM ---
Discharge Date and Diagnosis Date of Admission: 01/23/19 Date of Discharge: 01/24/19 - Primary Discharge Diagnosis Active and Suspected Problems (Last Reviewed 12/27/18 @ 11:02 by Ramya Fatima) CAD status post LAD and diagonal branch PTCA/JAYLIN Pseudoaneurysm following procedure (Acute) - Secondary Discharge Diagnosis Chronic Problems (Last Reviewed 12/27/18 @ 11:02 by Ramya Fatima) Essential hypertension (Chronic) Pancytopenia (Chronic) Adenocarcinoma of cecum (Chronic) Presence of stent in coronary artery (Chronic ~01/23/19) PTCA/JAYLIN of Prox RCA 05/15/17; PTCA/JAYLIN to prox Diag #1 and PTCA/JAYLIN to mida LAD 01/23/19 GI bleed (Chronic) Anemia (Chronic) Chemotherapy Hyperlipemia, mixed (Chronic) Atherosclerotic heart disease of [place] coronary artery without angina pectoris (Chronic) PTCA/JAYLIN of Prox RCA 05/15/17 NSTEMI (non-ST elevated myocardial infarction) (Chronic) Peptic ulcer disease (Chronic) Hospital Course and Treatment Operations: None, - - laparoscopic extended right hemicolectomy Procedures: Cardiac catheterization, - - Cardiac intervention Right femoral artery pseudoaneurysm peripheral vascular surgery thrombin injection Summary of Care Provided: The patient is a 69 year old white male with a past medical history of CAD status post previous RCA PCI who presented for outpatient cardiovascular evaluation based upon concerning symptoms and an abnormal exercise tolerance test/imaging study. The patient underwent diagnostic cardiac catheterization. This subsequently led to LAD/diagonal branch PTCA/JAYLIN. The patient remained in the ICU overnight. On the first post procedure day the patient was noted to have right inguinal area discomfort. He was subsequently evaluated with a right femoral artery duplex study. It demonstrated findings compatible with a right femoral artery pseudoaneurysm. He was then evaluated by peripheral vascular surgery who subsequently performed a thrombin injection. The patient subsequently recuperated in the ICU overnight. He was reassessed the following morning by Dr. Combs of interventional cardiology. He appeared to remain symptomatically and hemodynamically stable. His repeat right femoral artery duplex study was reported as negative with respect to any residual findings of pseudoaneurysm. He was subsequently released home for continued outpatient cardiovascular follow-up with tentative plans for a future staged PCI of the LCx system via the left femoral artery approach with recommendations to avoid access if at all possible of the right femoral artery for approximately 1 year. [] Subjective: This is a 69-year-old white male who is awake and alert and in no acute distress. - Physical Exam General: Alert, Oriented x3, Cooperative, No apparent distress HEENT: Atraumatic, PERRLA, EOMI, Normocephalic Oral: Moist Mucosa Neck: Supple, No JVD Lungs: Clear to auscultation Cardiovascular: Regular rate, Regular Rhythm, Normal S1 Abdomen: Bowel Sounds Present, Soft, Non Tender Extremities: No edema Neurological: Neuro grossly intact Psych/Mental Status: Appropriate Comment: Right inguinal area: Ecchymotic: Pulse 2+/4+: No obvious bruit: No obvious Vital Signs Temp Pulse Resp BP Pulse Ox 98.3 F 63 10 L 131/76 H 94 01/24/19 12:00 01/24/19 16:00 01/24/19 16:00 01/24/19 16:00 01/24/19 16:00 Oxygen Delivery Method Room Air Weight: 240 lb 4.862 oz Body Mass Index (BMI) 34.4 Intake and Output for Last 24 Hours 01/22/19 01/23/19 01/24/19 23:59 23:59 23:59 Intake Total 5066 / 5066 1040 / 1040 Output Total 3275 / 3275 800 / 800 Balance 1791 / 1791 240 / 240 Laboratory Tests Past 24 Hrs 01/24/19 01/24/19 01/24/19 08:45 08:45 08:45 WBC 6.4 RBC 5.04 Hgb 16.0 Cancelled Hct 45.9 Cancelled MCV 91.1 MCH 31.7 MCHC 34.9 RDW 12.5 RDW Differential 41.7 Plt Count 141 L MPV 9.2 Sodium 140 Potassium 3.6 Chloride 107 Carbon Dioxide 24.0 Anion Gap 9 BUN 8 Creatinine 1.01 Estim Creat Clear Calc 72.28 Est GFR (MDRD) Af Amer 95 Est GFR (MDRD) Non-Af 78 BUN/Creatinine Ratio 7.9 L Glucose 112 H Calcium 8.5 Triglycerides 197 Cholesterol 127 LDL Cholesterol 53 VLDL Cholesterol 39 HDL Cholesterol 35 L 01/24/19 08:45 WBC RBC Hgb Hct MCV MCH MCHC RDW RDW Differential Plt Count MPV Sodium Cancelled Potassium Cancelled Chloride Cancelled Carbon Dioxide Cancelled Anion Gap Cancelled BUN Cancelled Creatinine Cancelled Estim Creat Clear Calc Cancelled Est GFR (MDRD) Af Amer Cancelled Est GFR (MDRD) Non-Af Cancelled BUN/Creatinine Ratio Cancelled Glucose Cancelled Calcium Cancelled Triglycerides Cholesterol LDL Cholesterol VLDL Cholesterol HDL Cholesterol Discharge Diet: Low fat/ Low Cholesterol Discharge Activity: May Not Drive - May not drive x48 hours, May Shower - May shower in 1 day, May Take a Tub Bath - Take a tub bath in approximately 7 days unless otherwise directed by peripheral vascular surgery May shower in (days): 1 - No tub baths for 5 days May resume sexual activity in: 1-2 weeks Weight Bearing Status: - - Avoid any significant heavy/exertional activity/lifting until evaluated in the outpatient setting Call your doctor if your incision/area has: Continuous Slow Oozing, Sudden Increased Bleeding, Increased Pain/ Swelling, Increased Redness, Foul Smelling Discharge, Swelling at the incision site Call your doctor if you observe: Fever of 101 or Higher, Shortness of breath, Chest pain Remove Dressing in (days):: 1 Cleanse incision/area with: Soap & Water Home Medications: Medications to take at Discharge RX: Psyllium [Metamucil] 1 packet PO DAILY 05/13/17 RX: Rabeprazole Sodium [Aciphex] 20 mg PO BID 05/13/17 RX: Tamsulosin HCl [Flomax] 0.4 mg PO QHS 05/13/17 RX: Glucosamine/MSM/Chondroitin A [Glucosamine Chondroit MSM Tab] 1 ea PO DAILY 03/14/18 RX: Aspirin E.C. [Ecotrin] 81 mg PO DAILY@0800 03/19/18 triamcinolone acetonide 55 mcg nasal spray aerosol 2 spray INTRANASAL QHS 04/18/18 atorvastatin 80 mg tablet 80 mg PO QHS #90 tab 06/05/18 isosorbide mononitrate ER 30 mg tablet,extended release 24 hr 30 mg PO DAILY #90 tab 06/05/18 lisinopril 20 mg tablet 20 mg PO DAILY #90 tab 06/05/18 metoprolol tartrate 25 mg tablet 25 mg PO BID #180 tab 06/05/18 clopidogrel 75 mg tablet 75 mg PO DAILY #30 tab 01/15/19 RX: Polyethylene Glycol 3350 [Miralax] 17 gm PO DAILY 01/23/19 Other Amb Orders: Phase II, Outpatient Cardiac Rehab Location: None Selected Primary Care Physician: Xavier El DO [Primary Care Provider] - Please Follow Up With: Fady Comer - Nurse Practitioner When: 02/15/2019 at 11:30 AM Additional Instructions: You will continue with aspirin therapy. He will remain on Plavix therapy for at least one year. If anyone asks you to stop your Plavix please call the [facility] Office first at [phone]. You are scheduled for an office appointment on 02/15/2019 at 11:30 AM with Nurse Panda Pina. Disposition: Home Minutes spent on discharge:: 45 Patient Condition:: Stable Medical Necessity - Tobacco Use Smoking Status: Former smoker Meaningful Use Info Meaningful Use Diagnoses (Choose all that apply): None applicable
[2019-01-24] MEDS: LORazepam 1 MG Tablet PO (17:18)
[2019-01-24] MEDS: Acetaminophen 325 MG Tablet 650 MG PO (17:18)
--- NOTE | 2019-01-24 17:38 | PCM.PN.CARD ---
Subjectve: The patient is now status post right femoral artery pseudoaneurysm thrombin injection. He appears to be resting comfortably at this time in no acute distress. Objective: Vital Signs Temp Pulse Resp BP Pulse Ox 98.3 F 61 16 147/87 H 97 01/24/19 12:00 01/24/19 17:00 01/24/19 17:00 01/24/19 17:00 01/24/19 17:00 Oxygen Delivery Method Room Air Weight: 240 lb 4.862 oz Body Mass Index (BMI) 34.4 Intake and Output for Last 24 Hours 01/22/19 01/23/19 01/24/19 23:59 23:59 23:59 Intake Total 5066 / 5066 1040 / 1040 Output Total 3275 / 3275 800 / 800 Balance 1791 / 1791 240 / 240 General: Awake, Alert, Oriented x 3, Cooperative, No Acute Distress HEENT: Atraumatic, Normocephalic, PERRL, EOMI, Sclera Non Icteric Oral: Moist Mucosa Neck: Supple, Good ROM, No JVD Lungs: Clear to auscultation Cardiovascular: Regular Rhythm, Normal S1, Normal S2 Vascular: Normal Femoral Pulses Abdomen: Bowel Sounds Present, Soft, Non Tender Extremities: No edema Skin: - - Right inguinal area: Positive ecchymoses: Right femoral artery pulse 2+/4+ without obvious bruit or hematoma Neurological: No Focal Motor or Sensory Deficit Psych/Mental Status: Appropriate 01/24/19 08:45: WBC 6.4, RBC 5.04, Hgb 16.0, Hct 45.9, MCV 91.1, MCH 31.7, MCHC 34.9, RDW 12.5, RDW Differential 41.7, Plt Count 141 L, MPV 9.2 01/24/19 08:45: Sodium 140, Potassium 3.6, Chloride 107, Carbon Dioxide 24.0, Anion Gap 9, BUN 8, Creatinine 1.01, Est GFR (MDRD) Af Amer 95, Est GFR (MDRD) Non-Af 78, BUN/Creatinine Ratio 7.9 L, Glucose 112 H, Calcium 8.5, Triglycerides 197, Cholesterol 127, LDL Cholesterol 53, VLDL Cholesterol 39, HDL Cholesterol 35 L 01/24/19 08:45: Hgb Cancelled, Hct Cancelled 01/24/19 08:45: Sodium Cancelled, Potassium Cancelled, Chloride Cancelled, Carbon Dioxide Cancelled, Anion Gap Cancelled, BUN Cancelled, Creatinine Cancelled, Est GFR (MDRD) Af Amer Cancelled, Est GFR (MDRD) Non-Af Cancelled, BUN/Creatinine Ratio Cancelled, Glucose Cancelled, Calcium Cancelled Rhythm: Sinus rhythm Medical Necessity - Tobacco Use Smoking Status: Former smoker Assessment/Plan 1. CAD status post previous RCA PTCA/JAYLIN now status post LAD/diagonal branch PTCA/JAYLIN At the present time the patient appears to be without any obvious post procedure related adverse events with respect to his cardiovascular status. From a cardiac standpoint he will continue cardiovascular medical management. He is being considered for a staged procedure to his LCx distribution. 2. Hyperlipidemia He will continue risk factor evaluation and care as deemed appropriate. 3. Hypertension The patient will continue antihypertensive therapy with adjustment as needed. 4. Right femoral artery pseudoaneurysm status post thrombin injection The patient has been evaluated by peripheral vascular surgery. Dr. Carey's consult and assistance is appreciated. He appears to be without obvious adverse event from his right femoral artery pseudoaneurysm thrombin injection. He will continue to be monitored. He has been asked by peripheral vascular surgery to have a follow-up evaluation and follow-up right femoral artery duplex study tomorrow. Comment: The above was discussed reviewed with the patient and his spouse. This note was generated using a voice recognition system and there may be incorrect words, spelling or punctuation that were not noted when reviewing the office note prior to saving.
[2019-01-24] MEDS: Tamsulosin HCl 0.4 MG Capsule PO (21:41)
[2019-01-24] MEDS: Atorvastatin Calcium 80 MG Tablet PO (21:41)
[2019-01-24] MEDS: Fluticasone 0.05% 1 SPRAY NASAL.SRY 2 SPRAY NASAL (21:41)
[2019-01-25] VITALS (16 sets, daily range): BP systolic 125–173; BP diastolic 70–101; PULSE 46–68; RESP 12–19; TEMP 36.6–36.7; O2SAT 95–99
[2019-01-25 04:36] LABS: Anion Gap 8 (5-15); BUN 9 mg/dL (7-18); BUN/Creat Ratio 8.9 RATIO (10-20); Calcium,Total 8.6 mg/dL (8.5-10.1); Chloride 108 mmol/L (98-107); Creatinine, Serum 1.01 mg/dL (0.70-1.30); EST Glomerular Filtration Rate 78 mL/min (>60); Est Glom Filt Rate - Afr Amer 95 mL/min (>60); Estimated Creatinine Clearance 72.28 ml/min; Glucose 99 mg/dL (74-106); Potassium 3.7 mmol/L (3.5-5.1); Sodium Level 142 mmol/L (136-145)
--- NOTE | 2019-01-25 05:55 | ADUL_ITS ---
Reason For Study: S/P thrombin injection Right Velocities Clotted pseudoaneurysm s/p thrombin injection 01/24/19. SFA PSV 70.9 cm/sec. Procedure Exam performed portable in ICU/CCU. Comments Prelim to RN. Interpretation Summary Right groin pseudoaneurysm remains thrombosed similar to post procedure imaging from yesterday. Normal flow right superficial femoral artery Ordering Physician: Xavier Carey Referring Physician: MD Xavier El Performed By: Jessica Vargas RVT
[2019-01-25] MEDS: Metoprolol Tartrate 25 MG Tablet PO (08:04)
[2019-01-25] MEDS: Isosorbide Mononitrate 30 MG Tablet PO (08:04)
[2019-01-25] MEDS: Aspirin E.C. 81 MG Tablet PO (08:04)
[2019-01-25] MEDS: Lisinopril 20 MG Tablet PO (08:04)
[2019-01-25] MEDS: Clopidogrel Bisulfate 75 MG Tablet PO (08:05)
[2019-01-25] MEDS: Pantoprazole Sodium 20 MG Tablet PO (08:05)
[2019-01-25] MEDS: Psyllium 1 PACKET PO (08:09)
--- NOTE | 2019-01-25 10:00 | EKG12_ITS ---
Test Reason : AM EKG Blood Pressure : / mmHG Vent. Rate : 056 BPM Atrial Rate : 056 BPM P-R Int : 170 ms QRS Dur : 100 ms QT Int : 424 ms P-R-T Axes : 047 046 029 degrees QTc Int : 409 ms Sinus bradycardia Otherwise normal ECG Confirmed by KIRSTIN LUKE, ESTEBAN ([id number]), editor managing director OMKAR MARTIN ([id number]) on 01/30/2019 2:13:32 PM Referred By: Esteban Fulton Confirmed By:ESTEBAN FULTON MD
--- NOTE | 2019-01-25 11:52 | PN.CARD_ITS ---
Subjectve: I have patient doing very well this morning. Repeat ultrasound of his groin showed complete resolution of his pseudoaneurysm and intact thrombin injection. He has mild ecchymosis of his right groin however it is nontender, there are no bruits, and he has 2+ DP PT pulses bilaterally. Telemetry is negative. No chest pain or anginal symptoms. Objective: Vital Signs Temp Pulse Resp BP Pulse Ox 98.1 F 59 L 12 150/79 H 98 01/25/19 04:00 01/25/19 11:00 01/25/19 11:00 01/25/19 11:00 01/25/19 11:00 Oxygen Delivery Method Room Air Weight: 240 lb 4.862 oz Body Mass Index (BMI) 34.4 Intake and Output for Last 24 Hours 01/23/19 01/24/19 01/25/19 23:59 23:59 23:59 Intake Total 5066 / 5066 1520 / 1520 200 / 200 Output Total 3275 / 3275 800 / 800 Balance 1791 / 1791 720 / 720 200 / 200 General: Awake, Alert, Oriented x 3 HEENT: PERRL, EOMI, Sclera Non Icteric Neck: Supple, Good ROM, No Lymph Node Enlargement Lungs: Clear to auscultation Cardiovascular: Regular Rhythm, Normal S1, Normal S2, No Murmurs, No Rubs, No Gallops Vascular: No Carotid Bruits, Normal Femoral Pulses, Normal Radial Pulses, Normal Dorsalis Pedal Pulse, Normal Posterior Tibial Pulses Abdomen: Bowel Sounds Present, Soft, Non Tender, No HSM, No Organomegaly Extremities: No Cyanosis, No Clubbing, No edema Neurological: No Focal Motor or Sensory Deficit 01/25/19 04:15: Sodium 142, Potassium 3.7, Chloride 108 H, Carbon Dioxide 26.0, Anion Gap 8, BUN 9, Creatinine 1.01, Est GFR (MDRD) Af Amer 95, Est GFR (MDRD) Non-Af 78, BUN/Creatinine Ratio 8.9 L, Glucose 99, Calcium 8.6 Rhythm: EKG: ECHO: Stress Test: Cardiac Cath: PCI: CT Surgery: Holter monitor: EPS: PPM: CXR: Chest CT Scan: Medical Necessity - Tobacco Use Smoking Status: Former smoker Assessment/Plan 1. Coronary artery disease: Patient underwent successful angioplasty and drug- eluting stenting to his LAD and diagonal branch, and return in 3 weeks time for elective PCI of his distal left circumflex/obtuse marginal. I would recommend proceeding with PCI via the left groin given his recent pseudoaneurysm. In fact, I would avoid axis via the right groin for at least one years time should he require any additional therapy. Once he has completed his elective intervention, I would then recommend that he participate in cardiac rehab given his revascularization. The meantime will continue his baby aspirin, Plavix, Imdur and lisinopril. 2. Hyperlipidemia: Continue statin based medications. We will repeat lipid profile in 6 weeks time. 3. Right groin pseudoaneurysm: The patient underwent successful thrombin injection with Dr. Carey yesterday, and his repeat ultrasound this morning shows no evidence of recurrent pseudoaneurysm. 4. Patient may be discharged home and follow-up with Dr. Grigsby going forward. Code Visit Inpatient E&M: 71182 Subs Hosp L2
== END 2019-01-25 12:00 | disposition home or self-care (01) ==
LOC: CLSP 06:59 → ICU 10:52
PROVIDERS: Internal Medicine Cardiovascular Disease; Family Provider Preventive Medicine Occupational Medicine; PCP Preventive Medicine Occupational Medicine; Referring Provider Internal Medicine Cardiovascular Disease; Visit Provider Internal Medicine Cardiovascular Disease
DX: I25.110 Atherosclerotic heart disease of native coronary artery with unstable angina pectoris (principal); I72.4 Aneurysm of artery of lower extremity; D61.818 Other pancytopenia; I10 Essential (primary) hypertension; E78.2 Mixed hyperlipidemia; R94.39 Abnormal result of other cardiovascular function study; Z79.82 Long term (current) use of aspirin; Z79.02 Long term (current) use of antithrombotics/antiplatelets; Z79.899 Other long term (current) drug therapy; Z85.038 Personal history of other malignant neoplasm of large intestine; Z92.21 Personal history of antineoplastic chemotherapy; Z87.891 Personal history of nicotine dependence; Z95.5 Presence of coronary angioplasty implant and graft
CPT/HCPCS: 36002; 76942; 71046; 80048; 80061; 85027; 85347; 92928; 92929; 93005; 93458; 93571; 93926; 99152; 99153; C1760; J0153; J7030; J7040; Q9967; C1725; C1769; C1874; C1887; C1894; C9600; C9601

== ENCOUNTER → 2019-01-29 14:48 | Outpatient (CLI) | payer MEDICARE, SELFPAY ==
[2019-01-23 10:52] VITALS: BMI 34.4
[2019-01-23 14:14] VITALS: BMI 34.3
--- NOTE | 2019-01-29 14:49 | ADUL_ITS ---
Reason For Study: F/U pseduaneurysm thrombin injection Right Velocities Clotted pseudoaneurysm s/p thrombin injection 01/24/19. SFA PSV 123.5 cm/sec CFV is patent with normal doppler signals. Procedure Exam performed in department. Interpretation Summary Right groin pseudoaneurysm remains thrombosed with normal flow in the immediate superficial femoral artery and common femoral vein. Ordering Physician: Xavier Carey Referring Physician: MD Xavier El Performed By: Jessica Vargas RVT
== END ==
PROVIDERS: Family Provider Preventive Medicine Occupational Medicine; PCP Preventive Medicine Occupational Medicine; Referring Provider Surgery; Visit Provider Surgery
DX: I72.4 Aneurysm of artery of lower extremity (principal); I97.89 Other postprocedural complications and disorders of the circulatory system, not elsewhere classified
CPT/HCPCS: 93926

== ENCOUNTER 2019-02-13 10:02 | Day surgery (SDC) | payer MEDICARE, SELFPAY ==
[2019-01-23 10:52] VITALS: BMI 34.4
[2019-01-23 14:14] VITALS: BMI 34.3
[2019-02-06 10:01] VITALS: BMI 34.0
--- NOTE | 2019-02-06 10:52 | HP_ITS ---
HPI HPI History of Present Illness Surgical H&P: Yes Details: This is a 69-year-old white male who presents today for outpatient cardiovascular follow-up. As you recall he has a history of CAD status post RCA PCI superimposed upon hyperlipidemia and hypertension. He is now recuperating from a recent LAD PCI/JAYLIN and a right femoral artery pseudoaneurysm requiring thrombin injection closure. He is scheduled for an upcoming staged procedure to the LCx/OM distribution. He states he remains as an outpatient. He continues with shortness of breath/dyspnea with exertion. He has had no concerning chest discomfort that he is aware of. There is been no orthopnea or PND or peripheral pitting edema. He has no near syncope or syncope. He has had general surgery/vascular surgery follow-up for his right femoral artery pseudoaneurysm. He was reported is healing well with no recommendations for additional diagnostic studies or therapeutic intervention. Intake Vital Signs 02/06/19 Height 5 ft 10 in 02/06/19 Weight: 237 lb 02/06/19 Body Mass Index (BMI) 34.0 02/06/19 Blood Pressure 132/84 H 02/06/19 Blood Pressure Location Lt brachial 02/06/19 Blood Pressure Position Sitting 02/06/19 Respiratory Rate 16 02/06/19 Pulse Rate 56 L 02/06/19 Pulse Source Auscultation 02/06/19 Body Mass Index (BMI) 34.4 Intake Visit Reasons: Update H & P Handle Turner Required: No Accompanied by: Allergies olanzapine [From Zyprexa] Adverse Reaction (Severe, Verified 02/06/19 10:01) tremors, muscle twitching oxaliplatin Adverse Reaction (Severe, Verified 02/06/19 10:01) neuropathy omeprazole [From Prilosec] Adverse Reaction (Verified 02/06/19 10:01) lowers WBCs Medications Rabeprazole Sodium [Aciphex] 20 mg PO BID 05/13/17 [History Confirmed 02/06/19] Tamsulosin HCl [Flomax] 0.4 mg PO QHS 05/13/17 [History Confirmed 02/06/19] Glucosamine/MSM/Chondroitin A [Glucosamine Chondroit MSM Tab] 1 ea PO DAILY 03/14/18 [History Confirmed 02/06/19] Aspirin E.C. [Ecotrin] 81 mg PO DAILY@0800 03/19/18 [History Confirmed 02/06/19] triamcinolone acetonide 55 mcg nasal spray aerosol 2 spray INTRANASAL QHS 04/18/18 [History Confirmed 02/06/19] atorvastatin 80 mg tablet 80 mg PO QHS #90 tab 06/05/18 [Rx Confirmed 02/06/19] isosorbide mononitrate ER 30 mg tablet,extended release 24 hr 30 mg PO DAILY #90 tab 06/05/18 [Rx Confirmed 02/06/19] lisinopril 20 mg tablet 20 mg PO DAILY #90 tab 06/05/18 [Rx Confirmed 02/06/19] metoprolol tartrate 25 mg tablet 25 mg PO BID #180 tab 06/05/18 [Rx Confirmed 02/06/19] clopidogrel 75 mg tablet 75 mg PO DAILY #90 tab 02/06/19 [Rx Confirmed 02/06/19] polyethylene glycol 3350 17 gram oral powder packet 17 g PO DAILY PRN ea 02/06/19 [History Confirmed 02/06/19] psyllium husk (aspartame) 3.4 gram oral powder packet 1 packet PO DAILY PRN 02/06/19 [History Confirmed 02/06/19] PFSH Medical History Essential hypertension (Chronic) Hyperlipemia, mixed (Chronic) Atherosclerotic heart disease of [place] coronary artery without angina pectoris (Chronic) Chest pain (Acute) NSTEMI (non-ST elevated myocardial infarction) (Chronic) Peptic ulcer disease (Chronic) BPH (benign prostatic hyperplasia) (Chronic) Cancer of transverse colon (Chronic) GERD (gastroesophageal reflux disease) (Chronic) Hyperglycemia (Chronic) HTN (hypertension) (Inactive) Surgical History Presence of stent in coronary artery (Chronic ~01/23/19) H/O removal of cyst (Chronic) History of left heart catheterization (Chronic) History of rectal surgery (Chronic) Kidney stone removal (Chronic) Postsurgical percutaneous transluminal coronary angioplasty (PTCA) status (Chronic ~05/15/17) Right eye surgery (Chronic) S/P right hemicolectomy (Resolved) History of percutaneous coronary intervention (Inactive) Family History Father CAD (coronary artery disease) Mother CAD (coronary artery disease) Social History Smoking Status: Former smoker ROS Const Const: Negative for fatigue, weakness, frequent falls, excessive sweating, weight gain or weight loss Eyes Eyes: Negative for transient loss of vision, blurry vision or change in vision ENT ENT: Negative for dizziness or balance problems Cardio Chest Pain: No Palpitations: No Edema: None Muscle aches with walking: None Resp Respiratory: Positive for SOB with activity (baseline, occasional); negative for SOB at rest GI GI: Negative vomiting or vomiting blood/hematemesis : Negative for hematuria Musc Musc: Negative for muscle aches/ myalgia, muscle weakness, joint pain or balance problems Skin Skin: Negative non-healing lesions or rash Neuro Neuro: Negative for dizziness, lightheadedness, orthostatic symptoms, frequent falls, weakness or blurry vision [place] Hematologic/Lymphatic: Negative for easy bleeding Endo Endo: Negative for fatigue or excessive sweating Psych Psych: Negative for anxiety or depression Allergy Allergy/Immunology: Negative for hives, Negative for rash Cardiology Exam Const Appearance: cooperative, healthy appearing, comfortable, no acute distress, well developed and well groomed Nutritional Appearance: overweight Orientation: alert, awake and oriented x3 Head Head: normal to inspection, normocephalic and atraumatic Ears: hearing grossly normal bilaterally Nose: external nose normal Face and Sinus: face symmetric Mouth: oral mucosae normal Teeth and gingiva: fair dentition Eyes Eyelids: eyelids normal Conjunctivae: conjunctivae normal Pupils: PERRL EOM: EOM intact bilaterally Neck Neck: normal visual inspection and full ROM Carotids: normal carotid upstroke Chest Chest inspection: normal inspection of the chest, symmetric chest movement and normal respiratory effort Auscultation: Bilateral: Clear to Auscultation Cardio Palpation: normal PMI Rhythm: regular rhythm Heart sounds: S1 normal and S2 normal GI GI: normal to inspection, soft and bowel sounds present Neuro General: alert, awake, oriented x3, gait normal, moves all extremities, no focal sensory deficit and no focal motor deficits Skin Skin: no rashes or lesions noted Extremities Pulses: Normal: Right Radial Pulse, Left Radial Pulse Psych Psychological: normal affect Assessment & Plan 1. Atherosclerosis of [place] coronary artery of [place] heart without angina pectoris I25.10 PTCA/JAYLIN of Prox RCA 05/15/17 Plan At the present time he appears to be doing well overall. He continues with shortness of breath/dyspnea on exertion. There is concerned that this can be an angina pectoris equivalent for him. Thus he will continue medical management. He will continue with plans for upcoming staged procedure/PCI to his LCx/OM system under the direction of Dr. Combs. In the interim he will continue medical therapy. 2. Presence of stent in coronary artery Z95.5 PTCA/JAYLIN of Prox RCA 05/15/17; PTCA/JAYLIN to prox Diag #1 and PTCA/JAYLIN to mida LAD 01/23/19 Plan Again he has a history of previous PCI to the RCA. He is status post a more recent PCI to the LAD/diagonal branch system as noted above. He will continue medical management and plans for upcoming staged PCI to the LCx/OM system. 3. Pseudoaneurysm following procedure I97.89; I72.9 Plan He did have a right femoral artery pseudoaneurysm. He required thrombin injection closure. He appears to be healing well at this time. There are no immediate plans for additional diagnostic studies or therapeutic intervention. 4. Hyperlipemia, mixed E78.2 Plan He will continue risk factor modification medical management. 5. Essential hypertension I10 Plan His blood pressure appears to be recently well controlled. He will continue medical therapy. 6. Dyspnea on exertion R06.09 Plan Again his dyspnea on exertion is concerning for angina pectoris equivalent. Thus he will continue medical therapy. He will proceed with his cardiovascular evaluation as noted above. Plan Detail Other Medications Changed: From: clopidogrel For Cardiac Cath 75 mg PO DAILY 90 tabs 3RF To: clopidogrel 75 mg PO DAILY 90 tabs 3RF Additional Comments Thank you for allowing me to participate in the care of your patient. Please don't hesitate to call if any issues arise. This note was generated using a voice recognition system and there may be incorrect words, spelling or punctuation that were not noted when reviewing the office note prior to saving. Follow Up 5 Months (as scheduled ) Coding Level of Care Code Off vis,est,level 3 Diagnoses Atherosclerosis of [place] coronary artery of [place] heart without angina pectoris I25.10 ??[place] vs. transplanted heart: [place] heart Presence of stent in coronary artery Z95.5 Pseudoaneurysm following procedure I97.89; I72.9 Hyperlipemia, mixed E78.2 Essential hypertension I10 Dyspnea on exertion R06.09 Coding Level of Care Code Off vis,est,level 3 Diagnoses Atherosclerosis of [place] coronary artery of [place] heart without angina pectoris I25.10 ??[place] vs. transplanted heart: [place] heart Presence of stent in coronary artery Z95.5 Pseudoaneurysm following procedure I97.89; I72.9 Hyperlipemia, mixed E78.2 Essential hypertension I10 Dyspnea on exertion R06.09 Supplemental Info Supplemental Information He had a transthoracic echocardiogram performed on 05/13/2017 Interpretation Summary The study was technically difficult. Contrast injection was performed. Segmental dysfunction with preserved ejection fraction (see wall motion). The estimated ejection fraction is 60 %. Trivial mitral valve insufficiency. Trivial tricuspid valve insufficiency. Mild focal aortic valve calcification. Unable to estimate RV systolic pressure/pulmonary artery pressure due to technically difficult study. Transmitral diastolic flow velocities suggest diastolic dysfunction (pseudonormal pattern). He had a treadmill stress test performed on 05/30/2017. 1. Technically adequate (percent predicted maximal heart rate greater than 85%) exercise tolerance test 2. The peak exercise ECG demonstrated somatic/motion artifact with beat to beat nonspecific ST segment variability with resolution towards baseline beginning by 1 minute in recovery with subsequent notation of approximately 0.5 - 1.[address] segment depression in leads I, II, III, aVF, and V4 through V6 during recovery (at approximately 5 minutes into recovery) with gradual resolution towards baseline at approximately 10 minutes into recovery. 3. Rare PVC during exercise and recovery He had a diagnostic cardiac catheterization performed at [facility] on 05/15/2017. DOMINANCE: Right Dominant LEFT HEART ASSESSMENT LV evaluation: not performed: please see echocardiogram report LEFT MAIN: Angiographically normal LEFT ANTERIOR DESCENDING ARTERY: PROX LAD: Eccentric: 25 % Stenosis MID LAD: Eccentric: 25 % Stenosis DIAGONAL 2: Proximal - Long: Diffuse: 85 % Stenosis (small caliber bifurcating vassel) DIAGONAL 3: Proximal - is occluded CIRCUMFLEX ARTERY: MID CIRC: Eccentric: 10-25 % Stenosis OM 2: Proximal - 50-75 % Stenosis (small caliber vessel) RIGHT CORONARY ARTERY: Mild luminal irregularities PROX RCA: Eccentric: 99 % Stenosis COLLATERAL FLOW: Collateral flow from Left to Right Cardiac catheterization: 01-23-19 CORONARY ANGIOGRAPHY DOMINANCE: Right Dominant LEFT HEART ASSESSMENT Left Ventricular Ejection Fraction: by LV Gram 65 % Normal LV wall motion Elevated Left Ventricular End Diastolic Pressure LVEDP: 20 mmHg LEFT MAIN: Angiographically normal LEFT ANTERIOR DESCENDING ARTERY: PROX LAD: Eccentric: 25 % Stenosis MID LAD: Eccentric: 50 % Stenosis DIAGONAL 2: Proximal - Long: Diffuse: 85 % Stenosis DIAGONAL 3: Proximal - is occluded CIRCUMFLEX ARTERY: MID CIRC: 10-25 % Stenosis OM 2: Proximal - 75 % Stenosis RIGHT CORONARY ARTERY: Mild luminal irregularities PROX RCA: Previously placed stent is patent COLLATERAL FLOW: Collateral flow from Left to Right Collateral flow from Right to Left VALVE FINDINGS: Normal Aortic Valve function Normal Mitral Valve function AORTIC ROOT: Angiographically normal He underwent PCI at [facility] on 05/15/2017. This included a JAYLIN to the RCA PCI: 01-23-19 CONCLUSIONS Successful PTCA/JAYLIN proximal DIAG#1 with a 2.25 x 20 Promus Synergy; 85%-->0%, no dissection or encroachment into LAD. Successful PTCA/JAYLIN mid LAD with a 4.0 x 28 Promus Synergy, post dilated throughout with a 4.0 x 12 NC Balloon; 75%-->0%, no dissection. FFR eval of LAD was 0.78 pre stent; 0.93 post stent. RECOMMENDATIONS Highly recommend quitting all tobacco products Follow up with primary pet handler Risk factor modification ASA indefinitely Plavix for at least 12 months Routine post interventional care Refer for Outpatient Cardiac Rehab Manual sheath removal per protocol Follow up with Dr. Grigsby Elective PCI of LCX/OM in 3 weeks. Successful Mynx closure of RFA. Labs LDL Cholesterol 53 mg/dL (0-130) 01/24/19 HDL Cholesterol 35 mg/dL (40-) L 01/24/19 Triglycerides 197 mg/dL (-199) 01/24/19 VLDL Cholesterol 39 mg/dL (5-40) 01/24/19 Diagnostics Electrocardiogram 01/25/19 Echocardiogram 03/16/18 Stress Test Nuclear Medicine 01/15/19 Stress Test 01/15/19 Cardiac Catheterization 01/23/19 Chest X-Ray 01/17/19 02/06/19 1052 <Electronically signed by Esteban Grigsby MD> Date Esteban Grigsby MD I have re-examined the patient. There are no clinical changes since date of exam.
[2019-02-12 10:11] VITALS: BMI 34.0
[2019-02-13] VITALS (30 sets, daily range): BP systolic 118–174; BP diastolic 66–106; PULSE 44–69; RESP 6–22; TEMP 36.4–36.5; O2SAT 95–98; BMI 33.0
--- NOTE | 2019-02-13 12:27 | CL.I_ITS ---
Patient Name: MYRNA CAPPS Study Date: 02/13/2019 Performing: Biju Combs MD Ht: 70 inches 178 cm : 1950 Wt: 238.4 lbs 108 kg Age: 69 Gender: male BSA: 2.25 PROCEDURE(S) PERFORMED [id number] W OR WO PTCA, SINGLE CORONARY ARTERY [id number], EACH ADD'L CORONARY ART, SAME MAJOR CLINICAL PROFILE AND CO-MORBIDITIES Indications: Stable Known CAD, LV Dysfunction, Other, New Onset Angina <= 2 months Heart Failure: NYHA Class: 1, Newly Diagnosed: No, Heart Failure Type: Systolic Stress/Imaging Date: 01/15/2019 Stress Test with SPECT MPI: Positive Low Risk Angina Classification Anginal Classification w/in 2 Weeks: No symptoms CAD Presentations: Other: Dyspnea on exertion Comorbidities/Risk Factors: Hypertension Dyslipidemia Prior CHF Prior PCI Chronic Lung Disease CONCLUSIONS Successful PTCA/JAYLIN distal LCX with a 2.5 x 24 Promus Synergy, post dilated proximally with a 3.0 x 8 NC Balloon; 85%-->0%, no dissection or perforation. Successful PCI with PTCA to the ostial OM#3 with a 2.0 x 12 NC Balloon; 85%--30%, no dissection or pe rforaration. RECOMMENDATIONS Highly recommend quitting all tobacco products Follow up with primary cognos report developer Risk factor modification ASA Indefinitley Plavix for at least 12 months Routine post interventional care Refer for Outpatient Cardiac Rehab Manual sheath removal per protocol Follow up with Dr. Combs Manual sheath removal. Complex procedure requiring multiple wire, balloons, OTW balloon at bifurcation. DESCRIPTION OF PROCEDURE The patient arrived to the procedure lab. The risks and benefits of the procedure as well as a full d escription of our services here and current unavailability of surgical backup were fully explained to the patient and/or their significant other prior to the catheterization. The Timeout was completed, verifying the correct patient and procedure. The patient's procedural site was prepped and draped in the usual fashion. Local anesthetic was given subcutaneously to left groin region with Lidocaine 2%. Using a modified Seldinger technique, arterial access was obtained via the left femoral artery, a 6Fr sheath was inserted.. The images were reviewed and options discussed. A decision was then made to pr oceed with an Intervention, IVUS or other adjunct procedure. 3.75 EBU Guide catheter was inserted and engaged into the LCA. BMW Guide wire was advanced to the Circumflex. 2x12 Emerge Balloon catheter was inserted. Runthrough Guide wire was advanced to the 3rd OM. Runthrough Guide wire was advanced to the Circumflex. 1.5x15 OTW Emerge Balloon catheter was ins erted. 2x12 Emerge Balloon catheter was inserted. Balloon catheter was advanced across lesion in the third obtuse marginal, ostial PTCA balloon inflated at 4 atms for 8 secs. 2x12 Emerge Balloon cathete r was inserted. 1.5x15 OTW Emerge Balloon catheter was inserted. Balloon catheter was advanced across lesion in the circumflex, distal. PTCA balloon inflated at 8 atms for 14 secs. PTCA balloon inflated at 12 atms for 20 secs. PTCA balloon inflated at 8 atms for 12 secs. PTCA balloon inflated at 10 holly s for 14 secs. 2x12 Emerge Balloon catheter was inserted. Balloon catheter was advanced across lesion in the circumflex, distal. PTCA balloon inflated at 8 atms for 10 secs. PTCA balloon inflated at 7 atms for 10 secs. PTCA balloon inflated at 7 atms for 10 secs. Angiogram performed post balloon dilatation. 2.5x24 Synergy Drug Eluting stent was inserted. Drug Eluting stent was advanced across the lesion in the circumflex, distal. 3x8 NC Emerge Balloon catheter was inserted. Balloon cat heter was advanced across lesion in the circumflex, distal. Angiogram performed post stent deployment . 2x12 Emerge Balloon catheter was inserted. 1.5x8 Emerge Balloon catheter was inserted. 3x8 NC Emerg e Balloon catheter was inserted. Balloon catheter was advanced across lesion in the circumflex, dista l. PTCA balloon inflated at 12 atms for 14 secs. BMW Guide wire was advanced to the 3rd OM. 1.5x8 Sharron rge Balloon catheter was inserted. Balloon catheter was advanced across lesion in the third obtuse ma rginal, ostial PTCA balloon inflated at 12 atms for 24 secs. 2x12 Emerge Balloon catheter was inserte d. Balloon catheter was advanced across lesion in the third obtuse marginal, ostial PTCA balloon inflated at 7 atms for 70 secs. Angiogram performed post stent deployment. The arterial erazo th was exchanged to a standard sheath and left inplace to be pulled in the holding area. The arterial sheath was sutured in place and capped INTERVENTION INFORMATION LESION SITE: 3rd OM (Ostial) Lesion Complexity: Non-High/Non-C, lesion at bifurcation: Yes, thrombus present: No, culprit lesion: No Pre Stenosis: 85 % Pre intervention SANAM flow: 3 PROCEDURE: Balloon Angioplasty Post Stenosis: 30 % Post intervention SANAM flow: 3 Lesion Devices: Post .014 BMW [place] Straight 190cm [employer] 6 Fr EBU3.75 100cm Guide Catheter Bernard Sci EMERGE MR 2.00x12 BALLOON Terumo .014 Runthrough Extra Floppy 180cm straight SMS GupShup Guide Wire Extension Bernard Sci EMERGE MR 1.50x08 BALLOON LESION SITE: Circumflex (Distal) Lesion Complexity: High/C, lesion at bifurcation: Yes, thrombus present: No, lesion length: 24 mm, cu lprit lesion: Yes Pre Stenosis: 85 % Pre intervention SANAM flow: 3 PROCEDURE: Drug Eluting Stent with pre and post dilatation Post Stenosis: 0 % Post intervention SANAM flow: 3 Lesion Devices: Bernard Sci EMERGE MR 2.00x12 BALLOON Terumo .014 Runthrough Extra Floppy 180cm straight SMS GupShup Guide Wire Extension Bernard Sci EMERGE OTW 1.50x15 BALLOON Bernard Sci Synergy MR JAYLIN 2.50x24 Bernard Sci NC EMERGE MR 3.00x08 BALLOON COMPLICATIONS No Complications PROCEDURE MEDICATIONS Oxygen: 2 L/min via nasal cannula Heparin 6000 unit(s) IV 02/13/2019 10:54:31 Heparin 4000 unit(s) IV 02/13/2019 11:43:25 Nitro 200 mcg IC 02/13/2019 10:56:19 Nitro 200 mcg IC 02/13/2019 10:56:19 Nitro 200 mcg IC 02/13/2019 11:37:55 Nitro 200 mcg IC 02/13/2019 11:48:14 SUMMARY OF HEMODYNAMIC DATA Time AIR REST ECG 10:20:04 AO 143/71 (100) SA 10:56:01 Signed By Biju Combs MD On 02/13/2019 12:27:11 Biuj Combs MD
[2019-02-13 12:46] LABS: ACT Activated Clotting Time 175 sec (74-137)
[2019-02-13 12:46] LABS: ACT Activated Clotting Time 202 sec (74-137)
[2019-02-13] MEDS: 0.9% Normal Saline 1,000 ML 150 ML IV (13:10)
--- NOTE | 2019-02-13 13:21 | EKG12_ITS ---
Test Reason : POST-STENT Blood Pressure : / mmHG Vent. Rate : 054 BPM Atrial Rate : 054 BPM P-R Int : 176 ms QRS Dur : 102 ms QT Int : 444 ms P-R-T Axes : 058 037 031 degrees QTc Int : 421 ms Sinus bradycardia Otherwise normal ECG Confirmed by KIRSTIN LUKE, RYLIE ([id number]), web content editor ALMA DELIA MORA ([id number]) on 02/18/2019 3:09:10 PM Referred By: Biju Combs Confirmed By:RYLIE FULTON MD
--- NOTE | 2019-02-13 13:59 | CRPHASE1 ---
<AshMari - Last Filed: 02/13/19 13:59> Patient Communication Former Patient:: Phase I - HE WAS SEEN ON HIS LAST ADMISSION AND CARDIAC REHAB DISCUSSED Bus Dispatcher [place]:: Biju Combs Risk Factors/Lifestyle Family History: Family History (Last Reviewed 02/06/19 @ 10:04 by Ramya Fatima) Father CAD (coronary artery disease) Mother CAD (coronary artery disease) Cardiac Rehabilitation Info Cardiac Rehabilitation Program Information: Cardiac Rehabilitation is important for patients like you who are recovering from a heart problem. Cardiac rehabilitation programs are recognized as integral to the continued care of the patient with coronary heart disease. The cardiac rehabilitation program is designed to optimize a patient's physical, psychological, and social functioning. Health acute care certified nursing assistant work in cardiac rehabilitation programs and assist you with getting the treatments you need to get stronger and healthier - like exercise, healthy eating habits, and medications. Cardiac rehabilitation has been show to help people with heart problems live longer and have better life enjoyment than people who do not go to cardiac rehabilitation. Please contact the Cardiac Rehabilitation Program at [facility] at in two weeks if you have not heard from them. <Bro West - Last Filed: 02/14/19 08:40> Patient Communication Former Patient:: Phase II PHII Cardiac Rehab Discussed with Patient:: Yes Guide to Cardiac Rehab Given to Patient:: Yes Cardiac Rehab Facility Choice List Given to Patient:: Yes Choice Program [facility] CR PHII:: Communication Given to CR, Refer to [facility] Refer Phase II Cardiac Rehab:: Yes Sessions:: 36 sessions - 3 days/wk, 12 weeks - Patient was given information on the Phase II program. Due to this being a staged procedure, he did not receive an additional booklet. Risk Factors/Lifestyle Family History: Family History (Last Reviewed 02/06/19 @ 10:04 by Ramya Fatima) Father CAD (coronary artery disease) Mother CAD (coronary artery disease) Cardiac Rehabilitation Info Cardiac Rehabilitation Program Information: Cardiac Rehabilitation is important for patients like you who are recovering from a heart problem. Cardiac rehabilitation programs are recognized as integral to the continued care of the patient with coronary heart disease. The cardiac rehabilitation program is designed to optimize a patient's physical, psychological, and social functioning. Health acute care certified nursing assistant work in cardiac rehabilitation programs and assist you with getting the treatments you need to get stronger and healthier - like exercise, healthy eating habits, and medications. Cardiac rehabilitation has been show to help people with heart problems live longer and have better life enjoyment than people who do not go to cardiac rehabilitation. Please contact the Cardiac Rehabilitation Program at [facility] at in two weeks if you have not heard from them.
--- NOTE | 2019-02-13 14:00 | CRPH1.INSTRU ---
General Education CAD and cardiac anatomy and function:: Not instructed Explanation of diagnoses and procedures:: Not instructed Sign/Symptoms of MT:: Not instructed Antiplatelet therapy: Not instructed Proper use of NTG-SL: Not instructed Emergency procedures and activation of EMS: Not instructed Compliance of all prescribed medications: Not instructed - PREVIOUSLY SEEN BY CARDIAC REHAB
[2019-02-13 14:21] LABS: ACT Activated Clotting Time 147 sec (74-137)
[2019-02-13] MEDS: Fluticasone 0.05% 1 SPRAY NASAL.SRY 2 SPRAY NASAL (21:08)
[2019-02-13] MEDS: Tamsulosin HCl 0.4 MG Capsule PO (21:08)
[2019-02-13] MEDS: Atorvastatin Calcium 80 MG Tablet PO (21:10)
[2019-02-13] MEDS: Metoprolol Tartrate 25 MG Tablet PO (21:10)
[2019-02-14] VITALS (12 sets, daily range): BP systolic 124–175; BP diastolic 70–97; PULSE 44–69; RESP 10–19; TEMP 36.3–36.6; O2SAT 94–98
[2019-02-14 04:41] LABS: Hematocrit 42.7 % (40-54); Hemoglobin 14.7 g/dl (13.0-16.5); Mean Corp Hgb Conc 34.4 g/gl (32-36); Mean Corpuscular Hgb 30.7 pg (27.0-32.0); Mean Corpuscular Volume 89.1 fL (80-94); Mean Platelet Vol. 8.8 fl (6.2-12.0); Platelet Count 153 K/mm3 (150-450); RBC Distribution Width CV 12.3 % (11.6-14.6); RBC Distribution Width SD 39.8 fl (35.1-43.9); Red Blood Count 4.79 M/mm3 (4.6-6.2); White Blood Count 4.8 K/mm3 (4.4-11.0)
[2019-02-14 04:45] LABS: Scan Indicated on CBC? Y/N NO
[2019-02-14 04:53] LABS: Anion Gap 7 (5-15); BUN 10 mg/dL (7-18); BUN/Creat Ratio 9.3 RATIO (10-20); Calcium,Total 8.5 mg/dL (8.5-10.1); Chloride 108 mmol/L (98-107); Creatinine, Serum 1.08 mg/dL (0.70-1.30); EST Glomerular Filtration Rate 72 mL/min (>60); Est Glom Filt Rate - Afr Amer 87 mL/min (>60); Estimated Creatinine Clearance 69.72 ml/min; Glucose 111 mg/dL (74-106); Potassium 3.7 mmol/L (3.5-5.1); Sodium Level 142 mmol/L (136-145)
--- NOTE | 2019-02-14 09:03 | PCM.PN.CARD ---
Subjectve: Patient feels much better today, no 24-hour events. Telemetry negative. EKG shows normal sinus rhythm with no acute changes. Left groin is clean/dry/intact, no thrills, bruits or hematoma. Hemoglobin and creatinine are within nominal limits. Objective: Vital Signs Temp Pulse Resp BP Pulse Ox 97.4 F L 54 L 18 156/91 H 96 02/14/19 04:00 02/14/19 07:00 02/14/19 07:00 02/14/19 07:00 02/14/19 07:00 Oxygen Delivery Method Room Air Weight: 240 lb 8.389 oz Body Mass Index (BMI) 33.0 Intake and Output for Last 24 Hours 02/12/19 02/13/19 02/14/19 23:59 23:59 23:59 Intake Total 2280 / 2280 120 / 120 Output Total 1750 / 1750 Balance 530 / 530 120 / 120 General: Awake, Alert, Oriented x 3 HEENT: PERRL, EOMI, Sclera Non Icteric Neck: Supple, Good ROM, No Lymph Node Enlargement Lungs: Clear to auscultation Cardiovascular: Regular Rhythm, Normal S1, Normal S2, No Murmurs, No Rubs, No Gallops Vascular: No Carotid Bruits, Normal Femoral Pulses, Normal Radial Pulses, Normal Dorsalis Pedal Pulse, Normal Posterior Tibial Pulses Abdomen: Bowel Sounds Present, Soft, Non Tender, No HSM, No Organomegaly Extremities: No Cyanosis, No Clubbing, No edema Neurological: No Focal Motor or Sensory Deficit 02/14/19 04:30: WBC 4.8, RBC 4.79, Hgb 14.7, Hct 42.7, MCV 89.1, MCH 30.7, MCHC 34.4, RDW 12.3, RDW Differential 39.8, Plt Count 153, MPV 8.8 02/14/19 04:30: Sodium 142, Potassium 3.7, Chloride 108 H, Carbon Dioxide 27.0, Anion Gap 7, BUN 10, Creatinine 1.08, Est GFR (MDRD) Af Amer 87, Est GFR (MDRD) Non-Af 72, BUN/Creatinine Ratio 9.3 L, Glucose 111 H, Calcium 8.5 Rhythm: EKG: ECHO: Stress Test: Cardiac Cath: PCI: CT Surgery: Holter monitor: EPS: PPM: CXR: Chest CT Scan: Medical Necessity - Tobacco Use Smoking Status: Former smoker Assessment/Plan 1. Coronary artery disease: Patient status post complex angioplasty and drug-eluting stenting to his distal left circumflex with balloon angioplasty only of a obtuse marginal branch. His LAD and diagonal stents were widely patent. His previous RCA stents were also widely patent. Patient's left groin is clean/dry/intact, and he will proceed with cardiac rehab in 2 weeks time. Patient continue baby aspirin and Plavix and must do so for period of at least one years time from this most recent angioplasty. He is unable to stop his dual antiplatelet therapy despite his need for colon cancer work-up. 2. Hyperlipidemia: Continue antilipid based therapy. He will repeat his lipid profile at the conclusion of cardiac rehab. 3. 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 Code Visit Inpatient E&M: 78493 Subs Hosp L2
--- NOTE | 2019-02-14 09:15 | PCM.DC.CCA ---
Discharge Diet: Low fat/ Low Cholesterol Discharge Activity: Return to Normal Activity May shower in (days): 1 Lifting Restrictions: 10 pounds and also avoid any pushing or pulling for 3 days after your test. Call your doctor if your incision/area has: Continuous Slow Oozing, Sudden Increased Bleeding, Increased Pain/ Swelling, Increased Redness, Foul Smelling Discharge, Swelling at the incision site Call your doctor if you observe: Fever of 101 or Higher, Shortness of breath, Chest pain Remove Dressing in (days):: 1 Additional Dressing/Incision Instructions:: Keep the dressing (bandage) on until the next morning. You may then shower, but do not take a tub bath for 5 days after your test. It is normal to have some tenderness and discomfort at the puncture site. Sometimes bruising also occurs. However, if pain, numbness, or coldness occurs below the puncture site (in your leg, toes, arms or fingers) call your doctor at once. You may have a small, marble sized knot at the puncture site. This is normal. Do not rub it. It will go away in 4-6 weeks. Bleeding can occur from the area where the puncture was done. Blood may spurt or drip from the site. If blood spurts, apply pressure right away to stop bleeding and call 911. Although rare, bleeding into the tissue (hematoma) can also occur. If this happens, a large, firm area goose egg under the skin will appear. If any of these occur, lie down as flat as you can and have someone apply firm pressure to the cath site with a gauze pad or a clean washcloth for 10-15 minutes. Call 911 or go to the Emergency Department. Additional Instructions: You can not stop you plavix for at least one year When I see you n the office we can talk further about cardiac rehab Allergies/Adverse Reactions: Allergies olanzapine [From Zyprexa] Adverse Reaction (Severe, Verified 02/12/19 10:12) tremors, muscle twitching oxaliplatin Adverse Reaction (Severe, Verified 02/12/19 10:12) neuropathy omeprazole [From Prilosec] Adverse Reaction (Verified 02/12/19 10:12) lowers WBCs Medications to take at Discharge Rabeprazole Sodium [Aciphex] 20 mg PO BID 05/13/17 Tamsulosin HCl [Flomax] 0.4 mg PO QHS 05/13/17 Glucosamine/MSM/Chondroitin A [Glucosamine Chondroit MSM Tab] 1 ea PO DAILY 03/14/18 Aspirin E.C. [Ecotrin] 81 mg PO DAILY@0800 03/19/18 triamcinolone acetonide 55 mcg nasal spray aerosol 2 spray INTRANASAL QHS 04/18/18 atorvastatin 80 mg tablet 80 mg PO QHS #90 tab 06/05/18 isosorbide mononitrate ER 30 mg tablet,extended release 24 hr 30 mg PO DAILY #90 tab 06/05/18 lisinopril 20 mg tablet 20 mg PO DAILY #90 tab 06/05/18 metoprolol tartrate 25 mg tablet 25 mg PO BID #180 tab 06/05/18 clopidogrel 75 mg tablet 75 mg PO DAILY #90 tab 02/06/19 polyethylene glycol 3350 17 gram oral powder packet 17 g PO DAILY PRN ea 02/06/19 psyllium husk (aspartame) 3.4 gram oral powder packet 1 packet PO DAILY PRN 02/06/19 Nitroglycerin (INPATIENT USE) [Nitrostat] 0.4 mg SUBLINGUAL Q5M PRN tab.subl 02/14/19 Primary Care Physician: Xavier El DO [Primary Care Provider] - Please follow up with your Primary Care Physician in: 2-4 weeks Test Results: Test results from this visit will be discussed in further detail at your follow-up appointment, if applicable. Please Follow Up With: Ramya Isaac PA When: 03/06 230pm Cardiac Rehabilitation Info Cardiac Rehabilitation Program Information: Cardiac Rehabilitation is important for patients like you who are recovering from a heart problem. Cardiac rehabilitation programs are recognized as integral to the continued care of the patient with coronary heart disease. The cardiac rehabilitation program is designed to optimize a patient's physical, psychological, and social functioning. Health pharmacy customer care specialist work in cardiac rehabilitation programs and assist you with getting the treatments you need to get stronger and healthier - like exercise, healthy eating habits, and medications. Cardiac rehabilitation has been show to help people with heart problems live longer and have better life enjoyment than people who do not go to cardiac rehabilitation. Please contact the Cardiac Rehabilitation Program at [facility] at in two weeks if you have not heard from them.
--- NOTE | 2019-02-14 09:18 | DCINST_ITS ---
Discharge Diet: Low fat/ Low Cholesterol Discharge Activity: Return to Normal Activity May shower in (days): 1 Lifting Restrictions: 10 pounds and also avoid any pushing or pulling for 3 days after your test. Call your doctor if your incision/area has: Continuous Slow Oozing, Sudden Increased Bleeding, Increased Pain/ Swelling, Increased Redness, Foul Smelling Discharge, Swelling at the incision site Call your doctor if you observe: Fever of 101 or Higher, Shortness of breath, Chest pain Remove Dressing in (days):: 1 Additional Dressing/Incision Instructions:: Keep the dressing (bandage) on until the next morning. You may then shower, but do not take a tub bath for 5 days after your test. It is normal to have some tenderness and discomfort at the puncture site. Sometimes bruising also occurs. However, if pain, numbness, or coldness occurs below the puncture site (in your leg, toes, arms or fingers) call your doctor at once. You may have a small, marble sized knot at the puncture site. This is normal. Do not rub it. It will go away in 4-6 weeks. Bleeding can occur from the area where the puncture was done. Blood may spurt or drip from the site. If blood spurts, apply pressure right away to stop bleeding and call 911. Although rare, bleeding into the tissue (hematoma) can also occur. If this happens, a large, firm area goose egg under the skin will appear. If any of these occur, lie down as flat as you can and have someone apply firm pressure to the cath site with a gauze pad or a clean washcloth for 10-15 minutes. Call 911 or go to the Emergency Department. Additional Instructions: You can not stop you plavix for at least one year When I see you n the office we can talk further about cardiac rehab Allergies/Adverse Reactions: Allergies olanzapine [From Zyprexa] Adverse Reaction (Severe, Verified 02/12/19 10:12) tremors, muscle twitching oxaliplatin Adverse Reaction (Severe, Verified 02/12/19 10:12) neuropathy omeprazole [From Prilosec] Adverse Reaction (Verified 02/12/19 10:12) lowers WBCs Medications to take at Discharge Rabeprazole Sodium [Aciphex] 20 mg PO BID 05/13/17 Tamsulosin HCl [Flomax] 0.4 mg PO QHS 05/13/17 Glucosamine/MSM/Chondroitin A [Glucosamine Chondroit MSM Tab] 1 ea PO DAILY 03/14/18 Aspirin E.C. [Ecotrin] 81 mg PO DAILY@0800 03/19/18 triamcinolone acetonide 55 mcg nasal spray aerosol 2 spray INTRANASAL QHS 04/18/18 atorvastatin 80 mg tablet 80 mg PO QHS #90 tab 06/05/18 isosorbide mononitrate ER 30 mg tablet,extended release 24 hr 30 mg PO DAILY #90 tab 06/05/18 lisinopril 20 mg tablet 20 mg PO DAILY #90 tab 06/05/18 metoprolol tartrate 25 mg tablet 25 mg PO BID #180 tab 06/05/18 clopidogrel 75 mg tablet 75 mg PO DAILY #90 tab 02/06/19 polyethylene glycol 3350 17 gram oral powder packet 17 g PO DAILY PRN ea 02/06/19 psyllium husk (aspartame) 3.4 gram oral powder packet 1 packet PO DAILY PRN 02/06/19 Nitroglycerin (INPATIENT USE) [Nitrostat] 0.4 mg SUBLINGUAL Q5M PRN tab.subl 02/14/19 Primary Care Physician: Xavier El DO [Primary Care Provider] - Please follow up with your Primary Care Physician in: 2-4 weeks Test Results: Test results from this visit will be discussed in further detail at your follow- up appointment, if applicable. Please Follow Up With: Ramya Isaac PA When: 03/06 230pm Cardiac Rehabilitation Info Cardiac Rehabilitation Program Information: Cardiac Rehabilitation is important for patients like you who are recovering from a heart problem. Cardiac rehabilitation programs are recognized as integral to the continued care of the patient with coronary heart disease. The cardiac rehabilitation program is designed to optimize a patient's physical, psychological, and social functioning. Health director critical care work in cardiac rehabilitation programs and assist you with getting the treatments you need to get stronger and healthier - like exercise, healthy eating habits, and medications. Cardiac rehabilitation has been show to help people with heart problems live longer and have better life enjoyment than people who do not go to cardiac rehabilitation. Please contact the Cardiac Rehabilitation Program at [facility] at in two weeks if you have not heard from them.
[2019-02-14] MEDS: Aspirin E.C. 81 MG Tablet PO (09:21)
[2019-02-14] MEDS: Clopidogrel Bisulfate 75 MG Tablet PO (09:21)
[2019-02-14] MEDS: Metoprolol Tartrate 25 MG Tablet PO (09:22)
[2019-02-14] MEDS: Pantoprazole Sodium 20 MG Tablet PO (09:22)
[2019-02-14] MEDS: Isosorbide Mononitrate 30 MG Tablet PO (09:22)
[2019-02-14] MEDS: Lisinopril 20 MG Tablet PO (09:22)
--- NOTE | 2019-02-14 10:00 | EKG12_ITS ---
Test Reason : AM EKG Blood Pressure : / mmHG Vent. Rate : 051 BPM Atrial Rate : 065 BPM P-R Int : 174 ms QRS Dur : 102 ms QT Int : 450 ms P-R-T Axes : 055 032 023 degrees QTc Int : 414 ms Normal sinus rhythm Normal ECG Confirmed by KIRSTIN LUKE, RYLIE ([id number]), newspaper photo editor ALMA DELIA MORA ([id number]) on 02/18/2019 3:07:23 PM Referred By: Biju Combs Confirmed By:RYLIE FULTON MD
== END 2019-02-14 09:45 | disposition home or self-care (01) ==
LOC: CLSP 10:03 → ICU 02-14 08:30
PROVIDERS: Family Provider Preventive Medicine Occupational Medicine; PCP Preventive Medicine Occupational Medicine; Referring Provider Internal Medicine Cardiovascular Disease; Visit Provider Internal Medicine Cardiovascular Disease
DX: I25.10 Atherosclerotic heart disease of native coronary artery without angina pectoris (principal); I10 Essential (primary) hypertension; E78.2 Mixed hyperlipidemia; N40.0 Benign prostatic hyperplasia without lower urinary tract symptoms; K21.9 Gastro-esophageal reflux disease without esophagitis; I25.2 Old myocardial infarction; Z79.82 Long term (current) use of aspirin; Z79.02 Long term (current) use of antithrombotics/antiplatelets; Z79.899 Other long term (current) drug therapy; Z87.891 Personal history of nicotine dependence; Z95.5 Presence of coronary angioplasty implant and graft
CPT/HCPCS: 80048; 85027; 85347; 92921; 92928; 93005; J7030; J7040; Q9967; C1725; C1769; C1874; C1887; C1894; C9600

== ENCOUNTER → 2019-03-04 06:45 | Outpatient (CLI) | payer MEDICARE, SELFPAY ==
[2019-01-23 14:14] VITALS: BMI 34.3
[2019-02-13 12:39] VITALS: BMI 33.0
--- NOTE | 2019-03-04 06:47 | CT_ITS ---
STUDY: CT ABDOMEN AND PELVIS WITH CONTRAST REASON FOR EXAM: Male, 69 years old. History of a cecal carcinoma. Follow-up examination. RADIATION DOSAGE (If Supplied By Facility): CTDIvol = ( 22.48 ) mGy, DLP = ( 2386.14 ) mGycm TECHNIQUE: Transaxial images were obtained from the dome of the diaphragm to the symphysis pubis with oral contrast. 100cc IV/Oral Isovue 300 was administered. Sagittal and coronal images were reconstructed. Individualized dose optimization techniques were used for this CT. COMPARISON: Comparison is made with prior examination dated March 14, 2018. FINDINGS: Mild increased markings at the lung bases suggesting mild scarring. Stable 4.1 mm noncalcified nodule in the posterior medial segment of the right lower lobe as seen on axial image #4. The visualized portions of the heart are within normal limits. 1 cm cyst in the anterior superior aspect of the right lobe of the liver. This is unchanged. There are multiple small gallstones. Normal spleen. Normal pancreas. Normal bilateral adrenal glands. Normal right kidney. Normal left kidney. There is a small hiatal hernia. Normal small intestine. A moderate amount of fecal material is seen in the colon. There is scattered atherosclerotic calcification of the abdominal aorta, without a demonstrated aneurysm. Normal inferior vena cava. Normal retroperitoneum. Normal urinary bladder. There is enlargement of the prostate gland. It measures 4.8 cm x 5.3 cm. Normal abdominal wall. There are diffuse degenerative changes of the visualized lumbar spine. CT/Abdomen/Pelvis WITH Contrast IMPRESSION: Moderate amount of fecal material is seen in the colon. Stable small cyst in the right lobe of the liver. Multiple small gallstones. Electronically Signed: Dylan Abdalla, at 11:25 EDT , Service support ,
--- NOTE | 2019-03-04 06:47 | CT_ITS ---
STUDY: CT CHEST WITH CONTRAST REASON FOR EXAM: Male, 69 years old. History of a malignant neoplasm of the cecum. RADIATION DOSAGE (If Supplied By Facility): CTDIvol = ( 22.48 ) mGy, DLP = ( 2386.14 ) mGycm TECHNIQUE: Transaxial imaging was performed following intravenous administration of 100cc IV Isovue 300. Multiplanar coronal and sagittal images were reformatted. Individualized dose optimization techniques were used for this CT. COMPARISON: None. FINDINGS: Minimal increased linear markings at the lung bases suggestive of the linear scarring. There is no demonstrated pleural abnormality. Normal heart and pericardium. Normal mediastinum. Normal hilar regions. Normal enhanced pulmonary arteries. Normal aorta arch and descending thoracic aorta. There are multi-level degenerative changes of the thoracic spine. 1.3 cm cyst in the anterior aspect of the right lobe of the liver. Small hiatal hernia. Small gallstones. CT/Chest WITH Contrast IMPRESSION: Minimal increased markings at the lung bases suggestive scarring. Electronically Signed: Dylan Abdalla, at 13:37 EDT , Service support ,
== END ==
PROVIDERS: Family Provider Preventive Medicine Occupational Medicine; PCP Preventive Medicine Occupational Medicine; Referring Provider Nurse Practitioner; Visit Provider Nurse Practitioner
DX: C18.0 Malignant neoplasm of cecum (principal); C18.2 Malignant neoplasm of ascending colon; C77.2 Secondary and unspecified malignant neoplasm of intra-abdominal lymph nodes
CPT/HCPCS: 71260; 74177; Q9967

== ENCOUNTER 2019-03-06 05:33 | Day surgery (SDC) | payer MEDICARE, SELFPAY ==
[2019-01-23 14:14] VITALS: BMI 34.3
--- NOTE | 2019-02-06 10:52 | HP_ITS ---
HPI HPI History of Present Illness Surgical H&P: Yes Details: This is a 69-year-old white male who presents today for outpatient cardiovascular follow-up. As you recall he has a history of CAD status post RCA PCI superimposed upon hyperlipidemia and hypertension. He is now recuperating from a recent LAD PCI/JAYLIN and a right femoral artery pseudoaneurysm requiring thrombin injection closure. He is scheduled for an upcoming staged procedure to the LCx/OM distribution. He states he remains as an outpatient. He continues with shortness of breath/dyspnea with exertion. He has had no concerning chest discomfort that he is aware of. There is been no orthopnea or PND or peripheral pitting edema. He has no near syncope or syncope. He has had general surgery/vascular surgery follow-up for his right femoral artery pseudoaneurysm. He was reported is healing well with no recommendations for additional diagnostic studies or therapeutic intervention. 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 [Ecotrin] 81 mg PO DAILY@0800 03/19/18 [History Confirmed 02/06/19] triamcinolone acetonide 55 mcg nasal spray aerosol 2 spray INTRANASAL QHS 04/18/18 [History Confirmed 02/06/19] atorvastatin 80 mg tablet 80 mg PO QHS #90 tab 06/05/18 [Rx Confirmed 02/06/19] isosorbide mononitrate ER 30 mg tablet,extended release 24 hr 30 mg PO DAILY #90 tab 06/05/18 [Rx Confirmed 02/06/19] lisinopril 20 mg tablet 20 mg PO DAILY #90 tab 06/05/18 [Rx Confirmed 02/06/19] metoprolol tartrate 25 mg tablet 25 mg PO BID #180 tab 06/05/18 [Rx Confirmed 02/06/19] clopidogrel 75 mg tablet 75 mg PO DAILY #90 tab 02/06/19 [Rx Confirmed 02/06/19] polyethylene glycol 3350 17 gram oral powder packet 17 g PO DAILY PRN ea 02/06/19 [History Confirmed 02/06/19] psyllium husk (aspartame) 3.4 gram oral powder packet 1 packet PO DAILY PRN 02/06/19 [History Confirmed 02/06/19] PFSH Medical History Essential hypertension (Chronic) Hyperlipemia, mixed (Chronic) Atherosclerotic heart disease of [place] coronary artery without angina pectoris (Chronic) Chest pain (Acute) NSTEMI (non-ST elevated myocardial infarction) (Chronic) Peptic ulcer disease (Chronic) BPH (benign prostatic hyperplasia) (Chronic) Cancer of transverse colon (Chronic) GERD (gastroesophageal reflux disease) (Chronic) Hyperglycemia (Chronic) HTN (hypertension) (Inactive) Surgical History Presence of stent in coronary artery (Chronic ~01/23/19) H/O removal of cyst (Chronic) History of left heart catheterization (Chronic) History of rectal surgery (Chronic) Kidney stone removal (Chronic) Postsurgical percutaneous transluminal coronary angioplasty (PTCA) status (Chronic ~05/15/17) Right eye surgery (Chronic) S/P right hemicolectomy (Resolved) History of percutaneous coronary intervention (Inactive) Family History Father CAD (coronary artery disease) Mother CAD (coronary artery disease) Social History Smoking Status: Former smoker ROS Const Const: Negative for fatigue, weakness, frequent falls, excessive sweating, weight gain or weight loss Eyes Eyes: Negative for transient loss of vision, blurry vision or change in vision ENT ENT: Negative for dizziness or balance problems Cardio Chest Pain: No Palpitations: No Edema: None Muscle aches with walking: None Resp Respiratory: Positive for SOB with activity (baseline, occasional); negative for SOB at rest GI GI: Negative vomiting or vomiting blood/hematemesis : Negative for hematuria Musc Musc: Negative for muscle aches/ myalgia, muscle weakness, joint pain or balance problems Skin Skin: Negative non-healing lesions or rash Neuro Neuro: Negative for dizziness, lightheadedness, orthostatic symptoms, frequent falls, weakness or blurry vision [place] Hematologic/Lymphatic: Negative for easy bleeding Endo Endo: Negative for fatigue or excessive sweating Psych Psych: Negative for anxiety or depression Allergy Allergy/Immunology: Negative for hives, Negative for rash Cardiology Exam Const Appearance: cooperative, healthy appearing, comfortable, no acute distress, well developed and well groomed Nutritional Appearance: overweight Orientation: alert, awake and oriented x3 Head Head: normal to inspection, normocephalic and atraumatic Ears: hearing grossly normal bilaterally Nose: external nose normal Face and Sinus: face symmetric Mouth: oral mucosae normal Teeth and gingiva: fair dentition Eyes Eyelids: eyelids normal Conjunctivae: conjunctivae normal Pupils: PERRL EOM: EOM intact bilaterally Neck Neck: normal visual inspection and full ROM Carotids: normal carotid upstroke Chest Chest inspection: normal inspection of the chest, symmetric chest movement and normal respiratory effort Auscultation: Bilateral: Clear to Auscultation Cardio Palpation: normal PMI Rhythm: regular rhythm Heart sounds: S1 normal and S2 normal GI GI: normal to inspection, soft and bowel sounds present Neuro General: alert, awake, oriented x3, gait normal, moves all extremities, no focal sensory deficit and no focal motor deficits Skin Skin: no rashes or lesions noted Extremities Pulses: Normal: Right Radial Pulse, Left Radial Pulse Psych Psychological: normal affect Assessment & Plan 1. Atherosclerosis of [place] coronary artery of [place] heart without angina pectoris I25.10 PTCA/JAYLIN of Prox RCA 05/15/17 Plan At the present time he appears to be doing well overall. He continues with shortness of breath/dyspnea on exertion. There is concerned that this can be an angina pectoris equivalent for him. Thus he will continue medical management. He will continue with plans for upcoming staged procedure/PCI to his LCx/OM system under the direction of Dr. Combs. In the interim he will continue medical therapy. 2. Presence of stent in coronary artery Z95.5 PTCA/JAYLIN of Prox RCA 05/15/17; PTCA/JAYLIN to prox Diag #1 and PTCA/JAYLIN to mida LAD 01/23/19 Plan Again he has a history of previous PCI to the RCA. He is status post a more recent PCI to the LAD/diagonal branch system as noted above. He will continue medical management and plans for upcoming staged PCI to the LCx/OM system. 3. Pseudoaneurysm following procedure I97.89; I72.9 Plan He did have a right femoral artery pseudoaneurysm. He required thrombin injection closure. He appears to be healing well at this time. There are no immediate plans for additional diagnostic studies or therapeutic intervention. 4. Hyperlipemia, mixed E78.2 Plan He will continue risk factor modification medical management. 5. Essential hypertension I10 Plan His blood pressure appears to be recently well controlled. He will continue medical therapy. 6. Dyspnea on exertion R06.09 Plan Again his dyspnea on exertion is concerning for angina pectoris equivalent. Thus he will continue medical therapy. He will proceed with his cardiovascular evaluation as noted above. Plan Detail Other Medications Changed: From: clopidogrel For Cardiac Cath 75 mg PO DAILY 90 tabs 3RF To: clopidogrel 75 mg PO DAILY 90 tabs 3RF Additional Comments Thank you for allowing me to participate in the care of your patient. Please don't hesitate to call if any issues arise. This note was generated using a voice recognition system and there may be incorrect words, spelling or punctuation that were not noted when reviewing the office note prior to saving. Follow Up 5 Months (as scheduled ) Coding Level of Care Code Off vis,est,level 3 Diagnoses Atherosclerosis of [place] coronary artery of [place] heart without angina pectoris I25.10 ??[place] vs. transplanted heart: [place] heart Presence of stent in coronary artery Z95.5 Pseudoaneurysm following procedure I97.89; I72.9 Hyperlipemia, mixed E78.2 Essential hypertension I10 Dyspnea on exertion R06.09 Coding Level of Care Code Off vis,est,level 3 Diagnoses Atherosclerosis of [place] coronary artery of [place] heart without angina pectoris I25.10 ??[place] vs. transplanted heart: [place] heart Presence of stent in coronary artery Z95.5 Pseudoaneurysm following procedure I97.89; I72.9 Hyperlipemia, mixed E78.2 Essential hypertension I10 Dyspnea on exertion R06.09 Supplemental Info Supplemental Information He had a transthoracic echocardiogram performed on 05/13/2017 Interpretation Summary The study was technically difficult. Contrast injection was performed. Segmental dysfunction with preserved ejection fraction (see wall motion). The estimated ejection fraction is 60 %. Trivial mitral valve insufficiency. Trivial tricuspid valve insufficiency. Mild focal aortic valve calcification. Unable to estimate RV systolic pressure/pulmonary artery pressure due to technically difficult study. Transmitral diastolic flow velocities suggest diastolic dysfunction (pseudonormal pattern). He had a treadmill stress test performed on 05/30/2017. 1. Technically adequate (percent predicted maximal heart rate greater than 85%) exercise tolerance test 2. The peak exercise ECG demonstrated somatic/motion artifact with beat to beat nonspecific ST segment variability with resolution towards baseline beginning by 1 minute in recovery with subsequent notation of approximately 0.5 - 1.[address] segment depression in leads I, II, III, aVF, and V4 through V6 during recovery (at approximately 5 minutes into recovery) with gradual resolution towards baseline at approximately 10 minutes into recovery. 3. Rare PVC during exercise and recovery He had a diagnostic cardiac catheterization performed at [facility] on 05/15/2017. DOMINANCE: Right Dominant LEFT HEART ASSESSMENT LV evaluation: not performed: please see echocardiogram report LEFT MAIN: Angiographically normal LEFT ANTERIOR DESCENDING ARTERY: PROX LAD: Eccentric: 25 % Stenosis MID LAD: Eccentric: 25 % Stenosis DIAGONAL 2: Proximal - Long: Diffuse: 85 % Stenosis (small caliber bifurcating vassel) DIAGONAL 3: Proximal - is occluded CIRCUMFLEX ARTERY: MID CIRC: Eccentric: 10-25 % Stenosis OM 2: Proximal - 50-75 % Stenosis (small caliber vessel) RIGHT CORONARY ARTERY: Mild luminal irregularities PROX RCA: Eccentric: 99 % Stenosis COLLATERAL FLOW: Collateral flow from Left to Right Cardiac catheterization: 01-23-19 CORONARY ANGIOGRAPHY DOMINANCE: Right Dominant LEFT HEART ASSESSMENT Left Ventricular Ejection Fraction: by LV Gram 65 % Normal LV wall motion Elevated Left Ventricular End Diastolic Pressure LVEDP: 20 mmHg LEFT MAIN: Angiographically normal LEFT ANTERIOR DESCENDING ARTERY: PROX LAD: Eccentric: 25 % Stenosis MID LAD: Eccentric: 50 % Stenosis DIAGONAL 2: Proximal - Long: Diffuse: 85 % Stenosis DIAGONAL 3: Proximal - is occluded CIRCUMFLEX ARTERY: MID CIRC: 10-25 % Stenosis OM 2: Proximal - 75 % Stenosis RIGHT CORONARY ARTERY: Mild luminal irregularities PROX RCA: Previously placed stent is patent COLLATERAL FLOW: Collateral flow from Left to Right Collateral flow from Right to Left VALVE FINDINGS: Normal Aortic Valve function Normal Mitral Valve function AORTIC ROOT: Angiographically normal He underwent PCI at [facility] on 05/15/2017. This included a JAYLIN to the RCA PCI: 01-23-19 CONCLUSIONS Successful PTCA/JAYLIN proximal DIAG#1 with a 2.25 x 20 Promus Synergy; 85%-->0%, no dissection or encroachment into LAD. Successful PTCA/JAYLIN mid LAD with a 4.0 x 28 Promus Synergy, post dilated throughout with a 4.0 x 12 NC Balloon; 75%-->0%, no dissection. FFR eval of LAD was 0.78 pre stent; 0.93 post stent. RECOMMENDATIONS Highly recommend quitting all tobacco products Follow up with primary air intelligence officer Risk factor modification ASA indefinitely Plavix for at least 12 months Routine post interventional care Refer for Outpatient Cardiac Rehab Manual sheath removal per protocol Follow up with Dr. Grigsby Elective PCI of LCX/OM in 3 weeks. Successful Mynx closure of RFA. Labs LDL Cholesterol 53 mg/dL (0-130) 01/24/19 HDL Cholesterol 35 mg/dL (40-) L 01/24/19 Triglycerides 197 mg/dL (-199) 01/24/19 VLDL Cholesterol 39 mg/dL (5-40) 01/24/19 Diagnostics Electrocardiogram 01/25/19 Echocardiogram 03/16/18 Stress Test Nuclear Medicine 01/15/19 Stress Test 01/15/19 Cardiac Catheterization 01/23/19 Chest X-Ray 01/17/19 02/06/19 1052 <Electronically signed by Esteban ross MD> Date _ Esteban Grigsby MD
[2019-02-13 12:39] VITALS: BMI 33.0
[2019-03-04 11:27] VITALS: BMI 33.5
--- NOTE | 2019-03-05 19:24 | HP.PCM_ITS ---
History and Physical Date of Admission: 03/06/19 HISTORY AND PHYSICAL ? Barry Hudson Jorgensen 1950 ? REFERRING PHYSICIAN: ??Xavier El, DO ? CHIEF COMPLAINT: ??discuss colonoscopy ? HPI: The patient is a 69 year old male referred for?follow-up endoscopy. ? ?The patient presented to [facility] last week with rectal bleeding. ?He was admitted to the medicine service. ?A CT scan of the abdomen and pelvis was obtained which demonstrated no specific abnormalities in the liver. ?There was felt to be thickening in the mid transverse colon. ?My partner, Lorenza Cueva was consulted. ?She performed upper and lower endoscopy on March 15, 2018. ?Upper endoscopy demonstrated very mild antritis and benign gastric fundic polyps. ?Colonoscopy was performed and at the mid transverse colon a fungating mass was identified. ?Multiple biopsies were obtained. ?Meseret ink was injected for identification and a clip was placed to better localize this abnormality. ? Postprocedure KUB was obtained which demonstrated the clip just to the right of the midline vertebral structures. ? Pathology returned this morning. ?Pathology demonstrated: ? ? MICROSCOPIC DIAGNOSIS A. ?Antral biopsy: ?Mild gastritis. B. ?Gastric polyp, biopsy: ?Fundic gland polyp. C. ?Transverse colon mass, biopsy: ?Invasive moderately differentiated adenocarcinoma. See comment. ? The patient was seen in the hospital by his service assistant, Dr. Esteban Grigsby. ?Dr. Grigsby felt that overall, the patient was a reasonable risk for surgical intervention locally. ?He was comfortable holding both his aspirin and his plavix. ? ? ? I performed a laparoscopic extended right hemicolectomy on March 20, 2018. ?The patient did well and was discharged home on March 23. ?He did note some dizziness the day after discharge, but we held his beta mandeep and he has been doing well since. ? The pathology demonstrated: ? MICROSCOPIC DIAGNOSIS A. ?Right colon, hemicolectomy: ?Invasive adenocarcinoma. ?See complete cancer checklist below. B. ?Soft tissue of umbilical region, excision: ?Fragment of fibrofatty tissue with mild fibrosis consistent with hernia sac. ?No evidence of malignancy. ? AM:rg ?03/26/18 ? COMMENT COLON CANCER SUMMARY: ??Specimen ? right colon ??Procedure ? right hemicolectomy ??Tumor site ? right colon ??Tumor size ? 2.5 x 2 x 0.5 cm ??Macroscopic tumor perforation ? not identified ??Histologic type - adenocarcinoma ??Histologic grade ? low-grade (moderately differentiated) ??Microscopic tumor extension ? tumor invades through the muscularis propria to the subserosal adipose tissue. ?Tumor is located 3 cm from its closest (distal) mucosal margin of excision. ??Margins: ?Proximal margin ? uninvolved by invasive carcinoma. ?Distal margin - uninvolved by invasive carcinoma. ?Circumferential or mesenteric margin - uninvolved by invasive carcinoma. ??Treatment effect - unknown ??Lymph-Vascular invasion ? not identified. ??Perineural invasion ? not identified ??Tumor deposits - not identified ??Lymph nodes: ?Number of lymph nodes examined - 39 ?Number of lymph nodes involved - 1 ??Additional pathologic findings ? largest polyp close to ileocecal valve with focal high-grade dysplasia. ?Two smaller polyps ? tubular adenoma ?Appendix ? fibrous obliteration of distal appendix and focal hyperplastic mucosal change. ??Ancillary studies: ?Microsatellite instability - Negative (no loss of mismatch protein; no microsatellite instability detected). ?Immunohistochemistry studies for mismatch repair proteins: ?MLH1 - Intact nuclear positivity, tumor cells ?MSH2 - Intact nuclear positivity, tumor cells ?MSH6 - Intact nuclear positivity, tumor cells ?PMS2 - Intact nuclear positivity, tumor cells ? ??PATHOLOGIC STAGE: ?pT3 ?N1a ?Mx ? ? He returns now with no complaints for follow-up colonoscopy one year postoperatively. ? The patient had an episode of anginal type chest pain 2 months previously. ?He underwent a stress test in January 2019 then went for cardiac catheterization and had 2 stents placed in his RCA. ?He had no true PA at that time. ?He has been maintained on his Plavix. ?Dr. Combs is his service assistant. ? The patient is being seen by me today at the request of Dr.?Xavier El, DO?for my opinion and advice regarding high risk screening colonoscopy.? ? ? PAST?MEDICAL?HISTORY PAST MEDICAL HISTORY Diagnosis Date ? BPH (benign prostatic hyperplasia) 09/02/2010 ? Colon cancer (HCC) 03/2018 ? Esophageal reflux 02/02/2008 ? Heart attack (HCC) 04/2017 ? Hernia of other specified sites of abdominal cavity without mention of obstruction or gangrene ? ? rectal ? Renal calculus ? ? Vasomotor rhinitis 09/02/2010 ? ? PAST?SURGICAL?HISTORY PAST SURGICAL HISTORY Procedure Laterality Date ? LAPAROSCOPIC HEMICOLECTOMY ? 03/20/2018 ? lap extended right hemicolectomy WC ? PAST SURGICAL HISTORY OF Right 1979 ? detatched retina ? PAST SURGICAL HISTORY OF ? ? ? removal of kidney stone ? PAST SURGICAL HISTORY OF ? 1979 ? rectal surgery? ? PRQ CARDIAC STENT W/ANGIO 1 VSL ? 04/2017 ? ? CURRENT?MEDICATIONS ? Current Outpatient Medications: peg 3350-Electrolytes (GOLYTELY) 236-22.74-6.74 -5.86 gram suspension Take 4,000 mL by mouth one time only for 1 dose. clopidogrel (PLAVIX) 75 mg tablet Take 75 mg by mouth once daily. psyllium husk (METAMUCIL ORAL) Take 2 Tablespoonsful by mouth once daily as needed. glucosamine/msm/chondroit sulf (GLUCOSAMINE 6HNM-TIS-[id number] ORAL) Take 1 tablet by mouth once daily. triamcinolone acetonide (NASACORT AQ) 55 mcg nasal inhaler Use 2 Sprays in the nose once daily. aspirin, enteric coated (ECOTRIN LOW STRENGTH) 81 mg EC tablet Take 81 mg by mouth once daily. atorvastatin (LIPITOR) 80 mg tablet Take 80 mg by mouth once daily. isosorbide mononitrate ER (IMDUR) 30 mg 24 hr tablet Take 30 mg by mouth once daily. lisinopril (ZESTRIL) 20 mg tablet Take 20 mg by mouth once daily. metoprolol tartrate, short acting, (LOPRESSOR) 25 mg tablet Take 25 mg by mouth twice daily. polyethylene glycol 3350 (MIRALAX ORAL) Take 1 scoop by mouth once daily. Prn tamsulosin ER (FLOMAX) 0.4 mg cp24 Take 1 capsule by mouth daily at bedtime. RABEprazole (ACIPHEX) 20 mg tablet Take 1 tablet by mouth once daily. (Patient taking differently: Take 20 mg by mouth twice daily. ) ? No current facility-administered medications for this visit.? ? ALLERGIES:?Oxaliplatin; Prilosec [Omeprazole]; Zyprexa [Olanzapine] ? PERSONAL HISTORY:? SOCIAL?HISTORY Social History ??Socioeconomic History ?Marital status: ?Spouse name: Not on file ?Number of children: Not on file ?Years of education: Not on file ?Highest education level: Not on file ??Social Needs ?Financial resource strain: Not on file ?Food insecurity - worry: Not on file ?Food insecurity - inability: Not on file ?Transportation needs - medical: Not on file ?Transportation needs - non-medical: Not on file ??Occupational History ?Not on file ??Tobacco Use ?Smoking status: Never Smoker ?Smokeless tobacco: Never Used ??Substance and Sexual Activity ?Alcohol use: No ?Drug use: No ?Sexual activity: Not on file ??Other Topics ?Concerns: ?Not on file ??Social History Narrative ?Not on file ? FAMILY HISTORY:? FAMILY?HISTORY w FAMILY HISTORY Problem Relation Age of Onset ? Heart Mother ?ASHD,valve disease ? Ischemic Heart Disease Father 80 ? Hypertension Father ? ? Diabetes Father ? ? Ischemic Heart Disease Sister ? ? None Sister ? ? None Sister ? ? None Sister ? ? REVIEW OF SYMPTOMS: ??The review of systems data was entered by the nurse and reviewed by me ? There are no exam notes on file for this visit. ? ? PHYSICAL EXAMINATION: ? General: ?The patient is 69 year old male, well nourished, well hydrated in no acute distress. ?The patient is oriented to time, place, and person. ? VITALS:?Blood pressure 142/78, pulse 67, temperature 36.7 ?C (98 ?F), temperature source Temporal Artery, resp. rate 16, weight 108.4 kg (239 lb), SpO2 96 %.?Body mass index is 35.04 kg/m?.? ? HEENT: ?Normal cephalic, ataumatic, pupils are equally round, sclera are anicteric, mucous membranes are moist, oropharynx is clear. ?Neck has no masses, asymmetry or lymphadenopathy. ?Thyroid is unremarkable. ? Respiratory: ?Clear to auscultation and percussion. ?Normal respiratory excursion and pattern. ? Cardiac: ?Examination is regular rate and rhythm. ? Abdominal exam: ?Soft, nontender, ?with no palpable masses. ?No hepatosplenomegaly. ?No palpable hernias. ? Rectal exam:?exam deferred ? Extremities: ?no clubbing, cyanosis or edema. ?No adenopathy. ? Other: ? LABORATORY VALUES: As Noted ? RADIOLOGIC STUDIES: ?As Noted ? Assessment ? IMPRESSION:?Personal history of cecal colon cancer need for follow-up endoscopy?-?surveillance ? PLAN: ?I plan to perform lower?endoscopy. ??We discussed the risks and benefits of the planned endoscopy. ?I have informed the patient that complications can occur including failure to complete the endoscopy and perforation. ?The patient had the opportunity to ask questions concerning the planned endoscopy. ?My staff has also explained the procedure to the patient in understandable terms and has given the patient printed material concerning the procedure. ?The patient freely consents to surgery. ? I plan to use golytely bowel preparation for endoscopy ? The patient has medical comorbidities for which I plan to perform the procedure under monitored anesthetic care. ? Diagnoses:?(C18.4) Malignant neoplasm of transverse colon (HCC) ?(primary encounter diagnosis) ? My findings have been communicated to ?via shared medical record. ?This note will be forwarded to Dr. Xavier El, DO. ?? Return to Clinic: The patient is instructed to follow-up with me?1 week post operatively. ? Luciano Ferreira MD
[2019-03-06 05:57] VITALS: BP 152/93; PULSE 57; RESP 16; TEMP 36.6; O2SAT 97; BMI 33.0
--- NOTE | 2019-03-06 06:30 | COLBX_PTH ---
PATIENT: MYRNA CAPPS Jr. LOC: EN U#:[id number] AGE/SX: 69/M ROOM: RE03/06/[address]: Dr. Luciano Ferreira MD : 1950 BED: DIS: 03/06/2019 SPEC #: [id number] RECD: 03/06/19 10:09 STATUS: KEO ALVARO #: [id number] DAYANARA: 03/06/19 06:[address]: Luciano Ferreira DEPT: SURGICAL PATHOLOGY RECD BY: Leonardo Carranza ENTERED: 03/06/19 10:58 SP TYPE: COLON BX OTHR DR: Dr. Xavier El DO Tissues: A - Transverse colon B - Rectum, NOS Procedures: Surgery Specimen Level IV HEADER OPERATION: Colonoscopy (MAC) PRE-OP DIAGNOSIS: Anemia, history colon cancer TISSUE SUBMITTED: A - Distal transverse colon polyp, B - Lower rectum polyp MICROSCOPIC DIAGNOSIS A. Distal transverse colon polyp: Inflammatory polyp with reactive changes. B. Lower rectum polyp: Hyperplastic polyp. CE:claudio 03/07/19 MICROSCOPIC DESCRIPTION Slides are reviewed. GROSS DESCRIPTION A - Received in fixative is one container labeled with the patient's name and designated distal transverse colon polyp. The specimen consists of a single becker-pink polypoid portion of soft tissue measuring 0.3 x 0.2 x 0.1 cm. The specimen is totally submitted in one cassette. B - Received in fixative is one container labeled with the patient's name and designated lower rectal polyp. The specimen consists of a single becker-pink polypoid fragment of soft tissue measuring 0.2 x 0.2 x 0.1 cm. The specimen is totally submitted in one cassette. / CE:claudio 03/06/19 TC:1 CPT: 53448 x2
[2019-03-06 07:00] VITALS: BP 115/69; BP 152/93; PULSE 70; RESP 16; TEMP 36.5; O2SAT 96
--- NOTE | 2019-03-06 07:03 | OP.ENDO_ITS ---
03/06/2019 Xavier El [address] [place] [address] Re : Colonoscopy procedure for Barry Jorgensen Dear Dr. El This procedure was performed on Wednesday, March 06, 2019. My impressions and recommendations are as follows: Impressions : - Patent functional end-to-end ileo-colonic anastomosis, characterized by healthy appearing mucosa. - Two small polyps in the rectum and in the distal transverse colon, removed with a hot snare. Resected and retrieved. - The examination was otherwise normal. - The distal rectum and anal verge are normal on retroflexion view. Recommendations : - Discharge patient to home. - Resume previous diet. - Continue present medications. - Repeat colonoscopy in 3 years for surveillance. - Return to my office in 1 week. My findings are described in the full procedure note, which is enclosed. If I can be of further assistance, please feel free to contact me at Doctor phone number(s): , Work: . Sincerely, Luciano Ferreira MD 03/06/2019 7:02:56 AM This report has been signed electronically.
[2019-03-06 07:05] VITALS: BP 118/61; BP 152/93; PULSE 65; RESP 16; O2SAT 97
[2019-03-06 07:10] VITALS: BP 112/62; BP 152/93; PULSE 58; RESP 16; O2SAT 95
[2019-03-06 07:15] VITALS: BP 104/60; BP 152/93; PULSE 60; RESP 16; TEMP 36.6; O2SAT 95
[2019-03-06 07:29] VITALS: BP 152/93
== END 2019-03-06 07:55 | disposition home or self-care (01) ==
LOC: EN 05:33 → AC 05:34
PROVIDERS: Family Provider Preventive Medicine Occupational Medicine; PCP Preventive Medicine Occupational Medicine; Referring Provider Preventive Medicine Occupational Medicine; Visit Provider Surgery
PROC: 0DJD8ZZ Inspection of Lower Intestinal Tract, Via Natural or Artificial Opening Endoscopic (ICD-10-PCS; CPT 45378; principal; 2019-03-06 06:25)
DX: Z12.11 Encounter for screening for malignant neoplasm of colon (principal); K62.1 Rectal polyp; K63.5 Polyp of colon; K62.5 Hemorrhage of anus and rectum; I25.10 Atherosclerotic heart disease of native coronary artery without angina pectoris; I10 Essential (primary) hypertension; E78.00 Pure hypercholesterolemia, unspecified; N40.0 Benign prostatic hyperplasia without lower urinary tract symptoms; K21.9 Gastro-esophageal reflux disease without esophagitis; Z79.82 Long term (current) use of aspirin; Z79.899 Other long term (current) drug therapy; Z87.442 Personal history of urinary calculi; Z85.038 Personal history of other malignant neoplasm of large intestine; Z95.5 Presence of coronary angioplasty implant and graft
CPT/HCPCS: 45385; 88305; J7120; J2405

== ENCOUNTER → 2019-05-24 09:33 | Outpatient (CLI) | payer MEDICARE, SELFPAY ==
[2019-01-23 14:14] VITALS: BMI 34.3
[2019-05-25 14:10] LABS: Carcinoembryonic Antigen 3.6 ng/mL (0.0-4.7)
== END ==
PROVIDERS: Family Provider Preventive Medicine Occupational Medicine; PCP Preventive Medicine Occupational Medicine; Referring Provider Nurse Practitioner; Visit Provider Nurse Practitioner
DX: C18.0 Malignant neoplasm of cecum (principal); C18.2 Malignant neoplasm of ascending colon; C77.2 Secondary and unspecified malignant neoplasm of intra-abdominal lymph nodes
CPT/HCPCS: 36415; 82378

== ENCOUNTER → 2019-08-22 08:14 | Outpatient (CLI) | payer MEDICARE, SELFPAY ==
[2019-01-23 14:14] VITALS: BMI 34.3
[2019-06-27 08:39] VITALS: BMI 34.5
[2019-08-22 08:54] LABS: Creatinine, Serum 1.26 mg/dL (0.70-1.30); EST Glomerular Filtration Rate 60 mL/min (>60); Est Glom Filt Rate - Afr Amer 73 mL/min (>60)
[2019-08-23 13:37] LABS: Carcinoembryonic Antigen 5.6 ng/mL (0.0-4.7)
== END ==
PROVIDERS: Family Provider Preventive Medicine Occupational Medicine; PCP Preventive Medicine Occupational Medicine; Referring Provider Nurse Practitioner; Visit Provider Nurse Practitioner
DX: C18.0 Malignant neoplasm of cecum (principal); C18.2 Malignant neoplasm of ascending colon; C77.2 Secondary and unspecified malignant neoplasm of intra-abdominal lymph nodes
CPT/HCPCS: 36415; 82378; 82565

== ENCOUNTER → 2019-08-26 08:18 | Outpatient (CLI) | payer MEDICARE, SELFPAY ==
[2019-01-23 14:14] VITALS: BMI 34.3
[2019-06-27 08:39] VITALS: BMI 34.5
--- NOTE | 2019-08-26 08:23 | CT_ITS ---
STUDY: CT ABDOMEN AND PELVIS WITH CONTRAST REASON FOR EXAM: Male, 69 years old. Metastatic colon cancer. Follow-up last chemotherapy October 02, 2018 RADIATION DOSAGE (If Supplied By Facility): CTDIvol = ( 22.82 ) mGy, DLP = ( 2266.77 ) mGycm TECHNIQUE: Transaxial images were obtained from the dome of the diaphragm to the symphysis pubis without oral contrast. Oral and amp;amp; IV Readi-CAT and amp;amp; 100mL Isovue-370 was administered. Sagittal and coronal images were reconstructed. Individualized dose optimization techniques were used for this CT. COMPARISON: March 14, 2018 and March 04, 2019 FINDINGS: There is a stable 4 mm nodule within the right lower lobe The visualized portions of the heart are within normal limits. There is a stable well-circumscribed low-attenuation focus within the dome of the liver that may reflect an underlying cyst or hemangioma. There are gallstones within the gallbladder. Normal spleen. Normal pancreas. Normal bilateral adrenal glands. There is a stable too small to characterize low-attenuation focus within the left kidney. Normal left kidney. Normal visualized stomach. Normal small intestine. The patient status post partial colectomy. There is diffuse atherosclerotic calcification of the abdominal aorta, without a demonstrated aneurysm. Normal inferior vena cava. There are no new pathologically enlarged retroperitoneal lymph nodes including a 1.4 cm in short axis aortocaval lymph node and a 1.5 cm in short axis left para-aortic lymph node. Normal urinary bladder. Normal visualized prostate gland. Normal abdominal wall. There are diffuse degenerative changes of the visualized lumbar spine. CT/Abdomen/Pelvis WITH Contrast IMPRESSION: New pathologically enlarged retroperitoneal lymph nodes concerning for a neoplastic process. Enlarged prostate gland. Atherosclerosis. Cholelithiasis. Electronically Signed: Kendra Mathias MD at 21:23 EST Tel , Service support ,
--- NOTE | 2019-08-26 08:38 | CT_ITS ---
STUDY: CT CHEST WITH CONTRAST REASON FOR EXAM: Male, 69 years old. Metastatic colon cancer. Follow-up last chemotherapy October 02, 2018. RADIATION DOSAGE (If Supplied By Facility): CTDIvol = ( 22.82 ) mGy, DLP = ( 2266.77 ) mGycm TECHNIQUE: Transaxial imaging was performed following intravenous administration of Oral and amp; IV Readi-CAT and amp; 100mL Isovue-370. Individualized dose optimization techniques were used for this CT. COMPARISON: March 04, 2019 FINDINGS: There is a stable 4 mm nodule within the right lower lobe. There are calcifications of the coronary arteries. Normal mediastinum. Normal hilar regions. Normal enhanced pulmonary arteries. Normal aorta arch and descending thoracic aorta. There are multi-level degenerative changes of the thoracic spine. There is a separate dedicated CT report of the abdomen and pelvis. CT/Chest WITH Contrast IMPRESSION: Stable right lower lobe 4 mm nodule. Atherosclerosis. Degenerative changes of the thoracic spine. Electronically Signed: Kendra Mathias MD at 22:06 EST Tel , Service support ,
== END ==
PROVIDERS: Family Provider Preventive Medicine Occupational Medicine; PCP Preventive Medicine Occupational Medicine; Referring Provider Nurse Practitioner; Visit Provider Nurse Practitioner
DX: C18.2 Malignant neoplasm of ascending colon (principal); C18.0 Malignant neoplasm of cecum; C77.2 Secondary and unspecified malignant neoplasm of intra-abdominal lymph nodes
CPT/HCPCS: 71260; 74177; Q9967

== ENCOUNTER → 2019-09-05 08:17 | Outpatient (CLI) | payer MEDICARE, SELFPAY ==
[2019-01-23 14:14] VITALS: BMI 34.3
[2019-06-27 08:39] VITALS: BMI 34.5
[2019-09-05] VITALS (9 sets, daily range): BP systolic 135–186; BP diastolic 79–101; PULSE 57–69; RESP 13–18; TEMP 37.1; O2SAT 93–98; BMI 34.7
--- NOTE | 2019-09-05 | IMM_PTH ---
PATIENT: MYRNA CAPPS Jr. LOC: CT U#:[id number] AGE/SX: 75/M ROOM: RE09/05/[address]: Dr. Esteban Ramos DO : 1950 BED: DIS: SPEC #: [id number] RECD: 09/06/19 12:05 STATUS: KEO REQ #: [id number] DAYANARA: 09/05/19 00:[address]: Esteban Ramos DEPT: IMMUNOHISTOCHEMISTRY RECD BY: Stephanie Moran ENTERED: 09/06/19 12:07 SP TYPE: IMMUNO OTHR DR: DO Xavier Morton DO Tissues: Retroperitoneum, NOS Procedures: RCC (add) NAPSIN A (add) CK20 (add) CK5-6 (add) CK7 (add) CK8 (add) HEP PAR (add) TTF1 (add) Pankeratin (initial) P40 (add) PSAP (add) PHYSICIAN & [address] [address] SPECIMEN INFORMATION: Tissue Source: Retroperitoneal lymph node Clinical Info: Abnormal CT Specimen Number: [id number] CPT code: 48034, 17119 x10 METHODOLOGY: Deparaffinized sections of prefer/formalin-fixed tissue or PAP/DQ stained slides are incubated with monoclonal/polyclonal antibodies/oligonucleotide probes. Localization is made via biotin free immunoperoxidase method. Appropriate controls are performed and reacted as expected. Results on target cell population are indicated in the following table: RESULTS: ANTIBODY / CLONE RESULT AE1-3 (AE1/AE3/PCK26) positive CK7 (OV-TL12/30) negative CK8 (37lebuC87) positive CK20 (KS20.8) positive TTF-1 (8G7G3/1) negative Napsin A (Rabbit Polyclonal) positive HepPar (OCh1E5) negative RCC (PN-15) negative PSAP (PASE/4LJ) negative CK5-6 (D5 & 1684) negative P40 (BC28) negative These tests were developed and their performance characteristics determined by [facility]. They may not have been cleared or approved by the U.S. Food and Drug Administration. The FDA has determined that such clearance or approval is not necessary. The above immunohistochemical/dualISH markers are ordered and reviewed by the Pathologist. INTERPRETATION: Retroperitoneal lymph node, CT-guided biopsy: Metastatic adenocarcinoma consistent with colonic primary. SJ:claudio 09/06/19
--- NOTE | 2019-09-05 08:29 | CT_ITS ---
PROCEDURE: CT GUIDED left retroperitoneal lymph node biopsy. DATE: September 05, 2019. INDICATION: Male, 69 years old. Small retroperitoneal lymphadenopathy. PHYSICIAN: Dylan Abdalla M.D. RADIATION DOSAGE (If Supplied By Facility): CTDIvol = ( 21 ) mGy, DLP = ( 522.15 ) mGycm. Individualized dose optimization techniques were utilized. PROCEDURE: The risks, benefits, and alternatives to the procedure were explained to the patient. The specific risk of hemorrhage requiring further treatment or intervention was detailed and accepted. Follow-up instructions were discussed with the patient as well. Written informed consent was obtained. The patient was brought into the CT suite and placed in the prone position. . An appropriate entry site was identified. The overlying skin was prepped and draped in the usual sterile fashion. 1% lidocaine was administered subcutaneously for local anesthesia. Conscious sedation was performed. The patient received 2 mg of Versed and 50 mcg of fentanyl intravenously. Conscious sedation was started 9:53 AM and terminated at 10:13 AM. The patient was independently monitored by the department nurse. Under CT guidance, a total of 4 passes were performed utilizing a 18-gauge core biopsy needle system. The specimens were then placed in the appropriate fluid and transported to the laboratory for analysis. Hemostasis was obtained. The patient tolerated the procedure well without immediate complications. CT/Biopsy/Inj or Needle Placement IMPRESSION: Successful CT guided core biopsy of the left retroperitoneal lymph node, as described above. The conscious sedation protocol was followed. Electronically Signed: Dylan Abdalla, at 12:27 EST , Service support ,
[2019-09-05 08:39] LABS: International Normalized Ratio 1.1; Prothrombin Time (Protime)PT. 13.8 SECONDS (11.7-14.9)
[2019-09-05 09:06] LABS: Platelet Count 149 K/mm3 (150-450)
[2019-09-05] MEDS: 0.9% Normal Saline 1,000 ML IV.SOLN. 1000 ML (09:52)
[2019-09-05] MEDS: fentaNYL 100 MCG/2 ML Ampul IV (09:53)
[2019-09-05] MEDS: Midazolam 2 MG/2 ML Syringe IV (09:53)
--- NOTE | 2019-09-05 10:12 | ASPIGT_PTH ---
PATIENT: MYRNA CAPPS Jr. LOC: CT U#:[id number] AGE/SX: 75/M ROOM: RE09/05/[address]: Dr. Esteban Ramos DO : 1950 BED: DIS: SPEC #: [id number] RECD: 09/05/19 12:43 STATUS: KEO RELg #: [id number] DAYANARA: 09/05/19 10:[address]: Esteban Ramos DEPT: SURGICAL PATHOLOGY RECD BY: Leonardo Carranza ENTERED: 09/05/19 12:44 SP TYPE: ASP RAD OTHR DR: DO Xavier Morton DO Tissues: LYMPH NODE BIOPSY Procedures: FNA Specimen Adequacy Special Stain Group II Surgery Specimen Level IV Imprint (control) HEADER OPERATION: CT-guided retroperitoneal lymph node biopsy PRE-OP DIAGNOSIS: Abnormal CT TISSUE SUBMITTED: Retroperitoneal lymph node 18 gauge core x4 MICROSCOPIC DIAGNOSIS Retroperitoneal lymph node, biopsy: Metastatic adenocarcinoma, consistent with colonic primary. See comment. SJ:claudio 09/06/19 COMMENT The specimen is evaluated at the time of biopsy by Dr. Bocanegra. Immediate Evaluation = Lymph node tissue with malignant cells present derived from nonsmall cell carcinoma. Immunohistochemistry ([id number]) supports the above diagnosis. Please make reference to previous specimen ([id number]) right colon, hemicolectomy with diagnosis of invasive adenocarcinoma. MICROSCOPIC DESCRIPTION Slides are reviewed. GROSS DESCRIPTION Received in fixative is one container labeled with the patient's name and designated retroperitoneal lymph node. The specimen consists of multiple irregular fragments of becker soft tissue that in aggregate measure 1 x 0.1 x 0.1 cm. The specimen is totally submitted in one cassette. One touch imprint is prepared at the time of biopsy. A core is also saved in RPMI for flow cytometry study in case it is needed. / SORAYA:claudio 09/05/19 Core saved for flow cytometry study is submitted in cassette 2. / SORAYA:claudio 09/06/19 TC:0 [facility]: [id number], [id number]
--- NOTE | 2019-09-05 12:02 | NURSING ---
0.9% 1 L NS STOP TIME AT 1118.
== END ==
PROVIDERS: Family Provider Preventive Medicine Occupational Medicine; PCP Preventive Medicine Occupational Medicine; Referring Provider Internal Medicine Hematology & Oncology; Visit Provider Internal Medicine Hematology & Oncology
DX: C77.2 Secondary and unspecified malignant neoplasm of intra-abdominal lymph nodes (principal)
CPT/HCPCS: 36415; 77012; 85049; 85610; 88172; 88305; 88313; 88341; 88342; 99156; 99157; J7030; A4216

== ENCOUNTER 2019-09-05 16:21 | Emergency (ER) | payer MEDICARE, SELFPAY ==
[2019-01-23 14:14] VITALS: BMI 34.3
[2019-09-05] VITALS (8 sets, daily range): BP systolic 112–175; BP diastolic 72–113; PULSE 60–77; RESP 16–18; TEMP 36.7; O2SAT 93–100; BMI 34.7; BMI 34.4
--- NOTE | 2019-09-05 16:36 | CT_ITS ---
We are attempting to reach an attending provider to discuss findings. An addendum with communication details will be sent when the communication is complete. STUDY: CT ABDOMEN AND PELVIS WITH CONTRAST REASON FOR EXAM: Male, 69 years old. Abdominal pain, status post biopsy today RADIATION DOSAGE (If Supplied By Facility): CTDIvol = ( 16.97 ) mGy, DLP = ( 1294.82 ) mGycm TECHNIQUE: Transaxial images were obtained from the dome of the diaphragm to the symphysis pubis with oral contrast. GASTROGRAPHIN 15ML, 100ML [id number] was administered. Sagittal and coronal images were reconstructed. Individualized dose optimization techniques were used for this CT. COMPARISON: Prior study of 08/26/2019 FINDINGS: There is a 4 mm right middle lobe nodule, stable in the interval. The visualized portions of the heart are within normal limits. There is a 1.3 cm cyst of the anterior left hepatic lobe. There are several tiny calcified gallstones. Normal spleen. Normal pancreas. Normal bilateral adrenal glands. Normal right kidney. Normal left kidney. Normal visualized stomach. Normal small intestine. There are postsurgical changes in the proximal transverse colon. There is non-visualization of the appendix. Normal abdominal aorta. Normal inferior vena cava. There is a large hematoma with central active bleeding anterior to the left psoas, extending into the left pelvis, measuring overall approximately 11.6 x 8.3 x 13.2 cm. There is surrounding fatty stranding. Normal urinary bladder. The prostate is enlarged. The seminal vesicles and seminal vesicle angles are preserved. Normal abdominal wall. There is endplate spondylosis of the visualized thoracolumbar spine. CT/Abdomen/Pelvis WITH Contrast IMPRESSION: 1. Large hematoma with central active bleeding anterior to the left psoas, extending into the left pelvis, measuring overall approximately 11.3 x 8.3 x 13.2 cm. There is surrounding fatty stranding. 2. Stable 4 mm right middle lobe nodule. 3. 1.3 cm cyst of the anterior left hepatic lobe. 4. Cholelithiasis. 5. Postsurgical changes of proximal transverse colon. 6. Enlarged prostate. Electronically Signed: Farhan Leong MD at 19:32 EST , Service support ,
--- NOTE | 2019-09-05 16:38 | ED.VISSUMM ---
- ER Visit Summary Date of Service: 09/05/19 Chief Complaint: [Abdominal pain] History of Present Illness: The patient is a 69 M presents to the emergency department with complaint of diffuse abdominal pain that started around 11:30 AM today. Patient states that this morning he had a CT-guided biopsy performed at our hospital to evaluate a peritoneal lymph node. Patient states that the biopsy site went through his left lower back and he had severe pain at the time of the biopsy. After the biopsy patient went to eat and was feeling nauseated and became sweaty. Continue to complain of pain diffusely to his abdomen and has pain with movement of his left lower extremity. Denies any weakness to the extremity. He denies any numbness or tingling in the extremity.] Patient's last bowel movement was this morning. He denies any urinary symptoms. He was able to urinate prior to arrival in the emergency department. He denies any fevers. Patient does have history of coronary artery disease, diabetes, hypertension, GERD, and history of colon cancer. Patient's had prior right hemicolectomy as well as cardiac stents and rectal surgery. Physical Examination: [HEENT-PERRLA, EOMI. Cranial nerves II through XII grossly intact. TMs clear. Mucous membranes moist. No adenopathy. Cardiovascular-regular rate and rhythm without murmur or ectopy Lungs-clear to auscultation, chest wall stable without crepitus or subcu emphysema Abdomen-normoactive bowel sounds, soft. Patient has some diffuse tenderness palpation. There is no rebound, rigidity, or perineal signs. Back exam-patient has CVA tenderness on the left. Patient has a small puncture wound noted with a Band-Aid over it to the left lower lumbar paraspinal region. Negative straight leg raises. Deep tendon reflexes are plus 2 out of 4 bilaterally at the patella Achilles. Patient has normal 5 extension. Extremities-intact ?4, normal range of motion, normal pulses, atraumatic] Test Results: [CBC with differential shows a white count of 8.6, hemoglobin 15, hematocrit 44, platelets 145. Chemistries unremarkable. CT scan of the abdomen and pelvis with IV and p.o. contrast showed a large hematoma with central active bleeding anterior to the left psoas extending into the left pelvis measuring overall 11.3 x 8.3 x 13.2 cm. There is surrounding fatty stranding.] Emergency Department Course and Treatment: [Patient was given normal saline on arrival. Patient case was discussed with general surgeon on-call Dr. Luciano Ybarra who asked that we transfer patient. Patient's insurance dictates that he go to [facility]. I discussed case with surgeon at [facility] Dr. Dumont who accepted transfer of patient and I am told he had a interventional radiology there as well.] Treatment Plan: [Transfer to [facility]] Disposition: [Transfer] Impression: [Retroperitoneal hemorrhage secondary to CT-guided needle biopsy] This note was generated with [employer] dictation software. It may contain incorrect words, spelling, and punctuation that were not noted in review of the chart prior to signing ED Disposition - Plan for ED Patient: Referrals: Xavier El DO [Primary Care Provider] -
[2019-09-05] MEDS: Ondansetron 4 MG/2 ML Vial IV (16:48)
[2019-09-05] MEDS: 0.9% Normal Saline 1,000 ML 125 ML IV (16:48)
[2019-09-05] MEDS: HYDROmorphone 1 MG/ML Syringe IV (16:49)
[2019-09-05 16:55] LABS: Absolute Neutrophil Count 7.4 X10^3/uL (2.0-7.7); Basophil# 0.03 X10^3/uL; Basophil% 0.4 % (0-1); Eosinophil# 0.02 X10^3/uL; Eosinophils% 0.2 % (0-5); Hematocrit 44.3 % (40-54); Hemoglobin 15.2 g/dL (13.0-16.5); Lymphocyte % 5.8 % (19-41); Mean Corp Hgb Conc 34.3 g/dL (32-36); Mean Corpuscular Hgb 30.6 pg (27.0-32.0); Mean Corpuscular Volume 89.3 fL (80-94); Monocyte# 0.56 X10^3/uL; Monocyte% 6.5 % (0-10); NRBC Flagged by Analyzer 0 % (0-5); Neutrophil # 7.41 X10^3/uL (2.7-7.7); Neutrophil % 86.6 % (47-70); POSITIVE DIFFERENTIAL YES; Platelet Count 145 K/mm3 (150-450); RBC Distribution Width CV 12.4 % (11.6-14.6); RBC Distribution Width SD 40.5 fl (35.1-43.9); Red Blood Count 4.96 M/mm3 (4.6-6.2); White Blood Count 8.6 K/mm3 (4.4-11.0)
[2019-09-05 17:06] LABS: Differential Indicated SCAN CRITERIA MET
[2019-09-05 17:11] LABS: Anion Gap 9 (5-15); BUN 11 mg/dL (7-18); BUN/Creat Ratio 8.4 RATIO (10-20); Calcium,Total 8.4 mg/dL (8.5-10.1); Chloride 103 mmol/L (98-107); Creatinine, Serum 1.31 mg/dL (0.70-1.30); EST Glomerular Filtration Rate 58 mL/min (>60); Est Glom Filt Rate - Afr Amer 70 mL/min (>60); Estimated Creatinine Clearance 55.73 ml/min; Glucose 174 mg/dL (74-106); Potassium 3.6 mmol/L (3.5-5.1); Sodium Level 136 mmol/L (136-145)
[2019-09-05 17:47] LABS: Platelet Estimate SLT DEC (ADEQ); Red Cell Morphology NORM C+C NORMAL (NORM C&C)
[2019-09-05] MEDS: proMETHazine 25 MG/ML Syringe 12.5 MG IV (19:41)
[2019-09-05] MEDS: HYDROmorphone 0.5 MG/0.5 ML SYRINGE IV (19:43)
[2019-09-05 19:54] LABS: Bacteria 0 SEEN /hpf (None Seen); Mucous, Urine 0 SEEN /hpf (<or=2+); Red Blood Cells-Urine 0 SEEN /hpf (0-5); Squamous Epithelial Cells - UA 0 SEEN /hpf (0-5); White Blood Cells 0 SEEN /hpf (0-5)
[2019-09-05 20:07] LABS: Color, Urine Yellow (Yellow); Glucose, Dipstick 1000 mg/dl (Normal); Ketone-Dipstick 15 mg/dl (Negative); Leukocyte Esterase-Dipstick Negative /ul (Negative); Nitrite-Dipstick Negative (Negative); Occult Blood-Urine Negative /ul (Negative); Protein-Dipstick Negative (Negative); Urine Bilirubin Dipstick Negative (Negative); Urine Clarity Clear (Clear); Urine Urobilinogen Normal (Normal)
--- NOTE | 2019-09-05 21:26 | ED.RN ---
spoke to danny patient has a bed at this time. bed is dirty waiting to be cleaned
== END 2019-09-05 22:53 | disposition short-term general hospital (02) ==
LOC: ED 16:57
PROVIDERS: Emergency Provider Emergency Medicine; Family Provider Preventive Medicine Occupational Medicine; PCP Preventive Medicine Occupational Medicine
DX: S36.898A Other injury of other intra-abdominal organs, initial encounter (principal); C77.2 Secondary and unspecified malignant neoplasm of intra-abdominal lymph nodes; C18.9 Malignant neoplasm of colon, unspecified; Z79.01 Long term (current) use of anticoagulants; I25.10 Atherosclerotic heart disease of native coronary artery without angina pectoris; E11.9 Type 2 diabetes mellitus without complications; I10 Essential (primary) hypertension; K21.9 Gastro-esophageal reflux disease without esophagitis; R89.7 Abnormal histological findings in specimens from other organs, systems and tissues; Z85.038 Personal history of other malignant neoplasm of large intestine; Z90.49 Acquired absence of other specified parts of digestive tract; Z95.5 Presence of coronary angioplasty implant and graft; Z79.02 Long term (current) use of antithrombotics/antiplatelets; Z79.899 Other long term (current) drug therapy; Y84.8 Other medical procedures as the cause of abnormal reaction of the patient, or of later complication, without mention of misadventure at the time of the procedure; Y92.238 Other place in hospital as the place of occurrence of the external cause; Y93.89 Activity, other specified; Y99.8 Other external cause status
CPT/HCPCS: 49180; 36415; 74177; 77012; 80048; 81001; 85025; 85049; 85610; 88172; 88305; 88313; 88341; 88342; 96361; 96374; 96375; 96376; 99156; 99157; 99284; J7030; Q9967; A4216; J2405

== ENCOUNTER → 2019-09-13 09:13 | Outpatient (CLI) | payer MEDICARE, SELFPAY ==
[2019-01-23 14:14] VITALS: BMI 34.3
[2019-09-05 16:23] VITALS: BMI 34.4
== END ==
PROVIDERS: Visit Provider Internal Medicine Hematology & Oncology
DX: D49.0 Neoplasm of unspecified behavior of digestive system (principal)

== ENCOUNTER → 2019-09-23 10:48 | Outpatient (CLI) | payer MEDICARE, SELFPAY ==
[2019-01-23 14:14] VITALS: BMI 34.3
[2019-09-05 16:23] VITALS: BMI 34.4
[2019-09-23 11:29] LABS: Absolute Lymphocyte Count 0.63 X10^3/uL (0.83-4.51); Absolute Neutrophil Count 5.1 X10^3/uL (2.0-7.7); Basophil# 0.03 X10^3/uL; Basophil% 0.5 % (0-1); Eosinophil# 0.08 X10^3/uL; Eosinophils% 1.2 % (0-5); Hematocrit 39.1 % (40-54); Hemoglobin 12.9 g/dL (13.0-16.5); Lymphocyte # 0.63 X10^3/ul (4.0); Lymphocyte % 9.8 % (19-41); Mean Corpuscular Hgb 30.2 pg (27.0-32.0); Mean Corpuscular Volume 91.6 fL (80-94); Mean Platelet Vol. 8.5 fl (6.2-12.0); Monocyte# 0.58 X10^3/uL; NRBC Flagged by Analyzer 0 % (0-5); Neutrophil # 5.06 X10^3/uL (2.7-7.7); Neutrophil % 78.7 % (47-70); Platelet Count 242 K/mm3 (150-450); RBC Distribution Width CV 12.4 % (11.6-14.6); RBC Distribution Width SD 41.1 fl (35.1-43.9); Red Blood Count 4.27 M/mm3 (4.6-6.2); White Blood Count 6.4 K/mm3 (4.4-11.0)
== END ==
PROVIDERS: Family Provider Preventive Medicine Occupational Medicine; PCP Preventive Medicine Occupational Medicine; Referring Provider Physician Assistant; Visit Provider Physician Assistant
DX: Z01.818 Encounter for other preprocedural examination (principal)
CPT/HCPCS: 36415; 85025

== ENCOUNTER 2019-10-02 07:24 | Day surgery (SDC) | payer MEDICARE, SELFPAY ==
[2019-01-23 14:14] VITALS: BMI 34.3
[2019-09-05 16:23] VITALS: BMI 34.4
--- NOTE | 2019-10-01 09:18 | PCM.HP.BLA ---
History and Physical Date of Admission: 10/02/19 HISTORY AND PHYSICAL ? Barry Jorgensen 1950 ? ? REFERRING PHYSICIAN: ??Esteban Ramos, DO ? CHIEF COMPLAINT: ??Consult (Consult Port placement) ? HPI: The patient is a 69 year old male with a diagnosis of?metastatic stage IIIA colon cancer. ?Barry is currently scheduled to undergo chemotherapy and needs vascular access for treatment. ?The patient denies a prior history of central venous access or clavicular injury.? The patient is being seen by me today at the request of ?for my opinion and advice regarding port placement.? ? Patient had cardiac stents placed in January 2019, and is following with Dr. Grigsby. ?He is currently on Plavix and aspirin. ?He notes apprehension as he just recently had a biopsy with significant bleeding afterward although he had been off of his Plavix for 5 days. ? ? PAST MEDICAL HISTORY PAST MEDICAL HISTORY Diagnosis Date ? BPH (benign prostatic hyperplasia) 09/02/2010 ? Colon cancer (HCC) 03/2018 ? Esophageal reflux 02/02/2008 ? Heart attack (HCC) 04/2017 ? Hernia of other specified sites of abdominal cavity without mention of obstruction or gangrene ? ? rectal ? Renal calculus ? ? Vasomotor rhinitis 09/02/2010 ? PAST SURGICAL HISTORY PAST SURGICAL HISTORY Procedure Laterality Date ? COLONOSCOPY ? 03/06/2019 ? benign polyps, repeat in 3 years ? LAPAROSCOPIC HEMICOLECTOMY ? 03/20/2018 ? lap extended right hemicolectomy [facility] ? PAST SURGICAL HISTORY OF Right 1980 ? detatched retina ? PAST SURGICAL HISTORY OF ? ? ? removal of kidney stone ? PAST SURGICAL HISTORY OF ? 1980 ? rectal surgery? ? PRQ CARDIAC STENT W/ANGIO 1 VSL ? 04/2017 ? ? CURRENT MEDICATIONS Current Outpatient Medications Medication Sig Dispense Refill ? ondansetron (ZOFRAN) 8 mg tablet Take 1 tablet by mouth every 8 hours as needed for Nausea/Vomiting. 270 tablet 2 ? clopidogrel (PLAVIX) 75 mg tablet Take 75 mg by mouth once daily. ? ? ? psyllium husk (METAMUCIL ORAL) Take 2 Tablespoonsful by mouth once daily as needed. ? ? ? glucosamine/msm/chondroit sulf (GLUCOSAMINE 2HOV-DER-BDUJTPZEB ORAL) Take 1 tablet by mouth once daily. ? triamcinolone acetonide (NASACORT AQ) 55 mcg nasal inhaler Use 2 Sprays in the nose once daily. ? ? ? aspirin, enteric coated (ECOTRIN LOW STRENGTH) 81 mg EC tablet Take 81 mg by mouth once daily. ? ? ? atorvastatin (LIPITOR) 80 mg tablet Take 80 mg by mouth once daily. ? ? ? lisinopril (ZESTRIL) 20 mg tablet Take 40 mg by mouth once daily. ? metoprolol tartrate, short acting, (LOPRESSOR) 25 mg tablet Take 25 mg by mouth twice daily. ? ? ? polyethylene glycol 3350 (MIRALAX ORAL) Take 1 scoop by mouth once daily. Prn ? tamsulosin ER (FLOMAX) 0.4 mg cp24 Take 1 capsule by mouth daily at bedtime. 90 capsule 0 ? RABEprazole (ACIPHEX) 20 mg tablet Take 1 tablet by mouth once daily. (Patient taking differently: Take 20 mg by mouth twice daily. ) 90 tablet 0 ? No current facility-administered medications for this visit.? ? ALLERGIES:?Oxaliplatin; Prilosec [Omeprazole]; Zyprexa [Olanzapine] ? PERSONAL HISTORY:? SOCIAL HISTORY Social History ? Tobacco Use ? Smoking status: Never Smoker ? Smokeless tobacco: Never Used Substance Use Topics ? Alcohol use: No ? Drug use: No ? FAMILY HISTORY:? FAMILY HISTORY FAMILY HISTORY Problem Relation Age of Onset ? Heart Mother ?ASHD,valve disease ? Ischemic Heart Disease Father 80 ? Hypertension Father ? ? Diabetes Father ? ? Ischemic Heart Disease Sister ? ? None Sister ? ? None Sister ? ? None Sister ? ? REVIEW OF SYMPTOMS: ??The review of systems data was entered by the nurse and reviewed by me ? Nursing Notes: Ramirez Florentino LPN ?09/23/2019 ?9:33 AM ?Signed REVIEW OF SYSTEMS: ?General:???The patient denies fatigue, denies weight loss, denies weight gain, denies feeling hot, and denies feelings of cold. ?Eyes: ?The patient denies glaucoma, NOTES eye injury/surgery, does not wear glasses or contacts. ?Ear/Nose/Throat: ?The patient denies allergies, NOTES hayfever, denies ear infections, and denies bloody noses. ?Cardiovascular: ?The patient denies chest pain, NOTES heart disease, NOTES high blood pressure,NOTES cardiac stent, NOTES prior heart attack, denies irregular heart beat, NOTES high cholesterol, ?denies poor circulation, denies heart failure, other cardiac issues, denies claudication, denies cold feet, denies peripheral arterial stent. ?Respiratory: ?The patient denies tuberculosis, denies pneumonia, denies frequent cough, denies pulmonary embolism, denies shortness of breath, and denies coughing up blood. ?Gastrointestinal: ?The patient denies difficulty swallowing, NOTES acid reflux, NOTES ulcers, denies vomiting, denies jaundice/hepatitis, denies gallbladder problems, denies black or tarry stools, denies hemorrhoids, denies bleeding from rectum, denies diverticulitis, denies constipation, denies diarrhea, denies loss of stool control, and denies hernias. ?Kidney/Bladder: ?The patient NOTES kidney stones, denies urine infections, and denies bloody urine. ?Skin: ?The patient denies a history of skin cancer, denies bleeding/changing moles, and denies a history of skin rash. ?Neurologic: ?The patient denies a history of epilepsy/convulsions, denies headaches, denies head/spinal injuries, and denies stroke/TIA. ?Psychiatric: ?The patient denies psychiatric medications, denies depression, and denies voices, denies substance abuse. ?Endocrine: ?The patient denies thyroid disorders, denies diabetes, and denies hormonal problems. ?Hematologic: ?The patient denies a history of bruising, NOTES bleeding, and denies anemia, denies blood clots. ?Infections: ?The patient denies a history of measles and mumps, denies rheumatic fever, and denies sexually transmitted diseases. ?Musculoskeletal: ?The patient denies back pain/injury, denies back problems, NOTES sciatica, denies knee/foot trouble, denies arthritis, or denies gout. ? ? When was patient's last Mammogram screening? N/A ? ?Last Colonoscopy: ?03/06 ? Ramirez Florentino LPN I have confirmed and edited as necessary, the PFSH and ROS obtained by others. ? PHYSICAL EXAMINATION: ? General: ?The patient is 69 year old male, well nourished, well hydrated in no acute distress. ?The patient is oriented to time, place, and person. ? VITALS:?Blood pressure 142/88, pulse 83, temperature 36.6 ?C (97.9 ?F), temperature source Temporal Artery, height 177.8 cm (5' 10), weight 110.5 kg (243 lb 9.6 oz), SpO2 100 %.?Body mass index is 34.95 kg/m?.? ? HEENT: ?Normal cephalic, ataumatic, pupils are equally round, sclera are anicteric, mucous membranes are moist, oropharynx is clear. ?Neck has no masses, asymmetry or lymphadenopathy. ? ? Respiratory: ?Clear to auscultation and percussion. ?Normal respiratory excursion and pattern. ? Cardiac: ?Examination is regular rate and rhythm. ? Abdominal exam: ?Soft, nontender, ?with no palpable masses. ?No hepatosplenomegaly. ?No palpable hernias. ? Rectal exam:??exam deferred ? Extremities: ?no clubbing, cyanosis or edema. ?No adenopathy. ? Other: ? ? LABORATORY VALUES: As Noted ? RADIOLOGIC STUDIES: ?As Noted ? ? Assessment ? IMPRESSION:??Metastatic colon cancer, need for IV access ? PLAN:??I have reviewed my findings with Dr. Ferreira, who plans to perform subclavian?port a cath placement. ?The planned surgical procedure was discussed extensively with the patient. ?The risks, benefits, anticipated outcomes and possible complications were mentioned. ?My staff has also explained the procedure in understandable terms and the patient was given the option to take printed material concerning the planned procedure. ?The patient had the opportunity to ask questions concerning the planned procedure. ?The patient freely consents to the planned procedure. ? Planned Procedure:???Laterality TBD??Subclavian portacat - [id number] ? Patient Weight ?Last 1 Encounter Wt Readings: ???Date: ?Wt: ???09/23/2019 ??110.5 kg (243 lb 9.6 oz) ? Antibiotic:???Ancef 2gm IVPB classification inspector to OR ? Planned Anesthetic:?MAC with local? Dr. Ferreira may?plan to access the port at the time of surgery. ? Cardiac clearance request was sent to Dr. Grigsby. ?Received completed form which stated patient intermediate risk for port placement, and gave permission to hold Plavix for 5 days but patient needs to continue his aspirin-refer to scanned document. ?Patient aware of these instructions and verbalized understanding. ? 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 ? Patient to follow up with me 1 week post-operatively ? ? Tarsha Flores PA-C
[2019-10-02] VITALS (7 sets, daily range): BP systolic 135–158; BP diastolic 85–95; PULSE 52–67; RESP 16; TEMP 36.6–36.8; O2SAT 96–97; BMI 35.6
[2019-10-02] MEDS: Lactated Ringers 1,000 ML 100 ML IV (07:56)
[2019-10-02] MEDS: Cefazolin 2 GM in 0.9% Normal Saline 100 ML IV (09:22)
[2019-10-02] MEDS: Bupivacaine Mpf 0.5% 30 ML VIAL (09:40)
--- NOTE | 2019-10-02 10:15 | OP.PCM_ITS ---
Report of Operation Date of Procedure: 10/02/19 Pre-Operative Diagnosis: NEED FOR IV ACCESS Post-Operative Diagnosis: NEED FOR IV ACCESS Surgery/Procedure Performed:: LEFT SUBCLAVIAN PORTACATH PLACEMENT WITH FLUOROSCOPY network internship: None Type of Anesthesia:: Local MAC Anesthesiologist: Yonathan Denny - ASA3 Specimen's removed: NONE Estimated Blood Loss (mL): 10 Fluids Replaced: 800 Description of Procedure: The patient was brought to the operating suite. The left subclavian site was marked in the holding area and the patient concurred this was the planned operative site. Sign was performed verifying patient, site, position, skip antibiotic prophylaxis-2 g of Ancef and DVT prophylaxis with SCDs. Following IV sedation, the left neck and chest were prepped and draped in the usual fashion. Timeout was performed verifying patient, site, position. Local anesthetic was injected and a Seldinger needle was used to access the left subclavian vein without difficulty. Under fluoroscopic control, a guidewire was inserted and advanced the SVC RA region. Local anesthetic was injected and incision made and pocket created for the port site. Next the catheter was tunneled from the wire site incision to the port site incision. Under fluoroscopic control introducer sheath and dilator were inserted over the wire. The wire and dilator removed. The catheter was fed through the introducer suture sheath and adjusted to the SVC RA region. There was good return of venous blood and easy inflow of saline through the system. Fluoroscopy demonstrated good positioning of the catheter. Next the catheter was cut to length affixed to the port with the locking ring and secured in the pocket with 2-2-0 Prolene sutures. Subcutaneous fat closed with interrupted 3-0 Vicryl suture. Skin closed with 4-0 Biosyn interrupted and running subcuticular sutures. Fluoroscopy demonstrated good position of the system. The port was accessed. There was good return of venous blood. Inflow of saline was easy. The port was then flushed with 2-3 cc of 100 unit per heparin solution. A dressing was applied. The patient was brought to recovery room in stable condition. Grafts/Implants Used: POWERPORT [id number], LOT [id number] EXP - 01/15/2021
--- NOTE | 2019-10-02 10:24 | DCINST_ITS ---
Discharge Diet: No Restrictions - Pain medication may cause nausea. You should typically eat light foods as you take your pain medication. Discharge Activity: Return to Normal Activity, May Shower - with the bandage in place 1-2 days after surgery. DO NOT SHOWER WHEN YOUR PORT IS ACCESSED. Additional Activity Instructions:: May not drive, work with heavy equipment, or sign legal documents for [address] if you are no longer taking narcotic pain medications. You may drive when you are no longer taking pain medications. Additional Dressing/Incision Instructions:: Leave the bandage on for 2-3 days. When you remove the bandage, leave the steri-strips intact until they fall off. Allergies/Adverse Reactions: Allergies olanzapine [From Zyprexa] Adverse Reaction (Severe, Verified 10/02/19 07:44) tremors, muscle twitching oxaliplatin Adverse Reaction (Severe, Verified 10/02/19 07:44) neuropathy omeprazole [From Prilosec] Adverse Reaction (Verified 10/02/19 07:44) lowers WBCs Medications to take at Discharge Tamsulosin HCl [Flomax] 0.4 mg PO QHS 05/13/17 Glucosamine/MSM/Chondroitin A [Glucosamine Chondroit MSM Tab] 1 ea PO DAILY 03/14/18 Aspirin E.C. [Ecotrin] 81 mg PO DAILY@0800 03/19/18 triamcinolone acetonide 55 mcg nasal spray aerosol 2 spray INTRANASAL QHS 04/18/18 clopidogrel 75 mg tablet 75 mg PO DAILY #90 tab 02/06/19 polyethylene glycol 3350 17 gram oral powder packet 17 g PO DAILY PRN ea 02/06/19 psyllium husk (aspartame) 3.4 gram oral powder packet 1 packet PO DAILY PRN 02/06/19 lisinopril 40 mg tablet 40 mg PO DAILY #90 tab 03/04/19 atorvastatin 80 mg tablet 80 mg PO QHS #90 tab 06/27/19 metoprolol tartrate 25 mg tablet 25 mg PO BID #180 tab 06/27/19 rabeprazole 20 mg tablet,delayed release 20 mg PO BID tab 06/27/19 Ondansetron [Zofran] 8 mg PO Q8H PRN PRN 09/25/19 Oxycodone HCl/Acetaminophen [Percocet 5/325] 1 tab PO Q4H PRN PRN 5 Days #10 tab 10/02/19 The following prescriptions were given: Oxycodone HCl/Acetaminophen [Percocet 5/325] 1 tab PO Q4H PRN PRN 5 Days #10 tab PRN Reason: Pain Prescription Printed Primary Care Physician: Xavier El DO [Primary Care Provider] - Test Results: Test results from this visit will be discussed in further detail at your follow- up appointment, if applicable. Please Follow Up With: Luciano Ferreira MD - [phone] When: Please plan to follow up in 7 days in the office.
--- NOTE | 2019-10-02 10:32 | RAD_ITS ---
STUDY: X-RAY CHEST REASON FOR EXAM: Male, 69 years old. POST PORT PLACEMENT TECHNIQUE: Single AP portable view of the chest. COMPARISON: Comparison is made with prior study dated January 17, 2019. FINDINGS: A left-sided portacatheter has been placed. The tip is at the junction of the superior vena cava and right atrium. Hyperinflation. The lungs are clear. There is no demonstrated pleural abnormality. There is mild cardiac enlargement. Normal mediastinum and sandro. Normal visualized pulmonary arteries. Normal visualized aortic arch and descending thoracic aorta. There are diffuse degenerative changes of the visualized thoracic spine. Metallic clips are seen in the right humeral head most likely secondary to prior rotator cuff surgery. There is no demonstrated abnormality of the visualized soft tissue structures of the upper abdomen. RAD/CXR for Line Placement IMPRESSION: The tip of the left portacatheter is at the junction of the superior vena cava and right atrium. Electronically Signed: Dylan Abdalla, at 11:12 EST , Service support ,
== END 2019-10-02 11:25 | disposition home or self-care (01) ==
LOC: SDC 07:25 → AC 07:25
PROVIDERS: Family Provider Preventive Medicine Occupational Medicine; PCP Preventive Medicine Occupational Medicine; Referring Provider Surgery; Visit Provider Surgery
PROC: (CPT 36561; principal; 2019-10-02 08:45)
DX: Z45.2 Encounter for adjustment and management of vascular access device (principal); C18.4 Malignant neoplasm of transverse colon; C77.2 Secondary and unspecified malignant neoplasm of intra-abdominal lymph nodes; I25.10 Atherosclerotic heart disease of native coronary artery without angina pectoris; J30.0 Vasomotor rhinitis; E78.00 Pure hypercholesterolemia, unspecified; N40.0 Benign prostatic hyperplasia without lower urinary tract symptoms; K21.9 Gastro-esophageal reflux disease without esophagitis; F41.9 Anxiety disorder, unspecified; Z79.02 Long term (current) use of antithrombotics/antiplatelets; Z79.82 Long term (current) use of aspirin; Z79.899 Other long term (current) drug therapy; I25.2 Old myocardial infarction; Z87.442 Personal history of urinary calculi; Z95.5 Presence of coronary angioplasty implant and graft
CPT/HCPCS: 00532; 36561; 71045; 77001; J7120; C1788

== ENCOUNTER 2020-02-03 10:12 | Emergency (ER) | payer MEDICARE, SELFPAY ==
[2019-01-23 14:14] VITALS: BMI 34.3
[2019-10-02 07:44] VITALS: BMI 35.6
[2020-02-03 10:14] VITALS: BP 153/108; PULSE 70; RESP 18; TEMP 36.5; O2SAT 98; BMI 35.4
[2020-02-03 10:31] VITALS: BP 144/102; PULSE 86; RESP 14; O2SAT 96
--- NOTE | 2020-02-03 10:59 | EKG12_ITS ---
Test Reason : CP Blood Pressure : / mmHG Vent. Rate : 084 BPM Atrial Rate : 084 BPM P-R Int : 170 ms QRS Dur : 100 ms QT Int : 370 ms P-R-T Axes : 045 024 032 degrees QTc Int : 437 ms Normal sinus rhythm Normal ECG Confirmed by CHRISTIAN WILIKNSON MD ([id number]), editor book ALMA DELIA MORA ([id number]) on 02/04/2020 3:41:39 PM Referred By: EVELIA Confirmed By:CHRISTIAN WILKINSON MD
--- NOTE | 2020-02-03 11:00 | CT_ITS ---
STUDY: CTA CHEST REASON FOR EXAM: Male, 70 years old. Acute substernal chest pain RADIATION DOSAGE (If Supplied By Facility): CTDIvol = ( 10.02 ) mGy, DLP = ( 597 ) mGycm TECHNIQUE: The examination was performed with the intravenous administration of IV 100mL Isovue-370. Post-processing of the angiographic images was performed, with multiplanar reformation and 3D reconstruction. Individualized dose optimization techniques were used for this CT. COMPARISON: 08/26/2019 FINDINGS: Normal enhancement of the main pulmonary artery and right and left pulmonary arteries. Normal enhancement of the bilateral peripheral pulmonary arteries. There is no demonstrated pulmonary embolism. Normal thoracic aorta and visualized great vessels. There is no demonstrated aortic dissection. Normal heart and pericardium. Calcified coronary vessels and stents noted Normal mediastinum. Normal hilar regions. There is peribronchial thickening. The lungs are hyper expanded, with flattening of the hemidiaphragms. Chronic interstitial changes in both lung monroy without a superimposed acute pulmonary process. Normal pleura. Normal chest wall structures. There are degenerative changes of thoracic spine. Limited cuts through the upper abdomen show diffuse fatty infiltration of the liver. CT/CTA Chest W/WO Contrast IMPRESSION: No demonstrated PE, or thoracic aortic aneurysm or dissection Calcified coronary vessels Hyperexpanded lungs with chronic interstitial changes and peribronchial thickening suggesting chronic bronchitis. No organized infiltrate, suspicious groundglass opacifications or nodule noted. Degenerative bony changes Fatty liver Electronically Signed: Yasmani Sparrow MD at 12:25 EDT , Service support ,
[2020-02-03 11:25] LABS: Absolute Lymphocyte Count 0.43 X10^3/uL (0.83-4.51); Absolute Neutrophil Count 1.1 X10^3/uL (2.0-7.7); Basophil# 0.02 X10^3/uL; Basophil% 1.1 % (0-1); Eosinophil# 0.05 X10^3/uL; Eosinophils% 2.8 % (0-5); Hematocrit 41.5 % (40-54); Hemoglobin 13.9 g/dL (13.0-16.5); Lymphocyte # 0.43 X10^3/ul (4.0); Lymphocyte % 24.3 % (19-41); Mean Corp Hgb Conc 33.5 g/dL (32-36); Mean Corpuscular Hgb 30.3 pg (27.0-32.0); Mean Corpuscular Volume 90.6 fL (80-94); Mean Platelet Vol. 8.9 fl (6.2-12.0); Monocyte# 0.19 X10^3/uL; Monocyte% 10.7 % (0-10); NRBC Flagged by Analyzer 0 % (0-5); Neutrophil # 1.05 X10^3/uL (2.7-7.7); Neutrophil % 59.4 % (47-70); POSITIVE DIFFERENTIAL YES; Platelet Count 145 K/mm3 (150-450); RBC Distribution Width CV 14.7 % (11.6-14.6); RBC Distribution Width SD 48.6 fl (35.1-43.9); Red Blood Count 4.58 M/mm3 (4.6-6.2); White Blood Count 1.8 K/mm3 (4.4-11.0)
[2020-02-03 11:26] LABS: Differential Indicated SCAN CRITERIA MET
[2020-02-03 11:48] LABS: ALB/GLOB Ratio 0.9 RATIO (0.9-2.4); AST(SGOT) 20 U/L (15-37); Alanine Aminotransfer ALT/SGPT 44 U/L (16-61); Albumin, Serum 3.7 g/dL (3.2-5.0); Alkaline Phosphatase 85 U/L (45-117); Anion Gap 6 (5-15); BUN 13 mg/dL (7-18); BUN/Creat Ratio 10.7 RATIO (10-20); Calcium,Total 8.9 mg/dL (8.5-10.1); Chloride 103 mmol/L (98-107); Creatinine, Serum 1.21 mg/dL (0.70-1.30); EST Glomerular Filtration Rate 63 mL/min (>60); Est Glom Filt Rate - Afr Amer 77 mL/min (>60); Estimated Creatinine Clearance 59.49 ml/min; Globulin 3.9 g/dL (2.2-4.2); Glucose 155 mg/dL (74-106); Potassium 3.9 mmol/L (3.5-5.1); Protein, Total 7.6 g/dL (6.4-8.2); Sodium Level 136 mmol/L (136-145)
[2020-02-03 11:49] LABS: Differential Comment SCANNED
[2020-02-03 11:50] LABS: Platelet Estimate ADEQUATE (ADEQ); Red Cell Morphology NORM C+C NORMAL (NORM C&C)
[2020-02-03 12:47] VITALS: BP 153/100; PULSE 84; RESP 16; O2SAT 96
--- NOTE | 2020-02-03 12:50 | ED.DCSUM_ITS ---
History of Present Illness Chief Complaint: Chest Pain Informant: Patient Narrative: Patient presents the emergency department for the evaluation of left-sided chest pain neck shoulder pain. Symptoms began on Monday and was more of a muscular ache. By Monday he states he cannot turn his head and it hurt very much to move his shoulder. Today is better but after talking with his oncologist is felt that he should come in for evaluation. He has a history of terminal colon cancer. He has had coronary artery disease with triple-vessel stenting. The patient states this does not feel cardiac. He states that this feels more musculoskeletal with him but he did not want to take any chances. He wears his guitar strap over that left shoulder and is the strap for his chemotherapy pump. He states they are very heavy and wonders if he did something to cause an injury. Past Medical History - Allergies and Home Meds Allergies/Adverse Reactions: Allergies olanzapine [From Zyprexa] Adverse Reaction (Severe, Verified 02/03/20 10:15) tremors, muscle twitching oxaliplatin Adverse Reaction (Severe, Verified 02/03/20 10:15) neuropathy omeprazole [From Prilosec] Adverse Reaction (Verified 02/03/20 10:15) lowers WBCs Primary Care Physician: Xavier El DO [Primary Care Provider] - As Needed Surgical History: - - kidney stone removal w/ stent, rectal surgery, laser eye surgery, right wrist cyst removed, right hemicolectomy, PCI x 1. Smoking Status: Never smoker - Family History Paternal Family History: Family History (Last Reviewed 06/27/19 @ 09:12 by PATRICIA Acosta) Father CAD (coronary artery disease) Mother CAD (coronary artery disease) Family History: Reports: Heart Disease Maternal Family History: Family History (Last Reviewed 06/27/19 @ 09:12 by PATRICIA Acosta) Father CAD (coronary artery disease) Mother CAD (coronary artery disease) Family History: Reports: Heart Disease Review of Systems General: Denies: Chills, Fever, Sweats Eyes: Denies: Visual changes - bilaterally, Diplopia ENT: Denies: Rhinorrhea, Sore throat Cardiovascular: Reports: Chest pain. Denies: Palpitations Respiratory: Denies: Dyspnea, Cough, Dyspnea on exertion Gastrointestinal: Denies: Abdominal pain, Nausea, Vomiting, Diarrhea, Melena, Hematochezia Genitourinary: Denies: Dysuria, Hematuria, Frequency Musculoskeletal: Reports: Neck pain, Extremity Pain. Denies: Back pain Skin: Denies: Rash, Wounds Neurological: Denies: Headache, Weakness, Numbness Physical Exam Vital Signs/Narrative: Vital Signs Temp Pulse Resp BP Pulse Ox 02/03/20 12:47 84 16 153/100 H 96 02/03/20 10:31 86 14 144/102 H 96 02/03/20 10:14 97.7 F L 70 18 153/108 H 98 Inital Vital Signs reviewed: Yes General: Well nourished, Well developed, No Acute Distress Head: Normocephalic, Atraumatic Eyes: Perrl, EOMI ENT: Moist mucous membranes, No rhinorrhea Neck: Supple, - - Patient has tenderness palpation over the trapezius muscle on the left. He also has tenderness and over the anterior upper left chest. The shoulder is generally sore. Neurovascular intact. There is no left arm swelling. He has a port in the left upper chest that appears without complication. Cardiovascular: Regular rate, Regular rhythm, No murmurs Respiratory: No distress, CTA bilaterally, Chest tenderness Abdomen: Soft, Nontender, Nondistended, Normal bowel sounds Back: Normal Inspection Extremities: Nontender, No edema Skin: Normal color, No rash Neurological: Alert, Oriented x3, Cranial nerves II-XII grossly intact, Normal Strength, Normal Sensation Psychological: Normal affect, Normal Mood Diagnostic/Tx/Re-eval Clinical Impression(s) from Imaging Studies Chest CTA 02/03/20 11:00 IMPRESSION: No demonstrated PE, or thoracic aortic aneurysm or dissection Calcified coronary vessels Hyperexpanded lungs with chronic interstitial changes and peribronchial thickening suggesting chronic bronchitis. No organized infiltrate, suspicious groundglass opacifications or nodule noted. Degenerative bony changes Fatty liver Electronically Signed: Yasmani Sparrow MD at 12:25 EDT , Service support , Laboratory Last Values WBC 1.8 K/mm3 (4.4-11.0) L 02/03/20 11:10 RBC 4.58 M/mm3 (4.6-6.2) L 02/03/20 11:10 Hgb 13.9 g/dL (13.0-16.5) 02/03/20 11:10 Hct 41.5 % (40-54) 02/03/20 11:10 MCV 90.6 fL (80-94) 02/03/20 11:10 MCH 30.3 pg (27.0-32.0) 02/03/20 11:10 MCHC 33.5 g/dL (32-36) 02/03/20 11:10 RDW Std Deviation 48.6 fl (35.1-43.9) H 02/03/20 11:10 RDW Coeff of Bernardo 14.7 % (11.6-14.6) H 02/03/20 11:10 Plt Count 145 K/mm3 (150-450) L 02/03/20 11:10 MPV 8.9 fl (6.2-12.0) 02/03/20 11:10 Immature Gran % (Auto) 1.700 % (0.0-0.9) H 02/03/20 11:10 Neut % (Auto) 59.4 % (47-70) 02/03/20 11:10 Lymph % (Auto) 24.3 % (19-41) 02/03/20 11:10 [place] % (Auto) 10.7 % (0-10) H 02/03/20 11:10 Eos % (Auto) 2.8 % (0-5) 02/03/20 11:10 Baso % (Auto) 1.1 % (0-1) H 02/03/20 11:10 Absolute Neuts (auto) 1.1 X10^3/uL (2.0-7.7) L 02/03/20 11:10 Absolute Lymphs (auto) 0.43 X10^3/uL (0.83-4.51) L 02/03/20 11:10 Nucleated RBC % 0 % (0-5) 02/03/20 11:10 Differential Comment SCANNED 02/03/20 11:10 Diff Path Review January02/03/20 11:10 Platelet Estimate ADEQUATE (ADEQ) 02/03/20 11:10 RBC Morphology NORM C+C NORMAL (NORM C&C) 02/03/20 11:10 Sodium 136 mmol/L (136-145) 02/03/20 11:10 Potassium 3.9 mmol/L (3.5-5.1) 02/03/20 11:10 Chloride 103 mmol/L (98-107) 02/03/20 11:10 Carbon Dioxide 27.0 mmol/L (21.0-32.0) 02/03/20 11:10 Anion Gap 6 (5-15) 02/03/20 11:10 BUN 13 mg/dL (7-18) 02/03/20 11:10 Creatinine 1.21 mg/dL (0.70-1.30) 02/03/20 11:10 Estim Creat Clear Calc 59.49 ml/min 02/03/20 11:10 Est GFR (MDRD) Af Amer 77 mL/min (>60) 02/03/20 11:10 Est GFR (MDRD) Non-Af 63 mL/min (>60) 02/03/20 11:10 BUN/Creatinine Ratio 10.7 RATIO (10-20) 02/03/20 11:10 Glucose 155 mg/dL (74-106) H 02/03/20 11:10 Calcium 8.9 mg/dL (8.5-10.1) 02/03/20 11:10 Total Bilirubin 0.60 mg/dL (0.20-1.00) 02/03/20 11:10 AST 20 U/L (15-37) 02/03/20 11:10 ALT 44 U/L (16-61) 02/03/20 11:10 Alkaline Phosphatase 85 U/L (45-117) 02/03/20 11:10 Troponin I < 0.015 ng/mL (<0.045) 02/03/20 11:10 Total Protein 7.6 g/dL (6.4-8.2) 02/03/20 11:10 Albumin 3.7 g/dL (3.2-5.0) 02/03/20 11:10 Globulin 3.9 g/dL (2.2-4.2) 02/03/20 11:10 Albumin/Globulin Ratio 0.9 RATIO (0.9-2.4) 02/03/20 11:10 - EKG Initial EKG Interpretation: Sinus Rhythm - EKG demonstrates a normal sinus rhythm at a rate of 84. No concerning features of ACS. - Medical Decision Making Basic labs showed leukopenia. EKG is a normal sinus rhythm. Troponin is negative. CTA of the chest is negative. I think this is most likely musculoskeletal. It is obviously improving as his neck is range of motion is better today. We can use some low-dose Valium. This will also help him with his sleep. He states the past several nights have been difficult to rest. ED Disposition - Plan for ED Patient: Disposition: Home or Assisted Living Diagnosis: Chest pain, Neck muscle spasm, Adenocarcinoma of cecum, Atherosclerotic heart disease of [place] coronary artery without angina pectoris Instructions: Muscle Spasm Prescriptions: Diazepam [Valium] 5 mg PO Q8 PRN #12 tablet PRN Reason: Muscle Spasm Transmission Status: Sent to [facility] Referrals: Xavier El DO [Primary Care Provider] - As Needed
[2020-02-03 13:11] VITALS: BP 156/103; PULSE 78; RESP 16; O2SAT 97
[2020-02-04 10:53] LABS: Pathologist Review Reviewed
== END 2020-02-03 13:18 | disposition home or self-care (01) ==
PROVIDERS: Emergency Provider Emergency Medicine; PCP Preventive Medicine Occupational Medicine
DX: R07.9 Chest pain, unspecified (principal); M62.838 Other muscle spasm; M25.519 Pain in unspecified shoulder; M54.2 Cervicalgia; C18.0 Malignant neoplasm of cecum; I25.10 Atherosclerotic heart disease of native coronary artery without angina pectoris; Z79.02 Long term (current) use of antithrombotics/antiplatelets; Z79.82 Long term (current) use of aspirin; Z79.899 Other long term (current) drug therapy
CPT/HCPCS: 71275; 80053; 84484; 85025; 93005; 99284; Q9967; A4216